=== PATIENT | male | born 1945 | race Caucasian/White ===

== ENCOUNTER 2023-03-20 17:35 | Inpatient (IN) | payer MEDICARE, BC, SELFPAY ==
[2023-03-20] VITALS (7 sets, daily range): BP systolic 117–159; BP diastolic 62–78; PULSE 82–95; RESP 18; TEMP 36.9; O2SAT 90–96; BMI 35.0
--- NOTE | 2023-03-20 18:48 | ED.LOWEXIN ---
HPI - Extremity Injury (Lower) General Time Seen by Provider: 18:49 <Jonna Valdez MD - Last Filed: 03/21/23 20:51> Date Seen: 03/20/23 <Jonna Valdez MD - Last Filed: 03/21/23 20:51> Chief Complaint: Extremity Pain/Injury, Lower <Jonna Valdez MD - Last Filed: 03/21/23 20:51> Stated Complaint: R knee pain <Jonna Valdez MD - Last Filed: 03/21/23 20:51> Time Seen by Provider: 03/20/23 18:09 <Jonna Valdez MD - Last Filed: 03/21/23 20:51> Source: patient and RN notes reviewed <Jonna Valdez MD - Last Filed: 03/21/23 20:51> Mode of arrival: ambulatory <Jonna Valdez MD - Last Filed: 03/21/23 20:51> Limitations: no limitations <Jonna Valdez MD - Last Filed: 03/21/23 20:51> History of Present Illness HPI Narrative: Eddie is a 77-year-old male ambulatory into the ED with right knee pain. He fell about 2 weeks ago but is knee did not bother him. About 3 days ago his knee started feeling more stiff. He drove up from [place] yesterday where he lives to come back up here in visit, knee was much more stiff, becoming more painful. Today he states he can barely even walk on it. He did start to have some chills and nausea just prior to coming in. He resides in [facility] and is up here visiting. He has had a right total knee arthroplasty sometime in May of 2022 or around there. Within about 3 weeks, he states the knee was infected and they went in and replace some parts. He was on vancomycin for 33 days and then had red man syndrome reportedly. He states they told him he was having a reaction to vancomycin simvastatin and took him off both of those. He went into the doctor and had a rash, was severely swollen. He states they took off 5.5 L and 16 lb via IV diuresis in 24 hours. He states he was told to never use vancomycin again. 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 He notes after the fall 2 weeks ago his knee was not bothering him, was not stiff or painful to walk on it at all. No noted fevers to date. No respiratory symptoms. He does state he has had a history of gout as well. <Jonna Valdez MD - Last Filed: 03/21/23 20:51> Related Data Home Medications: Home Medications Medication Instructions Recorded Confirmed flash glucose sensor (FreeStyle 03/20/23 03/20/23 Nadira 2 Sensor kit) furosemide 20 mg tablet 20 mg PO DAILY PRN swelling 03/20/23 03/20/23 irbesartan 75 mg tablet 75 mg PO DAILY 03/20/23 03/20/23 propranolol 120 mg capsule,24 120 mg PO DAILY 03/20/23 03/20/23 hr,extended release Lactobacillus acidophilus 10 20,000 mmu cells PO DAILY 03/21/23 03/21/23 billion cell capsule (Probiotic) aflibercept 2 mg/0.05 mL 2 mg intravitreal Q4W 03/21/23 03/21/23 intravitreal solution for injection (Eylea) glipizide 10 mg tablet 5 mg PO HS PRN 03/21/23 03/21/23 metformin 1,000 mg tablet 500 - 1,000 mg PO BID 03/21/23 03/21/23 <Jonna Valdez MD - Last Filed: 03/21/23 20:51> Allergies/Adverse Reactions: Allergies Allergy/AdvReac Type Severity Reaction Status Date / Time atorvastatin Allergy Verified 03/20/23 18:29 vancomycin Allergy Verified 03/20/23 18:29 <Jonna Valdez MD - Last Filed: 03/21/23 20:51> Review of Systems Status of ROS: Reports: 6 or more systems reviewed and unremarkable except as noted in History and below <Jonna Valdez MD - Last Filed: 03/21/23 20:51> [facility] Medical History: Medical History (Updated 03/21/23 @ 20:51 by Jonna Valdez MD) Hypertension ?I10 - Essential (primary) hypertension (ICD-10) Gout ?M10.9 - Gout, unspecified (ICD-10) Acid reflux ?K21.9 - Gastro-esophageal reflux disease without esophagitis (ICD-10) <Jonna Valdez MD - Last Filed: 03/21/23 20:51> Surgical History: Surgical History (Updated 03/21/23 @ 04:26 by Melissa Duran RN) Hx of cholecystectomy ?Z90.49 - Acquired absence of other specified parts of digestive tract (ICD-10) History of appendectomy ?Z90.49 - Acquired absence of other specified parts of digestive tract (ICD-10) <Jonna Valdez MD - Last Filed: 03/21/23 20:51> Social History: Social History What is your current living situation?: I presently have a place to live Problems where you live: no known problems Problems where you live details: no known problems In the past 12 months, utilities in danger of being shut off: no In past 12 months, lack of transportation kept you from medical appts, meetings, work, or getting things needed for daily living: no In the past 12 mos, have been you worried that your food would run out before you had money to buy more?: never true In the past 12 mos, the food you bought just didn't last and you didn't have money to buy more?: never true Highest level of school completed/degree received: 12th grade, no diploma Smoking Status: Never smoker Do you use any of these nicotine containing products: None Second hand tobacco smoke exposure: No How often do you have a drink containing alcohol: 2-4 times a month How often do you have six or more drinks on one occasion: Never AUDIT-C Alcohol total score: 2 Non-prescribed substance use: denies use Caffeine: Yes (soda) How often does anyone, including family, friends and others, physically hurt you: never How often does anyone, including family, friends and others, insult or talk down to you: never How often does anyone, including family, friends and others, threaten you with harm: never How often does anyone, including family, friends and others, scream or curse at you: never service: Yes <Jonna Valdez MD - Last Filed: 03/21/23 20:51> Exam Const: Vital Signs, click to edit/add: Vital Signs - 24 hr 03/20/23 22:22 03/20/23 22:23 03/20/23 22:30 Pulse Rate 87 85 84 Respiratory Rate Blood Pressure 117/62 Pulse Oximetry 93 94 92 03/20/23 22:45 03/20/23 23:00 03/20/23 23:15 Pulse Rate 82 82 82 Respiratory Rate Blood Pressure Pulse Oximetry 91 90 92 03/21/23 00:24 Pulse Rate 80 Respiratory Rate 12 Blood Pressure 121/64 Pulse Oximetry 94 Patient is alert, interactive, no apparent distress but is hanging onto an emesis bag. He is a very pleasant gentleman. Sclera clear, conjugate gaze. Face atraumatic. Neck without any masses. Lungs are clear with good air entry, no wheezing or crackles. Patient is able speak in complete sentences. CV regular rate and rhythm, no murmur, normal S1-S2. Abdomen is soft, no rebound or guarding, no organomegaly. His right leg is concerning to me. There is erythema and warmth of the skin trending from the knee and IV pattern down anteriorly over the front of the tibial area. It stops above the ankle. There does seem to be a joint effusion. He has a well-healed midline incision. I cannot attempt to flex his knee at all without him stating it is extremely painful and resisting. He truly will not let me attempt to bend at all. <Jonna Valdez MD - Last Filed: 03/21/23 20:51> Vital Signs, click to edit/add: Vital Signs - 24 hr 03/20/23 22:22 03/20/23 22:23 03/20/23 22:30 Pulse Rate 87 85 84 Respiratory Rate Blood Pressure 117/62 Pulse Oximetry 93 94 92 03/20/23 22:45 03/20/23 23:00 03/20/23 23:15 Pulse Rate 82 82 82 Respiratory Rate Blood Pressure Pulse Oximetry 91 90 92 03/21/23 00:24 Pulse Rate 80 Respiratory Rate 12 Blood Pressure 121/64 Pulse Oximetry 94 <Jonna Foley MD - Last Filed: 03/21/23 00:12> Documenting provider has reviewed patient's vital signs: yes <Jonna Valdez MD - Last Filed: 03/21/23 20:51> Course Course ED Course: Patient is obviously concerning for possible recurrent septic arthritis in replaced knee joint. We will x-ray his knee given that he had some recent trauma. Will get full complement of labs, this will include blood cultures. Will talk to Orthopedics on him. This is going to likely pose a significant difficulty if this is a septic arthritis as we are having challenges finding a placement at other tertiary institutions currently. Possibly this could be gout. He may end up needing to have the knee joint aspirated. <Jonna Valdez MD - Last Filed: 03/21/23 20:51> Reevaluation(s) Time of Reevaluation #1: 22:00 <Jonna Valdez MD - Last Filed: 03/21/23 20:51> Reevaluation #1: Patient's labs are reviewed and his lactate is just mildly elevated. Will initiate a L of fluids over 2 hours, I am going to give him some Zofran for some ongoing nausea. <Jonna Valdez MD - Last Filed: 03/21/23 20:51> Time of Reevaluation #2: 20:39 <Jonna Valdez MD - Last Filed: 03/21/23 20:51> Reevaluation #2: Went in with patient to check on him before leaving. He looked flushed. Recheck of his temperature is 101.3?. Blood cultures have already been done. Will order Myles Lowery from Orthopedics is here to see if we can obtain fluid from his knee. We are going to look at facilities to see if we can transfer as this is most certainly a septic joint. <Jonna Valdez MD - Last Filed: 03/21/23 20:51> Reevaluation #3: White blood cell count also elevated along with a significantly elevated CRP and procalcitonin. Orthopedics was able to tap his knee and retrieve approximately 65 mL of kaya pus. We did attempt to call every major hospital system to transfer the patient unfortunately there was no beds available. Discussed treatment plan with our orthopedic team and they will take the patient to the OR 1st thing in the morning for a washout. In the meantime we will start the patient on daptomycin and Rocephin IV. Patient will be NPO after midnight. <Jonna Foley MD - Last Filed: 03/21/23 00:12> Vital Signs Vital signs: Initial Vital Signs Temperature 98.5 F 03/20/23 18:30 Temperature Source Temporal Artery Scan 03/20/23 18:30 Pulse Rate 95 03/20/23 18:30 Respiratory Rate 18 03/20/23 18:30 Blood Pressure 159/78 H 03/20/23 18:30 Blood Pressure Mean 105 03/20/23 18:30 Blood Pressure Position Sitting 03/20/23 18:30 Pulse Oximetry 96 03/20/23 18:30 Oxygen Delivery Method Room Air 03/20/23 18:30 Vital Signs Temperature 98.5 F 03/20/23 18:30 Pulse Rate 95 03/20/23 18:30 Respiratory Rate 18 03/20/23 18:30 Blood Pressure 159/78 H 03/20/23 18:30 Pulse Oximetry 96 03/20/23 18:30 Oxygen Delivery Method Room Air 03/20/23 18:30 Temperature 99.8 F H 03/21/23 15:25 Pulse Rate 82 03/21/23 15:25 Respiratory Rate 16 03/21/23 15:25 Blood Pressure 131/70 03/21/23 15:25 Pulse Oximetry 94 03/21/23 15:25 Oxygen Delivery Method Room Air 03/21/23 11:00 <Jonna Valdez MD - Last Filed: 03/21/23 20:51> Initial Vital Signs Temperature 98.5 F 03/20/23 18:30 Temperature Source Temporal Artery Scan 03/20/23 18:30 Pulse Rate 95 03/20/23 18:30 Respiratory Rate 18 03/20/23 18:30 Blood Pressure 159/78 H 03/20/23 18:30 Blood Pressure Mean 105 03/20/23 18:30 Blood Pressure Position Sitting 03/20/23 18:30 Pulse Oximetry 96 03/20/23 18:30 Oxygen Delivery Method Room Air 03/20/23 18:30 Vital Signs Temperature 98.5 F 03/20/23 18:30 Pulse Rate 95 03/20/23 18:30 Respiratory Rate 18 03/20/23 18:30 Blood Pressure 159/78 H 03/20/23 18:30 Pulse Oximetry 96 03/20/23 18:30 Oxygen Delivery Method Room Air 03/20/23 18:30 Temperature 99.8 F H 03/21/23 15:25 Pulse Rate 82 03/21/23 15:25 Respiratory Rate 16 03/21/23 15:25 Blood Pressure 131/70 03/21/23 15:25 Pulse Oximetry 94 03/21/23 15:25 Oxygen Delivery Method Room Air 03/21/23 11:00 <Jonna Foley MD - Last Filed: 03/21/23 00:12> MDM - Extremity Injury (Lower) MDM Narrative Medical decision making narrative: 77-year-old male with a septic knee requiring probable ventral vision. At this time patient will be admitted here for IV antibiotics and a washout in the morning given the lack of hospital beds and the ability to transfer him at this time. <Jonna Foley MD - Last Filed: 03/21/23 00:12> Lab Data Attestation: I reviewed the patient's lab results. <Jonna Valdez MD - Last Filed: 03/21/23 20:51> Labs: Lab Results 03/20/23 Range/Units 19:25 WBC 13.58 H (4.50-11.00) K/uL RBC 4.71 (4.30-5.90) m/uL Hgb 14.0 (13.5-17.5) gm/dL Hct 42.3 (37.0-53.0) % MCV 90 (80-100) fL MCH 30 (26-34) pg MCHC 33 (32-36) gm/dL RDW Coeff of Geovanni 13.4 (11.5-15.5) % Plt Count 192 (140-440) K/uL Neut % (Auto) 86.5 H (42.0-72.0) % Lymph % (Auto) 5.8 L (20-44) % Rolette % (Auto) 7.2 (0.0-11.0) % Eos % (Auto) 0.2 (0.0-7.0) % Baso % (Auto) 0.1 (0.0-3.0) % Neut # (Auto) 11.70 H (1.7-7.0) K/uL Lymph # (Auto) 0.80 L (0.90-2.90) K/uL Rolette # (Auto) 1.00 H (0.00-0.90) K/UL Eos # (Auto) 0.00 (0.00-0.50) K/uL Baso # (Auto) 0.00 (0.00-0.30) K/uL Abs Immat Gran (auto) 0.00 (0.00-0.30) K/uL Imm/Tot Granulo (auto) 0.2 % ESR 20 H (2-15) mm/hr Sodium 134 L (135-149) mmol/L Potassium 4.6 (3.6-5.1) mmol/L Chloride 100 (96-114) mmol/L Carbon Dioxide 22 (20-32) mmol/L Anion Gap 12 (7-15) mEq/L BUN 30 (7-30) mg/dL Creatinine 1.6 H (0.5-1.5) mg/dL Estimated GFR 44 ml/min Glucose 230 H (60-115) mg/dL Lactate 2.2 H (0.5-1.9) mmol/L Uric Acid 9.0 H (2.2-8.4) mg/dL Calcium 9.6 (8.4-10.6) mg/dL Total Bilirubin 1.1 (0.1-1.5) mg/dL AST 38 H (12-35) U/L ALT 31 (4-50) U/L Alkaline Phosphatase 29 L (40-150) U/L C-Reactive Protein 25.7 H (0.5-1.0) mg/dL Total Protein 7.1 (6.0-8.3) g/dL Albumin 4.2 (3.3-5.0) g/dL Procalcitonin 38.30 H (<0.50) ng/mL <Jonna Valdez MD - Last Filed: 03/21/23 20:51> Lab Results 03/20/23 Range/Units 19:25 WBC 13.58 H (4.50-11.00) K/uL RBC 4.71 (4.30-5.90) m/uL Hgb 14.0 (13.5-17.5) gm/dL Hct 42.3 (37.0-53.0) % MCV 90 (80-100) fL MCH 30 (26-34) pg MCHC 33 (32-36) gm/dL RDW Coeff of Geovanni 13.4 (11.5-15.5) % Plt Count 192 (140-440) K/uL Neut % (Auto) 86.5 H (42.0-72.0) % Lymph % (Auto) 5.8 L (20-44) % Rolette % (Auto) 7.2 (0.0-11.0) % Eos % (Auto) 0.2 (0.0-7.0) % Baso % (Auto) 0.1 (0.0-3.0) % Neut # (Auto) 11.70 H (1.7-7.0) K/uL Lymph # (Auto) 0.80 L (0.90-2.90) K/uL Rolette # (Auto) 1.00 H (0.00-0.90) K/UL Eos # (Auto) 0.00 (0.00-0.50) K/uL Baso # (Auto) 0.00 (0.00-0.30) K/uL Abs Immat Gran (auto) 0.00 (0.00-0.30) K/uL Imm/Tot Granulo (auto) 0.2 % ESR 20 H (2-15) mm/hr Sodium 134 L (135-149) mmol/L Potassium 4.6 (3.6-5.1) mmol/L Chloride 100 (96-114) mmol/L Carbon Dioxide 22 (20-32) mmol/L Anion Gap 12 (7-15) mEq/L BUN 30 (7-30) mg/dL Creatinine 1.6 H (0.5-1.5) mg/dL Estimated GFR 44 ml/min Glucose 230 H (60-115) mg/dL Lactate 2.2 H (0.5-1.9) mmol/L Uric Acid 9.0 H (2.2-8.4) mg/dL Calcium 9.6 (8.4-10.6) mg/dL Total Bilirubin 1.1 (0.1-1.5) mg/dL AST 38 H (12-35) U/L ALT 31 (4-50) U/L Alkaline Phosphatase 29 L (40-150) U/L C-Reactive Protein 25.7 H (0.5-1.0) mg/dL Total Protein 7.1 (6.0-8.3) g/dL Albumin 4.2 (3.3-5.0) g/dL Procalcitonin 38.30 H (<0.50) ng/mL <Jonna Foley MD - Last Filed: 03/21/23 00:12> Imaging Data XR right knee: Attestation: I have reviewed the pertinent imaging results. <Jonna Foley MD - Last Filed: 03/21/23 00:12> Radiologist's impression: Fall 2 weeks ago, history of septic knee, history of gout. TECHNIQUE: Two views of the right knee. FINDINGS: There is a right TKA. Components appear well seated. Soft tissue swelling around the knee and knee joint effusion. No acute fracture or dislocation. No specific evidence for gout. <Jonna Foley MD - Last Filed: 03/21/23 00:12> Discharge Plan Discharge Clinical Impression: Septic joint of right knee joint <Jonna Valdez MD - Last Filed: 03/21/23 20:51> Patient Disposition: Admitted As Observation <Jonna Valdez MD - Last Filed: 03/21/23 20:51> Discharge Location: [facility] <Jonna Valdez MD - Last Filed: 03/21/23 20:51> Condition: Stable <Jonna Valdez MD - Last Filed: 03/21/23 20:51>
--- NOTE | 2023-03-20 18:54 | CRLHL7_ITS ---
For Patients: As a result of the Cures Act, medical imaging exams and procedure reports are released immediately into your electronic medical record. You may view this report before your referring provider. If you have questions, please contact your health care provider. INDICATION: Fall 2 weeks ago, history of septic knee, history of gout. TECHNIQUE: Two views of the right knee. FINDINGS: There is a right TKA. Components appear well seated. Soft tissue swelling around the knee and knee joint effusion. No acute fracture or dislocation. No specific evidence for gout. Dictated by Erasto Crowe MD @ 03/20/2023 8:00:28 PM (Electronically Signed)
--- OUTSIDE RECORDS SUMMARY | 2023-03-20 19:13 | XMS_ITS | Continuity of Care Document ---
Author Name Unknown Organization [facility] ter Address [address] [place] [address] Care Team Providers Care Fisher Swordfish Name Role Phone JARRETT MOHR Primary Care Physician Encounter [facility] [id number] Date(s): 05/26/22 - 05/26/22 [facility] [address] [place] [address] Discharge Disposition: Home or Self Care Attending Physician: ASIYA DONATO MD Admitting Physician: ASIYA DONATO MD Referring Physician: JARRETT MOHR MSN,PLASTIC PROCESS TECHNICIAN-BC Allergies, Adverse Reactions, Alerts No Known Medication Allergies Assessment and Plan Future Appointments Appointment Date:05/27/2022 09:30:00 AM Scheduled Provider: Location:[facility] Appointment Type:IV Med Therapy 90 (REGM) Appointment Date:05/28/2022 10:00:00 AM Scheduled Provider: Location:[facility] Appointment Type:IV Med Therapy 90 (REGM) Appointment Date:05/29/2022 09:30:00 AM Scheduled Provider: Location:[facility] Appointment Type:IV Med Therapy 90 (REGM) Appointment Date:05/30/2022 09:30:00 AM Scheduled Provider: Location:[facility] Appointment Type:IV Med Therapy 90 (REGM) Appointment Date:05/31/2022 09:30:00 AM Scheduled Provider: Location:[facility] Appointment Type:IV Med Therapy 90 (REGM) Appointment Date:06/01/2022 09:30:00 AM Scheduled Provider: Location:[facility] Appointment Type:IV Med Therapy 90 (REGM) Appointment Date:06/02/2022 09:30:00 AM Scheduled Provider: Location:[facility] Appointment Type:IV Med Therapy 90 (REGM) Appointment Date:06/03/2022 09:30:00 AM Scheduled Provider: Location:[facility] Appointment Type:IV Med Therapy 90 (REGM) Appointment Date:06/04/2022 09:30:00 AM Scheduled Provider: Location:[facility] Appointment Type:IV Med Therapy 90 (REGM) Appointment Date:06/05/2022 09:30:00 AM Scheduled Provider: Location:[facility] Appointment Type:IV Med Therapy 90 (REGM) Appointment Date:06/06/2022 09:30:00 AM Scheduled Provider: Location:[facility] Appointment Type:IV Med Therapy 90 (REGM) Appointment Date:06/07/2022 09:30:00 AM Scheduled Provider: Location:[facility] Appointment Type:IV Med Therapy 90 (REGM) Appointment Date:06/08/2022 09:30:00 AM Scheduled Provider: Location:[facility] Appointment Type:IV Med Therapy 90 (REGM) Appointment Date:06/09/2022 09:30:00 AM Scheduled Provider: Location:[facility] Appointment Type:IV Med Therapy 90 (REGM) Appointment Date:06/10/2022 09:30:00 AM Scheduled Provider: Location:[facility] Appointment Type:IV Med Therapy 90 (REGM) Appointment Date:06/11/2022 09:30:00 AM Scheduled Provider: Location:[facility] Appointment Type:IV Med Therapy 90 (REGM) Appointment Date:06/12/2022 09:30:00 AM Scheduled Provider: Location:[facility] Appointment Type:IV Med Therapy 90 (REGM) Appointment Date:06/13/2022 09:30:00 AM Scheduled Provider: Location:[facility] Appointment Type:IV Med Therapy 90 (REGM) Appointment Date:06/14/2022 09:30:00 AM Scheduled Provider: Location:[facility] Appointment Type:IV Med Therapy 90 (REGM) Appointment Date:06/15/2022 09:30:00 AM Scheduled Provider: Location:[facility] Appointment Type:IV Med Therapy 90 (REGM) Appointment Date:06/16/2022 09:30:00 AM Scheduled Provider: Location:[facility] Appointment Type:IV Med Therapy 90 (REGM) Appointment Date:06/17/2022 09:30:00 AM Scheduled Provider: Location:[facility] Appointment Type:IV Med Therapy 90 (REGM) Appointment Date:06/18/2022 09:30:00 AM Scheduled Provider: Location:[facility] Appointment Type:IV Med Therapy 90 (REGM) Appointment Date:06/19/2022 09:30:00 AM Scheduled Provider: Location:[facility] Appointment Type:IV Med Therapy 90 (REGM) Appointment Date:06/20/2022 09:30:00 AM Scheduled Provider: Location:[facility] Appointment Type:IV Med Therapy 90 (REGM) Appointment Date:06/21/2022 09:30:00 AM Scheduled Provider: Location:[facility] Appointment Type:IV Med Therapy 90 (REGM) Appointment Date:06/22/2022 09:30:00 AM Scheduled Provider: Location:[facility] Appointment Type:IV Med Therapy 90 (REGM) Immunizations Given and Recorded Vaccine Date Status Refusal Reason influenza virus vaccine, inactivated 03/23/22 Give n influenza virus vaccine, inactivated 04/03/21 Jalil rded influenza virus vaccine, inactivated 04/29/20 Give n SARS-CoV-2 mRNA-1273 bivalent booster 03/11/22 Giv en SARS-CoV-2 (COVID-19) mRNA-1273 vaccine 10/24/21 G iven SARS-CoV-2 (COVID-19) mRNA-1273 vaccine 04/25/21 R ecorded SARS-CoV-2 (COVID-19) mRNA-1273 vaccine 09/13/20 R ecorded SARS-CoV-2 (COVID-19) mRNA-1273 vaccine 08/16/20 R ecorded zoster vaccine, inactivated 06/16/21 Given zoster vaccine, inactivated 05/23/19 Recorded tetanus/diphth/pertuss (Tdap) adult/adol 05/23/19 Recorded influenza, unspecified formulation 05/23/19 Record ed pneumococcal 13-valent conjugate vaccine 04/02/15 Recorded zoster vaccine live 01/26/11 Recorded pneumococcal 23-polyvalent vaccine 01/26/11 Record ed Medications aspirin 325 mg oral tablet 325 mg = 1 tab, Oral, Daily, 0 Refill(s) Start Date: 04/22/22 Status: Ordered Contour Next Test Strips Contour Next Test Strips, check blood sugar BID, Supply, See Instructions, # 100 EA, 5 Refill(s), [facility]: [facility] Start Date: 07/01/21 Status: Ordered glipiZIDE 10 mg oral tablet 5 mg = 0.5 tab, Oral, Daily, # 180 tab, 1 Refill(s), [facility]: [facility], 172, cm, 12/03/21 13:07:00 CDT, Height/Length Dosing, 112, kg, 12/03/21 13:07:00 CDT, Weight Dosing Start Date: 01/23/22 Status: Ordered irbesartan 300 mg oral tablet 1 tab, Oral, Daily, # 90 tab, 1 Refill(s), [facility]acy: [facility], 172, cm, 12/03/21 13:07:00 CDT, Height/Length Dosing, 112, kg, 12/03/21 13:07:00 CDT, Weight Dosing Start Date: 12/23/21 Status: Ordered Libre2 sensors Libre2 sensors, please dispense 2 sensors with a refill. thanks - patient has a coupon card, Supply, See Instructions, # 1 EA, 0 Refill(s), [facility] Start Date: 09/11/21 Status: Ordered metFORMIN 1000 mg oral tablet 1 tab, Oral, BID, 1,000 in the morning nothing to 500 mg at night depending on what his numbers arerunning, # 180 tab, 1 Refill(s), [facility]acy: [facility], 172, cm, 12/03/21 13:07:00 CDT, Height/Length Dosing, 112, kg, 12/03/21 13:07:00 CDT, Weight D... Start Date: 12/23/21 Status: Ordered oxyCODONE 5 mg oral tablet 10 mg = 2 tab, Oral, every 6 hr, PRN pain, moderate, # 12 tab, 0 Refill(s), [facility]: [facility], 172.08, cm, 04/21/22 16:38:00 CDT, Height/Length Dosing, 111.1, kg, 04/21/22 16:38:00 CDT, Weight Dosing Start Date: 04/22/22 Stop Date: 04/25/22 Status: Ordered propranolol 120 mg oral capsule, extended release 1 cap, Oral, Daily, # 90 cap, 1 Refill(s), [facility]: [facility], 172, cm, 12/03/21 13:07:00 CDT, Height/Length Dosing, 112, kg, 12/03/21 13:07:00 CDT, Weight Dosing Start Date: 12/23/21 Status: Ordered sildenafil 25 mg oral tablet 25 mg = 1 tab, Oral, Daily, 1 hour before sexual activity, # 10 tab, 0 Refill(s), [facility]acy: [facility] Start Date: 07/01/21 Status: Ordered Tylenol 8 HR Arthritis Pain 650 mg oral tablet, extended release 1,300 mg = 2 tab, Oral, every 8 hr, PRN as needed for pain Start Date: 04/22/22 Status: Ordered vancomycin 1 g/200 mL-D5% intravenous solution 2 g =, IV, every 24 hr, will be recieving through the [facility] Outpatient infusion clinic, # 42 EA, 0 Refill(s), other reason (Rx) Start Date: 05/15/22 Stop Date: 06/26/22 Status: Ordered Problem List Condition Confirmation Course Effective Dates Status H ealth Status Informant Arthritis of left knee Confirmed Active Diabetes mellitus type II 1 Confirmed Active Erectile dysfunction Confirmed Active Acid reflux Confirmed Active Gout 2 Confirmed Active Hypertension 3 Confirmed Active Hyperlipidemia 4 Confirmed Active Obesity 5 Confirmed Active Osteoarthritis of right knee joint Confirmed Active Shoulder joint pain Confirmed Active 1Records from Dr. Riley Diane, [facility] 2Records from Dr. Riley Diane, [facility] 3Records from Dr. Riley Diane, [facility] 4Records from Dr. Riley Diane, [facility] 5Records from Dr. Riley Diane, [facility] Procedures Procedure Date Related Diagnosis Body Site Status Right total knee arthroplasty. 04/21/22 Completed Left total knee arthroplasty. 12/02/21 Completed Screening colonoscopy (Repeat 2021) 1 12/01/16 Completed Appendectomy 2 Completed Cholecystectomy 3 Complet ed Removal of cataract 4 Com pleted 12 mm sessile polyp Records from Dr. Riley Diane, [facility] 2Records from Dr. Riley Diane, [facility] 3Records from Dr. Riley Diane, [facility] 4Records from Dr. Riley Diane, [facility] Social History Social History Type Response Smoking Status Never (less than 100 in lifetime) entered on: 06/16/21 Sex Patient Care team information Personnel Name: JARRETT MOHR,PLASTIC PROCESS TECHNICIAN- Address: Address: [address]
--- OUTSIDE RECORDS SUMMARY | 2023-03-20 19:13 | XMS_ITS | Continuity of Care Document ---
Author Name Unknown Organization [facility] ter Address [address] [place] [address] Care Team Providers Care Hotbed Lever Operator Name Role Phone JARRETT MOHR Primary Care Physician [phone] Encounter [facility] Date(s): 07/10/22 - 07/10/22 [facility] [address] [place] [address] Discharge Disposition: Home or Self Care Attending Physician: ASIYA DONATO MD Admitting Physician: ASIYA DONATO MD Referring Physician: JARRETT MOHR MSN,PROSPECTING OBSERVER-BC Allergies, Adverse Reactions, Alerts Substance Reaction Severity Status vancomycin Acute kidney injury due to nephrotoxicity Angioedema Rash Severe Active Immunizations Given and Recorded Vaccine Date Status [...] pneumococcal 23-polyvalent vaccine 01/26/11 Record ed Medications Contour Next Test Strips Contour Next Test Strips, check blood sugar BID, Supply, See Instructions, # 100 EA, 5 Refill(s), [facility]acy: [facility] Start Date: 07/01/21 Status: Ordered furosemide 20 mg oral tablet 20 mg = 1 tab, Oral, Daily, PRN other (see comment), take 1 tab as needed for swelling, # 5 tab, 0 Refill(s), Pharmacy: [facility], 172.08, cm, 06/28/22 12:24:00 KNITTING MACHINE FIXER HEAD, Height/Length Dosing, 109.5, kg, 06/26/22 12:11:00 KNITTING MACHINE FIXER HEAD, Weight Dosing Start Date: 06/30/22 Status: Ordered furosemide 20 mg oral tablet 40 mg = 2 tab, Oral, BID, # 8 tab, 0 Refill(s), Pharmacy: [facility], 172.08, cm, 06/26/22 12:11:00 KNITTING MACHINE FIXER HEAD, Height/Length Dosing, 109.5, kg, 06/26/22 12:11:00 KNITTING MACHINE FIXER HEAD, Weight Dosing Start Date: 06/28/22 Status: Ordered furosemide 40 mg oral tablet 40 mg = 1 tab, Oral, BID, # 30 tab, 0 Refill(s), Pharmacy: [facility], 172.08, cm, 06/26/22 12:11:00 KNITTING MACHINE FIXER HEAD, Height/Length Dosing, 109.5, kg, 06/26/22 12:11:00 KNITTING MACHINE FIXER HEAD, Weight Dosing Start Date: 06/28/22 Status: Ordered glipiZIDE 10 mg oral tablet 5 mg = 0.5 tab, Oral, Daily, # 180 tab, 1 Refill(s), Pharmacy: [facility], 172.08, cm, 05/15/22 18:25:00 KNITTING MACHINE FIXER HEAD, Height/Length Dosing, 106.4, kg, 05/15/22 18:25:00 KNITTING MACHINE FIXER HEAD, Weight Dosing Start Date: 05/28/22 Status: Ordered irbesartan 300 mg oral tablet 1 tab, Oral, Daily, # 90 tab, 1 Refill(s), Pharmacy: [facility], 172.08, cm, 06/28/22 12:24:00 KNITTING MACHINE FIXER HEAD, Height/Length Dosing, 109.5, kg, 06/26/22 12:11:00 KNITTING MACHINE FIXER HEAD, Weight Dosing Start Date: 06/30/22 Status: Ordered Libre2 sensors Libre2 sensors, please dispense 2 sensors with a refill. thanks - patient has a coupon card, Supply, See Instructions, # 1 EA, 0 Refill(s), Pharmacy: [facility] Start Date: 09/11/21 Status: Ordered metFORMIN 1000 mg oral tablet 1 tab, Oral, BID, # 180 tab, 1 Refill(s), [facility], 172.08, cm, 06/28/22 12:24:00 KNITTING MACHINE FIXER HEAD,Height/Length Dosing, 109.5, kg, 06/26/22 12:11:00 KNITTING MACHINE FIXER HEAD, Weight Dosing Start Date: 06/30/22 Status: Ordered propranolol 120 mg oral capsule, extended release 1 cap, Oral, Daily, # 90 cap, 1 Refill(s), [facility], 172.08, cm, 06/28/22 12:24:00 KNITTING MACHINE FIXER HEAD, Height/Length Dosing, 109.5, kg, 06/26/22 12:11:00 KNITTING MACHINE FIXER HEAD, Weight Dosing Start Date: 06/30/22 Status: Ordered sildenafil 25 mg oral tablet 25 mg = 1 tab, Oral, Daily, 1 hour before sexual activity, # 10 tab, 0 Refill(s), Pharmacy: [facility] Start Date: 07/01/21 Status: Ordered Tylenol 8 HR Arthritis Pain 650 mg oral tablet, extended release 1,300 mg = 2 tab, Oral, every 8 hr, PRN as needed for pain Start Date: 04/22/22 Status: Ordered Problem List Condition Confirmation Course Effective Dates Status H ealth Status Informant Arthritis of left knee Confirmed Active Diabetes mellitus type II 1 Confirmed Active Erectile dysfunction Confirmed Active Acid reflux Confirmed Active Gout 2 Confirmed Active Hypertension 3 Confirmed Active Hyperlipidemia 4 Confirmed Active 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 Riley Diane, [facility] 2Records from Dr. Riley Diane, [facility] 3Records from Dr. Riley Diane, [facility] 4Records from Dr. Riley Diane, [facility] 5Records from Dr. Riley Diane, [facility] Procedures Procedure Date Related Diagnosis Body Site Status Revision right total knee arthroplasty, irrigation and debridement with exchange of polyethylene. 1 05/12/22 Completed Right total knee arthroplasty. 04/21/22 Completed Left total knee arthroplasty. 12/02/21 Completed Screening colonoscopy (Repeat 2021) 2 12/01/16 Completed Appendectomy 3 Completed Cholecystectomy 4 Complet ed Removal of cataract 5 Com pleted 1Revision right total knee arthroplasty, irrigation and debridement with exchange of polyethylene. 22 mm sessile polyp Records from Dr. Riley Diane, [facility] 3Records from Dr. Riley Diane, [facility] 4Records from Dr. Riley Diane, [facility] 5Records from Dr. Riley Diane, [facility] Results Laboratory List Name Date Basic Metabolic Panel (BMP) 07/10/22 Most recent to oldest [Reference Range]: 1 BUN [6-20 mg/dL] 22 mg/dL *HI* (07/10/22 9:16 AM) Glucose Level [70-100 mg/dL] 326 mg/dL *HI* (07/10/22 9:16 AM) Potassium Level [3.5-5.5 mmol/L] 4.1 mmo l/L (07/10/22 9:16 AM) Sodium Level [135-150 mmol/L] 139 mmol/L (07/10/22 9:16 AM) Calcium Level [8.4-10.4 mg/dL] 8.4 mg/dL (07/10/22 9:16 AM) CO2 [22-32 mmol/L] 28 mmol/L (07/10/22 9:16 AM) eGFR Non-AA [>=60 mL/min/1.73 m2] 49 mL/ min/1.73 m2 *LOW* (07/10/22 9:16 AM) eGFR AA [>=60 mL/min/1.73 m2] 60 mL/min/ 1.73 m2 (07/10/22 9:16 AM) Chloride Level [95-110 mmol/L] 100 mmol/ L (07/10/22 9:16 AM) BUN/Creat Ratio [6.0-22.0 ratio] 15.7 ra viri (07/10/22 9:16 AM) Creatinine Level [0.66-1.25 mg/dL] 1.40 mg/dL *HI* (07/10/22 9:16 AM) Anion Gap [3.0-11.0 mmol/L] 11.0 mmol/L (07/10/22 9:16 AM) Social History Social History Type Response Tobacco Never tobacco user T obacco Use:. Sex Patient Care team information Personnel Name: JARRETT MOHR MSN,[facility]- Address: Address: [address] [place], [place] [address]
--- OUTSIDE RECORDS SUMMARY | 2023-03-20 19:13 | XMS_ITS | Continuity of Care Document ---
Author Name Unknown Organization [facility] ter Address [address] [place] [address] Care Team Providers Care Watermaster Name Role Phone JARRETT MOHR Primary Care Physician [phone] Encounter [facility]_[place] Date(s): 05/08/22 - 05/08/22 [address] [place] [address] Discharge Disposition: Home or Self Care Attending Physician: ASIYA DONATO MD Admitting Physician: ASIYA DONATO MD Referring Physician: JARRETT MOHR MSN,HAM FACER-BC Allergies, Adverse Reactions, Alerts No Known Medication Allergies Assessment and Plan Future Appointments Immunizations Given and Recorded Vaccine Date Status [...] 0 Refill(s) Start Date: 04/22/22 Status: Ordered CeleBREX 200 mg oral capsule 400 mg = 2 cap, Oral, With Morning Meal, # 28 cap, 0 Refill(s), [facility]: [facility], 172.08, cm, 04/21/22 16:38:00 CDT, Height/Length Dosing, 111.1, kg, 04/21/22 16:38:00 CDT, Weight Dosing Start Date: 04/22/22 Stop Date: 05/06/22 Status: Ordered Colace 100 mg oral capsule 100 mg = 1 cap, Oral, BID, PRN constipation, 0 Refill(s) Start Date: 04/22/22 Status: Ordered Contour Next Test Strips Contour Next Test Strips, check blood sugar BID, Supply, See Instructions, # 100 EA, 5 Refill(s), Pharmacy: [facility] Start Date: 07/01/21 Status: Ordered glipiZIDE 10 [...] Instructions, # 1 EA, 0 Refill(s), Pharmacy: [facility] Start Date: 09/11/21 Status: Ordered metFORMIN 1000 mg oral tablet 1 tab, Oral, BID, 1,000 in the morning nothing to 500 mg at night depending on what his numbers arerunning, # 180 tab, 1 Refill(s), [facility]acy: [facility], 172, cm, 12/03/21 13:07:00 CDT, Height/Length Dosing, 112, kg, 12/03/21 13:07:00 CDT, Weight D... Start Date: 12/23/21 Status: Ordered oxyCODONE 5 mg oral tablet 10 mg = 2 tab, Oral, every 6 hr, PRN pain, moderate, # 12 tab, 0 Refill(s), [facility]: [facility], 172.08, cm, 04/21/22 16:38:00 CDT, Height/Length Dosing, 111.1, kg, 04/21/22 16:38:00 CDT, Weight Dosing Start Date: 04/22/22 Stop Date: 04/25/22 Status: Ordered pregabalin 75 mg oral capsule 75 mg = 1 cap, Oral, BID, # 8 cap, 0 Refill(s), [facility], 172.08, cm, 04/21/22 16:38:00 CDT, Height/Length Dosing, 111.1, kg, 04/21/22 16:38:00 CDT, Weight Dosing Start Date: 04/22/22 Stop Date: 04/26/22 Status: Ordered propranolol 120 mg oral capsule, extended release 1 cap, Oral, Daily, # 90 cap, 1 Refill(s), [facility], 172, cm, 12/03/21 13:07:00 CDT, Height/Length Dosing, 112, kg, 12/03/21 13:07:00 CDT, Weight Dosing Start Date: 12/23/21 Status: Ordered sildenafil 25 mg oral tablet 25 mg = 1 tab, Oral, Daily, 1 hour before sexual activity, # 10 tab, 0 Refill(s), Pharmacy: [facility] Start Date: 07/01/21 Status: Ordered Tylenol [...] reflux Confirmed Active Gout 2 Confirmed Active HTN - Hypertension 3 Confirmed Active Hyperlipidemia 4 Confirmed Active Obesity 5 Confirmed Active Osteoarthritis of right knee joint Confirmed Active Shoulder joint pain Confirmed Active 1Records from Dr. Riley Diane, [facility] 2Records from Dr. Riley Diane, [facility] 3Records from Dr. Riley Diane, [facility] 4Records from Dr. Riley Diane, [facility] 5Records from Dr. Riley Diane, [facility] Procedures Procedure Date Related Diagnosis Body Site Status Left total knee arthroplasty. 12/02/21 Completed Screening colonoscopy (Repeat 2021) 1 12/01/16 Completed Appendectomy 2 Completed Cholecystectomy 3 Complet ed Removal of cataract 4 Com pleted 12 mm sessile polyp Records from Dr. Riley Diane, [facility] 2Records from Dr. Riley Diane, [facility] 3Records from Dr. Riley Diane, [facility] 4Records from Dr. Riley Diane, [facility] Social History Social History Type Response Smoking Status Never (less than 100 in lifetime) entered on: 06/16/21 Sex Patient Care team information Care Team Personnel Name: JARRETT MOHR MSN,[facility]- Position: Physician Member Role: Informed Provider Address: Address: [address] [place] [address] Name: KALEE GUO MSN,[facility]- Position: Physician Member Role: Nurse Practitioner Address: Address: [address] [place] [address] Name: SARAI BOWEN MSN,[facility]- Position: Physician Member Role: Nurse Practitioner Address: Address: [address] [place] [address] Care Team Related Persons Name: ASTER MOYER Address: Home [address] [place] [address], [id number]
--- OUTSIDE RECORDS SUMMARY | 2023-03-20 19:13 | XMS_ITS | Continuity of Care Document ---
Author Name Unknown Organization [facility] ter Address [address] [place] [phone] Care Team Providers Care Hospice Care Sales Consultant Name Role Phone ONUR JARRETT Catherine Primary Care Physician Encounter REGM_IA Date(s): 05/16/22 - 07/30/22 [facility] [address] [place] [phone] Encounter Diagnosis Infection of joint(Discharge Diagnosis) - 05/15/22 Osteomyelitis, unspecified(Final) - Discharge Disposition: Home or Self Care Attending Physician: SARAI BOWEN MSN,AGACNP-BC,WAITER/WAITRESS-BC Admitting Physician: SARAI BOWEN MSN,AGACNP-BC,WAITER/WAITRESS-BC Referring Physician: SARAI BOWEN MSN,AGACNP-BC,WAITER/WAITRESS-BC Allergies, Adverse Reactions, Alerts Substance Reaction Severity Status vancomycin Acute kidney injury due to nephrotoxicity Angioedema Rash Severe Active Assessment and Plan Future Scheduled Tests Laboratory* Basic Metabolic Panel 07/27/22 Functional Status 05/19/22 Other exposure to Infectious Disease Non e Immunizations Given and Recorded Vaccine Date Status [...] Instructions, # 100 EA, 5 Refill(s), [facility] Start Date: 07/01/21 Status: Ordered furosemide 20 mg oral tablet 20 mg = 1 tab, Oral, Daily, PRN other (see comment), take 1 tab as needed for swelling, # 5 tab, 0 Refill(s), [facility]acy: [facility], 172.08, cm, 06/28/22 12:24:00 DIRECTOR OF PUBLIC SAFETY, Height/Length Dosing, 109.5, kg, 06/26/22 12:11:00 DIRECTOR OF PUBLIC SAFETY, Weight Dosing Start Date: 06/30/22 Status: Ordered furosemide 20 mg oral tablet 40 mg = 2 tab, Oral, BID, # 8 tab, 0 Refill(s), Pharmacy: [facility], 172.08, cm, 06/26/22 12:11:00 DIRECTOR OF PUBLIC SAFETY, Height/Length Dosing, 109.5, kg, 06/26/22 12:11:00 DIRECTOR OF PUBLIC SAFETY, Weight Dosing Start Date: 06/28/22 Status: Ordered furosemide 40 mg oral tablet 40 mg = 1 tab, Oral, BID, # 30 tab, 0 Refill(s), [facility]acy: [facility], 172.08, cm, 06/26/22 12:11:00 DIRECTOR OF PUBLIC SAFETY, Height/Length Dosing, 109.5, kg, 06/26/22 12:11:00 DIRECTOR OF PUBLIC SAFETY, Weight Dosing Start Date: 06/28/22 Status: Ordered glipiZIDE 10 mg oral tablet 5 mg = 0.5 tab, Oral, Daily, # 180 tab, 1 Refill(s), [facility]: [facility], 172.08, cm, 05/15/22 18:25:00 DIRECTOR OF PUBLIC SAFETY, Height/Length Dosing, 106.4, kg, 05/15/22 18:25:00 DIRECTOR OF PUBLIC SAFETY, Weight Dosing Start Date: 05/28/22 Status: Ordered irbesartan 300 mg oral tablet 1 tab, Oral, Daily, # 90 tab, 1 Refill(s), [facility]: [facility], 172.08, cm, 06/28/22 12:24:00 DIRECTOR OF PUBLIC SAFETY, Height/Length Dosing, 109.5, kg, 06/26/22 12:11:00 DIRECTOR OF PUBLIC SAFETY, Weight Dosing Start Date: 06/30/22 Status: Ordered Libre2 sensors Libre2 sensors, please dispense 2 sensors with a refill. thanks - patient has a coupon card, Supply, See Instructions, # 1 EA, 0 Refill(s), [facility]acy: [facility] Start Date: 09/11/21 Status: Ordered metFORMIN 1000 mg oral tablet 1 tab, Oral, BID, # 180 tab, 1 Refill(s), [facility]acy: [facility], 172.08, cm, 06/28/22 12:24:00 DIRECTOR OF PUBLIC SAFETY,Height/Length Dosing, 109.5, kg, 06/26/22 12:11:00 DIRECTOR OF PUBLIC SAFETY, Weight Dosing Start Date: 06/30/22 Status: Ordered propranolol 120 mg oral capsule, extended release 1 cap, Oral, Daily, # 90 cap, 1 Refill(s), [facility]acy: [facility], 172.08, cm, 06/28/22 12:24:00 DIRECTOR OF PUBLIC SAFETY, Height/Length Dosing, 109.5, kg, 06/26/22 12:11:00 DIRECTOR OF PUBLIC SAFETY, Weight Dosing Start Date: 06/30/22 Status: Ordered sildenafil 25 mg oral tablet 25 mg = 1 tab, Oral, Daily, 1 hour before sexual activity, # 10 tab, 0 Refill(s), Pharmacy: [facility] Start Date: 07/01/21 Status: Ordered Tylenol [...] pain Confirmed Active 1Records from Dr. Riley Diane [facility] 2Records from Dr. Riley Diane [facility] 3Records from Dr. Rilye Diane, [facility] 4Records from Dr. Riley Diane, [facility] 5Records from Dr. Riley Diane, [facility] Procedures Procedure Date Related Diagnosis Body Site [...] mm sessile polyp Records from Dr. Riley Diane [facility] 3Records from Dr. Riley Diane, [facility] 4Records from Dr. Riley Diane, [facility] 5Records from Dr. Riley Diane, [facility] Results Laboratory List Name Date Creatinine 06/02/22 Creatinine 05/17/22 Most recent to oldest [Reference Range]: 1 2 eGFR Non-AA [>=60 mL/min/1.73 m2] 82 mL/ min/1.73 m2 (06/02/22 9:04 AM) 73 mL/min/1.73 m2 (05/17/22 3:48 PM) eGFR AA [>=60 mL/min/1.73 m2] 99 mL/min/ 1.73 m2 (06/02/22 9:04 AM) 88 mL/min/1.73 m2 (05/17/22 3:48 PM) Creatinine Level [0.66-1.25 mg/dL] 0.90 mg/dL (06/02/22 9:04 AM) 1.00 mg/dL (05/17/22 3:48 PM) Vital Signs Most recent to oldest [Reference Range]: 1 2 3 Temperature Tympanic [36.6-37.9 Deg C] 35.9 Deg C *LOW* (12/6/22 9:20 AM) 35.7 Deg C *LOW* (05/28/22 10:30 AM) 36.1 Deg C *LOW* (05/27/22 1:10 PM) Temperature Temporal Artery [36-38 Deg C] 36.2 Deg C (06/17/22 8:40 AM) 36.4 Deg C (06/16/22 8:41 AM) 36.3 Deg C (06/15/22 9:20 AM) Temperature Temporal Artery (DegF) [97.3-100 Deg F] 97.16 Deg F *LOW* (06/17/22 8:40 AM) 96.26 Deg F *LOW* (06/12/22 9:52 AM) 96.98 Deg F *LOW* (06/10/22 9:06 AM) Peripheral Pulse Rate [60-100 bpm] 74 bpm (06/17/22 9:24 AM) 74 bpm (06/17/22 8:40 AM) 61 bpm (06/16/22 8:41 AM) Heart Rate Monitored [60-100 bpm] 72 bpm (05/23/22 9:39 AM) 68 bpm (05/22/22 9:42 AM) Respiratory Rate [12-24 br/min] 18 br/min (06/17/22 9:24 AM) 18 br/min (06/17/22 8:40 AM) 18 br/min (06/16/22 8:41 AM) Blood Pressure [90-140/60-90 mmHg] 117/84mmHg (06/17/22 9:24 AM) 125/64mmHg (06/17/22 8:40 AM) 123/77mmHg (06/16/22 8:41 AM) Mean Arterial Pressure, Cuff [65-140 mmHg] 84 mmHg (06/17/22 8:40 AM) 93 mmHg (06/13/22 9:10 AM) 88 mmHg (06/12/22 9:52 AM) Blood Pressure Location Left arm (06/17/22 8:40 AM) Left arm (06/13/22 9:10 AM) Left arm (06/12/22 9:52 AM) Apical Rhythm Regular (05/19/22 11:40 AM) Blood Pressure Method Automatic (06/17/22 8:40 AM) Automatic (06/13/22 9:10 AM) Automatic (06/12/22 9:52 AM) Social History Social History Type Response Tobacco Never tobacco user T obacco Use:. Sex Hospital Discharge Instructions Patient Education 06/17/2022 09:43:29 Drug Allergy Drug Allergy-Vancomycin *Discontinue Vancomycin infusions *Take Benadryl 50mg oral every 6 hours as needed *supervisor prep prescription for Levaquin 750mg daily *Follow up with Dr Juárez as planned A drug allergy happens when the body's disease-fighting system (immune system) reacts badly to a medicine. Drug allergies range from mild to severe. Some allergic reactions occur one week or more after you are exposed to a medicine (delayed reaction). A sudden (acute), severe allergic reaction that affects multiple areas of the body is called an anaphylactic reaction (anaphylaxis). Anaphylaxis can be life-threatening. All allergic reactions to a medicine require medical evaluation, even if the allergic reaction appears to be mild. What are the causes? This condition is caused by the immune system wrongly identifying a medicine as being harmful. Whenthis happens, the body releases proteins (antibodies) and other compounds, such as histamine, into the bloodstream. This causes swelling in certain tissues and reduces blood flow to important areas, such as the heart and lungs. Almost any medicine can cause an allergic reaction. Medicines that commonly cause allergic reactions (are common allergens) include: ??? Penicillin. ??? Sulfa medicines (sulfonamides). ??? Medicines that numb certain areas of the body (local anesthetics). ??? X-ray dyes that contain iodine. What are the signs or symptoms? Common symptoms of a mild allergic reaction include: ??? Nasal congestion. ??? Tingling in the mouth. ??? An itchy, red rash. Common symptoms of a severe allergic reaction include: ??? Swelling of the eyes, lips, face, or tongue. ??? Swelling of the back of the mouth and the throat. ??? Wheezing. ??? A hoarse voice. ??? Itchy, red, swollen areas of skin (hives). ??? Dizziness or light-headedness. ??? Fainting. ??? Anxiety or confusion. ??? Abdominal pain. ??? Difficulty breathing, speaking, or swallowing. ??? Chest tightness. ??? Fast or irregular heartbeats (palpitations). ??? Vomiting. ??? Diarrhea. How is this diagnosed? This condition is diagnosed based on a physical exam and your history of recent exposure to one or more medicines. You may be referred for follow-up testing by a health care provider who specializes in allergies. This testing can confirm the diagnosis of a drug allergy and determine which medicinesyou are allergic to. Testing may include: ??? Skin tests. These may involve: ??? Injecting a small amount of the possible allergen between layers of your skin (intradermal injection). ??? Applying patches to your skin. ??? Blood tests. ??? Drug challenge. For this test, a health care provider gives you a small amount of a medicine ingradual doses while watching for an allergic reaction. If you are unsure of what caused your allergic reaction, your health care provider may ask you for: ??? Information about all medicines that you take on a regular basis. ??? The date and time of your reaction. How is this treated? There is no cure for allergies. However, an allergic reaction can be treated with: ??? Medicines that help: ??? Reduce pain and swelling (NSAIDs). ??? Relieve itching and hives (antihistamines). ??? Reduce swelling (corticosteroids). ??? Respiratory inhalers. These are inhaled medicines that help open (dilate) the airways in your lungs. ??? Injections of medicine that helps to relax the muscles in your airways and tighten your blood vessels (epinephrine). Severe allergic reactions, such as anaphylaxis, require immediate treatment in a hospital. You may need to be hospitalized for observation. You may also be prescribed rescue medicines, such as epinephrine. Epinephrine comes in many forms, including what is commonly called an auto-injector pen (pre-filled automatic epinephrine injection device). Follow these instructions at home: If you have a severe allergy ??? Always keep an auto-injector pen or your anaphylaxis kit near you. These can be lifesaving if you have a severe reaction. Use your auto-injector pen or anaphylaxis kit as told by your health careprovider. ??? Make sure that you, the members of your household, and your employer know: ??? How to use an anaphylaxis kit. ??? How to use an auto-injector pen to give you an epinephrine injection. ??? Replace your epinephrine immediately after you use your auto-injector pen, in case you have another reaction. ??? Wear a medical alert bracelet or necklace that states your drug allergy, if told by your healthcare provider. General instructions ??? Avoid??medicines that you are allergic to. ??? Take xzjw-lob-qfnstvf and prescription medicines only as told by your health care provider. ??? If you were given medicines to treat your reaction, do not drive until your health care provider approves. ??? If you have hives or a rash: ??? Use an lgnj-sah-bwyhzmx antihistamine??as told by your health care provider. ??? Apply cold, wet cloths (cold compresses) to your skin or take baths or showers in cool water. Avoid hot water. ??? If you had tests done, it is up to you to get your test results. Ask your health care provider when your results will be ready. ??? Tell any health care providers who care for you that you have a drug allergy. ??? Keep all follow-up visits as told by your health care provider. This is important. Contact a health care provider if: ??? You think that you are having a mild allergic reaction. Symptoms of an allergic reaction usually start within 30 minutes after you are exposed to a medicine. ??? You have symptoms that last more than 2 days after your reaction. ??? Your symptoms get worse. ??? You develop new symptoms. Get help right away if: ??? You needed to use epinephrine. ??? An epinephrine injection helps to manage life-threatening allergic reactions, but you still need to go to the emergency room even if epinephrine seems to work. This is important because anaphylaxis may happen again within 72 hours (rebound anaphylaxis). ??? If you used epinephrine to treat anaphylaxis outside of the hospital, you need additional medical care. This may include more doses of epinephrine. ??? You develop symptoms of a severe allergic reaction. These symptoms may represent a serious problem that is an emergency. Do not wait to see if the symptoms will go away. Use your auto-injector pen or anaphylaxis kit as you have been instructed, and get medical help right away. Call your local emergency services (911 in the [place] Do not drive yourself to the hospital. Summary ??? A drug allergy happens when the body's disease-fighting system reacts badly to a medicine. ??? Drug allergies range from mild to severe. In some cases, an allergic reaction may be life-threatening. ??? If you have a severe allergy, always keep an auto-injector pen or your anaphylaxis kit near you. This information is not intended to replace advice given to you by your health care provider. Make sure you discuss any questions you have with your health care provider. Document Revised: 08/22/2021 Document Reviewed: 12/28/2018 [employer] Patient Education ?? 2021 [employer] Procedure note * DUSTY GIORDANO CRNA: PERFORM, SIGN, VERIFY Event Display: Procedure Note Authored Date: [id number] Patient: SILVIO MOYER Age: 77 years Sex: Male : 1945 Associated Diagnoses: None Author: DUSTY GIORDANO CRNA Procedure Central line insertion procedure Date/ Time: 05/27/2022 14:24:00. Confirmed: patient, procedure, side, site, safety procedures followed. Performed by: self. Informed consent: signed by patient. Indication: medication delivery. Preparation: sterile preparation of site (in usual fashion, with 2% chlorhexidine gluconate, with full drapes, gown, gloves and mask), vessel was identified ultrasound guided. Anesthesia: local, 1% xylocaine. Technique: ultrasound localization used, non-tunneled, Modified Seldinger Technique, location (right, basilic vein, 1 attempts), catheter type (4 Fr, 2 lumen catheter, 55 cm in length, with antimicrobial coating, Power PICC), location confirmed via flashback, catheter flushed with saline, total catheter length 50 cm, external catheter length 4 cm, dressing applied (catheter secured, semi-permeable transparent dressing applied), monitoring during procedure cardiac, Depth of Catheter Inserted 46 cm, Trimmed. Procedure tolerated: well. Findings: catheter tip located Upper Arm Measurement 32 cm , Location confirmed by 3CG. Complications at the time of procedure: none. Electronically Signed on 05/27/22 02:25 PM DUSTY GIORDANO CRNA Patient Care team information Personnel Name: JARRETT MOHR MSN,WAITER/WAITRESS-BC Address: Address: [address] [place], [place] [address]
--- OUTSIDE RECORDS SUMMARY | 2023-03-20 19:13 | XMS_ITS | Continuity of Care Document ---
Author Name Unknown Organization [facility] ter Address [address] [place] [phone] Care Team Providers Care Hat Lacer Name Role Phone MOHR JARRETT Catherine Primary Care Physician Encounter REG_IA Date(s): 06/22/22 - 06/22/22 [facility] [address] [place] [phone] Discharge Disposition: Home or Self Care Attending Physician: IKE SAEZ MSN,SUPERVISOR AIRCRA[employer] CLEANING-BC Admitting Physician: IKE SAEZ MSN,SUPERVISOR AIRCRA[employer] CLEANING-BC Referring Physician: IKE SAEZ MSN,SUPERVISOR AIRCRAFT CLEANING-BC Allergies, Adverse Reactions, Alerts Substance Reaction Severity [...] vaccine, inactivated 05/23/19 Recorded tetanus/diphth/pertuss (Tdap) adult/adol 11/26/19 Recorded influenza, unspecified formulation 05/23/19 Record ed pneumococcal 13-valent conjugate vaccine 04/02/15 Recorded zoster vaccine live 01/26/11 Recorded pneumococcal 23-polyvalent vaccine 01/26/11 Record ed Medications !-Levaquin 750 mg oral tablet 750 mg = 1 tab, Oral, every 24 hr, # 30 tab, 0 Refill(s), [facility]: [facility], 172.08, cm, 05/15/22 18:25:00 HOUSING CASE MANAGER, Height/Length Dosing, 106.4, kg, 05/15/22 18:25:00 HOUSING CASE MANAGER, Weight Dosing Start Date: 06/17/22 Stop Date: 07/17/22 Status: Ordered aspirin 325 mg oral tablet 325 mg = 1 tab, Oral, Daily, 0 Refill(s) Start Date: 04/22/22 Status: Ordered Contour Next Test Strips Contour Next Test Strips, check blood sugar BID, Supply, See Instructions, # 100 EA, 5 Refill(s), [facility]: [facility] Start Date: 07/01/21 Status: Ordered glipiZIDE 10 mg oral tablet 2 tab, Oral, Daily, # 180 tab, 1 Refill(s), [facility]: [facility], 172.08, cm, 05/15/22 18:25:00 HOUSING CASE MANAGER, Height/Length Dosing, 106.4, kg, 05/15/22 18:25:00 HOUSING CASE MANAGER, Weight Dosing Start Date: 05/28/22 Status: Ordered [...] Instructions, # 1 EA, 0 Refill(s), [facility]: [facility] Start Date: 09/11/21 Status: Ordered metFORMIN 1000 mg oral tablet 1 tab, Oral, BID, 1,000 in the morning nothing to 500 mg at night depending on what his numbers arerunning, # 180 tab, 1 Refill(s), [facility], [facility], cm, 12/03/21 13:07:00 CDT, Height/Length Dosing, 112, kg, 12/03/21 13:07:00 CDT, Weight D... Start Date: 12/23/21 Status: Ordered oxyCODONE 5 mg oral tablet 10 mg = 2 tab, Oral, every 6 hr, PRN pain, moderate, # 12 tab, 0 Refill(s), [facility]: [facility], 172.08, cm, 04/21/22 16:38:00 CDT, Height/Length Dosing, 111.1, kg, 04/21/22 16:38:00 CDT, Weight Dosing Start Date: 04/22/22 Stop Date: 04/25/22 Status: Ordered propranolol 120 mg oral capsule, extended release 1 cap, Oral, Daily, # 90 cap, 1 Refill(s), Pharmacy: [facility], 172, cm, [...] 24 hr, will be recieving through the [facility] Out[facility], # 42 EA, 0 [...] Confirmed Active 1Records from Dr. Riley Diane, [facility] 2Records from Dr. Riley iDane, [facility] 3Records from Dr. Riley Diane, [facility] 4Records from Dr. Riley Diane, [facility] 5Records from Dr. Riley Diane, [facility] Procedures Procedure Date Related Diagnosis [...] sessile polyp Records from Dr. Riley Diane, [facility] 3Records from Dr. Riley Diane, [facility] 4Records from Dr. Riley Diane, [facility] 5Records from Dr. Riley Diane, [facility] Results Laboratory List Name Date Basic Metabolic Panel (BMP) 06/22/22 Most recent to oldest [Reference Range]: 1 BUN [6-20 mg/dL] 31 mg/dL *HI* (06/22/22 9:10 AM) Glucose Level [70-100 mg/dL] 179 mg/dL *HI* (06/22/22 9:10 AM) Potassium Level [3.5-5.5 mmol/L] 4.7 mmo l/L (06/22/22 9:10 AM) Sodium Level [135-150 mmol/L] 136 mmol/L (06/22/22 9:10 AM) Calcium Level [8.4-10.4 mg/dL] 9.8 mg/dL (06/22/22 9:10 AM) CO2 [22-32 mmol/L] 25 mmol/L (06/22/22 9:10 AM) eGFR Non-AA [>=60 mL/min/1.73 m2] 37 mL/ min/1.73 m2 *LOW* (06/22/22 9:10 AM) eGFR AA [>=60 mL/min/1.73 m2] 45 mL/min/ 1.73 m2 *LOW* (06/22/22 9:10 AM) Chloride Level [95-110 mmol/L] 99 mmol/L (06/22/22 9:10 AM) BUN/Creat Ratio [6.0-22.0 ratio] 17.2 ra viri (06/22/22 9:10 AM) Creatinine Level [0.66-1.25 mg/dL] 1.80 mg/dL *HI* (06/22/22 9:10 AM) Anion Gap [3.0-11.0 mmol/L] 12.0 mmol/L *HI* (06/22/22 9:10 AM) Social History Social History Type Response Tobacco Never tobacco user T obacco Use:. Sex Patient Care team information Personnel Name: JARRETT MOHR MSN,SUPERVISOR AIRCRA[employer] CLEANING- Address: Address: [address] [place], [place] [address]
--- OUTSIDE RECORDS SUMMARY | 2023-03-20 19:13 | XMS_ITS | Continuity of Care Document ---
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) - 06/26/22 Diabetes mellitus type II(Discharge Diagnosis) - 06/26/22 Hypertension(Discharge Diagnosis) - 06/26/22 Hyperlipidemia(Discharge Diagnosis) - 06/26/22 Obesity(Discharge Diagnosis) - 06/26/22 Acid reflux(Discharge Diagnosis) - 06/26/22 Discharge Disposition: Home or Self Care Attending Physician: KALEE GUO MSN,[facility] Admitting Physician: ASIYA DONATO MD Referring Physician: ASIYA DONATO MD Allergies, Adverse Reactions, Alerts Substance Reaction Severity Status vancomycin Acute kidney injury due to nephrotoxicity Angioedema Rash Severe Active Assessment and Plan Future Scheduled Tests Laboratory* Basic Metabolic Panel 07/01/22 Functional Status 06/28/22 Current Home Treatments IV therapy Home Equipment [facility] Physical T herapy 06/28/22 Lunch Percent 25 06/28/22 Anti-Embolism Device Activity: Applied Anti-Embolism Site Condition: No complic ations 06/28/22 Breakfast Percent 75 06/27/22 Dinner Percent 40 06/27/22 Activity Status ADL Up ad lenny 06/26/22 Evening Snack Percent 40 06/26/22 Living Situation Home independently Family Member Travel History No recent t ravel Recent Travel History No recent travel Other exposure to Infectious Disease Non e [...] BID, # 8 tab, 0 Refill(s), Pharmacy: [facility], 172.08, cm, 06/26/22 12:11:00 ANESTHESIOLOGIST ASSISTANT, Height/Length Dosing, 109.5, kg, 06/26/22 12:11:00 ANESTHESIOLOGIST ASSISTANT, Weight Dosing Start Date: 06/28/22 Status: Ordered furosemide 40 mg oral tablet 40 mg = 1 tab, Oral, BID, # 30 tab, 0 Refill(s), [facility]: [facility], 172.08, cm, 06/26/22 12:11:00 ANESTHESIOLOGIST ASSISTANT, Height/Length Dosing, 109.5, kg, 06/26/22 12:11:00 ANESTHESIOLOGIST ASSISTANT, Weight Dosing Start Date: 06/28/22 Status: Ordered glipiZIDE 10 mg oral tablet 5 mg = 0.5 tab, Oral, Daily, # 180 tab, 1 Refill(s), [facility]: [facility], 172.08, cm, 05/15/22 18:25:00 ANESTHESIOLOGIST ASSISTANT, Height/Length Dosing, 106.4, kg, 05/15/22 18:25:00 ANESTHESIOLOGIST ASSISTANT, Weight Dosing Start Date: 05/28/22 Status: Ordered irbesartan 300 mg oral tablet 1 tab, Oral, Daily, # 90 tab, 1 Refill(s), [facility]acy: [facility], 172, cm, 12/03/21 13:07:00 CDT, Height/Length Dosing, 112, kg, 12/03/21 13:07:00 CDT, Weight Dosing Start Date: 12/23/21 Status: Ordered Libre2 sensors Libre2 sensors, please dispense 2 sensors with a refill. thanks - patient has a coupon card, Supply, See Instructions, # 1 EA, 0 Refill(s), [facility]acy: [facility] Start Date: 09/11/21 Status: Ordered metFORMIN 1000 mg oral tablet 1 tab, Oral, BID, 1,000 in the morning nothing to 500 mg at night depending on what his numbers arerunning, # 180 tab, 1 Refill(s), [facility]: [facility], 172, cm, 12/03/21 13:07:00 CDT, Height/Length Dosing, 112, kg, 12/03/21 13:07:00 CDT, Weight D... Start Date: 12/23/21 Status: Ordered propranolol 120 mg oral capsule, extended release 1 cap, Oral, Daily, # 90 cap, 1 Refill(s), [facility]acy: [facility], 172, cm, 12/03/21 13:07:00 CDT, Height/Length Dosing, 112, kg, 12/03/21 13:07:00 CDT, Weight Dosing Start Date: 12/23/21 Status: Ordered sildenafil 25 mg oral tablet 25 mg = 1 tab, Oral, Daily, 1 hour before sexual activity, # 10 tab, 0 Refill(s), [facility]acy: [facility] Start Date: 07/01/21 Status: Ordered Tylenol 8 HR Arthritis Pain 650 mg oral tablet, extended release 1,300 mg = 2 tab, Oral, every 8 hr, PRN as needed for pain Start Date: 04/22/22 Status: Ordered Mental Status 06/28/22 Eye Opening Response Patrica Spontaneous ly Best Verbal Response Weirton Oriented Best Motor Response Weirton Obeys comman ds Weirton Coma Score 15 Problem List Condition Confirmation Course Effective Dates Status H ealth Status Informant Arthritis of left knee Confirmed Active Diabetes mellitus type II 1 Confirmed Active Erectile dysfunction Confirmed Active Acid reflux Confirmed Active Gout 2 Confirmed Active Hypertension 3 Confirmed Active Hyperlipidemia 4 Confirmed Active Infection of prosthetic right knee joint Confirmed Active Obesity 5 Confirmed Active Osteoarthritis of right knee joint Confirmed Active Shoulder joint pain Confirmed Active 1Records from Dr. Riley Diane, [facility] 2Records from Dr. Riley Diane, [facility] 3Records from Dr. Riley Diane, [facility] 4Records from Dr. Riley Diane, [facility] 5Records from Dr. Riley Diane, [facility] Procedures Procedure Date Related Diagnosis Body [...] sessile polyp Records from Dr. Riley Diane, [facility] 3Records from Dr. Riley Diane, [facility] 4Records from Dr. Riley Diane, [facility] 5Records from Dr. Riley Diane, [facility] Results Laboratory List Name Date Glucose POCT 06/28/22 Glucose POCT 06/28/22 Automated Diff 06/28/22 Basic Metabolic Panel (BMP) 06/28/22 CBC w/ Diff 06/28/22 Glucose POCT 06/27/22 Automated Diff 06/27/22 Basic Metabolic Panel (BMP) 06/27/22 CBC w/ Diff 06/27/22 Microalbumin/Creatinine Ratio Urine 05/30 Automated Diff 06/26/22 C-Reactive Protein (CRP) 06/26/22 CBC w/ Diff 06/26/22 Comprehensive Metabolic Panel (CMP) 05/30 NT- Pro BNP (BNP, NT Pro) 06/26/22 Most recent to oldest [Reference Range]: 1 2 3 WBC [4.0-10.5 x10^3/mcL] 9.2 x10^3/mcL (06/28/22 5:22 AM) 8.7 x10^3/mcL (06/27/22 5:53 AM) 10.7 x10^3/mcL *HI* (06/26/22 9:28 AM) RBC [4.40-5.80 x10^6/mcL] 4.25 x10^6/mcL *LOW* (06/28/22 5:22 AM) 4.35 x10^6/mcL *LOW* (06/27/22 5:53 AM) 4.28 x10^6/mcL *LOW* (06/26/22 9:28 AM) Neutro Auto [40.0-75.0 %] 47.9 % (06/28/22 5:22 AM) 50.4 % (06/27/22 5:53 AM) 53.8 % (06/26/22 9:28 AM) Lymph Auto [19.0-45.0 %] 22.6 % (06/28/22 5:22 AM) 19.5 % (06/27/22 5:53 AM) 16.7 % *LOW* (06/26/22 9:28 AM) Dupage Auto [1.0-13.0 %] 12.4 % (06/28/22 5:22 AM) 11.3 % (06/27/22 5:53 AM) 10.5 % (06/26/22 9:28 AM) Basophil Auto [0.0-2.0 %] 1.2 % (06/28/22 5:22 AM) 1.5 % (06/27/22 5:53 AM) 1.3 % (06/26/22 9:28 AM) BUN [6-20 mg/dL] 36 mg/dL *HI* (06/28/22 5:22 AM) 30 mg/dL *HI* (06/27/22 5:53 AM) 28 mg/dL *HI* (06/26/22 9:28 AM) Glucose POC [70-100 mg/dL] 226 mg/dL *HI* (06/28/22 11:12 AM) 105 mg/dL *HI* (06/28/22 7:12 AM) 148 mg/dL *HI* (06/27/22 8:36 PM) Glucose Level [70-100 mg/dL] 102 mg/dL *HI* (06/28/22 5:22 AM) 94 mg/dL (06/27/22 5:53 AM) 207 mg/dL *HI* (06/26/22 9:28 AM) Potassium Level [3.5-5.5 mmol/L] 3.7 mmol/L (06/28/22 5:22 AM) 4.1 mmol/L (06/27/22 5:53 AM) 4.8 mmol/L (06/26/22 9:28 AM) Baso Absolute [0.00-0.20 x10^3/mcL] 0.11 x10^3/mcL (06/28/22 5:22 AM) 0.13 x10^3/mcL (06/27/22 5:53 AM) 0.14 x10^3/mcL (06/26/22 9:28 AM) MCV [78-100 fL] 89 fL (06/28/22 5:22 AM) 90 fL (06/27/22 5:53 AM) 92 fL (06/26/22 9:28 AM) CRP [0.0-5.0 mg/L] 15.8 mg/L *HI* (06/26/22 9:28 AM) AST [0-41 unit/L] 27 unit/L (06/26/22 9:28 AM) ALT [6-45 unit/L] 31 unit/L (06/26/22 9:28 AM) MCHC [31.0-36.0 %] 33.5 % (06/28/22 5:22 AM) 32.4 % (06/27/22 5:53 AM) 32.0 % (06/26/22 9:28 AM) Sodium Level [135-150 mmol/L] 136 mmol/L (06/28/22 5:22 AM) 137 mmol/L (06/27/22 5:53 AM) 137 mmol/L (06/26/22 9:28 AM) Lymph Absolute [1.09-3.58 x10^3/mcL] 2.08 x10^3/mcL (06/28/22 5:22 AM) 1.69 x10^3/mcL (06/27/22 5:53 AM) 1.79 x10^3/mcL (06/26/22 9:28 AM) Hct [41.0-51.0 %] 37.9 % *LOW* (06/28/22 5:22 AM) 39.2 % *LOW* (06/27/22 5:53 AM) 39.4 % *LOW* (06/26/22 9:28 AM) Calcium Level [8.4-10.4 mg/dL] 8.7 mg/dL (06/28/22 5:22 AM) 9.1 mg/dL (06/27/22 5:53 AM) 9.1 mg/dL (06/26/22 9:28 AM) Dupage Absolute [0.20-9.50 x10^3/mcL] 1.14 x10^3/mcL (06/28/22 5:22 AM) 0.98 x10^3/mcL (06/27/22 5:53 AM) 1.13 x10^3/mcL (06/26/22 9:28 AM) Albumin Level [3.5-5.2 g/dL] 3.6 g/dL (06/26/22 9:28 AM) Protein Total [5.9-8.4 g/dL] 5.4 g/dL *LOW* (06/26/22 9:28 AM) MCH [26.0-33.0 pg] 29.9 pg (06/28/22 5:22 AM) 29.2 pg (06/27/22 5:53 AM) 29.4 pg (06/26/22 9:28 AM) Neutro Absolute [1.54-7.22 x10^3/mcL] 4.39 x10^3/mcL (06/28/22 5:22 AM) 4.37 x10^3/mcL (06/27/22 5:53 AM) 5.77 x10^3/mcL (06/26/22 9:28 AM) Bilirubin Total [0.2-1.2 mg/dL] 0.6 mg/dL (06/26/22 9:28 AM) Hgb [13.5-17.0 g/dL] 12.7 g/dL *LOW* (06/28/22 5:22 AM) 12.7 g/dL *LOW* (06/27/22 5:53 AM) 12.6 g/dL *LOW* (06/26/22 9:28 AM) Alk Phos [40-150 unit/L] 31 unit/L *LOW* (06/26/22 9:28 AM) MPV 10 *NA* (06/28/22 5:22 AM) 10 *NA* (06/27/22 5:53 AM) 10 *NA* (06/26/22 9:28 AM) Platelets [130-400 x10^3/mcL] 210 x10^3/mcL (06/28/22 5:22 AM) 163 x10^3/mcL (06/27/22 5:53 AM) 249 x10^3/mcL (06/26/22 9:28 AM) CO2 [22-32 mmol/L] 37 mmol/L *HI* (06/28/22:22 AM) 35 mmol/L *HI* (06/27/22 5:53 AM) 32 mmol/L (06/26/22 9:28 AM) Eos Absolute [0.15-0.50 x10^3/mcL] 1.30 x10^3/mcL *HI* (06/28/22 5:22 AM) 1.30 x10^3/mcL *HI* (06/27/22 5:53 AM) 1.68 x10^3/mcL *HI* (06/26/22 9:28 AM) eGFR Non-AA [>=60 mL/min/1.73 m2] 33 mL/min/1.73 m2 *LOW* (06/28/22 5:22 AM) 33 mL/min/1.73 m2 *LOW* (06/27/22 5:53 AM) 35 mL/min/1.73 m2 *LOW* (06/26/22 9:28 AM) eGFR AA [>=60 mL/min/1.73 m2] 40 mL/min/1.73 m2 *LOW* (06/28/22 5:22 AM) 40 mL/min/1.73 m2 *LOW* (06/27/22 5:53 AM) 42 mL/min/1.73 m2 *LOW* (06/26/22 9:28 AM) U Creatinine 71.8 mg/dL *NA* (06/26/22 9:35 AM) NT-proBNP [0-300 pg/mL] 411 pg/mL *HI* (06/26/22 9:28 AM) Chloride Level [95-110 mmol/L] 90 mmol/L *LOW* (06/28/22:22 AM) 93 mmol/L *LOW* (06/27/22:53 AM) 95 mmol/L (06/26/22 9:28 AM) RDW-CV [11.0-15.0 %] 14.0 % (06/28/22:22 AM) 14.1 % (06/27/22 5:53 AM) 14.3 % (06/26/22 9:28 AM) A/G Ratio [1.0-2.5 ratio] 2.0 ratio (06/26/22 9:28 AM) BUN/Creat Ratio [6.0-22.0 ratio] 18.0 ratio (06/28/22:22 AM) 15.0 ratio (06/27/22 5:53 AM) 14.7 ratio (06/26/22 9:28 AM) Globulin [1.5-3.7 g/dL] 1.8 g/dL (06/26/22 9:28 AM) U Microalb/Creat [<=21.0 mg/g Cr] <8.4 mg/g Cr (06/26/22 9:35 AM) U Microalb [<=24.0 mg/L] <6.0 mg/L (06/26/22 9:35 AM) Imm Gran Absolute [0.00-0.09 x10^3/mcL] 0.17 x10^3/mcL *HI* (06/28/22 5:22 AM) 0.20 x10^3/mcL *HI* (06/27/22 5:53 AM) 0.23 x10^3/mcL *HI* (06/26/22 9:28 AM) Imm Gran Auto [0.00-5.00 %] 1.80 % (06/28/22:22 AM) 2.30 % (06/27/22 5:53 AM) 2.10 % (06/26/22 9:28 AM) NRBC Auto [0.0-1.0 /100 WBC] 0.0 /100 WBC (06/28/22 5:22 AM) 0.0 /100 WBC (06/27/22 5:53 AM) 0.0 /100 WBC (06/26/22 9:28 AM) NRBC Absolute 0.00 x10^3/mcL *NA* (06/28/22 5:22 AM) 0.00 x10^3/mcL *NA* (06/27/22 5:53 AM) 0.00 x10^3/mcL *NA* (06/26/22 9:28 AM) Creatinine Level [0.66-1.25 mg/dL] 2.00 mg/dL *HI* (06/28/22 5:22 AM) 2.00 mg/dL *HI* (06/27/22 5:53 AM) 1.90 mg/dL *HI* (06/26/22 9:28 AM) Anion Gap [3.0-11.0 mmol/L] 9.0 mmol/L (06/28/22 5:22 AM) 9.0 mmol/L (06/27/22 5:53 AM) 10.0 mmol/L (06/26/22 9:28 AM) Eos, Auto [0.0-7.0 %] 14.1 % *HI* (06/28/22 5:22 AM) 15.0 % *HI* (06/27/22 5:53 AM) 15.6 % *HI* (06/26/22 9:28 AM) Vital Signs Most recent to oldest [Reference Range]: 1 2 3 Temperature Oral [35.8-37.3 Deg C] 36.7 Deg C (06/28/22 11:09 AM) 36.8 Deg C (06/28/22 7:46 AM) 36.8 Deg C (06/28/22 5:29 AM) Temperature Oral (DegF) [96.4-99.1 Deg F] 98.06 Deg F (06/28/22 11:09 AM) 98.24 Deg F (06/28/22 7:46 AM) 98.24 Deg F (06/28/22 5:29 AM) Apical Heart Rate [60-100 bpm] 82 bpm (06/28/22 7:46 AM) Peripheral Pulse Rate [60-100 bpm] 79 bpm (06/28/22 11:16 AM) 86 bpm (06/28/22 8:11 AM) 70 bpm (06/27/22 11:17 AM) Heart Rate Monitored [60-100 bpm] 79 bpm (06/28/22 11:16 AM) 86 bpm (06/28/22 8:11 AM) 78 bpm (06/28/22 5:29 AM) Respiratory Rate [12-24 br/min] 20 br/min (06/28/22 5:29 AM) 20 br/min (06/28/22 12:18 AM) 20 br/min (06/27/22 7:08 PM) Blood Pressure [90-140/60-90 mmHg] 124/72mmHg (06/28/22 11:09 AM) 120/78mmHg (06/28/22 7:46 AM) 147/69mmHg *HI* (06/28/22 5:29 AM) Mean Arterial Pressure, Cuff [65-140 mmHg] 89 mmHg (06/28/22 11:09 AM) 92 mmHg (06/28/22 7:46 AM) 95 mmHg (06/28/22 5:29 AM) Mean Arterial Pressure Cuff 89 mmHg (06/28/22 11:09 AM) 92 mmHg (06/28/22 7:46 AM) 91 mmHg (06/27/22 11:17 AM) Blood Pressure Location Right arm (06/28/22 5:29 AM) Right arm (06/28/22 12:18 AM) Right arm (06/27/22 7:08 PM) Blood Pressure Method Automatic (06/28/22 5:29 AM) Automatic (06/28/22 12:18 AM) Automatic (06/27/22 7:08 PM) Patient Position BP Sitting (06/26/22 12:27 PM) Weight 104.3 kg (06/28/22 5:29 AM) 105.9 kg (06/27/22 4:23 AM) 109.5 kg (06/26/22 12:17 PM) Weight Measured (lbs) 229.942 lb (06/28/22 5:29 AM) 233.469 lb (06/27/22 4:23 AM) 241.406 lb (06/26/22 12:17 PM) Weight Dosing 109.5 kg (06/26/22 12:11 PM) Usual Weight 103.8 kg (06/26/22 12:17 PM) Height 172.080 cm (06/28/22 12:23 PM) 172.080 cm (06/26/22 12:11 PM) Height/Length Dosing 172.080 cm (06/28/22 12:23 PM) 172.08 cm (06/26/22 12:11 PM) 172.080 cm (06/26/22 12:11 PM) BSA Estimated 0 m2 (06/26/22 12:11 PM) Social History Social History Type Response Tobacco Never tobacco user T obacco Use:. Sex Hospital Discharge Instructions Patient Education 06/28/2022 11:07:26 Form - Daily Weight Record Daily Weight Record It is important to weigh yourself daily. To do this: ??? Make sure you use a reliable scale. Use the same scale each day. ??? Keep this daily weight chart near your scale. ??? Weigh yourself each morning at the same time after you use the bathroom. ??? Before weighing yourself: ??? Take off your shoes. ??? Make sure you are wearing the same amount of clothing each day. ??? Write down your weight in the spaces on the form. ??? Compare today's weight to yesterday's weight. ??? Bring this form with you to your follow-up visits with your health care provider. Call your health care provider if you have concerns about your weight, including rapid weight gain or loss. Date: Weight: Date: Weight: Date: Weight: Date: Weight: Date: Weight: Date: Weight: Date: Weight: Date: Weight: Date: Weight: Date: Weight: Date: Weight: Date: Weight: Date: Weight: Date: Weight: Date: Weight: Date: Weight: Date: Weight: Date: Weight: Date: Weight: Date: Weight: Date: Weight: Date: Weight: Date: Weight: Date: Weight: Date: Weight: Date: Weight: Date: Weight: Date: Weight: Date: Weight: Date: Weight: Date: Weight: Date: Weight: Date: Weight: Date: Weight: Date: Weight: Date: Weight: Date: Weight: Date: Weight: Date: Weight: Date: Weight: Date: Weight: Date: Weight: Date: Weight: Date: Weight: Date: Weight: Date: Weight: Date: Weight: Date: Weight: Date: Weight: Date: Weight: This information is not intended to replace advice given to you by your health care provider. Make sure you discuss any questions you have with your health care provider. Document Revised: 05/29/2021 Document Reviewed: 05/29/2021 [employer] Patient Education ?? 2021 [employer] 06/28/2022 11:07:12 Heart Failure, Diagnosis, [id number] Heart Failure, Diagnosis Heart failure means that your heart is not able to pump blood in the right way. This makes it hard for your body to work well. Heart failure is usually a long- term (chronic) condition. You must take good care of yourself and follow your treatment plan from your doctor. What are the causes? High blood pressure. ??? Buildup of cholesterol and fat in the arteries. ??? Heart attack. This injures the heart muscle. ??? Heart valves that do not open and close properly. ??? Damage of the heart muscle. This is also called cardiomyopathy. ??? Infection of the heart muscle. This is also called myocarditis. ??? Lung disease. What increases the risk? Getting older. The risk of heart failure goes up as a person ages. ??? Being overweight. ??? Being male. ??? Use tobacco or nicotine products. ??? Abusing alcohol or drugs. ??? Having taken medicines that can damage the heart. ??? Having any of these conditions: ??? Diabetes. ??? Abnormal heart rhythms. ??? Thyroid problems. ??? Low blood counts (anemia). ??? Having a family history of heart failure. What are the signs or symptoms? Shortness of breath. ??? Coughing. ??? Swelling of the feet, ankles, legs, or belly. ??? Losing or gaining weight for no reason. ??? Trouble breathing. ??? Waking from sleep because of the need to sit up and get more air. ??? Fast heartbeat. ??? Being very tired. ??? Feeling dizzy, or feeling like you may pass out (faint). ??? Having no desire to eat. ??? Feeling like you may vomit (nauseous). ??? Peeing (urinating) more at night. ??? Feeling confused. How is this treated? This condition may be treated with: ??? Medicines. These can be given to treat blood pressure and to make the heart muscles stronger. ??? Changes in your daily life. These may include: ??? Eating a healthy diet. ??? Staying at a healthy body weight. ??? Quitting tobacco, alcohol, and drug use. ??? Doing exercises. ??? Participating in a cardiac rehabilitation program. This program helps you improve your health through exercise, education, and counseling. ??? Surgery. Surgery can be done to open blocked valves, or to put devices in the heart, such as pacemakers. ??? A donor heart (heart transplant). You will receive a healthy heart from a donor. Follow these instructions at home: ??? Treat other conditions as told by your doctor. These may include high blood pressure, diabetes,thyroid disease, or abnormal heart rhythms. ??? Learn as much as you can about heart failure. ??? Get support as you need it. ??? Keep all follow-up visits. Summary ??? Heart failure means that your heart is not able to pump blood in the right way. ??? This condition is often caused by high blood pressure, heart attack, or damage of the heart muscle. ??? Symptoms of this condition include shortness of breath and swelling of the feet, ankles, legs, or belly. You may also feel very tired or feel like you may vomit. ??? You may be treated with medicines, surgery, or changes in your daily life. ??? Treat other health conditions as told by your doctor. This information is not intended to replace advice given to you by your health care provider. Make sure you discuss any questions you have with your health care provider. Document Revised: 01/04/2021 Document Reviewed: 01/04/2021 [employer] Patient Education ?? 2021 [employer]. 06/28/2022 10:36:23 Acute Kidney Injury, Adult Acute Kidney Injury, Adult Acute kidney injury is a sudden worsening of kidney function. The kidneys are organs that have several jobs. They filter the blood to remove waste products and extra fluid. They also maintain a healthy balance of minerals and hormones in the body, which helps control blood pressure and keep bones strong. With this condition, your kidneys do not do their jobs as well as they should. This condition ranges from mild to severe. Over time, it may develop into long- lasting (chronic) kidney disease. Early detection and treatment may prevent acute kidney injury from developing into a chronic condition. What are the causes? Common causes of this condition include: ??? A problem with blood flow to the kidneys. This may be caused by: ??? Low blood pressure (hypotension) or shock. ??? Blood loss. ??? Heart and blood vessel (cardiovascular) disease. ??? Severe mercer. ??? Liver disease. ??? Direct damage to the kidneys. This may be caused by: ??? Certain medicines. ??? A kidney infection. ??? Poisoning. ??? Being around or in contact with toxic substances. ??? A surgical wound. ??? A hard, direct hit to the kidney area. ??? A sudden blockage of urine flow. This may be caused by: ??? Cancer. ??? Kidney stones. ??? An enlarged prostate in males. What increases the risk? You are more likely to develop this condition if you: ??? Are older than age 65. ??? Are female. ??? Are hospitalized, especially if you are in critical condition. ??? Have certain conditions, such as: ??? Chronic kidney disease. ??? Diabetes. ??? Coronary artery disease and heart failure. ??? Pulmonary disease. ??? Chronic liver disease. What are the signs or symptoms? Symptoms of this condition may not be obvious until the condition becomes severe. Symptoms of this condition can include: ??? Tiredness (lethargy) or difficulty staying awake. ??? Nausea or vomiting. ??? Swelling (edema) of the face, legs, ankles, or feet. ??? Problems with urination, such as: ??? Pain in the abdomen, or pain along the side of your stomach (flank). ??? Producing little or no urine. ??? Passing urine with a weak flow. ??? Muscle twitches and cramps, especially in the legs. ??? Confusion or trouble concentrating. ??? Loss of appetite. ??? Fever. How is this diagnosed? Your health care provider can diagnose this condition based on your symptoms, medical history, and a physical exam. You may also have other tests, such as: ??? Blood tests. ??? Urine tests. ??? Imaging tests. ??? A test in which a sample of tissue is removed from the kidneys to be examined under a microscope (kidney biopsy). How is this treated? Treatment for this condition depends on the cause and how severe the condition is. In mild cases, treatment may not be needed. The kidneys may heal on their own. In more severe cases, treatment will involve: ??? Treating the cause of the kidney injury. This may involve changing any medicines you are takingor adjusting your dosage. ??? Fluids. You may need specialized IV fluids to balance your body's needs. ??? Having a catheter placed to drain urine and prevent blockages. ??? Preventing problems from occurring. This may mean avoiding certain medicines or procedures thatcan cause further injury to the kidneys. In some cases, treatment may also require: ??? A procedure to remove toxic wastes from the body (dialysis or continuous renal replacement therapy, CRRT). ??? Surgery. This may be done to repair a torn kidney or to remove the blockage from the urinary system. Follow these instructions at home: Medicines ??? Take [id number] and prescription medicines only as told by your health care provider. ??? Do not take any new medicines without your health care provider's approval. Many medicines can worsen your kidney damage. ??? Do not take any vitamin and mineral supplements without your health care provider's approval. Many nutritional supplements can worsen your kidney damage. Lifestyle ??? If your health care provider prescribed changes to your diet, follow them. You may need to decrease the amount of protein you eat. ??? Achieve and maintain a healthy weight. If you need help with this, ask your health care provider. ??? Start or continue an exercise plan. Try to exercise at least 30 minutes a day, 5 days a week. ??? Do not use any products that contain nicotine or tobacco, such as cigarettes, e-cigarettes, andchewing tobacco. If you need help quitting, ask your health care provider. General instructions ??? Keep track of your blood pressure. Report changes in your blood pressure as told by your healthcare provider. ??? Stay up to date with your vaccines. Ask your health care provider which vaccines you need. ??? Keep all follow-up visits as told by your health care provider. This is important. Where to find more information ??? [place] [employer]: www.aakp.org ??? National Kidney Foundation: www.kidney.org ??? [place] [employer]: www.akfinc.org ??? [employer] [facility]: ??? www.lifeoptions.org ??? www.kidneyschool.org Contact a health care provider if: ??? Your symptoms get worse. ??? You develop new symptoms. Get help right away if: ??? You develop symptoms of worsening kidney disease, which include: ??? Headaches. ??? Abnormally dark or light skin. ??? Easy bruising. ??? Frequent hiccups. ??? Chest pain. ??? Shortness of breath. ??? End of menstruation in women. ??? Seizures. ??? Confusion or altered mental status. ??? Abdominal or back pain. ??? Itchiness. ??? You have a fever. ??? Your body is producing less urine. ??? You have pain or bleeding when you urinate. Summary ??? Acute kidney injury is a sudden worsening of kidney function. ??? Acute kidney injury can be caused by problems with blood flow to the kidneys, direct damage to the kidneys, and sudden blockage of urine flow. ??? Symptoms of this condition may not be obvious until it becomes severe. Symptoms may include edema, lethargy, confusion, nausea or vomiting, and problems passing urine. ??? This condition can be diagnosed with blood tests, urine tests, and imaging tests. Sometimes a kidney biopsy is done to diagnose this condition. ??? Treatment for this condition often involves treating the underlying cause. It is treated with fluids, medicines, diet changes, dialysis, or surgery. This information is not intended to replace advice given to you by your health care provider. Make sure you discuss any questions you have with your health care provider. Document Revised: 04/23/2020 Document Reviewed: 04/23/2020 [employer] In Patient Education ?? 2021 [employer]. Follow Up Care 06/24/2022 11:13:33 With:JARRETT MOHR,FINANCIAL REPRESENTATIVE- Address: [address] [place] [address]- When:3 to 5 days Comments:Please call Friday 06/30 to make your follow-up appointment with Jarrett Mohr Discharge instructions * RADHA WILLS,RN: PERFORM Event Display: Discharge Instructions Authored Date: [id number] SILVIO MOYER :1945 Age:77 years Sex:Male Visit Date:06/26/2022 Primary Care Physician: JARRETT MOHR MSN,FINANCIAL REPRESENTATIVE-BC Hospital Discharge Instructions We would like to thank you for allowing us to assist you with your healthcare needs. The following includes patient education materials and information regarding your injury/illness. After you leave the hospital, you may get your health information including your test results, physician notes and discharge information by accessing your Patient Portal. Your Next Steps Discharge Orders Discharge Activity Restrictions, Activity as tolerated. Discharge Diet Instruction, Regular home diet Discharge Patient Instructions, Contact the doctor if: Fever, chills, chest pain, abdominal pain, nausea vomiting or diarrhea, black or bloody stools, shortness of breath, fainting or near fainting, mental status changes, falls or with any questions Discharge Patient Instructions, Intersperse periods of rest with periods of walking and activity. Monitor bowel and bladder elimination pattern. Keep stools soft and regular. May use [id number] /stool softener as needed per package directions. Discharge Patient Instructions, Use Tylenol as needed for pain. Discharge Patient Instructions, Furosemide 40mg twice daily until seen in follow up next week. Continue to wear compression stockings, on during day, off at night. Elevate LE when sitting. Discharge Respiratory Care, Monitor respiratory status. Contact provider or seek medical attention if shortness of breath or difficulty breathing. Continue use of incentive spirometer 4-6 times a dayfor one week. 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 Record weight daily Follow Up Appointments Follow Up with??JARRETT MOHR MSN,FINANCIAL REPRESENTATIVE- When:??Within 3 to 5 days Why: Please call Friday 06/30 to make your follow-up appointment with Jarrett Mohr Where: [address] [place] [address]- Future Orders Basic Metabolic Panel, Blood, Routine, *Est. 07/01/22 +/- 2 days, Once, Lab Collect, Acute kidney injury, Order for future visit, JARRETT MOHR MSN,FINANCIAL REPRESENTATIVE- The Following Equipment Has Been Ordered for You Home Equipment - Walker Medications What How Much When Why Instructions Next Dose New furosemide (furosemide 20 mg oral tablet) 2 tab Oral (given by mouth) 2 times a day Pickup at [facility] use until able to get script from [facility] 06/28 2PM New furosemide (furosemide 40 mg oral tablet) 1 tab Oral (given by mouth) 2 times a day Pickup at [facility] Drug when open on Friday 06/30 Unchanged acetaminophen (Tylenol 8 HR Arthritis Pain 650 mg oral tablet, extended release) 2 tab Oral (given by mouth) Every 8 hours as needed for as needed for pain any time Unchanged Durable Medical Equipment for Prescription (Contour Next Test Strips) See instructions Diabetes mellitus type II check blood sugar BID ?? as per home Unchanged Durable Medical Equipment for Prescription (Libre2 sensors) See instructions please dispense 2 sensors with a refill. thanks - patient has a coupon card ?? Unchanged glipiZIDE (glipiZIDE 10 mg oral tablet) 0.5 tab Oral (given by mouth) Every day / noon Unchanged irbesartan (irbesartan 300 mg oral tablet) 1 tab Oral (given by mouth) Every day 1/2 AM Unchanged metFORMIN (metFORMIN 1000 mg oral tablet) 1 tab Oral (given by mouth) 2 times a day 1,000 in the morning nothing to 500 mg at night depending on what his numbers are running ?? 06/28 6PM as per home Unchanged propranolol (propranolol 120 mg oral capsule, extended release) 1 Capsules Oral (given by mouth) Every day 1/2 AM Unchanged sildenafil (sildenafil 25 mg oral tablet) 1 tab Oral (given by mouth) Every day 1 hour before sexual activity ?? as needed Pharmacy Information [facility]: [address], [place] [id number] [phone] [facility] [address], [place] [id number] [phone] Your Summary Your Care Team Admitting Physician - ASIYA DONATO MD Attending Physician - KALEE GUO MSN,FINANCIAL REPRESENTATIVE-BC Primary Care Physician - JARRETT MOHR MSN,[facility]-BC Referring Physician - ASIYA DONATO MD Your Diagnosis Acute kidney injury Infection of prosthetic right knee joint Diabetes mellitus type II Hypertension Hyperlipidemia Obesity Acid reflux Immunizations This Visit Influenza Vaccine Not Given because??Influenza vaccine received already this season. Allergies vancomycin??(Acute kidney injury due to nephrotoxicity, Angioedema, Rash) Education Materials Daily Weight Record It is important to weigh yourself daily. To do this: ? Make sure you use a reliable scale. Use the same scale each day. ? Keep this daily weight chart near your scale. ? Weigh yourself each morning at the same time after you use the bathroom. ? Before weighing yourself: ? Take off your shoes. ? Make sure you are wearing the same amount of clothing each day. ? Write down your weight in the spaces on the form. ? Compare today's weight to yesterday's weight. ? Bring this form with you to your follow-up visits with your health care provider. Call your health care provider if you have concerns about your weight, including rapid weight gain or loss. Date: Weight: Date: Weight: Date: Weight: Date: Weight: Date: Weight: Date: Weight: Date: Weight: Date: Weight: Date: Weight: Date: Weight: Date: Weight: Date: Weight: Date: Weight: Date: Weight: Date: Weight: Date: Weight: Date: Weight: Date: Weight: Date: Weight: Date: Weight: Date: Weight: Date: Weight: Date: Weight: Date: Weight: Date: Weight: Date: Weight: Date: Weight: Date: Weight: Date: Weight: Date: Weight: Date: Weight: Date: Weight: Date: Weight: Date: Weight: Date: Weight: Date: Weight: Date: Weight: Date: Weight: Date: Weight: Date: Weight: Date: Weight: Date: Weight: Date: Weight: Date: Weight: Date: Weight: Date: Weight: Date: Weight: Date: Weight: Date: Weight: Date: Weight: This information is not intended to replace advice given to you by your health care provider. Make sure you discuss any questions you have with your health care provider. Document Revised: 05/29/2021 Document Reviewed: 05/29/2021 Elsevier Patient Education ?? 2021 [employer] Heart Failure, Diagnosis Heart failure means that your heart is not able to pump blood in the right way. This makes it hard for your body to work well. Heart failure is usually a long- term (chronic) condition. You must take good care of yourself and follow your treatment plan from your doctor. What are the causes? High blood pressure. ? Buildup of cholesterol and fat in the arteries. ? Heart attack. This injures the heart muscle. ? Heart valves that do not open and close properly. ? Damage of the heart muscle. This is also called cardiomyopathy. ? Infection of the heart muscle. This is also called myocarditis. ? Lung disease. What increases the risk? Getting older. The risk of heart failure goes up as a person ages. ? Being overweight. ? Being male. ? Use tobacco or nicotine products. ? Abusing alcohol or drugs. ? Having taken medicines that can damage the heart. ? Having any of these conditions: ? Diabetes. ? Abnormal heart rhythms. ? Thyroid problems. ? Low blood counts (anemia). ? Having a family history of heart failure. What are the signs or symptoms? Shortness of breath. ? Coughing. ? Swelling of the feet, ankles, legs, or belly. ? Losing or gaining weight for no reason. ? Trouble breathing. ? Waking from sleep because of the need to sit up and get more air. ? Fast heartbeat. ? Being very tired. ? Feeling dizzy, or feeling like you may pass out (faint). ? Having no desire to eat. ? Feeling like you may vomit (nauseous). ? Peeing (urinating) more at night. ? Feeling confused. How is this treated? This condition may be treated with: ? Medicines. These can be given to treat blood pressure and to make the heart muscles stronger. ? Changes in your daily life. These may include: ? Eating a healthy diet. ? Staying at a healthy body weight. ? Quitting tobacco, alcohol, and drug use. ? Doing exercises. ? Participating in a cardiac rehabilitation program. This program helps you improve your health through exercise, education, and counseling. ? Surgery. Surgery can be done to open blocked valves, or to put devices in the heart, such as pacemakers. ? A donor heart (heart transplant). You will receive a healthy heart from a donor. Follow these instructions at home: ? Treat other conditions as told by your doctor. These may include high blood pressure, diabetes, thyroid disease, or abnormal heart rhythms. ? Learn as much as you can about heart failure. ? Get support as you need it. ? Keep all follow-up visits. Summary ? Heart failure means that your heart is not able to pump blood in the right way. ? This condition is often caused by high blood pressure, heart attack, or damage of the heart muscle. ? Symptoms of this condition include shortness of breath and swelling of the feet, ankles, legs, or belly. You may also feel very tired or feel like you may vomit. ? You may be treated with medicines, surgery, or changes in your daily life. ? Treat other health conditions as told by your doctor. This information is not intended to replace advice given to you by your health care provider. Make sure you discuss any questions you have with your health care provider. Document Revised: 01/04/2021 Document Reviewed: 01/04/2021 [employer] In Patient Education ?? 2021 [employer] Acute Kidney Injury, Adult Acute kidney injury is a sudden worsening of kidney function. The kidneys are organs that have several jobs. They filter the blood to remove waste products and extra fluid. They also maintain a healthy balance of minerals and hormones in the body, which helps control blood pressure and keep bones strong. With this condition, your kidneys do not do their jobs as well as they should. This condition ranges from mild to severe. Over time, it may develop into long- lasting (chronic) kidney disease. Early detection and treatment may prevent acute kidney injury from developing into a chronic condition. What are the causes? Common causes of this condition include: ? A problem with blood flow to the kidneys. This may be caused by: ? Low blood pressure (hypotension) or shock. ? Blood loss. ? Heart and blood vessel (cardiovascular) disease. ? Severe mercer. ? Liver disease. ? Direct damage to the kidneys. This may be caused by: ? Certain medicines. ? A kidney infection. ? Poisoning. ? Being around or in contact with toxic substances. ? A surgical wound. ? A hard, direct hit to the kidney area. ? A sudden blockage of urine flow. This may be caused by: ? Cancer. ? Kidney stones. ? An enlarged prostate in males. What increases the risk? You are more likely to develop this condition if you: ? Are older than age 65. ? Are female. ? Are hospitalized, especially if you are in critical condition. ? Have certain conditions, such as: ? Chronic kidney disease. ? Diabetes. ? Coronary artery disease and heart failure. ? Pulmonary disease. ? Chronic liver disease. What are the signs or symptoms? Symptoms of this condition may not be obvious until the condition becomes severe. Symptoms of this condition can include: ? Tiredness (lethargy) or difficulty staying awake. ? Nausea or vomiting. ? Swelling (edema) of the face, legs, ankles, or feet. ? Problems with urination, such as: ? Pain in the abdomen, or pain along the side of your stomach (flank). ? Producing little or no urine. ? Passing urine with a weak flow. ? Muscle twitches and cramps, especially in the legs. ? Confusion or trouble concentrating. ? Loss of appetite. ? Fever. How is this diagnosed? Your health care provider can diagnose this condition based on your symptoms, medical history, and a physical exam. You may also have other tests, such as: ? Blood tests. ? Urine tests. ? Imaging tests. ? A test in which a sample of tissue is removed from the kidneys to be examined under a microscope (kidney biopsy). How is this treated? Treatment for this condition depends on the cause and how severe the condition is. In mild cases, treatment may not be needed. The kidneys may heal on their own. In more severe cases, treatment will involve: ? Treating the cause of the kidney injury. This may involve changing any medicines you are taking or adjusting your dosage. ? Fluids. You may need specialized IV fluids to balance your body's needs. ? Having a catheter placed to drain urine and prevent blockages. ? Preventing problems from occurring. This may mean avoiding certain medicines or procedures that cancause further injury to the kidneys. In some cases, treatment may also require: ? A procedure to remove toxic wastes from the body (dialysis or continuous renal replacement therapy,CRRT). ? Surgery. This may be done to repair a torn kidney or to remove the blockage from the urinary system. Follow these instructions at home: Medicines ? Take qmsw-bff-ekosmfm and prescription medicines only as told by your health care provider. ? Do not take any new medicines without your health care provider's approval. Many medicines can worsen your kidney damage. ? Do not take any vitamin and mineral supplements without your health care provider's approval. Many nutritional supplements can worsen your kidney damage. Lifestyle ? If your health care provider prescribed changes to your diet, follow them. You may need to decreasethe amount of protein you eat. ? Achieve and maintain a healthy weight. If you need help with this, ask your health care provider. ? Start or continue an exercise plan. Try to exercise at least 30 minutes a day, 5 days a week. ? Do not use any products that contain nicotine or tobacco, such as cigarettes, e- cigarettes, and chewing tobacco. If you need help quitting, ask your health care provider. General instructions ? Keep track of your blood pressure. Report changes in your blood pressure as told by your health care provider. ? Stay up to date with your vaccines. Ask your health care provider which vaccines you need. ? Keep all follow-up visits as told by your health care provider. This is important. Where to find more information ? [place] [employer]: www.aakp.org ? National Kidney Foundation: www.kidney.org ? [place] [employer]: www.akfinc.org ? [employer] [facility]: ? www.lifeoptions.org ? www.kidneyschool.org Contact a health care provider if: ? Your symptoms get worse. ? You develop new symptoms. Get help right away if: ? You develop symptoms of worsening kidney disease, which include: ? Headaches. ? Abnormally dark or light skin. ? Easy bruising. ? Frequent hiccups. ? Chest pain. ? Shortness of breath. ? End of menstruation in women. ? Seizures. ? Confusion or altered mental status. ? Abdominal or back pain. ? Itchiness. ? You have a fever. ? Your body is producing less urine. ? You have pain or bleeding when you urinate. Summary ? Acute kidney injury is a sudden worsening of kidney function. ? Acute kidney injury can be caused by problems with blood flow to the kidneys, direct damage to the kidneys, and sudden blockage of urine flow. ? Symptoms of this condition may not be obvious until it becomes severe. Symptoms may include edema, lethargy, confusion, nausea or vomiting, and problems passing urine. ? This condition can be diagnosed with blood tests, urine tests, and imaging tests. Sometimes a kidney biopsy is done to diagnose this condition. ? Treatment for this condition often involves treating the underlying cause. It is treated with fluids, medicines, diet changes, dialysis, or surgery. This information is not intended to replace advice given to you by your health care provider. Make sure you discuss any questions you have with your health care provider. Document Revised: 04/23/2020 Document Reviewed: 04/23/2020 [employer] In Patient Education ?? 2021 [employer] Medication Information furosemide (oral/injection)?? (fur [place] se mide) ?? Lasix?What is the most important information I should know about furosemide?You should not use this medicine if you are unable to urinate. ?Do not take more than your recommended dose. ??High doses of furosemide may cause irreversible hearing loss.?What is furosemide?Furosemide is a loop diuretic (water pill) that prevents your body from absorbing too much salt. ??This allows the salt to instead be passed in your urine. ?Furosemide is used to treat fluid retention (edema) in people with congestive heart failure, liver disease, or a kidney disorder such as nephrotic syndrome. ?Furosemide is also used to treat high blood pressure (hypertension). ?Furosemide may also be used for purposes not listed in this medication guide. ?What should I discuss with my healthcare provider before taking furosemide?You should not use furosemide if you are allergic to it, or if you are unable to urinate. ?Tell your doctor if you have ever had: ?kidney disease; ?enlarged prostate, bladder obstruction, urination problems; ?cirrhosis or other liver disease; ?an electrolyte imbalance (such as low levels of potassium or magnesium in your blood); ?gout; ?lupus; ?diabetes; or ?a sulfa drug allergy. ?Tell your doctor if you have an MRI (magnetic resonance imaging) or any type of scan using a radioactive dye that is injected into your veins. ??Both contrast dyes and furosemide can harm your kidneys. ?It is not known whether this medicine will harm an unborn baby. Tell your doctor if you are or plan to become . ?It may not be safe to breastfeed while using this medicine. Ask your doctor about any risk. ??Furosemide may slow breast milk production. ?How should I take furosemide?Follow all directions on your prescription label and read all medication guides or instruction sheets. ??Your doctor may occasionally change your dose. ??Use the medicine exactly as directed. ?Furosemide??oral??is taken by mouth. ??Furosemide??injection??is injected into a muscle or given as an infusion into a vein. ??A healthcare provider will give you this injection if you are unableto take the medicine by mouth. ?You may receive your first dose in a hospital or clinic setting if you have severe liver disease. ?Do not take more than your recommended dose. ??High doses of furosemide may cause irreversible hearing loss.?Measure??liquid medicine??carefully. Use the dosing syringe provided, or use a medicine dose-measuring device (not a kitchen spoon). ?Furosemide doses are based on weight in children. ??Your child's dose needs may change if the child gains or loses weight. ?Furosemide will make you urinate more often and you may get dehydrated easily. ??Follow your doctor's instructions about using potassium supplements or getting enough salt and potassium in your diet. ?Your blood pressure will need to be checked often and you may need other medical tests. ?If you have high blood pressure,??keep using this medicine even if you feel well.?High bloodpressure often has no symptoms. ??You may need to use blood pressure medicine for the rest of your life. ?If you need surgery, tell the surgeon ahead of time that you are using furosemide. ?Store at room temperature away from moisture, heat, and light. ??Throw away any unused??oral liquid??after 90 days. ?What happens if I miss a dose?Furosemide is sometimes used only once, so you may not be on a dosing schedule. ??If you are using the medication regularly, take the medicine as soon as you can, but skip the missed dose if it is almost time for your next dose.??Do not??take two doses at one time.?What happens if I overdose?Seek emergency medical attention or call the Poison Help line at . ?Overdose symptoms may include feeling very thirsty or hot, heavy sweating, hot and dry skin, extreme weakness, or fainting. ?What should I avoid while taking furosemide?Avoid getting up too fast from a sitting or lying position, or you may feel dizzy. ?Avoid becoming dehydrated. ??Follow your doctor's instructions about the type and amount of liquids you should drink while you are taking furosemide. ?Drinking alcohol with this medicine can cause side effects. ?If you have high blood pressure, ask a doctor or pharmacist before taking any medicines that can raise your blood pressure, such as diet pills or hdrez-wqn-vhmc medicine. ?What are the possible side effects of furosemide?Get emergency medical help if you have??signs of an allergic reaction??(hives, difficult breathing, swelling in your face or throat)??or a severe skin reaction??(fever, sore throat, burning in your eyes, skin pain, red or purple skin rash that spreads and causes blistering and peeling). ?Call your doctor at once if you have: ?a light-headed feeling, like you might pass out; ?ringing in your ears, hearing loss; ?muscle spasms or contractions; ?pale skin, easy bruising, unusual bleeding; ?high blood sugar--increased thirst, increased urination, dry mouth, fruity breath odor; ?kidney problems--little or no urination, swelling in your feet or ankles, feeling tired or short of breath;?signs of liver or pancreas problems--loss of appetite, upper stomach pain (that may spread to your back), nausea or vomiting, dark urine, jaundice (yellowing of the skin or eyes); or ?signs of an electrolyte imbalance--dry mouth, thirst, weakness, drowsiness, feeling jitteryor unsteady, vomiting, irregular heartbeats, fluttering in your chest, numbness or tingling, musclecramps, muscle weakness or limp feeling. ?Common side effects may include: ?diarrhea, constipation, loss of appetite; ?numbness or tingling; ?headache, dizziness; or ?blurred vision. ?This is not a complete list of side effects and others may occur. Call your doctor for medical advice about side effects. You may report side effects to FDA at 2-272-UAC-0896.?What other drugs will affect furosemide?Sometimes it is not safe to use certain medications at the same time.?Some drugs can affect your blood levels of other drugs you take, which may increase side effects or make the medications less effective. ?If you also take sucralfate, take your furosemide dose 2 hours before or 2 hours after you takesucralfate. ?Tell your doctor about all your other medicines, especially: ?another diuretic, especially ethacrynic acid; ?chloral hydrate; ?lithium; ?phenytoin; ?an injected antibiotic;?cancer medicine, such as cisplatin;?heart or blood pressure medicine; or ?salicylates such as aspirin, Nuprin Backache Caplet, Kaopectate, KneeRelief, Pamprin Cramp Formula, Pepto-Bismol, Tricosal, Trilisate, and others. ?This list is not complete. ??Other drugs may affect furosemide, including prescription and ykwe-vkz-qcxvple medicines, vitamins, and herbal products. ??Not all possible drug interactions are listed here. ?Where can I get more information?Your pharmacist can provide more information about furosemide. ?Remember, keep this and all other medicines out of the reach of children, never share your medicines with others, and use this medication only for the indication prescribed. ?Every effort has been made to ensure that the information provided by [employer]') is accurate, up-to-date, and complete, but no guarantee is made to that effect. Drug information contained herein may be time sensitive. [employer] information has been compiled for use by healthcare practitioners and consumers in the [place] and therefore [employer] does not warrant that uses outside of the [place] are appropriate, unless specifically indicated otherwise. [employer] drug information does not endorse drugs, diagnose patients or recommend therapy. [employer] drug information is an informational resource designed to assist licensed healthcare practitioners in caring for their patients and/or to serve consumers viewing this service as a supplement to, and not a substitutefor, the expertise, skill, knowledge and judgment of healthcare practitioners. The absence of a warning for a given drug or drug combination in no way should be construed to indicate that the drug ordrug combination is safe, effective or appropriate for any given patient. [employer] does not assume any responsibility for any aspect of healthcare administered with the aid of information [employer] provides. The information contained herein is not intended to cover all possible uses, directions, precautions, warnings, drug interactions, allergic reactions, or adverse effects. If you have questions about the drugs you are taking, check with your doctor, nurse or pharmacist.? Copyright 5135-6887 [employer] Version: 16.. Revision Date: 11/16/2018. ? Patient Name:SILVIO MOYER I have received this information and my questions have been answered. 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 Afebrile with no hypoxemia. Weight is back to his baseline and actually even a little below where he typically runs. Feels LE edema is greatly improved, though not fully resolved. No dyspnea. Objective Vitals & Measurements T:??36.8?C ??(Oral)?? TMIN:??36.4?C ??(Oral)?? TMAX:??36.8?C ??(Oral)?? HR:??86??(Peripheral)?? HR:??86??(Monitored)?? RR:??20?? BP:??120/78?? SpO2:??95%?? WT:??104.3??kg?? Pain Score:??0?? O2 Therapy:??Room air?? Physical Exam General: Well developed adult male, sitting up to edge of bed?? in no acute distress Eye: EOMI. No conjunctival injection HENT: NC/AT. Oral mucosa moist/clear. Oropharynx without edema or exudate. No nasal discharges Heart: Normal rate, regular rhythm. Lungs: Clear to auscultation bilaterally. Respirations easy and non-labored. On room air without dyspnea. Abdomen: Soft, non-tender, non-distended, bowel sounds active. No guarding or rebound. Extremities: Well healed bilateral anterior knee incisions. No open area or drainage. 2+ edema extending from ankle to proximal tibia. While edema remains present, skin is much less taught and shiny than had been on admission. Does have some residual faint erythema to distal BLE from rash previous in the week. Skin: [place], warm, and dry. Residual rash to BLE, continues to improve. Chest and back are clear. Neurologic: Awake, alert and fully oriented. Speech and cognition intact. Gait steady. Psychiatric: Cooperative, appropriate mood and affect Lab Results Last 24 Hours?? Chemistry ? Event Name?? Event Result?? Date/Time?? Sodium Level 136 mmol/L 06/28/22 05:22:00 Potassium Level 3.7 mmol/L 06/28/22 05:22:00 Chloride Level 90 mmol/L??Low 06/28/22 05:22:00 CO2 37 mmol/L??High 06/28/22 05:22:00 BUN 36 mg/dL??High 06/28/22 05:22:00 Glucose Level 102 mg/dL??High 06/28/22 05:22:00 Creatinine Level 2 mg/dL??High 06/28/22 05:22:00 BUN/Creat Ratio 18 ratio 06/28/22 05:22:00 eGFR AA 40 mL/min/1.73 m2??Low 06/28/22 05:22:00 eGFR Non-AA 33 mL/min/1.73 m2??Low 06/28/22 05:22:00 Calcium Level 8.7 mg/dL 06/28/22 05:22:00 Anion Gap 9 mmol/L 06/28/22 05:22:00 Glucose POC 105 mg/dL??High 06/28/22 07:12:00 ? Hematology ? Event Name?? Event Result?? Date/Time?? WBC 9.2 x10^3/mcL 06/28/22 05:22:00 RBC 4.25 x10^6/mcL??Low 06/28/22 05:22:00 Hgb 12.7 g/dL??Low 06/28/22 05:22:00 Hct 37.9 %??Low 06/28/22 05:22:00 MCV 89 fL 06/28/22 05:22:00 MCH 29.9 pg 06/28/22 05:22:00 MCHC 33.5 % 06/28/22 05:22:00 RDW-CV 14 % 06/28/22 05:22:00 Platelets 210 x10^3/mcL 06/28/22 05:22:00 MPV 10 06/28/22 05:22:00 Neutro Auto 47.9 % 06/28/22 05:22:00 Lymph Auto 22.6 % 06/28/22 05:22:00 Dupage Auto 12.4 % 06/28/22 05:22:00 Eos, Auto 14.1 %??High 06/28/22 05:22:00 Basophil Auto 1.2 % 06/28/22 05:22:00 Imm Gran Auto 1.8 % 06/28/22 05:22:00 NRBC Auto 0 /100 WBC 06/28/22 05:22:00 Neutro Absolute 4.39 x10^3/mcL 06/28/22 05:22:00 Lymph Absolute 2.08 x10^3/mcL 06/28/22 05:22:00 [place] Absolute 1.14 x10^3/mcL 06/28/22 05:22:00 Eos Absolute 1.3 x10^3/mcL??High 06/28/22 05:22:00 Baso Absolute 0.11 x10^3/mcL 06/28/22 05:22:00 Imm Gran Absolute 0.17 x10^3/mcL??High 06/28/22 05:22:00 NRBC Absolute 0 x10^3/mcL 06/28/22 05:22:00 ? Assessment/Plan 1.??Acute kidney injury??N17.9 -Has had progressive swelling and weight gain over past 1-2 weeks, was up 20# at one point. -No previous ECHO; no ECHO available at this facility 06/26-06/30 unfortunately -Admitted with [facility] with cre 1.8, baseline 0.9, felt to be multifactorial secondary to recent and ongoing antibiotics and fluid volume overload -Diuresed with IV Furosemide 40mg BID -Net negative 5.5L today -Cre remains up at 2.0, again felt to be secondary to both diuresis and antibiotics (which have nowbeen d/c'd) -Weight is back to baseline -No dyspnea or hypoxemia ?? Discharge plan: Patient is motivated to return home; has had improvement though not full resolutionof BLE edema. Will have him continue Furosemide 40mg BID at home with close outpatient follow up and repeat labs next week. Am hopeful that renal function will improve in??the next 1-2 weeks??being off antibiotics. Patient aware and in agreement with this plan. Aware of reasons to return. ?? 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 Donato on 04/21/22. Developed dehiscence of the mid- portion of the wound, with??persistent bloody then serous drainage from the wound -s/p surgical debridement and poly liner exchange 05/12/22??with Dr. Donato. culture of R??knee??exudate??on 05/12/22 during surgical washout grew staph epi.?? Sensitive to Vanco and Levaquin -On Vanco 05/12-06/17; Vanco stopped due to allergic reaction, required Epi, Benadryl and Solumedrol on 06/20 in ED. Changed to oral Levaquin. -Negative RLE US for DVT??06/24 -Oral Levaquin stopped 06/[address] Donato in clinic; does not believe the knee is acutely infected ?? 3.??Diabetes mellitus type II??E11.9 -Metformin and glipizide continue ?? 4.??Hypertension??I10 -Irbesartan and Propranolol ?? 5.??Hyperlipidemia??E78.5 6.??Obesity??E66.9 -BMI 38 ?? 7.??Acid reflux??K21.9 Orders: furosemide 20 mg oral tablet, 40 mg = 2 tab, Oral, BID, # 8 tab, 0 Refill(s), Pharmacy: [facility], 172.08, cm, 06/26/22 12:11:00 ANESTHESIOLOGIST ASSISTANT, Height/Length Dosing, 109.5, kg, 06/26/22 12:11:00 ANESTHESIOLOGIST ASSISTANT, Weight Dosing furosemide 40 mg oral tablet, 40 mg = 1 tab, Oral, BID, # 30 tab, 0 Refill(s), Pharmacy: [facility], 172.08, cm, 06/26/22 12:11:00 ANESTHESIOLOGIST ASSISTANT, Height/Length Dosing, 109.5, kg, 06/26/22 12:11:00 ANESTHESIOLOGIST ASSISTANT, WeightDosing furosemide 20 mg oral tablet, 160 mg = 8 tab, Oral, Tab, BID, First Dose: 06/28/22 11:00:00 ANESTHESIOLOGIST ASSISTANT, Routine Discharge Activity Restrictions, Activity as tolerated. Discharge Diet Instruction, Regular home diet Discharge Patient, 06/28/22 11:00:00 ANESTHESIOLOGIST ASSISTANT, Home Independently, accompanied by family/friend Discharge Patient Instructions, Intersperse periods of rest with periods of walking and activity. Monitor bowel and bladder elimination pattern. Keep stools soft and regular. May use farn-zil-rbyvaziYxkyIIV /stool softener as needed per package directions. Discharge Patient Instructions, Use Tylenol as needed for pain. Discharge Patient Instructions, Furosemide 40mg twice daily until seen in follow up next week. Continue to wear compression stockings, on during day, off at night. Elevate LE when sitting. Discharge Patient Instructions, Contact the doctor if: Fever, chills, chest pain, abdominal pain, nausea vomiting or diarrhea, black or bloody stools, shortness of breath, fainting or near fainting, mental status changes, falls or with any questions Discharge Respiratory Care, Monitor respiratory status. Contact provider or seek medical attention if shortness of breath or difficulty breathing. Continue use of incentive spirometer 4-6 times a dayfor one week. 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 Record weight daily Follow Up Appointment, 06/28/22 11:00:00 ANESTHESIOLOGIST ASSISTANT, Laboratory follow up. BMP 07/01/21. Send to [facility]. Dx: [facility] Follow Up Appointment, 06/28/22 11:00:00 ANESTHESIOLOGIST ASSISTANT, PCP follow up in 3-5 days, contact sooner if questions or concerns. Return to the ED for urgent/emergent conditions. [facility] Nursing Task, 06/28/22 11:00:00 ANESTHESIOLOGIST ASSISTANT, Once, Stop date 06/28/22 11:00:00 ANESTHESIOLOGIST ASSISTANT, Disassociate monitor at discharge Electronically Signed on 06/28/22 11:01 AM KALEE GUO,FINANCIAL REPRESENTATIVE-BC Patient Care team information Personnel Name: JARRETT MOHR MSN,FINANCIAL REPRESENTATIVE-BC Address: Address: [address], [place] [address]
--- OUTSIDE RECORDS SUMMARY | 2023-03-20 19:13 | XMS_ITS | Continuity of Care Document ---
Author Name Unknown Organization [facility] [address] Address [address] [place] [address] Care Team Providers Care Operations Manager Station Name Role Phone JARRETT MOHR Primary Care Physician Encounter [facility] [id number] Date(s): 06/09/22 - 06/09/22 [facility] [address] [place] [address] Discharge Disposition: Home or Self Care Attending Physician: DON TRIPP Admitting Physician: DON TRIPP Referring Physician: JARRETT MOHR MSN,HOUSE SERVANT-BC Allergies, Adverse Reactions, Alerts No Known Medication Allergies Assessment and Plan Future Appointments Appointment Date:06/10/2022 09:30:00 AM Scheduled Provider: Location:[facility] [...] Type:IV Med Therapy 90 ([facility]) Appointment Date:06/22/2022 09:00:00 AM Scheduled Provider: Location:[facility] OP PROC Appointment Type:IV Med Therapy 90 ([facility]) Future Scheduled Tests Laboratory* Vancomycin Lvl Trough 06/16/22 * Creatinine 06/16/22 Immunizations Given and Recorded Vaccine Date Status [...] Pharmacy: [facility], 172.08, cm, 05/15/22 18:25:00 RETAIL GROCER, Height/Length Dosing, 106.4, kg, 05/15/22 18:25:00 RETAIL GROCER, Weight Dosing Start Date: 05/28/22 Status: Ordered [...] 90 cap, 1 Refill(s), [facility]acy: [facility], 172, cm, 12/03/21 13:07:00 CDT, Height/Length Dosing, 112, kg, 12/03/21 13:07:00 CDT, Weight Dosing Start Date: 12/23/21 Status: Ordered sildenafil 25 mg oral tablet 25 mg = 1 tab, Oral, Daily, 1 hour before sexual activity, # 10 tab, 0 Refill(s), Pharmacy: [facility] Start Date: 07/01/21 Status: Ordered Tylenol 8 HR Arthritis Pain 650 mg oral tablet, extended release 1,300 mg = 2 tab, Oral, every 8 hr, PRN as needed for pain Start Date: 04/22/22 Status: Ordered vancomycin 1 g/200 mL-D5% intravenous solution 2 g =, IV, every 24 hr, will be recieving through the [facility] Outpatient infusion clinic, # 42 EA, 0 [...] Confirmed Active 1Records from Dr. Riley Diane, [facility] 2Records from Dr. Riley iDane, [facility] 3Records from Dr. Riley Diane, [facility] 4Records from Dr. Riley Diane, [facility] 5Records from Dr. Riley Diane, [facility] Procedures Procedure Date Related Diagnosis Body [...] sessile polyp Records from Dr. Riley Diane, [facility], [facility] 3Records from Dr. Riley Diane, [facility] 4Records from Dr. Riley Diane, [facility] 5Records from Dr. Riley Diane, [facility] Results Laboratory List Name Date Creatinine 06/09/22 Vancomycin Lvl Trough 06/09/22 Most recent to oldest [Reference Range]: 1 Vanco Tr [10.0-20.0 mcg/mL] 12.7 mcg/mL (06/09/22 9:20 AM) eGFR Non-AA [>=60 mL/min/1.73 m2] 82 mL/ min/1.73 m2 (06/09/22 9:20 AM) eGFR AA [>=60 mL/min/1.73 m2] 99 mL/min/ 1.73 m2 (06/09/22 9:20 AM) Creatinine Level [0.66-1.25 mg/dL] 0.90 mg/dL (06/09/22 9:20 AM) Social History Social History Type Response Smoking Status Never (less than 100 in lifetime) entered on: 06/16/21 Sex Patient Care team information Personnel Name: JARRETT MOHR MSN,[facility]- Address: Address: [address], [place] [address]
--- OUTSIDE RECORDS SUMMARY | 2023-03-20 19:13 | XMS_ITS | Continuity of Care Document ---
Author Name Unknown Organization [facility] Address [address] [place] [address] Care Team Providers Care Fisher Line Name Role Phone JARRETT MOHR Primary Care Physician [phone] Encounter REGM_[place] Date(s): 07/03/22 - 07/03/22 [facility] [address] [facility] [address] [place] [address]- Encounter Diagnosis Hypertension(Discharge Diagnosis) - 07/03/22 Diabetes mellitus type II(Discharge Diagnosis) - 07/03/22 Acute kidney injury(Discharge Diagnosis) - 07/03/22 Discharge Disposition: Home or Self Care Attending Physician: JARRETT MOHR MSN,RECORDS SECTION SUPERVISOR-BC Allergies, Adverse Reactions, Alerts Substance Reaction Severity Status vancomycin Acute kidney injury due to nephrotoxicity Angioedema Rash Severe Active Assessment and Plan Future Scheduled Tests Laboratory* Basic Metabolic Panel 07/10/22 Functional Status 07/03/22 Family Member Travel History No recent t [...] Instructions, # 100 EA, 5 Refill(s), [facility]: [facility] Start Date: 07/01/21 Status: Ordered furosemide 20 mg oral tablet 20 mg = 1 tab, Oral, Daily, PRN other (see comment), take 1 tab as needed for swelling, # 5 tab, 0 Refill(s), Pharmacy: [facility], 172.08, cm, 06/28/22 12:24:00 [employer], Height/Length Dosing, 109.5, kg, 06/26/22 12:11:00 [employer], Weight Dosing Start Date: 06/30/22 Status: Ordered furosemide 20 mg oral tablet 40 mg = 2 tab, Oral, BID, # 8 tab, 0 Refill(s), Pharmacy: [facility], 172.08, cm, 06/26/22 12:11:00 [employer], Height/Length Dosing, 109.5, kg, 06/26/22 12:11:00 [employer], Weight Dosing Start Date: 06/28/22 Status: Ordered furosemide 40 mg oral tablet 40 mg = 1 tab, Oral, BID, # 30 tab, 0 Refill(s), Pharmacy: [facility], 172.08, cm, 06/26/22 12:11:00 [employer], Height/Length Dosing, 109.5, kg, 06/26/22 12:11:00 [employer], Weight Dosing Start Date: 06/28/22 Status: Ordered glipiZIDE 10 mg oral tablet 5 mg = 0.5 tab, Oral, Daily, # 180 tab, 1 Refill(s), [facility]acy: [facility], 172.08, cm, 05/15/22 18:25:00 [employer], Height/Length Dosing, 106.4, kg, 05/15/22 18:25:00 [employer], Weight Dosing Start Date: 05/28/22 Status: Ordered irbesartan 300 mg oral tablet 1 tab, Oral, Daily, # 90 tab, 1 Refill(s), [facility]acy: [facility], 172.08, cm, 06/28/22 12:24:00 [employer], Height/Length Dosing, 109.5, kg, 06/26/22 12:11:00 [employer], Weight Dosing Start Date: 06/30/22 Status: Ordered Libre2 sensors Libre2 sensors, please dispense 2 sensors with a refill. thanks - patient has a coupon card, Supply, See Instructions, # 1 EA, 0 Refill(s), Pharmacy: [facility] Start Date: 09/11/21 Status: Ordered metFORMIN 1000 mg oral tablet 1 tab, Oral, BID, # 180 tab, 1 Refill(s), Pharmacy: [facility], 172.08, cm, 06/28/22 12:24:00 [employer],Height/Length Dosing, 109.5, kg, 06/26/22 12:11:00 [employer], Weight Dosing Start Date: 06/30/22 Status: Ordered propranolol 120 mg oral capsule, extended release 1 cap, Oral, Daily, # 90 cap, 1 Refill(s), Pharmacy: [facility], 172.08, cm, 06/28/22 12:24:00 [employer], Height/Length Dosing, 109.5, kg, 06/26/22 12:11:00 [employer], Weight Dosing Start Date: 06/30/22 Status: Ordered sildenafil 25 mg oral tablet 25 mg = 1 tab, Oral, Daily, 1 hour before sexual activity, # 10 tab, 0 Refill(s), Pharmacy: [facility] Start Date: 07/01/21 Status: Ordered Tylenol [...] Active 1Records from Dr. Riley Diane, [facility] 2Records from Dr. Riley Diane [facility] 3Records from Dr. Riley Diane, [facility] 4Records from Dr. Riley Diane [facility] 5Records from Dr. Riley Diane [facility] Procedures Procedure Date Related Diagnosis Body [...] sessile polyp Records from Dr. Riley Diane [facility] 3Records from Dr. Riley Diane, [facility] 4Records from Dr. Riley Diane, [facility] 5Records from Dr. Riley Diane, [facility] Vital Signs Most recent to oldest [Reference Range]: 1 Temperature Tympanic [36.6-37.9 Deg C] 3 5.9 Deg C *LOW* (07/03/22 12:26 PM) Peripheral Pulse Rate [60-100 bpm] 84 bp m (07/03/22 12:26 PM) Respiratory Rate [12-24 br/min] 20 br/mi n (07/03/22 12:26 PM) Blood Pressure [90-140/60-90 mmHg] 138/6 8mmHg (07/03/22 12:26 PM) Weight 105.7 kg (07/03/22 12:26 PM) Weight Measured (lbs) 233.028 lb (07/03/22 12:26 PM) Social History Social History Type Response Tobacco Never tobacco user T obacco Use:. Sex Physician Outpatient Note * JARRETT MOHR MSN,[employer] SECTION SUPERVISOR-BC: PERFORM Event Display: Office Clinic Note Physician Authored Date: [id number] SILVIO MOYER :1945 Age:77 years Sex:Male Visit Date:07/03/2022 Primary Care Physician: JARRETT MOHR MSN,[employer] SECTION SUPERVISOR-BC Chief Complaint follow up History of Present Illness Patient is here for a follow up. His blood pressure at 1930 last night 130/73 P:73. He took his propranolol this morning and last night. blood pressure at noon today 130/75 P:75. Weight this morning was 228#. He is starting to feel better and trying to get hydrated again. He states that he is not feeling a lethargic and drug out.??He started Propranolol back up yesterday. ?? Review of Systems General: No significant weight change- down 3 pounds Eyes: No acute visual changes?? ENMT: No dry mouth- improving. Cardiovascular: No chest pains, palpitations, or lightheadedness?? Respiratory: No cough or wheeze, no orthopnea or exertional dyspnea?? Musculoskeletal: No unusual muscle pain?? Neurological: No focal neurologic deficits?? Hematolgic/Lymphatic: No abnormal bleeding or bruising Physical Exam Vitals & Measurements T:??35.9?C ??(Tympanic)?? HR:??84??(Peripheral)?? RR:??20?? BP:??138/68?? WT:??105.7??kg?? Skin: Adequate perfusion Eyes:?? PERRL, EOMI, gaze conjugate Oropharynx:??Dry oralmucosa Neck: Supple,??Nolymphadenopathy? No thyroid enlargement or nodularity? Carotid pulses??not examined? Carotid bruit??not noted ? JVD??Absent?_ Heart:??Irregular, has??a cupple tevery -??beat no murmurs? Lungs:??Clear,??no signs of respiratory distress?? Extremities:??+1??edema.?? calf circumference was 14 inches on the??left, 15 on the right, and ankles were down to 10.5 inches on the left and 11 on the right. Palpable PT pulses.?Skin in lower legs appears healthy??Right knee is not warm to the touch, well healed knee area. Neurologic: Muscle tone normal and symmetric, no evident focal deficits? Gait is normal Depression Screening Depression Screen?? PHQ 2?? Feeling Down, Depressed, Hopeless: Not at all Initial Depression Screen Score: 0 Score Little Interest - Pleasure in Activities: Not at all Assessment/Plan 1.??Hypertension??I10 Discussed with patient his numbers in office we will discontinue the propanolol at this time. ??Pending on how labs look??next Wednesday as well as his blood pressures will consider starting back up he??I be restarted can. 2.??Diabetes mellitus type II??E11.9 Blood sugars have significantly skyrocketed however??due to stopping??his??oral medication. ??He will start back on metformin 500 mg??daily. ??He will keep track of his blood sugars with his CGM and we will reconvene on Wednesday after he has labs. 3.??Acute kidney injury??N17.9 Patient's??creatinine has dropped from 2.3 down to 1.5. ??I am very happy with this number.?? He isfeeling much better. ??He has a follow-up scheduled with Dr. Serrano on Wednesday the . ??However pending labs and how patient is doing starting back on his oral medications slowly??will determine ifwe continue to keep this appointment or cancel it.?? We will follow-up with patient pending labs and??blood pressure and weight.?? In 1 week. ? Metformin start back on 500mg once a day. Morning. Continue checking weight daily, 2 pound increase in 2 days or 5 pounds in 1 week- Phone call or Short of breath or any changes. Call me next Wednesday with an update. repeat bmp on wednesday, will cancel Zach if needed. ?? Patient Instructions Metformin start back on 500mg once a day. Morning. Continue checking weight daily, 2 pound increase in 2 days or 5 pounds in 1 week- Phone call or Short of breath or any changes. Call me next Wednesday with an update. repeat bmp on wednesday, will cancel Zach if needed. Future Orders Basic Metabolic Panel, Blood, Routine, *Est. 07/10/22 +/- 2 days, Once, Lab Collect, Function kidney decreased, Order for future visit Problem List/Past Medical History Ongoing Acid reflux Acute kidney injury Arthritis of left knee Diabetes mellitus type II Erectile dysfunction Gout Hyperlipidemia Hypertension Infection of prosthetic right knee joint Obesity Osteoarthritis of right knee joint Shoulder joint pain Historical No qualifying data Procedure/Surgical History ???Revision right total knee arthroplasty, irrigation and debridement with exchange of polyethylene. (05/12/2022)???Right total knee arthroplasty. (04/21/2022)???Left total knee arthroplasty. (12/02/2021)???Screening colonoscopy (Repeat 2021) (12/01/2016)???Appendectomy???Cholecystectomy???Removal of cataract Medications Contour Next Test Strips, See Instructions, 5 refills furosemide 20 mg oral tablet, 20 mg= 1 tab, Oral, Daily, PRN furosemide 20 mg oral tablet, 40 mg= 2 tab, Oral, BID furosemide 40 mg oral tablet, 40 mg= 1 tab, Oral, BID glipiZIDE 10 mg oral tablet, 5 mg= 0.5 tab, Oral, Daily, 1 refills irbesartan 300 mg oral tablet, 1 tab, Oral, Daily, 1 refills Libre2 sensors, See Instructions metFORMIN 1000 mg oral tablet, 1 tab, Oral, BID, 1 refills propranolol 120 mg oral capsule, extended release, 1 cap, Oral, Daily, 1 refills sildenafil 25 mg oral tablet, 25 mg= 1 tab, Oral, Daily Tylenol 8 HR Arthritis Pain 650 mg oral tablet, extended release, 1300 mg= 2 tab, Oral, every 8 hr,PRN Allergies vancomycin??(Acute kidney injury due to nephrotoxicity, Angioedema, Rash) Social History Alcohol Current, Beer, Wine, Liquor, 1-2 times per week- Comments: 1-2 per day Electronic Cigarette/Vaping Electronic Cigarette Use: Never. Employment/School Retired Home/Environment Lives with Spouse. Substance Use Never Tobacco Never tobacco user Tobacco Use:. Family History Hypertension: Brother. Obesity: Brother. Sister: History is negative Sister: History is negative Brother: History is negative Family Member(s): ?? FATHER, at age: Unknown. Cause of : Family Member(s): ?? MOTHER, at age: Unknown. Cause of : Immunizations Vaccine Date Status influenza virus vaccine, inactivated 03/23/2022 Given SARS-CoV-2 mRNA-1273 bivalent booster 03/11/2022 Given SARS-CoV-2 (COVID-19) mRNA-1273 vaccine 10/24/2021 Given zoster vaccine, inactivated 06/16/2021 Given SARS-CoV-2 (COVID-19) mRNA-1273 vaccine 04/25/2021 Recorded influenza virus vaccine, inactivated 04/03/2021 Recorded SARS-CoV-2 (COVID-19) mRNA-1273 vaccine 09/13/2020 Recorded SARS-CoV-2 (COVID-19) mRNA-1273 vaccine 08/16/2020 Recorded influenza virus vaccine, inactivated 04/29/2020 Given zoster vaccine, inactivated 2019 Recorded tetanus/diphth/pertuss (Tdap) adult/adol 2019 Recorded influenza, unspecified formulation 2019 Recorded pneumococcal 13-valent conjugate vaccine 04/02/2015 Recorded zoster vaccine live 01/26/2011 Recorded pneumococcal 23-polyvalent vaccine 01/26/2011 Recorded Lab Results Last 1 Week?? Chemistry ? Event Name?? Event Result?? Date/Time?? Sodium Level 136 mmol/L 07/03/22 08:52:00 Potassium Level 4 mmol/L 07/03/22 08:52:00 Chloride Level 95 mmol/L 07/03/22 08:52:00 CO2 31 mmol/L 07/03/22 08:52:00 Alk Phos 28 unit/L??Low 07/03/22 08:52:00 AST 27 unit/L 07/03/22 08:52:00 ALT 27 unit/L 07/03/22 08:52:00 BUN 33 mg/dL??High 07/03/22 08:52:00 Glucose Level 278 mg/dL??High 07/03/22 08:52:00 Creatinine Level 1.5 mg/dL??High 07/03/22 08:52:00 BUN/Creat Ratio 22 ratio 07/03/22 08:52:00 eGFR AA 55 mL/min/1.73 m2??Low 07/03/22 08:52:00 eGFR Non-AA 46 mL/min/1.73 m2??Low 07/03/22 08:52:00 Calcium Level 8.6 mg/dL 07/03/22 08:52:00 Protein Total 6.1 g/dL 07/03/22 08:52:00 Albumin Level 4.1 g/dL 07/03/22 08:52:00 Globulin 2 g/dL 07/03/22 08:52:00 A/G Ratio 2.1 ratio 07/03/22 08:52:00 Bilirubin Total 0.6 mg/dL 07/03/22 08:52:00 Anion Gap 10 mmol/L 07/03/22 08:52:00 Glucose POC 226 mg/dL??High 06/28/22 11:12:00 ? Hematology ? Event Name?? Event Result?? [...] 05:22:00 Lymph Auto 22.6 % 06/28/22 05:22:00 Obion Auto 12.4 % 06/28/22 05:22:00 Eos, Auto 14.1 %??High 06/28/22 05:22:00 Basophil Auto 1.2 % 06/28/22 05:22:00 Imm Gran Auto 1.8 % 06/28/22 05:22:00 NRBC Auto 0 /100 WBC 06/28/22 05:22:00 Neutro Absolute 4.39 x10^3/mcL 06/28/22 05:22:00 Lymph Absolute 2.08 x10^3/mcL 06/28/22 05:22:00 Obion Absolute 1.14 x10^3/mcL 06/28/22 05:22:00 Eos Absolute 1.3 x10^3/mcL??High 06/28/22 05:22:00 Baso Absolute 0.11 x10^3/mcL 06/28/22 05:22:00 Imm Gran Absolute 0.17 x10^3/mcL??High 06/28/22 05:22:00 NRBC Absolute 0 x10^3/mcL 06/28/22 05:22:00 ? Urinalysis ? Event Name?? Event Result?? Date/Time?? Urine Srce Clean Catch 07/03/22 08:52:00 UA Color Yellow 07/03/22 08:52:00 UA Appear Clear 07/03/22 08:52:00 UA Glucose Negative 07/03/22 08:52:00 UA Bili Negative 07/03/22 08:52:00 UA Ketones Negative 07/03/22 08:52:00 UA Spec Grav 1.015 07/03/22 08:52:00 UA Blood Negative 07/03/22 08:52:00 UA pH 5.5 07/03/22 08:52:00 UA Protein 1+ Abnormal 07/03/22 08:52:00 UA Urobilinogen 0.2 IntlUnit/dL 07/03/22 08:52:00 UA Nitrite Negative 07/03/22 08:52:00 UA Leuk Est Negative 07/03/22 08:52:00 UA Culture Ind?. Not Indicated 07/03/22 08:52:00 UA WBC 0-3 07/03/22 08:52:00 UA RBC None Seen 07/03/22 08:52:00 UA Squam Epithelial 0-3 07/03/22 08:52:00 UA Bacteria Negative 07/03/22 08:52:00 ? Electronically Signed on 07/03/22 01:59 PM JARRETT MOHR MSN,RECORDS SECTION SUPERVISOR-BC Outpatient Summary note * JASON REDMAN: PERFORM Event Display: Ambulatory Patient Summary Authored Date: [id number] SILVIO MOYER :1945 Age:77 years Sex:Male Visit Date:07/03/2022 Primary Care Physician: JARRETT MOHR,[facility] Ambulatory Visit Instructions We would like to thank you for allowing us to assist you with your healthcare needs. The following includes patient education materials and information regarding your injury/illness. After you leave the office, you may get your health information including your test results, physician notes and discharge information by accessing your Patient Portal. If you do not have a patient portal account set up, please contact __. Your Next Steps Instructions From Your Care Team Metformin start back on 500mg once a day. Morning. Continue checking weight daily, 2 pound increase in 2 days or 5 pounds in 1 week- Phone call or Short of breath or any changes. Call me next Wednesday with an update. repeat bmp on wednesday, will cancel Zach if needed. Medications What How Much When Why Instructions Unchanged acetaminophen (Tylenol 8 HR Arthritis Pain 650 mg oral tablet, extended release) 2 tab Oral (given by mouth) Every 8 hours as needed for as needed for pain Unchanged Durable Medical Equipment for Prescription (Contour Next Test Strips) See instructions Diabetes mellitus type II check blood sugar BID ?? Unchanged Durable Medical Equipment for Prescription (Libre2 sensors) See instructions please dispense 2 sensors with a refill. thanks - patient has a coupon card ?? Unchanged furosemide (furosemide 20 mg oral tablet) 2 tab Oral (given by mouth) 2 times a day Unchanged furosemide (furosemide 20 mg oral tablet) 1 tab Oral (given by mouth) Every day as needed for other (see comment) take 1 tab as needed for swelling ?? Unchanged furosemide (furosemide 40 mg oral tablet) 1 tab Oral (given by mouth) 2 times a day Unchanged glipiZIDE (glipiZIDE 10 mg oral tablet) 0.5 tab Oral (given by mouth) Every day Unchanged irbesartan (irbesartan 300 mg oral tablet) 1 tab Oral (given by mouth) Every day Unchanged metFORMIN (metFORMIN 1000 mg oral tablet) 1 tab Oral (given by mouth) 2 times a day Unchanged propranolol (propranolol 120 mg oral capsule, extended release) 1 Capsules Oral (given by mouth) Every day Unchanged sildenafil (sildenafil 25 mg oral tablet) 1 tab Oral (given by mouth) Every day 1 hour before sexual activity ?? Your Summary Your Care Team Attending Physician - JARRETT MOHR,[employer] SECTION SUPERVISOR-BC Primary Care Physician - JARRETT MOHR,[employer] SECTION SUPERVISOR-BC Allergies vancomycin??(Acute kidney injury due to nephrotoxicity, Angioedema, Rash) Electronically Signed on: 07/03/2022 13:05 CSTSigned by:AYSHA Patient Care team information Personnel Name: JARRETT MOHR,[facility]- Address: Address: [address] [place], [place] [address]
--- OUTSIDE RECORDS SUMMARY | 2023-03-20 19:14 | XMS_ITS | Continuity of Care Document ---
Author Name Unknown Organization [facility] ter Address [address] [place] [address] Care Team Providers Care Poured Pipe Maker Name Role Phone JARRETT MOHR Primary Care Physician Encounter REGM_[place] Date(s): 05/05/22 - 05/05/22 [facility] [address] [place] [address] Discharge Disposition: Home or Self Care Attending Physician: ASIYA DONATO MD Admitting Physician: ASIYA DONATO MD Referring Physician: JARRETT MOHR MSN,[employer]-BC Allergies, Adverse Reactions, Alerts No Known Medication [...] Instructions, # 100 EA, 5 Refill(s), [facility]acy: [facility] Start Date: 07/01/21 Status: Ordered glipiZIDE [...] Instructions, # 1 EA, 0 Refill(s), Pharmacy: [facility] Start Date: 09/11/21 Status: Ordered metFORMIN [...] Confirmed Active 1Records from Dr. Riley Diane, [facility] 2Records from Dr. Riley Diane, [facility] 3Records from Dr. Riley Diane, [facility] 4Records from Dr. Riley Diane, [facility] 5Records from Dr. Riley Diane, [facility] Procedures Procedure Date Related Diagnosis Body Site Status Left total knee arthroplasty. 12/02/21 Completed Screening colonoscopy (Repeat 2021) 1 12/01/16 Completed Appendectomy 2 Completed Cholecystectomy 3 Complet ed Removal of cataract 4 Com pleted 12 mm sessile polyp Records from Dr. Riley Diane, [facility] 2Records from Dr. Riley Diane, [facility] 3Records from Dr. Riley Diane, [facility] 4Records from Dr. Riley Diane, [facility] Social History Social History Type Response Smoking Status Never (less than 100 in lifetime) entered on: 06/16/21 Sex Patient Care team information Personnel Name: JARRETT MOHR MSN,[facility]- Address: Address: [address] [place], [place] [address]
--- OUTSIDE RECORDS SUMMARY | 2023-03-20 19:14 | XMS_ITS | Continuity of Care Document ---
Author Name Unknown Organization [facility] ter Address [address] [place] [address] Care Team Providers Care Fish Drier Name Role Phone MOHRJARRETT CLEMENS Catherine Primary Care Physician [phone] Encounter REGM_[place] Date(s): 04/17/22 - 04/17/22 [facility] [address] [place] [address] Discharge Disposition: Home or Self Care Attending Physician: ASIYA DONATO MD Admitting Physician: ASIYA DONATO MD Referring Physician: ASIYA DONATO MD Allergies, Adverse Reactions, Alerts No Known Medication Allergies Assessment and Plan Future Appointments Immunizations Given and Recorded Vaccine Date Status Refusal Reason influenza virus vaccine, inactivated 03/23/22 Give n influenza virus vaccine, inactivated 04/03/21 Jalil rded influenza virus vaccine, inactivated 04/29/20 Give n SARS-COV-2 mRNA-1273 bivalent booster 03/11/22 Giv en SARS-CoV-2 [...] pneumococcal 23-polyvalent vaccine 01/26/11 Record ed Medications acetaminophen 500 mg oral tablet 1,000 mg = 2 tab, Oral, every 6 hr, PRN pain, 0 Refill(s) Start Date: 12/03/21 Status: Ordered Contour Next Test Strips Contour Next Test Strips, check blood sugar BID, Supply, See Instructions, # 100 EA, 5 Refill(s), Pharmacy: [facility] Start Date: 07/01/21 Status: Ordered FreeStyle Nadira 2 Sensor kit FreeStyle Nadira 2 Sensor kit, See Instructions, USE DIRECTED, # 2 kits, 5 Refill(s), Pharmacy: [facility], 172, cm, 12/03/21 13:07:00 CDT, Height/Length Dosing, 112, kg, 12/03/21 13:07:00 CDT, Weight Dosing Start Date: 03/09/22 Status: Ordered glipiZIDE 10 mg oral tablet 5 mg = 0.5 tab, Oral, Daily, # 180 tab, 1 Refill(s), Pharmacy: [facility], 172, cm, 12/03/21 13:07:00 CDT, Height/Length Dosing, 112, kg, 12/03/21 13:07:00 CDT, Weight Dosing Start Date: 01/23/22 Status: Ordered Hibiclens 4% topical soap See Instructions, Shower with soap the night before and the morning for surgey., # 240 mL, 0 Refill(s), Pharmacy: [facility], 172, cm, 12/03/21 13:07:00 CDT, Height/Length Dosing, 112, kg, 12/03/21 13:07:00 CDT, Weight Dosing Start Date: 03/23/22 Status: Ordered irbesartan 300 mg oral tablet 1 tab, Oral, Daily, # 90 tab, 1 Refill(s), Pharmacy: [facility], 172, cm, 12/03/21 13:07:00 CDT, Height/Length Dosing, 112, kg, 12/03/21 13:07:00 CDT, Weight Dosing Start Date: 12/23/21 Status: Ordered Libre2 sensors Libre2 sensors, please dispense 2 sensors with a refill. thanks - patient has a coupon card, Supply, See Instructions, # 1 EA, 0 Refill(s), Pharmacy: [facility] Start Date: 09/11/21 Status: Ordered metFORMIN 1000 mg oral tablet 1 tab, Oral, BID, 1,000 in the morning nothing to 500 mg at night depending on what his numbers arerunning, # 180 tab, 1 Refill(s), Pharmacy: [facility], 172, cm, 12/03/21 13:07:00 CDT, Height/Length Dosing, 112, kg, 12/03/21 13:07:00 CDT, Weight D... Start Date: 12/23/21 Status: Ordered nabumetone 500 mg oral tablet 500 mg = 1 tab, Oral, Daily, # 60 tab, 0 Refill(s) Start Date: 10/24/21 Status: Ordered propranolol 120 mg oral capsule, extended release 1 cap, Oral, Daily, # 90 cap, 1 Refill(s), [facility]: [facility], 172, cm, 12/03/21 13:07:00 CDT, Height/Length Dosing, 112, kg, 12/03/21 13:07:00 CDT, Weight Dosing Start Date: 12/23/21 Status: Ordered sildenafil 25 mg oral tablet 25 mg = 1 tab, Oral, Daily, 1 hour before sexual activity, # 10 tab, 0 Refill(s), Pharmacy: [facility] Start Date: 07/01/21 Status: Ordered Problem List Condition Confirmation Course [...] Confirmed Active 1Records from Dr. Riley Diane, [facility] 2Records from Dr. Riley Diane, [facility] 3Records from Dr. Riley Diane, [facility] 4Records from Dr. Riley Diane, [facility] 5Records from Dr. Riley Diane, [facility] Procedures Procedure Date Related Diagnosis Body Site Status Left total knee arthroplasty. 12/02/21 Completed Screening colonoscopy (Repeat 2021) 1 6/6/17 Completed Appendectomy 2 Completed Cholecystectomy 3 Complet ed Removal of cataract 4 Com pleted 12 mm sessile polyp Records from Dr. Riley Diane, [facility] 2Records from Dr. Riley Diane, [facility] 3Records from Dr. Riley Diane, [facility] 4Records from Dr. Riley Diane, [facility] Results Laboratory List Name Date Glucose POCT 04/17/22 Most recent to oldest [Reference Range]: 1 Glucose POC [70-100 mg/dL] 147 mg/dL *HI* (04/17/22 11:11 AM) Social History Social History Type Response Smoking Status Never (less than 100 in lifetime) entered on: 06/16/21 Sex Patient Care team information Personnel Name: JARRETT MOHR MSN,[employer]- Address: Address: [address] [place], [place] [address]
--- OUTSIDE RECORDS SUMMARY | 2023-03-20 19:14 | XMS_ITS | Continuity of Care Document ---
Author Name Unknown Organization [facility] ter Address [address] [place] [address] Care Team Providers Care Medical Office Technologist Name Role Phone DIONY MOHRAH Catherine Primary Care Physician [phone] Encounter REGM_[place] Date(s): 03/09/22 - 07/29/22 [facility] [address] [place] [address] [phone] Encounter Diagnosis Presence of right artificial knee joint(Final) - Pain in right knee(Final) - Other reduced mobility(Final) - Muscle weakness (generalized)(Final) - Other abnormalities of gait and mobility(Final) - Stiffness of right knee, not elsewhere classified(Final) - Discharge Disposition: Home or Self Care Attending Physician: ASIYA DONATO MD Admitting Physician: ASIYA DONATO MD Referring Physician: ASIYA DONATO MD Allergies, Adverse Reactions, Alerts Substance Reaction Severity Status vancomycin Acute kidney injury due to nephrotoxicity Angioedema Rash Severe Active Assessment and Plan Future Scheduled Tests Laboratory* Basic Metabolic Panel 07/27/22 Functional Status 05/19/22 Prior ADL Status Independent Prior Mobility Status Independent Prior Instrumental ADL Level Independent Prior Cognitive-Communication Skills Ind ependent 05/19/22 Lives With Spouse Living Situation Home independently Patient's Responsibilities Rehab 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, Bleach Boiler Filler, Home management, Personal ADL Immunizations Given and Recorded Vaccine Date Status [...] Instructions, # 100 EA, 5 Refill(s), Pharmacy: [email or web address] Start Date: 07/01/21 Status: Ordered furosemide 20 mg oral tablet 20 mg = 1 tab, Oral, Daily, PRN other (see comment), take 1 tab as needed for swelling, # 5 tab, 0 Refill(s), [facility]acy: [facility], 172.08, cm, 06/28/22 12:24:00 APPLICATION LEAD, Height/Length Dosing, 109.5, kg, 06/26/22 12:11:00 APPLICATION LEAD, Weight Dosing Start Date: 06/30/22 Status: Ordered furosemide 20 mg oral tablet 40 mg = 2 tab, Oral, BID, # 8 tab, 0 Refill(s), Pharmacy: [facility], 172.08, cm, 06/26/22 12:11:00 APPLICATION LEAD, Height/Length Dosing, 109.5, kg, 06/26/22 12:11:00 APPLICATION LEAD, Weight Dosing Start Date: 06/28/22 Status: Ordered furosemide 40 mg oral tablet 40 mg = 1 tab, Oral, BID, # 30 tab, 0 Refill(s), [facility]: [facility], 172.08, cm, 06/26/22 12:11:00 APPLICATION LEAD, Height/Length Dosing, 109.5, kg, 06/26/22 12:11:00 APPLICATION LEAD, Weight Dosing Start Date: 06/28/22 Status: Ordered glipiZIDE 10 mg oral tablet 5 mg = 0.5 tab, Oral, Daily, # 180 tab, 1 Refill(s), [facility]: [facility], 172.08, cm, 05/15/22 18:25:00 APPLICATION LEAD, Height/Length Dosing, 106.4, kg, 05/15/22 18:25:00 APPLICATION LEAD, Weight Dosing Start Date: 05/28/22 Status: Ordered irbesartan 300 mg oral tablet 1 tab, Oral, Daily, # 90 tab, 1 Refill(s), [facility]: [facility], 172.08, cm, 06/28/22 12:24:00 APPLICATION LEAD, Height/Length Dosing, 109.5, kg, 06/26/22 12:11:00 APPLICATION LEAD, Weight Dosing Start Date: 06/30/22 Status: Ordered Libre2 sensors Libre2 sensors, please dispense 2 sensors with a refill. thanks - patient has a coupon card, Supply, See Instructions, # 1 EA, 0 Refill(s), Pharmacy: [facility] Start Date: 09/11/21 Status: Ordered metFORMIN 1000 mg oral tablet 1 tab, Oral, BID, # 180 tab, 1 Refill(s), [facility]: [facility], 172.08, cm, 06/28/22 12:24:00 APPLICATION LEAD,Height/Length Dosing, 109.5, kg, 06/26/22 12:11:00 APPLICATION LEAD, Weight Dosing Start Date: 06/30/22 Status: Ordered propranolol 120 mg oral capsule, extended release 1 cap, Oral, Daily, # 90 cap, 1 Refill(s), [facility]acy: [facility], 172.08, cm, 06/28/22 12:24:00 APPLICATION LEAD, Height/Length Dosing, 109.5, kg, 06/26/22 12:11:00 APPLICATION LEAD, Weight Dosing Start Date: 06/30/22 Status: Ordered sildenafil 25 mg oral tablet 25 mg = 1 tab, Oral, Daily, 1 hour before sexual activity, # 10 tab, 0 Refill(s), Pharmacy: [email or web address] Start Date: 07/01/21 Status: Ordered Tylenol [...] Confirmed Active 1Records from Dr. Riley Diane, [facility] 2Records from Dr. Riley Diane, [facility] 3Records from Dr. Riley iDane, [facility] 4Records from Dr. Riley Diane, [facility] 5Records from Dr. Riley Diane, [facility] Procedures Procedure Date Related Diagnosis [...] sessile polyp Records from Dr. Riley Diane, [facility] 3Records from Dr. Riley Diane, [facility] 4Records from Dr. Riley Diane, [facility] 5Records from Dr. Riley Diane, [facility] Social History Social History Type Response Tobacco Never tobacco user T obacco Use:. Sex Patient Care team information Personnel Name: MOHRJARRETT MSN,[facility]- Address: Address: [address], [place] [address]
--- OUTSIDE RECORDS SUMMARY | 2023-03-20 19:14 | XMS_ITS | Continuity of Care Document ---
Author Name Unknown Organization [facility] ter Address [address] [place] [address] Care Team Providers Care Brick Tosser Name Role Phone JARRETT MOHR Primary Care Physician Encounter REGM_[place] Date(s): 08/07/22 - 08/07/22 [facility] [address] [place] [phone] Discharge Disposition: Home or Self Care Attending Physician: JARRETT MOHR MSN,ALIGNING INSPECTOR-BC Admitting Physician: JARRETT MOHR MSN,ALIGNING INSPECTOR-BC Referring Physician: JARRETT MOHR MSN,ALIGNING INSPECTOR-BC Allergies, Adverse Reactions, Alerts Substance Reaction Severity [...] Pharmacy: [facility], 172.08, cm, 06/28/22 12:24:00 CAFETERIA TEAM LEADER, Height/Length Dosing, 109.5, kg, 06/26/22 12:11:00 CAFETERIA TEAM LEADER, Weight Dosing Start Date: 06/30/22 Status: Ordered furosemide 20 mg oral tablet 40 mg = 2 tab, Oral, BID, # 8 tab, 0 Refill(s), Pharmacy: [facility], 172.08, cm, 06/26/22 12:11:00 CAFETERIA TEAM LEADER, Height/Length Dosing, 109.5, kg, 06/26/22 12:11:00 CAFETERIA TEAM LEADER, Weight Dosing Start Date: 06/28/22 Status: Ordered furosemide 40 mg oral tablet 40 mg = 1 tab, Oral, BID, # 30 tab, 0 Refill(s), Pharmacy: [facility], 172.08, cm, 06/26/22 12:11:00 CAFETERIA TEAM LEADER, Height/Length Dosing, 109.5, kg, 06/26/22 12:11:00 CAFETERIA TEAM LEADER, Weight Dosing Start Date: 06/28/22 Status: Ordered glipiZIDE 10 mg oral tablet 5 mg = 0.5 tab, Oral, Daily, # 180 tab, 1 Refill(s), Pharmacy: [facility], 172.08, cm, 05/15/22 18:25:00 CAFETERIA TEAM LEADER, Height/Length Dosing, 106.4, kg, 05/15/22 18:25:00 CAFETERIA TEAM LEADER, Weight Dosing Start Date: 05/28/22 Status: Ordered irbesartan 300 mg oral tablet 1 tab, Oral, Daily, # 90 tab, 1 Refill(s), Pharmacy: [facility], 172.08, cm, 06/28/22 12:24:00 CAFETERIA TEAM LEADER, Height/Length Dosing, 109.5, kg, 06/26/22 12:11:00 CAFETERIA TEAM LEADER, Weight Dosing Start Date: 06/30/22 Status: Ordered Libre2 sensors Libre2 sensors, please dispense 2 sensors with a refill. thanks - patient has a coupon card, Supply, See Instructions, # 1 EA, 0 Refill(s), Pharmacy: [facility] Start Date: 09/11/21 Status: Ordered metFORMIN 1000 mg oral tablet 1 tab, Oral, BID, # 180 tab, 1 Refill(s), [facility], 172.08, cm, 06/28/22 12:24:00 CAFETERIA TEAM LEADER,Height/Length Dosing, 109.5, kg, 06/26/22 12:11:00 CAFETERIA TEAM LEADER, Weight Dosing Start Date: 06/30/22 Status: Ordered propranolol 120 mg oral capsule, extended release 1 cap, Oral, Daily, # 90 cap, 1 Refill(s), Pharmacy: [facility], 172.08, cm, 06/28/22 12:24:00 CAFETERIA TEAM LEADER, Height/Length Dosing, 109.5, kg, 06/26/22 12:11:00 CAFETERIA TEAM LEADER, Weight Dosing Start Date: 06/30/22 Status: Ordered sildenafil 25 mg oral tablet 25 mg = 1 tab, Oral, Daily, 1 hour before sexual activity, # 10 tab, 0 Refill(s), Pharmacy: [facility] Start Date: 07/01/21 Status: Ordered Tylenol [...] [facility] 4Records from Dr. Riley Diaen, [facility] 5Records from Dr. Riley [...] from Dr. Riley Diane, [facility] Results Laboratory List Name Date Basic Metabolic Panel 08/07/22 Most recent to oldest [Reference Range]: 1 BUN [6-20 mg/dL] 30 mg/dL *HI* (08/07/22 9:19 AM) Glucose Level [70-100 mg/dL] 157 mg/dL *HI* (08/07/22 9:19 AM) Potassium Level [3.5-5.5 mmol/L] 4.3 mmo l/L (08/07/22 9:19 AM) Sodium Level [135-150 mmol/L] 141 mmol/L (08/07/22 9:19 AM) Calcium Level [8.4-10.4 mg/dL] 9.5 mg/dL (08/07/22 9:19 AM) CO2 [22-32 mmol/L] 30 mmol/L (08/07/22 9:19 AM) eGFR Non-AA [>=60 mL/min/1.73 m2] 49 mL/ min/1.73 m2 *LOW* (08/07/22 9:19 AM) eGFR AA [>=60 mL/min/1.73 m2] 60 mL/min/ 1.73 m2 (08/07/22 9:19 AM) Chloride Level [95-110 mmol/L] 100 mmol/ L (08/07/22 9:19 AM) BUN/Creat Ratio [6.0-22.0 ratio] 21.4 ra viri (08/07/22 9:19 AM) Creatinine Level [0.66-1.25 mg/dL] 1.40 mg/dL *HI* (08/07/22 9:19 AM) Anion Gap [3.0-11.0 mmol/L] 11.0 mmol/L (08/07/22 9:19 AM) Social History Social History Type Response Tobacco Never tobacco user T obacco Use:. Sex Patient Care team information Care Team Personnel Name: JARRETT MOHR MSN,ALIGNING INSPECTOR-BC Position: Nurse Practitioner Member Role: Informed Provider Address: Address: [address] [place] [address] Name: KALEE GUO MSN,ALIGNING INSPECTOR- Position: Nurse Practitioner Member Role: Nurse Practitioner Address: Address: [address] [place] [address] Name: SARAI BOWEN MSN,[facility],ALIGNING INSPECTOR- Position: Nurse Practitioner Member Role: Nurse Practitioner Address: Address: [address] [place] [address] Care Team Related Persons Name: ASTER MOYER Address: Home [address] [place] [address], [phone]
--- OUTSIDE RECORDS SUMMARY | 2023-03-20 19:14 | XMS_ITS | Continuity of Care Document ---
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 Name Role Phone JARRETT MOHR Primary Care Physician Encounter REGM_[place] Date(s): 06/23/22 - 06/23/22 [facility] [address] [place] [address] Encounter Diagnosis D-dimer, elevated(Discharge Diagnosis) - 06/23/22 Edema of right lower leg(Discharge Diagnosis) - 06/23/22 Discharge Disposition: Home or Self Care Attending Physician: KINGSLEY MEAD Admitting Physician: KINGSLEY MEAD PAC Allergies, Adverse Reactions, Alerts Substance Reaction Severity Status vancomycin Acute kidney injury due to nephrotoxicity Angioedema Rash Severe Active Assessment and Plan Future Appointments Future Scheduled Tests Radiology* US Lower Ext Venous Duplex Right 06/24/22 Functional Status 06/23/22 Other exposure to Infectious Disease Non e [...] hr, # 30 tab, 0 Refill(s), Pharmacy: [facility], 172.08, cm, 05/15/22 18:25:00 METAL BALER, Height/Length Dosing, 106.4, kg, 05/15/22 18:25:00 METAL BALER, Weight Dosing Start Date: 06/17/22 Stop Date: 07/17/22 Status: Ordered aspirin 325 mg oral tablet 325 mg = 1 tab, Oral, Daily, 0 Refill(s) Start Date: 04/22/22 Status: Ordered Contour Next Test Strips Contour Next Test Strips, check blood sugar BID, Supply, See Instructions, # 100 EA, 5 Refill(s), Pharmacy: [facility] Start Date: 07/01/21 Status: Ordered glipiZIDE 10 mg oral tablet 2 tab, Oral, Daily, # 180 tab, 1 Refill(s), Pharmacy: [facility], 172.08, cm, 05/15/22 18:25:00 METAL BALER, Height/Length Dosing, 106.4, kg, 05/15/22 18:25:00 METAL BALER, Weight Dosing Start Date: 05/28/22 Status: Ordered [...] Instructions, # 1 EA, 0 Refill(s), Pharmacy: [facility] Start Date: 09/11/21 Status: Ordered metFORMIN 1000 [...] activity, # 10 tab, 0 Refill(s), Pharmacy: [facility] Start Date: 07/01/21 Status: Ordered Tylenol 8 HR Arthritis Pain 650 mg oral tablet, extended release 1,300 mg = 2 tab, Oral, every 8 hr, PRN as needed for pain Start Date: 04/22/22 Status: Ordered vancomycin 1 g/200 mL-D5% intravenous solution 2 g =, IV, every 24 hr, will be recie[place] [facility] [place], # 42 EA, 0 Refill(s), other reason (Rx) Start Date: 05/15/22 Stop Date: 06/26/22 Status: Ordered Mental Status 06/23/22 Eye Opening Response Patrica Spontaneous ly Best Verbal Response Mcclusky Oriented Best Motor Response Mcclusky Obeys comman ds Mcclusky Coma Score 15 Problem List Condition Confirmation [...] Confirmed Active 1Records from Dr. Riley Diane, [facility] 2Records from Dr. Riley Diane, [facility] 3Records from Dr. Riley Diane, [facility] 4Records from Dr. Riley Diane, [facility] 5Records from Dr. Riley Diane, [facility] Procedures Procedure Date Related Diagnosis Body Site [...] sessile polyp Records from Dr. Riley Diane, [facility] 3Records from Dr. Riley Diane, [facility] 4Records from Dr. Riley Diane, [facility] 5Records from Dr. Riley Diane, [facility] Results Laboratory List Name Date Automated Diff 06/23/22 C-Reactive Protein (CRP) 06/23/22 CBC w/ Diff 06/23/22 Comprehensive Metabolic Panel (CMP) 05/29 01/16 D-Dimer 06/23/22 Procalcitonin 06/23/22 Sedimentation Rate (ESR) 06/23/22 Most recent to oldest [Reference Range]: 1 WBC [4.0-10.5 x10^3/mcL] 10.1 x10^3/mcL (06/23/22 10:32 PM) RBC [4.40-5.80 x10^6/mcL] 4.39 x10^6/mcL *LOW* (06/23/22 10:32 PM) Neutro Auto [40.0-75.0 %] 53.7 % (06/23/22 10:32 PM) Lymph Auto [19.0-45.0 %] 16.2 % *LOW* (06/23/22 10:32 PM) [place] Auto [1.0-13.0 %] 10.6 % (06/23/22 10:32 PM) Basophil Auto [0.0-2.0 %] 1.1 % (06/23/22 10:32 PM) BUN [6-20 mg/dL] 30 mg/dL *HI* (06/23/22 10:32 PM) Glucose Level [70-100 mg/dL] 190 mg/dL *HI* (06/23/22 10:32 PM) Potassium Level [3.5-5.5 mmol/L] 5.2 mmo l/L (06/23/22 10:32 PM) Baso Absolute [0.00-0.20 x10^3/mcL] 0.11 x10^3/mcL (06/23/22 10:32 PM) MCV [78-100 fL] 91 fL (06/23/22 10:32 PM) CRP [0.0-5.0 mg/L] 13.2 mg/L *HI* (06/23/22 10:32 PM) AST [0-41 unit/L] 29 unit/L (06/23/22 10:32 PM) ALT [6-45 unit/L] 38 unit/L (06/23/22 10:32 PM) MCHC [31.0-36.0 %] 32.5 % (06/23/22 10:32 PM) Sodium Level [135-150 mmol/L] 135 mmol/L (06/23/22 10:32 PM) Lymph Absolute [1.09-3.58 x10^3/mcL] 1.6 4 x10^3/mcL (06/23/22 10:32 PM) Hct [41.0-51.0 %] 40.0 % *LOW* (06/23/22 10:32 PM) Calcium Level [8.4-10.4 mg/dL] 9.3 mg/dL (06/23/22 10:32 PM) [place] Absolute [0.20-9.50 x10^3/mcL] 1.07 x10^3/mcL (06/23/22 10:32 PM) Albumin Level [3.5-5.2 g/dL] 3.4 g/dL *LOW* (06/23/22 10:32 PM) Protein Total [5.9-8.4 g/dL] 5.3 g/dL *LOW* (06/23/22 10:32 PM) MCH [26.0-33.0 pg] 29.6 pg (06/23/22 10:32 PM) Neutro Absolute [1.54-7.22 x10^3/mcL] 5. 45 x10^3/mcL (06/23/22 10:32 PM) Bilirubin Total [0.2-1.2 mg/dL] 0.6 mg/d L (06/23/22 10:32 PM) Hgb [13.5-17.0 g/dL] 13.0 g/dL *LOW* (06/23/22 10:32 PM) Alk Phos [40-150 unit/L] 34 unit/L *LOW* (06/23/22 10:32 PM) MPV 10 *NA* (06/23/22 10:32 PM) Platelets [130-400 x10^3/mcL] 241 x10^3/ mcL (06/23/22 10:32 PM) CO2 [22-32 mmol/L] 29 mmol/L (06/23/22 10:32 PM) Eos Absolute [0.15-0.50 x10^3/mcL] 1.70 x10^3/mcL *HI* (06/23/22 10:32 PM) eGFR Non-AA [>=60 mL/min/1.73 m2] 37 mL/ min/1.73 m2 *LOW* (06/23/22 10:32 PM) eGFR AA [>=60 mL/min/1.73 m2] 45 mL/min/ 1.73 m2 *LOW* (06/23/22 10:32 PM) Chloride Level [95-110 mmol/L] 95 mmol/L (06/23/22 10:32 PM) Procalcitonin [0.00-0.50 ng/mL] 0.24 ng/ mL (06/23/22 10:32 PM) RDW-CV [11.0-15.0 %] 14.5 % (06/23/22 10:32 PM) A/G Ratio [1.0-2.5 ratio] 1.8 ratio (06/23/22 10:32 PM) BUN/Creat Ratio [6.0-22.0 ratio] 16.7 ra viri (06/23/22 10:32 PM) Globulin [1.5-3.7 g/dL] 1.9 g/dL (06/23/22 10:32 PM) Imm Gran Absolute [0.00-0.09 x10^3/mcL] 0.16 x10^3/mcL *HI* (06/23/22 10:32 PM) Imm Gran Auto [0.00-5.00 %] 1.60 % (06/23/22 10:32 PM) NRBC Auto [0.0-1.0 /100 WBC] 0.0 /100 WB C (06/23/22 10:32 PM) NRBC Absolute 0.00 x10^3/mcL *NA* (06/23/22 10:32 PM) Creatinine Level [0.66-1.25 mg/dL] 1.80 mg/dL *HI* (06/23/22 10:32 PM) Anion Gap [3.0-11.0 mmol/L] 11.0 mmol/L (06/23/22 10:32 PM) D Dimer, (Quant.) [0.00-0.50 mg/L FEU] 3 .96 mg/L FEU 1 *HI* (06/23/22 10:32 PM) Eos, Auto [0.0-7.0 %] 16.8 % *HI* (06/23/22 10:32 PM) ESR, Westergren [0-15 mm/hr] 9 mm/hr (06/23/22 10:32 PM) 1Result Comment: CALLED TO KINA GAGNON/DONA Vital Signs Most recent to oldest [Reference Range]: 1 2 3 Temperature Oral [35.8-37.3 Deg C] 36.1 Deg C (06/23/22 9:29 PM) 36.5 Deg C (06/23/22 9:29 PM) Peripheral Pulse Rate [60-100 bpm] 84 bpm (06/23/22 11:15 PM) 89 bpm (06/23/22 11:00 PM) 88 bpm (06/23/22 10:30 PM) Respiratory Rate [12-24 br/min] 18 br/min (06/23/22 9:29 PM) Blood Pressure [90-140/60-90 mmHg] 129/70mmHg (06/23/22 11:15 PM) 134/71mmHg (06/23/22 11:00 PM) 154/76mmHg *HI* (06/23/22 10:30 PM) Mean Arterial Pressure Cuff 92 mmHg (06/23/22 11:15 PM) 96 mmHg (06/23/22 11:00 PM) 119 mmHg (06/23/22 10:30 PM) Weight 113.30 kg (06/23/22 9:29 PM) 112.70 kg (06/23/22 9:29 PM) Weight Dosing 112.70 kg (06/23/22 10:22 PM) 113.30 kg (06/23/22 10:21 PM) Height 172.720 cm (06/23/22 9:29 PM) 172.000 cm (06/23/22 9:29 PM) Height/Length Dosing 172.000 cm (06/23/22 10:22 PM) 172.720 cm (06/23/22 10:21 PM) Body Mass Index 38.000 kg/m2 (06/23/22 9:29 PM) 38.000 kg/m2 (06/23/22 9:29 PM) Social History Social History Type Response Tobacco Never tobacco user T obacco Use:. Sex Hospital Discharge Instructions Patient Education 06/23/2022 23:18:06 Peripheral Edema Peripheral Edema Peripheral edema is swelling that is caused by a buildup of fluid. Peripheral edema most often affects the lower legs, ankles, and feet. It can also develop in the arms, hands, and face. The area of the body that has peripheral edema will look swollen. It may also feel heavy or warm. Your clothes may start to feel tight. Pressing on the area may make a temporary dent in your skin. You may not be able to move your swollen arm or leg as much as usual. There are many causes of peripheral edema. It can happen because of a complication of other conditions such as congestive heart failure, kidney disease, or a problem with your blood circulation. It also can be a side effect of certain medicines or because of an infection. It often happens to women d uring . Sometimes, the cause is not known. Follow these instructions at home: Managing pain, stiffness, and swelling ??? Raise (elevate) your legs while you are sitting or lying down. ??? Move around often to prevent stiffness and to lessen swelling. ??? Do not sit or stand for long periods of time. ??? Wear support stockings as told by your health care provider. Medicines ??? Take [id number] and prescription medicines only as told by your health care provider. ??? Your health care provider may prescribe medicine to help your body get rid of excess water (diuretic). General instructions ??? Pay attention to any changes in your symptoms. ??? Follow instructions from your health care provider about limiting salt (sodium) in your diet. Sometimes, eating less salt may reduce swelling. ??? Moisturize skin daily to help prevent skin from cracking and draining. ??? Keep all follow-up visits as told by your health care provider. This is important. Contact a health care provider if you have: ??? A fever. ??? Edema that starts suddenly or is getting worse, especially if you are or have a medical condition. ??? Swelling in only one leg. ??? Increased swelling, redness, or pain in one or both of your legs. ??? Drainage or sores at the area where you have edema. Get help right away if you: ??? Develop shortness of breath, especially when you are lying down. ??? Have pain in your chest or abdomen. ??? Feel weak. ??? Feel faint. Summary ??? Peripheral edema is swelling that is caused by a buildup of fluid. Peripheral edema most often affects the lower legs, ankles, and feet. ??? Move around often to prevent stiffness and to lessen swelling. Do not sit or stand for long periods of time. ??? Pay attention to any changes in your symptoms. ??? Contact a health care provider if you have edema that starts suddenly or is getting worse, especially if you are or have a medical condition. ??? Get help right away if you develop shortness of breath, especially when lying down. This information is not intended to replace advice given to you by your health care provider. Make sure you discuss any questions you have with your health care provider. Document Revised: 03/08/2019 Document Reviewed: 03/08/2019 [employer] Patient Education ?? 2021 [employer]. 06/23/2022 23:17:42 D-Dimer Test D-Dimer Test Why am I having this test? The D-dimer test is used to help diagnose or rule out conditions that cause abnormal or excessive blood clotting, such as thrombosis or disseminated intravascular coagulation (DIC). This test may also be used to monitor treatment for a blood clotting disease. What is being tested? This test measures the level of D-dimer in the blood. D-dimer is a substance that is released in the blood when certain chemicals in the body work to break up a blood clot. What kind of sample is taken? A blood sample is required for this test. It is usually collected by inserting a needle into a blood vessel. Tell a health care provider about: ??? Any medical conditions you have. ??? Any recent surgeries you have had. ??? Whether you are or may be . How are the results reported? Your test results will be reported as values. Your health care provider will compare your results to normal ranges that were established after testing a large group of people (reference ranges). Reference ranges may vary among labs and hospitals. For this test, a common reference range is less than0.5 mcg/mL. What do the results mean? A D-dimer level that is higher than the reference range may mean that you have a blood clotting condition, such as: ??? Deep vein thrombosis (DVT). ??? Pulmonary embolism (PE). ??? DIC. ??? Blood clot breakdown (primary fibrinolysis). ??? Arterial thromboembolism. ??? Sickle cell anemia. D-dimer levels can also be raised for other reasons, including: ??? Recent surgery. ??? Certain cancers. ??? . ??? Liver disease. ??? High levels of a protein (rheumatoid factor) that can indicate certain autoimmune disorders. ??? Infection. If you are having the D-dimer test to monitor treatment for a blood clotting disease, a decreased level of D-dimer means that the treatment is working. Talk with your health care provider about what your results mean. Questions to ask your health care provider Ask your health care provider, or the department that is doing the test: ??? When will my results be ready? How will I get my results? What are my treatment options? What other tests do I need? What are my next steps? Summary ??? The D-dimer test is used to help diagnose or rule out conditions that cause abnormal or excessive blood clotting, such as thrombosis or disseminated intravascular coagulation (DIC). ??? This test may also be used to monitor treatment for a blood clotting disease. ??? A blood sample is required for this test. ??? Talk with your health care provider about what your results mean. This information is not intended to replace advice given to you by your health care provider. Make sure you discuss any questions you have with your health care provider. Document Revised: 04/07/2021 Document Reviewed: 04/07/2021 [employer] Patient Education ?? 2021 [employer] Follow Up Care 06/23/2022 21:29:15 With:You have a venous duplex ultrasound of right lower extremity scheduled tomorrow at 8:30 AM. Please report to [facility] registration at 8:15 AM. Address:Unknown When: Unknown With:JARRETT MOHR MSN,[employer]OT[employer] GUEST SERVICE AGENT-BC Address: [address] [place] [address]- When:1 to 2 days Physician Emergency department Note * KINGSLEY MEAD PAC: PERFORM Event Display: ED Note Physician Authored Date: [id number] SILVIO MOYER :1945 Age:77 years Sex:Male Visit Date:06/23/2022 Primary Care Physician: JARRETT MOHR,HOTEL GUEST SERVICE AGENT-BC Basic Information Time Seen: KINGSLEY MEAD PAC / 06/23/2022 21:42 Chief Complaint c/o bilateral knee swelling History Of Present Illness: 77-year-old male presents with right lower leg??swelling.?? 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 Patient was seen in the ER on June 20??after having a reaction to vancomycin.?? Patient was noted to have elevated kidney functions. ??Patient received??epinephrine and Solu-Medrol??which helped resolve patient's rash.?? Patient denies any fever, knee pain, ordrainage from the right knee.?? Patient??is concerned that his right leg is the most??swollen it has been since initial surgery.?? Patient is not on??anticoagulation. Review of Systems: Constitutional: No fever, chills, weakness, fatigue Skin: No rash, pruritus, abrasions, lesions Respiratory: No SOB, cough, wheezing Cardiovascular: No chest pain, palpitations, syncope, peripheral edema Gastrointestinal: No abdominal pain, nausea, vomiting, diarrhea, constipation Musculoskeletal: Positive for right lower leg swelling No back pain, joint pain Neurologic: No headache, dizziness, numbness, tingling Physical Exam Vitals & Measurements T:??36.1?C ??(Oral)?? T:??36.5?C ??(Oral)?? HR:??89??(Peripheral)?? RR:??18?? BP:??134/71??SpO2:??95%?? HT:??172.720??cm?? HT:??172.000??cm?? WT:??113.30??kg?? WT:??112.70??kg?? BMI:??38.000?? BMI:??38.000?? O2 Therapy:??Room air?? General: Alert, no acute distress Skin: Warm, dry, pink, bilateral lower legs are erythematous from recent??vancomycin reaction,??surgical wound over right knee is well??healed Head: Normocephalic, atraumatic Cardiovascular: Regular rate and rhythm, normal peripheral perfusion, 2+ edema right??lower extremity Respiratory: Lungs CTA, non-labored respirations, BS equal, symmetrical expansion Gastrointestinal: Soft, nontender, non distended, normal BS Musculoskeletal: Normal ROM, right posterior calf tenderness to palpation, no deformity Neurological: Normal sensory, normal motor, normal speech Psychiatric: A/O x4, cooperative, normal judgement Medical Decision Making: Differential diagnosis:??DVT,??renal failure,??cellulitis,??claudication ?? Patient's??creatinine has improved??to 1.8 from 2.?? Patient??noted to have elevated D-dimer at 3.96.?? This could be due to DVT, inflammation, or recent renal insufficiency.?? I will give the patient Lovenox 112 mg subcutaneously to cover for potential DVT.?? I have ordered a??venous duplex ultrasound of right lower extremity tomorrow morning??at 8:30 AM to be performed outpatient. Assessment/Plan D-dimer, elevated??R79.89 Ordered: US Lower Ext Venous Duplex Right, *Est. 06/24/22 +/- 2 days, Routine, Reason: leg swelling, elevated dimer, Transport Mode: Ambulatory, Edema of right lower leg Elevated d-dimer ?? Edema of right lower leg??R60.0 Ordered: US Lower Ext Venous Duplex Right, *Est. 06/24/22 +/- 2 days, Routine, Reason: leg swelling, elevated dimer, Transport Mode: Ambulatory, Edema of right lower leg Elevated d-dimer ?? Orders: Lovenox, 112 mg = 0.75 mL, Subcutaneous, Injection, Once, First Dose: 06/23/22 23:12:00 METAL BALER, Stop Date: 06/23/22 23:12:00 METAL BALER, Hard Stop, STAT Discharge Patient - ED, 06/23/22 23:18:00 METAL BALER Patient Discharge Condition Stable Discharge Disposition Home Patient Education Peripheral Edema D-Dimer Test Follow Up With When Contact Information You have a venous duplex ultrasound of right lower extremity scheduled tomorrow at 8:30 AM. Please report to [facility] registration at 8:15 AM. Additional Instructions: JARRETT MOHR MSN,HOT[employer] GUE[employer] SERVICE AGENT-BC Within 1 to 2 days [address] [place] [address]- Additional Instructions: Medication Reconciliation Unchanged acetaminophen (Tylenol 8 HR Arthritis Pain 650 mg oral tablet, extended release)2 tab Oral (given by mouth) every 8 hours as needed as needed for pain. ?? aspirin (aspirin 325 mg oral tablet)1 tab Oral (given by mouth) every day. ?? Durable Medical Equipment for Prescription (Contour Next Test Strips)check blood sugar BID. Refills: 5. ?? Durable Medical Equipment for Prescription (Libre2 sensors)please dispense 2 sensors with a refill.thanks - patient has a coupon card. Refills: 0. ?? glipiZIDE (glipiZIDE 10 mg oral tablet)2 tab Oral (given by mouth) every day. Refills: 1. ?? irbesartan (irbesartan 300 mg oral tablet)1 tab Oral (given by mouth) every day. Refills: 1. ?? levoFLOXacin (!-Levaquin 750 mg oral tablet)1 tab Oral (given by mouth) every 24 hours for 30 Days.Refills: 0. ?? metFORMIN (metFORMIN 1000 mg oral tablet)1 tab Oral (given by mouth) 2 times a day. 1,000 in the morning nothing to 500 mg at night depending on what his numbers are running. Refills: 1. ?? oxyCODONE (oxyCODONE 5 mg oral tablet)2 tab Oral (given by mouth) every 6 hours as needed pain, moderate for 3 Days. Refills: 0. ?? propranolol (propranolol 120 mg oral capsule, extended release)1 Capsules Oral (given by mouth) every day. Refills: 1. ?? sildenafil (sildenafil 25 mg oral tablet)1 tab Oral (given by mouth) every day. 1 hour before sexual activity. Refills: 0. ?? vancomycin (vancomycin 1 g/200 mL-D5% intravenous solution)2 Gram Intravenous every 24 hours for 6 weeks. will [place] recie[place] [facility] [place]. Refills: 0. Problem List/Past Medical History Ongoing Acid reflux Arthritis of left knee Diabetes mellitus type II Erectile dysfunction Gout Hyperlipidemia Hypertension Obesity Osteoarthritis of right knee joint Shoulder joint pain Procedure/Surgical History ???Revision right total knee arthroplasty, irrigation and debridement with exchange of polyethylene. (05/12/2022)???Right total knee arthroplasty. (04/21/2022)???Left total knee arthroplasty. (12/02/2021)???Screening colonoscopy (Repeat 2021) (12/01/2016)???Appendectomy???Cholecystectomy???Removal of cataract Allergies vancomycin??(Acute kidney injury due to nephrotoxicity, [...] MOTHER, at age: Unknown. Cause of : Lab Results CBC and Differential?? LATEST RESULTS?? HISTORICAL RESULTS?? WBC?? 06/23/22 22:32?? 10.1?? 06/20/22?? 10.5?? RBC?? 06/23/22 22:32?? 4.39 ??Low?? 06/20/22?? 4.51?? Hgb?? 06/23/22 22:32?? 13.0 ??Low?? 06/20/22?? 13.3 ??Low?? Hct?? 06/23/22 22:32?? 40.0 ??Low?? 06/20/22?? 40.7 ??Low?? MCV?? 06/23/22 22:32?? 91?? 06/20/22?? 90?? MCH?? 06/23/22 22:32?? 29.6?? 06/20/22?? 29.5?? MCHC?? 06/23/22 22:32?? 32.5?? 06/20/22?? 32.7?? RDW-CV?? 06/23/22 22:32?? 14.5?? 06/20/22?? 14.5?? Platelets?? 06/23/22 22:32?? 241?? 06/20/22?? 235?? MPV?? 06/23/22 22:32?? 10?? 06/20/22?? 10?? Neutro Auto?? 06/23/22 22:32?? 53.7?? 06/20/22?? 62.3?? Lymph Auto?? 06/23/22 22:32?? 16.2 ??Low?? 06/20/22?? 12.4 ??Low?? [place] Auto?? 06/23/22 22:32?? 10.6?? 06/20/22?? 11.2?? Eos, Auto?? 06/23/22 22:32?? 16.8 ??High?? 06/20/22?? 12.8 ??High?? Basophil Auto?? 06/23/22 22:32?? 1.1?? 06/20/22?? 0.8?? Imm Gran Auto?? 06/23/22 22:32?? 1.60?? 06/20/22?? 0.50?? NRBC Auto?? 06/23/22 22:32?? 0.0?? 06/20/22?? 0.0?? Neutro Absolute?? 06/23/22 22:32?? 5.45?? 06/20/22?? 6.56?? Lymph Absolute?? 06/23/22 22:32?? 1.64?? 06/20/22?? 1.30?? [place] Absolute?? 06/23/22 22:32?? 1.07?? 06/20/22?? 1.18?? Eos Absolute?? 06/23/22 22:32?? 1.70 ??High?? 06/20/22?? 1.35 ??High?? Baso Absolute?? 06/23/22 22:32?? 0.11?? 06/20/22?? 0.08?? Imm Gran Absolute?? 06/23/22 22:32?? 0.16 ??High?? 06/20/22?? 0.05?? NRBC Absolute?? 06/23/22 22:32?? 0.00?? 06/20/22?? 0.00? Miscellaneous Hematology?? LATEST RESULTS?? HISTORICAL RESULTS?? ESR, Westergren?? 06/23/22 22:32?? 9?? 03/20/22?? 16 ??High? Coagulation?? LATEST RESULTS?? D Dimer, (Quant.)?? 06/23/22 22:32?? 3.96 ??High? Routine Chemistry?? LATEST RESULTS?? HISTORICAL RESULTS?? Sodium Level?? 06/23/22 22:32?? 135?? 06/22/22?? 136?? Potassium Level?? 06/23/22 22:32?? 5.2?? 06/22/22?? 4.7?? Chloride Level?? 06/23/22 22:32?? 95?? 06/22/22?? 99?? CO2?? 06/23/22 22:32?? 29?? 06/22/22?? 25?? Alk Phos?? 06/23/22 22:32?? 34 ??Low?? 06/20/22?? 36 ??Low?? AST?? 06/23/22 22:32?? 29?? 06/20/22?? 39?? ALT?? 06/23/22 22:32?? 38?? 06/20/22?? 58 ??High?? BUN?? 06/23/22 22:32?? 30 ??High?? 06/22/22?? 31 ??High?? Glucose Level?? 06/23/22 22:32?? 190 ??High?? 06/22/22?? 179 ??High?? Creatinine Level?? 06/23/22 22:32?? 1.80 ??High?? 06/22/22?? 1.80 ??High?? BUN/Creat Ratio?? 06/23/22 22:32?? 16.7?? 06/22/22?? 17.2?? eGFR AA?? 06/23/22 22:32?? 45 ??Low?? 06/22/22?? 45 ??Low?? eGFR Non-AA?? 06/23/22 22:32?? 37 ??Low?? 06/22/22?? 37 ??Low?? Calcium Level?? 06/23/22 22:32?? 9.3?? 06/22/22?? 9.8?? Protein Total?? 06/23/22 22:32?? 5.3 ??Low?? 06/20/22?? 5.6 ??Low?? Albumin Level?? 06/23/22 22:32?? 3.4 ??Low?? 06/20/22?? 3.4 ??Low?? Globulin?? 06/23/22 22:32?? 1.9?? 06/20/22?? 2.1?? A/G Ratio?? 06/23/22 22:32?? 1.8?? 06/20/22?? 1.6?? Bilirubin Total?? 06/23/22 22:32?? 0.6?? 06/20/22?? 0.6?? Anion Gap?? 06/23/22 22:32?? 11.0?? 06/22/22?? 12.0 ??High?? CRP?? 06/23/22 22:32?? 13.2 ??High?? 06/20/22?? 27.9 ??High? Endocrinology?? LATEST RESULTS?? Procalcitonin?? 06/23/22 22:32?? 0.24? Electronically Signed on 06/23/22 11:[address] [facility] Emergency department Discharge instructions * BRADFORD CASTELLANO RN: PERFORM Event Display: ED Discharge Information Authored Date: [id number] SILVIO MOYER :1945 Age:77 years Sex:Male Visit Date:06/23/2022 Primary Care Physician: JARRETT MOHR MSN,[employer] GUEST SERVICE AGENT- Discharge Instructions We would like to thank you for allowing us to assist you with your healthcare needs. The following includes patient education materials and information regarding your injury/illness. Diagnosis from Today's Visit D-dimer, elevated Edema of right lower leg Discharge Vitals Temperature??(Oral) 97.0 ??F (36.1 ??C) Temperature??(Oral) 97.7 ??F (36.5 ??C) Heart Rate??(Peripheral) 89 Respiratory Rate?? 18 Blood Pressure?? 134/71?? Height?? 67.72 in (172.000 cm) Height?? 68.00 in (172.720 cm) Weight?? 248.50 lb (112.70 kg) Weight?? 249.83 lb (113.30 kg) BMI?? 38.000 BMI?? 38.000 Allergies vancomycin??(Acute kidney injury due to nephrotoxicity, Angioedema, Rash) What to Do Next You Need to Schedule the Following Appointments Follow Up with??You have a venous duplex ultrasound of right lower extremity scheduled tomorrow at 8:30 AM. Please report to [facility] registration at 8:15 AM. Follow Up with??JARRETT MOHR MSN,[employer]-BC When:??Within 1 to 2 days Where: [address] [place] [address]- Future Orders US Lower Ext Venous Duplex Right, *Est. 06/24/22 +/- 2 days, Routine, Reason: leg swelling, elevated dimer, Transport Mode: Ambulatory, Edema of right lower leg Elevated d-dimer You were treated today on an emergency basis; it may be powell to contact your primary care provider to notify them of your visit today. You may have been referred to your regular doctor or a specialist, please follow up as instructed. If your condition worsens or you can't get in to see the doctor, contact the Emergency Department. Medications What How Much When Why Instructions Next Dose Unchanged acetaminophen (Tylenol 8 HR Arthritis Pain 650 mg oral tablet, extended release) 2 tab Oral (given by mouth) Every 8 hours as needed for as needed for pain Unchanged aspirin (aspirin 325 mg oral tablet) 1 tab Oral (given by mouth) Every day Unchanged Durable Medical Equipment for Prescription (Contour Next Test Strips) See instructions Diabetes mellitus type II check blood sugar BID ?? Unchanged Durable Medical Equipment for Prescription (Libre2 sensors) See instructions please dispense 2 sensors with a refill. thanks - patient has a coupon card ?? Unchanged glipiZIDE (glipiZIDE 10 mg oral tablet) 2 tab Oral (given by mouth) Every day Unchanged irbesartan (irbesartan 300 mg oral tablet) 1 tab Oral (given by mouth) Every day Unchanged levoFLOXacin (!-Levaquin 750 mg oral tablet) 1 tab Oral (given by mouth) Every 24 hours Duration: 30 Days Unchanged metFORMIN (metFORMIN 1000 mg oral tablet) 1 tab Oral (given by mouth) 2 times a day 1,000 in the morning nothing to 500 mg at night depending on what his numbers are running ?? Unchanged oxyCODONE (oxyCODONE 5 mg oral tablet) 2 tab Oral (given by mouth) Every 6 hours as needed for pain, moderate Duration: 3 Days Unchanged propranolol (propranolol 120 mg oral capsule, extended release) 1 Capsules Oral (given by mouth) Every day Unchanged sildenafil (sildenafil 25 mg oral tablet) 1 tab Oral (given by mouth) Every day 1 hour before sexual activity ?? Unchanged vancomycin (vancomycin 1 g/ 200 mL-D5% intravenous solution) 2 Gram Intravenous Every 24 hours Duration: 6 weeks [place]ie[place] [facility] [place] Education Materials Peripheral Edema Peripheral edema is swelling that is caused by a buildup of fluid. Peripheral edema most often affects the lower legs, ankles, and feet. It can also develop in the arms, hands, and face. The area of the body that has peripheral edema will look swollen. It may also feel heavy or warm. Your clothes may start to feel tight. Pressing on the area may make a temporary dent in your skin. You may not be able to move your swollen arm or leg as much as usual. There are many causes of peripheral edema. It can happen because of a complication of other conditions such as congestive heart failure, kidney disease, or a problem with your blood circulation. It also can be a side effect of certain medicines or because of an infection. It often happens to women d uring . Sometimes, the cause is not known. Follow these instructions at home: Managing pain, stiffness, and swelling ? Raise (elevate) your legs while you are sitting or lying down. ? Move around often to prevent stiffness and to lessen swelling. ? Do not sit or stand for long periods of time. ? Wear support stockings as told by your health care provider. Medicines ? Take [id number]-[id number] and prescription medicines only as told by your health care provider. ? Your health care provider may prescribe medicine to help your body get rid of excess water (diuretic). General instructions ? Pay attention to any changes in your symptoms. ? Follow instructions from your health care provider about limiting salt (sodium) in your diet. Sometimes, eating less salt may reduce swelling. ? Moisturize skin daily to help prevent skin from cracking and draining. ? Keep all follow-up visits as told by your health care provider. This is important. Contact a health care provider if you have: ? A fever. ? Edema that starts suddenly or is getting worse, especially if you are or have a medical condition. ? Swelling in only one leg. ? Increased swelling, redness, or pain in one or both of your legs. ? Drainage or sores at the area where you have edema. Get help right away if you: ? Develop shortness of breath, especially when you are lying down. ? Have pain in your chest or abdomen. ? Feel weak. ? Feel faint. Summary ? Peripheral edema is swelling that is caused by a buildup of fluid. Peripheral edema most often affects the lower legs, ankles, and feet. ? Move around often to prevent stiffness and to lessen swelling. Do not sit or stand for long periodsof time. ? Pay attention to any changes in your symptoms. ? Contact a health care provider if you have edema that starts suddenly or is getting worse, especially if you are or have a medical condition. ? Get help right away if you develop shortness of breath, especially when lying down. This information is not intended to replace advice given to you by your health care provider. Make sure you discuss any questions you have with your health care provider. Document Revised: 03/08/2019 Document Reviewed: 03/08/2019 [employer] Patient Education ?? 2021 [employer]. D-Dimer Test Why am I having this test? The D-dimer test is used to help diagnose or rule out conditions that cause abnormal or excessive blood clotting, such as thrombosis or disseminated intravascular coagulation (DIC). This test may also be used to monitor treatment for a blood clotting disease. What is being tested? This test measures the level of D-dimer in the blood. D-dimer is a substance that is released in the blood when certain chemicals in the body work to break up a blood clot. What kind of sample is taken? A blood sample is required for this test. It is usually collected by inserting a needle into a blood vessel. Tell a health care provider about: ? Any medical conditions you have. ? Any recent surgeries you have had. ? Whether you are or may be . How are the results reported? Your test results will be reported as values. Your health care provider will compare your results to normal ranges that were established after testing a large group of people (reference ranges). Reference ranges may vary among labs and hospitals. For this test, a common reference range is less than0.5 mcg/mL. What do the results mean? A D-dimer level that is higher than the reference range may mean that you have a blood clotting condition, such as: ? Deep vein thrombosis (DVT). ? Pulmonary embolism (PE). ? DIC. ? Blood clot breakdown (primary fibrinolysis). ? Arterial thromboembolism. ? Sickle cell anemia. D-dimer levels can also be raised for other reasons, including: ? Recent surgery. ? Certain cancers. ? . ? Liver disease. ? High levels of a protein (rheumatoid factor) that can indicate certain autoimmune disorders. ? Infection. If you are having the D-dimer test to monitor treatment for a blood clotting disease, a decreased level of D-dimer means that the treatment is working. Talk with your health care provider about what your results mean. Questions to ask your health care provider Ask your health care provider, or the department that is doing the test: ? When will my results be ready? How will I get my results? What are my treatment options? What other tests do I need? What are my next steps? Summary ? The D-dimer test is used to help diagnose or rule out conditions that cause abnormal or excessive blood clotting, such as thrombosis or disseminated intravascular coagulation (DIC). ? This test may also be used to monitor treatment for a blood clotting disease. ? A blood sample is required for this test. ? Talk with your health care provider about what your results mean. This information is not intended to replace advice given to you by your health care provider. Make sure you discuss any questions you have with your health care provider. Document Revised: 04/07/2021 Document Reviewed: 04/07/2021 [employer] Patient Education ?? 2021 [employer] Tests Performed Lab Test Name Test Result Date/Time WBC 10.1 x10^3/mcL 06/23/2022 22:32 [facility] RBC 4.39 x10^6/mcL 06/23/2022 22:32 [facility] Hgb 13.0 g/dL 06/23/2022 22:32 [facility] Hct 40.0 % 06/23/2022 22:32 [facility] MCV 91 fL 06/23/2022 22:32 [facility] MCH 29.6 pg 06/23/2022 22:32 [facility] MCHC 32.5 % 06/23/2022 22:32 [facility] RDW-CV 14.5 % 06/23/2022 22:32 [facility] Platelets 241 x10^3/mcL 06/23/2022 22:32 [facility] MPV 10 06/23/2022 22:32 [facility] Neutro Auto 53.7 % 06/23/2022 22:32 [facility] Lymph Auto 16.2 % 06/23/2022 22:32 [facility] [place] Auto 10.6 % 06/23/2022 22:32 [facility] Eos, Auto 16.8 % 06/23/2022 22:32 [facility] Basophil Auto 1.1 % 06/23/2022 22:32 [facility] Imm Gran Auto 1.60 % 06/23/2022 22:32 [facility] NRBC Auto 0.0 /100 WBC 06/23/2022 22:32 [facility] Neutro Absolute 5.45 x10^3/mcL 06/23/2022 22:32 [facility] Lymph Absolute 1.64 x10^3/mcL 06/23/2022 22:32 [facility] [place] Absolute 1.07 x10^3/mcL 06/23/2022 22:32 [facility] Eos Absolute 1.70 x10^3/mcL 06/23/2022 22:32 [facility] Baso Absolute 0.11 x10^3/mcL 06/23/2022 22:32 [facility] Imm Gran Absolute 0.16 x10^3/mcL 06/23/2022 22:32 [facility] NRBC Absolute 0.00 x10^3/mcL 06/23/2022 22:32 [facility] ESR, Westergren 9 mm/hr 06/23/2022 22:32 [facility] D Dimer, (Quant.) 3.96 mg/L FEU 06/23/2022 22:32 [facility] Sodium Level 135 mmol/L 06/23/2022 22:32 [facility] Potassium Level 5.2 mmol/L 06/23/2022 22:32 [facility] Chloride Level 95 mmol/L 06/23/2022 22:32 [facility] CO2 29 mmol/L 06/23/2022 22:32 [facility] Alk Phos 34 unit/L 06/23/2022 22:32 [facility] AST 29 unit/L 06/23/2022 22:32 [facility] ALT 38 unit/L 06/23/2022 22:32 [facility] BUN 30 mg/dL 06/23/2022 22:32 [facility] Glucose Level 190 mg/dL 06/23/2022 22:32 [facility] Creatinine Level 1.80 mg/dL 06/23/2022 22:32 [facility] BUN/Creat Ratio 16.7 ratio 06/23/2022 22:32 [facility] eGFR AA 45 mL/min/1.73 m2 06/23/2022 22:32 [facility] eGFR Non-AA 37 mL/min/1.73 m2 06/23/2022 22:32 [facility] Calcium Level 9.3 mg/dL 06/23/2022 22:32 [facility] Protein Total 5.3 g/dL 06/23/2022 22:32 [facility] Albumin Level 3.4 g/dL 06/23/2022 22:32 [facility] Globulin 1.9 g/dL 06/23/2022 22:32 [facility] A/G Ratio 1.8 ratio 06/23/2022 22:32 [facility] Bilirubin Total 0.6 mg/dL 06/23/2022 22:32 [facility] Anion Gap 11.0 mmol/L 06/23/2022 22:32 [facility] CRP 13.2 mg/L 06/23/2022 22:32 [facility] Procalcitonin 0.24 ng/mL 06/23/2022 22:32 [facility] Patient/Horse Breaker Signature Patient Name:SILVIO MOYER I have received this information and my questions have been answered. Patient/Horse Breaker Name: Patient/Horse Breaker Signature: Relationship to Patient: Witness Name/Signature: Date: Electronically Signed on: 06/23/2022 23:20 CSTSigned by:YOU Patient Care team information Personnel Name: JARRETT MOHR MSN,[employer] Address: Address: [address] [place] [address]-
--- OUTSIDE RECORDS SUMMARY | 2023-03-20 19:14 | XMS_ITS | Continuity of Care Document ---
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) - 05/13/22 Diabetes mellitus type II(Discharge Diagnosis) - 05/13/22 Hypertension(Discharge Diagnosis) - 05/13/22 DVT prophylaxis(Discharge Diagnosis) - 05/13/22 Discharge Disposition: Home or Self Care Attending Physician: GRZEGORZ VICENTE MD Attending Physician: ASIYA DONATO MD Admitting Physician: GRZEGORZ VICENTE MD Referring Physician: ASIYA DONATO MD Allergies, Adverse Reactions, Alerts No Known Medication Allergies Assessment and Plan Future Appointments Appointment Date:05/16/2022 02:00:00 PM Scheduled Provider: Location:[facility] Appointment Type:IV Med Therapy 90 (REGM) Appointment Date:05/17/2022 01:00:00 PM Scheduled Provider: Location:[facility] Appointment Type:IV Med Therapy 90 (REGM) Appointment Date:05/18/2022 01:00:00 PM Scheduled Provider: Location:[facility] Appointment Type:IV Med Therapy 90 ([facility]M) Appointment Date:05/19/2022 02:00:00 PM Scheduled Provider: Location:[facility] Appointment Type:IV Med Therapy 90 (REGM) Appointment Date:05/20/2022 01:00:00 PM Scheduled Provider: Location:[facility] Appointment Type:IV Med Therapy 90 (REGM) Appointment Date:05/21/2022 01:00:00 PM Scheduled Provider: Location:[facility] Appointment Type:IV Med Therapy 90 (REGM) Appointment Date:05/22/2022 01:00:00 PM Scheduled Provider: Location:[facility] Appointment Type:IV Med Therapy 90 (REGM) Appointment Date:2022 01:00:00 PM Scheduled Provider: Location:[facility] Appointment Type:IV Med Therapy 90 (REGM) Appointment Date:05/24/2022 01:00:00 PM Scheduled Provider: Location:[facility] Appointment Type:IV Med Therapy 90 (REGM) Appointment Date:05/25/2022 01:00:00 PM Scheduled Provider: Location:[facility] Appointment Type:IV Med Therapy 90 (REGM) Appointment Date:05/26/2022 01:00:00 PM Scheduled Provider: Location:[facility] Appointment Type:IV Med Therapy 90 (REGM) Appointment Date:05/27/2022 01:00:00 PM Scheduled Provider: Location:[facility] Appointment Type:IV Med Therapy 90 (REGM) Appointment Date:05/28/2022 01:00:00 PM Scheduled Provider: Location:[facility] Appointment Type:IV Med Therapy 90 (REGM) Appointment Date:05/29/2022 01:00:00 PM Scheduled Provider: Location:[facility] Appointment Type:IV Med Therapy 90 (REGM) Appointment Date:05/30/2022 01:00:00 PM Scheduled Provider: Location:[facility] Appointment Type:IV Med Therapy 90 (REGM) Appointment Date:05/31/2022 01:00:00 PM Scheduled Provider: Location:[facility] Appointment Type:IV Med Therapy 90 (REGM) Appointment Date:06/01/2022 01:00:00 PM Scheduled Provider: Location:[facility] Appointment Type:IV Med Therapy 90 (REGM) Appointment Date:06/02/2022 01:00:00 PM Scheduled Provider: Location:[facility] Appointment Type:IV Med Therapy 90 (REGM) Appointment Date:06/03/2022 01:00:00 PM Scheduled Provider: Location:[facility] Appointment Type:IV Med Therapy 90 (REGM) Appointment Date:06/04/2022 01:00:00 PM Scheduled Provider: Location:[facility] Appointment Type:IV Med Therapy 90 (REGM) Appointment Date:06/05/2022 01:00:00 PM Scheduled Provider: Location:[facility] Appointment Type:IV Med Therapy 90 (REGM) Appointment Date:06/06/2022 01:00:00 PM Scheduled Provider: Location:[facility] Appointment Type:IV Med Therapy 90 (REGM) Appointment Date:06/07/2022 01:00:00 PM Scheduled Provider: Location:[facility] Appointment Type:IV Med Therapy 90 (REGM) Appointment Date:06/08/2022 01:00:00 PM Scheduled Provider: Location:[facility] Appointment Type:IV Med Therapy 90 (REGM) Appointment Date:06/09/2022 01:00:00 PM Scheduled Provider: Location:[facility] Appointment Type:IV Med Therapy 90 (REGM) Appointment Date:06/10/2022 01:00:00 PM Scheduled Provider: Location:[facility] Appointment Type:IV Med Therapy 90 (REGM) Appointment Date:06/11/2022 01:00:00 PM Scheduled Provider: Location:[facility] Appointment Type:IV Med Therapy 90 (REGM) Appointment Date:06/12/2022 01:00:00 PM Scheduled Provider: Location:[facility] Appointment Type:IV Med Therapy 90 (REGM) Appointment Date:06/13/2022 01:00:00 PM Scheduled Provider: Location:[facility] Appointment Type:IV Med Therapy 90 (REGM) Appointment Date:06/14/2022 01:00:00 PM Scheduled Provider: Location:[facility] Appointment Type:IV Med Therapy 90 (REGM) Appointment Date:06/15/2022 01:00:00 PM Scheduled Provider: Location:[facility] Appointment Type:IV Med Therapy 90 (REGM) Appointment Date:06/16/2022 01:00:00 PM Scheduled Provider: Location:[facility] Appointment Type:IV Med Therapy 90 (REGM) Appointment Date:06/17/2022 01:00:00 PM Scheduled Provider: Location:[facility] Appointment Type:IV Med Therapy 90 (REGM) Appointment Date:06/18/2022 01:00:00 PM Scheduled Provider: Location:[facility] Appointment Type:IV Med Therapy 90 (REGM) Appointment Date:06/19/2022 01:00:00 PM Scheduled Provider: Location:[facility] Appointment Type:IV Med Therapy 90 (REGM) Appointment Date:06/20/2022 01:00:00 PM Scheduled Provider: Location:[facility] Appointment Type:IV Med Therapy 90 (REGM) Appointment Date:06/21/2022 01:00:00 PM Scheduled Provider: Location:[facility] Appointment Type:IV Med Therapy 90 (REGM) Appointment Date:06/22/2022 01:00:00 PM Scheduled Provider: Location:[facility] Appointment Type:IV Med Therapy 90 (REGM) Diagnostic Tests Pending * Culture, Anaerobic MB WCL 05/12/22 * Culture, Anaerobic MB WCL 05/12/22 * Culture, Anaerobic MB WCL 05/12/22 * Culture, Anaerobic MB WCL 05/12/22 Future Scheduled Tests Laboratory* Vancomycin Lvl Trough 05/18/22 Functional Status 05/15/22 Current Home Treatments IV therapy [facility] Physical T herapy 05/15/22 Dinner Percent 25 05/15/22 Lunch Percent 100 05/15/22 Activity Status ADL Ambulating in room, Up ad lenny, Up to chair 05/15/22 Breakfast Percent 100 05/15/22 Ambulation Patient Effort Good 05/15/22 Anti-Embolism Device Activity: In place Anti-Embolism Site Condition: No complic ations 05/14/22 Ambulation Minutes 5 05/14/22 Assistive Device Walker 05/14/22 ADLs Minimal assistance 05/13/22 Lifting Equipment Gait belt 05/13/22 Anti-Embolism Device Removal Reason: Act ivity 05/13/22 Living Environment Home Environment *ADL: Independent Performed By: MAYA GONZALES CLT 05/13/2022 *Cognitive-Communication Skills: Independent Performed By: MAYA GONZALES CLT 05/13/2022 *Instrumental ADL: Independent Performed By: MAYA GONZALES CLT 05/13/2022 *Mobility: Independent Performed By: MAYA GONZALES CLT 05/13/2022 Anticipated Need for Home Modification: No Performed By: MAYA GONZALES CLT 05/13/2022 Detail Areas of Responsibilities: Pt states his has a disc bulge in her back and so is more debilitated than he is. His son is staying with her while he is in the hospital. 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, Health and wellness, Leisure/Play/Hobbies, Manage Medications, Passenger, Personal ADL, Retired, Shopping, Social participation Performed By: MAYA GONZALES,[facility] 05/13/2022 Lives With Spouse Living Situation Home independently Patient's Responsibilities Rehab 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, Community Support Specialist, 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 His son is staying with her while he is in the hospital. Home Equipment Rehab Rolling walker Number of Stairs Inside 0 Number of Stairs Outside 0 Location Bed 1st floor Location Main Bathroom 1st floor 1 Location Kitchen 1st floor Location Laundry 1st floor Prior ADL Status Independent Prior Mobility Status Independent Prior Instrumental ADL Level Independent Prior Cognitive-Communication Skills Ind ependent 05/13/22 Anticipated Need for Home Modification N o 05/13/22 Personal Care Provided Oral care 05/12/22 Antiembolism Device Graduated compressio n stockings, knee high, left Other exposure to Infectious Disease Non e 1Result Comment: walk in shower with bars and seat Immunizations Given and Recorded Vaccine Date Status [...] Instructions, # 100 EA, 5 Refill(s), Pharmacy: [facility] Start Date: 07/01/21 Status: Ordered glipiZIDE 10 mg oral tablet 5 mg = 0.5 tab, Oral, Daily, # 180 tab, 1 Refill(s), Pharmacy: [facility], 172, cm, 12/03/21 13:07:00 CDT, Height/Length Dosing, 112, kg, 12/03/21 13:07:00 CDT, Weight Dosing Start Date: 01/23/22 Status: Ordered irbesartan 300 mg oral tablet 1 tab, Oral, Daily, # 90 tab, 1 Refill(s), Pharmacy: [facility], 172, [...] activity, # 10 tab, 0 Refill(s), Pharmacy: [facility] Start Date: 07/01/21 Status: Ordered Tylenol 8 HR Arthritis Pain 650 mg oral tablet, extended release 1,300 mg = 2 tab, Oral, every 8 hr, PRN as needed for pain Start Date: 04/22/22 Status: Ordered vancomycin 1 g/200 mL-D5% intravenous solution 2 g =, IV, every 24 hr, will be recieving through the [facility] Outpatient infusion clinic, # 42 EA, 0 Refill(s), other reason (Rx) Start Date: 05/15/22 Stop Date: 06/26/22 Status: Ordered Mental Status 05/14/22 Eye Opening Response Clinton Spontaneous ly Best Verbal Response Clinton Oriented Best Motor Response Clinton Obeys comman ds Patrica Coma Score 15 Problem List Condition Confirmation [...] Confirmed Active 1Records from Dr. Riley Diane, [facility] 2Records from Dr. Riley Diane, [facility] 3Records from Dr. Riley Diane, [facility] 4Records from Dr. Riley Diane, [facility] 5Records from Dr. Riley Diane, [facility] Procedures Procedure Date Related Diagnosis Body Site Status Right total knee arthroplasty. 04/21/22 Completed Left total knee arthroplasty. 12/02/21 Completed Screening colonoscopy (Repeat 2021) 1 12/01/16 Completed Appendectomy 2 Completed Cholecystectomy 3 Complet ed Removal of cataract 4 Com pleted 12 mm sessile polyp Records from Dr. Riley Diane, [facility] 2Records from Dr. Riley Diane, [facility] 3Records from Dr. Riley Diane, [facility] 4Records from Dr. Riley Diane, [facility] Results Laboratory List Name Date Glucose POCT 05/15/22 Vancomycin Lvl Trough 05/15/22 Automated Diff 05/15/22 C-Reactive Protein 05/15/22 CBC w/ Diff 05/15/22 Comprehensive Metabolic Panel (CMP) 04/28 02/16 Glucose POCT 05/14/22 Glucose POCT 05/14/22 Hemoglobin 05/14/22 Vancomycin Lvl Trough 05/13/22 C-Reactive Protein 05/13/22 Creatinine 05/13/22 Vancomycin Lvl 05/13/22 Hemoglobin 05/13/22 Most recent to oldest [Reference Range]: 1 2 3 WBC [4.0-10.5 x10^3/mcL] 7.2 x10^3/mcL (05/15/22 5:15 AM) RBC [4.40-5.80 x10^6/mcL] 3.86 x10^6/mcL *LOW* (05/15/22 5:15 AM) Neutro Auto [40.0-75.0 %] 58.0 % (05/15/22 5:15 AM) Lymph Auto [19.0-45.0 %] 30.2 % (05/15/22 5:15 AM) [place] Auto [1.0-13.0 %] 8.5 % (05/15/22 5:15 AM) Basophil Auto [0.0-2.0 %] 0.6 % (05/15/22 5:15 AM) BUN [6-20 mg/dL] 18 mg/dL (05/15/22 5:15 AM) Glucose POC [70-100 mg/dL] 152 mg/dL *HI* (05/15/22 11:01 AM) 151 mg/dL *HI* (05/14/22 8:42 PM) 120 mg/dL *HI* (05/14/22 5:12 PM) Glucose Level [70-100 mg/dL] 125 mg/dL *HI* (05/15/22 5:15 AM) Potassium Level [3.5-5.5 mmol/L] 4.3 mmol/L (05/15/22 5:15 AM) Baso Absolute [0.00-0.20 x10^3/mcL] 0.04 x10^3/mcL (05/15/22 5:15 AM) Vanco Tr [10.0-20.0 mcg/mL] 12.6 mcg/mL (05/15/22 9:59 AM) <5.0 mcg/mL *LOW* (05/13/22 3:40 PM) MCV [78-100 fL] 92 fL (05/15/22 5:15 AM) CRP [0.0-5.0 mg/L] 11.5 mg/L *HI* (05/15/22 5:15 AM) 11.7 mg/L *HI* (05/13/22 10:24 AM) AST [0-41 unit/L] 21 unit/L (05/15/22 5:15 AM) ALT [6-45 unit/L] 18 unit/L (05/15/22 5:15 AM) MCHC [31.0-36.0 %] 31.8 % (05/15/22 5:15 AM) Sodium Level [135-150 mmol/L] 135 mmol/L (05/15/22 5:15 AM) Vancomycin Level Random 6.4 mcg/mL *NA* (05/13/22 10:24 AM) Lymph Absolute [1.09-3.58 x10^3/mcL] 2.18 x10^3/mcL (05/15/22 5:15 AM) Hct [41.0-51.0 %] 35.5 % *LOW* (05/15/22 5:15 AM) Calcium Level [8.4-10.4 mg/dL] 8.2 mg/dL *LOW* (05/15/22 5:15 AM) [place] Absolute [0.20-9.50 x10^3/mcL] 0.61 x10^3/mcL (05/15/22 5:15 AM) Albumin Level [3.5-5.2 g/dL] 3.3 g/dL *LOW* (05/15/22 5:15 AM) Protein Total [5.9-8.4 g/dL] 5.3 g/dL *LOW* (05/15/22 5:15 AM) MCH [26.0-33.0 pg] 29.3 pg (05/15/22 5:15 AM) Neutro Absolute [1.54-7.22 x10^3/mcL] 4.19 x10^3/mcL (05/15/22 5:15 AM) Bilirubin Total [0.2-1.2 mg/dL] 0.3 mg/dL (05/15/22 5:15 AM) Hgb [13.5-17.0 g/dL] 11.3 g/dL *LOW* (05/15/22 5:15 AM) 11.3 g/dL *LOW* (05/14/22 5:15 AM) 11.3 g/dL *LOW* (05/13/22 5:15 AM) Alk Phos [40-150 unit/L] 30 unit/L *LOW* (05/15/22 5:15 AM) MPV 10 *NA* (05/15/22 5:15 AM) Platelets [130-400 x10^3/mcL] 237 x10^3/mcL (05/15/22 5:15 AM) CO2 [22-32 mmol/L] 26 mmol/L (05/15/22 5:15 AM) Eos Absolute [0.15-0.50 x10^3/mcL] 0.15 x10^3/mcL (05/15/22 5:15 AM) eGFR Non-AA [>=60 mL/min/1.73 m2] 94 mL/min/1.73 m2 (05/15/22 5:15 AM) 73 mL/min/1.73 m2 (05/13/22 10:24 AM) eGFR AA [>=60 mL/min/1.73 m2] 114 mL/min/1.73 m2 (05/15/22 5:15 AM) 88 mL/min/1.73 m2 (05/13/22 10:24 AM) Chloride Level [95-110 mmol/L] 103 mmol/L (05/15/22 5:15 AM) RDW-CV [11.0-15.0 %] 14.9 % (05/15/22 5:15 AM) A/G Ratio [1.0-2.5 ratio] 1.7 ratio (05/15/22 5:15 AM) BUN/Creat Ratio [6.0-22.0 ratio] 22.5 ratio *HI* (05/15/22 5:15 AM) Globulin [1.5-3.7 g/dL] 2.0 g/dL (05/15/22 5:15 AM) Imm Gran Absolute [0.00-0.09 x10^3/mcL] 0.04 x10^3/mcL (05/15/22 5:15 AM) Imm Gran Auto [0.00-5.00 %] 0.60 % (05/15/22 5:15 AM) NRBC Auto [0.0-1.0 /100 WBC] 0.0 /100 WBC (05/15/22 5:15 AM) NRBC Absolute 0.00 x10^3/mcL *NA* (05/15/22 5:15 AM) Creatinine Level [0.66-1.25 mg/dL] 0.80 mg/dL (05/15/22 5:15 AM) 1.00 mg/dL (05/13/22 10:24 AM) Anion Gap [3.0-11.0 mmol/L] 6.0 mmol/L (05/15/22 5:15 AM) Eos, Auto [0.0-7.0 %] 2.1 % (05/15/22 5:15 AM) Orders for Microbiology Reports Name Date Culture, Exudate Aerobic MB WCL 05/12/22 Culture, Exudate Aerobic MB WCL 05/12/22 Culture, Exudate Aerobic MB WCL 05/12/22 Culture, Exudate Aerobic MB WCL 05/12/22 Microbiology Reports TEST:Culture, Exudate Aerobic MB WCL STATUS:Auth (Verified) BODY SITE:Right Knee SOURCE:Tissue MB WCL COLLECTED DATE/TIME:05/12/22 3:08 PM FINAL REPORT No pathogens. TEST:Culture, Exudate Aerobic MB WCL STATUS:Auth (Verified) BODY SITE:Right Knee SOURCE:Tissue MB WCL COLLECTED DATE/TIME:05/12/22 3:06 PM FINAL REPORT No growth. STAIN REPORT Few wbcs, no bacteria seen. TEST:Culture, Exudate Aerobic MB WCL STATUS:Auth (Verified) BODY SITE:Right Knee SOURCE:Tissue MB WCL COLLECTED DATE/TIME:05/12/22 3:04 PM FINAL REPORT No growth. STAIN REPORT Few wbcs, no bacteria seen. TEST:Culture, Exudate Aerobic MB WCL STATUS:Auth (Verified) BODY SITE:Right Knee SOURCE:Exudate MB WCL COLLECTED DATE/TIME:05/12/22 2:57 PM FINAL REPORT Few Gram positive cocci present. 05/14/2022 Critical result called to and read back by Diana High on 05/14/2022 at 9:47 AM by [facility]. Staphylococcus epidermidis Staphylococcus epidermidis STAIN REPORT Few wbcs, no bacteria seen. ORGANISM:Staphylococcus epidermidis Vital Signs Most recent to oldest [Reference Range]: 1 2 3 Temperature Oral [35.8-37.3 Deg C] 36.4 Deg C (05/15/22 10:31 AM) 36.4 Deg C (05/15/22 7:13 AM) 36.4 Deg C (05/15/22 4:00 AM) Temperature Oral (DegF) [96.4-99.1 Deg F] 97.52 Deg F (05/15/22 10:31 AM) 97.52 Deg F (05/15/22 7:13 AM) 97.52 Deg F (05/15/22 4:00 AM) Temperature Temporal Artery [36-38 Deg C] 35.7 Deg C *LOW* (05/12/22 4:25 PM) 35.7 Deg C *LOW* (05/12/22 12:06 PM) Peripheral Pulse Rate [60-100 bpm] 76 bpm (05/15/22 4:19 PM) 75 bpm (05/15/22 10:31 AM) 73 bpm (05/15/22 7:13 AM) Heart Rate Monitored [60-100 bpm] 75 bpm (05/15/22 10:31 AM) 73 bpm (05/15/22 7:13 AM) 72 bpm (05/15/22 4:00 AM) Respiratory Rate [12-24 br/min] 16 br/min (05/15/22 4:19 PM) 16 br/min (05/15/22 10:31 AM) 18 br/min (05/15/22 7:13 AM) Blood Pressure [90-140/60-90 mmHg] 165/97mmHg *HI* (05/15/22 4:19 PM) 123/62mmHg (05/15/22 10:31 AM) 165/94mmHg *HI* (05/15/22 7:13 AM) Mean Arterial Pressure, Cuff [65-140 mmHg] 120 mmHg (05/15/22 4:19 PM) 82 mmHg (05/15/22 10:31 AM) 118 mmHg (05/15/22 7:13 AM) Mean Arterial Pressure Cuff 82 mmHg (05/15/22 10:31 AM) 118 mmHg (05/15/22 7:13 AM) 120 mmHg (05/15/22 4:00 AM) Blood Pressure Location Right leg (05/15/22 10:31 AM) Right arm (05/15/22 7:13 AM) Right arm (05/15/22 12:07 AM) Blood Pressure Method Automatic (05/15/22 10:31 AM) Automatic (05/15/22 7:13 AM) Automatic (05/15/22 12:07 AM) Weight 106.400 kg (05/15/22 6:24 PM) 106.400 kg (05/12/22 7:01 PM) 106.900 kg (05/12/22 12:06 PM) Weight Dosing 106.400 kg (05/15/22 6:24 PM) 106.400 kg (05/12/22 7:01 PM) 106.900 kg (05/12/22 12:06 PM) Height 172.080 cm (05/15/22 6:24 PM) 172.080 cm (05/12/22 7:01 PM) 172.080 cm (05/12/22 12:06 PM) Height/Length Dosing 172.080 cm (05/15/22 6:24 PM) 172.080 cm (05/12/22 7:01 PM) 172.080 cm (05/12/22 12:06 PM) Body Mass Index 35.930 kg/m2 (05/15/22 6:24 PM) 35.930 kg/m2 (05/12/22 7:01 PM) 36.100 kg/m2 (05/12/22 12:06 PM) Social History Social History Type Response Smoking Status Never (less than 100 in lifetime) entered on: 06/16/21 Sex Hospital Discharge Instructions Patient Education 05/15/2022 12:57:44 Prosthetic Joint Infection Prosthetic Joint Infection A prosthetic joint infection is a bacterial infection that occurs near or inside an artificial (prosthetic) joint. This is a possible complication for a person who has had a procedure to replace a damaged or diseased joint with a prosthetic joint (joint replacement surgery). It is difficult for thebody's defense system (immune system) to fight an infection in or around the metal and plastic of a prosthetic joint. Infection can occur soon after surgery or years later. Most infections occur within the first year after surgery. What are the causes? This condition is caused by bacteria at the joint. Bacteria can reach and infect a prosthetic joint: ??? Through a break in the skin. ??? During the first joint surgery. ??? During a procedure to repair a prosthetic joint. ??? Through a bloodstream infection, including bacteria that get into the blood from: ??? Dental surgery. ??? Pneumonia or a urinary tract infection. ??? A tube placed into the body for medical reasons (catheter). ??? Another surgery, especially for the intestines or urinary tract. What increases the risk? You are more likely to develop this condition if: ??? Your immune system is weak because of a long-term disease, such as HIV, cancer, or diabetes. ??? You have treatments or take medicine that slows down your immune system, such as chemotherapy or corticosteroids. ??? You fall on the prosthetic joint. ??? You have a condition that causes poor circulation, such as peripheral vascular disease. ??? You are an older adult. ??? You have poor nutrition. ??? You are very overweight. ??? You smoke. What are the signs or symptoms? The main symptom of this condition is new pain in the area of the affected joint. Other symptoms may include: ??? Stiffness. ??? Swelling. ??? Warmth and redness. ??? Drainage through the skin over the joint. ??? Fever and chills. ??? Tiredness. ??? Night sweats. How is this diagnosed? This condition may be diagnosed based on: ??? Your signs and symptoms. ??? A physical exam. ??? X-rays or other imaging tests of the joint, such as a bone scan. ??? Blood tests. ??? A procedure to remove fluid from the joint with a long needle (aspiration). The fluid will be checked for bacteria and for other signs of infection. How is this treated? Treatment for this condition depends on the severity of the infection and how early it is identified. The infection may be treated with: ??? Antibiotic medicines. Antibiotics may be used to treat an infection that is found early or an infection that is around but not inside the joint. The medicine may be taken by mouth or given by IV. ??? Surgery. This will be needed for severe infections, infections that are not found early, or infections that do not improve with IV antibiotics. The surgery may involve: ??? Removing infected tissue from the joint area and cleaning the artificial joint (debridement). ??? A two-stage surgery that includes: ??? Removing the prosthetic joint and replacing it with a temporary joint that is filled with antibiotics for 2???4 months (spacer joint). ??? Placing a new prosthetic joint after the infection is controlled. ??? A one-stage surgery that includes removing the prosthetic joint and replacing it with a new oneat the same time. ??? Removing the prosthetic joint and leaving it out (resection). This would only be done for very severe cases. As a last resort, all of the infected bone and tissue may be removed (amputation). Follow these instructions at home: Medicines ??? Take your antibiotic medicine as told by your health care provider. Do not stop taking the antibiotic even if you start to feel better. ??? Take [id number] and prescription medicines only as told by your health care provider. General instructions ??? Return to your normal activities as told by your health care provider. Ask your health care provider what activities are safe for you. ??? Do not use any products that contain nicotine or tobacco, such as cigarettes, e-cigarettes, andchewing tobacco. These can delay healing. If you need help quitting, ask your health care provider. ??? If you have diabetes, work with your health care provider to control your blood sugar. ??? Tell your health care provider if you plan to have dental work. Also: ??? Tell your dentist about your joint replacement. ??? Ask your health care provider if there are any special instructions you need to follow before having dental care and routine cleanings. ??? Keep all follow-up visits. This is important. Where to find more information ??? [employer]: www.orthoinfo.aaos.org Contact a health care provider if you have: ??? A bad smell coming from a wound or incision near your prosthetic joint. ??? Redness, warmth, or drainage of fluid near your prosthetic joint. ??? New stiffness or swelling in your prosthetic joint. ??? Chills, a fever, or night sweats. ??? Any new pain in your prosthetic joint. Get help right away if you have: ??? Severe pain. ??? Trouble breathing or chest pain. ??? Redness, swelling, pain, and warmth in your calf or leg. These symptoms may represent a serious problem that is an emergency. Do not wait to see if the symptoms will go away. Get medical help right away. Call your local emergency services (911 in the [place] Do not drive yourself to the hospital. Summary ??? A prosthetic joint infection is an infection that occurs near or inside an artificial joint. ??? A prosthetic joint infection is caused by bacteria that reach the joint. ??? Infection can occur soon after surgery or years later. ??? The main symptom of a prosthetic joint infection is new pain in the area of the affected joint. ??? Treatment for this condition depends on the severity of the infection and how early it is identified. This information is not intended to replace advice given to you by your health care provider. Make sure you discuss any questions you have with your health care provider. Document Revised: 11/14/2020 Document Reviewed: 11/14/2020 [employer] Patient Education ?? 2021 [employer]. Follow Up Care 05/08/2022 08:24:06 With:ASIYA DONATO MD Address: [address] [place] [phone] When:05/19/2022 12:28:00 Comments:at the [facility] Discharge instructions * DANIEL ERICKSON RN: PERFORM Event Display: Discharge Instructions Authored Date: [id number] SILVIO MOYER :1945 Age:76 years Sex:Male Visit Date:05/12/2022 Primary Care Physician: JARRETT MOHR MSN,[facility] Discharge Instructions We would like to [...] Orders Discharge Activity Restrictions, Activity as tolerated. Fall precautions. Wear immobilizer to the Rknee with MIGUELITO wrap whenever out of bed. Use walker. Keep dressing intact to the R knee. Sponge bathuntil Dr. Donato releases you to shower. Discharge Diet Instruction, Consistent Carbohydrate [id number] nicolette, Diabetic, low sodium diet. Discharge Patient Instructions, Discharge contact the doctor if: Fever, chills, chest pain, abdominal pain, nausea vomiting or diarrhea, unrelieved constipation, black or bloody stools, shortness of breath, fainting or near fainting, mental status changes or other concerns. Discharge Patient Instructions, COVID Status Instructions: Pre-admission COVID testing negative. Discharge Patient Instructions, Intersperse periods of rest with periods of walking and activity. Monitor bowel and bladder elimination pattern. Keep stools soft and regular. May use [id number]-[id number]-[id number] or other laxative/stool softener as needed per package directions. Discharge Patient Instructions, Follow diabetic diet closely. Monitor blood sugars as prior to hospitalization. Contact your doctor if blood sugars greater than 350 mg/dL Discharge Patient Instructions, Keep PICC Line clean and dry. Nursing to instruct on home care of PICC. Plan for weekly dressing changes - notify us immediately if dressing is not occlusive. Wrap lightly to protect prior to discharge. Discharge Respiratory Care, Monitor respiratory status. Contact provider or seek medical attention if you experience shortness or breath or difficulty breathing. Discharge Patient Instructions, plan for daily IV Vancomycin infusion through the [facility]. First dose with be Wednesday05/16/22 at 2 pm in the Emergency Department. Next dose Wednesday05/17/22 at 1 pm in the Emergency Department. s dose with be at 1 pm at the procedure center. Scheduled Future Appointments Wednesday 2:00 PM [facility] ?? Where: [facility] Status: Confirmed Wednesday 1:00 PM [facility] ?? Where: [facility] Status: Confirmed Wednesday 1:00 PM [facility] [employer] ?? Where: [facility] Status: Confirmed Wednesday 10:15 AM [facility] ?? With: DON TRIPP Where: [facility] Status: Confirmed Wednesday 1:00 PM [employer] [employer] ?? With: IDANIA MCNULTY PT,DPT Where: [facility] [address] [place] [phone] Status: Confirmed Wednesday 2:00 PM [facility] [employer] ?? Where: [facility] Status: Confirmed Wednesday 1:00 PM [facility] [employer] ?? Where: [facility] Status: Confirmed 2021 1:00 PM [facility] [employer] ?? Where: [facility] Status: Confirmed Wednesday 1:00 PM [facility] [employer] ?? Where: [facility] Status: Confirmed Wednesday 1:00 PM [facility] [employer] ?? Where: [facility] Status: Confirmed Wednesday 1:00 PM [employer] [facility] [employer] ?? Where: [facility] Status: Confirmed Wednesday 1:00 PM [employer] [facility] [employer] ?? Where: [facility] Status: Confirmed Wednesday 9:15 AM [employer] [employer] ?? With: ASIYA DONATO MD Where[facility] Status: Confirmed Medications What How Much When Why Instructions Next Dose New vancomycin (vancomycin 1 g/ 200 mL-D5% intravenous solution) 2 Gram Intravenous Every 24 hours Duration: 6 weeks will be recieving through the [facility] Outpatient infusion clinic ?? 05/16 @ 2:00 PM Unchanged acetaminophen (Tylenol 8 HR Arthritis Pain 650 mg oral tablet, extended release) 2 tab Oral (given by mouth) Every 8 hours as needed for as needed for pain anytime if needed Unchanged aspirin (aspirin 325 mg oral tablet) 1 tab Oral (given by mouth) Every day 05/16 AM Unchanged glipiZIDE (glipiZIDE 10 mg oral tablet) 0.5 tab Oral (given by mouth) Every day 05/16 AM Unchanged irbesartan (irbesartan 300 mg oral tablet) 1 tab Oral (given by mouth) Every day 05/16 AM Unchanged metFORMIN (metFORMIN 1000 mg oral tablet) 1 tab Oral (given by mouth) 2 times a day 1,000 in the morning nothing to 500 mg at night depending on what his numbers are running ?? 05/15 @ 6:00 PM Unchanged oxyCODONE (oxyCODONE 5 mg oral tablet) 2 tab Oral (given by mouth) Every 6 hours as needed for pain, moderate Duration: 3 Days anytime if needed Unchanged propranolol (propranolol 120 mg oral capsule, extended release) 1 Capsules Oral (given by mouth) Every day 05/16 AM Unchanged sildenafil (sildenafil 25 mg oral tablet) 1 tab Oral (given by mouth) Every day 1 hour before sexual activity ?? when needed Your Summary Your Diagnosis Infection of prosthetic right knee joint Discharge Vitals Temperature??(Oral) 97.5 ??F (36.4 ??C) Heart Rate??(Peripheral) 75 Heart Rate??(Monitored) 75 Respiratory Rate?? 16 Blood Pressure?? 123/62?? Immunizations This Visit Influenza Vaccine Not Given because??Influenza vaccine not offered due to contraindication. Education Materials Prosthetic Joint Infection A prosthetic joint infection is a bacterial infection that occurs near or inside an artificial (prosthetic) joint. This is a possible complication for a person who has had a procedure to replace a damaged or diseased joint with a prosthetic joint (joint replacement surgery). It is difficult for thebody's defense system (immune system) to fight an infection in or around the metal and plastic of a prosthetic joint. Infection can occur soon after surgery or years later. Most infections occur within the first year after surgery. What are the causes? This condition is caused by bacteria at the joint. Bacteria can reach and infect a prosthetic joint: ? Through a break in the skin. ? During the first joint surgery. ? During a procedure to repair a prosthetic joint. ? Through a bloodstream infection, including bacteria that get into the blood from: ? Dental surgery. ? Pneumonia or a urinary tract infection. ? A tube placed into the body for medical reasons (catheter). ? Another surgery, especially for the intestines or urinary tract. What increases the risk? You are more likely to develop this condition if: ? Your immune system is weak because of a long-term disease, such as HIV, cancer, or diabetes. ? You have treatments or take medicine that slows down your immune system, such as chemotherapy or corticosteroids. ? You fall on the prosthetic joint. ? You have a condition that causes poor circulation, such as peripheral vascular disease. ? You are an older adult. ? You have poor nutrition. ? You are very overweight. ? You smoke. What are the signs or symptoms? The main symptom of this condition is new pain in the area of the affected joint. Other symptoms may include: ? Stiffness. ? Swelling. ? Warmth and redness. ? Drainage through the skin over the joint. ? Fever and chills. ? Tiredness. ? Night sweats. How is this diagnosed? This condition may be diagnosed based on: ? Your signs and symptoms. ? A physical exam. ? X-rays or other imaging tests of the joint, such as a bone scan. ? Blood tests. ? A procedure to remove fluid from the joint with a long needle (aspiration). The fluid will be checked for bacteria and for other signs of infection. How is this treated? Treatment for this condition depends on the severity of the infection and how early it is identified. The infection may be treated with: ? Antibiotic medicines. Antibiotics may be used to treat an infection that is found early or an infection that is around but not inside the joint. The medicine may be taken by mouth or given by IV. ? Surgery. This will be needed for severe infections, infections that are not found early, or infections that do not improve with IV antibiotics. The surgery may involve: ? Removing infected tissue from the joint area and cleaning the artificial joint (debridement). ? A two-stage surgery that includes: ? Removing the prosthetic joint and replacing it with a temporary joint that is filled with antibiotics for 2???4 months (spacer joint). ? Placing a new prosthetic joint after the infection is controlled. ? A one-stage surgery that includes removing the prosthetic joint and replacing it with a new one at the same time. ? Removing the prosthetic joint and leaving it out (resection). This would only be done for very severe cases. As a last resort, all of the infected bone and tissue may be removed (amputation). Follow these instructions at home: Medicines ? Take your antibiotic medicine as told by your health care provider. Do not stop taking the antibiotic even if you start to feel better. ? Take uoyl-cmj-swfpgul and prescription medicines only as told by your health care provider. General instructions ? Return to your normal activities as told by your health care provider. Ask your health care provider what activities are safe for you. ? Do not use any products that contain nicotine or tobacco, such as cigarettes, e- cigarettes, and chewing tobacco. These can delay healing. If you need help quitting, ask your health care provider. ? If you have diabetes, work with your health care provider to control your blood sugar. ? Tell your health care provider if you plan to have dental work. Also: ? Tell your dentist about your joint replacement. ? Ask your health care provider if there are any special instructions you need to follow before having dental care and routine cleanings. ? Keep all follow-up visits. This is important. Where to find more information ? [employer]: www.orthoinfo.aaos.org Contact a health care provider if you have: ? A bad smell coming from a wound or incision near your prosthetic joint. ? Redness, warmth, or drainage of fluid near your prosthetic joint. ? New stiffness or swelling in your prosthetic joint. ? Chills, a fever, or night sweats. ? Any new pain in your prosthetic joint. Get help right away if you have: ? Severe pain. ? Trouble breathing or chest pain. ? Redness, swelling, pain, and warmth in your calf or leg. These symptoms may represent a serious problem that is an emergency. Do not wait to see if the symptoms will go away. Get medical help right away. Call your local emergency services (911 in the [place] Do not drive yourself to the hospital. Summary ? A prosthetic joint infection is an infection that occurs near or inside an artificial joint. ? A prosthetic joint infection is caused by bacteria that reach the joint. ? Infection can occur soon after surgery or years later. ? The main symptom of a prosthetic joint infection is new pain in the area of the affected joint. ? Treatment for this condition depends on the severity of the infection and how early it is identified. This information is not intended to replace advice given to you by your health care provider. Make sure you discuss any questions you have with your health care provider. Document Revised: 11/14/2020 Document Reviewed: 11/14/2020 [employer] Patient Education ?? 2021 [employer] Medication Information vancomycin (injection)?? (VAN koe MYE sin) ?What is the most important information I should know about vancomycin?Follow all directions on your medicine label and package. Tell each of your healthcare providers about all your medical conditions, allergies, and all medicines you use. ?What is vancomycin?Vancomycin is an antibiotic that is used to treat severe infections that are resistant to certain other antibiotics. ??Vancomycin is also used to treat serious infections in people who are allergic to penicillin. ?Vancomycin may also be used for purposes not listed in this medication guide. ?What should I discuss with my healthcare provider before using vancomycin?You should not take this medication if you are allergic to vancomycin. ?Tell your doctor if you have ever had: ?an allergy to corn products; ?kidney disease;?hearing problems; or ?if you are receiving any IV (intravenous) antibiotics. ?Tell your doctor if you are or . ?How should I use vancomycin?Follow all directions on your prescription label and read all medication guides or instruction sheets. ??Use the medicine exactly as directed. ?Vancomycin is given as an infusion into a vein, over at least 60 minutes. ??A healthcare provider will give your first dose and may teach you how to properly use the medication by yourself.?Read and carefully follow any Instructions for Use provided with your medicine.?Do not use vancomycin if you don't understand all instructions for proper use. ??Ask your doctor or pharmacist if you have questions. ?Prepare your injection only when you are ready to give it. ??Do not mix vancomycin with any other injectable medicines in the same container or IV.?Do not use if the medicine looks cloudy or has changed colors. ??Call your pharmacist for new medicine. ?Injecting this medicine too fast can cause serious side effects. ??Tell your doctor if you feelany burning, pain, or swelling around the IV needle when vancomycin is injected. ?You will need frequent medical tests. ??Your hearing may also need to be checked. ??If you needsurgery, tell your surgeon you currently use this medicine. ?Use this medicine for the full prescribed length of time,??even if your symptoms quickly improve. ??Skipping doses can increase your risk of infection that is resistant to medication. ??Vancomycin will not treat a viral infection such as the flu or a common cold. ?Carefully follow all storage instructions provided with your medicine.??How you store this medicine at home may depend on how the medicine is mixed before you receive it.?Storage could also depend on the type of container the medicine is provided in. ?If you store vancomycin in a refrigerator, do not allow it to freeze. ??Take the medicine out of the refrigerator and let it reach room temperature for 30 minutes before injecting your dose. ?If you receive vancomycin in a frozen solution, store the medicine in a freezer. ??Allow the medicine to thaw in a refrigerator or at room temperature. ??Do not thaw in a microwave or under hot water.?Do not refreeze the medicine after it has been thawed. ?Each single-use container of vancomycin is for one use only. ??Throw it away after one use, even if there is still medicine left inside. ?Use a needle and syringe only once and then place them in a puncture-proof 'sharps' container. ??Follow state or local laws about how to dispose of this container. ??Keep it out of the reach of children and pets. ?What happens if I miss a dose?Use the missed dose as soon as you remember. ??Skip the missed dose if it is almost time for your next scheduled dose. ??Do not??use extra medicine to make up the missed dose. ?What happens if I overdose?Seek emergency medical attention or call the Poison Help line at . ?What should I avoid while using vancomycin?Antibiotic medicines can cause diarrhea, which may be a sign of a new infection. ??If you have diarrhea that is watery or bloody, call your doctor.?Do not use anti-diarrhea medicine unless your doctor tells you to. ?What are the possible side effects of vancomycin?Get emergency medical help if you have??signs of an allergic reaction??(hives, difficult breathing, swelling in your face or throat)??or a severe skin reaction??(fever, sore throat, burning eyes,skin pain, red or purple skin rash with blistering and peeling). ?Call your doctor at once if you have: ?a light-headed feeling, like you might pass out; ?itching, rash, wheezing, trouble breathing; ?pain or tight feeling in your back or chest; ?flushing (warmth, redness, or tingly feeling) especially in your neck; ?severe stomach pain, diarrhea that is watery or bloody; ?pain, burning, irritation, or skin changes where the injection was given; ?fever, swollen gums, painful mouth sores, pain when swallowing, skin sores, cold or flu symptoms, cough, trouble breathing; ?hearing loss, ringing in your ears; or ?signs of a kidney problem--blood in your urine, little or no urinating, drowsiness, rapid weight gain. ?Side effects on the kidneys may be more likely in older adults. ?Common side effects may include: ?swelling or bruising where the medicine was injected. ?This is not a complete list of side effects and others may occur. Call your doctor for medical advice about side effects. You may report side effects to FDA at 0-510-SST-9904. ?What other drugs will affect vancomycin?Vancomycin can harm your kidneys,??especially if you also use certain medicines for infections,cancer, osteoporosis, organ transplant rejection, bowel disorders, high blood pressure, or pain or arthritis (including Advil, Motrin, and Aleve). ?Other drugs may affect vancomycin, including prescription and xwfu-ulq-zheidgy medicines, vitamins, and herbal products. ??Tell your doctor about all your current medicines and any medicine you start or stop using. ?Where can I get more information?Your doctor or pharmacist can provide more information about vancomycin. ?Remember, keep this and all other medicines out of the reach of children, never share your medicines with others, and use this medication only for the indication prescribed. ?Every effort has been made to ensure that the information provided by [employer]. ('[employer]') is accurate, up-to-date, and complete, but no guarantee is made to that effect. Drug information contained herein may be time sensitive. [employer] information has been compiled for use by healthcare practitioners and consumers in the [place] and therefore [employer] does not warrant that uses outside of the [place] are appropriate, unless specifically indicated otherwise. [employer] drug information does not endorse drugs, diagnose patients or recommend therapy. [employer] drug information is an informational resource designed [...] effective or appropriate for any given patient. [employer] does not assume any responsibility for any aspect of healthcare administered with the aid of information [employer] provides. The information contained herein is not intended to cover all possible uses, directions, precautions, warnings, drug interactions, allergic reactions, or adverse effects. If you have questions about the drugs you are taking, check with your doctor, nurse or pharmacist.? Copyright [employer] Version: 6.01. Revision Date: 09/03/2021. ? Patient Name:SILVIO MOYER I have received this information and my questions have been answered. Patient/White Mixing Operator Name: Patient/White Mixing Operator Signature: Relationship to Patient: Witness Name/Signature: Date: Electronically Signed on: 05/15/2022 13:22 CSTSigned by:MR Anesthesiology Consult note * [facility] DIRECTOR MICROBIOLOGY: PERFORM Event Display: Anesthesiology Consultation Authored Date: [id number] SILVIO MOYER :1945 Age:76 years Sex:Male Visit Date:05/12/2022 Primary Care Physician: JARRETT MOHR MSN,[employer]ET[employer] MANAGER-BC Procedure Name PICC placement - trimmed to midline ?? Indication IV ABX Location Med surg Pre-Procedure Exam Technique Procedure ??? US Guided PICC Line Placement 3CG Tip location ?? CONSENT:?? The patient was positively identified in the pre-procedure area.?? The medical record was reviewed, and a full discussion of the risks, benefits, complications, alternatives and anticipated outcome from PICC line insertion were discussed with the patient.?? Any questions that the patienthad regarding this discussion were answered, they stated that they understood the risk and that there were no further questions, and written consent was obtained. ?? PROCEDURE SUMMARY:?? A time out was performed.?? Ultrasound images were permanently documented assessing the ??left??cephalic??vein prior to procedure start.?? The patient???s??left??upper arm and antecubital region was prepped and draped in sterile fashion using a chlorhexidine scrub.?? The procedure tray was prepared.?? The PICC catheter was??trimmed at 25 cm??as indicated by patient measurements and flushed and prepared for insertion. Local anesthesia was administered with 1% lidocaine subcutaneously. The??cephalic??vein??was then placed in the center of the ultrasound field and compressedfor patency. A movement artifact was identified as the??20 gauge 1 ?? inch [employer]??needle was advanced through the skin and advanced toward the vessel. A real time hyperechoic signal revealed visualization of needle entry into the lumen as blood was noted to flashback in the hub. The guidewire was advanced without ectopy through the established vascular access, then the vascular access device was withdrawn.?? A small incision was made with a scalpel and a dilator was advanced over the guidewire until the appropriate dilation was obtained and the guidewire was then removed. The styletof the dilator was removed and a 5 Tamazight double lumen PICC line was advanced through the peel awaysheath and threaded??with resistance noted at 30??cm. Despite several attempts to reposition and advance, we were??unable??to advance past midline. Consultation with medical team insued and the decision was made to leave at midline position.??The peel away sheath was removed and??5??cm of the catheter were visible externally.?? Subsequently, a chlorhexidine impregnated disk??was?? placed at the insertion site at this time and the PICC line was secured in place with a statlock and??sterile occlusive dressing.?? At the time of procedure completion all ports were aspirated and flushed properly. A post procedure x-ray was unneccessary. ?? COMPLICATIONS:??unable to??tread PICC??past midline ?? ESTIMATED BLOOD LOSS:??2 mL ?? 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 He has been working with physical therapy. Afebrile. OBJECTIVE: Wound is healing well. Minimal drainage from his Hemovac. Distally he is neurovascularlyintact. LABORATORY: Cultures gram positive for gram-positive cocci. ASSESSMENT AND PLAN: A 76-year-old male postop day three from a right knee I and D with poly exchange. He appears to be doing well. We are going to continue with IV antibiotics for six weeks. He can be discharged once a final antibiotic plan is obtained. Could possibly to be discharged on vancomycin. Follow up with me on Wednesday for repeat wound check. Asiya Donato M.D. lo cc:KEDAR JACKSON Electronically Signed on 05/15/22 12:42 PM ASIYA DONATO MD Reviewed by: JARRETT MOHR MSN,SAL[employer] MARKETING MANAGER-BC Nutrition and dietetics Progress note * FELIPE BISWAS MPPD,RD,LD: PERFORM Event Display: Nutrition Note Authored Date: Assessment and Monitoring Appetite: Good Inpatient Meal/Snack intakes: 100% most meals GI Symptoms: n/a Chewing/Swallowing: No difficulties Skin:Incision/Wound Assessment: Knee Right 1 - Skin Abnormality Type: Surgical incision Food/Nutrition Related History: Has had diabetes education in past. Adjusts his diet based off of his blood sugar. Food insecurity/ Meal prep/ Groceries: No difficulties. ?? Patient utilizes a CGM for his diabetes management. He is very happy about it and brought his A1C down in the past 6 months. He also reports he has been able to lose about 30lbs intentionally thisyear.?? Patient had no questions/concerns at this time. Nutrition Diagnosis NCP Diagnosis Priority: 1(Recorded: 05/14/2022 10:31 [employer]) Increased nutrient needsrelated to Increased demands for nutrient, e.g., wound healingas evidenced by post I&D of right knee. Nutrition Goals Supplement PO intake >75%.(Recorded: 05/14/2022 10:31 [employer]) Nutrition Goal StatusComplete Nutrition Interventions Intervention(Recorded: 05/14/2022 10:31 [employer]) Nutrition InterventionCommercial beverage, Nutrition relationship to health/disease Nutrition Intervention CommentProstat BID. Nutrition Education Ed-Diet High Calorie/High ProteinVerbalizes understanding Anthropometrics/Estimated Needs Gniclp498.400 kg(Recorded: 05/12/2022 19:01 [employer]) Ddhwyg736.080 cm(Recorded: 05/12/2022 19:01 [employer]) Body Mass Index35.930 kg/m2(Recorded: 05/12/2022 19:01 [employer]) Estimated Protein Needs Low g/gzr313 g/day(Recorded: 05/14/2022 10:31 [employer]) Estimated Protein Needs High g/zwl718 g/day(Recorded: 05/14/2022 10:31 [employer]) Estimated Protein Needs Low g/kg/day1.2 g/kg/day(Recorded: 05/14/2022 10:31 [employer]) Estimated Protein Needs High g/kg/day1.5 g/kg/day(Recorded: 05/14/2022 10:31 [employer]) Reason for Visit Right Knee I & D with poly exchange Problem List/Past Medical History Ongoing Acid reflux Arthritis of left knee Diabetes mellitus type II Erectile dysfunction Gout Hyperlipidemia Hypertension Obesity Osteoarthritis of right knee joint Shoulder joint pain Historical No qualifying data Procedure/Surgical History ???Right total knee arthroplasty. (04/21/2022)???Left total knee arthroplasty. (12/02/2021)???Screening colonoscopy (Repeat 2021) (12/01/2016)???Appendectomy???Cholecystectomy???Removal of cataract Social History Alcohol Current, Beer, Wine, Liquor, 1-2 times per week- Comments: 1-2 per day Electronic Cigarette/Vaping Electronic Cigarette Use: Never. Employment/School Retired Home/Environment Lives with Spouse. Substance Use Never Tobacco Never (less than 100 in lifetime) Tobacco Use:. Family History Hypertension: Brother. Obesity: Brother. Sister: History is negative Sister: History is negative Brother: History is negative Family Member(s): ?? FATHER, at age: Unknown. Cause of : Family Member(s): ?? MOTHER, at age: Unknown. Cause of : Diet Orders Diet Order, 05/13/22 8:36:00 [employer], Regular, Low (1,200-1,600 nicolette) 60g CHO Allergies No Known Medication Allergies Nutrition Lab Results Test Name Test Result Date/Time Hgb 11.3 g/dL 05/14/2022 05:15 [employer] Creatinine Level 1.00 mg/dL 05/13/2022 10:24 [employer] Medications Inpatient aspirin, 325 mg= 1 tab, Oral, Daily bisacodyl 10 mg rectal suppository, 10 mg= 1 supp, AK, Daily, PRN cefTRIAXone CeleBREX, 400 mg= 2 cap, Oral, With Morning Meal docusate-senna 50 mg-8.6 mg oral tablet, 2 tab, Oral, every night at bedtime gabapentin 100 mg oral capsule, 100 mg= 1 cap, Oral, TID glipiZIDE 5 mg oral tablet, 5 mg= 1 tab, Oral, Daily HYDROmorphone 0.2 mg/mL injectable solution, 0.2 mg= 1 mL, IV Push, every 3 hr, PRN irbesartan, 300 mg= 2 tab, Oral, Daily metFORMIN, 500 mg= 1 tab, Oral, With Evening Meal metFORMIN 1000 mg oral tablet, 1000 mg= 1 tab, Oral, every morning MiraLax, 17 g= 1 packets, Oral, Daily Normal Saline Flush, 10 mL, IV Flush, Dimmer Board Operator, PRN Normal Saline Flush, 10 mL, IV Flush, every week Normal Saline Flush, 20 mL, IV Flush, Dimmer Board Operator, PRN Normal Saline Flush, 10 mL, IV Flush, Dimmer Board Operator, PRN Normal Saline Flush, 10 mL, IV Flush, every week Normal Saline Flush, 20 mL, IV Flush, Dimmer Board Operator, PRN NovoLOG Low Sliding Scale, SLIDING SCALE see comments, Subcutaneous, QID NS flush bag, 100 mL, IV Flush, Daily, PRN oxyCODONE 5 mg oral tablet, 10 mg= 2 tab, Oral, every 6 hr, PRN propranolol 120 mg oral capsule, extended release, 120 mg= 1 cap, Oral, Daily sodium chloride 0.9% flush, 3 mL, IV Flush, BID sodium chloride 0.9% flush, 3 mL, IV Flush, As Directed, PRN Toradol, 15 mg= 1 mL, IV Push, every 6 hr, PRN Tylenol 8 HR Arthritis Pain, 1300 mg= 2 tab, Oral, every 8 hr, PRN vancomycin Zofran, 4 mg= 2 mL, IV Push, every 4 hr, PRN Home aspirin 325 mg oral tablet, 325 mg= 1 tab, Oral, Daily Contour Next Test Strips, See Instructions, 5 refills glipiZIDE 10 mg oral tablet, 5 mg= 0.5 tab, Oral, Daily irbesartan 300 mg oral tablet, 1 tab, Oral, Daily, 1 refills Libre2 sensors, See Instructions metFORMIN 1000 mg oral tablet, 1 tab, Oral, BID, 1 refills oxyCODONE 5 mg oral tablet, 10 mg= 2 tab, Oral, every 6 hr, PRN propranolol 120 mg oral capsule, extended release, 1 cap, Oral, Daily, 1 refills sildenafil 25 mg oral tablet, 25 mg= 1 tab, Oral, Daily Tylenol 8 HR Arthritis Pain 650 mg oral tablet, extended release, 1300 mg= 2 tab, Oral, every 8 hr,PRN Electronically Signed on 05/14/22 10:44 AM FELIPE BISWAS MPPD,RD,LD Progress note * SARAI BOWEN MSN,AGACNP-BC,SALES MARKETING MANAGER-BC: PERFORM Event Display: Progress Note - Physician Authored Date: [id number] SILVIO MOYER :1945 Age:76 years Sex:Male Visit Date:05/12/2022 Primary Care Physician: JARRETT MOHR MSN,SALES MARKETING MANAGER-BC Subjective Winston reports his pain is controlled. Wearing immobilizer when up; reports he is ambulating well. Denies fever or chills. Objective Vitals & Measurements T:??36.6?C ??(Oral)?? TMIN:??36.6?C ??(Oral)?? TMAX:??36.8?C ??(Oral)?? HR:??66??(Monitored)?? HR:??66??(Peripheral)?? RR:??16?? BP:??156/81?? SpO2:??94%?? Pain Score:??0?? O2 Therapy:??Room air?? Physical Exam General: Well developed adult,?? in no acute distress HENT: NC/AT. Oral mucosa moist/clear. Oropharynx without edema or exudate. No nasal discharges Heart: Normal rate, regular rhythm. Lungs: Clear to auscultation bilaterally. Respirations easy and non-labored Abdomen: Soft, obese, non-tender, non-distended, bowel sounds active. No guarding or rebound. Extremities: 2+ pitting edema RLE distal tibia and foot. R knee immobilizer in place. Hemovac and KLARISSA dressing in place. No calf tenderness. Distal CMS intact. Gait is steady with use of immobilizerand walker. Skin: Osino, warm, and dry. No rashes Neurologic: Awake, alert and fully oriented. Speech and cognition intact. Psychiatric: Cooperative, appropriate mood and affect Lab Results Last 24 Hours?? Chemistry ? Event Name?? Event Result?? Date/Time?? Glucose POC 188 mg/dL??High 05/13/22 20:10:00 ? Hematology ? Event Name?? Event Result?? Date/Time?? Hgb 11.3 g/dL??Low 05/14/22 05:15:00 ? All Other Results ? Event Name?? Event Result?? Date/Time?? Vanco Tr <5.0??Low 05/13/22 15:40:00 ? Assessment/Plan 1.??Infection of prosthetic right knee joint??T84.53XA -s/p R total knee per Dr. Donato on 04/21/22. POST OP Day 23 -dehiscence of the mid-portion of the wound, developed persistent bloody then serous drainage from the wound -s/p surgical debridement and poly liner exchange 05/12/22??with Dr. Donato. POST OP Day 2 -keep R knee immobile. No flexion. Immobilizer on if OOB. -Hemovac and KLARISSA dressing in place. -IV ceftriaxone and vancomycin -ASA 325 mg daily po for DVT prevention -analgesics -post op hgb stable, mild anemia hgb 11.3 -OR cultures pending -Inpatient 05/13/22 2.??Diabetes mellitus type II??E11.9 -metformin and glipizide -uses a CGM -PRN SSI -recent HgbA1C 6.9% 3.??Hypertension??I10 4.??DVT prophylaxis??Z29.9 -ASA 325 mg daily and GIGI anastasiia Orders: bisacodyl 10 mg rectal suppository, 10 mg = 1 supp, AK, Supp, Daily, PRN constipation, First Dose: 05/14/22 8:23:00 [employer], Routine docusate-senna 50 mg-8.6 mg oral tablet, 2 tab, Oral, Tab, every night at bedtime, First Dose: 05/14/22 20:00:00 [employer], Routine NovoLOG Low Sliding Scale, SLIDING SCALE see comments, Subcutaneous, Injection, QID, First Dose: 05/14/22 12:00:00 [employer], Routine MiraLax, 17 g = 1 packets, Oral, Powder-Recon, Daily, First Dose: 05/14/22 10:00:00 [employer], Routine C-Reactive Protein, Blood, Timed Study, 05/15/22 5:00:00 [employer], Once, Lab Collect CBC w/ Diff, Blood, Timed Study, 05/15/22 5:00:00 [employer], Once, Lab Collect Comprehensive Metabolic Panel, Blood, Timed Study, 05/15/22 5:00:00 [employer], Once, Lab Collect Electronically Signed on 05/14/22 10:43 AM SARAI BOWEN MSN,AGACNP-BC,SALES MARKETING MANAGER-BC * GRZEGORZ VICENTE MD: PERFORM Event Display: Progress Note - Physician Authored Date: SILVIO MOYER :1945 Age:76 years Sex:Male Visit Date:05/12/2022 Primary Care Physician: JARRETT MOHR MSN,SALES MARKETING MANAGER-BC Subjective Winston is a 76 yo patient of Jarrett THACKER, who developed infection after right total knee replacement that was don here by Dr. Donato on 04/21/22.?? He had some dehiscence of the mid-portion of the wound, developed persistent bloody then serous drainage from the wound, underwent debridement andpoly liner exchange yesterday with Dr. Donato, multiple cultures obtained, results not back on anything.?? He is now has a drain in place and KLARISSA negative pressure dressing on the wound.?? He had quite a bit of pain immediately post op, but now feels pain is under excellent control.?? He's working w/ PT, currently we are getting directions from Dr. Donato for allowed movement in the joint.?? Review of Systems Winston had diabetes that was marginally controlled, when it became evident he needed his knees replaced, he made up his mind to loose weight, exercise, and improve his DM, Jarrett was able to stop his Victoza and reduce other oral meds as his A1c dropped from 9.1 last May to 6.9 by Feb 2022. Currently we just re-ordered CBG's, he states his CGM says sugars are in the 160 - 180 range, but we just re-started oral DM meds this AM. He o/w feels fine, denies chest pain, palpitations, cough, or dyspnea.?? he's eating well, no abdominal pain, nausea, or vomiting.?? He hasn't stooled since surgery, typically stools qod.?? No difficulty voiding.?? He's currently on Ceftriaxone 2 g IV q 24 hrs, Vancomycin 750 mg q 12 hrs, ASA 325 mg/d for DVT prevention, ,Celebrex 400 mg q AM, Gabapntin 100 mg tid, glipizide 5 mg q AM, Irbesartan 300/d, Metformin 1000 q am, Propranolol ER 120 mg qd.?? He had 10 mg of Oxycodone po this AM, o/w no prn pain medssince 1939 last night.?? Objective Vitals & Measurements T:??36.8?C ??(Oral)?? TMIN:??35.7?C ??(Temporal Artery)?? TMAX:??37.0?C ??(Oral)?? HR:??71??(Monitored)?? HR:??71??(Peripheral)?? RR:??18?? BP:??116/84?? SpO2:??96%?? HT:??172.080??cm?? WT:??106.400??kg?? BMI:??35.930?? Pain Score:??3?? O2 Flow Rate:??1?? O2 Therapy:??Room air?? Physical Exam Winston looks well, he's pleasant and cooperative, appears comfortable.?? Lungs are clear, heart regular w/o murmurs.?? Right knee is in an immobilizer, dressing left in place, 120cc of drain output wererecorded this AM.?? Right foot has good DP pulse, no edema in the lower leg. Assessment/Plan 1.??Infection of prosthetic right knee joint??T84.53XA Continue with current care plan, at this point anticipation is that he'll be discharged in 2 days, further plans depend on operative culture results.?I'm ordering CRP to check periodically in hopes this will give additional information regarding his response to treatment.?? 2.??Diabetes mellitus type II??E11.9 We'll monitor sugars closely, add SS insulin if needed. 3.??Hypertension??I10 Well controlled on his usual ARB dose. 4.??DVT prophylaxis??Z29.9 On AASA 325 mg/d.?? Orders: Blood Glucose POC (RE), 05/13/22 8:17:00 [employer], AC & bedtime C-Reactive Protein, Blood, Add On, 05/13/22 10:06:00 [employer], Once, Lab Collect, Septic arthritis of knee Diet Order, 05/13/22 8:36:00 [employer], Regular, Low (1,200-1,600 nicolette) 60g CHO Notify Provider, 05/13/22 8:17:00 [employer], Constant order, if patient is unable to tolerate/receive nutrition or blood glucose is below 60 Electronically Signed on 05/13/22 11:05 AM GRZEGORZ VICENTE MD History and physical note * ASIYA DONATO MD: PERFORM Event Display: History and Physical Authored Date: [id number] SILVIO MOYER :1945 Age:76 years Sex:Male Visit Date:05/12/2022 Primary Care Physician: JARRETT MHOR MSN,SALES MARKETING MANAGER-BC Addendum to H&P: ?? The History and Physical is complete (includes chief complaint, history of present illness (HPI), current medications, allergies, co-morbid conditions, past medical/surgical/family history, physical exam related to chief complaint and heart and lung exam) and reviewed. The Medication Reconciliationhas been reviewed. I have examined the patient. ?? There are no significant changes which affect the risk of the planned procedure. ?? Informed Consent: ?? I have explained in a language understandable to the patient or substitute decision-maker: * The procedure the patient is having and why they need it. * The benefits and possible risks of this procedure. * Reasonable alternatives to this procedure, including No treatment, the relevant risks, benefits and uncertainties related to each alternative. * The significant risks and problems specific to this patient. * The likelihood of the patient achieving his or her goals. ?? I have given the patient / substitute decision-maker an opportunity to: * Ask questions about of the above information. * Raise any other concerns. ?? I believe the patient/substitute decision-maker understood the above information. Electronically Signed on 05/12/22 02:26 PM ASIYA DONATO MD Discharge summary * SARAI BOWEN MSN,AGACNP-BC,SALES MARKETING MANAGER-BC: PERFORM, MODIFY, MODIFY Event Display: Discharge Summary Authored Date: [id number] SILVIO MOYER Escobar :1945 Age:76 years Sex:Male Visit Date:05/12/2022 Primary Care Physician: JARRETT MOHR MSN,SALES MARKETING MANAGER-BC Admission Information ADMISSION DIAGNOSIS:?? post operative infection of right prosthetic knee joint DISCHARGE DIAGNOSIS: post operative infection of right prosthetic knee joint ?? Admission Date:?05/13/2022 11:53:38 Discharge Date:? 05/15/2022 ?? Time Spent on Discharge:??60??minutes Hospital Course ?? Silvio is a 76 yo male patient of KEDAR Jackson who developed infection after righttotal knee replacement per Dr. Donato on 04/21/22. He had some dehiscence of the mid-portion of the wound, developed persistent bloody then serous drainage from the wound, underwent debridement and poly liner exchange on 05/11/[address] Donato. Multiple cultures obtained with preliminary resultscalled as gram positive cocci.?? He was admitted inpatient to [facility] following thesurgical debridement on 05/13/22 and was started on IV Vancomycin (monitored and dosed per pharmacy) and IV ceftriaxone.?? R knee is in an immobilizer.?? A hemovac and KLARISSA dressing are in place postoperatively. ?? Hemovac has a small amt of bloody drainage. Wound is well intact.?? There is 2+ pitting edema to the RLE. He is wearing a R knee immobilizer and has been walking with a walker. PT therapy continues to work with him. His gait is stable and he is quite mobile.? A PICC line was placed per US guidance per Anesthesia to the E on 05/12/22. It was trimmed to 25 cm. It has been maintained without signs of complication.?? Silvio condition is stable and he feels well. He was seen by Dr. Donato today and has been approved for discharge with plan for IV Vancomycin therapy for 6 weeks. Final cultureresults are pending at discharge. Outpatient orders have been written to continue IV Vancomycin 2 gram daily through the Outpatient Infusion Clinic. [facility] pharmacy will continue to monitor and dose IV therapy. PICC line will be maintained at discharge. He has scheduled follow up with Dr. Donato on 05/19/22. He is to leave the KLARISSA dressing in place and to continue to wear his knee immobilizer.?? Condition and vital signs are stable for discharge.? Physical Exam Vitals & Measurements T:??36.4?C ??(Oral)?? TMIN:??36.4?C ??(Oral)?? TMAX:??36.6?C ??(Oral)?? HR:??75??(Monitored)?? HR:??75??(Peripheral)?? RR:??16?? BP:??123/62?? SpO2:??96%?? Pain Score:??0?? O2 Therapy:??Room air? General: Well developed adult,?? in no acute distress HENT: NC/AT. Oral mucosa moist/clear. Oropharynx without edema or exudate. No nasal discharges Heart: Normal rate, regular rhythm. Lungs: Clear to auscultation bilaterally. Respirations easy and non-labored Abdomen: Soft, obese, non-tender, non-distended, bowel sounds active. No guarding or rebound. Extremities: 2+ pitting edema RLE distal tibia and foot. R knee immobilizer in place. Previous Hemovac site?? appears uncomplicated.??KLARISSA dressing in place. No calf tenderness. Distal CMS intact. Gait is steady with use of immobilizer and walker. Skin: Osino, warm, and dry. No rashes Neurologic: Awake, alert and fully oriented. Speech and cognition intact. Psychiatric: Cooperative, appropriate mood and affect Medications Inpatient aspirin, 325 mg= 1 tab, Oral, Daily bisacodyl 10 mg rectal suppository, 10 mg= 1 supp, AK, Daily, PRN cefTRIAXone CeleBREX, 400 mg= 2 cap, Oral, With Morning Meal docusate-senna 50 mg-8.6 mg oral tablet, 2 tab, Oral, every night at bedtime gabapentin 100 mg oral capsule, 100 mg= 1 cap, Oral, TID glipiZIDE 5 mg oral tablet, 5 mg= 1 tab, Oral, Daily HYDROmorphone 0.2 mg/mL injectable solution, 0.2 mg= 1 mL, IV Push, every 3 hr, PRN irbesartan, 300 mg= 2 tab, Oral, Daily metFORMIN, 500 mg= 1 tab, Oral, With Evening Meal metFORMIN 1000 mg oral tablet, 1000 mg= 1 tab, Oral, every morning MiraLax, 17 g= 1 packets, Oral, Daily Normal Saline Flush, 10 mL, IV Flush, Dimmer Board Operator, PRN Normal Saline Flush, 10 mL, IV Flush, every week Normal Saline Flush, 20 mL, IV Flush, Dimmer Board Operator, PRN Normal Saline Flush, 10 mL, IV Flush, Dimmer Board Operator, PRN Normal Saline Flush, 10 mL, IV Flush, every week Normal Saline Flush, 20 mL, IV Flush, Dimmer Board Operator, PRN NovoLOG Low Sliding Scale, SLIDING SCALE see comments, Subcutaneous, QID NS flush bag, 100 mL, IV Flush, Daily, PRN oxyCODONE 5 mg oral tablet, 10 mg= 2 tab, Oral, every 6 hr, PRN propranolol 120 mg oral capsule, extended release, 120 mg= 1 cap, Oral, Daily sodium chloride 0.9% flush, 3 mL, IV Flush, BID sodium chloride 0.9% flush, 3 mL, IV Flush, As Directed, PRN Toradol, 15 mg= 1 mL, IV Push, every 6 hr, PRN Tylenol 8 HR Arthritis Pain, 1300 mg= 2 tab, Oral, every 8 hr, PRN vancomycin Zofran, 4 mg= 2 mL, IV Push, every 4 hr, PRN Home aspirin 325 mg oral tablet, 325 mg= 1 tab, Oral, Daily Contour Next Test Strips, See Instructions, 5 refills glipiZIDE 10 mg oral tablet, 5 mg= 0.5 tab, Oral, Daily irbesartan 300 mg oral tablet, 1 tab, Oral, Daily, 1 refills Libre2 sensors, See Instructions metFORMIN 1000 mg oral tablet, 1 tab, Oral, BID, 1 refills oxyCODONE 5 mg oral tablet, 10 mg= 2 tab, Oral, every 6 hr, PRN propranolol 120 mg oral capsule, extended release, 1 cap, Oral, Daily, 1 refills sildenafil 25 mg oral tablet, 25 mg= 1 tab, Oral, Daily Tylenol 8 HR Arthritis Pain 650 mg oral tablet, extended release, 1300 mg= 2 tab, Oral, every 8 hr,PRN vancomycin 1 g/200 mL-D5% intravenous solution, 2 g, IV, every 24 hr Procedure/Surgical History ???Right total knee arthroplasty. (04/21/2022)???Left total knee arthroplasty. (12/02/2021)???Screening colonoscopy (Repeat 2021) (12/01/2016)???Appendectomy???Cholecystectomy???Removal of cataract Social History Alcohol Current, Beer, Wine, Liquor, 1-2 times per week- Comments: 1-2 per day Electronic Cigarette/Vaping Electronic Cigarette Use: Never. Employment/School Retired Home/Environment Lives with Spouse. Substance Use Never Tobacco Never (less than 100 in lifetime) Tobacco Use:. Lab Results Last 1 Week?? Chemistry ? Event Name?? Event Result?? Date/Time?? Sodium Level 135 mmol/L 05/15/22 05:15:00 Potassium Level 4.3 mmol/L 05/15/22 05:15:00 Chloride Level 103 mmol/L 05/15/22 05:15:00 CO2 26 mmol/L 05/15/22 05:15:00 Alk Phos 30 unit/L??Low 05/15/22 05:15:00 AST 21 unit/L 05/15/22 05:15:00 ALT 18 unit/L 05/15/22 05:15:00 BUN 18 mg/dL 05/15/22 05:15:00 Glucose Level 125 mg/dL??High 05/15/22 05:15:00 Creatinine Level 0.8 mg/dL 05/15/22 05:15:00 BUN/Creat Ratio 22.5 ratio??High 05/15/22 05:15:00 eGFR AA 114 mL/min/1.73 m2 05/15/22 05:15:00 eGFR Non-AA 94 mL/min/1.73 m2 05/15/22 05:15:00 Calcium Level 8.2 mg/dL??Low 05/15/22 05:15:00 Protein Total 5.3 g/dL??Low 05/15/22 05:15:00 Albumin Level 3.3 g/dL??Low 05/15/22 05:15:00 Globulin 2 g/dL 05/15/22 05:15:00 A/G Ratio 1.7 ratio 05/15/22 05:15:00 Bilirubin Total 0.3 mg/dL 05/15/22 05:15:00 Anion Gap 6 mmol/L 05/15/22 05:15:00 CRP 11.5 mg/L??High 05/15/22 05:15:00 Glucose POC 152 mg/dL??High 05/15/22 11:01:00 ? Hematology ? Event Name?? Event Result?? Date/Time?? WBC 7.2 x10^3/mcL 05/15/22 05:15:00 RBC 3.86 x10^6/mcL??Low 05/15/22 05:15:00 Hgb 11.3 g/dL??Low 05/15/22 05:15:00 Hct 35.5 %??Low 05/15/22 05:15:00 MCV 92 fL 05/15/22 05:15:00 MCH 29.3 pg 05/15/22 05:15:00 MCHC 31.8 % 05/15/22 05:15:00 RDW-CV 14.9 % 05/15/22 05:15:00 Platelets 237 x10^3/mcL 05/15/22 05:15:00 MPV 10 05/15/22 05:15:00 Neutro Auto 58 % 05/15/22 05:15:00 Lymph Auto 30.2 % 05/15/22 05:15:00 [place] Auto 8.5 % 05/15/22 05:15:00 Eos, Auto 2.1 % 05/15/22 05:15:00 Basophil Auto 0.6 % 05/15/22 05:15:00 Imm Gran Auto 0.6 % 05/15/22 05:15:00 NRBC Auto 0 /100 WBC 05/15/22 05:15:00 Neutro Absolute 4.19 x10^3/mcL 05/15/22 05:15:00 Lymph Absolute 2.18 x10^3/mcL 05/15/22 05:15:00 [place] Absolute 0.61 x10^3/mcL 05/15/22 05:15:00 Eos Absolute 0.15 x10^3/mcL 05/15/22 05:15:00 Baso Absolute 0.04 x10^3/mcL 05/15/22 05:15:00 Imm Gran Absolute 0.04 x10^3/mcL 05/15/22 05:15:00 NRBC Absolute 0 x10^3/mcL 05/15/22 05:15:00 ? Microbiology ? Event Name?? Event Result?? Date/Time?? Culture, Exudate Aerobic MB WCL See Result 05/12/22 15:08:00 ? All Other Results ? Event Name?? Event Result?? Date/Time?? Vancomycin Level Random 6.4 mcg/mL 05/13/22 10:24:00 Vanco Tr 12.6 mcg/mL 05/15/22 09:59:00 ? Discharge Plan -discharge to home independently -return daily for outpatient IV Vancomycin therapy -PICC line continues -leave KLARISSA dressing in place -miguelito wrap to the RLE -immobilizer to the R knee -walker with ambulation -sponge bath -continue PT therapies -keep scheduled follow up appt w/ Dr. Donato 05/19/22. Contact him sooner if questions or concerns. ?? 1.??Infection of prosthetic right knee joint??T84.53XA -s/p R total knee per Dr. Donato on 04/21/22. POST OP Day 24 -dehiscence of the mid-portion of the wound, developed persistent bloody then serous drainage from the wound -s/p surgical debridement and poly liner exchange 05/12/22??with Dr. Donato. POST OP Day 3 -keep R knee immobile. No flexion. Immobilizer on if OOB. -Hemovac and KLARISSA dressing in place. -IV ceftriaxone and vancomycin -ASA 325 mg daily po for DVT prevention -analgesics -post op hgb stable, mild anemia hgb 11.3 -PICC line appears uncomplicated -OR cultures pending - prelim report of gram positive cocci -Inpatient 05/13/22 2.??Diabetes mellitus type II??E11.9 -metformin and glipizide -uses a CGM -PRN SSI -recent HgbA1C 6.9% 3.??Hypertension??I10 -irbesartan 4.??DVT prophylaxis??Z29.9 -ASA 325 mg daily and GIGI hose Orders: vancomycin 1 g/200 mL-D5% intravenous solution, 2 g =, IV, every 24 hr, will be recieving through the [facility] Outpatient infusion clinic, # 42 EA, 0 Refill(s), other reason (Rx) Discharge Activity Restrictions, Activity as tolerated. Fall precautions. Wear immobilizer to the [facility] with MIGUELITO wrap whenever out of bed. Use walker. Keep dressing intact to the R knee. Sponge bathuntil Dr. Donato releases you to shower. Discharge Diet Instruction, Consistent Carbohydrate [id number] nicolette, Diabetic, low sodium diet. Discharge Patient, 05/15/22 12:39:00 [employer], Home Independently, Discharge after his 3 pm dose of IV Vancomycin is complete, Constant Indicator Discharge Patient Instructions, Discharge contact the doctor if: Fever, chills, chest pain, abdominal pain, nausea vomiting or diarrhea, unrelieved constipation, black or bloody stools, shortness of breath, fainting or near fainting, mental status changes or other concerns. Discharge Patient Instructions, Keep PICC Line clean and dry. Nursing to instruct on home care of PICC. Plan for weekly dressing changes - notify us immediately if dressing is not occlusive. Wrap lightly to protect prior to discharge. Discharge Patient Instructions, Follow diabetic diet closely. Monitor blood sugars as prior to hospitalization. Contact your doctor if blood sugars greater than 350 mg/dL Discharge Patient Instructions, plan for daily IV Vancomycin infusion through the [facility] Out[facility] Infusion [facility]. First dose with be Wednesday05/16/22 at 2 pm. Next dose Wednesday05/17/22 at 1 pm. Wednesday's dose with be at 12 pm. Discharge Patient Instructions, COVID Status Instructions: Pre-admission COVID testing negative. Discharge Patient Instructions, Intersperse periods of rest with periods of walking and activity. Monitor bowel and bladder elimination pattern. Keep stools soft and regular. May use [id number] or other laxative/stool softener as needed per package directions. Discharge Respiratory Care, Monitor respiratory status. Contact provider or seek medical attention if you experience shortness or breath or difficulty breathing. Follow Up Appointment, 05/15/22 12:39:00 PRESS TENDER LONG GOODS, Keep scheduled follow up appt with Dr. Donato on 05/19/22 at [facility] Specialty clinic. Contact or see him sooner if complications or concerns. Return to theEmergency Department for urgent or emergent conditions. [facility] Nursing Task, 05/15/22 12:39:00 PRESS TENDER [employer], Stop date 05/15/22 12:39:00 PRESS TENDER [employer], Complete Influenza Screening upon discharge [facility] Nursing Task, 05/15/22 12:39:00 PRESS TENDER LONG GOODS, Once, Stop date 05/15/22 12:39:00 PRESS TENDER LONG GOODS, Disassociate monitor at discharge All Diagnoses This Visit Infection of prosthetic right knee joint Diabetes mellitus type II Hypertension DVT prophylaxis Patient Discharge Condition stable Discharge Disposition Home independently Follow Up With When Contact Information ASIYA DONATO MD 05/19/2022 12:28 PM PRESS TENDER [employer] [address] [place] [address] [phone] Additional Instructions: at the [facility] Specialty Clinic Medication Reconciliation New Prescription vancomycin (vancomycin 1 g/200 mL-D5% intravenous solution)2 Gram Intravenous every 24 hours for 6 weeks. will be recieving through the [facility] Outpatient infusion clinic. Refills: 0. ?? Unchanged acetaminophen (Tylenol 8 HR Arthritis Pain [...] 0. ?? glipiZIDE (glipiZIDE 10 mg oral tablet)0.5 tab Oral (given by mouth) every day. Refills: 1. ?? irbesartan (irbesartan 300 mg oral tablet)1 tab Oral (given by mouth) every day. Refills: 1. ?? metFORMIN (metFORMIN 1000 mg oral tablet)1 [...] 1 hour before sexual activity. Refills: 0. Electronically Signed on 05/15/22 03:53 PM SARAI BOWEN,AGAP-BC,SALES MARKETING MANAGER-BC GRZEGORZ VICENTE MD Patient Care team information Personnel Name: JARRETT MOHR,SALES MARKETING MANAGER-BC Address: Address: [address]
--- OUTSIDE RECORDS SUMMARY | 2023-03-20 19:14 | XMS_ITS | Continuity of Care Document ---
Author Name Unknown Organization [facility] ter Address [address] [place] [address] Care Team Providers Care Shipping And Receiving Associate Name Role Phone JARRETT MOHR Primary Care Physician Encounter REGM_[place] Date(s): 09/21/22 - 09/21/22 [facility] [address] [place] [address] Discharge Disposition: Home or Self Care Attending Physician: JARRETT MOHR MSN,PRESS LEADER-BC Admitting Physician: JARRETT MOHR MSN,PRESS LEADER-BC Referring Physician: JARRETT MOHR MSN,PRESS LEADER-BC Allergies, Adverse Reactions, Alerts Substance Reaction Severity [...] [facility] Start Date: 07/01/21 Status: Ordered FreeStyle Nadira 2 Sensor kit FreeStyle Nadira 2 Sensor kit, See Instructions, USE DIRECTED, # 2 kits, 5 Refill(s), Pharmacy: [facility], 172.08, cm, 06/28/22 12:24:00 HEAD GIRLS GOLF COACH, Height/Length Dosing, 109.5, kg, 06/26/22 12:11:00 HEAD GIRLS GOLF COACH, Weight Dosing Start Date: 08/31/22 Status: Ordered furosemide 20 mg oral tablet 20 mg = 1 tab, Oral, Daily, PRN other (see comment), take 1 tab as needed for swelling, # 5 tab, 0 Refill(s), Pharmacy: [facility], 172.08, cm, 06/28/22 12:24:00 HEAD GIRLS GOLF COACH, Height/Length Dosing, 109.5, kg, 06/26/22 12:11:00 HEAD GIRLS GOLF COACH, Weight Dosing Start Date: 06/30/22 Status: Ordered furosemide 20 mg oral tablet 40 mg = 2 tab, Oral, BID, # 8 tab, 0 Refill(s), Pharmacy: [facility], 172.08, cm, 06/26/22 12:11:00 HEAD GIRLS GOLF COACH, Height/Length Dosing, 109.5, kg, 06/26/22 12:11:00 HEAD GIRLS GOLF COACH, Weight Dosing Start Date: 06/28/22 Status: Ordered furosemide 40 mg oral tablet 40 mg = 1 tab, Oral, BID, # 30 tab, 0 Refill(s), Pharmacy: [facility], 172.08, cm, 06/26/22 12:11:00 HEAD GIRLS GOLF COACH, Height/Length Dosing, 109.5, kg, 06/26/22 12:11:00 HEAD GIRLS GOLF COACH, Weight Dosing Start Date: 06/28/22 Status: Ordered glipiZIDE 10 mg oral tablet 5 mg = 0.5 tab, Oral, Daily, # 180 tab, 1 Refill(s), Pharmacy: [facility], 172.08, cm, 05/15/22 18:25:00 HEAD GIRLS GOLF COACH, Height/Length Dosing, 106.4, kg, 05/15/22 18:25:00 HEAD GIRLS GOLF COACH, Weight Dosing Start Date: 05/28/22 Status: Ordered irbesartan 300 mg oral tablet 1 tab, Oral, Daily, # 90 tab, 1 Refill(s), [facility], 172.08, cm, 06/28/22 12:24:00 HEAD GIRLS GOLF COACH, Height/Length Dosing, 109.5, kg, 06/26/22 12:11:00 HEAD GIRLS GOLF COACH, Weight Dosing Start Date: 06/30/22 Status: Ordered Libre2 sensors Libre2 sensors, please dispense 2 sensors with a refill. thanks - patient has a coupon card, Supply, See Instructions, # 1 EA, 0 Refill(s), Pharmacy: [facility] Start Date: 09/11/21 Status: Ordered metFORMIN 1000 mg oral tablet 1 tab, Oral, BID, # 180 tab, 1 Refill(s), [facility]acy: [facility], 172.08, cm, 06/28/22 12:24:00 HEAD GIRLS GOLF COACH,Height/Length Dosing, 109.5, kg, 06/26/22 12:11:00 HEAD GIRLS GOLF COACH, Weight Dosing Start Date: 06/30/22 Status: Ordered propranolol 120 mg oral capsule, extended release 1 cap, Oral, Daily, # 90 cap, 1 Refill(s), [facility]acy: [facility], 172.08, cm, 06/28/22 12:24:00 HEAD GIRLS GOLF COACH, Height/Length Dosing, 109.5, kg, 06/26/22 12:11:00 HEAD GIRLS GOLF COACH, Weight Dosing Start Date: 06/30/22 Status: Ordered sildenafil 25 mg oral tablet 25 mg = 1 tab, Oral, Daily, 1 hour before sexual activity, # 10 tab, 0 Refill(s), Pharmacy: [facility] Start Date: 07/01/21 Status: Ordered Tylenol [...] Confirmed Active 1Records from Dr. Riley Diane, [facility] 2Records from Dr. Riley Diane [facility] 3Records from Dr. Riley Diane, [facility] 4Records from Dr. Riley Diane, [facility] 5Records from Dr. Riley Diane, [facility] Procedures Procedure Date Related Diagnosis Body [...] sessile polyp Records from Dr. Riley Diane, [facility] 3Records from Dr. Riley Diane, [facility] 4Records from Dr. Riley Diane, [facility] 5Records from Dr. Riley Diane, [facility] Results Laboratory List Name Date Basic Metabolic Panel (BMP) 09/21/22 Most recent to oldest [Reference Range]: 1 BUN [6-20 mg/dL] 27 mg/dL *HI* (09/21/22 9:22 AM) Glucose Level [70-100 mg/dL] 162 mg/dL *HI* (09/21/22 9:22 AM) Potassium Level [3.5-5.5 mmol/L] 4.3 mmo l/L (09/21/22 9:22 AM) Sodium Level [135-150 mmol/L] 141 mmol/L (09/21/22 9:22 AM) Calcium Level [8.4-10.4 mg/dL] 9.3 mg/dL (09/21/22 9:22 AM) CO2 [22-32 mmol/L] 31 mmol/L (09/21/22 9:22 AM) eGFR Non-AA [>=60 mL/min/1.73 m2] 54 mL/ min/1.73 m2 *LOW* (09/21/22 9:22 AM) eGFR AA [>=60 mL/min/1.73 m2] 65 mL/min/ 1.73 m2 (09/21/22 9:22 AM) Chloride Level [95-110 mmol/L] 103 mmol/ L (09/21/22 9:22 AM) BUN/Creat Ratio [6.0-22.0 ratio] 20.8 ra viri (09/21/22 9:22 AM) Creatinine Level [0.66-1.25 mg/dL] 1.30 mg/dL *HI* (09/21/22 9:22 AM) Anion Gap [3.0-11.0 mmol/L] 7.0 mmol/L (09/21/22 9:22 AM) Social History Social History Type Response Tobacco Never tobacco user T obacco Use:. Sex Patient Care team information Care Team Personnel Name: JARRETT MOHR MSN,[facility]- Position: Nurse Practitioner Member Role: Informed Provider Address: Address: [address] [place] [address] Name: KALEE GUO MSN,PRESS LEADER- Position: Nurse Practitioner Member Role: Nurse Practitioner Address: Address: [address] [place] [address] Name: SARAI BOWEN MSN,[facility]-,PRESS LEADER- Position: Nurse Practitioner Member Role: Nurse Practitioner Address: Address: [address] [place] [address] Care Team Related Persons Name: ASTER MOYER Address: Home [address] [place] [phone]
--- OUTSIDE RECORDS SUMMARY | 2023-03-20 19:14 | XMS_ITS | Continuity of Care Document ---
Author Name Unknown Organization [facility] Address [address] [place] [address] Care Team Providers Care Crushed Stone Grader Name Role Phone JARRETT MOHR Primary Care Physician Encounter REGM_[place] Date(s): 06/26/22 - 06/26/22 Formerly [facility] [address] [facility] [address] [place] [address]- Encounter Diagnosis Osteoarthritis of right knee joint(Discharge Diagnosis) - 06/26/22 Infected prosthetic knee joint(Discharge Diagnosis) - 06/26/22 Presence of unspecified artificial knee joint(Discharge Diagnosis) - 06/26/22 Acute kidney injury(Discharge Diagnosis) - 06/26/22 Diabetes mellitus type II(Discharge Diagnosis) - 06/26/22 Discharge Disposition: Home or Self Care Attending Physician: JARRETT MOHR MSN,COMPUTER ASSISTANT-BC Allergies, Adverse Reactions, Alerts Substance Reaction Severity Status vancomycin Acute kidney injury due to nephrotoxicity Angioedema Rash Severe Active Functional Status 06/26/22 Family Member Travel History No recent t sandra Recent Travel History No recent travel Other [...] 750 mg = 1 tab, Oral, every other day, # 15 tab, 0 Refill(s), Pharmacy: [facility], 172.08, cm, 05/15/22 18:25:00 BOAT CANVAS MAKER AND INSTALLER, Height/Length Dosing, 106.4, kg, 05/15/22 18:25:00 BOAT CANVAS MAKER AND INSTALLER, Weight Dosing Start Date: 06/17/22 Stop Date: [...] Pharmacy: [facility], 172.08, cm, 05/15/22 18:25:00 BOAT CANVAS MAKER AND INSTALLER, Height/Length Dosing, 106.4, kg, 05/15/22 18:25:00 BOAT CANVAS MAKER AND INSTALLER, Weight Dosing Start Date: 05/28/22 Status: Ordered [...] activity, # 10 tab, 0 Refill(s), Pharmacy: [facility] Start Date: 07/01/21 Status: Ordered Tylenol [...] Confirmed Active 1Records from Dr. Riley Diane, [facility] 2Records from Dr. Riley Diane, [facility] 3Records from Dr. Riley Diane, [facility] 4Records from Dr. Riley Diane, [facility] 5Records from Dr. Riley Diane, [facility] Procedures Procedure Date Related Diagnosis Body [...] sessile polyp Records from Dr. Riley Diane, [facility] 3Records from Dr. Riley Diane, [facility] 4Records from Dr. Riley Diane, [facility] 5Records from Dr. Riley Diane, [facility] Vital Signs Most recent to oldest [Reference Range]: 1 Temperature Tympanic [36.6-37.9 Deg C] 3 6.2 Deg C *LOW* (06/26/22 8:25 AM) Peripheral Pulse Rate [60-100 bpm] 88 bp m (06/26/22 8:25 AM) Respiratory Rate [12-24 br/min] 16 br/mi n (06/26/22 8:25 AM) Blood Pressure [90-140/60-90 mmHg] 98/62 mmHg (06/26/22 8:25 AM) Weight 112.3 kg (06/26/22 8:25 AM) Weight Measured (lbs) 247.579 lb (06/26/22 8:25 AM) Social History Social History Type Response Tobacco Never tobacco user T obacco Use:. Sex Patient Care team information Personnel Name: DIONY MOHRTISH Alexander MSN,COMPUTER ASSISTANT- Address: Address: [address]
--- OUTSIDE RECORDS SUMMARY | 2023-03-20 19:14 | XMS_ITS | Continuity of Care Document ---
Author Name Unknown Organization [facility] ter Address [address] [place] [address] Care Team Providers Care Silica Mixer Operator Name Role Phone JARRETT MOHR Primary Care Physician Encounter [facility] [id number] Date(s): 05/18/22 - 05/18/22 [facility] [address] [place] [address] Discharge Disposition: Home or Self Care Attending Physician: JARRETT MOHR MSN,MOTOR BLOCK MECHANIC-BC Admitting Physician: JARRETT MOHR MSN,MOTOR BLOCK MECHANIC-BC Referring Physician: JARRETT MOHR MSN,MOTOR BLOCK MECHANIC-BC Allergies, Adverse Reactions, Alerts No Known Medication Allergies Assessment and Plan Future Appointments Appointment Date:05/19/2022 11:30:00 AM Scheduled Provider: Location:[facility] Appointment Type:IV Med Therapy 90 ([facility]) Appointment Date:05/20/2022 09:30:00 AM Scheduled Provider: Location:[facility] Appointment Type:IV Med Therapy 90 ([facility]) Appointment Date:05/21/2022 09:30:00 AM Scheduled Provider: Location:[facility] Appointment Type:IV Med Therapy 90 ([facility]) Appointment Date:05/22/2022 09:30:00 AM Scheduled Provider: Location:[facility] Appointment Type:IV Med Therapy 90 ([facility]) Appointment Date:2022 09:30:00 AM Scheduled Provider: Location:[facility] Appointment Type:IV Med Therapy 90 ([facility]) Appointment Date:05/24/2022 09:30:00 AM Scheduled Provider: Location:[facility] Appointment Type:IV Med Therapy 90 ([facility]) Appointment Date:05/25/2022 09:30:00 AM Scheduled Provider: Location:[facility] Appointment Type:IV Med Therapy 90 ([facility]) Appointment Date:05/26/2022 09:30:00 AM Scheduled Provider: Location:[facility] Appointment Type:IV Med Therapy 90 ([facility]) Appointment Date:05/27/2022 09:30:00 AM Scheduled Provider: Location:[facility] Appointment Type:IV Med Therapy 90 ([facility]) Appointment Date:05/28/2022 09:30:00 AM Scheduled Provider: Location:[facility] [...] Future Scheduled Tests Laboratory* Vancomycin Lvl Trough 05/21/22 Immunizations Given and Recorded Vaccine Date Status [...] moderate, # 12 tab, 0 Refill(s), [facility], 172.08, [...] activity, # 10 tab, 0 Refill(s), Pharmacy: [facility] Start Date: 07/01/21 Status: Ordered Tylenol 8 HR Arthritis Pain 650 mg oral tablet, extended release 1,300 mg = 2 tab, Oral, every 8 hr, PRN as needed for pain Start Date: 04/22/22 Status: Ordered vancomycin 1 g/200 mL-D5% intravenous solution 2 g =, IV, every 24 hr, will be recieving through the [facility] Outpatient infusion clinic, [...] Confirmed Active 1Records from Dr. Riley Diane, [facility] 2Records from [facility]. Riley Diane, [facility] 3Records from Dr. Riley Diane, [facility] 4Records from Dr. Riley Diane, [facility] 5Records from Dr. Riley Diane, [facility] Procedures Procedure Date Related Diagnosis Body Site Status Right total knee arthroplasty. 04/21/22 Completed Left total knee arthroplasty. 12/02/21 Completed Screening colonoscopy (Repeat 2021) 1 12/01/16 Completed Appendectomy 2 Completed Cholecystectomy 3 Complet ed Removal of cataract 4 Com pleted 12 mm sessile polyp Records from Dr. Riley Diane, [facility] 2Records from Dr. Riley Diane, [facility] 3Records from Dr. Riley Diane, [facility] 4Records from Dr. Riley Diane, [facility] Results Laboratory List Name Date Vancomycin Lvl Trough 05/18/22 Most recent to oldest [Reference Range]: 1 Vanco Tr [10.0-20.0 mcg/mL] 12.4 mcg/mL (05/18/22 1:10 PM) Social History Social History Type Response Smoking Status Never (less than 100 in lifetime) entered on: 06/16/21 Sex Patient Care team information Personnel Name: JARRETT MOHR MSN,MOTOR BLOCK MECHANIC- Address: Address: [address] [place], [place] [address]
--- OUTSIDE RECORDS SUMMARY | 2023-03-20 19:14 | XMS_ITS | Continuity of Care Document ---
Author Name Unknown Organization [facility] ter Address [address] [place] [address] Care Team Providers Care Shipping Checker Name Role Phone JARRETT MOHR Primary Care Physician Encounter REGM_[place] Date(s): 05/01/22 - 05/01/22 [facility] [address] [place] [address] Discharge Disposition: Home or Self Care Attending Physician: ASIYA DONATO MD Admitting Physician: ASIYA DONATO MD Referring Physician: JARRETT MOHR MSN,SOUND ENGINEER-BC Allergies, Adverse Reactions, Alerts No Known Medication [...] Instructions, # 100 EA, 5 Refill(s), Pharmacy: [facility] Start Date: 07/01/21 Status: Ordered glipiZIDE [...] Instructions, # 1 EA, 0 Refill(s), Pharmacy: [facility] Start Date: 09/11/21 Status: Ordered metFORMIN [...] Confirmed Active 1Records from Dr. Riley Diane, [facility] 2Records from Dr. Riley iDane, [facility] 3Records from Dr. Riley Diane, [facility] 4Records from Dr. Riley Diane, [facility] 5Records from Dr. Riley Diane, [facility] Procedures Procedure Date Related Diagnosis Body Site Status Left total knee arthroplasty. 12/02/21 Completed Screening colonoscopy (Repeat 2021) 1 12/01/16 Completed Appendectomy 2 Completed Cholecystectomy 3 Complet ed Removal of cataract 4 Com pleted 12 mm sessile polyp Records from Dr. Riley Diane, [facility] 2Records from Dr. Riley Diane, [facility] 3Records from Dr. Riley Diane, [facility] 4Records from Dr. Riley Diane, [facility] Social History Social History Type Response Smoking Status Never (less than 100 in lifetime) entered on: 06/16/21 Sex Patient Care team information Personnel Name: JARRETT MOHR MSN,[facility]- Address: Address: [address] [place], [place] [address]
--- OUTSIDE RECORDS SUMMARY | 2023-03-20 19:14 | XMS_ITS | Continuity of Care Document ---
Author Name Unknown Organization [facility] ter Address [address] [place] [address] Care Team Providers Care Acid Polymerization Operator Name Role Phone JARRETT MOHR Primary Care Physician Encounter REGM_[place] Date(s): 10/23/22 - 10/23/22 [facility] [address] [place] [address] Discharge Disposition: Home or Self Care Attending Physician: DON TRIPP Admitting Physician: DON TRIPP Referring Physician: JARRETT MOHR MSN,STAYING MACHINE OPERATOR-BC Allergies, Adverse Reactions, Alerts Substance Reaction Severity Status vancomycin Acute kidney injury due to nephrotoxicity Angioedema Rash Severe Active Immunizations Given and Recorded Vaccine Date Status Refusal Reason influenza virus vaccine, inactivated 03/23/22 Give n influenza virus vaccine, inactivated 04/03/21 Jalil rded influenza virus vaccine, inactivated 04/29/20 Give n SARS-CoV-2 (COVID-19) mRNA-1273(6y+ biva 03/11/22 Given SARS-CoV-2 (COVID-19) mRNA-1273 vaccine 10/24/21 G iven [...] Pharmacy: [facility], 172.08, cm, 06/28/22 12:24:00 TAILOR FITTER, Height/Length Dosing, 109.5, kg, 06/26/22 12:11:00 TAILOR FITTER, Weight Dosing Start Date: 08/31/22 Status: Ordered furosemide 20 mg oral tablet 20 mg = 1 tab, Oral, Daily, PRN other (see comment), take 1 tab as needed for swelling, # 5 tab, 0 Refill(s), Pharmacy: [facility], 172.08, cm, 06/28/22 12:24:00 TAILOR FITTER, Height/Length Dosing, 109.5, kg, 06/26/22 12:11:00 TAILOR FITTER, Weight Dosing Start Date: 06/30/22 Status: Ordered furosemide 20 mg oral tablet 40 mg = 2 tab, Oral, BID, # 8 tab, 0 Refill(s), Pharmacy: [facility], 172.08, cm, 06/26/22 12:11:00 TAILOR FITTER, Height/Length Dosing, 109.5, kg, 06/26/22 12:11:00 TAILOR FITTER, Weight Dosing Start Date: 06/28/22 Status: Ordered furosemide 40 mg oral tablet 40 mg = 1 tab, Oral, BID, # 30 tab, 0 Refill(s), Pharmacy: [facility], 172.08, cm, 06/26/22 12:11:00 TAILOR FITTER, Height/Length Dosing, 109.5, kg, 06/26/22 12:11:00 TAILOR FITTER, Weight Dosing Start Date: 06/28/22 Status: Ordered glipiZIDE 10 mg oral tablet 5 mg = 0.5 tab, Oral, Daily, # 180 tab, 1 Refill(s), Pharmacy: [facility], 172.08, cm, 05/15/22 18:25:00 TAILOR FITTER, Height/Length Dosing, 106.4, kg, 05/15/22 18:25:00 TAILOR FITTER, Weight Dosing Start Date: 05/28/22 Status: Ordered irbesartan 300 mg oral tablet 1 tab, Oral, Daily, # 90 tab, 1 Refill(s), [facility], 172.08, cm, 06/28/22 12:24:00 TAILOR FITTER, Height/Length Dosing, 109.5, kg, 06/26/22 12:11:00 TAILOR FITTER, Weight Dosing Start Date: 06/30/22 Status: Ordered Libre2 sensors Libre2 sensors, please dispense 2 sensors with a refill. thanks - patient has a coupon card, Supply, See Instructions, # 1 EA, 0 Refill(s), Pharmacy: [facility] Start Date: 09/11/21 Status: Ordered metFORMIN 1000 mg oral tablet 1 tab, Oral, BID, # 180 tab, 1 Refill(s), [facility], 172.08, cm, 06/28/22 12:24:00 TAILOR FITTER,Height/Length Dosing, 109.5, kg, 06/26/22 12:11:00 TAILOR FITTER, Weight Dosing Start Date: 06/30/22 Status: Ordered propranolol 120 mg oral capsule, extended release 1 cap, Oral, Daily, # 90 cap, 1 Refill(s), Pharm[facility]: [facility], 172.08, cm, 06/28/22 12:24:00 TAILOR FITTER, Height/Length Dosing, 109.5, kg, 06/26/22 12:11:00 TAILOR FITTER, Weight Dosing Start Date: 06/30/22 Status: Ordered sildenafil 25 mg oral tablet 25 mg = 1 tab, Oral, Daily, 1 hour before sexual activity, # 10 tab, 0 Refill(s), Pharmacy: [facility] Start Date: 07/01/21 Status: Ordered Tylenol [...] Confirmed Active 1Records from Dr. Riley Diane, [facility] 2Records from Dr. Riley Diane, [facility] 3Records from Dr. Riley Diane, [facility] 4Records from Dr. Riley Diane, [facility] 5Records from Dr. Riley Diane, [facility] Procedures Procedure Date Related Diagnosis Body Site [...] sessile polyp Records from Dr. Riley Diane, [facility] 3Records from Dr. Riley Diane, [facility] 4Records from Dr. Riley Diane, [facility] 5Records from Dr. Riley Diane, [facility] Social History Social History Type Response Tobacco Never tobacco user T obacco Use:. Sex Patient Care team information Care Team Personnel Name: JARRETT MOHR MSN,STAYING MACHINE OPERATOR- Position: Nurse Practitioner Member Role: Informed Provider Address: Address: [address] [place] [address]- Name: KALEE GUO MSN,STAYING MACHINE OPERATOR-BC Position: Nurse Practitioner Member Role: Nurse Practitioner Address: Address: [address] [place] [id number]- Name: SARAI BOWEN MSN,[facility]STAYING MACHINE OPERATOR- Position: Nurse Practitioner Member Role: Nurse Practitioner Address: Address: [address] [place] [id number] Care Team Related Persons Name: MARGARITO MOYERA Address: Home [address] [place] [phone]
--- OUTSIDE RECORDS SUMMARY | 2023-03-20 19:15 | XMS_ITS | Continuity of Care Document ---
Author Name Unknown Organization [facility] Address [address] [place] [address] Care Team Providers Care Inventory Technician Name Role Phone JARRETT MOHR Primary Care Physician Encounter REGM[place] Date(s): 03/23/22 - 03/23/22 [facility] [address] [facility] [address] [place] [address]- Encounter Diagnosis Pre-op exam(Discharge Diagnosis) - 03/23/22 Arthritis of left knee(Discharge Diagnosis) - 03/23/22 Diabetes mellitus type II(Discharge Diagnosis) - 03/23/22 MSSA bacteremia(Discharge Diagnosis) - 03/23/22 Immunization due(Discharge Diagnosis) - 03/23/22 Discharge Disposition: Home or Self Care Attending Physician: JARRETT MOHR MSN,DRUG ABUSE PROGRAM COORDINATOR-BC Allergies, Adverse Reactions, Alerts No Known Medication Allergies Assessment and Plan Future Appointments Future Scheduled Tests Laboratory* SARS-CoV-2 (COVID-19) RNA (ID Now) 04/16/22 Functional Status 03/23/22 Family Member Travel History No recent t [...] Instructions, # 100 EA, 5 Refill(s), [facility]acy: [facility] Start Date: 07/01/21 Status: Ordered FreeStyle Nadira 2 Sensor kit FreeStyle Nadira 2 Sensor kit, See Instructions, USE DIRECTED, # 2 kits, 5 Refill(s), [facility]acy[facility], [facility], cm, 12/03/21 [...] surgey., # 240 mL, 0 Refill(s), Pharmacy: [facility], 172, cm, 12/03/21 [...] Instructions, # 1 EA, 0 Refill(s), Pharmacy: [facility] Start Date: 09/11/21 Status: Ordered metFORMIN 1000 [...] activity, # 10 tab, 0 Refill(s), Pharmacy: [facility] Start Date: 07/01/21 Status: Ordered Problem List Condition Effective Dates Status Health Status Inform ant Arthritis of left knee(Confirmed) Active Diabetes mellitus type II(Confirmed) 1 Active Erectile dysfunction(Confirmed) Active Acid reflux(Confirmed) Active Gout(Confirmed) 2 Active HTN - Hypertension(Confirmed) 3 Active Hyperlipidemia(Confirmed) 4 Active Obesity(Confirmed) 5 Active Osteoarthritis of right knee joint(Confirmed) Active Shoulder joint pain(Confirmed) Active 1Records from Dr. Riley Diane, [facility] 2Records from Dr. Riley Diane, [facility] 3Records from Dr. Riley Diane, [facility] 4Records from Dr. Riley Diane, [facility] 5Records from Dr. Riley Diane, [facility] Procedures Procedure Date Related Diagnosis Body Site Status Left total knee arthroplasty. 12/02/21 Completed Screening colonoscopy (Repeat 2021) 1 12/01/16 Completed Appendectomy 2 Completed Cholecystectomy 3 Complet ed Removal of cataract 4 Com pleted 12 mm sessile polyp Records from Dr. Riley Diane, [facility] 2Records from Dr. Riley Diane, [facility] 3Records from Dr. Riley Diane, [facility] 4Records from Dr. Riley Diane, [facility] Vital Signs Most recent to oldest [Reference Range]: 1 Temperature Tympanic [36.6-37.9 Deg C] 3 5.5 Deg C *LOW* (03/23/22 9:31 AM) Peripheral Pulse Rate [60-100 bpm] 64 bp m (03/23/22 9:31 AM) Respiratory Rate [12-24 br/min] 16 br/mi n (03/23/22 9:31 AM) Blood Pressure [90-140/60-90 mmHg] 138/8 4mmHg (03/23/22 9:31 AM) Weight 108.3 kg (03/23/22 9:31 AM) Weight Measured (lbs) 238.76 lb (03/23/22 9:31 AM) [place] Body Weight Calculated 68.201 kg (03/23/22 9:31 AM) Height 172.5 cm (03/23/22 9:31 AM) Height/Length Measured (inches) 67.91 in ch (03/23/22 9:31 AM) BSA Measured 2.28 m2 (03/23/22 9:31 AM) Body Mass Index 36.4 kg/m2 (03/23/22 9:31 AM) Social History Social History Type Response Smoking Status Never (less than 100 in lifetime) entered on: 06/16/21 Sex Patient Care team information Personnel Name: JARRETT MOHR MSN,DRUG ABUSE PROGRAM COORDINATOR- Address: Address: [address] [place], [place] [address]
--- OUTSIDE RECORDS SUMMARY | 2023-03-20 19:15 | XMS_ITS | Continuity of Care Document ---
Author Name Unknown Organization [facility] ter Address [address] [place] [address] Care Team Providers Care Systems Analyst Developer Name Role Phone JARRETT MOHR Primary Care Physician [phone] Encounter [facility] [id number] Date(s): 05/26/22 - 05/26/22 [facility] [address] [place] [address] Discharge Disposition: Home or Self Care Attending Physician: SARAI BOWEN MSN,AGACNP-BC,RADIO PROGRAM DIRECTOR-BC Admitting Physician: SARAI BOWEN MSN,AGACNP-BC,RADIO PROGRAM DIRECTOR-BC Referring Physician: SARAI BOWEN MSN,AGACNP-BC,RADIO PROGRAM DIRECTOR-BC Allergies, Adverse Reactions, Alerts No Known Medication [...] activity, # 10 tab, 0 Refill(s), Pharmacy: [facility] Start Date: 07/01/21 Status: Ordered Tylenol 8 HR Arthritis Pain 650 mg oral tablet, extended release 1,300 mg = 2 tab, Oral, every 8 hr, PRN as needed for pain Start Date: 04/22/22 Status: Ordered vancomycin 1 g/200 mL-D5% intravenous solution 2 g =, IV, every 24 hr, will be recieving through the [facility], # 42 EA, 0 [...] Confirmed Active 1Records from Dr. Riley Diane, [facility] 2Records from Dr. Riley Diane, [facility] 3Records from Dr. Riley Diane, [facility] 4Records from Dr. Riley Diane, [facility] 5Records from Dr. Riley Diane, [facility] Procedures Procedure Date Related Diagnosis Body Site Status Right total knee arthroplasty. 04/21/22 Completed Left total knee arthroplasty. 12/02/21 Completed Screening colonoscopy (Repeat 2021) 1 12/01/16 Completed Appendectomy 2 Completed Cholecystectomy 3 Complet ed Removal of cataract 4 Com pleted 12 mm sessile polyp Records from Dr. Riley Diane, [facility] 2Records from Dr. Riley Diane, [facility] 3Records from Dr. Riley Diane, [facility] 4Records from Dr. Riley Diane, [facility] Results Laboratory List Name Date Creatinine 05/26/22 Vancomycin Lvl Trough 05/26/22 Most recent to oldest [Reference Range]: 1 Vanco Tr [10.0-20.0 mcg/mL] 13.7 mcg/mL (05/26/22 9:19 AM) eGFR Non-AA [>=60 mL/min/1.73 m2] 82 mL/ min/1.73 m2 (05/26/22 9:19 AM) eGFR AA [>=60 mL/min/1.73 m2] 99 mL/min/ 1.73 m2 (05/26/22 9:19 AM) Creatinine Level [0.66-1.25 mg/dL] 0.90 mg/dL (05/26/22 9:19 AM) Social History Social History Type Response Smoking Status Never (less than 100 in lifetime) entered on: 06/16/21 Sex Patient Care team information Personnel Name: JARRETT MOHR MSN,RADIO PROGRAM DIRECTOR- Address: Address: [address]
--- OUTSIDE RECORDS SUMMARY | 2023-03-20 19:15 | XMS_ITS | Continuity of Care Document ---
Author Name Unknown Organization [facility] ter Address [address] [place] [address] Care Team Providers Care Cylinder Press Feeder Name Role Phone JARRETT MOHR Primary Care Physician Encounter REGM_[place] Date(s): 10/20/22 - 10/20/22 [facility] [address] [place] [address] Discharge Disposition: Home or Self Care Attending Physician: DON TRIPP Admitting Physician: DON TRIPP Referring Physician: JARRETT MOHR MSN,SOLID WASTE ENGINEER-BC Allergies, Adverse Reactions, Alerts Substance Reaction Severity [...] Pharmacy: [facility], 172.08, cm, 06/28/22 12:24:00 HOUSE PAINTER HELPER, Height/Length Dosing, 109.5, kg, 06/26/22 12:11:00 HOUSE PAINTER HELPER, Weight Dosing Start Date: 08/31/22 Status: Ordered furosemide 20 mg oral tablet 20 mg = 1 tab, Oral, Daily, PRN other (see comment), take 1 tab as needed for swelling, # 5 tab, 0 Refill(s), Pharmacy: [facility], 172.08, cm, 06/28/22 12:24:00 HOUSE PAINTER HELPER, Height/Length Dosing, 109.5, kg, 06/26/22 12:11:00 HOUSE PAINTER HELPER, Weight Dosing Start Date: 06/30/22 Status: Ordered furosemide 20 mg oral tablet 40 mg = 2 tab, Oral, BID, # 8 tab, 0 Refill(s), Pharmacy: [facility], 172.08, cm, 06/26/22 12:11:00 HOUSE PAINTER HELPER, Height/Length Dosing, 109.5, kg, 06/26/22 12:11:00 HOUSE PAINTER HELPER, Weight Dosing Start Date: 06/28/22 Status: Ordered furosemide 40 mg oral tablet 40 mg = 1 tab, Oral, BID, # 30 tab, 0 Refill(s), Pharmacy: [facility], 172.08, cm, 06/26/22 12:11:00 HOUSE PAINTER HELPER, Height/Length Dosing, 109.5, kg, 06/26/22 12:11:00 HOUSE PAINTER HELPER, Weight Dosing Start Date: 06/28/22 Status: Ordered glipiZIDE 10 mg oral tablet 5 mg = 0.5 tab, Oral, Daily, # 180 tab, 1 Refill(s), Pharmacy: [facility], 172.08, cm, 05/15/22 18:25:00 HOUSE PAINTER HELPER, Height/Length Dosing, 106.4, kg, 05/15/22 18:25:00 HOUSE PAINTER HELPER, Weight Dosing Start Date: 05/28/22 Status: Ordered irbesartan 300 mg oral tablet 1 tab, Oral, Daily, # 90 tab, 1 Refill(s), [facility], 172.08, cm, 06/28/22 12:24:00 HOUSE PAINTER HELPER, Height/Length Dosing, 109.5, kg, 06/26/22 12:11:00 HOUSE PAINTER HELPER, Weight Dosing Start Date: 06/30/22 Status: Ordered Libre2 sensors Libre2 sensors, please dispense 2 sensors with a refill. thanks - patient has a coupon card, Supply, See Instructions, # 1 EA, 0 Refill(s), Pharmacy: [facility] Start Date: 09/11/21 Status: Ordered metFORMIN 1000 mg oral tablet 1 tab, Oral, BID, # 180 tab, 1 Refill(s), [facility], 172.08, cm, 06/28/22 12:24:00 HOUSE PAINTER HELPER,Height/Length Dosing, 109.5, kg, 06/26/22 12:11:00 HOUSE PAINTER HELPER, Weight Dosing Start Date: 06/30/22 Status: Ordered propranolol 120 mg oral capsule, extended release 1 cap, Oral, Daily, # 90 cap, 1 Refill(s), [facility], 172.08, cm, 06/28/22 12:24:00 HOUSE PAINTER HELPER, Height/Length Dosing, 109.5, kg, 06/26/22 12:11:00 HOUSE PAINTER HELPER, Weight Dosing Start Date: 06/30/22 Status: Ordered sildenafil 25 mg oral tablet 25 mg = 1 tab, Oral, Daily, 1 hour before sexual activity, # 10 tab, 0 Refill(s), Pharmacy: [facility] Start Date: 07/01/21 Status: Ordered Tylenol [...] Riley Diane, [facility] 2Records from Dr. Riley Diane, [facility] 3Records from Dr. Riley Diane, [facility] 4Records from Dr. Riley Diane, [facility] 5Records from Dr. Riley Diane, [facility] Procedures Procedure Date Related Diagnosis Body Site [...] Riley Diane, [facility] 3Records from Dr. Riley Diane, [facility] 4Records from Dr. Riley Diane, [facility] 5Records from Dr. Riley Diane, [facility] Social History Social History Type Response Tobacco Never tobacco user T obacco Use:. Sex Patient Care team information Care Team Personnel Name: JARRETT MOHR MSN,SOLID WASTE ENGINEER- Position: Nurse Practitioner Member Role: Informed Provider Address: Address: [address] [place] [address]- Name: KALEE GUO MSN,SOLID WASTE ENGINEER-BC Position: Nurse Practitioner Member Role: Nurse Practitioner Address: Address: [address] [place] [address]- Name: SARAI BOWEN MSN,[facility]SOLID WASTE ENGINEER- Position: Nurse Practitioner Member Role: Nurse Practitioner Address: Address: [address] [place] [id number] Care Team Related Persons Name: MARGARITO MOYERA Address: Home [address] [place] [phone]
--- OUTSIDE RECORDS SUMMARY | 2023-03-20 19:15 | XMS_ITS | Continuity of Care Document ---
Author Name Unknown Organization [facility] ter Address [address] [place] [address] Care Team Providers Care Business Analytics Director Name Role Phone JARRETT MOHR Primary Care Physician Encounter REGM_[place] Date(s): 03/20/22 - 03/20/22 [facility] [address] [place] [address] Discharge Disposition: Home or Self Care Attending Physician: ASIYA DONATO MD Admitting Physician: ASIYA DONATO MD Referring Physician: JARRETT MOHR MSN,YOUTH PROGRAM DIRECTOR- Allergies, Adverse Reactions, Alerts No Known Medication Allergies Assessment and Plan Future Appointments Future Scheduled Tests Laboratory* SARS-CoV-2 (COVID-19) RNA (ID Now) 04/16/22 Immunizations Given and Recorded Vaccine Date Status Refusal Reason SARS-COV-2 mRNA-1273 bivalent booster 03/11/22 Giv en SARS-CoV-2 (COVID-19) mRNA-1273 vaccine 10/24/21 G iven SARS-CoV-2 (COVID-19) mRNA-1273 vaccine 04/25/21 R ecorded SARS-CoV-2 (COVID-19) mRNA-1273 vaccine 09/13/20 R ecorded SARS-CoV-2 (COVID-19) mRNA-1273 vaccine 08/16/20 R ecorded zoster vaccine, inactivated 06/16/21 Given zoster vaccine, inactivated 05/23/19 Recorded influenza virus vaccine, inactivated 04/03/21 Jalil rded influenza virus vaccine, inactivated 04/29/20 Give n tetanus/diphth/pertuss (Tdap) adult/adol 05/23/19 Recorded influenza, unspecified formulation 05/23/19 Record ed pneumococcal 13-valent conjugate vaccine 04/02/15 Recorded zoster vaccine live 01/26/11 Recorded pneumococcal 23-polyvalent vaccine 01/26/11 Record ed Medications acetaminophen 500 mg oral tablet 1,000 mg = 2 tab, Oral, every 6 hr, PRN pain, 0 Refill(s) Start Date: 12/03/21 Status: Ordered allopurinol 300 mg oral tablet 1 tab, Oral, Daily, # 90 tab, 1 Refill(s), [facility]acy: [facility], 172, cm, 12/03/21 13:07:00 CDT, Height/Length Dosing, 112, kg, 12/03/21 13:07:00 CDT, Weight Dosing Start Date: 12/23/21 Status: Ordered aspirin 325 mg oral tablet 325 mg = 1 tab, Oral, Daily, 0 Refill(s) Start Date: 12/03/21 Status: Ordered atorvastatin 80 mg oral tablet 1 tab, Oral, Daily, # 90 tab, 1 Refill(s), Pharmacy: [facility], 172, cm, 12/03/21 13:07:00 CDT, Height/Length Dosing, 112, kg, 12/03/21 13:07:00 CDT, Weight Dosing Start Date: 01/23/22 Status: Ordered CeleBREX 200 mg oral capsule 400 mg = 2 cap, Oral, With Morning Meal, Do not take additional NSAIDS, # 28 cap, 0 Refill(s), Pharmacy: [facility], 172, cm, 12/02/21 18:00:00 CDT, Height/Length Dosing, 112, kg, 12/02/21 18:00:00 CDT, Weight Dosing Start Date: 12/03/21 Stop Date: 12/17/21 Status: Ordered Colace 100 mg oral capsule 100 mg = 1 cap, Oral, BID, PRN constipation, 0 Refill(s) Start Date: 12/03/21 Status: Ordered Contour Next Test Strips Contour Next Test Strips, check blood sugar BID, Supply, See Instructions, # 100 EA, 5 Refill(s), [facility]acy: [facility] Start Date: 07/01/21 Status: Ordered FreeStyle Nadira 2 Sensor kit FreeStyle Nadira 2 Sensor kit, See Instructions, USE DIRECTED, # 2 kits, 5 Refill(s), Pharmacy: [facility], 172, cm, 12/03/21 13:07:00 CDT, Height/Length Dosing, 112, kg, 12/03/21 13:07:00 CDT, Weight Dosing Start Date: 03/09/22 Status: Ordered FreeStyle Nadira 2 Sensor kit FreeStyle Nadira 2 Sensor kit, See Instructions, USE DIRECTED, # 2 kits, 1 Refill(s), [facility], 172, cm, 12/03/21 13:07:00 CDT, Height/Length Dosing, 112, kg, 12/03/21 13:07:00 CDT, Weight Dosing Start Date: 01/05/22 Status: Ordered FreeStyle Nadira 2 Sensor kit FreeStyle Nadira 2 Sensor kit, See Instructions, USE DIRECTED, # 2 kits, 1 Refill(s), Pharmacy: [facility] Start Date: 10/29/21 Status: Ordered glipiZIDE 10 mg oral tablet [...] # 1 EA, 0 Refill(s), Pharmacy: [facility] Start Date: 09/11/21 Status: Ordered metFORMIN 1000 mg oral tablet 1 tab, Oral, BID, # 180 tab, 1 Refill(s), [facility]: [facility], 172, cm, 12/03/21 13:07:00 CDT, Height/Length Dosing, 112, kg, 12/03/21 13:07:00 CDT, Weight Dosing Start Date: 12/23/21 Status: Ordered nabumetone 500 mg oral tablet 500 mg = 1 tab, Oral, BID, # 60 tab, 0 Refill(s) Start Date: 10/24/21 Status: Ordered omeprazole 20 mg oral delayed release capsule 1 cap, Oral, Daily, # 90 cap, 1 Refill(s), Pharmacy: [facility], [facility], cm, 12/03/21 13:07:00 CDT, Height/Length Dosing, 112, kg, 12/03/21 13:07:00 CDT, Weight Dosing Start Date: 12/23/21 Status: Ordered oxyCODONE 5 mg oral tablet 10 mg = 2 tab, Oral, every 6 hr, PRN pain, moderate, # 24 tab, 0 Refill(s), Pharmacy: [facility], 172, cm, 12/02/21 18:00:00 CDT, Height/Length Dosing, 112, kg, 12/02/21 18:00:00 CDT, Weight Dosing Start Date: 12/03/21 Status: Ordered pregabalin 75 mg oral capsule 75 mg = 1 cap, Oral, BID, # 8 cap, 0 Refill(s), Pharmacy: [facility], 172, cm, 12/02/21 18:00:00 CDT, Height/Length Dosing, 112, kg, 12/02/21 18:00:00 CDT, Weight Dosing Start Date: 12/03/21 Stop Date: 12/07/21 Status: Ordered propranolol 120 mg oral capsule, [...] [facility] Start Date: 07/[facility]/21 Status: Ordered Problem List Condition Effective Dates Status Health Status Inform ant Arthritis of left knee(Confirmed) Active Diabetes mellitus type II(Confirmed) 1 Active Erectile dysfunction(Confirmed) Active Acid reflux(Confirmed) Active Gout(Confirmed) 2 Active HTN - Hypertension(Confirmed) 3 Active Hyperlipidemia(Confirmed) 4 Active Obesity(Confirmed) 5 Active Osteoarthritis of right knee joint(Confirmed) Active Shoulder joint pain(Confirmed) Active 1Records from Dr. Riley Diane, [facility] 2Records from Dr. Riley Diane, [facility] 3Records from Dr. Riley Diane, [facility] 4Records from Dr. Riley Diane, [facility] 5Records from Dr. Riley Diane, [facility] Procedures Procedure Date Related Diagnosis Body Site Status Left total knee arthroplasty. 12/02/21 Completed Screening colonoscopy (Repeat 2021) 1 12/01/16 Completed Appendectomy 2 Completed Cholecystectomy 3 Complet ed Removal of cataract 4 Com pleted 12 mm sessile polyp Records from Dr. Riley Diane, [facility] 2Records from Dr. Riley Diane, [facility] 3Records from Dr. Riley Diane, [facility] 4Records from Dr. Riley Diane, [facility] Results Laboratory List Name Date Microalbumin/Creatinine Ratio Urine 03/20 Urinalysis Complete with Culture if Kristan cated 03/20/22 Urinalysis Microscopic 03/20/22 ABO/Rh 03/20/22 Antibody Screen Gel 2 03/20/22 Automated Diff 03/20/22 CBC w/ Diff 03/20/22 Comprehensive Metabolic Panel (CMP) 03/20 Hgb A1c 03/20/22 Sedimentation Rate (ESR) 03/20/22 Staph Nasal Complete (GeneXpert) (MRSA/M SSA Nasal (GeneXpert)) 03/20/22 Most recent to oldest [Reference Range]: 1 WBC [4.0-10.5 x10^3/mcL] 8.1 x10^3/mcL (03/20/22 9:04 AM) RBC [4.40-5.80 x10^6/mcL] 4.87 x10^6/mcL (03/20/22 9:04 AM) Neutro Auto [40.0-75.0 %] 71.1 % (03/20/22 9:04 AM) Lymph Auto [19.0-45.0 %] 15.9 % *LOW* (03/20/22 9:04 AM) [place] Auto [1.0-13.0 %] 8.3 % (03/20/22 9:04 AM) Basophil Auto [0.0-2.0 %] 0.6 % (03/20/22 9:04 AM) BUN [6-20 mg/dL] 18 mg/dL (03/20/22 9:04 AM) UA Color Yellow (03/20/22 9:10 AM) UA WBC [0-3 /HPF] 0-3 /HPF (03/20/22 9:10 AM) ABO/Rh Type O NEG *Unknown* (03/20/22 9:04 AM) Glucose Level [70-100 mg/dL] 122 mg/dL *HI* (03/20/22 9:04 AM) Potassium Level [3.5-5.5 mmol/L] 4.7 mmo l/L (03/20/22 9:04 AM) Baso Absolute [0.00-0.20 x10^3/mcL] 0.05 x10^3/mcL (03/20/22 9:04 AM) MCV [78-100 fL] 91 fL (03/20/22 9:04 AM) UA Urobilinogen 0.2 IntlUnit/dL *NA* (03/20/22 9:10 AM) UA Bili [Negative] Negative (03/20/22 9:10 AM) UA Ketones [Negative] Negative (03/20/22 9:10 AM) AST [0-41 unit/L] 27 unit/L (03/20/22 9:04 AM) ALT [6-45 unit/L] 27 unit/L (03/20/22 9:04 AM) MCHC [31.0-36.0 %] 31.9 % (03/20/22 9:04 AM) Sodium Level [135-150 mmol/L] 140 mmol/L (03/20/22 9:04 AM) UA RBC [None Seen /HPF] None Seen /HPF (03/20/22 9:10 AM) UA Leuk Est [Negative] Negative (03/20/22 9:10 AM) Lymph Absolute [1.09-3.58 x10^3/mcL] 1.2 9 x10^3/mcL (03/20/22 9:04 AM) UA Nitrite [Negative] Negative (03/20/22 9:10 AM) UA Glucose [Negative] Negative (03/20/22 9:10 AM) Hct [41.0-51.0 %] 44.5 % (03/20/22 9:04 AM) UA Bacteria [Negative /HPF] Negative /HP F (03/20/22 9:10 AM) Calcium Level [8.4-10.4 mg/dL] 9.9 mg/dL (03/20/22 9:04 AM) [place] Absolute [0.20-9.50 x10^3/mcL] 0.67 x10^3/mcL (03/20/22 9:04 AM) Albumin Level [3.5-5.2 g/dL] 4.6 g/dL (03/20/22 9:04 AM) Protein Total [5.9-8.4 g/dL] 7.0 g/dL (03/20/22 9:04 AM) UA Protein [Negative] Negative (03/20/22 9:10 AM) MCH [26.0-33.0 pg] 29.2 pg (03/20/22 9:04 AM) Neutro Absolute [1.54-7.22 x10^3/mcL] 5. 75 x10^3/mcL (03/20/22 9:04 AM) Bilirubin Total [0.2-1.2 mg/dL] 0.6 mg/d L (03/20/22 9:04 AM) Hgb [13.5-17.0 g/dL] 14.2 g/dL (03/20/22 9:04 AM) Alk Phos [40-150 unit/L] 41 unit/L (03/20/22 9:04 AM) UA Blood [Negative] Negative (03/20/22 9:10 AM) MPV 10 *NA* (03/20/22 9:04 AM) UA Spec Grav [1.003-1.035] 1.020 (03/20/22 9:10 AM) Platelets [130-400 x10^3/mcL] 283 x10^3/ mcL (03/20/22 9:04 AM) CO2 [22-32 mmol/L] 26 mmol/L (03/20/22 9:04 AM) Eos Absolute [0.15-0.50 x10^3/mcL] 0.30 x10^3/mcL (03/20/22 9:04 AM) UA Squam Epithelial [0-3 /HPF] 0-3 /HPF (03/20/22 9:10 AM) UA pH 5.0 *NA* (03/20/22 9:10 AM) eGFR Non-AA [>=60 mL/min/1.73 m2] 73 mL/ min/1.73 m2 (03/20/22 9:04 AM) eGFR AA [>=60 mL/min/1.73 m2] 88 mL/min/ 1.73 m2 (03/20/22 9:04 AM) eAvg Glucose [90-136 mg/dL] 151 mg/dL *HI* (03/20/22 9:04 AM) UA Appear [Clear] Clear (03/20/22 9:10 AM) U Creatinine 131.1 mg/dL *NA* (03/20/22 9:10 AM) Chloride Level [95-110 mmol/L] 103 mmol/ L (03/20/22 9:04 AM) RDW-CV [11.0-15.0 %] 13.6 % (03/20/22 9:04 AM) A/G Ratio [1.0-2.5 ratio] 1.9 ratio (03/20/22 9:04 AM) BUN/Creat Ratio [6.0-22.0 ratio] 18.0 ra viri (03/20/22 9:04 AM) Globulin [1.5-3.7 g/dL] 2.4 g/dL (03/20/22 9:04 AM) U Microalb/Creat [<=21.0 mg/g Cr] 25.2 m g/g Cr *HI* (03/20/22 9:10 AM) U Microalb [<=24.0 mg/L] 33.0 mg/L *HI* (03/20/22 9:10 AM) Imm Gran Absolute [0.00-0.09 x10^3/mcL] 0.03 x10^3/mcL (03/20/22 9:04 AM) Imm Gran Auto [0.00-5.00 %] 0.40 % (03/20/22 9:04 AM) NRBC Auto [0.0-1.0 /100 WBC] 0.0 /100 WB C (03/20/22 9:04 AM) MRSA Screen -GeneXpert [Negative] Negati ve (03/20/22 8:59 AM) NRBC Absolute 0.00 x10^3/mcL *NA* (03/20/22 9:04 AM) UA Culture Ind?. Not Indicated (03/20/22 9:10 AM) Urine Srce Clean Catch (03/20/22 9:10 AM) Antibody Screen Gel 2 Interp NEG (03/20/22 9:04 AM) Hgb A1c Percent [4.8-6.0 %] 6.9 % *HI* (03/20/22 9:04 AM) MSSA Screen -GeneXpert [Negative] Positi ve *ABN* (03/20/22 8:59 AM) Creatinine Level [0.66-1.25 mg/dL] 1.00 mg/dL (03/20/22 9:04 AM) Anion Gap [3.0-11.0 mmol/L] 11.0 mmol/L (03/20/22 9:04 AM) Eos, Auto [0.0-7.0 %] 3.7 % (03/20/22 9:04 AM) ESR, Westergren [0-15 mm/hr] 16 mm/hr *HI* (03/20/22 9:04 AM) Social History Social History Type Response Smoking Status Never (less than 100 in lifetime) entered on: 06/16/21 Sex Patient Care team information Personnel Name: JARRETT MOHR MSN,[facility]- Address: Address: [address]
--- OUTSIDE RECORDS SUMMARY | 2023-03-20 19:15 | XMS_ITS | Continuity of Care Document ---
Author Name Unknown Organization [facility] ter Address [address] [place] [address] Care Team Providers Care Supervisor Public Health Nursing Name Role Phone JARRETT MOHR Primary Care Physician [phone] Encounter REG_[place] Date(s): 07/03/22 - 07/03/22 [facility] [address] [place] [address] Discharge Disposition: Home or Self Care Attending Physician: JARRETT MOHR MSN,PROCUREMENT MANAGER-BC Admitting Physician: JARRETT MOHR MSN,PROCUREMENT MANAGER-BC Referring Physician: JARRETT MOHR MSN,PROCUREMENT MANAGER-BC Allergies, Adverse Reactions, Alerts Substance Reaction Severity Status vancomycin Acute kidney injury due to nephrotoxicity Angioedema Rash Severe Active Assessment and Plan Future Scheduled Tests Laboratory* Basic Metabolic Panel 07/10/22 Immunizations Given and Recorded Vaccine Date Status [...] [facility]acy: [facility], 172.08, cm, 06/28/22 12:24:00 PLANT AND MAINTENANCE TECHNICIAN, Height/Length Dosing, 109.5, kg, 06/26/22 12:11:00 PLANT AND MAINTENANCE TECHNICIAN, Weight Dosing Start Date: 06/30/22 Status: Ordered furosemide 20 mg oral tablet 40 mg = 2 tab, Oral, BID, # 8 tab, 0 Refill(s), Pharmacy: [facility], 172.08, cm, 06/26/22 12:11:00 PLANT AND MAINTENANCE TECHNICIAN, Height/Length Dosing, 109.5, kg, 06/26/22 12:11:00 PLANT AND MAINTENANCE TECHNICIAN, Weight Dosing Start Date: 06/28/22 Status: Ordered furosemide 40 mg oral tablet 40 mg = 1 tab, Oral, BID, # 30 tab, 0 Refill(s), [facility]: [facility], 172.08, cm, 06/26/22 12:11:00 PLANT AND MAINTENANCE TECHNICIAN, Height/Length Dosing, 109.5, kg, 06/26/22 12:11:00 PLANT AND MAINTENANCE TECHNICIAN, Weight Dosing Start Date: 06/28/22 Status: Ordered glipiZIDE 10 mg oral tablet 5 mg = 0.5 tab, Oral, Daily, # 180 tab, 1 Refill(s), [facility]: [facility], 172.08, cm, 05/15/22 18:25:00 PLANT AND MAINTENANCE TECHNICIAN, Height/Length Dosing, 106.4, kg, 05/15/22 18:25:00 PLANT AND MAINTENANCE TECHNICIAN, Weight Dosing Start Date: 05/28/22 Status: Ordered irbesartan 300 mg oral tablet 1 tab, Oral, Daily, # 90 tab, 1 Refill(s), Pharmacy: [facility], 172.08, cm, 06/28/22 12:24:00 PLANT AND MAINTENANCE TECHNICIAN, Height/Length Dosing, 109.5, kg, 06/26/22 12:11:00 PLANT AND MAINTENANCE TECHNICIAN, Weight Dosing Start Date: 06/30/22 Status: Ordered Libre2 sensors Libre2 sensors, please dispense 2 sensors with a refill. thanks - patient has a coupon card, Supply, See Instructions, # 1 EA, 0 Refill(s), Pharmacy: [facility] Start Date: 09/11/21 Status: Ordered metFORMIN 1000 mg oral tablet 1 tab, Oral, BID, # 180 tab, 1 Refill(s), [facility]acy[facility], 172.08, cm, 06/28/22 12:24:00 PLANT AND MAINTENANCE TECHNICIAN,Height/Length Dosing, 109.5, kg, 06/26/22 12:11:00 PLANT AND MAINTENANCE TECHNICIAN, Weight Dosing Start Date: 06/30/22 Status: Ordered propranolol 120 mg oral capsule, extended release 1 cap, Oral, Daily, # 90 cap, 1 Refill(s), Pharmacy: [facility], 172.08, cm, 06/28/22 12:24:00 PLANT AND MAINTENANCE TECHNICIAN, Height/Length Dosing, 109.5, kg, 06/26/22 12:11:00 PLANT AND MAINTENANCE TECHNICIAN, Weight Dosing Start Date: 06/30/22 Status: Ordered sildenafil 25 mg oral tablet 25 mg = 1 tab, Oral, Daily, 1 hour before sexual activity, # 10 tab, 0 Refill(s), Pharmacy: [facility] Start Date: 07/01/21 Status: Ordered Tylenol [...] 1Records from Dr. Riley Diane, [facility] 2Records from Dr. Riley Diane, [facility] 3Records from Dr. Riley Diane, [facility] 4Records from Dr. Riley Diane, [facility] 5Records from Dr. Riley Diane, [facility] Procedures Procedure Date Related Diagnosis Body Site [...] Records from Dr. Riley Diane, [facility] 3Records from Dr. Riley Diane, [facility] 4Records from Dr. Riley Diane, [facility] 5Records from Dr. Riley Diane, [facility] Results Laboratory List Name Date Urinalysis Microscopic 07/03/22 Comprehensive Metabolic Panel (CMP) Urinalysis with Micro if Indicated and C ulture if Indicated 07/03/22 Most recent to oldest [Reference Range]: 1 BUN [6-20 mg/dL] 33 mg/dL *HI* (07/03/22 8:52 AM) UA Color Yellow (07/03/22 8:52 AM) UA WBC [0-3 /HPF] 0-3 /HPF (07/03/22 8:52 AM) Glucose Level [70-100 mg/dL] 278 mg/dL *HI* (07/03/22 8:52 AM) Potassium Level [3.5-5.5 mmol/L] 4.0 mmo l/L (07/03/22 8:52 AM) UA Urobilinogen 0.2 IntlUnit/dL *NA* (07/03/22 8:52 AM) UA Bili [Negative] Negative (07/03/22 8:52 AM) UA Ketones [Negative] Negative (07/03/22 8:52 AM) AST [0-41 unit/L] 27 unit/L (07/03/22 8:52 AM) ALT [6-45 unit/L] 27 unit/L (07/03/22 8:52 AM) Sodium Level [135-150 mmol/L] 136 mmol/L (07/03/22 8:52 AM) UA RBC [None Seen /HPF] None Seen /HPF (07/03/22 8:52 AM) UA Leuk Est [Negative] Negative (07/03/22 8:52 AM) UA Nitrite [Negative] Negative (07/03/22 8:52 AM) UA Glucose [Negative] Negative (07/03/22 8:52 AM) UA Bacteria [Negative /HPF] Negative /HP F (07/03/22 8:52 AM) Calcium Level [8.4-10.4 mg/dL] 8.6 mg/dL (07/03/22 8:52 AM) Albumin Level [3.5-5.2 g/dL] 4.1 g/dL (07/03/22 8:52 AM) Protein Total [5.9-8.4 g/dL] 6.1 g/dL (07/03/22 8:52 AM) UA Protein [Negative] 1+ *ABN* (07/03/22 8:52 AM) Bilirubin Total [0.2-1.2 mg/dL] 0.6 mg/d L (07/03/22 8:52 AM) Alk Phos [40-150 unit/L] 28 unit/L *LOW* (07/03/22 8:52 AM) UA Blood [Negative] Negative (07/03/22 8:52 AM) UA Spec Grav [1.003-1.035] 1.015 (07/03/22 8:52 AM) CO2 [22-32 mmol/L] 31 mmol/L (07/03/22 8:52 AM) UA Squam Epithelial [0-3 /HPF] 0-3 /HPF (07/03/22 8:52 AM) UA pH 5.5 *NA* (07/03/22 8:52 AM) eGFR Non-AA [>=60 mL/min/1.73 m2] 46 mL/ min/1.73 m2 *LOW* (07/03/22 8:52 AM) eGFR AA [>=60 mL/min/1.73 m2] 55 mL/min/ 1.73 m2 *LOW* (07/03/22 8:52 AM) UA Appear [Clear] Clear (07/03/22 8:52 AM) Chloride Level [95-110 mmol/L] 95 mmol/L (07/03/22 8:52 AM) A/G Ratio [1.0-2.5 ratio] 2.1 ratio (07/03/22 8:52 AM) BUN/Creat Ratio [6.0-22.0 ratio] 22.0 ra viri (07/03/22 8:52 AM) Globulin [1.5-3.7 g/dL] 2.0 g/dL (07/03/22 8:52 AM) UA Culture Ind?. Not Indicated *NA* (07/03/22 8:52 AM) Urine Srce Clean Catch (07/03/22 8:52 AM) Creatinine Level [0.66-1.25 mg/dL] 1.50 mg/dL *HI* (07/03/22 8:52 AM) Anion Gap [3.0-11.0 mmol/L] 10.0 mmol/L (07/03/22 8:52 AM) Social History Social History Type Response Tobacco Never tobacco user T obacco Use:. Sex Patient Care team information Personnel Name: JARRETT MOHR MSN,PROCUREMENT MANAGER-BC Address: Address: [address] [id number]
--- OUTSIDE RECORDS SUMMARY | 2023-03-20 19:15 | XMS_ITS | Continuity of Care Document ---
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) - 06/30/22 Irregular heart rate(Discharge Diagnosis) - 06/30/22 Discharge Disposition: Home or Self Care Attending Physician: JARRETT MOHR MSN,RECORD MAKER-BC Allergies, Adverse Reactions, Alerts Substance Reaction Severity Status vancomycin Acute kidney injury due to nephrotoxicity Angioedema Rash Severe Active Assessment and Plan Future Appointments Functional Status 06/30/22 Family Member Travel History No recent t [...] Instructions, # 100 EA, 5 Refill(s), Pharmacy: [facility] Start Date: 07/01/21 Status: Ordered furosemide 20 mg oral tablet 20 mg = 1 tab, Oral, Daily, PRN other (see comment), take 1 tab as needed for swelling, # 5 tab, 0 Refill(s), [facility], 172.08, cm, 06/28/22 12:24:00 BENCH ASSEMBLER BATTERY, Height/Length Dosing, 109.5, kg, 06/26/22 12:11:00 BENCH ASSEMBLER BATTERY, Weight Dosing Start Date: 06/30/22 Status: Ordered furosemide 20 mg oral tablet 40 mg = 2 tab, Oral, BID, # 8 tab, 0 Refill(s), Pharmacy: [facility], 172.08, cm, 06/26/22 12:11:00 BENCH ASSEMBLER BATTERY, Height/Length Dosing, 109.5, kg, 06/26/22 12:11:00 BENCH ASSEMBLER BATTERY, Weight Dosing Start Date: 06/28/22 Status: Ordered furosemide 40 mg oral tablet 40 mg = 1 tab, Oral, BID, # 30 tab, 0 Refill(s), [facility], 172.08, cm, 06/26/22 12:11:00 BENCH ASSEMBLER BATTERY, Height/Length Dosing, 109.5, kg, 06/26/22 12:11:00 BENCH ASSEMBLER BATTERY, Weight Dosing Start Date: 06/28/22 Status: Ordered glipiZIDE 10 mg oral tablet 5 mg = 0.5 tab, Oral, Daily, # 180 tab, 1 Refill(s), [facility]: [facility], 172.08, cm, 05/15/22 18:25:00 BENCH ASSEMBLER BATTERY, Height/Length Dosing, 106.4, kg, 05/15/22 18:25:00 BENCH ASSEMBLER BATTERY, Weight Dosing Start Date: 05/28/22 Status: Ordered irbesartan 300 mg oral tablet 1 tab, Oral, Daily, # 90 tab, 1 Refill(s), [facility]: [facility], 172.08, cm, 06/28/22 12:24:00 BENCH ASSEMBLER BATTERY, Height/Length Dosing, 109.5, kg, 06/26/22 12:11:00 BENCH ASSEMBLER BATTERY, Weight Dosing Start Date: 06/30/22 Status: Ordered Libre2 sensors Libre2 sensors, please dispense 2 sensors with a refill. thanks - patient has a coupon card, Supply, See Instructions, # 1 EA, 0 Refill(s), [facility]acy: [facility] Start Date: 09/11/21 Status: Ordered metFORMIN 1000 mg oral tablet 1 tab, Oral, BID, # 180 tab, 1 Refill(s), [facility]acy: [facility], 172.08, cm, 06/28/22 12:24:00 BENCH ASSEMBLER BATTERY,Height/Length Dosing, 109.5, kg, 06/26/22 12:11:00 BENCH ASSEMBLER BATTERY, Weight Dosing Start Date: 06/30/22 Status: Ordered propranolol 120 mg oral capsule, extended release 1 cap, Oral, Daily, # 90 cap, 1 Refill(s), [facility]acy: [facility], 172.08, cm, 06/28/22 12:24:00 BENCH ASSEMBLER BATTERY, Height/Length Dosing, 109.5, kg, 06/26/22 12:11:00 BENCH ASSEMBLER BATTERY, Weight Dosing Start Date: 06/30/22 Status: Ordered sildenafil 25 mg oral tablet 25 mg = 1 tab, Oral, Daily, 1 hour before sexual activity, # 10 tab, 0 Refill(s), Pharmacy: [facility] Start Date: 07/01/21 Status: Ordered Tylenol [...] Confirmed Active 1Records from Dr. Riley Diane, [facility] 2Records from Dr. Riley Diane, [facility] 3Records from Dr. Riley Diane [facility] 4Records from Dr. Riley Diane [facility] 5Records from Dr. Rilye Diane [facility] Procedures Procedure Date Related Diagnosis Body [...] sessile polyp Records from Dr. Riley Diane [facility] 3Records from Dr. Riley Diane, [facility] 4Records from Dr. Riley Diane, [facility] 5Records from Dr. Riley Diane, [facility] Vital Signs Most recent to oldest [Reference Range]: 1 2 Temperature Tympanic [36.6-37.9 Deg C] 3 6.2 Deg C *LOW* (06/30/22 10:33 AM) Peripheral Pulse Rate [60-100 bpm] 80 bp m (06/30/22 10:33 AM) Respiratory Rate [12-24 br/min] 16 br/mi n (06/30/22 10:33 AM) Blood Pressure [90-140/60-90 mmHg] 112/7 2mmHg (06/30/22 10:33 AM) Weight 104.8 kg (06/30/22 10:45 AM) 107.5 kg (06/30/22 10:33 AM) Weight Measured (lbs) 236.997 lb (06/30/22 10:33 AM) Social History Social History Type Response Tobacco Never tobacco user T obacco Use:. Sex Physician Outpatient Note * JARRETT MOHR MSN,RECORD MAKER-BC: PERFORM Event Display: Office Clinic Note Physician Authored Date: [id number] SUSHILA MOYERALD B :1945 Age:77 years Sex:Male Visit Date:06/30/2022 Primary Care Physician: JARRETT MOHR MSN,[facility]- Chief Complaint hospital follow up History of Present Illness Patient is here for a hospital follow up. He was admitted on 06/26 and stayed until 06/28/22. They pulled 5 1/2 liters of fluid off of him. He is still having issues with blood pressures being low. Yesterday he was feeling fatigued and took his blood pressure and it was 74/54. He took it multiple times throughout the day and today it was up to 106/74. They did not have him take his blood pressures pills while he was in the hospital. He took them yesterday but did not take them this morning. He did have a low blood sugar while he was in the hospital. Wednesday his weight was 229#. Yesterday 230# and today 229#. He is doesn't have much of an appetite but he is staying hydrated. He still feels like he is dehydrated a little bit.? He stopped his propranolol and Irbesartan. He was 247 prior to this, feeling much better today, however his blood sugars spike but he doesn't feel it as much, only when he is low. he is drinking as much fluid as he possibly can. he is weight himself daily. He did not take his glipizide this morning. Blood sugar was 97, creatine elevated and went to 263. Physical Exam Vitals & Measurements T:??36.2?C ??(Tympanic)?? HR:??80??(Peripheral)?? RR:??16?? BP:??112/72?? WT:??104.8??kg?? General: Alert, interactive, in NAD? Skin: Adequate perfusion Eyes:?? PERRL, EOMI, gaze conjugate Oropharynx:??Dry oralmucosa Neck: Supple,??Nolymphadenopathy? No thyroid enlargement or nodularity? Carotid pulses??not examined? Carotid bruit??not noted ? JVD??Absent?_ Heart:??Drops every??4th beet on??exam, no murmurs? Lungs:??Clear,??no signs of respiratory distress?? Extremities:??+1??edema.?? calf circumference was 15inches on the??left, 15.5 on the right, and ankles were down to 11 inches on the left and 11.5 on the right. Palpable PT pulses.?Skin in lower legs appears healthyLymphatics: Neurologic: Muscle tone normal and symmetric, no evident focal deficits? Gait is normal Depression Screening Depression Screen?? PHQ 2?? Feeling Down, Depressed, Hopeless: Not at all Initial Depression Screen Score: 0 Score Little Interest - Pleasure in Activities: Not at all Assessment/Plan 1.??Acute kidney injury??N17.9 ?? 2.??Hypertension??I10 ?? 3.??Infection of prosthetic right knee joint??T84.53XS ?? 4.??Irregular heart rate??I49.9 Ordered: Holter Monitor, 06/30/22, 48 hr, Order for future visit, Arrhythmia Referral Ambulatory, Cardiology, irregular heart rate, needs ECHO, 06/30/22 11:18:00 BENCH ASSEMBLER [employer]TERY, Irregularheart rate ?? Orders: irbesartan 300 mg oral tablet, 1 tab, Oral, Daily, # 90 tab, 1 Refill(s), [facility]: [facility], 172.08, cm, 06/28/22 12:24:00 BENCH ASSEMBLER [employer]TERY, Height/Length Dosing, 109.5, kg, 06/26/22 12:11:00 BENCH ASSEMBLER [employer]TERY, Weight Dosing metFORMIN 1000 mg oral tablet, 1 tab, Oral, BID, # 180 tab, 1 Refill(s), [facility]acy: [facility], 172.08, cm, 06/28/22 12:24:00 BENCH ASSEMBLER [employer]TERY, Height/Length Dosing, 109.5, kg, 06/26/22 12:11:00 BENCH ASSEMBLER [employer]TERY, Weight Dosing propranolol 120 mg oral capsule, extended release, 1 cap, Oral, Daily, # 90 cap, 1 Refill(s), Pharmacy: [facility], 172.08, cm, 06/28/22 12:24:00 BENCH ASSEMBLER BATTERY, Height/Length Dosing, 109.5, kg, 06/26/22 12:11:00 BENCH ASSEMBLER [employer]TERY, Weight Dosing Most likely atb. related, and fluid overloaded. B/p is low as well, better without medications.?? Ptn. creatine jumped from 2 to 2.3. today. Continue weight yourself daily- pending weight in morning- if you have gone up 2 pounds, take 20mg of lasix, otherwise stopped. morning the same and call update on with weight and b/p and blood sugars. Check b/p daily as well Stop the b/p medication for the time being- concerned the ARB causing iessues. Stop Glipizide. Metformin,?? hold- the rest of today, pending how your sugars are- If they are consistently above 200, or not feeling well do 500mg bid, Recheck cmp, UA on wednesday. Irregular HR-cardiology referral. Consult with nephrology about plan due to increased cr, or continue to monitor. Patient Instructions Continue weight yourself daily- pending weight in morning- if you have gone up 2 pounds, take 20mg of lasix. morning the same and call update on with weight and b/p and blood sugars. Check b/p daily as well Stop the b/p medication for the time being, Stop Glipizide. Metformin,?? hold- the rest of today, pending how your sugars are- If they are consistently above 200, or not feeling well do 500mg bid, Recheck cmp wednesday Irregular HR- Cardiology consult, 48 hour holter monitor. Consult with nephrology about plan due to increased cr. make appt. for wednesday. Referral Orders Referral Ambulatory, Cardiology, irregular heart rate, needs ECHO, 06/30/22 11:18:00 BENCH ASSEM[employer]ER [employer]TERY, Irregularheart rate Problem List/Past Medical History Ongoing Acid reflux [...] 5 refills furosemide 20 mg oral tablet, 40 mg= [...] 23-polyvalent vaccine 01/26/2011 Recorded Lab Results Last 24 Hours?? Chemistry ? Event Name?? Event Result?? Date/Time?? Sodium Level 136 mmol/L 06/30/22 08:17:00 Potassium Level 4.5 mmol/L 06/30/22 08:17:00 Chloride Level 89 mmol/L??Low 06/30/22 08:17:00 CO2 35 mmol/L??High 06/30/22 08:17:00 BUN 57 mg/dL??High 06/30/22 08:17:00 Glucose Level 206 mg/dL??High 06/30/22 08:17:00 Creatinine Level 2.3 mg/dL??High 06/30/22 08:17:00 BUN/Creat Ratio 24.8 ratio??High 06/30/22 08:17:00 eGFR AA 34 mL/min/1.73 m2??Low 06/30/22 08:17:00 eGFR Non-AA 28 mL/min/1.73 m2??Low 06/30/22 08:17:00 Calcium Level 9.2 mg/dL 06/30/22 08:17:00 Anion Gap 12 mmol/L??High 06/30/22 08:17:00 ? Electronically Signed on 06/30/22 12:13 PM JARRETT MOHR,RECORD MAKER- Patient Care team information Personnel Name: JARRETT MOHR,RECORD MAKER- Address: Address: [address]
--- OUTSIDE RECORDS SUMMARY | 2023-03-20 19:15 | XMS_ITS | Continuity of Care Document ---
Author Name Unknown Organization [facility] Address [address] [place] [address] Care Team Providers Care Reinsurance Accountant Name Role Phone JARRETT MOHR Primary Care Physician [phone] Encounter [place]GM_[place] Date(s): 01/04/23 - 01/04/23 Replaced By [facility] [address] [facility] [address] [place] [address]- Encounter Diagnosis Diabetes mellitus type II(Discharge Diagnosis) - 01/04/23 HTN - Hypertension(Discharge Diagnosis) - 01/04/23 Hyperlipidemia(Discharge Diagnosis) - 01/04/23 Obesity(Discharge Diagnosis) - 01/04/23 Diabetes(Discharge Diagnosis) - 01/04/23 Screening for colon cancer(Discharge Diagnosis) - 01/04/23 Discharge Disposition: Home or Self Care Attending Physician: JARRETT MOHR MSN,EXCEPTIONAL CHILDREN'S TEACHER-BC Allergies, Adverse Reactions, Alerts Substance Reaction Severity Status vancomycin Acute kidney injury due to nephrotoxicity Angioedema Rash Severe Active Functional Status 01/04/23 Other exposure to Infectious Disease Non e [...] pneumococcal 23-polyvalent vaccine 01/26/11 Record ed Medications amLODIPine 5 mg oral tablet 5 mg = 1 tab, Oral, Daily, 0 Refill(s) Start Date: 01/04/23 Status: Ordered Contour Next Test Strips Contour Next Test Strips, check blood sugar BID, Supply, See Instructions, # 100 EA, 5 Refill(s), [facility] Start Date: 07/01/21 Status: Ordered Eylea 40 mg/mL intraocular solution 0 Refill(s) Start Date: 01/04/23 Status: Ordered FreeStyle Nadira 2 Sensor kit FreeStyle Nadira 2 Sensor kit, See Instructions, USE DIRECTED, # 2 kits, 5 Refill(s), [facility]: [facility], 172.08, cm, 06/28/22 12:24:00 RECORD CUTTER, Height/Length Dosing, 109.5, kg, 06/26/22 12:11:00 RECORD CUTTER, Weight Dosing Start Date: 08/31/22 Status: Ordered furosemide 20 mg oral tablet 1 tab, Oral, Daily, PRN NEEDED FOR swelling, # 5 tab, 0 Refill(s), [facility]: [facility], 172.08, cm, 06/28/22 12:24:00 RECORD CUTTER, Height/Length Dosing, 109.5, kg, 06/26/22 12:11:00 RECORD CUTTER, Weight Dosing Start Date: 11/30/22 Status: Ordered glipiZIDE 10 mg oral tablet 5 mg = 0.5 tab, Oral, Daily, # 180 tab, 1 Refill(s), [facility]: [facility], 172.08, cm, 05/15/22 18:25:00 RECORD CUTTER, Height/Length Dosing, 106.4, kg, 05/15/22 18:25:00 RECORD CUTTER, Weight Dosing Start Date: 05/28/22 Status: Ordered Libre2 sensors Libre2 sensors, please dispense 2 sensors with a refill. thanks - patient has a coupon card, Supply, See Instructions, # 1 EA, 0 Refill(s), Pharmacy: [facility] Start Date: 09/11/21 Status: Ordered metFORMIN 1000 mg oral tablet 1 tab, Oral, BID, # 180 tab, 1 Refill(s), Pharmacy: [facility], 172.08, cm, 06/28/22 12:24:00 RECORD CUTTER,Height/Length Dosing, 109.5, kg, 06/26/22 12:11:00 RECORD CUTTER, Weight Dosing Start Date: 06/30/22 Status: Ordered propranolol 120 mg oral capsule, extended release 1 cap, Oral, Daily, # 90 cap, 1 Refill(s), [facility], 172.08, cm, 06/28/22 12:24:00 RECORD CUTTER, Height/Length Dosing, 109.5, kg, 06/26/22 12:11:00 RECORD CUTTER, Weight Dosing Start Date: 06/30/22 Status: Ordered sildenafil 25 mg oral tablet 25 mg = 1 tab, Oral, Daily, 1 hour before sexual activity, # 10 tab, 0 Refill(s), Pharmacy: [facility] Start Date: 07/01/21 Status: Ordered Tylenol [...] Confirmed Active 1Records from Dr. Riley Diane, [facility] 2Records from Dr. Riley Diane, [facility] 3Records from Dr. Riley Diane, [facility] 4Records from Dr. Riley Diane, [facility] 5Records from Dr. Riley Diane, [facility] Procedures Procedure Date Related Diagnosis Body [...] sessile polyp Records from Dr. Riley Diane, [facility] 3Records from Dr. Riley Diane, [facility] 4Records from Dr. Riley Diane, [facility] 5Records from Dr. Riley Diane, [facility] Results Laboratory List Name Date Microalbumin/Creatinine Ratio Urine 01/04 Comprehensive Metabolic Panel (CMP) 01/04 Hgb A1c 01/04/23 Most recent to oldest [Reference Range]: 1 BUN [6-20 mg/dL] 24 mg/dL *HI* (01/04/23 10:49 AM) Glucose Level [70-100 mg/dL] 181 mg/dL *HI* (01/04/23 10:49 AM) Potassium Level [3.5-5.5 mmol/L] 4.3 mmo l/L (01/04/23 10:49 AM) AST [0-41 unit/L] 24 unit/L (01/04/23 10:49 AM) ALT [6-45 unit/L] 21 unit/L (01/04/23 10:49 AM) Sodium Level [135-150 mmol/L] 139 mmol/L (01/04/23 10:49 AM) Calcium Level [8.4-10.4 mg/dL] 10.0 mg/d L (01/04/23 10:49 AM) Albumin Level [3.5-5.2 g/dL] 4.3 g/dL (01/04/23 10:49 AM) Protein Total [5.9-8.4 g/dL] 6.6 g/dL (01/04/23 10:49 AM) Bilirubin Total [0.2-1.2 mg/dL] 0.5 mg/d L (01/04/23 10:49 AM) Alk Phos [40-150 unit/L] 31 unit/L *LOW* (01/04/23 10:49 AM) CO2 [22-32 mmol/L] 29 mmol/L (01/04/23 10:49 AM) eGFR Non-AA [>=60 mL/min/1.73 m2] 42 mL/ min/1.73 m2 *LOW* (01/04/23 10:49 AM) eGFR AA [>=60 mL/min/1.73 m2] 51 mL/min/ 1.73 m2 *LOW* (01/04/23 10:49 AM) eAvg Glucose [90-136 mg/dL] 177 mg/dL *HI* (01/04/23 10:49 AM) U Creatinine 77.4 mg/dL *NA* (01/04/23 10:54 AM) Chloride Level [95-110 mmol/L] 100 mmol/ L (01/04/23 10:49 AM) A/G Ratio [1.0-2.5 ratio] 1.8 ratio (01/04/23 10:49 AM) BUN/Creat Ratio [6.0-22.0 ratio] 15.0 ra viri (01/04/23 10:49 AM) Globulin [1.5-3.7 g/dL] 2.3 g/dL (01/04/23 10:49 AM) U Microalb/Creat [<=21.0 mg/g Cr] 115.9 mg/g Cr *HI* (01/04/23 10:54 AM) U Microalb [<=24.0 mg/L] 89.7 mg/L *HI* (01/04/23 10:54 AM) Hgb A1c Percent [4.8-6.0 %] 7.8 % *HI* (01/04/23 10:49 AM) Creatinine Level [0.66-1.25 mg/dL] 1.60 mg/dL *HI* (01/04/23 10:49 AM) Anion Gap [3.0-11.0 mmol/L] 10.0 mmol/L (01/04/23 10:49 AM) Vital Signs Most recent to oldest [Reference Range]: 1 Peripheral Pulse Rate [60-100 bpm] 68 bp m (01/04/23 9:59 AM) Blood Pressure [90-140/60-90 mmHg] 138/9 4mmHg (01/04/23 9:59 AM) Weight 107 kg (01/04/23 9:59 AM) Weight Measured (lbs) 235.894 lb (01/04/23 9:59 AM) [place] Body Weight Calculated 67.748 kg (01/04/23 9:59 AM) Height 172 cm (01/04/23 9:59 AM) Height/Length Measured (inches) 67.72 in ch (01/04/23 9:59 AM) BSA Measured 2.26 m2 (01/04/23 9:59 AM) Body Mass Index 36.17 kg/m2 (01/04/23 9:59 AM) Social History Social History Type Response Tobacco Never tobacco user T obacco Use:. Sex Patient Care team information Care Team Personnel Name: JARRETT MOHR MSN,EXCEPTIONAL CHILDREN'S TEACHER-BC Position: Nurse Practitioner Member Role: Informed Provider Address: Address: [address] [place] [address] Name: KALEE GUO MSN,EXCEPTIONAL CHILDREN'S TEACHER-BC Position: Nurse Practitioner Member Role: Nurse Practitioner Address: Address: [address] [place] [address] Name: SARAI BOWEN MSN,AGACNP-BC,EXCEPTIONAL CHILDREN'S TEACHER-BC Position: Nurse Practitioner Member Role: Nurse Practitioner Address: Address: [address] [place] [address] Care Team Related Persons Name: DENISE MOYER Address: Home [address] [place] [id number]
--- OUTSIDE RECORDS SUMMARY | 2023-03-20 19:15 | XMS_ITS | Continuity of Care Document ---
Author Name Unknown Organization [facility] ter Address [address] [place] [address] Care Team Providers Care Bisque Finisher Name Role Phone JARRETT MOHR Primary Care Physician Encounter [facility] [id number] Date(s): 06/17/22 - 06/17/22 [facility] [address] [place] [address] Discharge Disposition: Home or Self Care Attending Physician: GRZEGORZ VICENTE MD Admitting Physician: GRZEGORZ VICENTE MD Referring Physician: GRZEGORZ VICENTE MD Allergies, Adverse Reactions, Alerts Substance Reaction Severity Status vancomycin Facial swelling Orbital swelling Rash Moderate Active Assessment and Plan Future Appointments Appointment Date:06/23/2022 08:30:00 AM Scheduled Provider: Location:[facility] Appointment Type:IV Med Therapy 90 (REGM) Appointment Date:06/24/2022 09:15:00 AM Scheduled Provider: Location:[facility] Appointment Type:IV Med Therapy 90 (REGM) Appointment Date:06/25/2022 08:30:00 AM Scheduled Provider: Location:[facility] Appointment Type:IV Med Therapy 90 [...] Pharmacy: [facility], 172.08, cm, 05/15/22 18:25:00 IDENTITY ACCESS MANAGEMENT ARCHITECT, Height/Length Dosing, 106.4, kg, 05/15/22 18:25:00 IDENTITY ACCESS MANAGEMENT ARCHITECT, Weight Dosing Start Date: 06/17/22 Stop Date: [...] Pharmacy: [facility], 172.08, cm, 05/15/22 18:25:00 IDENTITY ACCESS MANAGEMENT ARCHITECT, Height/Length Dosing, 106.4, kg, 05/15/22 18:25:00 IDENTITY ACCESS MANAGEMENT ARCHITECT, Weight Dosing Start Date: 05/28/22 Status: Ordered [...] activity, # 10 tab, 0 Refill(s), Pharmacy: [facility] Start Date: 07/01/21 Status: Ordered Tylenol 8 HR Arthritis Pain 650 mg oral tablet, extended release 1,300 mg = 2 tab, Oral, every 8 hr, PRN as needed for pain Start Date: 04/22/22 Status: Ordered vancomycin 1 g/200 mL-D5% intravenous solution 2 g =, IV, every 24 hr, [place]ie[place] [facility] [place], # 42 EA, 0 [...] Confirmed Active 1Records from Dr. Riley Diane, [facility] 2Records from Dr. Riley Diane, [facility] 3Records from Dr. Riley Diane, [facility] 4Records from Dr. Riley Diane, [facility] 5Records from Dr. Riley Diane, [facility] Procedures Procedure Date Related Diagnosis Body [...] sessile polyp Records from Dr. Riley Diane, [facility] 3Records from Dr. Riley Diane, [facility] 4Records from Dr. Riley Diane, [facility] 5Records from Dr. Riley Diane, [facility] Results Laboratory List Name Date .Manual Differential (REGM) 06/17/22 C-Reactive Protein (CRP) 06/17/22 CBC w/ Manual Diff 06/17/22 Comprehensive Metabolic Panel (CMP) 05/29 07/19 Vancomycin Lvl Trough 06/17/22 Most recent to oldest [Reference Range]: 1 WBC [4.0-10.5 x10^3/mcL] 8.0 x10^3/mcL (06/17/22 9:09 AM) RBC [4.40-5.80 x10^6/mcL] 4.14 x10^6/mcL *LOW* (06/17/22 9:09 AM) Segs Man [40-74 %] 61 % (06/17/22 9:09 AM) Lymph Man [19-45 %] 13 % *LOW* (06/17/22 9:09 AM) Hemphill Man [1-13 %] 6 % (06/17/22 9:09 AM) Eos Man [0-7 %] 13 % *HI* (06/17/22 9:09 AM) BUN [6-20 mg/dL] 14 mg/dL (06/17/22 9:09 AM) Glucose Level [70-100 mg/dL] 186 mg/dL *HI* (06/17/22 9:09 AM) Potassium Level [3.5-5.5 mmol/L] 3.5 mmo l/L (06/17/22 9:09 AM) Vanco Tr [10.0-20.0 mcg/mL] 21.2 mcg/mL *HI* (06/17/22 9:09 AM) MCV [78-100 fL] 90 fL (06/17/22 9:09 AM) RBC Morph [Normal] Normal (06/17/22:09 AM) CRP [0.0-5.0 mg/L] 35.1 mg/L *HI* (06/17/22 9:09 AM) AST [0-41 unit/L] 54 unit/L *HI* (06/17/22 9:09 AM) ALT [6-45 unit/L] 85 unit/L *HI* (06/17/22 9:09 AM) MCHC [31.0-36.0 %] 32.6 % (06/17/22 9:09 AM) Sodium Level [135-150 mmol/L] 137 mmol/L (06/17/22 9:09 AM) Hct [41.0-51.0 %] 37.4 % *LOW* (06/17/22 9:09 AM) Calcium Level [8.4-10.4 mg/dL] 8.0 mg/dL *LOW* (06/17/22 9:09 AM) Albumin Level [3.5-5.2 g/dL] 3.5 g/dL (06/17/22 9:09 AM) Protein Total [5.9-8.4 g/dL] 5.4 g/dL *LOW* (06/17/22 9:09 AM) MCH [26.0-33.0 pg] 29.5 pg (06/17/22 9:09 AM) Bilirubin Total [0.2-1.2 mg/dL] 0.7 mg/d L (06/17/22 9:09 AM) Hgb [13.5-17.0 g/dL] 12.2 g/dL *LOW* (06/17/22 9:09 AM) Alk Phos [40-150 unit/L] 47 unit/L (06/17/22 9:09 AM) MPV 10 *NA* (06/17/22 9:09 AM) Band Man [0-10 %] 3 % (06/17/22 9:09 AM) Platelets [130-400 x10^3/mcL] 202 x10^3/ mcL (06/17/22 9:09 AM) CO2 [22-32 mmol/L] 25 mmol/L (06/17/22 9:09 AM) eGFR Non-AA [>=60 mL/min/1.73 m2] 49 mL/ min/1.73 m2 *LOW* (06/17/22 9:09 AM) eGFR AA [>=60 mL/min/1.73 m2] 60 mL/min/ 1.73 m2 (06/17/22 9:09 AM) Chloride Level [95-110 mmol/L] 102 mmol/ L (06/17/22 9:09 AM) RDW-CV [11.0-15.0 %] 14.6 % (06/17/22 9:09 AM) A/G Ratio [1.0-2.5 ratio] 1.8 ratio (06/17/22 9:09 AM) BUN/Creat Ratio [6.0-22.0 ratio] 10.0 ra viri (06/17/22 9:09 AM) Globulin [1.5-3.7 g/dL] 1.9 g/dL (06/17/22 9:09 AM) ANC [1.200-6.900 x10^3/mcL] 5.120 x10^3/ mcL (06/17/22 9:09 AM) Creatinine Level [0.66-1.25 mg/dL] 1.40 mg/dL *HI* (06/17/22 9:09 AM) Anion Gap [3.0-11.0 mmol/L] 10.0 mmol/L (06/17/22 9:09 AM) Baso Man [0-2 %] 4 % *HI* (06/17/22 9:09 AM) Social History Social History Type Response Smoking Status Never (less than 100 in lifetime) entered on: 06/16/21 Sex Patient Care team information Personnel Name: JARRETT MOHR MSN,ASH HANDLER- Address: Address: [address] [place], [place] [address]
--- OUTSIDE RECORDS SUMMARY | 2023-03-20 19:15 | XMS_ITS | Continuity of Care Document ---
Author Name Unknown Organization [facility] ter Address [address] [place] [address] Care Team Providers Care Electric Meter Repairer Apprentice Name Role Phone JARRETT MOHR Primary Care Physician [phone] Encounter [facility] [id number] Date(s): 05/18/22 - 05/18/22 [facility] [address] [place] [address] Discharge Disposition: Home or Self Care Attending Physician: ASIYA DONATO MD Admitting Physician: ASIYA DONATO MD Allergies, Adverse Reactions, [...] Instructions, # 100 EA, 5 Refill(s), [facility]acy[facility] Start Date: 07/01/21 Status: Ordered glipiZIDE 10 [...] activity, # 10 tab, 0 Refill(s), Pharmacy: [facility] Start Date: 07/01/21 Status: Ordered Tylenol 8 HR Arthritis Pain 650 mg oral tablet, extended release 1,300 mg = 2 tab, Oral, every 8 hr, PRN as needed for pain Start Date: 04/22/22 Status: Ordered vancomycin 1 g/200 mL-D5% intravenous solution 2 g =, IV, every 24 hr, will be recieving through the [facility] Outpatient infusion clinic, # 42 EA, 0 [...] Confirmed Active 1Records from Dr. Riley Diane, [facility] 2Records from Dr. Riley Diane, [facility] 3Records from Dr. Riley Diane, [facility] 4Records from Dr. Riley Diane, [facility] 5Records from Dr. Riley Diane, [facility] Procedures Procedure Date Related Diagnosis Body Site Status Right total knee arthroplasty. 04/21/22 Completed Left total knee arthroplasty. 12/02/21 Completed Screening colonoscopy (Repeat 2021) 1 12/01/16 Completed Appendectomy 2 Completed Cholecystectomy 3 Complet ed Removal of cataract 4 Com pleted 12 mm sessile polyp Records from Dr. Riley Diane, [facility] 2Records from Dr. Riley Diane, [facility] 3Records from Dr. Riley Diane, [facility] 4Records from Dr. Riley Diane, [facility] Social History Social History Type Response Smoking Status Never (less than 100 in lifetime) entered on: 06/16/21 Sex Patient Care team information Personnel Name: JARRETT MOHR MSN,REAL ESTATE SITE ANALYST- Address: Address: [address] [place], [place] [address]
--- OUTSIDE RECORDS SUMMARY | 2023-03-20 19:15 | XMS_ITS | Continuity of Care Document ---
Author Name Unknown Organization [facility] ter Address [address] [place] [address] Care Team Providers Care Automatic Nailing Machine Operator Name Role Phone JARRETT MOHR Primary Care Physician Encounter [facility]_[place] Date(s): 04/24/22 - 04/24/22 [facility] [address] [place] [address] Discharge Disposition: Home or Self Care Attending Physician: ASIYA DONATO MD Admitting Physician: ASIYA DONATO MD Referring Physician: JARRETT MOHR MSN,BARYTES GRINDER-BC Allergies, Adverse Reactions, Alerts No Known Medication [...] Instructions, # 100 EA, 5 Refill(s), Pharmacy: [facility] Start Date: 07/01/21 Status: Ordered glipiZIDE [...] Instructions, # 1 EA, 0 Refill(s), Pharmacy: [facility] Start Date: 09/11/21 Status: Ordered metFORMIN [...] Confirmed Active 1Records from Dr. Riley Diane, [facility] 2Records from Dr. Riley Diane, [facility] 3Records from Dr. Riley Diane, [facility] 4Records from Dr. Riley Diane, [facility] 5Records from Dr. Riley Diane, [facility] Procedures Procedure Date Related Diagnosis Body Site Status Left total knee arthroplasty. 12/02/21 Completed Screening colonoscopy (Repeat 2021) 1 12/01/16 Completed Appendectomy 2 Completed Cholecystectomy 3 Complet ed Removal of cataract 4 Com pleted 12 mm sessile polyp Records from Dr. Riley Diane, [facility] 2Records from Dr. Riley Diane, [facility] 3Records from Dr. Riley Diane, [facility] 4Records from Dr. Riley Diane, [facility] Social History Social History Type Response Smoking Status Never (less than 100 in lifetime) entered on: 06/16/21 Sex Patient Care team information Personnel Name: JARRETT MOHR MSN,[facility]- Address: Address: [address] [place], [place] [address]
--- OUTSIDE RECORDS SUMMARY | 2023-03-20 19:15 | XMS_ITS | Continuity of Care Document ---
Author Name Unknown Organization [facility] ter Address [address] [place] [address] Care Team Providers Care Digital Producer Name Role Phone JARRETT MOHR Primary Care Physician [phone] Encounter REGM_[place] Date(s): 04/28/22 - 04/28/22 [facility] [address] [place] [address] Discharge Disposition: Home or Self Care Attending Physician: ASIYA DONATO MD Admitting Physician: ASIYA DONATO MD Referring Physician: JARRETT MOHR MSN,RADIOLOGY SUPERVISOR-BC Allergies, Adverse Reactions, Alerts No Known Medication [...] Instructions, # 100 EA, 5 Refill(s), Pharmacy: [facility] Start Date: 07/01/21 Status: Ordered glipiZIDE [...] Instructions, # 1 EA, 0 Refill(s), Pharmacy: [facility] Start Date: 09/11/21 Status: Ordered metFORMIN [...] Confirmed Active 1Records from Dr. Riley Diane, [facility] 2Records from Dr. Riley Diane, [facility] 3Records from Dr. Riley Diane, [facility] 4Records from Dr. Riley Diane, [facility] 5Records from Dr. Riley Diane, [facility] Procedures Procedure Date Related Diagnosis Body Site Status Left total knee arthroplasty. 12/02/21 Completed Screening colonoscopy (Repeat 2021) 1 12/01/16 Completed Appendectomy 2 Completed Cholecystectomy 3 Complet ed Removal of cataract 4 Com pleted 12 mm sessile polyp Records from Dr. Riley Diane, [facility] 2Records from Dr. Riley Diane, [facility] 3Records from Dr. Riley Diane, [facility] 4Records from Dr. Riley Diane, [facility] Results Radiology Reports * Exam Date Time Procedure Performing Provider Status 04/28/22 9:39 AM XR Knee 3 Views Right IDANIA CHEUNG RT (R)(M)(CT); Auth (Verified) Notes: (XR Knee 3 Views Right) Reason For Exam: Rt total knee XR Knee 3 Views Right EXAM: DX KNEE 3 VIEWS RT CLINICIAN'S HISTORY: Rt total knee - HISTORY REPORTED TO TECHNOLOGIST: 1 week post op Rt. total knee. COMPARISON: 04/21/2022. TECHNIQUE: 3 views of the right knee. FINDINGS: Right total knee arthroplasty. No periprosthetic fracture or hardware complication. Small knee joint effusion. IMPRESSION: Intact right total knee arthroplasty. Electronically signed by: Gabino Hough M.D. - 04/28/2022 10:27 AM Final Signed by: GABINO HOUGH MD Signed (Electronic Signature): 04/28/2022 10:27 am Transcribed by: CR RML Social History Social History Type Response Smoking Status Never (less than 100 in lifetime) entered on: 06/16/21 Sex XR Knee - right 3 Views * Generated Domain User for [id number]: TRANSCRIBE, TRANSCRIBE Generated Domain User for [id number]: TRANSCRIGABINO GO MD: VERIFY, VERIFY GABINO HOUGH MD: VERIFY Event Display: Report EXAM: DX KNEE 3 VIEWS RT CLINICIAN'S HISTORY: Rt total knee - HISTORY REPORTED TO TECHNOLOGIST: 1 week post op Rt. total knee. COMPARISON: 04/21/2022. TECHNIQUE: 3 views of the right knee. FINDINGS: Right total knee arthroplasty. No periprosthetic fracture or hardware complication. Small knee joint effusion. IMPRESSION: Intact right total knee arthroplasty. Electronically signed by: Gabino Hough M.D. - 04/28/2022 10:27 AM Final Signed by: GABINO HOUGH MD Signed (Electronic Signature): 04/28/2022 10:27 am Transcribed by: CR Note * Generated Domain User for [id number]: TRANSCGABINO RENTERIA MD: VERIFY Event Display: Report Patient Care team information Personnel Name: JARRETT MOHR MSN,RADIOLOGY SUPERVISOR- Address: Address: [address] [place], [place] [address]
--- OUTSIDE RECORDS SUMMARY | 2023-03-20 19:15 | XMS_ITS | Continuity of Care Document ---
Author Name Unknown Organization [facility] ter Address [address] [place] [address] Care Team Providers Care Cable Reeler Name Role Phone JARRETT MOHR Primary Care Physician Encounter [facility] [id number] Date(s): 05/19/22 - 05/19/22 [facility] [address] [place] [address] Discharge Disposition: Home or Self Care Attending Physician: DON TRIPP Admitting Physician: DON TRIPP Referring Physician: JARRETT MOHR MSN,MANAGER PROFESSIONAL DEVELOPMENT-BC Allergies, Adverse Reactions, Alerts No Known Medication Allergies Assessment and Plan Future Appointments Appointment Date:05/20/2022 09:30:00 AM Scheduled Provider: Location:REGM [...] # 100 EA, 5 Refill(s), [facility] Start Date: 07/01/21 Status: Ordered glipiZIDE [...] activity, # 10 tab, 0 Refill(s), Pharmacy: [facility] Start Date: 07/01/21 Status: Ordered Tylenol 8 HR Arthritis Pain 650 mg oral tablet, extended release 1,300 mg = 2 tab, Oral, every 8 hr, PRN as needed for pain Start Date: 04/22/22 Status: Ordered vancomycin 1 g/200 mL-D5% intravenous solution 2 g =, IV, every 24 hr, [place] [facility] [place], # [place] EA, 0 [...] Riley Diane, [facility] 2Records from Dr. Riley Diane, [facility] 3Records from Dr. Riley Diane, [facility] 4Records from Dr. Riley Diane, [facility] 5Records from Dr. Riley Diane, [facility] Procedures Procedure Date Related Diagnosis Body Site Status Right total knee arthroplasty. 04/21/22 Completed Left total knee arthroplasty. 12/02/21 Completed Screening colonoscopy (Repeat 2021) 1 12/01/16 Completed Appendectomy 2 Completed Cholecystectomy 3 Complet ed Removal of cataract 4 Com pleted 12 mm sessile polyp Records from Dr. Riley Diane, [facility] 2Records from Dr. Riley Diane, [facility] 3Records from Dr. Riley Diane, [facility] 4Records from Dr. Riley Diane, [facility] Social History Social History Type Response Smoking Status Never (less than 100 in lifetime) entered on: 06/16/21 Sex Patient Care team information Personnel Name: JARRETT MOHR MSN,MANAGER PROFESSIONAL DEVELOPMENT- Address: Address: [address]
--- OUTSIDE RECORDS SUMMARY | 2023-03-20 19:16 | XMS_ITS | Patient Health Record ---
Author Name Unknown Organization [facility] Address [address] [place], [place] [id number] Care Team Providers Care Physician Relations Manager Name Role Phone MOHR JARRETT THACKER Primary Care Provider ASIYA Delarosa Unavailable [phone] DON TRIPP Unavailable [phone] ALLERGIES Allergen (clinical drug ingredient) Drug/Non Drug Allergy documented on EMR Reaction Allergy Type Onset Date Status vancomycin Vancomycin HCl swelling Drug Allergy A ctive RESULTS Component Value Reference Range Notes XR Knee 3 Views Right Reviewed date:06/04/2022 08:12:01 AM Interpretation: Performing Lab: Notes/Report: XR Knee 3 Views Right Reviewed date:04/28/2022 02:45:53 PM Interpretation: Performing Lab: Notes/Report: REASON FOR REFERRAL No Information MEDICATIONS Medication SIG (Take, Route, Frequency, Duration) Notes Start Date End Date Status Propranolol HCl ER 120 MG 1 capsule Oral ly Once a day Active Aspirin 325 MG 1 tablet Orally Once a day Not-Taking Allopurinol 300 MG 1 tablet Orally Once a day Not-Taking glipiZIDE 10 MG 1 tablet Orally Not-Taking CeleBREX 400 MG 1 capsule with food Orally Once a day Not-Taking Levaquin 750 MG 0.5 tablet Orally On ce a day IV Not-Taking Irbesartan 300 MG 1 tablet Orally Once a day Not-Taking Tylenol 325 MG 1 tablet as needed Orally every 4 hrs Not-Taking Omeprazole 20 MG 1 capsule 30 minutes before morning meal Orally every other day Not-Takin g metFORMIN HCl 500 MG 1 tablet with a rebecca l Orally Twice a day Active Lasix 20 MG 1 tablet Orally Once a day Active IMMUNIZATIONS Vaccine Route Administration Date Status Comme nts Shingrix Unknown 06/16/2021 Administered Moderna COVID-19 Vaccine Unknown 08/16/2020 Administere d Moderna COVID-19 Vaccine Unknown 09/13/2020 Administere d Moderna COVID-19 Vaccine Unknown 04/25/2021 Administere d Moderna COVID-19 Vaccine Unknown 10/24/2021 Administere d Moderna COVID 19 mRNA bivale nt boost 50mcg/0.5mL Unknown 03/11/2022 Administered Influenza, high dose seasonal Unknown 04/03/2021 Admini stered SOCIAL HISTORY Tobacco Use: Social History Observation Description Date Details (start date - stop date) Never Smoker NA - NA Sex Assigned At : Social History Observation Description Sex Assigned At Unknown Tobacco Use/Smoking Question Answer Notes Are you a nonsmoker Alcohol Screen (Audit-C) Question Answer Notes Did you have a drink containing alcohol in the p ast year? 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) Active confirmed 7796939937244 Problem Right shoulder pain, unspecified chronicity (M25.511) Active confirmed 38135465 Problem Left shoulder pain, unspecified chronicity (M25.512) Active confirmed 14619663 Problem Arthritis of left knee (M17.12) Active confirmed 1455948602709532 Problem Osteoarthritis of right knee, unspecified osteoarthritis type (M17.11) Active confirmed 038996220774486 Problem History of knee surgery (Z98.890) Active confirmed History of knee surgery (249650959) Problem Failed total right knee replacement, 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 649618559 VITAL SIGNS Temperature 97.4 degrees Fahrenheit 05/19/2022 Height 68 in 05/19/2022 Encounters Encounter Location Date Provider Diagnosis [facility] [address], [place] [id number] 03/20/2022 ASIYA DONATO Right shoulder pain, unspecified chronicity M25.511 [facility] [address], [place] [id number] 04/24/2022 ASIYA DONATO Status post total ri ght knee replacement Z96.651 [facility] [address] [facility] [place] [id number] 04/24/2022 ASIYA GORSCHE Status post total ri ght knee replacement Z96.651 [facility] [address] [facility], [place] [id number] 04/28/2022 DON TRIPP Status post total ri ght knee replacement Z96.651 [facility] [address] [facility], [place] [id number] 05/01/2022 ASIYA GORSCHE Status post total ri ght knee replacement Z96.651 [facility] [address] [facility], [place] [id number] 05/05/2022 ASIYA GORSCHE Status post total ri ght knee replacement Z96.651 [facility] [address] [facility] [id number] 05/19/2022 DON TRIPP Failed total right k nee replacement, subsequent encounter T84.012D [facility] [address] [facility], [place] [id number] 05/26/2022 DON TRIPP Failed total right k nee replacement, subsequent encounter T84.012D [facility] [address] [facility], [place] [id number] 06/02/2022 DON TRIPP Status post total ri ght knee replacement Z96.651 [facility] [address] [facility], [place] [id number] 09/11/2022 ASIYA TANMAY [facility] [address] [facility], [place] [id number] 10/23/2022 DON TRIPP Left shoulder pain, unspecified chronicity M25.512 [facility] [address] [place] [id number] 03/25/2022 ASIYA DONATO Left shoulder pain, unspecified chronicity M25.512 [facility] [address] [facility], [place] [id number] 05/08/2022 ASIYA GORSCHE Status post total ri ght knee replacement Z96.651 [facility] [address] [facility], [place] [id number] 06/09/2022 DON TRIPP Status post total ri ght knee replacement Z96.651 [facility] [address] [facility], [place] [id number] 06/26/2022 ASIYA DONATO Status post total ri ght knee replacement Z96.651 [facility] [address] [facility] [id number] 07/10/2022 ASIYA DONATO Status post total ri ght knee replacement Z96.651 [facility] [address] [facility], [place] [id number] 10/20/2022 DON TRIPP Right shoulder pain, unspecified chronicity M25.511 [facility] [address], [place] [id number] 04/21/2022 ASIYA DONATO Osteoarthritis of ri ght knee, unspecified osteoarthritis type M17.11 [facility] [address] [facility], [place] [id number] 05/12/2022 ASIYA DONATO Failed total right k nee replacement, initial encounter T84.012A [facility] [address] [place], [place] [id number] 04/22/2022 ASIYA DONATO [facility] [address] [place], [place] [id number] 04/24/2022 ASIYA DONATO [facility] [address] [place], [place] [id number] 04/30/2022 DON TRIPP [facility] [address] [place], [place] [id number] 05/06/2022 ASIYA DONATO [facility] [address] [place], [place] [id number] 05/13/2022 ASIYA DONATO [facility] [address] [place], [place] [id number] 06/17/2022 ASIYA DONATO [facility] [address] [place], [place] [id number] 06/23/2022 ASIYA DONATO ASSESSMENTS Encounter Date Diagnosis Assessment Notes Treatment Notes Treatment Clinical Notes 03/20/2022 Right shoulder pain, unspecified chronicity (ICD-10 - M25.511) 03/25/2022 Left shoulder pain, unspecified chronicity (ICD-10 - M25.512) 04/21/2022 Osteoarthritis of right knee, unspecified osteoarthritis type (ICD-10 - M17.11) 04/24/2022 Status post total right knee replacement (ICD-10 - Z96.651) 04/24/2022 Status post total right knee replacement (ICD-10 - Z96.651) 04/28/2022 Status post total right knee replacement (ICD-10 - Z96.651) Xrays obtained and reviewed show the presence of a right total knee arthroplasty with no evidence of loosening or hardware complication. 76 year old male 1 week out from a right total knee arthroplasty. Patient continues to have drainage from incisional site. Steri strips were re-applied. A new dressing and compressive dressing were applied. Will start patient on an antibiotic prophylactically. Patient to follow up on Wednesday for wound check. In the meantime, he may work with physical therapy on quad strengthening but would limit knee flexion. 05/01/2022 Status post total right knee replacement (ICD-10 - Z96.651) 05/05/2022 Status post total right knee replacement (ICD-10 - Z96.651) 05/08/2022 Status post total right knee replacement (ICD-10 - Z96.651) 05/12/2022 Failed total right knee replacement, initial encounter (ICD-10 - T84.012A) 05/19/2022 Failed total right knee replacement, subsequent encounter (ICD-10 - T84.012D) 05/26/2022 Failed total right knee replacement, subsequent encounter (ICD-10 - T84.012D) 76 year old male 2 weeks out from a revision right total knee arthroplasty, irrigation and debridement with exchange of polyethylene. Wound is healing nicely with no evidence of erythema, drainage, or discharge. [place] were removed at today's visit. He may get incision wet in the shower. Will have patient follow up in 2 weeks for clinical check. 06/02/2022 Status post total right knee replacement (ICD-10 - Z96.651) 06/09/2022 Status post total right knee replacement (ICD-10 - Z96.651) 76 year old male 4 weeks out from a revision right total knee arthroplasty, irrigation and debridement with exchange of polyethylene. Overall, patient is doing well. Will have patient return in [address] Donato. Will consider transitioning him to oral antibiotics at that time. 06/26/2022 Status post total right knee replacement (ICD-10 - Z96.651) 07/10/2022 Status post total right knee replacement (ICD-10 - Z96.651) 10/20/2022 Right shoulder pain, unspecified chronicity (ICD-10 - M25.511) Verbal consent obtained. Right shoulder sterilely prepped and injected with Marcaine and Depo-Medrol. Patient tolerated well. 10/23/2022 Left shoulder pain, unspecified chronicity (ICD-10 - M25.512) Verbal consent obtained. Left shoulder sterilely prepped and injected with Marcaine and Depo-Medrol. Patient tolerated well. 77 year old male with left shoulder pain. A combination of Depo-Medrol and Marcaine was injected into left shoulder intra-articular space under sterile prep. Patient tolerated well. May repeat in 3 months, if needed. Patient to otherwise follow up as needed. 05/01/2022 Other Wound looks completely benign still some drainage from the center of the wound. New dressing was applied we will see him back on Wednesday placed on some Bactrim. 05/05/2022 Other Patient is 2 we eks out from right total knee arthroplasty, finish out the Bactrim can restart physical therapy follow-up with me in a month for new x-ray of his knee. 05/08/2022 Other Patient is over 2 weeks out from right total knee arthroplasty with some persistent drainage. We are going to plan to add him on for Wednesday for a washout in the OR. He will be admitted postoperatively for IV antibiotics. Risks and benefits were reviewed including the risk of bleeding, infection, damage to surrounding structures, need for additional procedures. Despite these risks he agreed to proceed. 05/19/2022 Other 76-year-old mal e 1 week out from a revision right total knee arthroplasty, irrigation and debridement with exchange of polyethylene. Overall, patient is doing well. Wound is healing nicely. A new dressing was applied at today's visit. Continue with IV antibiotics. Patient will return in 1 week for wound check. 06/26/2022 Other Patient is abou t 6 weeks out from revision right total knee arthroplasty with irrigation debridement and exchange of the polyethylene. He has completed a course of antibiotics for 6 weeks at this time we can discontinue antibiotics since he is having a lot of problems with this and we will see how he does. He is completed physical therapy. We will plan to see him back in a few weeks. 07/10/2022 Other Patient had a r ight total knee infection and I&D and poly exchange in April. He is almost 3 months out we will continue to monitor his symptoms no antibiotics needed for the knee I will see him back in 2 months for repeat clinical check 10/20/2022 Other 77-year-old mal e with right shoulder pain. Combination of Depo-Medrol and Marcaine was injected into right shoulder intra-articular space under sterile prep. Patient tolerated well. He is going to return to the office on Wednesday for left shoulder injection. PLAN OF TREATMENT No Information Insurance Providers Payer Name Payer Address Payer Phone Subscriber Number Group Number Insured Name Patient Relationship to Insured Coverage Start Date Coverage End Date [employer] MED[employer] PART B [address] [place] [address] [id number] SILVIO MOYER Self - patient is the insured 2 [facility] [address] [place], [place] [id number] SILVIO MOYER Self - patient is the insured 2 MEDICATIONS ADMINISTERED Medication Instructions Date of Administration Dosage Notes GBS Large Joint 80 mg 03/25/2022 1 mL GBS Large Joint 80 mg 10/20/2022 1 mL GBS Large Joint 80 mg 10/23/2022 80 mg GBS Large Joint Kenalog 80mg multi dose vial 08/22/2021 80 mg GBS Large Joint Kenalog 80mg multi dose vial 08/29/2021 80 mg GBS Large Joint Kenalog 80mg multi dose vial 10/31/2021 80 mg GBS Large Joint Kenalog 80mg multi dose vial 11/04/2021 80 mg GBS Large Joint Kenalog 80mg multi dose vial 01/16/2022 80 mg GBS Marcaine 1cc .5 08/22/2021 1 mL GBS Marcaine 1cc .5 08/29/2021 1 mL GBS Marcaine 1cc .5 10/31/2021 1 mL GBS Marcaine 1cc .5 11/04/2021 1 mL GBS Marcaine 1cc .5 01/16/2022 1 mL GBS Marcaine 1cc .5 03/25/2022 1 mL GBS Marcaine 1cc .5 10/20/2022 1 mL GBS Marcaine 1cc .5 10/23/2022 1 mL MEDICAL (GENERAL) HISTORY Medical History History ICD Code Diabetes E11.9 GERD (gastroesophageal reflux disease) K 21.9 Hypertension I10 Hyperlipemia E78.5 Gout M10.9 Kidney disease N28.9 Heart disease I51.9 Surgical History Surgery Date(Month/Year) Revision R TKA, I&D with exchange of bárbara yethylene 05/12/2022 R TKA 04/21/2022 LEFT TOTAL KNEE REPLACEMENT 12/02/21 COLONOSCOPY CATARACT SURGERY; COMPLEX Cholecystecomy APPENDECTOMY
--- OUTSIDE RECORDS SUMMARY | 2023-03-20 19:16 | XMS_ITS | Continuity of Care Document ---
Author Name Unknown Organization [facility] ter Address [address] [place] [address] Care Team Providers Care Treasury Manager Name Role Phone JARRETT MOHR Primary Care Physician Encounter [facility] Date(s): 04/21/22 - 04/22/22 [facility] [address] [place] [address] Encounter Diagnosis Osteoarthritis of right knee joint(Discharge Diagnosis) - 04/22/22 History of total right knee replacement(Discharge Diagnosis) - 04/22/22 Diabetes mellitus type II(Discharge Diagnosis) - 04/22/22 HTN - Hypertension(Discharge Diagnosis) - 04/22/22 Hyperlipidemia(Discharge Diagnosis) - 04/22/22 Discharge Disposition: Home or Self Care Attending Physician: ASIYA DONATO MD Admitting Physician: ASIYA DONATO MD Referring Physician: JARRETT MOHR MSN,ASSEMBLY AND PACKING SUPERVISOR-BC Allergies, Adverse Reactions, Alerts No Known Medication Allergies Assessment and Plan Future Appointments Functional Status 04/22/22 Lunch Percent 100 04/22/22 Home Equipment Walker 04/22/22 Activity Status ADL HOB elevated Assistive Device Walker 04/22/22 Living Environment Home Environment No qualifying data available Lives In Single level home Lives With Spouse Living Situation Home independently Patient's Responsibilities Rehab 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, 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, Leisure/Play/Hobbies, Manage Medications, Personal ADL, Retired, Shopping, Social participation Home Equipment Rehab Cane, Rolling walker Anticipated Need for Home Modification N o Number of Stairs Inside 0 Number of Stairs Outside 0 Prior ADL Status Independent Prior Mobility Status Independent Prior Instrumental ADL Level Independent Prior Cognitive-Communication Skills Ind ependent 04/22/22 Detail Areas of Responsibilities he lps as needed Location Main Bathroom 1st floor 1 04/22/22 Breakfast Percent 100 04/22/22 Personal Care Provided Other: washed larkin ds and face 04/21/22 Ambulation Patient Effort Good Ambulation Minutes 30 04/21/22 ADLs Independent 04/21/22 Dinner Percent 100 04/21/22 Anti-Embolism Device Activity: Applied Anti-Embolism Site Condition: No complic ations 04/21/22 Antiembolism Device Graduated compressio n stockings, knee high, left Family Member Travel History No recent t ravel Recent Travel History No recent travel Other exposure to Infectious Disease Non e 1Result Comment: walk in shower, high rise toilet Immunizations Given and Recorded Vaccine Date Status [...] Meal, # 28 cap, 0 Refill(s), Pharmacy: [facility], 172.08, cm, 04/21/22 16:38:00 CDT, Height/Length Dosing, [...] BID, # 8 cap, 0 Refill(s), Pharmacy: [facility], 172.08, cm, 04/21/22 16:38:00 CDT, Height/Length [...] activity, # 10 tab, 0 Refill(s), Pharmacy: [facility] Start Date: 07/01/21 Status: Ordered Tylenol 8 HR Arthritis Pain 650 mg oral tablet, extended release 1,300 mg = 2 tab, Oral, every 8 hr, PRN as needed for pain Start Date: 04/22/22 Status: Ordered Mental Status 04/22/22 Eye Opening Response Patrica Spontaneous ly Best Verbal Response [place] Oriented Best Motor Response [place] Obeys comman ds Patrica Coma Score 15 [...] [facility] 2Records from Dr. Riley Diane, [facility] [...] [facility] 2Records from Dr. Riley Diane, [facility] 3Records from Dr. Riley Diane, [facility] 4Records from Dr. Riley Diane, [facility] Results Laboratory List Name Date Glucose POCT 04/22/22 Glucose POCT 04/22/22 Hemoglobin 04/22/22 Glucose POCT 04/21/22 Most recent to oldest [Reference Range]: 1 2 3 Glucose POC [70-100 mg/dL] 208 mg/dL *HI* (04/22/22 11:44 AM) 211 mg/dL *HI* (04/22/22 7:15 AM) 293 mg/dL *HI* (04/21/22 8:27 PM) Hgb [13.5-17.0 g/dL] 12.2 g/dL *LOW* (04/22/22 5:11 AM) Radiology Reports * Exam Date Time Procedure Performing Provider Status 04/21/22 4:23 PM XR Knee 1 or 2 Views Right IDANIA CHEUNG RT(R)(M)(CT); Auth (Verified) Notes: (XR Knee 1 or 2 Views Right) Reason For Exam: Total Joint XR Knee 1 or 2 Views Right EXAM: DX KNEE 1 OR 2 VIEWS RT CLINICIAN'S HISTORY: Total Joint - HISTORY REPORTED TO TECHNOLOGIST: Post op Rt. total knee. COMPARISON: None. Findings: Well seated uncomplicated right total knee arthroplasty with immediate postoperative changes. IMPRESSION: 1. Well seated uncomplicated right TKA. Electronically signed by: Huy Irvin MD - 04/21/2022 4:24 PM Final Signed by: HUY IRVIN MD Signed (Electronic Signature): 04/21/2022 4:24 pm Transcribed by: GDU URL Vital Signs Most recent to oldest [Reference Range]: 1 2 3 Temperature Oral [35.8-37.3 Deg C] 36.6 Deg C (04/22/22 11:46 AM) 36.6 Deg C (04/22/22 7:01 AM) 36.1 Deg C (04/22/22 4:01 AM) Temperature Oral (DegF) [96.4-99.1 Deg F] 97.88 Deg F (04/22/22 11:46 AM) 97.88 Deg F (04/22/22 7:01 AM) 96.98 Deg F (04/22/22 4:01 AM) Temperature Temporal Artery [36-38 Deg C] 36.3 Deg C (04/21/22 4:46 PM) 36.1 Deg C (04/21/22 4:06 PM) 36.6 Deg C (04/21/22 12:04 PM) Temperature Temporal Artery (DegF) [97.3-100 Deg F] 97.34 Deg F (04/21/22 4:46 PM) 96.98 Deg F *LOW* (04/21/22 4:06 PM) Peripheral Pulse Rate [60-100 bpm] 64 bpm (04/22/22 7:01 AM) 55 bpm *LOW* (04/22/22 4:01 AM) 69 bpm (04/21/22 7:19 PM) Heart Rate Monitored [60-100 bpm] 64 bpm (04/22/22 7:01 AM) 55 bpm *LOW* (04/22/22 4:01 AM) 73 bpm (04/21/22 7:19 PM) Respiratory Rate [12-24 br/min] 18 br/min (04/22/22 7:01 AM) 17 br/min (04/21/22 4:46 PM) 16 br/min (04/21/22 4:30 PM) Blood Pressure [90-140/60-90 mmHg] 121/71mmHg (04/22/22 11:46 AM) 133/72mmHg (04/22/22 7:01 AM) 138/81mmHg (04/22/22 4:02 AM) Mean Arterial Pressure, Cuff [65-140 mmHg] 88 mmHg (04/22/22 11:46 AM) 92 mmHg (04/22/22 7:01 AM) 100 mmHg (04/22/22 4:02 AM) Mean Arterial Pressure Cuff 87 mmHg (04/22/22 11:46 AM) 92 mmHg (04/22/22 7:01 AM) 100 mmHg (04/22/22 4:02 AM) Blood Pressure Location Left arm (04/22/22 11:46 AM) Left arm (04/22/22 7:01 AM) Left arm (04/22/22 4:02 AM) Blood Pressure Method Automatic (04/22/22 11:46 AM) Automatic (04/22/22 7:01 AM) Automatic (04/22/22 4:02 AM) Weight 106.700 kg (04/21/22 12:04 PM) Weight Dosing 111.1 kg (04/21/22 4:38 PM) 106.700 kg (04/21/22 12:04 PM) Height 172.080 cm (04/21/22 12:04 PM) Height/Length Dosing 172.08 cm (04/21/22 4:38 PM) 172.080 cm (04/21/22 12:04 PM) BSA Estimated 0 m2 (04/21/22 4:38 PM) Body Mass Index 36.030 kg/m2 (04/21/22 12:04 PM) Social History Social History Type Response Smoking Status Never (less than 100 in lifetime) entered on: 06/16/21 Sex Hospital Discharge Instructions Patient Education 04/22/2022 10:19:07 REG Total Knee Replacement Discharge Instructions [facility] (Custom) (Custom) (Custom)(CUSTOM) Total Knee Replacement Discharge Instructions [facility] Pain Control ??? You will be given a prescription for pain medication at discharge. ??? You are allowed to take the medication as prescribed. ??? You may want to take the pain medication as prescribed around the clock for the first few days after being home. With time you will be able to increase the length of time between the pain medications and then decrease the dosage. ??? Notify your surgeon if your pain is not controlled by the medication you were given. Incision Care ??? DO NOT remove dressing ??? DO NOT touch your incision line with your hands. ??? May shower as long as dressing stays on and intact ??? Pat dressing dry after showering ??? If dressing seal is compromised or comes off, incision CANNOT get wet until kane are removed ??? NO sitting down in the bathtub. ??? You do not need to clean your incision with anything. ??? DO NOT put any creams, scar creams, lotions, powder, etc. on your incision, unless otherwise instructed. ??? Notify your surgeon if you have any concerns about your incision. Signs and symptoms of infection could include: Increased redness to the incision Increased pain Abnormal drainage or increased drainage Persistent fever greater than 101 for two days Constipation Prevention ??? At the time of discharge you are instructed to take a stool softener. ??? You may be on iron and pain medication and both can cause constipation. Sleep Patterns ??? Sleep patterns can be altered after having surgery. Most often it is related to pain medication, anesthesia, and napping??during the day. Nutrition ??? It is common for patients to have decreased appetite after surgery. ??? It is important to get plenty of calories and protein for wound healing. ??? It may be helpful to eat 4 to 6 smaller meals throughout the day instead of the normal 3 meals per day. Supplement drinks such as Boost and Ensure may help if you are not able to eat adequately. ??? Notify your surgeon if you have any concerns about your nutritional status, nausea and vomiting, or diarrhea in the first ten days following surgery. Activity and Exercises ??? It is important to stay active after surgery. ??? It will be important to balance your rest and activity periods when you are at home. ??? You should continue your exercises as instructed by therapy. ??? Use your walker or crutches as your therapist told you to use them, wearing shoes that fit wellfor all activity. This gives you good support and minimizes chances for falling. ??? You should not sit for more than one hour at a time and avoid crossing your legs. ??? A good time to elevate your leg is after your 3 sessions of exercise each day and before bedtime. Remember to ice your knee while you elevate. ??? REMEMBER ??? it will be important for you to ice and elevate your knee for 30 minutes 3 to 4 times a day for a total of at least 2 hours a day. To do this you need to lay flat on your back and have your lower leg/heel up on 4 to 5 pillows. NOTHING under the knee and your knee should be above the level of your heart. ??? NO driving, participating in sports, or returning to work until you are cleared by your surgeon. Blood Clotting Prevention ??? Your surgeon will have prescribed you a blood thinner at discharge (aspirin, Coumadin, Lovenox,or Xarelto). ??? You need to take this as instructed to prevent blood clots. ??? You will also have GIGI hose to prevent blood clots. Remove them at night and reapply in the morning. Wear GIGI hose until your follow-up appointment. Apply GIGI Hose: Insert hand into stocking as far as the heel pocket. Grasp center of heel pocket and turn stocking inside out to heel area. Carefully position stocking over foot and heel, making sure heel is centered in the heel pocket. Pull stocking up and lift around ankle and calf, working up to final position. (Top of stocking is positioned 1 to 2 inches below bottom of knee cap.) Make sure heel and toe are positioned correctly.Smooth out any excess material between top of stocking and ankle. Pull toe section forward to smooth ankle and instep areas and allow for patient toe comfort. DO NOT under any circumstances, turn down top of stockings. DO NOT cover any portion of the knee. Launder using a mild soap either by hand or on a gentle cycle in the washing machine. They should be air dried. ??? Notify your surgeon if you have any of the following potential signs and symptoms of blood clots: Leg swelling, calf tenderness, increased pain, red veins, or veins that are warm to the touch Chest pain, shortness of breath, difficulty breathing, or any respiratory problems such as unusual sputum Medications ??? Only take the medications that you have instructed to at the time of discharge. ??? Notify your doctors before you start or stop any medication. Follow-Up Appointments Dr. Donato: ??? Keep your follow-up appointments as scheduled. ??? If you need to change your appointment, please call [facility] at or [phone]. Contact Information [address]. Donato: ??? After returning home you may have additional questions during the first week, so please call [facility] at or [phone]. This information is not intended to replace advice given to you by your healthcare provider. Make sure you discuss any questions you have with your healthcare provider. XR Knee - right 1 or 2 Views * Generated Domain User for [id number]: OANH HUGO Generated Domain User for [id number]: HUY ASENCIO MD: VERIFY, VERIFY HUY IRVIN MD: VERIFY Event Display: Report EXAM: DX KNEE 1 OR 2 VIEWS RT CLINICIAN'S HISTORY: Total Joint - HISTORY REPORTED TO TECHNOLOGIST: Post op Rt. total knee. COMPARISON: None. Findings: Well seated uncomplicated right total knee arthroplasty with immediate postoperative changes. IMPRESSION: 1. Well seated uncomplicated right TKA. Electronically signed by: Huy Irvin MD - 04/21/2022 4:24 PM Final Signed by: HUY IRVIN MD Signed (Electronic Signature): 04/21/2022 4:24 pm Transcribed by: Areli Note * Generated Domain User for [id number]: HUY ASENCIO MD: VERIFY Event Display: Report Patient Care team information Personnel Name: JARRETT MOHR MSN,ASSEMBLY AND PACKING SUPERVISOR- Address: Address: [address] [place], [place] [address]
--- OUTSIDE RECORDS SUMMARY | 2023-03-20 19:16 | XMS_ITS | Continuity of Care Document ---
Author Name Unknown Organization [facility] ter Address [address] [place] [address] Care Team Providers Care Crm Architect Name Role Phone JARRETT MOHR Primary Care Physician Encounter [facility] [id number] Date(s): 06/16/22 - 06/16/22 [facility] [address] [place] [address] Discharge Disposition: Home or Self Care Attending Physician: SARAI BOWEN MSN,AGACNP-BC,PUBLICATIONS MANAGER-BC Admitting Physician: SARAI BOWEN MSN,AGACNP-BC,PUBLICATIONS MANAGER-BC Referring Physician: SARAI BOWEN MSN,AGACNP-BC,PUBLICATIONS MANAGER-BC Allergies, Adverse Reactions, Alerts No Known Medication Allergies Assessment and Plan Future Appointments Appointment Date:06/17/2022 08:30:00 AM Scheduled Provider: Location:[facility] Appointment Type:IV Med Therapy 90 ([facility]) Appointment Date:06/18/2022 08:30:00 AM Scheduled Provider: Location:[facility] Appointment Type:IV Med Therapy 90 ([facility]) Appointment Date:06/19/2022 08:30:00 AM Scheduled Provider: Location:[facility] Appointment Type:IV Med Therapy 90 ([facility]) Appointment Date:06/20/2022 08:30:00 AM Scheduled Provider: Location:[facility] Appointment Type:IV Med Therapy 90 ([facility]) Appointment Date:06/21/2022 08:30:00 AM Scheduled Provider: Location:[facility] Appointment Type:IV Med Therapy 90 ([facility]) Appointment Date:06/22/2022 09:00:00 AM Scheduled Provider: Location:[facility] Appointment Type:IV Med Therapy 90 (REGM) Appointment Date:06/23/2022 08:30:00 AM Scheduled Provider: Location:[facility] Appointment Type:IV Med Therapy 90 (REGM) Appointment Date:06/24/2022 09:15:00 AM Scheduled Provider: Location:[facility] Appointment Type:IV Med Therapy 90 (REGM) Appointment Date:06/25/2022 08:30:00 AM Scheduled Provider: Location:[facility] PROC Appointment Type:IV Med Therapy 90 (REG[facility]) Future Scheduled Tests Laboratory* Vancomycin Lvl Trough 06/18/22 * Creatinine 06/18/22 Immunizations Given and Recorded Vaccine Date Status [...] Instructions, # 100 EA, 5 Refill(s), Pharmacy: [facility] Start Date: 07/01/21 Status: Ordered glipiZIDE 10 mg oral tablet 2 tab, Oral, Daily, # 180 tab, 1 Refill(s), Pharmacy: [facility], 172.08, cm, 05/15/22 18:25:00 SPLIT LEATHER DEPARTMENT SUPERVISOR, Height/Length Dosing, 106.4, kg, 05/15/22 18:25:00 SPLIT LEATHER DEPARTMENT SUPERVISOR, Weight Dosing Start Date: 05/28/22 Status: Ordered irbesartan 300 mg oral tablet 1 tab, Oral, Daily, # 90 tab, 1 Refill(s), Pharmacy: [facility], 172, [...] 24 hr, will be recieving through the [facility], # 42 EA, 0 [...] Confirmed Active 1Records from Dr. Riley Diane, [facility] 2Records from Dr. Riley Diane, [facility] 3Records from Dr. Riley Diane, [facility] 4Records from Dr. Riley Diane, [facility] 5Records from Dr. Riley Diane, [facility] Procedures Procedure Date Related Diagnosis Body [...] sessile polyp Records from Dr. Riley Diane, [facility] 3Records from Dr. Riley Diane, [facility] 4Records from Dr. Riley Diane, [facility] 5Records from Dr. iRley Diane, [facility] Results Laboratory List Name Date Creatinine 06/16/22 Vancomycin Lvl Trough 12/20/22 Most recent to oldest [Reference Range]: 1 Vanco Tr [10.0-20.0 mcg/mL] 19.4 mcg/mL (06/16/22 8:47 AM) eGFR Non-AA [>=60 mL/min/1.73 m2] 54 mL/ min/1.73 m2 *LOW* (06/16/22 8:47 AM) eGFR AA [>=60 mL/min/1.73 m2] 65 mL/min/ 1.73 m2 (06/16/22 8:47 AM) Creatinine Level [0.66-1.25 mg/dL] 1.30 mg/dL *HI* (06/16/22 8:47 AM) Social History Social History Type Response Smoking Status Never (less than 100 in lifetime) entered on: 06/16/21 Sex Patient Care team information Personnel Name: JARRETT MOHR MSN,PUBLICATIONS MANAGER- Address: Address: [address] [place], [place] [address]
--- OUTSIDE RECORDS SUMMARY | 2023-03-20 19:16 | XMS_ITS | Continuity of Care Document ---
Author Name Unknown Organization [facility] ter Address [address] [place] [id number] Care Team Providers Care Pega Developer Name Role Phone MOHRJARRETT CLEMENS Catherine Primary Care Physician [phone] Encounter REGM_[place] Date(s): 06/20/22 - 06/20/22 [facility] [address] [place] [address] Encounter Diagnosis Allergic reaction(Discharge Diagnosis) - 06/20/22 Acute kidney injury(Discharge Diagnosis) - 06/20/22 Discharge Disposition: Home or Self Care Attending Physician: IKE SAEZ MSN,HANDSTITCHING MACHINE COLLAR FELLER-BC Admitting Physician: IKE SAEZ MSN,HANDSTITCHING MACHINE COLLAR FELLER-BC Allergies, Adverse Reactions, Alerts Substance Reaction Severity Status vancomycin Facial swelling Orbital swelling Rash Moderate Active Assessment and Plan Future Scheduled Tests Laboratory* Basic Metabolic Panel 06/22/22 Functional Status 06/20/22 Other exposure to Infectious Disease Non e [...] Pharmacy: [facility], 172.08, cm, 05/15/22 18:25:00 [employer]BLE INSTALLER SUPERVISOR, Height/Length Dosing, 106.4, kg, 05/15/22 18:25:00 MARBLE INSTALLER SUPERVISOR, Weight Dosing Start Date: 06/17/22 Stop Date: 07/17/22 Status: Ordered aspirin 325 mg oral tablet 325 mg = 1 tab, Oral, Daily, 0 Refill(s) Start Date: 04/22/22 Status: Ordered Contour Next Test Strips Contour Next Test Strips, check blood sugar BID, Supply, See Instructions, # 100 EA, 5 Refill(s), Pharmacy: [facility] Start Date: 07/01/21 Status: Ordered glipiZIDE 10 mg oral tablet 2 tab, Oral, Daily, # 180 tab, 1 Refill(s), Pharmacy: [facility], 172.08, cm, 05/15/22 18:25:00 MARBLE INSTALLER SUPERVISOR, Height/Length Dosing, 106.4, kg, 05/15/22 18:25:00 MARBLE INSTALLER SUPERVISOR, Weight Dosing Start Date: 05/28/22 Status: [...] Instructions, # 1 EA, 0 Refill(s), Pharmacy: [facility] Start Date: 09/11/21 Status: Ordered metFORMIN 1000 [...] activity, # 10 tab, 0 Refill(s), Pharmacy: [facility] Start Date: 07/01/21 Status: Ordered Tylenol 8 HR Arthritis Pain 650 mg oral tablet, extended release 1,300 mg = 2 tab, Oral, every 8 hr, PRN as needed for pain Start Date: 04/22/22 Status: Ordered vancomycin 1 g/200 mL-D5% intravenous solution 2 g =, IV, every 24 hr, will be recieving through the [facility] Outpatient infusion clinic, # 42 EA, 0 Refill(s), other reason (Rx) Start Date: 05/15/22 Stop Date: 06/26/22 Status: Ordered Mental Status 06/20/22 Eye Opening Response [place] Spontaneous ly Best Verbal Response [place] Oriented Best Motor Response Patrica Obeys comman ds [place] Coma Score 15 Problem List Condition Confirmation [...] [facility] 4Records from Dr. Riley Diaen, [facility] 5Records from Dr. Riley [...] from Dr. Riley Diane, [facility] Results Laboratory List Name Date Automated Diff 06/20/22 C-Reactive Protein 06/20/22 CBC w/ Diff 06/20/22 Comprehensive Metabolic Panel (CMP) 05/29 10/17 Most recent to oldest [Reference Range]: 1 WBC [4.0-10.5 x10^3/mcL] 10.5 x10^3/mcL (06/20/22 9:45 AM) RBC [4.40-5.80 x10^6/mcL] 4.51 x10^6/mcL (06/20/22 9:45 AM) Neutro Auto [40.0-75.0 %] 62.3 % (06/20/22 9:45 AM) Lymph Auto [19.0-45.0 %] 12.4 % *LOW* (06/20/22 9:45 AM) [place] Auto [1.0-13.0 %] 11.2 % (06/20/22 9:45 AM) Basophil Auto [0.0-2.0 %] 0.8 % (06/20/22 9:45 AM) BUN [6-20 mg/dL] 29 mg/dL *HI* (06/20/22 9:45 AM) Glucose Level [70-100 mg/dL] 185 mg/dL *HI* (06/20/22 9:45 AM) Potassium Level [3.5-5.5 mmol/L] 4.3 mmo l/L (06/20/22 9:45 AM) Baso Absolute [0.00-0.20 x10^3/mcL] 0.08 x10^3/mcL (06/20/22 9:45 AM) MCV [78-100 fL] 90 fL (06/20/22 9:45 AM) CRP [0.0-5.0 mg/L] 27.9 mg/L *HI* (06/20/22 9:45 AM) AST [0-41 unit/L] 39 unit/L (06/20/22 9:45 AM) ALT [6-45 unit/L] 58 unit/L *HI* (06/20/22 9:45 AM) MCHC [31.0-36.0 %] 32.7 % (06/20/22 9:45 AM) Sodium Level [135-150 mmol/L] 135 mmol/L (06/20/22 9:45 AM) Lymph Absolute [1.09-3.58 x10^3/mcL] 1.3 0 x10^3/mcL (06/20/22 9:45 AM) Hct [41.0-51.0 %] 40.7 % *LOW* (06/20/22 9:45 AM) Calcium Level [8.4-10.4 mg/dL] 8.4 mg/dL (06/20/22 9:45 AM) [place] Absolute [0.20-9.50 x10^3/mcL] 1.18 x10^3/mcL (06/20/22 9:45 AM) Albumin Level [3.5-5.2 g/dL] 3.4 g/dL *LOW* (06/20/22 9:45 AM) Protein Total [5.9-8.4 g/dL] 5.6 g/dL *LOW* (06/20/22 9:45 AM) MCH [26.0-33.0 pg] 29.5 pg (06/20/22 9:45 AM) Neutro Absolute [1.54-7.22 x10^3/mcL] 6. 56 x10^3/mcL (06/20/22 9:45 AM) Bilirubin Total [0.2-1.2 mg/dL] 0.6 mg/d L (06/20/22 9:45 AM) Hgb [13.5-17.0 g/dL] 13.3 g/dL *LOW* (06/20/22 9:45 AM) Alk Phos [40-150 unit/L] 36 unit/L *LOW* (06/20/22 9:45 AM) MPV 10 *NA* (06/20/22 9:45 AM) Platelets [130-400 x10^3/mcL] 235 x10^3/ mcL (06/20/22 9:45 AM) CO2 [22-32 mmol/L] 25 mmol/L (06/20/22 9:45 AM) Eos Absolute [0.15-0.50 x10^3/mcL] 1.35 x10^3/mcL *HI* (06/20/22 9:45 AM) eGFR Non-AA [>=60 mL/min/1.73 m2] 33 mL/ min/1.73 m2 *LOW* (06/20/22 9:45 AM) eGFR AA [>=60 mL/min/1.73 m2] 40 mL/min/ 1.73 m2 *LOW* (06/20/22 9:45 AM) Chloride Level [95-110 mmol/L] 99 mmol/L (06/20/22 9:45 AM) RDW-CV [11.0-15.0 %] 14.5 % (06/20/22 9:45 AM) A/G Ratio [1.0-2.5 ratio] 1.6 ratio (06/20/22 9:45 AM) BUN/Creat Ratio [6.0-22.0 ratio] 14.5 ra viri (06/20/22 9:45 AM) Globulin [1.5-3.7 g/dL] 2.1 g/dL (06/20/22 9:45 AM) Imm Gran Absolute [0.00-0.09 x10^3/mcL] 0.05 x10^3/mcL (06/20/22 9:45 AM) Imm Gran Auto [0.00-5.00 %] 0.50 % (06/20/22 9:45 AM) NRBC Auto [0.0-1.0 /100 WBC] 0.0 /100 WB C (06/20/22 9:45 AM) NRBC Absolute 0.00 x10^3/mcL *NA* (06/20/22 9:45 AM) Creatinine Level [0.66-1.25 mg/dL] 2.00 mg/dL *HI* (06/20/22 9:45 AM) Anion Gap [3.0-11.0 mmol/L] 11.0 mmol/L (06/20/22 9:45 AM) Eos, Auto [0.0-7.0 %] 12.8 % *HI* (06/20/22 9:45 AM) Radiology Reports * Exam Date Time Procedure Performing Provider Status 06/20/22 10:02 AM XR Chest 2 Views AMELIA YAN RT (R)(CT); Auth (Verified) Notes: (XR Chest 2 Views) Reason For Exam: allergic reaction XR Chest 2 Views EXAM: DX CHEST 2 VIEWS CLINICIAN'S HISTORY: allergic reaction - HISTORY REPORTED TO TECHNOLOGIST: Possible allergic reaction to medication, states edema on face, chest, and legs since yesterday w/ leg cramping today COMPARISON: 11/11/2021 FINDINGS: The cardiomediastinal silhouette and pulmonary vasculature are within normal limits. Lungs are clear without discrete consolidation, pleural effusion or pneumothorax. Skeletal structures are within normal limits for a patient of this age. IMPRESSION: No acute cardiopulmonary findings Electronically signed by: Jarrett Vaughn MD - 06/20/2022 10:06 AM Final Signed by: JARRETT VAUGHN MD Signed (Electronic Signature): 06/20/2022 10:06 am Transcribed by: GDU URL Vital Signs Most recent to oldest [Reference Range]: 1 2 3 Temperature Oral [35.8-37.3 Deg C] 36 Deg C (06/20/22 9:11 AM) Peripheral Pulse Rate [60-100 bpm] 87 bpm (06/20/22 1:34 PM) 86 bpm (06/20/22 12:48 PM) 87 bpm (06/20/22 11:57 AM) Heart Rate Monitored [60-100 bpm] 86 bpm (06/20/22 1:34 PM) 86 bpm (06/20/22 12:48 PM) 88 bpm (06/20/22 11:57 AM) Respiratory Rate [12-24 br/min] 26 br/min *HI* (06/20/22 1:34 PM) 26 br/min *HI* (06/20/22 12:48 PM) 25 br/min *HI* (06/20/22 11:57 AM) Blood Pressure [90-140/60-90 mmHg] 120/63mmHg (06/20/22 12:48 PM) 113/59mmHg (06/20/22 11:57 AM) 107/59mmHg (06/20/22 11:36 AM) Mean Arterial Pressure Cuff 83 mmHg (06/20/22 12:48 PM) 84 mmHg (06/20/22 11:57 AM) 80 mmHg (06/20/22 11:36 AM) Weight 109.60 kg (06/20/22 9:11 AM) Weight Dosing 109.60 kg (06/20/22 9:57 AM) Height 172.000 cm (06/20/22 9:11 AM) Height/Length Dosing 172.000 cm (06/20/22 9:57 AM) Body Mass Index 37.000 kg/m2 (06/20/22 9:11 AM) Social History Social History Type Response Tobacco Never tobacco user T obacco Use:. Sex Hospital Discharge Instructions Patient Education 06/20/2022 12:34:58 Acute Kidney Injury, Adult Acute Kidney Injury, [...] these instructions at home: Medicines ??? Take xjwj-tfu-buqvywc and prescription medicines only as told by [...] important. Where to find more information ??? [place] Patients: www.aakp.org ??? National Kidney Foundation: www.kidney.org ??? [employer]: www.akfinc.org ??? [facility] [...] provider. Document Revised: 04/23/2020 Document Reviewed: 04/23/2020 [employer] Patient Education ?? 2021 [employer] 06/20/2022 12:34:51 Drug Rash Drug Rash A drug rash occurs when a medicine causes a change in the color or texture of the skin. It can develop minutes, hours, or days after you take the medicine. The rash may appear on a small area of skinor all over your body. What are the causes? This condition is usually caused by your body's reaction (allergy) to a medicine. It can also be caused by exposure to sunlight after taking a medicine that makes your skin sensitive to light. Though any medicine can cause a rash or reaction, medicines that are more likely to cause rashes include: ??? Penicillin. ??? Antibiotic medicines. ??? Medicines that treat seizures. ??? Medicines that treat cancer (chemotherapy). ??? Aspirin and other NSAIDs. ??? Injectable dyes that contain iodine. ??? Insulin. What are the signs or symptoms? Symptoms of this condition include: ??? Redness. ??? Tiny bumps. ??? Peeling. ??? Itching. ??? Itchy welts (hives). ??? Swelling. How is this diagnosed? This condition may be diagnosed based on: ??? A physical exam. ??? Tests to find out which medicine caused the rash. These tests may include: ??? Skin tests. ??? Blood tests. ??? Challenge test. For this test, you stop taking all the medicines that you do not need to take. Then, you start taking them again by adding back one medicine at a time. How is this treated? This condition is treated with medicines, including: ??? Antihistamine. This may be given to relieve itching. ??? NSAIDs. These may be given to reduce swelling and to treat pain. ??? A steroid medicine. This may be given to reduce swelling. The rash usually goes away when you stop taking the medicine that caused it. Follow these instructions at home: ??? Take rhgc-uaz-zyhqgjz and prescription medicines only as told by your health care provider. ??? Tell all your health care providers about any medicine reactions that you have had in the past. ??? If your rash was caused by sensitivity to sunlight, and while your rash is healing: ??? Avoid being in the sun if possible, especially when it is strongest, usually between 10 a.m. and 4 p.m. ??? Cover your skin with pants, long sleeves, and a hat when you are exposed to sunlight. ??? If you have hives: ??? Take a cool shower or use a cool compress to relieve itchiness. ??? Take hejk-ldf-kettlzd antihistamines, as recommended by your health care provider, until the hives are gone. Hives are not contagious. ??? Keep all follow-up visits as told by your health care provider. This is important. Contact a health care provider if you have: ??? A fever. ??? A rash that is not going away. ??? A rash that gets worse. ??? A rash that comes back. ??? Wheezing or coughing. Get help right away if: ??? You start to have breathing problems. ??? You start to have shortness of breath. ??? Your face or throat starts to swell. ??? You have severe weakness with dizziness or fainting. ??? You have chest pain. These symptoms may represent a serious problem that is an emergency. Do not wait to see if the symptoms will go away. Get medical help right away. Call your local emergency services (911 in the [place] Do not drive yourself to the hospital. Summary ??? A drug rash occurs when a medicine causes a change in the color or texture of the skin. The rash may appear on a small area of skin or all over your body. ??? It can develop minutes, hours, or days after you take the medicine. ??? Your health care provider will do various tests to determine what medicine caused your rash. ??? The rash may be treated with medicine to relieve itching, swelling, and pain. This information is not intended to replace advice given to you by your health care provider. Make sure you discuss any questions you have with your health care provider. Document Revised: 08/22/2021 Document Reviewed: 09/25/2020 [employer]D Patient Education ?? 2021 [employer]. Follow Up Care 06/20/2022 09:11:46 With:JARRETT MOHR MSN,HANDSTITCHING MACHINE COLLAR FELLER-BC Address: [address] [place] [address]- When:3 to 5 days Comments:Return for repeat labs on Wednesday.?? Move to every other day dosing for Levaquin.?? Return to ED as indicated Physician Emergency department Note * IKE SAEZ MSN,HANDSTITCHING MACHINE COLLAR FELLER-BC: PERFORM Event Display: ED Note Physician Authored Date: [id number] SILVIO MOYER :1945 Age:77 years Sex:Male Visit Date:06/20/2022 Primary Care Physician: JARRETT MOHR MSN,HANDSTITCHING MACHINE COLLAR FELLER- Basic Information Time Seen: IKE SAEZ MSN,HANDSTITCHING MACHINE COLLAR FELLER-BC / 06/20/2022 09:14 Chief Complaint Patient had an allergic reaction to his vancomycin and has generalized red rash and states getting worse, yesterday throat and tongue swollen, eyes swollen has taken bendryl every 6 hours, last dose hour ago. diarrhea for 2 days History Of Present Illness: Winston is a 77 year old male patient presenting for evaluation of an allergic reaction.?? Pt has been on Vancomycin for an infection in his knee for awhile, states on the developed a rash and facial swelling, he was evaluated and treated with Benadryl, Vanc discontinued and moved to [facility].?? Reports since then he has not gotten better and symptoms continue to worsen.?? States he continues tohave facial swelling, yesterday felt like his tongue was swollen and has developed diarrhea.?? Denies vomiting.?? Denies dyspnea.?? Denies CP.?? He has been taking Benadryl every 6 hours at home.?? Review of Systems: Ten system review negative unless otherwise??noted in HPI.? Physical Exam Vitals & Measurements T:??36?C ??(Oral)?? HR:??87??(Peripheral)?? HR:??88??(Monitored)?? RR:??25?? BP:??113/59?? SpO2:??96%?? HT:??172.000??cm?? WT:??109.60??kg?? BMI:??37.000?? Pain Score:??3?? O2 Therapy:??Room air?? General:?NAD, Appears stated age, Oriented x 3 Eyes:?EOMI, PERRLA, Periorbital edema HENT:?NC/AT, No nasal drainage, Oral mucosa moist/clear, No oropharyngeal edema, Edema noted to cheeks Neck:?? No lymphadenopathy CV:?RRR Lungs:? CTA Bilaterally, No wheezes/rales/rhonchi Abdomen:? Non-tender, Normal bowel sounds Extremities:?No clubbing/cyanosis Neuro:?No lateralizing deficits Skin:?? Head to toe maculopapular rash Medical Decision Making: Appropriate labs and diagnostic studies ordered and reviewed Reexamination/Reevaluation Pt was promptly seen and evaluated with appropriate studies and interventions ordered.?Discussedthe pt with Pharmacy.?? It's not unreasonable to assume this is still related to the Vancomycin as he'd been getting it at large doses for awhile.?? Given advancement of symptoms we discussed options, he was given Epi and Solu-Medrol with improvement in symptoms.??Creatinine today is at 2 and GFR 33, worsened from previous, likely why he isn't clearing the Vancomycin.?? Pt was given fluids.?? I discussed admission with the pt, he does prefer to return home and does live close.?? An additional fluid bolus given and we will have him move his Levaquin to every other day dosing.?? Repeat labs ordered for Wednesday and close follow up with PCP encouraged.?? Pt is non-toxic appearing and in no acutedistress.?? Discussed s/s that would require immediate attention.?? Additional verbal discharge instructions given.? Assessment/Plan Acute kidney injury??N17.9 Ordered: Discharge Patient - ED, 06/20/22 12:35:00 MARBLE INSTALLER SUPERVISOR, Home Independently ?? Allergic reaction??T78.40XA Ordered: Discharge Patient - ED, 06/20/22 12:35:00 MARBLE INSTALLER SUPERVISOR, Home Independently ?? Orders: Basic Metabolic Panel, Blood, Routine, *Est. 06/22/22, Once, Lab Collect, Order for future visit Patient Education Acute Kidney Injury, Adult Drug Rash Follow Up With When Contact Information JARRETT MOHR MSN,HANDSTITCHING MACHINE COLLAR FELLER-BC Within 3 to [address] [place] [address]- Additional Instructions: Return for repeat labs on Wednesday.?? Move to every other day dosing for Levaquin.?? Return to ED as indicated Medication Reconciliation Unchanged acetaminophen (Tylenol 8 HR [...] 6 weeks. will be recieving through the [facility] Outpatient infusion clinic. Refills: 0. Problem List/Past [...] (12/02/2021)???Screening colonoscopy (Repeat 2021) (12/01/2016)???Appendectomy???Cholecystectomy???Removal of cataract Medication Administration Given EPINEPHrine Injection 1 mg/mL, 0.3 mg, IM methylPREDNISolone sodium succinate 40 mg injection, 80 mg, IV Push normal saline bolus, 1000 mL, Hydration Bolus NS bolus, 1000 mL, Hydration Bolus Allergies vancomycin??(Facial swelling, Orbital swelling, Rash) Social History Alcohol Current, Beer, Wine, [...] MOTHER, at age: Unknown. Cause of : Diagnostic Results XR Chest 2 Views 06/20/2022 10:09 MARBLE INSTALLER SUPERVISOR XR Chest 2 Views ?? 06/20/22 10:01:51 EXAM: DX CHEST 2 VIEWS ?? CLINICIAN???S HISTORY: allergic reaction_ ?? HISTORY REPORTED TO TECHNOLOGIST: Possible allergic reaction to medication, states edema on face, chest, and legs since yesterday w/ leg cramping today ?? COMPARISON: 11/11/2021 ?? FINDINGS: The cardiomediastinal silhouette and pulmonary vasculature are within normal limits. Lungs are clear without discrete consolidation, pleural effusion or pneumothorax. Skeletal structures are within normal limits for a patient of this age. ?? IMPRESSION: No acute cardiopulmonary findings ? Electronically signed by: ?? Signed By: JARRETT VAUGHN MD Diagnostic Study Interpretation: X-Ray: ?? XR Chest 2 Views ?? 06/20/22 10:01:51 EXAM: DX CHEST 2 VIEWS ?? CLINICIAN???S HISTORY: allergic reaction_ ?? HISTORY REPORTED TO TECHNOLOGIST: Possible allergic reaction to medication, states edema on face, chest, and legs since yesterday w/ leg cramping today ?? COMPARISON: 11/11/2021 ?? FINDINGS: The cardiomediastinal silhouette and pulmonary vasculature are within normal limits. Lungs are clear without discrete consolidation, pleural effusion or pneumothorax. Skeletal structures are within normal limits for a patient of this age. ?? IMPRESSION: No acute cardiopulmonary findings ? Electronically signed by: ?? Signed By: JARRETT VAUGHN MD ? Lab Results CBC and Differential?? LATEST RESULTS?? HISTORICAL RESULTS?? WBC?? 06/20/22 09:45?? 10.5?? 06/17/22?? 8.0?? RBC?? 06/20/22 09:45?? 4.51?? 06/17/22?? 4.14 ??Low?? Hgb?? 06/20/22 09:45?? 13.3 ??Low?? 06/17/22?? 12.2 ??Low?? Hct?? 06/20/22 09:45?? 40.7 ??Low?? 06/17/22?? 37.4 ??Low?? MCV?? 06/20/22 09:45?? 90?? 06/17/22?? 90?? MCH?? 06/20/22 09:45?? 29.5?? 06/17/22?? 29.5?? MCHC?? 06/20/22 09:45?? 32.7?? 06/17/22?? 32.6?? RDW-CV?? 06/20/22 09:45?? 14.5?? 06/17/22?? 14.6?? Platelets?? 06/20/22 09:45?? 235?? 06/17/22?? 202?? MPV?? 06/20/22 09:45?? 10?? 06/17/22?? 10?? Neutro Auto?? 06/20/22 09:45?? 62.3?? 05/15/22?? 58.0?? Lymph Auto?? 06/20/22 09:45?? 12.4 ??Low?? 05/15/22?? 30.2?? [place] Auto?? 06/20/22 09:45?? 11.2?? 05/15/22?? 8.5?? Eos, Auto?? 06/20/22 09:45?? 12.8 ??High?? 05/15/22?? 2.1?? Basophil Auto?? 06/20/22 09:45?? 0.8?? 05/15/22?? 0.6?? Imm Gran Auto?? 06/20/22 09:45?? 0.50?? 05/15/22?? 0.60?? NRBC Auto?? 06/20/22 09:45?? 0.0?? 05/15/22?? 0.0?? Neutro Absolute?? 06/20/22 09:45?? 6.56?? 05/15/22?? 4.19?? Lymph Absolute?? 06/20/22 09:45?? 1.30?? 05/15/22?? 2.18?? [place] Absolute?? 06/20/22 09:45?? 1.18?? 05/15/22?? 0.61?? Eos Absolute?? 06/20/22 09:45?? 1.35 ??High?? 05/15/22?? 0.15?? Baso Absolute?? 06/20/22 09:45?? 0.08?? 05/15/22?? 0.04?? Imm Gran Absolute?? 06/20/22 09:45?? 0.05?? 05/15/22?? 0.04?? NRBC Absolute?? 06/20/22 09:45?? 0.00?? 05/15/22?? 0.00? Routine Chemistry?? LATEST RESULTS?? HISTORICAL RESULTS?? Sodium Level?? 06/20/22 09:45?? 135?? 06/17/22?? 137?? Potassium Level?? 06/20/22 09:45?? 4.3?? 06/17/22?? 3.5?? Chloride Level?? 06/20/22 09:45?? 99?? 06/17/22?? 102?? CO2?? 06/20/22 09:45?? 25?? 06/17/22?? 25?? Alk Phos?? 06/20/22 09:45?? 36 ??Low?? 06/17/22?? 47?? AST?? 06/20/22 09:45?? 39?? 06/17/22?? 54 ??High?? ALT?? 06/20/22 09:45?? 58 ??High?? 06/17/22?? 85 ??High?? BUN?? 06/20/22 09:45?? 29 ??High?? 06/17/22?? 14?? Glucose Level?? 06/20/22 09:45?? 185 ??High?? 06/17/22?? 186 ??High?? Creatinine Level?? 06/20/22 09:45?? 2.00 ??High?? 06/17/22?? 1.40 ??High?? BUN/Creat Ratio?? 06/20/22 09:45?? 14.5?? 06/17/22?? 10.0?? eGFR AA?? 06/20/22 09:45?? 40 ??Low?? 06/17/22?? 60?? eGFR Non-AA?? 06/20/22 09:45?? 33 ??Low?? 06/17/22?? 49 ??Low?? Calcium Level?? 06/20/22 09:45?? 8.4?? 06/17/22?? 8.0 ??Low?? Protein Total?? 06/20/22 09:45?? 5.6 ??Low?? 06/17/22?? 5.4 ??Low?? Albumin Level?? 06/20/22 09:45?? 3.4 ??Low?? 06/17/22?? 3.5?? Globulin?? 06/20/22 09:45?? 2.1?? 06/17/22?? 1.9?? A/G Ratio?? 06/20/22 09:45?? 1.6?? 06/17/22?? 1.8?? Bilirubin Total?? 06/20/22 09:45?? 0.6?? 06/17/22?? 0.7?? Anion Gap?? 06/20/22 09:45?? 11.0?? 06/17/22?? 10.0?? CRP?? 06/20/22 09:45?? 27.9 ??High?? 06/17/22?? 35.1 ??High? Electronically Signed on 06/20/22 12:37 PM IKE SAEZ Ravi MSN,HANDSTITCHING MACHINE COLLAR FELLER-BC Emergency department Discharge instructions * KIRSTIN SILVA RN: PERFORM Event Display: ED Discharge Information Authored Date: [id number] DWAYNEFRANCKMAAME SILVIO Escobar :1945 Age:77 years Sex:Male Visit Date:06/20/2022 Primary Care Physician: JARRETT MOHR MSN,HANDSTITCHING MACHINE COLLAR FELLER-BC Discharge Instructions We would like to thank you for allowing us to assist you with your healthcare needs. The following includes patient education materials and information regarding your injury/illness. Diagnosis from Today's Visit Acute kidney injury Allergic reaction Discharge Vitals Temperature??(Oral) 96.8 ??F (36 ??C) Heart Rate??(Peripheral) 87 Heart Rate??(Monitored) 86 Respiratory Rate?? 26 Blood Pressure?? 120/63?? Height?? 67.72 in (172.000 cm) Weight?? 241.67 lb (109.60 kg) BMI?? 37.000 Allergies vancomycin??(Facial swelling, Orbital swelling, Rash) What to Do Next You Need to Schedule the Following Appointments Follow Up with??JARRETT MOHR MSN,HANDSTITCHING MACHINE COLLAR FELLER-BC When:??Within 3 to 5 days Why: Return for repeat labs on Wednesday.?? Move to every other day dosing for Levaquin.?? Return to ED as indicated Where: [address] [place] [address]- Future Orders Basic Metabolic Panel, Blood, Routine, *Est. 06/22/22, Once, Lab Collect, Order for future visit You were treated today on an emergency [...] 6 weeks will be recieving through the [facility] Outpatient infusion clinic ?? Education Materials Acute Kidney Injury, Adult Acute kidney injury [...] these instructions at home: Medicines ? Take rsmo-rps-znzzheg and prescription medicines only as told by [...] important. Where to find more information ? [place] Kidney Patients: www.aakp.org ? National Kidney Foundation: www.kidney.org ? [employer]: www.akfinc.org ? [facility] [...] provider. Document Revised: 04/23/2020 Document Reviewed: 04/23/2020 [employer] Patient Education ?? 2021 [employer] Drug Rash A drug rash occurs when a medicine causes a change in the color or texture of the skin. It can develop minutes, hours, or days after you take the medicine. The rash may appear on a small area of skinor all over your body. What are the causes? This condition is usually caused by your body's reaction (allergy) to a medicine. It can also be caused by exposure to sunlight after taking a medicine that makes your skin sensitive to light. Though any medicine can cause a rash or reaction, medicines that are more likely to cause rashes include: ? Penicillin. ? Antibiotic medicines. ? Medicines that treat seizures. ? Medicines that treat cancer (chemotherapy). ? Aspirin and other NSAIDs. ? Injectable dyes that contain iodine. ? Insulin. What are the signs or symptoms? Symptoms of this condition include: ? Redness. ? Tiny bumps. ? Peeling. ? Itching. ? Itchy welts (hives). ? Swelling. How is this diagnosed? This condition may be diagnosed based on: ? A physical exam. ? Tests to find out which medicine caused the rash. These tests may include: ? Skin tests. ? Blood tests. ? Challenge test. For this test, you stop taking all the medicines that you do not need to take. Then, you start taking them again by adding back one medicine at a time. How is this treated? This condition is treated with medicines, including: ? Antihistamine. This may be given to relieve itching. ? NSAIDs. These may be given to reduce swelling and to treat pain. ? A steroid medicine. This may be given to reduce swelling. The rash usually goes away when you stop taking the medicine that caused it. Follow these instructions at home: ? Take qlkx-kxo-ydffjwb and prescription medicines only as told by your health care provider. ? Tell all your health care providers about any medicine reactions that you have had in the past. ? If your rash was caused by sensitivity to sunlight, and while your rash is healing: ? Avoid being in the sun if possible, especially when it is strongest, usually between 10 a.m. and 4 p.m. ? Cover your skin with pants, long sleeves, and a hat when you are exposed to sunlight. ? If you have hives: ? Take a cool shower or use a cool compress to relieve itchiness. ? Take sgay-prb-trkafgi antihistamines, as recommended by your health care provider, until the hives are gone. Hives are not contagious. ? Keep all follow-up visits as told by your health care provider. This is important. Contact a health care provider if you have: ? A fever. ? A rash that is not going away. ? A rash that gets worse. ? A rash that comes back. ? Wheezing or coughing. Get help right away if: ? You start to have breathing problems. ? You start to have shortness of breath. ? Your face or throat starts to swell. ? You have severe weakness with dizziness or fainting. ? You have chest pain. These symptoms may represent a serious problem that is an emergency. Do not wait to see if the symptoms will go away. Get medical help right away. Call your local emergency services (911 in the [place] Do not drive yourself to the hospital. Summary ? A drug rash occurs when a medicine causes a change in the color or texture of the skin. The rash may appear on a small area of skin or all over your body. ? It can develop minutes, hours, or days after you take the medicine. ? Your health care provider will do various tests to determine what medicine caused your rash. ? The rash may be treated with medicine to relieve itching, swelling, and pain. This information is not intended to replace advice given to you by your health care provider. Make sure you discuss any questions you have with your health care provider. Document Revised: 08/22/2021 Document Reviewed: 09/25/2020 Elsevier Patient Education ?? 2021 [employer] Tests Performed Radiology XR Chest 2 Views 06/20/2022 10:09 MARBLE INSTALLER SUPERVISOR Medications and Immunizations Administered Given EPINEPHrine Injection 1 mg/mL, 0.3 mg, IM methylPREDNISolone sodium succinate 40 mg injection, 80 mg, IV Push normal saline bolus, 1000 mL, Hydration Bolus NS bolus, 1000 mL, Hydration Bolus Lab Test Name Test Result Date/Time WBC 10.5 x10^3/mcL 06/20/2022 09:45 MARBLE INSTALLER SUPERVISOR RBC 4.51 x10^6/mcL 06/20/2022 09:45 MARBLE INSTALLER SUPERVISOR Hgb 13.3 g/dL 06/20/2022 09:45 MARBLE INSTALLER SUPERVISOR Hct 40.7 % 06/20/2022 09:45 MARBLE INSTALLER SUPERVISOR MCV 90 fL 06/20/2022 09:45 MARBLE INSTALLER SUPERVISOR MCH 29.5 pg 06/20/2022 09:45 MARBLE INSTALLER SUPERVISOR MCHC 32.7 % 06/20/2022 09:45 MARBLE INSTALLER SUPERVISOR RDW-CV 14.5 % 06/20/2022 09:45 MARBLE INSTALLER SUPERVISOR Platelets 235 x10^3/mcL 06/20/2022 09:45 MARBLE INSTALLER SUPERVISOR MPV 10 06/20/2022 09:45 MARBLE INSTALLER SUPERVISOR Neutro Auto 62.3 % 06/20/2022 09:45 MARBLE INSTALLER SUPERVISOR Lymph Auto 12.4 % 06/20/2022 09:45 MARBLE INSTALLER SUPERVISOR [place] Auto 11.2 % 06/20/2022 09:45 MARBLE INSTALLER SUPERVISOR Eos, Auto 12.8 % 06/20/2022 09:45 MARBLE INSTALLER SUPERVISOR Basophil Auto 0.8 % 06/20/2022 09:45 MARBLE INSTALLER SUPERVISOR Imm Gran Auto 0.50 % 06/20/2022 09:45 MARBLE INSTALLER SUPERVISOR NRBC Auto 0.0 /100 WBC 06/20/2022 09:45 MARBLE INSTALLER SUPERVISOR Neutro Absolute 6.56 x10^3/mcL 06/20/2022 09:45 MARBLE INSTALLER SUPERVISOR Lymph Absolute 1.30 x10^3/mcL 06/20/2022 09:45 MARBLE INSTALLER SUPERVISOR [place] Absolute 1.18 x10^3/mcL 06/20/2022 09:45 MARBLE INSTALLER SUPERVISOR Eos Absolute 1.35 x10^3/mcL 06/20/2022 09:45 MARBLE INSTALLER SUPERVISOR Baso Absolute 0.08 x10^3/mcL 06/20/2022 09:45 MARBLE INSTALLER SUPERVISOR Imm Gran Absolute 0.05 x10^3/mcL 06/20/2022 09:45 MARBLE INSTALLER SUPERVISOR NRBC Absolute 0.00 x10^3/mcL 06/20/2022 09:45 MARBLE INSTALLER SUPERVISOR Sodium Level 135 mmol/L 06/20/2022 09:45 MARBLE INSTALLER SUPERVISOR Potassium Level 4.3 mmol/L 06/20/2022 09:45 MARBLE INSTALLER SUPERVISOR Chloride Level 99 mmol/L 06/20/2022 09:45 MARBLE INSTALLER SUPERVISOR CO2 25 mmol/L 06/20/2022 09:45 MARBLE INSTALLER SUPERVISOR Alk Phos 36 unit/L 06/20/2022 09:45 MARBLE INSTALLER SUPERVISOR AST 39 unit/L 06/20/2022 09:45 MARBLE INSTALLER SUPERVISOR ALT 58 unit/L 06/20/2022 09:45 MARBLE INSTALLER SUPERVISOR BUN 29 mg/dL 06/20/2022 09:45 MARBLE INSTALLER SUPERVISOR Glucose Level 185 mg/dL 06/20/2022 09:45 MARBLE INSTALLER SUPERVISOR Creatinine Level 2.00 mg/dL 06/20/2022 09:45 MARBLE INSTALLER SUPERVISOR BUN/Creat Ratio 14.5 ratio 06/20/2022 09:45 MARBLE INSTALLER SUPERVISOR eGFR AA 40 mL/min/1.73 m2 06/20/2022 09:45 MARBLE INSTALLER SUPERVISOR eGFR Non-AA 33 mL/min/1.73 m2 06/20/2022 09:45 MARBLE INSTALLER SUPERVISOR Calcium Level 8.4 mg/dL 06/20/2022 09:45 MARBLE INSTALLER SUPERVISOR Protein Total 5.6 g/dL 06/20/2022 09:45 MARBLE INSTALLER SUPERVISOR Albumin Level 3.4 g/dL 06/20/2022 09:45 MARBLE INSTALLER SUPERVISOR Globulin 2.1 g/dL 06/20/2022 09:45 MARBLE INSTALLER SUPERVISOR A/G Ratio 1.6 ratio 06/20/2022 09:45 MARBLE INSTALLER SUPERVISOR Bilirubin Total 0.6 mg/dL 06/20/2022 09:45 MARBLE INSTALLER SUPERVISOR Anion Gap 11.0 mmol/L 06/20/2022 09:45 MARBLE INSTALLER SUPERVISOR CRP 27.9 mg/L 06/20/2022 09:45 MARBLE INSTALLER SUPERVISOR Patient/Hospitalist Medical Director Signature Patient Name:SILVIO MOYER I have received this information and my questions have been answered. Patient/Hospitalist Medical Director Name: Patient/Hospitalist Medical Director Signature: Relationship to Patient: Witness Name/Signature: Date: Electronically Signed on: 06/20/2022 13:35 CSTSigned by:ARLEN XR Chest 2 Views * Generated Domain User for [id number]: OANH HUGO Generated Domain User for [id number]: JARRETT GILMAN MD: VERIFY, VERIFY JARRETT VAUGHN MD: VERIFY Event Display: Report EXAM: DX CHEST 2 VIEWS CLINICIAN'S HISTORY: allergic reaction - HISTORY REPORTED TO TECHNOLOGIST: Possible allergic reaction to medication, states edema on face, chest, and legs since yesterday w/ leg cramping today COMPARISON: 11/11/2021 FINDINGS: The cardiomediastinal silhouette and pulmonary vasculature are within normal limits. Lungs are clear without discrete consolidation, pleural effusion or pneumothorax. Skeletal structures are within normal limits for a patient of this age. IMPRESSION: No acute cardiopulmonary findings Electronically signed by: Jarrett Vaughn MD - 06/20/2022 10:06 AM Final Signed by: JARRETT VAUGHN MD Signed (Electronic Signature): 06/20/2022 10:06 am Transcribed by: LEESAU Note * Generated Domain User for [id number]: JARRETT GILMAN MD: VERIFY Event Display: Report Patient Care team information Personnel Name: JARRETT MOHR MSN,HANDSTITCHING MACHINE COLLAR FELLER- Address: Address: [address] [place], [place] [address]
--- OUTSIDE RECORDS SUMMARY | 2023-03-20 19:16 | XMS_ITS | Continuity of Care Document ---
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 Angioedema Rash Severe Active Assessment and Plan Future Appointments Immunizations Given [...] [facility]acy: [facility], 172.08, cm, 05/15/22 18:25:00 REGIONAL ACCOUNT DIRECTOR, Height/Length Dosing, 106.4, kg, 05/15/22 18:25:00 REGIONAL ACCOUNT DIRECTOR, Weight Dosing Start Date: 06/17/22 Stop Date: [...] Pharmacy: [facility], 172.08, cm, 05/15/22 18:25:00 REGIONAL ACCOUNT DIRECTOR, Height/Length Dosing, 106.4, kg, 05/15/22 18:25:00 REGIONAL ACCOUNT DIRECTOR, Weight Dosing Start Date: 05/28/22 Status: Ordered [...] arerunning, # 180 tab, 1 Refill(s), Pharmacy: [facility], 172, cm, 12/03/21 [...] 24 hr, [place] recieving through the [facility] [place], # [...] Confirmed Active 1Records from Dr. Riley Diane, [facility] 2Records from Dr. Riley Diane, [facility] 3Records from Dr. Riley Diane [facility] 4Records from Dr. Riley Diane [facility] 5Records from Dr. Riley Diane, [facility] Procedures Procedure Date Related Diagnosis Body [...] sessile polyp Records from Dr. Riley Diane [facility] 3Records from Dr. Riley Diane [facility] 4Records from Dr. Riley Diane [facility] 5Records from Dr. Riley Diane [facility] Results Radiology Reports * Exam Date Time Procedure Performing Provider Status 06/24/22 9:58 AM US Lower Ext Venous Duplex Right LIBAN MILLER RDMS,RVT; Auth (Verified) Notes: (US Lower Ext Venous Duplex Right) Reason For Exam: leg swelling, elevated dimer URL US Lower Ext Venous Duplex Right Ultrasound images were obtained using pulse and color Doppler EXAM: US DUPLEX VENOUS LEG RT CLINICIAN'S HISTORY: leg swelling, elevated dimer - HISTORY REPORTED TO TECHNOLOGIST: LEG SWELLING,EDEMA COMPARISON: None. TECHNIQUE: Duplex venous ultrasound of the right lower extremity with White Scale, Spectral Doppler and Color Flow. FINDINGS: The right common femoral, superficial femoral, proximal profunda, proximal greater saphenous, popliteal, and posterior tibialis venous systems are patent with no evidence of thrombosis. Peroneal vein not visualized. Edema from the lower thoracic through the ankle is seen. There is no associated hyperemia. IMPRESSION: 1. No evidence of deep venous thrombosis in the right lower extremity. 2. Subcutaneous edema throughout the right lower extremity. Electronically signed by: Candida Dhaliwal MD - 06/24/2022 10:07 AM Final Signed by: CANDIDA DHALIWAL MD Signed (Electronic Signature): 06/24/2022 10:07 am Transcribed by: CR Social History Social History Type Response Tobacco Never tobacco user T obacco Use:. Sex US.doppler Lower extremity vein - right * Generated Domain User for [id number]: CANDIDA JOHNSON MD: VERIFY Event Display: Report Note * Generated Domain User for [id number]: TRANSCRIBE, TRANSCRIBE Generated Domain User for [id number]: TRANSCRIBE CANDIDA DHALIWAL MD: VERIFY, VERIFY CANDIDA DHALIWAL MD: VERIFY Event Display: Report Ultrasound images were obtained using pulse and color Doppler EXAM: US DUPLEX VENOUS LEG RT CLINICIAN'S HISTORY: leg swelling, elevated dimer - HISTORY REPORTED TO TECHNOLOGIST: LEG SWELLING,EDEMA COMPARISON: None. TECHNIQUE: Duplex venous ultrasound of the right lower extremity with White Scale, Spectral Doppler and Color Flow. FINDINGS: The right common femoral, superficial femoral, proximal profunda, proximal greater saphenous, popliteal, and posterior tibialis venous systems are patent with no evidence of thrombosis. Peroneal vein not visualized. Edema from the lower thoracic through the ankle is seen. There is no associated hyperemia. IMPRESSION: 1. No evidence of deep venous thrombosis in the right lower extremity. 2. Subcutaneous edema throughout the right lower extremity. Electronically signed by: Candida Dhaliwal MD - 06/24/2022 10:07 AM Final Signed by: CANDIDA DHALIWAL MD Signed (Electronic Signature): 06/24/2022 10:07 am Transcribed by: CR Patient Care team information Personnel Name: MOHRJARRETT MSN,TIMBER FRAMER HELPER- Address: Address: [address] [place], [place] [address]
--- OUTSIDE RECORDS SUMMARY | 2023-03-20 19:16 | XMS_ITS | Continuity of Care Document ---
Author Name Unknown Organization [facility] ter Address [address] [place] [address] Care Team Providers Care Asbestos Microscopist Name Role Phone JARRETT MOHR Primary Care Physician Encounter [facility] [id number] Date(s): 05/21/22 - 05/21/22 [facility] [address] [place] [address] Discharge Disposition: Home or Self Care Attending Physician: JARRETT MOHR MSN,PLISSE MACHINE OPERATOR-BC Admitting Physician: JARRETT MOHR MSN,PLISSE MACHINE OPERATOR-BC Referring Physician: JARRETT MOHR MSN,PLISSE MACHINE OPERATOR-BC Allergies, Adverse Reactions, Alerts No Known Medication Allergies Assessment and Plan Future Appointments Appointment Date:05/22/2022 09:30:00 AM Scheduled Provider: Location:[facility] [...] Future Scheduled Tests Laboratory* Vancomycin Lvl Trough 05/26/22 * Creatinine 05/26/22 Immunizations Given and Recorded Vaccine Date Status Refusal Reason influenza virus vaccine, inactivated 03/23/22 Give n influenza virus vaccine, inactivated 04/03/21 Jalil rded influenza virus vaccine, inactivated 04/29/20 Give n SARS-CoV-2 mRNA-1273 bivalent booster 03/11/22 Giv en SARS-CoV-2 (COVID-19) mRNA-1273 vaccine 4/29/22 G iven SARS-CoV-2 (COVID-19) mRNA-1273 vaccine 04/25/21 [...] Instructions, # 100 EA, 5 Refill(s), Pharmacy: [facility] Start Date: 07/01/21 Status: Ordered glipiZIDE 10 mg oral tablet 5 mg = 0.5 tab, Oral, Daily, # 180 tab, 1 Refill(s), [facility]acy: [facility], 172, cm, 12/03/21 13:07:00 CDT, Height/Length Dosing, 112, kg, 12/03/21 13:07:00 CDT, Weight Dosing Start Date: 01/23/22 Status: Ordered irbesartan 300 mg oral tablet 1 tab, Oral, Daily, # 90 tab, 1 Refill(s), [facility], 172, cm, 12/03/21 13:07:00 CDT, Height/Length Dosing, 112, kg, 12/03/21 13:07:00 CDT, Weight Dosing Start Date: 12/23/21 Status: Ordered Libre2 sensors Libre2 sensors, please dispense 2 sensors with a refill. thanks - patient has a coupon card, Supply, See Instructions, # 1 EA, 0 Refill(s), Pharmacy: [facility] Start Date: 09/11/21 Status: Ordered metFORMIN [...] will [place]ie[place] [facility] [place], # 42 EA, 0 [...] Confirmed Active 1Records from Dr. Riley Diane, [facility] 2Records from Dr. Riley Diane, [facility] 3Records from Dr. Riley Diane, [facility] 4Records from Dr. Riley Diane, [facility] 5Records from Dr. Riley Diane, [facility] Procedures Procedure Date Related Diagnosis Body Site Status Right total knee arthroplasty. 04/21/22 Completed Left total knee arthroplasty. 12/02/21 Completed Screening colonoscopy (Repeat 2021) 1 12/01/16 Completed Appendectomy 2 Completed Cholecystectomy 3 Complet ed Removal of cataract 4 Com pleted 12 mm sessile polyp Records from Dr. Riley Diane, [facility] 2Records from Dr. Riley Diane, [facility] 3Records from Dr. Riley Diane, [facility] 4Records from Dr. Riley Diane, [facility] Results Laboratory List Name Date Creatinine 05/21/22 Vancomycin Lvl Trough 05/21/22 Most recent to oldest [Reference Range]: 1 Vanco Tr [10.0-20.0 mcg/mL] 14.0 mcg/mL (05/21/22 8:40 AM) eGFR Non-AA [>=60 mL/min/1.73 m2] 73 mL/ min/1.73 m2 (05/21/22 8:40 AM) eGFR AA [>=60 mL/min/1.73 m2] 88 mL/min/ 1.73 m2 (05/21/22 8:40 AM) Creatinine Level [0.66-1.25 mg/dL] 1.00 mg/dL (05/21/22 8:40 AM) Social History Social History Type Response Smoking Status Never (less than 100 in lifetime) entered on: 06/16/21 Sex Patient Care team information Personnel Name: JARRETT MOHR MSN,PLISSE MACHINE OPERATOR- Address: Address: [address]
--- OUTSIDE RECORDS SUMMARY | 2023-03-20 19:16 | XMS_ITS | Continuity of Care Document ---
Author Name Unknown Organization [facility] ter Address [address] [place] [address] Care Team Providers Care Rubber Splicer Name Role Phone JARRETT MOHR Primary Care Physician Encounter [facility] Date(s): 06/30/22 - 06/30/22 [facility] [address] [place] [id number] Discharge Disposition: Home or Self Care Attending Physician: JARRETT MOHR MSN,WOODWINDS TEACHER-BC Admitting Physician: JARRETT MOHR MSN,WOODWINDS TEACHER-BC Referring Physician: KALEE GUO MSN,WOODWINDS TEACHER-BC Allergies, Adverse Reactions, Alerts Substance Reaction [...] [facility]acy: [facility], [facility].08, cm, 06/28/22 12:24:00 MANAGER STRATEGIC ALLIANCES, Height/Length Dosing, 109.5, kg, 06/26/22 12:11:00 MANAGER STRATEGIC ALLIANCES, Weight Dosing Start Date: 06/30/22 Status: Ordered furosemide 20 mg oral tablet 40 mg = 2 tab, Oral, BID, # 8 tab, 0 Refill(s), Pharmacy: [facility], 172.08, cm, 06/26/22 12:11:00 MANAGER STRATEGIC ALLIANCES, Height/Length Dosing, 109.5, kg, 06/26/22 12:11:00 MANAGER STRATEGIC ALLIANCES, Weight Dosing Start Date: 06/28/22 Status: Ordered furosemide 40 mg oral tablet 40 mg = 1 tab, Oral, BID, # 30 tab, 0 Refill(s), [facility]acy: [facility], 172.08, cm, 06/26/22 12:11:00 MANAGER STRATEGIC ALLIANCES, Height/Length Dosing, 109.5, kg, 06/26/22 12:11:00 MANAGER STRATEGIC ALLIANCES, Weight Dosing Start Date: 06/28/22 Status: Ordered glipiZIDE 10 mg oral tablet 5 mg = 0.5 tab, Oral, Daily, # 180 tab, 1 Refill(s), [facility]acy: [facility], 172.08, cm, 05/15/22 18:25:00 MANAGER STRATEGIC ALLIANCES, Height/Length Dosing, 106.4, kg, 05/15/22 18:25:00 MANAGER STRATEGIC ALLIANCES, Weight Dosing Start Date: 05/28/22 Status: Ordered irbesartan 300 mg oral tablet 1 tab, Oral, Daily, # 90 tab, 1 Refill(s), [facility]acy: [facility], 172.08, cm, 06/28/22 12:24:00 MANAGER STRATEGIC ALLIANCES, Height/Length Dosing, 109.5, kg, 06/26/22 12:11:00 MANAGER STRATEGIC ALLIANCES, Weight Dosing Start Date: 06/30/22 Status: Ordered Libre2 sensors Libre2 sensors, please dispense 2 sensors with a refill. thanks - patient has a coupon card, Supply, See Instructions, # 1 EA, 0 Refill(s), Pharmacy: [facility] Start Date: 09/11/21 Status: Ordered metFORMIN 1000 mg oral tablet 1 tab, Oral, BID, # 180 tab, 1 Refill(s), [facility]acy[facility], 172.08, cm, 06/28/22 12:24:00 MANAGER STRATEGIC ALLIANCES,Height/Length Dosing, 109.5, kg, 06/26/22 12:11:00 MANAGER STRATEGIC ALLIANCES, Weight Dosing Start Date: 06/30/22 Status: Ordered propranolol 120 mg oral capsule, extended release 1 cap, Oral, Daily, # 90 cap, 1 Refill(s), Pharmacy: [facility], 172.08, cm, 06/28/22 12:24:00 MANAGER STRATEGIC ALLIANCES, Height/Length Dosing, 109.5, kg, 06/26/22 12:11:00 MANAGER STRATEGIC ALLIANCES, Weight Dosing Start Date: 06/30/22 Status: Ordered sildenafil 25 mg oral tablet 25 mg = 1 tab, Oral, Daily, 1 hour before sexual activity, # 10 tab, 0 Refill(s), Pharmacy: [facility] Start Date: 07/01/21 Status: Ordered Tylenol [...] Dr. Riley Diane, [facility] 2Records from Dr. Riley Diane, [facility] 3Records from Dr. Riley Diane, [facility] 4Records from Dr. Riley Diane, [facility] 5Records from Dr. Riley Diane, [facility] Procedures Procedure Date Related Diagnosis Body Site [...] Dr. Riley Diane, [facility] 3Records from Dr. Riley Diane, [facility] 4Records from Dr. Riley Diane, [facility] 5Records from Dr. Riley Diane, [facility] Results Laboratory List Name Date Basic Metabolic Panel (BMP) 06/30/22 Most recent to oldest [Reference Range]: 1 BUN [6-20 mg/dL] 57 mg/dL *HI* (06/30/22 8:17 AM) Glucose Level [70-100 mg/dL] 206 mg/dL *HI* (06/30/22 8:17 AM) Potassium Level [3.5-5.5 mmol/L] 4.5 mmo l/L (06/30/22 8:17 AM) Sodium Level [135-150 mmol/L] 136 mmol/L (06/30/22 8:17 AM) Calcium Level [8.4-10.4 mg/dL] 9.2 mg/dL (06/30/22 8:17 AM) CO2 [22-32 mmol/L] 35 mmol/L *HI* (06/30/22 8:17 AM) eGFR Non-AA [>=60 mL/min/1.73 m2] 28 mL/ min/1.73 m2 *LOW* (06/30/22 8:17 AM) eGFR AA [>=60 mL/min/1.73 m2] 34 mL/min/ 1.73 m2 *LOW* (06/30/22 8:17 AM) Chloride Level [95-110 mmol/L] 89 mmol/L *LOW* (06/30/22 8:17 AM) BUN/Creat Ratio [6.0-22.0 ratio] 24.8 ra viri *HI* (06/30/22 8:17 AM) Creatinine Level [0.66-1.25 mg/dL] 2.30 mg/dL *HI* (06/30/22 8:17 AM) Anion Gap [3.0-11.0 mmol/L] 12.0 mmol/L *HI* (06/30/22 8:17 AM) Social History Social History Type Response Tobacco Never tobacco user T obacco Use:. Sex Patient Care team information Personnel Name: JARRETT MOHR MSN,[facility]- Address: Address: [address], [place] [address]
--- OUTSIDE RECORDS SUMMARY | 2023-03-20 19:16 | XMS_ITS | Continuity of Care Document ---
Author Name Unknown Organization [facility] ter Address [address] [place] [address] Care Team Providers Care Shaft Mechanic Name Role Phone JARRETT MOHR Primary Care Physician Encounter REG_[place] Date(s): 07/24/22 - 07/24/22 [facility] [address] [place] [address] Discharge Disposition: Home or Self Care Attending Physician: JARRETT MOHR MSN,SENIOR SUSTAINABILITY ADVISOR-BC Admitting Physician: JARRETT MOHR MSN,SENIOR SUSTAINABILITY ADVISOR-BC Referring Physician: JARRETT MOHR MSN,SENIOR SUSTAINABILITY ADVISOR-BC Allergies, Adverse Reactions, Alerts Substance Reaction Severity [...] [facility], 172.08, cm, 06/28/22 12:24:00 MANAGER PAPER, Height/Length Dosing, 109.5, kg, 06/26/22 12:11:00 MANAGER PAPER, Weight Dosing Start Date: 06/30/22 Status: Ordered furosemide 20 mg oral tablet 40 mg = 2 tab, Oral, BID, # 8 tab, 0 Refill(s), Pharmacy: [facility], 172.08, cm, 06/26/22 12:11:00 MANAGER PAPER, Height/Length Dosing, 109.5, kg, 06/26/22 12:11:00 MANAGER PAPER, Weight Dosing Start Date: 06/28/22 Status: Ordered furosemide 40 mg oral tablet 40 mg = 1 tab, Oral, BID, # 30 tab, 0 Refill(s), Pharmacy: [facility], 172.08, cm, 06/26/22 12:11:00 MANAGER PAPER, Height/Length Dosing, 109.5, kg, 06/26/22 12:11:00 MANAGER PAPER, Weight Dosing Start Date: 06/28/22 Status: Ordered glipiZIDE 10 mg oral tablet 5 mg = 0.5 tab, Oral, Daily, # 180 tab, 1 Refill(s), Pharmacy: [facility], 172.08, cm, 05/15/22 18:25:00 MANAGER PAPER, Height/Length Dosing, 106.4, kg, 05/15/22 18:25:00 MANAGER PAPER, Weight Dosing Start Date: 05/28/22 Status: Ordered irbesartan 300 mg oral tablet 1 tab, Oral, Daily, # 90 tab, 1 Refill(s), Pharmacy: [facility], 172.08, cm, 06/28/22 12:24:00 MANAGER PAPER, Height/Length Dosing, 109.5, kg, 06/26/22 12:11:00 MANAGER PAPER, Weight Dosing Start Date: 06/30/22 Status: Ordered Libre2 sensors Libre2 sensors, please dispense 2 sensors with a refill. thanks - patient has a coupon card, Supply, See Instructions, # 1 EA, 0 Refill(s), Pharmacy: [facility] Start Date: 09/11/21 Status: Ordered metFORMIN 1000 mg oral tablet 1 tab, Oral, BID, # 180 tab, 1 Refill(s), Pharmacy: [facility], 172.08, cm, 06/28/22 12:24:00 MANAGER PAPER,Height/Length Dosing, 109.5, kg, 06/26/22 12:11:00 MANAGER PAPER, Weight Dosing Start Date: 06/30/22 Status: Ordered propranolol 120 mg oral capsule, extended release 1 cap, Oral, Daily, # 90 cap, 1 Refill(s), Pharmacy: [facility], 172.08, cm, 06/28/22 12:24:00 MANAGER PAPER, Height/Length Dosing, 109.5, kg, 06/26/22 12:11:00 MANAGER PAPER, Weight Dosing Start Date: 06/30/22 Status: Ordered sildenafil 25 mg oral tablet 25 mg = 1 tab, Oral, Daily, 1 hour before sexual activity, # 10 tab, 0 Refill(s), Pharmacy: [email or web address] Start Date: 07/01/21 Status: Ordered Tylenol [...] Confirmed Active 1Records from Dr. Riley Diane, [facility] 2Records from Dr. Riley Diane, [facility] 3Records from Dr. Riley Diane, [facility] 4Records from Dr. Riley Diane, [facility] 5Records from Dr. Riley Diane, [facility] Procedures Procedure Date Related Diagnosis Body [...] sessile polyp Records from Dr. Riley Diane, [facility] 3Records from Dr. Riley Diane, [facility] 4Records from Dr. Riley Diane, [facility] 5Records from Dr. Riley Diane, [facility] Results Laboratory List Name Date Basic Metabolic Panel 07/24/22 Most recent to oldest [Reference Range]: 1 BUN [6-20 mg/dL] 27 mg/dL *HI* (07/24/22 9:14 AM) Glucose Level [70-100 mg/dL] 216 mg/dL *HI* (07/24/22 9:14 AM) Potassium Level [3.5-5.5 mmol/L] 3.9 mmo l/L (07/24/22 9:14 AM) Sodium Level [135-150 mmol/L] 138 mmol/L (07/24/22 9:14 AM) Calcium Level [8.4-10.4 mg/dL] 9.4 mg/dL (07/24/22 9:14 AM) CO2 [22-32 mmol/L] 27 mmol/L (07/24/22 9:14 AM) eGFR Non-AA [>=60 mL/min/1.73 m2] 46 mL/ min/1.73 m2 *LOW* (07/24/22 9:14 AM) eGFR AA [>=60 mL/min/1.73 m2] 55 mL/min/ 1.73 m2 *LOW* (07/24/22 9:14 AM) Chloride Level [95-110 mmol/L] 97 mmol/L (07/24/22 9:14 AM) BUN/Creat Ratio [6.0-22.0 ratio] 18.0 ra viri (07/24/22 9:14 AM) Creatinine Level [0.66-1.25 mg/dL] 1.50 mg/dL *HI* (07/24/22 9:14 AM) Anion Gap [3.0-11.0 mmol/L] 14.0 mmol/L *HI* (07/24/22 9:14 AM) Social History Social History Type Response Tobacco Never tobacco user T obacco Use:. Sex Patient Care team information Personnel Name: JARRETT MOHR MSN,[facility]- Address: Address: [address]
--- OUTSIDE RECORDS SUMMARY | 2023-03-20 19:16 | XMS_ITS | Continuity of Care Document ---
Author Name Unknown Organization [facility] ter Address [address] [place] [address] Care Team Providers Care Research Kennel Supervisor Name Role Phone JARRETT MOHR Primary Care Physician [phone] Encounter [facility] [id number] Date(s): 06/02/22 - 06/02/22 [facility] [place] [address] [place] [phone] Discharge Disposition: Home or Self Care Attending Physician: SARAI BOWEN MSN,AGACNP-BC,RADAR SIGNAL PROCESSING ENGINEER-BC Admitting Physician: SARAI BOWEN MSN,AGACNP-BC,RADAR SIGNAL PROCESSING ENGINEER-BC Referring Physician: SARAI BOWEN MSN,AGACNP-BC,RADAR SIGNAL PROCESSING ENGINEER-BC Allergies, Adverse Reactions, Alerts No Known Medication Allergies Assessment and Plan Future Appointments Appointment Date:06/03/2022 09:30:00 AM Scheduled Provider: Location:[facility] [...] Future Scheduled Tests Laboratory* Vancomycin Lvl Trough 06/09/22 * Creatinine 06/09/22 Immunizations Given and Recorded Vaccine Date Status [...] Instructions, # 100 EA, 5 Refill(s), [facility]: [facility] Start Date: 07/01/21 Status: Ordered glipiZIDE 10 mg oral tablet 2 tab, Oral, Daily, # 180 tab, 1 Refill(s), Pharmacy: [facility], 172.08, cm, 05/15/22 18:25:00 WATER QUALITY ASSISTANT, Height/Length Dosing, 106.4, kg, 05/15/22 18:25:00 WATER QUALITY ASSISTANT, Weight Dosing Start Date: 05/28/22 Status: Ordered irbesartan 300 mg oral tablet 1 tab, Oral, Daily, # 90 tab, 1 Refill(s), Pharmacy: [facility], 172, cm, 12/03/21 13:07:00 CDT, Height/Length [...] activity, # 10 tab, 0 Refill(s), Pharmacy: [facility] Start Date: 07/01/21 Status: Ordered Tylenol [...] Confirmed Active 1Records from Dr. Riley Diane, [facility] 2Records from Dr. Riley Diane, [facility] 3Records from Dr. Riley Diane, [facility] 4Records from Dr. Riley Diane, [facility] 5Records from Dr. Riley Diane, [facility] Procedures Procedure Date Related Diagnosis Body Site [...] sessile polyp Records from Dr. Riley Diane, [facility] 3Records from Dr. Riley Diane, [facility] 4Records from Dr. Riley Diane, [facility] 5Records from Dr. Riley Diane, [facility] Results Laboratory List Name Date Vancomycin Lvl Trough 06/02/22 Most recent to oldest [Reference Range]: 1 Vanco Tr [10.0-20.0 mcg/mL] 13.7 mcg/mL (06/02/22 9:04 AM) Social History Social History Type Response Smoking Status Never (less than 100 in lifetime) entered on: 06/16/21 Sex Patient Care team information Personnel Name: ONUR JARRETT J MSN,RADAR SIGNAL PROCESSING ENGINEER- Address: Address: [address]
[2023-03-20 19:36] LABS: Lactate* 2.2 mmol/L (0.5-1.9)
[2023-03-20 19:38] LABS: Basophils Percent Auto 0.1 % (0.0-3.0); Eosinophils Percent Auto 0.2 % (0.0-7.0); Hematocrit 42.3 % (37.0-53.0); Immature Granulocytes Pct Auto 0.2 %; Lymphocytes Percent Auto 5.8 % (20-44); Mean Corpuscular HGB Conc 33 gm/dL (32-36); Mean Corpuscular Hemoglobin 30 pg (26-34); Mean Corpuscular Volume 90 fL (80-100); Monocytes Percent Auto 7.2 % (0.0-11.0); Neutrophils Percent Auto 86.5 % (42.0-72.0); Platelet Count* 192 K/uL (140-440); RDW Coefficient of Variation % 13.4 % (11.5-15.5); Red Blood Count 4.71 m/uL (4.30-5.90); White Blood Count* 13.58 K/uL (4.50-11.00)
[2023-03-20 19:39] LABS: Slide Review Reflex No
[2023-03-20 19:51] LABS: Albumin* 4.2 g/dL (3.3-5.0); Chloride* 100 mmol/L (96-114); Sodium* 134 mmol/L (135-149)
[2023-03-20 19:52] LABS: Potassium* 4.6 mmol/L (3.6-5.1)
[2023-03-20 19:54] LABS: Anion Gap 12 mEq/L (7-15); Aspartate Amino Transferase* 38 U/L (12-35); Bilirubin Total* 1.1 mg/dL (0.1-1.5); Carbon Dioxide* 22 mmol/L (20-32); Creatinine* 1.6 mg/dL (0.5-1.5); Estimated Glomerular Filt Rate 44 ml/min; Total Protein* 7.1 g/dL (6.0-8.3)
[2023-03-20 19:55] LABS: Alanine Aminotransferase* 31 U/L (4-50); Alkaline Phosphatase* 29 U/L (40-150); Blood Urea Nitrogen* 30 mg/dL (7-30); Calcium* 9.6 mg/dL (8.4-10.6); Glucose* 230 mg/dL (60-115)
[2023-03-20 20:08] LABS: C Reactive Protein* 25.7 mg/dL (0.5-1.0)
[2023-03-20 20:12] LABS: Erythrocyte SedimentationRate* 20 mm/hr (2-15)
[2023-03-20] MEDS: 0.9 % SODIUM CHLORIDE 1000 ml 1,000 ML 500 ML IV (20:40)
[2023-03-20] MEDS: ACETAMINOPHEN 500 MG TABLET 1000 MG PO (21:03)
[2023-03-20] MEDS: ONDANSETRON 2 MG/ML inj 4 MG IVP (21:03)
[2023-03-20] MEDS: lidocaine HCL 2 % MULTIDOSE 20 ML VIAL INJECTION (21:10)
--- NOTE | 2023-03-20 21:56 | P.ORCN_ITS ---
History of Present Illness HPI Date Seen: 03/20/23 Consult date: 03/20/23 Requesting physician: Jonna Valdez Consult reason: joint pain Chief complaint: R knee pain Narrative: Very pleasant 77-year-old male presents with approximately 3 day duration right knee pain, swelling, decreasing range of motion, stiffness, most recently today (03/20/2023) nausea, fevers with no objective measured fevers at home. In ED today, 101.3F temperature. Painful to walk due to right knee pain. He is visiting the area from [place], staying in [place] with his son. Plan is to go to [place] a fishing trip. Due to unrelenting right knee pain, he presented to [facility] ER ric[facility], driving himself. Approximately 2 weeks ago, patient fell directly onto the right knee after tripping on a throw rug. Noted scuffing the knee. He placed a bandage. Eventually scab developed over the kneecap. No significant drainage. There was no misstep in a slightly flexed right knee. No knee manipulation. Was able to walk on the knee post fall without issue. His past medical history is pertinent for right TKA, approximately April 2022. He then developed infection in this right knee 3 weeks postop, and returned to the operating room for what sounds like poly exchange. Per his report, it does not appear they exchanged the femoral and tibial component, nor the patellar component. He was on 33 days of vancomycin until reported reaction to vancomycin; thus stopping vancomycin. The right knee did okay after all this, but never did as well as his left knee. He feels he achieved most of his ROM, but was unable to participate fully in his PT compared to his left knee, as he was taking care of his who was sick (ALS). His in November 2022. History also pertinent for left TKA November 2021. He has had no issues with the left TKA. [place] shoulders, [place] hips. Receives corticosteroid injections for his bilateral shoulders. Patient is type 2 diabetic, on metformin. No insulin. Reports to me recent A1c upper 7s. Review of Systems Narrative: No recent infections in the past few weeks. No numbness or tingling distally. No respiratory issues, chest pain, or diabetic issues. He reports feeling nauseous when coming to the hospital today (03/20/2023), but admits not having an appetite today due to not feeling well. He had a granola bar on the way to the hospital tonight. Const: Reports: fever and chills PFSH [facility] Social History Smoking Status: Never smoker How often do you have a drink containing alcohol: never AUDIT-C Alcohol total score: 0 Non-prescribed substance use: denies use Meds Home Medications and Allergies Home Medications Medication Instructions Recorded Confirmed Type flash glucose sensor (FreeStyle 03/20/23 03/20/23 History Nadira 2 Sensor kit) furosemide 20 mg tablet 20 mg PO DAILY PRN swelling 03/20/23 03/20/23 History irbesartan 75 mg tablet 75 mg PO DAILY 03/20/23 03/20/23 History propranolol 120 mg capsule,24 120 mg PO DAILY 03/20/23 03/20/23 History hr,extended release Allergies Allergy/AdvReac Type Severity Reaction Status Date / Time atorvastatin Allergy Verified 03/20/23 18:29 vancomycin Allergy Verified 03/20/23 18:29 Allergies/Adverse Reaction Comments: Significant allergy to vancomycin status post right TKA following septic joint. Ortho Exam Narrative Exam Narrative: General: Well-developed, well-nourished, A&Ox 3, no apparent acute distress. Patient appears relaxed. He does not appear acutely sick. Pulmonary: Breathing pattern regular, even, without apparent distress or audible wheeze present. Right Knee: Moderate swelling, moderate effusion with a palpable wave suprapatellar pouch. No Ecchymosis Small scab directly over the central/mid patella approximately 8 mm in diameter without drainage, or bev-wound erythema. No foul odor Generalized erythema anterior mid lower leg which spreads grossly over the medial lower leg and wraps both medial and lateral distal third lower leg. This is marked with a marker, and appears to encompass majority of his anterior and medial lower leg. 2+ pitting edema over the erythematous region. Notable warmth over this region as well as the knee. The erythema does not resolve with elevation above his heart after 30 seconds. Tender to palpation lateral tibial plateau, lateral retinaculum, lateral joint line Resting range of motion 5? flexion AROM - not able to perform PROM 5-10 degrees exquisitely painful Unable to perform straight leg raise due to pain; however noted palpable defect at the superior pole patella/quad tendon Stable to varus and valgus stress at 5? 2+ DP/PT pulses, pink warm digits with brisk cap refill; intact dermatomes and myotomes distally including the common peroneal, tibial, saphenous, and sural nerve distributions Const Vital Signs, click to edit/add: Vital Signs - 24 hr 03/20/23 18:30 Temperature 98.5 F Pulse Rate [Right Pulse Oximeter] 95 Respiratory Rate 18 Blood Pressure [Right Upper Arm] 159/78 H Pulse Oximetry 96 Oxygen Delivery Method Room Air Results Labs Labs: Laboratory Results - last 48 hr 03/20/23 19:25 WBC 13.58 H RBC 4.71 Hgb 14.0 Hct 42.3 MCV 90 MCH 30 MCHC 33 RDW Coeff of Geovanni 13.4 Plt Count 192 Neut % (Auto) 86.5 H Lymph % (Auto) 5.8 L Mccreary % (Auto) 7.2 Eos % (Auto) 0.2 Baso % (Auto) 0.1 Neut # (Auto) 11.70 H Lymph # (Auto) 0.80 L Mccreary # (Auto) 1.00 H Eos # (Auto) 0.00 Baso # (Auto) 0.00 Abs Immat Gran (auto) 0.00 Imm/Tot Granulo (auto) 0.2 ESR 20 H Sodium 134 L Potassium 4.6 Chloride 100 Carbon Dioxide 22 Anion Gap 12 BUN 30 Creatinine 1.6 H Estimated GFR 44 Glucose 230 H Lactate 2.2 H Uric Acid 9.0 H Calcium 9.6 Total Bilirubin 1.1 AST 38 H ALT 31 Alkaline Phosphatase 29 L C-Reactive Protein 25.7 H Total Protein 7.1 Albumin 4.2 Procalcitonin 38.30 H Diagnostic results Knee x-ray: report reviewed and image reviewed Additional Comments: Nonweightbearing, AP, lateral views of the right knee ordered by different provider [facility] dated 03/20/2023. These images were reviewed and corroborated with the radiology report showing right TKA with femoral, tibial, and patellar components in good position without evidence of loosening or subsi dence. We note the cement mantle. There is no obvious radiolucency around the components. Soft tissue swelling and moderate effusion suprapatellar pouch. No obvious periprosthetic fracture or further interosseous pathology. Procedures Joint Aspiration/Injection Joint Asp./Inject. 1: Time out performed: Yes Side of body: right Joint aspirated: knee (Right knee joint suprapatellar pouch) Details: without imaging Ultrasound guidance: No Skin prep: Chlorhexidine Local anesthesia used: lidocaine 1% (With epinephrine) Amount of anesthesia used (ml): 2 (mL) Needle size used: Other (25 gauge for local injection, 16 gauge for aspiration) Fluid obtained: purulent (Kaya pus, slightly blood tinged) Total fluid obtained (ml): 65 (mL) Patient tolerated procedure: well and no complications Complications: none Assessment and Plan Assessment and plan (1) Septic joint of right knee joint: Status: Acute (2) Hx of total knee arthroplasty: Problem comment: Right TKA April 2022, left TKA November 2021 Status: Acute (3) History of revision of total knee arthroplasty: Problem comment: Due to septic right TKA 3 weeks postop, reported poly exchange and IV vancomycin Status: Acute (4) Type 2 diabetes mellitus: Problem comment: Non insulin-dependent Status: Acute Plan We had a thorough discussion regarding pathology. 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 Explained my concerns to the patient of which he states understanding. To help confirm s uspected diagnosis, achieve lab analysis via Gram stain, cell count with differential, and aerobic/anaerobic cultures, and to temporarily decrease the bacterial load in the right knee joint, my recommendation is to perform right knee joint aspiration now. He agrees to this. Risks, benefits, and alternatives to aspiration include but are not limited to: infection (including seeding a superficial infection into the right knee joint), needle encroachment on a nerve or vascular structure, and hematoma, etc.. Patient states understanding, and elects to proceed. After sterile ChloraPrep prep of the right lateral knee and topical ethyl chloride spray was applied for topical numbing, a 25 gauge needle was inserted into the epidermis and dermis lateral knee followed by injection of 2cc 1% lidoc patel with epinephrine for numbing purposes. Then, a 16 gauge needle was inserted into the suprapatellar pouch from a lateral approach, aspirating approximately 65 mL of kaya pus. Procedure was tolerated well by the patient without complication. Band-Aid was applied. Post injection instructions given. The fluid was sent to the lab for gram stain, cell count with differential, aerobic/anaerobic cultures, and crystals. Gentle right knee passive range of motion was attempted, again only achieving 5- 10 degrees of PROM with significant pain. 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 Recommended treatment is revision right total knee arthroplasty including IV antibiotics. This will likely be a 2-stage surgery. Due to the complexity of revision total knee arthroplasties, we feel patient would be best served by a revision total knee arthroplasty surgeon. Thus, patient will be transferred from [facility] ER to a facility who can perform the staged revision.
[2023-03-20] MEDS: cefTRIAXone 1 GM in 0.9 % SODIUM CHLORIDE Mini-bag 100 ML IVPB (23:45)
--- NOTE | 2023-03-20 23:46 | ED.NURSE ---
Water and sandwich provided. Lilian with .
[2023-03-21] VITALS (18 sets, daily range): BP systolic 104–145; BP diastolic 25–118; PULSE 70–102; RESP 12–20; TEMP 36.6–37.7; O2SAT 88–98; BMI 35.5
--- NOTE | 2023-03-21 00:12 | ED.NURSE ---
Patient report to accepting MS RN.
[2023-03-21] MEDS: DAPTOmycin 50 MG/ML inj 1000 MG IV (00:21)
--- NOTE | 2023-03-21 01:35 | P.IMHP_ITS ---
Hospitalist- H&P: HPI History of Present Illness Time Seen by Provider: 00:55 Date Seen: 03/21/23 Chief complaint: R knee pain Narrative: Eddie Bearden is a 77 year old male who is seen as an interactive telehealth visit. Winston has a significant past medical history of previous right total knee arthroplasty in March of last year. He states that approximately 3 weeks after his surgery he was diagnosed with septic arthritis and did undergo what sounds to be 6 weeks of IV antibiotics which I believe was vancomycin. Winston gives a history that approximately 2 weeks ago he fell onto his right knee with an acute abrasion. He states that approximately 1-1/2 weeks ago he started having some pain in that right knee and swelling. He states that 2 days ago he started noticing some erythema and swelling around the knee and leg and today he was unable to even stand on his right leg/knee due to the severe pain that he was experiencing. He states the pain is significantly severe with any kind of bending of his knee. With his inability to walk or stand, he presented to the emergency room. In the emergency room he was evaluated and an aspiration of that knee joint did show kaya purulent material consistent with acute septic arthritis with surrounding erythema consistent with cellulitis. The on-call orthopedics doctor was contacted and plans for possible surgical intervention including washout is planned for tomorrow morning. They have asked us to admit Eddie for preoperative evaluation and treatment of his acute septic arthritis. At the time I am seeing Eddie, he states he has had a fever started today and it was measured at 101 in the emergency room. He states that he is moving and drove from [place] where he lives and when he got out of the car he was unable to stand on his leg due to the severe 9 out of 10 pain. He states that with t reatment in the emergency room and pain medications given he now describes the pain is approximately 1-2 out of 10. He denies any recent chest pain or shortness of breath with activity. He has not had any history of coronary artery disease. He does have diabetes mellitus type 2 but is not on insulin and is maintained on metformin. He otherwise denies any other acute complaints or problems at the time I am seeing him. Review of Systems Status of ROS: Reports: 10 or more systems reviewed and unremarkable except as noted in History and below Const: Reports: fever Musculo: Reports: extremity swelling, joint pain, limited range of motion and joint swelling PFSH [facility] Social History Smoking Status: Never smoker How often do you have a drink containing alcohol: never AUDIT-C Alcohol total score: 0 Non-prescribed substance use: denies use Meds Home Medications and Allergies Home Medications Medication Instructions Recorded Confirmed Type flash glucose sensor (FreeStyle 03/20/23 03/20/23 History Nadira 2 Sensor kit) furosemide 20 mg tablet 20 mg PO DAILY PRN swelling 03/20/23 03/20/23 History irbesartan 75 mg tablet 75 mg PO DAILY 03/20/23 03/20/23 History propranolol 120 mg capsule,24 120 mg PO DAILY 03/20/23 03/20/23 History hr,extended release Allergies Allergy/AdvReac Type Severity Reaction Status Date / Time atorvastatin Allergy Verified 03/20/23 18:29 vancomycin Allergy Verified 03/20/23 18:29 Exam Narrative: Exam Narrative: GENERAL: ?vital signs reviewed, well developed and nourished, in minimal distress HEENT: pupils are equal round and reactive to light, extraocular movements are grossly within normal limits and oral mucosa is moist. NECK: Supple without lymphadenopathy or thyromegaly according to nursing staff examination observation HEART: Regular rate and rhythm without any rubs or gallops.? A 1/6 systolic ejection murmur is best heard over the aortic area LUNGS: Clear to auscultation bilaterally with good air movement throughout ABDOMEN: Observation from nurse assisted exam, abdomen appears soft, nontender, and nondistended with Positive bowel sounds noted. EXTREMITIES: Strength and sensation is observed to be grossly within normal limits in the upper and lower extremities.? He does have obvious swelling and erythema about the right knee extending down to the mid rose area. This has been outlined by a black marker. He does have severe pain with any abducting or abducting of the right knee. Left lower extremity has trace edema noted. Right lower extremity has +1 pitting edema noted. No other deficits or abnormalities are noted in the left lower extremity or bilateral upper extremities. SKIN:? Observed warm and dry with color normal NEURO: Alert, awake and oriented ?3. Answers all questions appropriately. No focal neuro deficits are noted. PSYCH: ?Affect normal Const: Vital Signs, click to edit/add: Vital Signs - 24 hr 03/20/23 18:30 03/20/23 22:22 03/20/23 22:23 Temperature 98.5 F Pulse Rate 87 85 Pulse Rate [Right Pulse Oximeter] 95 Respiratory Rate 18 Blood Pressure 117/62 Blood Pressure [Ri ght Upper Arm] 159/78 H Pulse Oximetry 96 93 94 Oxygen Delivery Me thod Room Air 03/20/23 22:30 03/20/23 22:45 03/20/23 23:00 Temperature Pulse Rate 84 82 82 Pulse Rate [Right Pulse Oximeter] Respiratory Rate Blood Pressure Blood Pressure [Ri ght Upper Arm] Pulse Oximetry 92 91 90 Oxygen Delivery Me thod 03/20/23 23:15 03/21/23 00:24 Temperature Pulse Rate 82 80 Pulse Rate [Right Pulse Oximeter] Respiratory Rate 12 Blood Pressure 121/64 Blood Pressure [Ri ght Upper Arm] Pulse Oximetry 92 94 Oxygen Delivery Me thod Documenting provider has reviewed patient's vital signs: yes Hospitalist - H&P: Result Labs Labs: Short CBC 03/20/23 Range/Units 19:25 WBC 13.58 H (4.50-11.00) K/uL Hgb 14.0 (13.5-17.5) gm/dL Hct 42.3 (37.0-53.0) % Plt Count 192 (140-440) K/uL BMP 03/20/23 19:25 Sodium 134 L Potassium 4.6 Chloride 100 Carbon Dioxide 22 BUN 30 Creatinine 1.6 H Glucose 230 H Calcium 9.6 Liver Function 03/20/23 Range/Units 19:25 Total Bilirubin 1.1 (0.1-1.5) mg/dL AST 38 H (12-35) U/L ALT 31 (4-50) U/L Alkaline Phosphatase 29 L (40-150) U/L Albumin 4.2 (3.3-5.0) g/dL Assessment and Plan Assessment and plan (1) Septic joint of right knee joint: Status: Acute Plan ASSESSMENT: 1. Right knee pain with effusion and cellulitis consistent with acute right knee septic arthritis 2. Osteoarthritis with previous right total knee arthroplasty and postoperative infection requiring extended IV antibiotics 3. Diabetes mellitus type 2 4. Hypertension 5. Elevated Creatinine consistent with Acute kidney injury from #1 above 6. Lactic Acidosis and Fever consistent with acute sepsis from #1 above PLAN: At this time Eddie will be admitted to the medical service. I will consult orthopedics to see Eddie in the a.m. for further evaluation and treatment of his acute right knee septic arthritis. Orthopedics has been contacted and they are aware of the patient and the diagnosis. I do believe the plan is for surgical washout in the morning with further discussion on plans for his hardware with current septic arthritis. I will continue with the IV Rocephin started in the emergency room and will also continue with the IV daptomycin as well. 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 I will ask for n.p.o. status and will ask for Eddie to get IV normal saline at 125 cc/h for volume resuscitation and hydration. I will ask for follow-up chemistries and hematology labs for the a.m. and will watch his creatinine closely with his acute renal injury. I will also follow-up with a repeat lactic acid to make sure this is trending back toward normal with the current IV antibiotics and fluid resuscitation. I will put on some correction scale insulin for his current hyperglycemia and diabetes mellitus type 2. I will reorder his home medications as required for his chronic medical conditions. I have discussed this plan with Eddie and he is agreeable to proceed. I do believe that he would be able to go to surgery in the morning with normal surgical risk. We will continue to follow closely from a medical standpoint. I have addressed CODE STATUS with Eddie and he does desire full code. This will be ordered as per his wishes. Telehealth Visit:? Today's History and Physical is provided via interactive telehealth by Sukh Harper MD.? Patient is located at [facility].? Provider is located at [facility] Nursing staff assisted with the patient's exam. The visit being done today meets criteria for a telehealth visit and the patient or patient?s parent/guardian is aware the visit is a telehealth visit. Camera Start Time: 54 Camera End Time: 110 Medical Complexity: High
[2023-03-21] MEDS: 0.9 % SODIUM CHLORIDE 1000 ml 1,000 ML 125 ML IV ×2 (02:24→11:36)
[2023-03-21] MEDS: ACETAMINOPHEN 325 MG TABLET PO ×3 (02:31→23:32)
--- NOTE | 2023-03-21 05:12 | PC.NURSE ---
PATIENT PLEASANT AND COOPERATIVE, UP A1 TO STANDING, PAIN IN RIGHT KNEE 2/10 AT REST, INCREASES TO 10/10 WITH MOVEMENT, RIGHT LOWER EXTREMITY RED AND WARM TO TOUCH,
[2023-03-21 06:39] LABS: Basophils Percent Auto 0.2 % (0.0-3.0); Eosinophils Percent Auto 0.2 % (0.0-7.0); Hematocrit 35.7 % (37.0-53.0); Hemoglobin* 11.7 gm/dL (13.5-17.5); Immature Granulocytes Pct Auto 0.4 %; Mean Corpuscular HGB Conc 33 gm/dL (32-36); Mean Corpuscular Hemoglobin 30 pg (26-34); Mean Corpuscular Volume 91 fL (80-100); Monocytes Percent Auto 8.9 % (0.0-11.0); Neutrophils Percent Auto 80.3 % (42.0-72.0); Platelet Count* 217 K/uL (140-440); RDW Coefficient of Variation % 13.7 % (11.5-15.5); Red Blood Count 3.91 m/uL (4.30-5.90); White Blood Count* 13.86 K/uL (4.50-11.00)
[2023-03-21 06:55] LABS: Chloride* 101 mmol/L (96-114); Sodium* 139 mmol/L (135-149)
[2023-03-21 06:57] LABS: Creatinine* 1.7 mg/dL (0.5-1.5); Est. Creatinine Clearance* 35.76; Estimated Glomerular Filt Rate 41 ml/min
[2023-03-21 06:58] LABS: Anion Gap 12 mEq/L (7-15); Blood Urea Nitrogen* 27 mg/dL (7-30); Calcium* 9.1 mg/dL (8.4-10.6); Carbon Dioxide* 26 mmol/L (20-32); Glucose* 154 mg/dL (60-115)
[2023-03-21 07:04] LABS: Slide Review Reflex No
--- NOTE | 2023-03-21 07:42 | PM.ORPN ---
Subjective Subjective Date Seen: 03/21/23 Principal diagnosis: Septic right TKA; cellulitis right leg Interval history: Eddie is a pleasant 77 year old male who underwent right TKA approximately 03/2022. Unfortunately he developed septic right TKA soon after surgery (within the 1st 1-2 months. This was reportedly treated with open I&D with poly exchange and 6 weeks of IV antibiotics (reportedly vancomycin - he developed red man syndrome from this). Winston gives a recent history that approximately 2 weeks ago he fell onto his right knee with an acute abrasion. He states that approximately 1-1/2 weeks ago he started having some pain in that right knee and swelling. 3 days ago he started noticing some erythema and swelling around the knee and leg and today he was unable to even stand on his right leg/knee due to the severe pain that he was experiencing. He presented to the emergency room. Here, Orthopedics was consulted with concern for possible septic right TKA. An aspiration was done with 65 mL of gross purulent fluid aspirated. IV antibiotics were started and a plan for a right knee lavage communicated. I was able to speak with the patient [id number]. Ultimately, he will likely need 2 stage revision right TKA. However, he is originally from [place] and had a surgery done in [place] and still resides in [place]. He is simply visiting his son for a temporary time on his way to a fishing trip in [place] the at this moment, which is the reason they stopped into [facility]. I think it is important to try to decrease the bacterial load on his knee, thus we will plan to perform an arthroscopic lavage of the right knee. Poly exchange is not going to be sufficient to resolve his issue. But arthroscopic lavage will decrease the bacterial load, minimize his risk for developing sepsis, and decreases risk for metachronous infection with the help of IV antibiotics. He does have diabetes mellitus type 2 but is not on insulin and is maintained on metformin. He otherwise denies any other acute complaints or problems. Ortho Exam Narrative Exam Narrative: He is lying in the hospital bed. Comfortable. Alert. No anxiety. No difficulty breathing. Right knee exam shows small sub cm abrasion that is transverse over the anterior aspect of the patella near the inferior pole. Scabbed over. No active drainage. There is erythema from the proximal anterior leg extending down the anterolateral leg near to the ankle. This erythema is marked out with the purple marking pen for reference, apparently. No significant erythema around the knee itself. There is a small effusion palpated now. He is able to do an active straight leg raise today. Pain with range of motion of the knee with flexion beyond 20? this time. Palpable DP and PT pulse. Neurologic intact all 5 dermatomes and myotomes right lower extremity otherwise. Mild numbness around the lateral aspect of the knee pretty typical after TKA. Const Vital Signs, click to edit/add: Vital Signs - 24 hr 03/20/23 18:30 03/20/23 22:22 03/20/23 22:23 Temperature 98.5 F Pulse Rate 87 85 Pulse Rate [Pulse Oximeter] Pulse Rate [Right Pulse Oximeter] 95 Respiratory Rate 18 Blood Pressure 117/62 Blood Pressure [Left Arm] Blood Pressure [Right Upper Arm] 159/78 H Pulse Oximetry 96 93 94 Oxygen Delivery Method Room Air 03/20/23 22:30 03/20/23 22:45 03/20/23 23:00 Temperature Pulse Rate 84 82 82 Pulse Rate [Pulse Oximeter] Pulse Rate [Right Pulse Oximeter] Respiratory Rate Blood Pressure Blood Pressure [Left Arm] Blood Pressure [Right Upper Arm] Pulse Oximetry 92 91 90 Oxygen Delivery Method 03/20/23 23:15 03/21/23 00:24 03/21/23 01:44 Temperature 98.2 F Pulse Rate 82 80 Pulse Rate [Pulse Oximeter] 81 Pulse Rate [Right Pulse Oximeter] Respiratory Rate 12 16 Blood Pressure 121/64 Blood Pressure [Left Arm] 107/80 Blood Pressure [Right Upper Arm] Pulse Oximetry 92 94 97 Oxygen Delivery Method Room Air 03/21/23 02:31 03/21/23 03:00 Temperature 100 F H 100 F H Pulse Rate Pulse Rate [Pulse Oximeter] 102 H Pulse Rate [Right Pulse Oximeter] Respiratory Rate 16 Blood Pressure Blood Pressure [Left Arm] 104/83 Blood Pressure [Right Upper Arm] Pulse Oximetry 88 Oxygen Delivery Method Room Air Assessment and Plan Assessment and plan (1) Septic joint of right knee joint: Status: Acute Plan This septic right TKA warrants intervention. The challenge comes from his social situation. He originally and currently resides in [place]. He is visiting his son who lives in [place] at this time. His surgeon resume was from [place] as well. In my opinion, I do think an arthroscopic lavage and extensive synovectomy is prudent. This will help minimize the bacterial load. Can help the antibiotics be more effective as well. I see this as a temporary solution until he can get back to his place of residence where he will likely need a 2 stage right TKA revision with explantation, antibiotic spacer and IV antibiotic use, followed by eventual re-implantation. The knee scope lavage today though should also help decrease the risk for metachronous contralateral left septic TKA development and decrease his risk for generalized sepsis. At this time, he does not look septic as he is resting comfortably, although his heart rate is elevated, his temperature is mildly elevated, and some inflammatory markers in his serum are elevated (e.g. CRP, ESR, procalcitonin). We discussed the risks, benefits, and alternatives. I believe all questions were answered. He states understanding.
--- NOTE | 2023-03-21 08:11 | SUR.OPER ---
PATIENT QUESTIONS ANSWERED SATISFACTORILY PREOPERATIVELY.? PATIENT BROUGHT TO OR #3 PER CART.? Patient positioned supine on OR #3 bed.? The perioperative?team supported arms bilaterally on arm boards.? Final approval of positioning by surgeon.? CONTINUOUS IRRIGATION OF THE RIGHT KNEE DURING THE PROCEDURE WITH NACL.
[2023-03-21] MEDS: ROPIVACAINE 0.5% 30 ML 150 MG INJECTION (08:35)
--- NOTE | 2023-03-21 08:50 | P.ANES_ITS ---
Anesthesia Charges Start Date/Time Anesthesia Start Date: 03/21/23 Anesthesia Start Time: 07:29 Stop Date/Time Anesthesia Stop Date: 03/21/23 Anesthesia Stop Time: 08:48 Summary Emergency: [employer] [employer]
--- NOTE | 2023-03-21 08:50 | PM.ORPRC ---
Procedure Note Date of procedure: 03/21/23 Procedure: PREOPERATIVE DIAGNOSIS: 1. Right septic total knee arthroplasty POSTOPERATIVE DIAGNOSIS: 1. Right septic total knee arthroplasty PROCEDURE: 1. Right knee arthroscopic lavage for infection/septic arthritis 2. Right knee arthroscopic extensive synovectomy SURGEON: Ubaldo Apodaca M.D. CDL SERVICE TECHNICIAN: Myles Finn. Of note, an junior assistant manager was critical for this case to aid in patient positioning, knee manipulation, instrument exchange, and closure. ANESTHESIA: [Spinal] EBL: 10 mL TOURNIQUET: [30 min at 300 torr] COMPLICATIONS: [None evident] INDICATIONS: The patient is a pleasant 77-year-old male who underwent right TKA approximately 03/2022. He developed a postoperative infection that warranted open debridement, poly exchange, and 6 weeks IV antibiotics. Most recently, he sustained a fall with an abrasion to the anterior right knee. Over the coming weeks he developed some redness, pain, swelling and presented [facility] late last night. He was diagnosed with septic arthritis of this right TKA after aspiration confirmed purulence. He resides in [place], the same as where he originally had his knee replacement and knee revision. Today, surgery is indicated to decrease the bacterial load, decrease his risk for sepsis and metachronous contralateral left TKA infection, and determine proper antibiotics until he can have a 2 stage revision TKA closer to home. FINDINGS: Gross purulence upon entering the joint. Generalized inflammation throughout the synovium. TKA implants otherwise an acceptable position without evidence of gross loosening. DESCRIPTION OF PROCEDURE: After a thorough discussion of risks, benefits, and alternatives, the patient was brought to the operating room and placed upon the operating table. Induction of anesthesia was undertaken as previously noted. IV daptomycin had been administered within 8 hours of surgery. Antibiotics were held to start surgery until cultures could be obtained. Appropriate time-out was performed identifying proper patient, site, and procedure. The right lower extremity was prepped and draped in the appropriate sterile fashion using ChloraPrep. The limb was exsanguinated and tourniquet inflated. Anterolateral and anteromedial portals were established with an 11 blade, and a diagnostic arthroscopy was performed. This identified the findings as noted above. Following the diagnostic arthroscopy, arthroscopic lavage was performed using 9 L of normal saline. Additionally, torpedo shaver was utilized for extensive synovectomy of all the available/visualized synovium including the suprapatellar pouch, mediolateral gutters, anterior medial and anterolateral compartments, and within the notch. The posterior compartments were not readily accessible due to the polyethylene. Instruments were removed, excess fluid was drained, and closure performed with 4-0 nylon. Plain ropivacaine was used in the subcutaneous tissue for local anesthetic. Dressings were applied, the tourniquet deflated, and the patient was awoken from anesthesia and transferred to the PACU in stable condition. PLAN: 1. Weightbear as tolerated operative extremity. Crutch / walker ambulation assistance PRN. 2. Ice, acetominophen and/or ibuprofen, and oxycodone for pain as needed. 3. Knee range of motion and quad sets/straight leg raise regularly 4. I coordinated care with the hospitalist, Dr. Hanna. At this time, I think the patient is structurally safe to bear weight and perform range of motion of this right knee and right lower extremity. We will likely need to identify an oral antibiotic the patient may be discharged on once cultures return. Eventually, the patient would benefit from a two-stage right knee revision given recurrent infections of this right TKA. It makes sense for him to be able to do this closer to home in [place].
--- NOTE | 2023-03-21 09:15 | REH.OT ---
OT: Order received, chart reviewed. Pt to OR this am, will reschedule eval.
[2023-03-21] MEDS: SODIUM CHLORIDE 0.9 % (FLUSH) 10 ML SYRINGE 5 ML IVF ×3 (11:36→23:33)
--- NOTE | 2023-03-21 16:21 | P.IMPN_ITS ---
Progress Note: A&P Assessment and plan (1) Septic joint of right knee joint: Problem details: 03/21/2023: Preliminary wound culture growing 3 different colonies, treating with daptomycin and ceftriaxone IV. Status: Acute (2) Hx of total knee arthroplasty: Problem details: Right TKA April 2022, left TKA November 2021 Status: Acute (3) History of revision of total knee arthroplasty: Problem details: Due to septic right TKA 3 weeks postop, reported poly exchange and IV vancomycin Status: Acute (4) Type 2 diabetes mellitus: Problem details: Non insulin-dependent Status: Acute (5) Bacteremia: Problem details: Possible bacteremia. One culture growing out Gram-positive cocci in clusters and pairs. Continue with daptomycin. Status: Acute Plan 1. Continue with IV daptomycin and ceftriaxone for now. Await wound cultures and blood cultures. 2. Reviewed with Dr. Ubaldo Bowling. He will bring patient to the OR for scope irrigation, repeat cultures including tissue cultures. In time patient will have follow-up with his orthopedic surgeon to consider longer-term intervention options. 3. Patient and son are agreeable to above stated plans and recommendations. Time Spent With Patient Total time spent: 45 minutes Subjective Time Seen by Provider: 07:00 Date Seen: 03/21/23 Interval history: HPI: Eddie Bearden is a 77 year old male who is seen as an interactive telehealth visit. Winston has a significant past medical history of previous right total knee arthroplasty in March of last year. He states that approximately 3 weeks after his surgery he was diagnosed with septic arthritis and did undergo what sounds to be 6 weeks of IV antibiotics which I believe was vancomycin. Winston gives a history that approximately 2 weeks ago he fell onto his right knee with an acute abrasion. He states that approximately 1-1/2 weeks ago he started having some pain in that right knee and swelling. He states that 2 days ago he started noticing some erythema and swelling around the knee and leg and today he was unable to even stand on his right leg/knee due to the severe pain that he was experiencing. He states the pain is significantly severe with any kind of bending of his knee. With his inability to walk or stand, he presented to the emergency room. In the emergency room he was evaluated and an aspiration of that knee joint did show kaya purulent material consistent with acute septic arthritis with surrounding erythema consistent with cellulitis. The on-call orthopedics doctor was contacted and plans for possible surgical intervention including washout is planned for tomorrow morning. They have asked us to admit Eddie for preoperative evaluation and treatment of his acute septic arthritis. At the time I am seeing Eddie, he states he has had a fever started today and it was measured at 101 in the emergency room. He states that he is moving and drove from [place] where he lives and when he got out of the car he was unable to stand on his leg due to the severe 9 out of 10 pain. He states that with treatment in the emergency room and pain medications given he now describes the pain is approximately 1-2 out of 10. He denies any recent chest pain or shortness of breath with activity. He has not had any history of coronary artery disease. He does have diabetes mellitus type 2 but is not on insulin and is maintained on metformin. He otherwise denies any other acute complaints or problems at the time I am seeing him. As I visit with him this morning before surgery he indicates the pain is well controlled if he simply does not move. He notes the pain is intensified if he moves at all. He denies any chest heaviness, pressure, tightness, or pain. Denies any cough, dyspnea. Denies any syncope or near-syncope. Denies nausea or vomiting. Denies palpitations or claudication. No recent trauma or injury aside from what is specified above. No recent course of antibiotics. No other recent acute illnesses. His of multiple decades earlier this year. Patient is in the process of selling his home in [place] and trying to move to the [place] area closer to his family who live in the region. Exam Narrative: Exam Narrative: I examined the patient in his hospital bed in his hospital room. He appears comfortable and in no acute distress. Vision and hearing are grossly normal. Alert and oriented to self, place, time, situation. Friendly, articulate, cooperative. Mood and affect are congruent. Tympanic membranes are normal bilaterally. Midline nasal septum. Mallampati class 3 airway. Neck is supple. Midline trachea. No JVD or hepatojugular reflux. No carotid bruits. No adenopathy in the head and neck region. Lungs clear to auscultation without wheezing, rhonchi, or rales. Heart tones with regular rhythm, normal S1-S2. Grade 3/6 systolic murmur right upper sternal border. No gallops or rubs. Moves all 4 extremities. Const: Vital Signs, click to edit/add: Vital Signs - 24 hr 03/20/23 18:30 03/20/23 22:22 03/20/23 22:23 Temperature 98.5 F Pulse Rate 87 85 Pulse Rate [Pulse Oximeter] Pulse Rate [Right Pulse Oximeter] 95 Respiratory Rate 18 Blood Pressure 117/62 Blood Pressure [Le ft Arm] Blood Pressure [Ri ght Upper Arm] 159/78 H Pulse Oximetry 96 93 94 Oxygen Delivery Me thod Room Air 03/20/23 22:30 03/20/23 22:45 03/20/23 23:00 Temperature Pulse Rate 84 82 82 Pulse Rate [Pulse Oximeter] Pulse Rate [Right Pulse Oximeter] Respiratory Rate Blood Pressure Blood Pressure [Le ft Arm] Blood Pressure [Ri ght Upper Arm] Pulse Oximetry 92 91 90 Oxygen Delivery Me thod 03/20/23 23:15 03/21/23 00:24 03/21/23 01:44 Temperature 98.2 F Pulse Rate 82 80 Pulse Rate [Pulse Oximeter] 81 Pulse Rate [Right Pulse Oximeter] Respiratory Rate 12 16 Blood Pressure 121/64 Blood Pressure [Le ft Arm] 107/80 Blood Pressure [Ri ght Upper Arm] Pulse Oximetry 92 94 97 Oxygen Delivery Me thod Room Air 03/21/23 02:31 03/21/23 03:00 03/21/23 08:45 Temperature 100 F H 100 F H 97.8 F Pulse Rate 79 Pulse Rate [Pulse Oximeter] 102 H Pulse Rate [Right Pulse Oximeter] Respiratory Rate 16 16 Blood Pressure 123/68 Blood Pressure [Le ft Arm] 104/83 Blood Pressure [Ri ght Upper Arm] Pulse Oximetry 88 95 Oxygen Delivery Me thod Room Air Room Air 03/21/23 08:50 03/21/23 08:55 03/21/23 09:00 Temperature Pulse Rate 79 77 79 Pulse Rate [Pulse Oximeter] Pulse Rate [Right Pulse Oximeter] Respiratory Rate 16 16 16 Blood Pressure 118/69 125/69 128/118 H Blood Pressure [Le ft Arm] Blood Pressure [Ri ght Upper Arm] Pulse Oximetry 96 96 96 Oxygen Delivery Me thod Room Air Room Air Room Air 03/21/23 09:05 03/21/23 09:15 03/21/23 09:30 Temperature 98.1 F 97.9 F 97.9 F Pulse Rate 77 75 Pulse Rate [Pulse Oximeter] 72 Pulse Rate [Right Pulse Oximeter] Respiratory Rate 16 16 16 Blood Pressure 133/67 Blood Pressure [Le ft Arm] 120/77 120/77 Blood Pressure [Ri ght Upper Arm] Pulse Oximetry 96 90 Oxygen Delivery Me thod Room Air Room Air Room Air 03/21/23 09:45 03/21/23 10:00 03/21/23 11:00 Temperature 97.9 F 98.0 F 98.0 F Pulse Rate Pulse Rate [Pulse Oximeter] 70 80 Pulse Rate [Right Pulse Oximeter] Respiratory Rate 16 16 16 Blood Pressure Blood Pressure [Le ft Arm] 130/25 L 145/79 H 145/82 H Blood Pressure [Ri ght Upper Arm] Pulse Oximetry 92 93 93 Oxygen Delivery Me thod Room Air Room Air Room Air 03/21/23 15:25 Temperature 99.8 F H Pulse Rate Pulse Rate [Pulse Oximeter] 82 Pulse Rate [Right Pulse Oximeter] Respiratory Rate 16 Blood Pressure Blood Pressure [Le ft Arm] 131/70 Blood Pressure [Ri ght Upper Arm] Pulse Oximetry 94 Oxygen Delivery Me thod Labs Labs: Laboratory Results - last 24 hr 03/20/23 03/21/23 19:25 06:04 WBC 13.58 H 13.86 H RBC 4.71 3.91 L Hgb 14.0 11.7 L Hct 42.3 35.7 L MCV 90 91 MCH 30 30 MCHC 33 33 RDW Coeff of Geovanni 13.4 13.7 Plt Count 192 217 Neut % (Auto) 86.5 H 80.3 H Lymph % (Auto) 5.8 L 10.0 L [place] % (Auto) 7.2 8.9 Eos % (Auto) 0.2 0.2 Baso % (Auto) 0.1 0.2 Neut # (Auto) 11.70 H 11.10 H Lymph # (Auto) 0.80 L 1.40 [place] # (Auto) 1.00 H 1.20 H Eos # (Auto) 0.00 0.00 Baso # (Auto) 0.00 0.00 Abs Immat Gran (auto) 0.00 0.10 Imm/Tot Granulo (auto) 0.2 0.4 ESR 20 H Sodium 134 L 139 Potassium 4.6 4.0 Chloride 100 101 Carbon Dioxide 22 26 Anion Gap 12 12 BUN 30 27 Creatinine 1.6 H 1.7 H Estimated Creat Clear 35.76 Estimated GFR 44 41 Glucose 230 H 154 H Lactate 2.2 H Uric Acid 9.0 H Calcium 9.6 9.1 Total Bilirubin 1.1 AST 38 H ALT 31 Alkaline Phosphatase 29 L C-Reactive Protein 25.7 H Total Protein 7.1 Albumin 4.2 Procalcitonin 38.30 H
--- NOTE | 2023-03-21 19:02 | PC.NURSE ---
End of shift- Went into surgery this AM for R knee clean out. No reports of pain since surgery this AM. R leg is wrapped, no drainage, cap refill is good. PO intake is adequate, Order was put in to [facility]. Pt recently lost his and is grieving, offered support throughout the day. Waiting culture results from surgery to best choose ABX to treat. SBA w/ RW.
[2023-03-21] MEDS: SENNOSIDES 1 TAB TABLET 2 TAB PO (20:49)
[2023-03-21] MEDS: MELATONIN 3 MG TABLET PO (23:32)
[2023-03-21] MEDS: cefTRIAXone 1 GM in 0.9 % SODIUM CHLORIDE Mini-bag 100 ML IVPB (23:33)
[2023-03-22] MEDS: DAPTOmycin 50 MG/ML inj 500 MG IV ×2 (00:29→23:51)
[2023-03-22] MEDS: 0.9 % SODIUM CHLORIDE 1000 ml 1,000 ML 125 ML IV (00:44)
[2023-03-22 03:00] VITALS: BP 142/75; PULSE 71; RESP 20; TEMP 36.5; O2SAT 93
--- NOTE | 2023-03-22 05:42 | PC.NURSE ---
End of shift note: Pt pleasant and cooperative with cares. A&Ox4. Ambulates with SBA/Indep with walker. Right knee wrapped. Active ice to right knee. rates pain 2-3/10 with relief from prn tylenol and rest. VSS on RA. Right FA IV patent and SL.
[2023-03-22 06:00] LABS: HCO3 VBG 25 mmol/L (21-28); Lactate* 1.1 mmol/L (0.5-1.9); PCO2 VBG 42 mmHG (40-50); PO2 VBG 29.3 mmHG (25-47); pH VBG 7.389 (7.32-7.43)
[2023-03-22 06:03] LABS: Hematocrit 34.3 % (37.0-53.0); Hemoglobin* 11.3 gm/dL (13.5-17.5); Mean Corpuscular HGB Conc 33 gm/dL (32-36); Mean Corpuscular Hemoglobin 30 pg (26-34); Mean Corpuscular Volume 91 fL (80-100); Platelet Count* 220 K/uL (140-440); Red Blood Count 3.78 m/uL (4.30-5.90); White Blood Count* 11.61 K/uL (4.50-11.00)
[2023-03-22 06:06] LABS: Slide Review Reflex No
[2023-03-22 06:15] LABS: Chloride* 104 mmol/L (96-114)
[2023-03-22 06:16] LABS: Potassium* 4.2 mmol/L (3.6-5.1); Sodium* 139 mmol/L (135-149)
[2023-03-22 06:18] LABS: Creatinine* 1.5 mg/dL (0.5-1.5); Est. Creatinine Clearance* 40.53; Estimated Glomerular Filt Rate 48 ml/min
[2023-03-22 06:19] LABS: Anion Gap 10 mEq/L (7-15); Blood Urea Nitrogen* 24 mg/dL (7-30); Carbon Dioxide* 25 mmol/L (20-32); Glucose* 159 mg/dL (60-115)
[2023-03-22 06:20] LABS: Calcium* 9.2 mg/dL (8.4-10.6); Magnesium* 1.5 mg/dL (1.5-2.6)
[2023-03-22 06:31] LABS: Troponin I* 0.01 ng/mL (0.01-0.04)
[2023-03-22 06:58] LABS: NT Pro B Type NatriureticPept* 2020 pg/mL
[2023-03-22 07:20] LABS: C Reactive Protein* 31.8 mg/dL (0.5-1.0)
[2023-03-22 07:47] VITALS: BP 153/79; PULSE 78; RESP 16; TEMP 36.4; O2SAT 94
[2023-03-22] MEDS: SENNOSIDES 1 TAB TABLET 2 TAB PO ×2 (08:53→20:40)
[2023-03-22] MEDS: SODIUM CHLORIDE 0.9 % (FLUSH) 10 ML SYRINGE 5 ML IVF (08:53)
[2023-03-22] MEDS: ACETAMINOPHEN 325 MG TABLET PO ×2 (08:53→18:01)
[2023-03-22 11:30] VITALS: BP 122/89; PULSE 71; RESP 16; TEMP 36.4; O2SAT 95
--- NOTE | 2023-03-22 14:00 | P.IMPN_ITS ---
Progress Note: A&P Assessment and plan (1) Septic joint of right knee joint: Problem details: 03/20/2023: Preliminary synovial fluid culture grew out MSSA +1 other organism that has yet to be identified and sensitivities obtained; treating with daptomycin and ceftriaxone IV for now - history of adverse reaction from vancomycin in the past. Other cultures growing out Gram-positive cocci in clusters, with id and sensitivity still pending. Consider discussion with infectious disease specialists when we obtain other results. Will need more definitive orthopedic surgery intervention hereafter. Status: Acute (2) Hx of total knee arthroplasty: Problem details: Right TKA April 2022, left TKA November 2021. Status: Acute (3) History of revision of total knee arthroplasty: Problem details: Due to septic right TKA 3 weeks postop, reported poly exchange and IV vancomycin Status: Acute (4) Type 2 diabetes mellitus: Problem details: Non insulin-dependent. Will restart glipizide today. Continue with sliding scale insulin for now. Continue to hold metformin. Status: Acute (5) Bacteremia: Problem details: Possible bacteremia. One culture growing out Gram-positive cocci in clusters and pairs. Continue with daptomycin. Status: Acute (6) Acute kidney injury superimposed on chronic kidney disease: Status: Acute Plan 1. Reviewed with patient. 2. Patient and son are making a decision as to whether not he will be moving back to [place] will to have a definitive orthopedic surgery done or feel be staying here with his son and undertake more definitive orthopedic surgery here in this region. 3. Continue to mobilize as tolerated. 4. Patient agreeable with above stated plans and recommendations. Time Spent With Patient Total time spent: 40 minutes Subjective Time Seen by Provider: 09:00 Date Seen: 03/22/23 Interval history: HPI: Eddie Bearden is a 77 year old male who is seen as an interactive telehealth visit. Winston has a significant past medical history of previous right total knee arthroplasty in March of last year. He states that approximately 3 weeks after his surgery he was diagnosed with septic arthritis and did undergo what sounds to be 6 weeks of IV antibiotics which I believe was vancomycin. Winston gives a history that approximately 2 weeks ago he fell onto his right knee with an acute abrasion. He states that approximately 1-1/2 weeks ago he started h aving some pain in that right knee and swelling. He states that 2 days ago he started noticing some erythema and swelling around the knee and leg and today he was unable to even stand on his right leg/knee due to the severe pain that he was experiencing. He states the pain is significantly severe with any kind of bending of his knee. With his inability to walk or stand, he presented to the emergency room. In the emergency room he was evaluated and an aspiration of that knee joint did show kaya purulent material consistent with acute septic arthritis with surrounding erythema consistent with cellulitis. The on-call orthopedics doctor was contacted and plans for possible surgical intervention including washout is planned for tomorrow morning. They have asked us to admit Eddie for preoperative evaluation and treatment of his acute septic arthritis. At the time I am seeing Eddie, he states he has had a fever started today and it was measured at 101 in the emergency room. He states that he is moving and drove from [place] where he lives and when he got out of the car he was unable to stand on his leg due to the severe 9 out of 10 pain. He states that with treatment in the emergency room and pain medications given he now describes the pain is approximately 1-2 out of 10. He denies any recent chest pain or shortness of breath with activity. He has not had any history of coronary artery disease. He does have diabetes mellitus type 2 but is not on insulin and is maintained on metformin. He otherwise denies any other acute complaints or problems at the time I am seeing him. Postop day 1, status post scope irrigation of affected right knee. Indicates he feels better. Can now move the knee. Much less pain. No fevers, rigors, diaphoresis. Eating and drinking. Tolerating increased activity. Exam Narrative: Exam Narrative: Examined patient in his hospital room. Appears comfortable and in no acute distress. Vision and hearing are grossly normal. Alert, oriented to self, place, time, situation. Friendly, cooperative, articulate. Mood and affect are congruent. Lungs clear to auscultation. No CVA tenderness to percussion. Heart tones with regular rhythm. Abdomen with active bowel sounds, soft, nontender. Right knee region now has skin folds and I can see, much less swollen. Still erythematous and mildly warm to touch. No drainage. Synovial fluid from emergency department draw is growing out methicillin sensitive Staph coccus aureus plus another organism that has yet to be identified with sensitivities. One of 2 blood cultures drawn on admission is growing out Gram-positive cocci in clusters, yet to be identified. Tissue culture as well as synovial fluid culture obtained in the operating room are growing Gram-positive cocci in clusters, organism ID and sensitivities still pending. Const: Vital Signs, click to edit/add: Vital Signs - 24 hr 03/21/23 15:25 03/21/23 20:50 03/21/23 21:32 Temperature 99.8 F H 97.9 F Pulse Rate [Pulse Oximeter] 82 77 77 Respiratory Rate 16 20 20 Blood Pressure [Le ft Arm] 131/70 118/56 L Pulse Oximetry 94 98 Oxygen Delivery Me thod Room Air 03/21/23 23:30 03/22/23 03:00 03/22/23 07:47 Temperature 98.1 F 97.7 F 97.6 F Pulse Rate [Pulse Oximeter] 77 71 78 Respiratory Rate 18 20 16 Blood Pressure [Le ft Arm] 140/77 H 142/75 H 153/79 H Pulse Oximetry 94 93 94 Oxygen Delivery Me thod Room Air Room Air Room Air 03/22/23 11:30 Temperature 97.5 F L Pulse Rate [Pulse Oximeter] 71 Respiratory Rate 16 Blood Pressure [Le ft Arm] 122/89 Pulse Oximetry 95 Oxygen Delivery Me thod Room Air Documenting provider has reviewed patient's vital signs: yes Labs Labs: Laboratory Results - last 24 hr 03/22/23 05:54 WBC 11.61 H RBC 3.78 L Hgb 11.3 L Hct 34.3 L MCV 91 MCH 30 MCHC 33 Plt Count 220 VBG pH 7.389 VBG pCO2 42 VBG pO2 29.3 VBG HCO3 25 Sodium 139 Potassium 4.2 Chloride 104 Carbon Dioxide 25 Anion Gap 10 BUN 24 Creatinine 1.5 Estimated Creat Clear 40.53 Estimated GFR 48 Glucose 159 H Lactate 1.1 Calcium 9.2 Phosphorus 3.0 Magnesium 1.5 Troponin I 0.01 C-Reactive Protein 31.8 H NT-Pro-B Natriuret Pep 2020
[2023-03-22 15:25] VITALS: BP 160/82; PULSE 80; RESP 16; TEMP 36.7; O2SAT 96
[2023-03-22] MEDS: LACTOBACILLUS ACIDOPHILUS 1 TABLET 2 TAB PO (18:01)
[2023-03-22] MEDS: glipiZIDE 5 MG TABLET PO (18:01)
--- NOTE | 2023-03-22 18:09 | PC.NURSE ---
Pt alert and oriented. Pt had no complaints of pain. Pt did have some aches see EMAR for intervention. Pt independent in room. Pt?s son visited. Pt showered today. PA took iam wrap off knee; steri strips intact. PA instructed RN to apply tubi government affairs researcher to knee/LE to help with swelling.? ?
[2023-03-22 19:00] VITALS: BP 137/68; PULSE 75; RESP 16; TEMP 36.4; O2SAT 97
[2023-03-22] MEDS: cefTRIAXone 1 GM in 0.9 % SODIUM CHLORIDE Mini-bag 100 ML IVPB (22:39)
[2023-03-22 23:00] VITALS: BP 153/84; PULSE 63; RESP 16; TEMP 36.4; O2SAT 94
[2023-03-23 03:00] VITALS: BP 157/92; PULSE 80; RESP 16; TEMP 36.4; O2SAT 96
[2023-03-23 06:14] LABS: Hematocrit 39.7 % (37.0-53.0); Hemoglobin* 13.3 gm/dL (13.5-17.5); Mean Corpuscular HGB Conc 34 gm/dL (32-36); Mean Corpuscular Hemoglobin 30 pg (26-34); Mean Corpuscular Volume 90 fL (80-100); Platelet Count* 305 K/uL (140-440); Red Blood Count 4.41 m/uL (4.30-5.90); White Blood Count* 11.07 K/uL (4.50-11.00)
[2023-03-23 06:15] LABS: Slide Review Reflex No
[2023-03-23 06:28] LABS: Creatinine* 1.4 mg/dL (0.5-1.5); Est. Creatinine Clearance* 43.43; Estimated Glomerular Filt Rate 52 ml/min
--- NOTE | 2023-03-23 06:31 | PC.NURSE ---
End of Shift: Pt pleasant and cooperative throughout shfit, remained AO. Independent in room, tolerating regular diet well. Pt denied any pain and any need to medication. IV remains asympotmatic and patent, tolerating IV infusions well.
[2023-03-23 07:12] LABS: C Reactive Protein* 22.3 mg/dL (0.5-1.0)
[2023-03-23 07:52] VITALS: BP 164/89; PULSE 83; RESP 16; TEMP 36.7; O2SAT 95
[2023-03-23] MEDS: ACETAMINOPHEN 325 MG TABLET PO ×2 (08:42→18:29)
[2023-03-23] MEDS: LACTOBACILLUS ACIDOPHILUS 1 TABLET 2 TAB PO ×3 (08:42→18:29)
[2023-03-23] MEDS: SODIUM CHLORIDE 0.9 % (FLUSH) 10 ML SYRINGE 5 ML IVF ×3 (08:43→20:54)
[2023-03-23] MEDS: glipiZIDE 5 MG TABLET PO ×2 (08:43→18:22)
[2023-03-23] MEDS: SENNOSIDES 1 TAB TABLET 2 TAB PO ×2 (08:43→20:53)
--- NOTE | 2023-03-23 11:06 | CRLHL7_ITS ---
For Patients: As a result of the Century Cures Act, medical imaging exams and procedure reports are released immediately into your electronic medical record. You may view this report before your referring provider. If you have questions, please contact your health care provider. INDICATION: PICC placement. TECHNIQUE: Chest 1 views. COMPARISON: None. FINDINGS: Cardiovascular and mediastinum: Heart size and vasculature are normal in caliber and appearance. Right PICC with tip in the superior cavoatrial junction. Lungs and pleural spaces: Low lung volumes. Lungs are clear. No sign of infiltrate or mass. No sign of pleural effusion. No pneumothorax. Bones and soft tissues: No significant findings. IMPRESSION: Right PICC with tip in the superior cavoatrial junction. Dictated by Rd Hodgson MD @ 03/23/2023 6:12:18 PM (Electronically Signed)
[2023-03-23 11:31] VITALS: BP 145/78; PULSE 86; RESP 16; TEMP 36.8; O2SAT 95
--- NOTE | 2023-03-23 12:19 | PM.ORPN ---
Subjective Subjective Date Seen: 03/22/23 Principal diagnosis: Septic right TKA; cellulitis right leg Interval history: Patient reports doing well. No acute events over night. No significant pain. Pain managed with scheduled and PRN medications, ice. Large taking Tylenol for pain. Denies fevers, chills, aches, N/V, CP, SOB/AGUIRRE, or lightheadedness. Pain within the knee, improved from preoperative. Ortho Exam Narrative Exam Narrative: -Patient appears comfortable; no apparent acute distress -Alert and oriented times 3 -[place] bandage covers entire right lower leg, this was removed. -Operative knee mild-moderately swollen; soft tissues supple; no ecchymosis. Lower leg erythema receding within the marker outline -mild effusion -Steri-Strips overlying nylon sutures, no drainage, intact wounds -Bilateral calfs soft; no significant swelling, edema, tenderness, erythema, discoloration, warmth, or palpable cords -2+ DP/PT pulses, intact dermatomes and myotomes distally (5/5 strength). Intact straight leg raise -gentle PROM from resting at 10? flexion to 15-20 degrees flexion reproduces knee pain. Const Vital Signs, click to edit/add: Vital Signs - 24 hr 03/22/23 15:25 03/22/23 19:00 03/22/23 23:00 Temperature 98.1 F 97.6 F Pulse Rate [Pulse Oximeter] 80 75 63 Respiratory Rate 16 16 16 Blood Pressure [Left Arm] 160/82 H 137/68 Pulse Oximetry 96 97 Oxygen Delivery Method Room Air Room Air 03/22/23 23:00 03/23/23 03:00 03/23/23 07:52 Temperature 97.6 F 97.6 F 98.0 F Pulse Rate [Pulse Oximeter] 63 80 83 Respiratory Rate 16 16 16 Blood Pressure [Left Arm] 153/84 H 157/92 H 164/89 H Pulse Oximetry 94 96 95 Oxygen Delivery Method Room Air Room Air Room Air 03/23/23 11:31 Temperature 98.2 F Pulse Rate [Pulse Oximeter] 86 Respiratory Rate 16 Blood Pressure [Left Arm] 145/78 H Pulse Oximetry 95 Oxygen Delivery Method Room Air Assessment and Plan Assessment and plan (1) Septic joint of right knee joint: Problem details: 03/20/2023: Preliminary synovial fluid culture grew out MSSA +1 other organism that has yet to be identified and sensitivities obtained; treating with daptomycin and ceftriaxone IV for now - history of adverse reaction from vancomycin in the past. Other cultures growing out Gram-positive cocci in clusters, with id and sensitivity still pending. Consider discussion with infectious disease specialists when we obtain other results. Will need more definitive orthopedic surgery intervention hereafter. Status: Acute (2) Hx of total knee arthroplasty: Problem details: Right TKA April 2022, left TKA November 2021. Status: Acute (3) History of revision of total knee arthroplasty: Problem details: Due to septic right TKA 3 weeks postop, reported poly exchange and IV vancomycin Status: Acute (4) Type 2 diabetes mellitus: Problem details: Non insulin-dependent. Will restart glipizide today. Continue with sliding scale insulin for now. Continue to hold metformin. Status: Acute (5) Bacteremia: Problem details: Possible bacteremia. One culture growing out Gram-positive cocci in clusters and pairs. Continue with daptomycin. Status: Acute (6) Acute kidney injury superimposed on chronic kidney disease: Status: Acute (7) Status post arthroscopy of right knee: Problem details: 03/21/2023, for arthroscopic lavage and extensive synovectomy Status: Acute Plan - Continue IV antibiotics, daptomycin, ceftriaxone until sensitivities are available - PT/OT consult for education and assistance. Weightbear as tolerated right lower extremity. Motion as tolerated. Continue straight leg raises and heel pumps - Tubigrip for compression over his knee, no further [place] bandaging needed. Maintain watchful eye on right lower leg erythema to ensure it does not progress past the marker outline. Cover knee wounds if showering. - Prescribed analgesics as needed - DVT prophylaxis: Motion, walking, therapy - No discharge plan at this time. His plan is to return to [place] for 2 stage revision arthroplasty.
--- NOTE | 2023-03-23 12:28 | PM.ORPN ---
Subjective Subjective Date Seen: 03/23/23 Principal diagnosis: Septic right TKA; cellulitis right leg Interval history: Patient reports doing well. His son is present. No acute events over night. Pain managed with scheduled and PRN medications, ice - acetaminophen largely. Patient is walking the halls. Work with PT. Denies fevers, chills, aches, N/V, CP, SOB/AGUIRRE, or lightheadedness. He wants to consider having his revision arthroplasty performed in [place] now. Ortho Exam Narrative Exam Narrative: -Patient appears comfortable; no apparent acute distress -Alert and oriented times 3 -Tubigrip covers knee -Operative knee moderately swollen; soft tissues supple; no ecchymosis. Lower leg erythema maintained within the marker outline -moderate suprapatellar effusion, +1 pitting edema lower leg -Steri-Strips overlying nylon sutures, no drainage, intact wounds -Bilateral calfs soft; no significant swelling, edema, tenderness, erythema, discoloration, warmth, or palpable cords -2+ DP/PT pulses, intact dermatomes and myotomes distally (5/5 strength). Intact straight leg raise -gentle PROM from resting at 10? flexion to 15-20 degrees flexion reproduces knee pain. Const Vital Signs, click to edit/add: Vital Signs - 24 hr 03/22/23 15:25 03/22/23 19:00 03/22/23 23:00 Temperature 98.1 F 97.6 F Pulse Rate [Pulse Oximeter] 80 75 63 Respiratory Rate 16 16 16 Blood Pressure [Left Arm] 160/82 H 137/68 Pulse Oximetry 96 97 Oxygen Delivery Method Room Air Room Air 03/22/23 23:00 03/23/23 03:00 03/23/23 07:52 Temperature 97.6 F 97.6 F 98.0 F Pulse Rate [Pulse Oximeter] 63 80 83 Respiratory Rate 16 16 16 Blood Pressure [Left Arm] 153/84 H 157/92 H 164/89 H Pulse Oximetry 94 96 95 Oxygen Delivery Method Room Air Room Air Room Air 03/23/23 11:31 Temperature 98.2 F Pulse Rate [Pulse Oximeter] 86 Respiratory Rate 16 Blood Pressure [Left Arm] 145/78 H Pulse Oximetry 95 Oxygen Delivery Method Room Air Assessment and Plan Assessment and plan (1) Septic joint of right knee joint: Problem details: 03/20/2023: Preliminary synovial fluid culture grew out MSSA +1 other organism that has yet to be identified and sensitivities obtained; treating with daptomycin and ceftriaxone IV for now - history of adverse reaction from vancomycin in the past. Other cultures growing out Gram-positive cocci in clusters, with ID and sensitivity still pending. Consider discussion with infectious disease specialists when we obtain other results. Will need more definitive orthopedic surgery intervention hereafter. Status: Acute (2) Hx of total knee arthroplasty: Problem details: Right TKA April 2022, left TKA November 2021. Status: Acute (3) History of revision of total knee arthroplasty: Problem details: Due to septic right TKA 3 weeks postop, reported poly exchange and IV vancomycin Status: Acute (4) Type 2 diabetes mellitus: Problem details: Non insulin-dependent. Will restart glipizide today. Continue with sliding scale insulin for now. Continue to hold metformin. Status: Acute (5) Bacteremia: Problem details: Possible bacteremia. One culture growing out Gram-positive cocci in clusters and pairs. Continue with daptomycin. Status: Acute (6) Acute kidney injury superimposed on chronic kidney disease: Status: Acute (7) Status post arthroscopy of right knee: Problem details: POD 2 arthroscopic lavage and extensive synovectomy (03/21/2023) Status: Acute Plan - Continue IV antibiotics, guided by Infectious Disease consult - PT/OT consult for education and assistance - Prescribed analgesics as needed - No discharge plan at this time. Since patient now wants to remain in [place] for his revision arthroplasty, we are discussion of the next steps if the procedure can be done here at [facility], or referral placed for revision. Patient will receive PICC line 03/24/2023 for continued IV antibiotics per recommendation by Infectious Disease.
--- NOTE | 2023-03-23 14:58 | PM.IMPN1 ---
Progress Note: A&P Assessment and plan (1) Septic joint of right knee joint: Problem details: 03/20/2023: Synovial fluid cultures and tissue cultures are growing methicillin sensitive Staphylococcus aureus, pansensitive, currently on daptomycin and ceftriaxone IV - history of adverse reaction from vancomycin in the past. Discussed with Infectious Disease specialist, who recommends ongoing IV daptomycin once daily until such time as the knee hardware can be removed, then after the hardware is removed continue with IV daptomycin for 6 additional weeks. Status: Acute Assessment and Plan: PICC line placement today. (2) Hx of total knee arthroplasty: Problem details: Right TKA April 2022, left TKA November 2021. Status: Acute Assessment and Plan: Will require 2 step procedure to remove all hardware from the right knee and eventually replace it. Working with our Orthopedic surgery team to establish a safe plan for this. (3) History of revision of total knee arthroplasty: Problem details: Due to septic right TKA 3 weeks postop, reported poly exchange and IV vancomycin Status: Acute (4) Type 2 diabetes mellitus: Problem details: Non insulin-dependent. Will restart glipizide today. Continue with sliding scale insulin for now. Continue to hold metformin. Status: Acute (5) Bacteremia: Problem details: Pansensitive MSSA bacteremia. Continue with daptomycin. Status: Acute (6) Acute kidney injury superimposed on chronic kidney disease: Problem details: Creatinine 1.[address] down to 1.1 today. Status: Acute (7) Status post arthroscopy of right knee: Problem details: POD 3 arthroscopic lavage and extensive synovectomy (03/21/2023) Status: Acute Plan 1. Reviewed impression with patient and his son. 2. Answered their questions. 3. Continue with plan as specified above. 4. If patient can have the surgery done at [facility], then will keep patient inpatient until that time. Time Spent With Patient Total time spent: 45 minutes Subjective Time Seen by Provider: 10:30 Date Seen: 03/23/23 Interval history: Hospital day 3. Postop day 2, status post right knee scope irrigation. 77-year-old man status post right total knee arthroplasty March 2022 who 3 weeks subsequently developed a staph infection in that knee and was treated with vancomycin IV for a total of 6 weeks. Presented here with 1-2 week history of increasing right knee pain redness swelling. In our emergency department was found to have a septic right knee. Synovial fluid cultures from when he 1st presented to the emergency department and subsequently in the operating room grew out pansensitive MSSA. Tissue culture obtained in the operating room also grew out pansensitive MSSA. One of 2 blood cultures obtained at time of admission in the emergency department grew out pansensitive MSSA. Currently on daptomycin 500 mg IV once daily and ceftriaxone 2 g IV once daily. Indicates he feels better. Able to tolerate weight-bearing on the affected right lower extremity. Denies any fevers, rigors, diaphoresis. Eating and drinking without nausea, vomiting, heartburn, dyspepsia, dysphagia, odynophagia. Denies abdominal pain. Denies diarrhea or constipation. Tolerating oral lactobacillus acidophilus probiotic. Exam Narrative: Exam Narrative: Examine the patient in his hospital room and as he walks in the hallways. Appears comfortable and in no acute distress. Vision and hearing are grossly adequate. Alert and oriented to self, place, time, situation. Friendly, cooperative, articulate. Mood and affect are congruent. Lungs clear to auscultation. Heart tones with regular rhythm. Abdomen with active bowel sounds, soft. Nontender. Trace pretibial edema on the left and a little more so on the right. Erythema around the right knee is much improved compared to previously. Independent transfer, station, and gait. Ambulating with use of roller walker. Const: Vital Signs, click to edit/add: Vital Signs - 24 hr 03/22/23 15:25 03/22/23 19:00 03/22/23 23:00 Temperature 98.1 F 97.6 F Pulse Rate [Pulse Oximeter] 80 75 63 Respiratory Rate 16 16 16 Blood Pressure [Le ft Arm] 160/82 H 137/68 Pulse Oximetry 96 97 Oxygen Delivery Me thod Room Air Room Air 03/22/23 23:00 03/23/23 03:00 03/23/23 07:52 Temperature 97.6 F 97.6 F 98.0 F Pulse Rate [Pulse Oximeter] 63 80 83 Respiratory Rate 16 16 16 Blood Pressure [Le ft Arm] 153/84 H 157/92 H 164/89 H Pulse Oximetry 94 96 95 Oxygen Delivery Me thod Room Air Room Air Room Air 03/23/23 11:31 Temperature 98.2 F Pulse Rate [Pulse Oximeter] 86 Respiratory Rate 16 Blood Pressure [Le ft Arm] 145/78 H Pulse Oximetry 95 Oxygen Delivery Me thod Room Air Documenting provider has reviewed patient's vital signs: yes Labs Labs: Laboratory Results - last 24 hr 03/23/23 05:40 WBC 11.07 H RBC 4.41 Hgb 13.3 L Hct 39.7 MCV 90 MCH 30 MCHC 34 Plt Count 305 Creatinine 1.4 Estimated Creat Clear 43.43 Estimated GFR 52 C-Reactive Protein 22.3 H
[2023-03-23 15:45] VITALS: BP 172/88; PULSE 74; RESP 16; TEMP 36.6; O2SAT 96
--- NOTE | 2023-03-23 16:00 | CRLHL7_ITS ---
For Patients: As a result of the Cures Act, medical imaging exams and procedure reports are released immediately into your electronic medical record. You may view this report before your referring provider. If you have questions, please contact your health care provider. Indication: DETENTION ANTIBIOTICS Technique: Grayscale ultrasound images of the right basilic vein and right internal jugular vein. IMPRESSION: Sonographic guidance for right arm PICC line placement. Dictated by Moises Mejia MD @ 03/24/2023 8:51:11 AM (Electronically Signed)
[2023-03-23] MEDS: DAPTOmycin 50 MG/ML inj 500 MG IVP (18:22)
--- NOTE | 2023-03-23 18:39 | PC.NURSE ---
Pt alert and oriented. Pt had no complaints of pain. Pt independent in room. Pt up to chair multiple times during shift. Pt had PIIC line placed early evening. Pt has Tubi structural technician covering right leg/knee. Pt to have surgery on .?
[2023-03-23 19:10] VITALS: BP 151/88; PULSE 78; RESP 16; TEMP 36.6; O2SAT 94
[2023-03-23] MEDS: MELATONIN 3 MG TABLET PO (20:53)
--- NOTE | 2023-03-23 22:43 | PC.NURSE ---
Shift [id number]- Patient pleasant and cooperative- up ad lenny and tolerates well. He states knee is 'tight' or 'stiff' rather than pain. It does appear somewhat swollen, though coloration is congruent with entire leg.
[2023-03-23 23:00] VITALS: BP 172/88; PULSE 72; RESP 16; TEMP 36.6; O2SAT 98
[2023-03-24] MEDS: ACETAMINOPHEN 325 MG TABLET PO (00:04)
[2023-03-24 03:00] VITALS: BP 178/89; PULSE 71; RESP 16; TEMP 36.3; O2SAT 98
[2023-03-24] MEDS: OXYCODONE 5 MG TABLET PO ×4 (05:28→23:09)
[2023-03-24 06:28] LABS: Hemoglobin* 11.8 gm/dL (13.5-17.5); Mean Corpuscular HGB Conc 33 gm/dL (32-36); Mean Corpuscular Hemoglobin 30 pg (26-34); Mean Corpuscular Volume 90 fL (80-100); Platelet Count* 262 K/uL (140-440); Red Blood Count 3.99 m/uL (4.30-5.90); White Blood Count* 8.92 K/uL (4.50-11.00)
[2023-03-24 06:33] LABS: Slide Review Reflex No
[2023-03-24 06:43] LABS: Albumin* 3.7 g/dL (3.3-5.0); Chloride* 103 mmol/L (96-114)
[2023-03-24 06:44] LABS: Sodium* 139 mmol/L (135-149)
[2023-03-24 06:46] LABS: Anion Gap 10 mEq/L (7-15); Carbon Dioxide* 26 mmol/L (20-32); Creatinine* 1.5 mg/dL (0.5-1.5); Est. Creatinine Clearance* 40.53; Estimated Glomerular Filt Rate 48 ml/min
[2023-03-24 06:47] LABS: Blood Urea Nitrogen* 22 mg/dL (7-30); Glucose* 135 mg/dL (60-115); Phosphorus* 3.7 mg/dL (2.5-4.5)
--- NOTE | 2023-03-24 07:12 | PC.NURSE ---
SHIFT NOTE 23-07: Pt pleasant and cooperative, A&O. Up independent. Denies SOB, CP, and N/V. Pt given PRN Oxycodone and PRN Tylenol and reported relief.
[2023-03-24 07:55] VITALS: BP 160/91; PULSE 76; RESP 16; TEMP 36.8; O2SAT 97
[2023-03-24] MEDS: glipiZIDE 5 MG TABLET PO ×2 (08:00→18:02)
[2023-03-24] MEDS: LACTOBACILLUS ACIDOPHILUS 1 TABLET 2 TAB PO ×3 (08:00→18:02)
[2023-03-24] MEDS: SENNOSIDES 1 TAB TABLET 2 TAB PO ×2 (09:38→21:19)
[2023-03-24] MEDS: SODIUM CHLORIDE 0.9 % (FLUSH) 10 ML SYRINGE IVF (09:38)
[2023-03-24 11:35] VITALS: BP 140/73; PULSE 76; RESP 16; TEMP 36.6; O2SAT 95
--- NOTE | 2023-03-24 14:18 | PM.IMPN1 ---
Progress Note: A&P Assessment and plan (1) Septic joint of right knee joint: Problem details: 03/24/2023: Synovial fluid cultures and tissue cultures grew methicillin sensitive Staphylococcus aureus, pansensitive, currently on daptomycin IV - history of adverse reaction from vancomycin in the past. Discussed with Infectious Disease specialist on 03/23/2023, who recommends ongoing IV daptomycin once daily until such time as the knee hardware can be removed, then after the hardware is removed and replaced with antibiotic impregnated spacer, continue with IV daptomycin for 6 additional weeks, and if appropriate replace the hardware according to Orthopedic surgery protocol, often 90 days after hardware initially removed. Status: Acute (2) Hx of total knee arthroplasty: Problem details: Right TKA April 2022, left TKA November 2021. Status: Acute (3) History of revision of total knee arthroplasty: Problem details: Due to septic right TKA 3 weeks postop, reported poly exchange and IV vancomycin Status: Acute (4) Type 2 diabetes mellitus: Problem details: Non insulin-dependent. Will restart glipizide today. Continue with sliding scale insulin for now. Continue to hold metformin. Status: Acute (5) Bacteremia: Problem details: Pansensitive MSSA bacteremia. Continue with daptomycin. Status: Acute (6) Acute kidney injury superimposed on chronic kidney disease: Problem details: Creatinine 1.[address] down to 1.5 today. Status: Acute (7) Status post arthroscopy of right knee: Problem details: POD 4 arthroscopic lavage and extensive synovectomy (03/21/2023) Status: Acute Plan 1. Reviewed impression with patient 2. Dr. Tanner, orthopedic surgeon, has undertaken a consultation with the patient. Patient agreeable to Dr. Tanner's plan to bring him to the OR tomorrow, remove the hardware, replace with antibiotic laced spacer, and eventually replaced the hardware. Meanwhile continue with IV daptomycin for 6 weeks beyond the time that the hardware is initially removed. PICC line is in place and functional. 3. Continue with other supportive efforts. 4. Patient agreeable to above stated plans and recommendations. Time Spent With Patient Total time spent: 40 minute Subjective Time Seen by Provider: 10:00 Date Seen: 03/24/23 Interval history: Hospital day 4. Postop day 3, status post right knee scope irrigation. 77-year-old man status post right total knee arthroplasty March 2022 who 3 weeks subsequently developed a staph infection in that knee, underwent a revision and was treated with vancomycin IV for a total of 6 weeks. Presented here with 1-2 week history of increasing right knee pain redness swelling. In our emergency department was found to have a septic right knee. Synovial fluid cultures from when he 1st presented to the emergency department and subsequently in the operating room grew out pansensitive MSSA. Tissue culture obtained in the operating room also grew out pansensitive MSSA. One of 2 blood cultures obtained at time of admission in the emergency department grew out pansensitive MSSA. Currently on daptomycin 500 mg IV once daily - previously on ceftriaxone 1 g IV daily as well, which was stopped yesterday. Indicates he feels better. Able to tolerate weight-bearing on the affected right lower extremity. Denies any fevers, rigors, diaphoresis. Eating and drinking without nausea, vomiting, heartburn, dyspepsia, dysphagia, odynophagia. Denies abdominal pain. Denies diarrhea or constipation. Tolerating oral lactobacillus acidophilus probiotic. Exam Narrative: Exam Narrative: Examined in his room and in the hallway. Appears comfortable and in no acute distress. Vision and hearing are grossly normal. Alert, oriented to self, place, time, situation. Friendly, articulate, cooperative. Mood and affect are congruent. Neck is supple. Lungs clear to auscultation. Heart tones with regular rhythm. Abdomen with active bowel sounds, soft. Moving about with his roller walker independently. Const: Vital Signs, click to edit/add: Vital Signs - 24 hr 03/23/23 15:45 03/23/23 19:10 03/23/23 23:00 Temperature 97.8 F 97.9 F Pulse Rate [Dorsal is Pedis] 78 Pulse Rate [Pulse Oximeter] 74 72 Respiratory Rate 16 16 16 Blood Pressure [Le ft Arm] 172/88 H 151/88 H Pulse Oximetry 96 94 Oxygen Delivery Me thod 03/23/23 23:00 03/24/23 03:00 03/24/23 07:55 Temperature 98 F 97.4 F L 98.2 F Pulse Rate [Dorsal is Pedis] 72 Pulse Rate [Pulse Oximeter] 71 76 Respiratory Rate 16 16 16 Blood Pressure [Le ft Arm] 172/88 H 178/89 H 160/91 H Pulse Oximetry 98 98 97 Oxygen Delivery Me thod Room Air Room Air 03/24/23 11:35 Temperature 97.9 F Pulse Rate [Dorsal is Pedis] Pulse Rate [Pulse Oximeter] 76 Respiratory Rate 16 Blood Pressure [Le ft Arm] 140/73 H Pulse Oximetry 95 Oxygen Delivery Me thod Room Air Documenting provider has reviewed patient's vital signs: yes Labs Labs: Laboratory Results - last 24 hr 03/24/23 06:13 WBC 8.92 RBC 3.99 L Hgb 11.8 L Hct 36.0 L MCV 90 MCH 30 MCHC 33 Plt Count 262 Sodium 139 Potassium 4.0 Chloride 103 Carbon Dioxide 26 Anion Gap 10 BUN 22 Creatinine 1.5 Estimated Creat Clear 40.53 Estimated GFR 48 Glucose 135 H Calcium 9.0 Phosphorus 3.7 Albumin 3.7
[2023-03-24 15:22] VITALS: BP 136/89; PULSE 77; RESP 16; TEMP 37; O2SAT 96
[2023-03-24] MEDS: DAPTOmycin 50 MG/ML inj 500 MG IVP (16:39)
--- NOTE | 2023-03-24 18:09 | PC.NURSE ---
Pt alert and oriented. Pt had?complaints of pain ranging from 0-5. Pt independent in room. Pt up to chair multiple times during shift.? Pt has Tubi grease renderer covering right leg/knee. Pt to have surgery on tomorrow.?
[2023-03-24 20:21] VITALS: BP 130/79; PULSE 84; RESP 18; TEMP 36.6; O2SAT 94
[2023-03-24] MEDS: SODIUM CHLORIDE 0.9 % (FLUSH) 10 ML SYRINGE 5 ML IVF (21:18)
[2023-03-24] MEDS: MELATONIN 3 MG TABLET PO (23:09)
[2023-03-25] VITALS (26 sets, daily range): BP systolic 120–189; BP diastolic 69–115; PULSE 70–82; RESP 14–20; TEMP 36–37.4; O2SAT 93–100
[2023-03-25] MEDS: OXYCODONE 5 MG TABLET PO ×5 (03:58→22:32)
--- NOTE | 2023-03-25 05:56 | PC.NURSE ---
Pt pleasant and cooperative. VSS pain is controlled with 5mg of oxycodone every 4hrs. Pt has been NPO since midnight for surgery today. He is up in room Independantly .
[2023-03-25] MEDS: LACTOBACILLUS ACIDOPHILUS 1 TABLET 2 TAB PO (09:51)
[2023-03-25] MEDS: SODIUM CHLORIDE 0.9 % (FLUSH) 10 ML SYRINGE IVF (10:28)
[2023-03-25] MEDS: LACTATED RINGERS 1000 ML 1,000 ML 100 ML IV ×2 (10:29→12:12)
[2023-03-25] MEDS: MIDAZOLAM HCL 1 MG/ML inj IVP (10:53)
[2023-03-25] MEDS: fentaNYL 100 MCG/2 ML inj IVP (10:53)
--- NOTE | 2023-03-25 10:56 | SUR.PREOP ---
1052 TIME?OUT:? PT/RN/MDA?VERIFICATION?OF?SURGICAL?SITE,?PROCEDURE,?AND?CONSENT OBTAINED?PRIOR?TO?INVASIVE?PROCEDURE. all in agreement
[2023-03-25] MEDS: CEFAZOLIN 2 GM INJ IVP (11:25)
--- NOTE | 2023-03-25 11:56 | P.NB_ITS ---
Nerve Block Nerve Block Time Seen by Provider: 10:57 Date Seen: 03/25/23 Type of block requested by surgeon for post-operative analgesia: adductor canal Side: right Time out performed: Yes Verification of patient name: Yes Verification of date of : Yes Site marking: site marked Name of person performing procedure: Cole Continuous monitoring Was continuous monitoring of O2 sat, B/P, objects conservator, recorded every 15 minutes?: Yes Procedure Checklist: sterile prep, needles and gloves Ultrasound guided. Images saved: Yes Medications given in 5ml increments after negative aspiration: Ropivicaine %: 0.5 mL: 20 Needle gauge: 20 Decadron (mg): 10 Precedex (mcg): 25 Patient tolerated procedure well: Yes Additional comments: Needle noted adjacent to nerve Block Charges Block Charge (with Pro Fee): Femoral Nerve Use of Ultrasound Machine for Block: Yes- US Guidance/pain block
--- NOTE | 2023-03-25 11:56 | W.PM.NB ---
Nerve Block Nerve Block Time Seen by Provider: 10:57 Date Seen: 03/25/23 Type of block requested by surgeon for post-operative analgesia: geniculars Side: right Time out performed: Yes Verification of patient name: Yes Verification of date of : Yes Site marking: site marked Name of person performing procedure: Cole Continuous monitoring Was continuous monitoring of O2 sat, B/P, monitoring analyst, recorded every 15 minutes?: Yes Procedure Checklist: sterile prep, needles and gloves Medications given in 5ml increments after negative aspiration: Ropivicaine %: 0.5 mL: 9 Needle gauge: 25 Patient tolerated procedure well: Yes Block Charges Block Charge (with Pro Fee): Genicular Nerve Block Use of Ultrasound Machine for Block: No
--- NOTE | 2023-03-25 11:56 | W.ANESCHARGE ---
Anesthesia Charges Start Date/Time Anesthesia Start Date: 03/25/23 Anesthesia Start Time: 11:14 Stop Date/Time Anesthesia Stop Date: 03/25/23 Anesthesia Stop Time: 15:18 Summary Extremes of Age - Over 70 or under 1: MDA
--- NOTE | 2023-03-25 11:58 | P.IMPN_ITS ---
Progress Note: A&P Assessment and plan (1) Septic joint of right knee joint: Problem details: 03/25/2023: Synovial fluid cultures and tissue cultures grew pansensitive methicillin sensitive Staphylococcus aureus, currently on daptomycin IV - history of adverse reaction from vancomycin in the past. Discussed with Infectious Disease specialist on 03/23/2023, who recommends ongoing IV daptomycin once daily until such time as the knee hardware can be removed, then after the hardware is removed and replaced with antibiotic impregnated spacer, continue with IV daptomycin for 6 additional weeks, and if appropriate replace the hardware according to Orthopedic surgery protocol, often 90 days after hardware initially removed. Status: Acute Assessment and Plan: Ready for the OR today to removed affected hardware and replace with antibiotic impregnated spacer (2) Hx of total knee arthroplasty: Problem details: Right TKA April 2022, left TKA November 2021. Status: Acute (3) History of revision of total knee arthroplasty: Problem details: Due to septic right TKA 3 weeks postop, reported poly exchange and IV vancomycin Status: Acute (4) Type 2 diabetes mellitus: Problem details: Not insulin-dependent. Restarted glipizide. Continue with sliding scale insulin for now. Continue to hold metformin. Blood sugars quite variable still ranging from 100-200. Status: Acute (5) Bacteremia: Problem details: Pansensitive MSSA bacteremia. Continue with daptomycin. Status: Acute (6) Acute kidney injury superimposed on chronic kidney disease: Problem details: Creatinine 1.[address] down to 1.5 on 03/24/2023. Status: Acute (7) Status post arthroscopy of right knee: Problem details: POD 4 arthroscopic lavage and extensive synovectomy (03/21/2023) Status: Acute Plan 1. Reviewed impression with patient and his son. Answered their questions. 2. Continue with other supportive efforts. 3. Proceed to the OR as planned today. 4. PICC line in place and functioning. 5. IV daptomycin 500 mg once daily for 6 weeks be on today if they were able to achieve the desired Sixto were removal and implantation of antibiotic impregnated spacer. 6. Follow with Orthopedic surgery as planned. 7. Patient and son are in agreement with above stated plans and recommendations. Time Spent With Patient Total time spent: 30 minute Subjective Time Seen by Provider: 09:00 Date Seen: 03/25/23 Interval history: Hospital day 5. Postop day 4, status post right knee scope irrigation. 77-year-old man status post right total knee arthroplasty March 2022 who 3 we eks subsequently developed a staph infection in that knee, underwent a revision and was treated with vancomycin IV for a total of 6 weeks. Presented here with 1-2 week history of increasing right knee pain redness swelling. In our emergency department was found to have a septic right knee. Synovial fluid cultures from when he 1st presented to the emergency department and subsequently in the operating room grew out pansensitive MSSA. Tissue culture obtained in the operating room also grew out pansensitive MSSA. One of 2 blood cultures obtained at time of admission in the emergency department grew out pansensitive MSSA. Currently on daptomycin 500 mg IV once daily - previously on ceftriaxone 1 g IV daily as well, which was stopped 03/23/2023. Notices increased pain and tenderness in his right knee today. Less able to tolerate weight-bearing on the affected right lower extremity. Denies any fevers, rigors, diaphoresis. Eating and drinking without nausea, vomiting, heartburn, dyspepsia, dysphagia, odynophagia. Denies abdominal pain. Denies diarrhea or constipation. Tolerating oral lactobacillus acidophilus probiotic. Exam Narrative: Exam Narrative: I examined the patient in his hospital room. Appears comfortable and in no acute distress. Vision and hearing are grossly normal. Alert and oriented to self, place, time, situation. Friendly, articulate, cooperative. Mood and affect are congruent. Lungs are clear to auscultation. Heart tones with regular rhythm, normal S1-S2. Abdomen with active bowel sounds, soft, nontender. Gradually decreasing erythema of affected right lower extremity. More synovial swelling today than yesterday. Less able to see skin creases about the knee. Still able to stand and bear weight on affected right side. No focal motor neurologic deficits. Const: Vital Signs, click to edit/add: Vital Signs - 24 hr 03/24/23 15:22 03/24/23 20:21 03/25/23 04:00 Temperature 98.6 F 98 F 98 F Pulse Rate [Dorsal is Pedis] 84 Pulse Rate [Pulse Oximeter] 77 74 Pulse Rate [Right Dorsalis Pedis] Respiratory Rate 16 18 18 Blood Pressure [Le ft Arm] 136/89 130/79 162/97 H Pulse Oximetry 96 94 95 Oxygen Delivery Me thod Room Air Room Air Room Air Oxygen Flow Rate 09/28/23 08:36 03/25/23 10:27 03/25/23 10:52 Temperature 97.8 F 99.3 F Pulse Rate [Dorsal is Pedis] Pulse Rate [Pulse Oximeter] 77 80 80 Pulse Rate [Right Dorsalis Pedis] 82 Respiratory Rate 18 16 Blood Pressure [Le ft Arm] 141/76 H 173/89 H 154/82 H Pulse Oximetry 93 96 Oxygen Delivery Me thod Room Air Room Air Nasal Cannula Oxygen Flow Rate 2 03/25/23 10:57 03/25/23 11:05 Temperature Pulse Rate [Dorsal is Pedis] Pulse Rate [Pulse Oximeter] 75 Pulse Rate [Right Dorsalis Pedis] Respiratory Rate 16 16 Blood Pressure [Le ft Arm] 151/81 H 120/69 Pulse Oximetry 96 96 Oxygen Delivery Me thod Nasal Cannula Nasal Cannula Oxygen Flow Rate 2 2 Documenting provider has reviewed patient's vital signs: yes ECG Attestation: I personally reviewed and interpreted this ECG as follows: Interpretation: Normal sinus rhythm without evidence of ischemia or infarction.
[2023-03-25] MEDS: TOBRAMYCIN SULFATE 1.2 GM 14.4 GM TOPICAL (13:34)
--- NOTE | 2023-03-25 14:16 | CRLHL7_ITS ---
For Patients: As a result of the Cures Act, medical imaging exams and procedure reports are released immediately into your electronic medical record. You may view this report before your referring provider. If you have questions, please contact your health care provider. Indication: POST OP RESECTION ARTHROPLASTY Technique: Two views right knee Comparison: 03/20/2023 Findings/Impression: Interval resection of the arthroplasty hardware noted with placement of antibiotic coated cement. Dictated by Moises Mejia MD @ 03/26/2023 9:44:24 AM (Electronically Signed)
--- NOTE | 2023-03-25 14:20 | PM.ORPRC ---
Procedure Note Date of procedure: 03/25/23 Procedure: PREOPERATIVE DIAGNOSIS: Septic right total knee arthroplasty POSTOPERATIVE DIAGNOSIS: Septic right total knee arthroplasty NAME OF OPERATION: Resection arthroplasty, placement of articulated antibiotic spacer SURGEON: Miguel Tanner MD LICENSING ENGINEER: Natalie Adler PA-C, Myles Ko PA-C ANESTHESIA: Spinal ESTIMATED BLOOD LOSS: 50 mL COMPLICATIONS: None SPECIMENS: Sent for routine culture DRAINS: None PREOPERATIVE ANTIBIOTICS: Ancef 2 grams, tobramycin 2.4 g per batch of cement IMPLANTS: 1. Large femoral cement spacer 2. 12.5 mm large tibial cement spacer INDICATIONS: The patient is a 77-year-old previously underwent right total knee arthroplasty. He had an acute postoperative infection treated with open irrigation, debridement and poly exchange. He has done well since then up until this weekend. He developed a swollen and painful knee. Cultures grew out MSSA. Resection arthroplasty was staged reimplantation was recommended. The risks, benefits and expected outcomes were discussed in detail. These included but were not limited to: Infection, bleeding, injury to blood vessel or nerve, venous thromboembolism. All questions were answered to their satisfaction. Use of an photo studio assistant was necessary throughout the case for patient positioning and safety, soft tissue retraction, and closure. PROCEDURE: Spinal anesthesia was administered. The patient was placed supine on the operating table. The photo studio assistant made sure the patient was positioned appropriately. The lower extremity was prepped and draped in the usual sterile fashion. The limb was exsanguinated with the Deshawn bandage. The pneumatic tourniquet was inflated to 300 mmHg. The previously placed standard anterior incision was utilized. Subcutaneous dissection was sharply taken to the extensor mechanism. There was a marked amount of subcutaneous scar. Full-thickness medial and lateral flaps were elevated. The photo studio assistant retracted the soft tissues and protected them throughout the case. A standard medial parapatellar approach was made. The patella was everted. There was a sinus tract from the joint, through the medial retinaculum, just medial to patellar tendon. The infrapatellar fat pad and scar were debrided. The PCL was sharply d?brided. Synovium from lateral gutter and suprapatellar pouch was sent for routine culture and pathology. The oscillating saw was used to free up the femoral component on all sides. We then tapped it off with tamp. There was minimal bone loss over the posterior aspect of the medial condyle, otherwise insignificant bone loss. The same technique was used on the tibial side. The oscillating saw was used under the tray. Likewise the flexible osteotomes were used. The tibial extractor was placed under the tray and the tray was tapped out. There is a minimal amount of metaphyseal bone loss centrally. Cortices all remain intact. Finally, the oscillating saw was used to resect the patellar component. The drill was used to drill out the polyethylene for the lugs. We then drilled out the cement mantle in the lugs and used a curette to debride the cement. Osteotomes were used to break up the cement on both the femoral and tibial sides. It was aggressively removed with the curette and rongeur. Several Ethibond sutures in the extensor mechanism were removed. All devitalized or questionable soft tissues were aggressively debrided. The wound was irrigated with 6 L of normal saline via pulse lavage. Both components were measured as large. We hand mixed cement and added 2.4 g of tobramycin per batch. We used 3 batches to fabricate a large femoral articulated spacer. The mold was filled with doughy cement, then was pressed onto the distal femur. Excess cement was removed, the cement was allowed to harden. We removed the mold. Attention was then turned to the tibial spacer. We measured our flexion and extension gap at 12.5 mm. We marked the mold at this level and filled it with 3 batches of cement with 2.4 g of tobramycin per batch. We made a small central keel. The cement was allowed to harden. We then removed from the mold and placed it in the knee. The knee is stable in both flexion and extension. The tourniquet was released. A 3 minute dilute Betadine soak was done. The wound was irrigated with normal saline. The extensor mechanism was closed with a 1 PDS suture. Subcutaneous tissues were closed with a Stratafix. Skin was closed in a subcuticular fashion with Stratafix. Glue was used to seal the skin. The photo studio assistant placed a dry dressing, GIGI stocking, and Polar Care. Sponge and needle counts were correct x2. The patient tolerated the procedure well. There were no apparent complications. They were carefully transferred to the hospital bed and taken to the postanesthesia care unit in satisfactory condition. PLAN: The patient will be mobilized with physical therapy. Aspirin will be used for DVT prophylaxis. They will be discharged to home once medically appropriate. We are planning 6 weeks of IV antibiotics. We will then have him off antibiotics for 2 weeks and see me in the office at that point. We will aspirate the knee and send fluid for cultures. Additionally, we will obtain a CBC with diff, sed rate and CRP. If at that time the labs are reassuring, we will schedule revision right total knee arthroplasty.
[2023-03-25] MEDS: HYDROmorphone 0.5 mg/0.5 ml inj IVP ×2 (15:17→16:19)
--- NOTE | 2023-03-25 15:18 | W.ANESCHARGE ---
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
[2023-03-25] MEDS: fentaNYL 100 MCG/2 ML inj 50 MCG IVP ×2 (15:20→15:30)
[2023-03-25] MEDS: ACETAMINOPHEN 500 MG TABLET 1000 MG PO ×2 (16:51→23:30)
--- NOTE | 2023-03-25 17:01 | W.PM.CROSSCO ---
Subjective Subjective Date Seen: 03/25/23 Principal diagnosis: Septic right TKA; cellulitis right leg Interval history: Patient is seen postoperatively. Complains of pain not being controlled. Otherwise denies nausea. Has started clear liquids without difficulty. Remains mildly hypertensive consistent with past several days. Oxygen saturation appropriate with forehead sensor. Objective Objective Data Details: On limited exam, patient is awake alert and oriented. Pleasant. Frustrated with current pain level. Right lower extremity with postoperative dressing in place, dry. Neurovascularly intact. Assessment and Plan Assessment and plan (1) Status post arthroscopy of right knee: Problem comment: POD 4 arthroscopic lavage and extensive synovectomy (03/21/2023) Status: Acute Plan Pain management to include scheduled Tylenol, lidocaine patch to right lower extremity no where near surgical incision, p.r.n. Dilaudid, p.r.n. fentanyl, p.r.n. oxycodone, p.r.n. Vistaril. Monitor for sedation. Continuous pulse oximetry. Nonweightbearing right lower extremity pending further instruction from Orthopedic surgery/PT.
[2023-03-25] MEDS: LIDOCAINE 5% PATCH 1 PATCH TRANSDERMA (17:10)
[2023-03-25] MEDS: hydrOXYzine pamoate 25 MG CAPSULE PO (17:10)
[2023-03-25] MEDS: SENNOSIDES 1 TAB TABLET 2 TAB PO (20:29)
[2023-03-25] MEDS: ASPIRIN 81 MG TABLET EC PO (20:30)
[2023-03-25] MEDS: DAPTOmycin 50 MG/ML inj 500 MG IVP (20:35)
[2023-03-26] MEDS: OXYCODONE 5 MG TABLET PO ×4 (02:31→14:16)
[2023-03-26 03:04] VITALS: BP 164/93; PULSE 68; RESP 16; TEMP 36.7; O2SAT 94
[2023-03-26] MEDS: ACETAMINOPHEN 500 MG TABLET 1000 MG PO ×2 (05:39→12:14)
[2023-03-26 06:59] LABS: Basophils Percent Auto 0.1 % (0.0-3.0); Hematocrit 33.6 % (37.0-53.0); Hemoglobin* 11.3 gm/dL (13.5-17.5); Lymphocytes Percent Auto 8.3 % (20-44); Mean Corpuscular HGB Conc 34 gm/dL (32-36); Mean Corpuscular Hemoglobin 30 pg (26-34); Mean Corpuscular Volume 89 fL (80-100); Monocytes Percent Auto 6.2 % (0.0-11.0); Neutrophils Percent Auto 83.4 % (42.0-72.0); Platelet Count* 330 K/uL (140-440); RDW Coefficient of Variation % 12.9 % (11.5-15.5); Red Blood Count 3.77 m/uL (4.30-5.90); White Blood Count* 14.67 K/uL (4.50-11.00)
[2023-03-26 07:00] VITALS: BP 167/117; PULSE 70; RESP 16; TEMP 36.7; O2SAT 98
[2023-03-26 07:06] LABS: Slide Review Reflex No
[2023-03-26 07:12] LABS: Prothrombin Time 14.8 Seconds
[2023-03-26 07:16] LABS: Chloride* 99 mmol/L (96-114)
[2023-03-26 07:17] LABS: Potassium* 4.5 mmol/L (3.6-5.1); Sodium* 134 mmol/L (135-149)
[2023-03-26 07:19] LABS: Creatinine* 1.3 mg/dL (0.5-1.5); Est. Creatinine Clearance* 46.77; Estimated Glomerular Filt Rate 57 ml/min
[2023-03-26 07:20] LABS: Anion Gap 11 mEq/L (7-15); Blood Urea Nitrogen* 31 mg/dL (7-30); Calcium* 9.1 mg/dL (8.4-10.6); Carbon Dioxide* 24 mmol/L (20-32); Glucose* 262 mg/dL (60-115)
--- NOTE | 2023-03-26 07:48 | PC.NURSE ---
End of shift: A&O, pleasant and cooperative. Pt complains of 2-4/10 right knee pain. See eMAR for intervention. Pt was on bedrest overnight. Able to shift wt independently in bed. Using urinal in bed. uses call light appropriately.
[2023-03-26] MEDS: LIDOCAINE 5% PATCH 1 PATCH TRANSDERMA (08:18)
[2023-03-26] MEDS: ASPIRIN 81 MG TABLET EC PO (08:18)
[2023-03-26] MEDS: SENNOSIDES 1 TAB TABLET 2 TAB PO (08:18)
[2023-03-26 11:00] VITALS: BP 147/75; PULSE 70; RESP 16; TEMP 36.7; O2SAT 98
--- NOTE | 2023-03-26 11:02 | NUTR.NU ---
RDN with skin risk wire rigger trigger. ?Per freelance art director, patient has been consuming 100% of meals. Skin risk assessment score = 19, and ?no? for nutrition risk. ?Pt denies weight loss. Weight stable since admission. No new weight since admission. BMI 35.5 kg/m2. No nutritional concerns. No interventions needed at this time. RDN will continue to follow per dept protocol.
--- NOTE | 2023-03-26 11:50 | P.ORPN_ITS ---
Subjective Subjective Time Seen by Provider: 07:10 Date Seen: 03/26/23 Principal diagnosis: Septic right TKA; cellulitis right leg, status post removal of total knee Interval history: Eddie is comfortable in his bed this morning. His son is with him. We discussed his surgical procedure and I showed him photos. Otherwise denies nausea. He denies nausea or vomiting. If physical therapy goes well today he can discharge with his son later today. Ortho Exam Narrative Exam Narrative: Alert and oriented x3. Patient is in no acute distress. Converses without labored breathing. Hearing is grossly intact. He has not ambulated yet since his surgery yesterday. Examination of the right knee shows the dressing is intact. There is no erythema or warmth or sign of infection. Mild effusion. Mild soft tissue edema. Bilateral calves are soft and nontender. CMS is intact right lower extremity. Quad strength 4/5. No foot drop. Pedal pulses DP and PT are normal at 2+. Const Vital Signs, click to edit/add: Vital Signs - 24 hr 03/25/23 15:13 03/25/23 15:18 03/25/23 15:23 Temperature 98.2 F Pulse Rate 70 72 75 Pulse Rate [Pulse Oximeter] Respiratory Rate 14 16 16 Blood Pressure 133/115 H 166/85 H 178/95 H Blood Pressure [Left Arm] Pulse Oximetry 96 94 96 Oxygen Delivery Method Room Air Room Air Room Air 03/25/23 15:28 03/25/23 15:33 03/25/23 15:38 Temperature Pulse Rate 72 74 74 Pulse Rate [Pulse Oximeter] Respiratory Rate 14 16 18 Blood Pressure 171/90 H 178/103 H 171/95 H Blood Pressure [Left Arm] Pulse Oximetry 95 96 95 Oxygen Delivery Method Room Air Room Air Room Air 03/25/23 15:45 03/25/23 15:50 03/25/23 16:00 Temperature Pulse Rate 74 74 Pulse Rate [Pulse Oximeter] Respiratory Rate 18 18 Blood Pressure 175/92 H 170/84 H Blood Pressure [Left Arm] Pulse Oximetry 95 95 95 Oxygen Delivery Method Room Air Room Air 03/25/23 16:00 03/25/23 16:15 03/25/23 16:30 Temperature 96.8 F L Pulse Rate 72 Pulse Rate [Pulse Oximeter] 74 75 Respiratory Rate 18 18 18 Blood Pressure Blood Pressure [Left Arm] 154/89 H 164/70 H 151/79 H Pulse Oximetry 93 96 Oxygen Delivery Method Room Air Room Air Room Air 03/25/23 16:45 03/25/23 17:00 03/25/23 17:30 Temperature 97.1 F L 97.5 F L Pulse Rate Pulse Rate [Pulse Oximeter] 73 70 74 Respiratory Rate 20 20 18 Blood Pressure Blood Pressure [Left Arm] 172/100 H 176/96 H 169/89 H Pulse Oximetry 96 95 95 Oxygen Delivery Method Room Air Room Air Room Air 03/25/23 18:00 03/25/23 19:00 03/25/23 20:00 Temperature 98.1 F 98.1 F Pulse Rate Pulse Rate [Pulse Oximeter] 73 72 75 Respiratory Rate 18 16 16 Blood Pressure Blood Pressure [Left Arm] 141/80 H 172/82 H 189/86 H Pulse Oximetry 94 97 96 Oxygen Delivery Method Room Air Room Air Room Air 03/25/23 21:00 03/25/23 22:00 03/25/23 23:00 Temperature 98.1 F 97.7 F Pulse Rate Pulse Rate [Pulse Oximeter] 78 77 71 Respiratory Rate 16 16 18 Blood Pressure Blood Pressure [Left Arm] 150/91 H 144/80 H 159/87 H Pulse Oximetry 96 100 96 Oxygen Delivery Method Room Air Room Air Room Air 03/25/23 23:00 03/26/23 03:04 03/26/23 07:00 Temperature 98.0 F Pulse Rate Pulse Rate [Pulse Oximeter] 68 70 Respiratory Rate 18 16 16 Blood Pressure Blood Pressure [Left Arm] 164/93 H Pulse Oximetry 96 94 Oxygen Delivery Method Room Air Room Air 03/26/23 07:00 03/26/23 07:00 Temperature 98.0 F Pulse Rate Pulse Rate [Pulse Oximeter] 70 Respiratory Rate 16 16 Blood Pressure Blood Pressure [Left Arm] 167/117 H Pulse Oximetry 98 98 Oxygen Delivery Method Room Air Room Air Assessment and Plan Assessment and plan (1) Status post arthroscopy of right knee: Problem details: POD 4 arthroscopic lavage and extensive synovectomy (03/21/2023) Status: Acute (2) Aftercare following removal of joint prosthesis: Problem details: Date of surgery 03/25/2023 Status: Acute Assessment and Plan: Plan for discharge is today to his son's home if he meets discharge criteria, if he passes PT. He can weight bear as tolerated right lower extremity. DVT prophylaxis includes aspirin 81 mg twice daily x1 month, Claude stockings x1 month may remove for 1 hr per day, frequent ambulation Remove dressing in 1 week. Observe wound and phone Orthopedics with any questions or concerns Return to clinic in 1 week for a wound check Return to clinic in 8 weeks with surgeon Minimize narcotic use. Wean off and discontinue soon as possible. Oxycodone is sent to his pharmacy. Also Tylenol, senna, aspirin Activities as tolerated. No strenuous activity. Outpatient physical therapy must be scheduled in [facility]. Continue IV daptomycin 500 mg every 24 hours for 6 weeks. His 1st week will be at [facility], remaining weeks will be at [facility] in [facility]. Ice and elevate the operative extremity. No restriction on ice. He has been diligent with his diabetes control. I have asked him to eliminate all soda/pop.
[2023-03-26] MEDS: DAPTOmycin 50 MG/ML inj 500 MG IVP (12:18)
--- NOTE | 2023-03-26 15:24 | PM.DS1 ---
DS: Providers Provider Time Seen by Provider: 09:00 Date Seen: 03/26/23 Date of admission: 03/21/23 00:37 Primary care physician: Not a Local Provider Admitting Clinician: Sukh Harper MD Consults: 03/21/23 01:20 Consult to Physical Therapy [CONS] Routine Comment: Reason(s) for PT Consult:: Evaluate and Treat Any Restrictions?:: See Comment Comment: Please see postop with ortho restrictions 03/21/23 01:24 Consult to Occupational Therapy [CONS] Routine Comment: Reason(s) for OT Consult:: Evaluate and Treat Any Restrictions?:: See Comment Comment: Please see postop with postop restrictions per ortho. 03/21/23 02:02 Consult to Physical Therapy [CONS] Routine Comment: Reason(s) for PT Consult:: Evaluate and Treat Any Restrictions?:: No Restrictions 03/25/23 16:03 Consult to Occupational Therapy [CONS] Routine Comment: Reason(s) for OT Consult:: ADLs Prior to Discharge Any Restrictions?:: See Comment Comment: See nursing activity order for any restrictions. Consult to Physical Therapy [CONS] Routine Comment: Ambulate in the fay today. Reason(s) for PT Consult:: TKA TX Protocol POD#0 Any Restrictions?:: See Comment Comment: See nursing activity order for any restrictions. Consult to Physician [CONS] Routine Comment: Consulting Provider: Hospitalists Has provider been notified: No Consult to Bacteriology Professor [CONS] Routine Comment: Reason for Consult:: Discharge Planning Needs Attending Physician on discharge: Anand Hough MD Date of Discharge: 03/26/23 DS: Diagnosis Discharge Diagnosis (1) Septic joint of right knee joint: Status: Acute Problem details: 03/25/2023: Synovial fluid cultures and tissue cultures grew pansensitive methicillin sensitive Staphylococcus aureus, currently on daptomycin IV - history of adverse reaction from vancomycin in the past. Discussed with Infectious Disease specialist on 03/23/2023, who recommends ongoing IV daptomycin once daily until such time as the knee hardware can be removed, then after the hardware is removed and replaced with antibiotic impregnated spacer, continue with IV daptomycin for 6 additional weeks, and if appropriate replace the hardware according to Orthopedic surgery protocol, often 90 days after hardware initially removed. (2) Hx of total knee arthroplasty: Status: Acute Problem details: Right TKA April 2022, left TKA November 2021. (3) History of revision of total knee arthroplasty: Status: Acute Problem details: Due to septic right TKA 3 weeks postop, reported poly exchange and IV vancomycin (4) Bacteremia: Status: Acute Problem details: Pansensitive MSSA bacteremia. Continue with daptomycin. (5) Status post arthroscopy of right knee: Status: Acute Problem details: POD 4 arthroscopic lavage and extensive synovectomy (03/21/2023) (6) Aftercare following removal of joint prosthesis: Status: Acute Problem details: Date of surgery 03/25/2023 (7) Acute kidney injury superimposed on chronic kidney disease: Status: Acute Problem details: Creatinine 1.[address] down to 1.5 on 03/24/2023. (8) Type 2 diabetes mellitus: Status: Acute Problem details: Not insulin-dependent. Restarted glipizide. Continue with sliding scale insulin for now. Continue to hold metformin. Blood sugars quite variable still ranging from 100-200. DS: Summary Hospital Course Hospital Course: History of present illness: Eddie Bearden is a 77 year old male who is seen as an interactive telehealth visit. Winston has a significant past medical history of previous right total knee arthroplasty in March of last year. He states that approximately 3 weeks after his surgery he was diagnosed with septic arthritis and did undergo what sounds to be 6 weeks of IV antibiotics which I believe was vancomycin. Winston gives a history that approximately 2 weeks ago he fell onto his right knee with an acute abrasion. He states that approximately 1-1/2 weeks ago he started having some pain in that right knee and swelling. He states that 2 days ago he started noticing some erythema and swelling around the knee and leg and today he was unable to even stand on his right leg/knee due to the severe pain that he was experiencing. He states the pain is significantly severe with any kind of bending of his knee. With his inability to walk or stand, he presented to the emergency room. In the emergency room he was evaluated and an aspiration of that knee joint did show kaya purulent material consistent with acute septic arthritis with surrounding erythema consistent with cellulitis. The on-call orthopedics doctor was contacted and plans for possible surgical intervention including washout is planned for tomorrow morning. They have asked us to admit Eddie for preoperative evaluation and treatment of his acute septic arthritis. At the time I am seeing Eddie, he states he has had a fever started today and it was measured at 101 in the emergency room. He states that he is moving and drove from [place] where he lives and when he got out of the car he was unable to stand on his leg due to the severe 9 out of 10 pain. He states that with treatment in the emergency room and pain medications given he now describes the pain is approximately 1-2 out of 10. He denies any recent chest pain or shortness of breath with activity. He has not had any history of coronary artery disease. He does have diabetes mellitus type 2 but is not on insulin and is maintained on metformin. He otherwise denies any other acute complaints or problems at the time I am seeing him. Given patient's prior history adverse reaction from vancomycin, he is started on IV daptomycin and IV ceftriaxone empirically until such time as we obtain results of all cultures. In time all cultures grew out the same organism, pansensitive methicillin sensitive Staphylococcus aureus. One of the blood cultures also grew out the same organism. In time we stop the ceftriaxone and continue with the daptomycin. Given that we anticipate he will need to continue on the daptomycin for total of 6 weeks after his right knee hardware is removed, we do place a PICC line while in hospital. He undergoes a right knee scope irrigation and bursectomy day following admission to the hospital. In time a plan is formulated and then executed such that patient has all of his hardware removed and a flexible antibiotic impregnated spacer is placed in the knee per Orthopedic surgery, Dr. Tanner, on 03/25/2023. He tolerated this procedure well. Blood sugars adequately managed throughout his hospital stay. Blood pressure is adequately managed throughout his hospital stay. Serum creatinine on presentation elevated at 1.4. On date of discharge is down to 1.3. Status at Discharge Functional status at discharge: uses cane/walker Overall status at discharge: patient is progressing back to baseline Time Spent with Patient Time attestation: Total time spent providing and/or coordinating discharge services: Time spent: Greater than 30 minutes Exam Narrative: Exam Narrative: I examined the patient in his hospital room. Appears comfortable and in no acute distress. Vision and hearing are grossly normal. Alert and oriented to self, place, time, situation. Friendly, articulate, cooperative. Mood and affect are congruent. Lungs are clear to auscultation. Heart tones with regular rhythm, normal S1-S2. Abdomen with active bowel sounds, soft, nontender. Postop knee appears stable. Able to carry out activity with physical therapist. Still able to stand and bear weight on affected right side. No focal motor neurologic deficits. Const: Vital Signs, click to edit/add: Vital Signs - 24 hr 03/25/23 15:28 03/25/23 15:33 03/25/23 15:38 Temperature Pulse Rate 72 74 74 Pulse Rate [Pulse Oximeter] Pulse Rate [Right Dorsalis Pedis] Respiratory Rate 14 16 18 Blood Pressure 171/90 H 178/103 H 171/95 H Blood Pressure [Le ft Arm] Pulse Oximetry 95 96 95 Oxygen Delivery In thod Room Air Room Air Room Air 03/25/23 15:45 03/25/23 15:50 03/25/23 16:00 Temperature Pulse Rate 74 74 Pulse Rate [Pulse Oximeter] Pulse Rate [Right Dorsalis Pedis] Respiratory Rate 18 18 Blood Pressure 175/92 H 170/84 H Blood Pressure [Le ft Arm] Pulse Oximetry 95 95 95 [facility] 03/25/23 16:00 03/25/23 16:15 03/25/23 16:30 Temperature 96.8 F L Pulse Rate 72 Pulse Rate [Pulse Oximeter] 74 75 Pulse Rate [Right Dorsalis Pedis] Respiratory Rate 18 18 18 Blood Pressure Blood Pressure [Le ft Arm] 154/89 H 164/70 H 151/79 H Pulse Oximetry 93 96 [facility] Room Air Room Air 03/25/23 16:45 03/25/23 17:00 03/25/23 17:30 Temperature 97.1 F L 97.5 F L Pulse Rate Pulse Rate [Pulse Oximeter] 73 70 74 Pulse Rate [Right Dorsalis Pedis] Respiratory Rate 20 20 18 Blood Pressure Blood Pressure [Le ft Arm] 172/100 H 176/96 H 169/89 H Pulse Oximetry 96 95 95 [facility] Room Air Room Air 03/25/23 18:00 03/25/23 19:00 03/25/23 20:00 Temperature 98.1 F 98.1 F Pulse Rate Pulse Rate [Pulse Oximeter] 73 72 75 Pulse Rate [Right Dorsalis Pedis] Respiratory Rate 18 16 16 Blood Pressure Blood Pressure [Le ft Arm] 141/80 H 172/82 H 189/86 H Pulse Oximetry 94 97 96 Oxygen Delivery Me thod Room Air Room Air Room Air 03/25/23 21:00 03/25/23 22:00 03/25/23 23:00 Temperature 98.1 F 97.7 F Pulse Rate Pulse Rate [Pulse Oximeter] 78 77 71 Pulse Rate [Right Dorsalis Pedis] Respiratory Rate 16 16 18 Blood Pressure Blood Pressure [Le ft Arm] 150/91 H 144/80 H 159/87 H Pulse Oximetry 96 100 96 Oxygen Delivery Me thod Room Air Room Air Room Air 03/25/23 23:00 03/26/23 03:04 03/26/23 07:00 Temperature 98.0 F Pulse Rate Pulse Rate [Pulse Oximeter] 68 70 Pulse Rate [Right Dorsalis Pedis] Respiratory Rate 18 16 16 Blood Pressure Blood Pressure [Le ft Arm] 164/93 H Pulse Oximetry 96 94 Oxygen Delivery In thod Room Air Room Air 03/26/23 07:00 03/26/23 07:00 03/26/23 11:00 Temperature 98.0 F 98.0 F Pulse Rate Pulse Rate [Pulse Oximeter] 70 Pulse Rate [Right Dorsalis Pedis] 70 Respiratory Rate 16 16 16 Blood Pressure Blood Pressure [Le ft Arm] 167/117 H 147/75 H Pulse Oximetry 98 98 98 Oxygen Delivery Me thod Room Air Room Air Room Air Documenting provider has reviewed patient's vital signs: yes DS: Data Data Completed and Pending Labs on day of discharge: Labs from last 24 hours 03/26/23 05:50 WBC 14.67 H RBC 3.77 L Hgb 11.3 L Hct 33.6 L MCV 89 MCH 30 MCHC 34 RDW Coeff of Geovanni 12.9 Plt Count 330 Neut % (Auto) 83.4 H Lymph % (Auto) 8.3 L [place] % (Auto) 6.2 Eos % (Auto) 0.0 Baso % (Auto) 0.1 Neut # (Auto) 12.20 H Lymph # (Auto) 1.20 [place] # (Auto) 0.90 Eos # (Auto) 0.00 Baso # (Auto) 0.00 Abs Immat Gran (auto) 0.30 Imm/Tot Granulo (auto) 2.0 INR 1.10 Sodium 134 L Potassium 4.5 Chloride 99 Carbon Dioxide 24 Anion Gap 11 BUN 31 H Creatinine 1.3 Estimated Creat Clear 46.77 Estimated GFR 57 Glucose 262 H Calcium 9.1 Preliminary micro results at discharge 03/25/23 12:30 Aerobic Culture - Preliminary Knee,Right Anaerobic Culture - Preliminary Culture in Progress 03/20/23 20:33 Blood Culture - Preliminary Blood Staphylococcus aureus 03/20/23 20:27 Blood Culture - Preliminary Blood Staphylococcus aureus Imaging X-ray right knee: Attestation: I have reviewed the pertinent imaging results. Radiologist's impression: On admission FINDINGS: There is a right TKA. Components appear well seated. Soft tissue swelling around the knee and knee joint effusion. No acute fracture or dislocation. No specific evidence for gout. On 03/25/2023, status post removal of knee hardware and replacement with knee spacer Findings/Impression: Interval resection of the arthroplasty hardware noted with placement of antibiotic coated cement. Discharge Plan Discharge Disposition: Home, Self-Care Date of Admission: 03/21/23 00:37 Attending Provider on Discharge: Aannd Hough Consulting Providers: Asia Moya; ,[place]; Zachery Ott; Myron Singh; Ruby Andrea; Lacey Dc; Kait Vela; Anand Hough; Babita Coy; Myles Jaquez; Alexandru Ann; Jenni Dumas; Kofi Melchor; Karlie Bonilla; Wei Guevara; Chuck Cooper; Rd Ferrell; Shaheen Cobb; Sukh Harper; Diego Curiel; Miguel Tanner Primary Care Provider: Provider,Not a Local Condition: Stable Anticipated Discharge Date/Time: 03/26/23 15:30 Discharge Medications: New sennosides [Senna Lax] 8.6 mg Tablet 17.2 mg PO BID PRN (Reason: constipation) Qty: 100 0RF aspirin [Aspirin Childrens] 81 mg tablet,chewable 81 mg PO BID 30 Days Qty: 60 0RF acetaminophen 500 mg capsule 500 - 1,000 mg PO Q6H MDD 4000mg per day PRN (Reason: pain) Qty: 100 0RF oxycodone 5 mg Tablet 2.5 - 5 mg PO Q4-6H MDD 6 tabs per day PRN (Reason: Pain) Qty: 42 0RF Rx Instructions: Minimize. Discontinue as soon as possible daptomycin 500 mg Recon Soln 500 mg IV push (test dose) Q24H 42 Days Qty: 1 0RF Lactobacillus acidophilus 0.5 mg (100 million cell) Tablet 2 mg PO TIDWM 90 Days Qty: 360 0RF Rx Instructions: May substitute with another probiotic, such as Align probiotic or other brand, adhering to product label for administration. Continued irbesartan 75 mg tablet 75 mg PO DAILY propranolol 120 mg capsule,extended release 24 hr 120 mg PO DAILY (DME) FreeStyle Nadira 2 Sensor Kit MISCELLANEOUS DIRECTED glipizide 10 mg tablet 5 mg PO HS PRN Rx Instructions: IF BG HIGH metformin 1,000 mg tablet 500 - 1,000 mg PO BID Rx Instructions: 1000MG IN AM, 500MG IN PM Probiotic 10 billion cell capsule 20,000 mmu cells PO DAILY Eylea 2 mg/0.05 mL solution 2 mg intravitreal Q4W Discontinued furosemide 20 mg tablet 20 mg PO DAILY PRN (Reason: swelling) Discharge Orders: Discharge Order (Routine); Ordered 03/26/23 Ordered By: Anand Hough Patient Education: Acetaminophen (By mouth), Aspirin (By mouth), Oxycodone, Slow Release (By mouth), Daptomycin (By injection), Probiotic (By mouth), Senna (By mouth) (Sen, Senna-lax), How to Choose and Use a Walker (GEN), Operative Knee Arthroscopy (DC), Revision Total Joint Arthroplasty (DC) Additional Instructions: 1. Daptomycin 500 mg IV once daily, initially at [facility] infusion center for 1 week and then continue infusions in [place], [place], at the [facility], for a total of 6 weeks - last infusion day is on , 06 May 2023. 2. Once weekly CBC and Basic Metabolic Panel while on daptomycin IV therapy. 3. PICC care, per standard protocol. 4. Follow-up with your primary client care manager in 1-2 weeks. 5. Follow-up with orthopedic surgery as directed by them, and as needed. Activity Level: Activity as Tolerated Activity Detail: Keep dressing on for 1 week. Dressing is waterproof. May shower. Surgical glue covers the wound. Attend outpatient physical therapy if scheduled. Ice and elevate operative extremity without restriction. Wear compression stockings for 1 month post surgery. May remove for 1 hour per day. Ambulate every hour throughout the day. If you drive, Do not drive while taking narcotic pain medication. Do not drink alcohol while taking narcotic pain medication. May drive when safe to do so and have full function of the extremities, this will take 6 weeks or more. Notify Orthopedics with any questions or concerns. ([phone]) Discharge Diet: Diabetic Diet Detail: No pop or soda Follow Up Appointments: Provider,Not a Local [Primary Care Provider] - Daron Diane MD [Staff Physician] - Forms: [employer] Info Instructions
[2023-03-27] MEDS: DAPTOmycin 50 MG/ML inj 500 MG IVP (13:20)
--- NOTE | 2023-03-27 16:59 | PC.NURSE ---
Patient arrived to m/s unit to receive antibiotics. PICC in right arm flushed without complication. Medicine given without any adverse reaction. Patient pushed by wheelchair by family to the exit. Will plan to return tomorrow for same medication.
--- NOTE | 2023-04-12 14:46 | PM.EN ---
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 He is on daptomycin 500 mg daily for a planned 6 week course of treatment which will and after the dose on May 06. He has been tolerating this fairly well. He reports generally getting better since surgery. He has a mild cough without other symptoms of illness, fever or dyspnea. He has no significant muscle aches. He reports a fair appetite and he is eating but not a lot. He has been drinking adequately. His creatinine has fluctuated from 2.0-1.5 and now 1.7 today. The daptomycin dose needs to be cut to Q 48 hours if EGFR is below 30. His CPK has been slowly trending upward. Now about 320 with 180 being the upper limit of normal. Prescribing information says that the drug needs to be stopped if CPK reaches 5 times normal. He is not having symptoms of myositis or rhabdomyolysis. He reports some diarrhea. Once or twice a day. No abdominal pain. Daptomycin can cause eosinophilic pneumonia. He has had a mild cold. He attributes this to being exposed to his grandchildren who have colds. I explained to the patient that he should continue twice weekly (Wednesday and ) monitoring of CBC, CPK, basic metabolic panel and monitoring of symptoms. Attention to concerns about myositis, rhabdomyolysis, eosinophilic pneumonia as toxicities of daptomycin. Adjust dose of daptomycin to renal function. Check C diff test if diarrhea worsens. Check chest x-ray if respiratory status deteriorates. Patient plans to return to his home in [place] to finish out the course of treatment. He is staying with his son now until he is stronger. Total time spent today is 30 minutes in counseling and coordination of care regarding management of chronic medical problems and antibiotic management.
== END 2023-03-26 14:30 | disposition home or self-care (01) | DRG 486 ==
LOC: ED 23:50 → MEDSURG 03-21 00:38
PROVIDERS: Family Medicine; Internal Medicine; Orthopaedic Surgery; Orthopaedic Surgery Sports Medicine; Admitting Provider Internal Medicine; Emergency Provider Family Medicine; Visit Provider Internal Medicine
PROC: 0SBC4ZZ Excision of Right Knee Joint, Percutaneous Endoscopic Approach (ICD-10-PCS; CPT 29870; principal; 2023-03-21 07:00)
PROC: 0SBC0ZZ Excision of Right Knee Joint, Open Approach (ICD-10-PCS; principal; 2023-03-25 10:45)
DX: M00.861 Arthritis due to other bacteria, right knee (principal); L03.115 Cellulitis of right lower limb; T84.53XA Infection and inflammatory reaction due to internal right knee prosthesis, initial encounter; R78.81 Bacteremia; N17.9 Acute kidney failure, unspecified; B95.61 Methicillin susceptible Staphylococcus aureus infection as the cause of diseases classified elsewhere; G89.18 Other acute postprocedural pain; I12.9 Hypertensive chronic kidney disease with stage 1 through stage 4 chronic kidney disease, or unspecified chronic kidney disease; E11.22 Type 2 diabetes mellitus with diabetic chronic kidney disease; N18.9 Chronic kidney disease, unspecified; Z96.653 Presence of artificial knee joint, bilateral; M25.561 Pain in right knee; Z79.84 Long term (current) use of oral hypoglycemic drugs; E11.65 Type 2 diabetes mellitus with hyperglycemia; W01.0XXA Fall on same level from slipping, tripping and stumbling without subsequent striking against object, initial encounter; K21.9 Gastro-esophageal reflux disease without esophagitis; M10.9 Gout, unspecified
CPT/HCPCS: 01400; 01402; 36415; 36573; 64447; 64454; 73560; 76942; 80048; 80053; 80069; 82565; 82803; 82962; 83605; 83735; 83880; 84100; 84132; 84145; 84295; 84484; 84520; 84550; 85025; 85027; 85610; 85651; 86140; 87040; 87070; 87075; 87186; 87205; 88305; 93005; 94761; 97110; 97116; 97161; 97162; 97165; 97530; 97535; 99100; 99140; 99285; A9270; C1751; C1776; J0690; J0696; J0878; J1100; J1170; J2250; J2371; J2405; J2704; J2795; J3010; J7030; J7120

== ENCOUNTER 2023-05-24 09:34 | Outpatient (CLI) | payer MEDICARE, BC, SELFPAY | END 2023-05-24 09:35 | disposition home or self-care (01) | PROVIDERS: Visit Provider Orthopaedic Surgery | DX: B99.9 Unspecified infectious disease (principal); Z96.659 Presence of unspecified artificial knee joint | CPT/HCPCS: 87070; 87075; 87205 ==

== ENCOUNTER 2023-06-15 09:15 | Inpatient (IN) | payer MEDICARE, BC, SELFPAY ==
[2023-06-15] VITALS (18 sets, daily range): BP systolic 117–164; BP diastolic 57–127; PULSE 58–82; RESP 12–20; TEMP 35.8–36.8; O2SAT 93–99; BMI 33.1
--- OUTSIDE RECORDS SUMMARY | 2023-06-15 09:23 | XMS_ITS | Continuity of Care Document ---
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 Angioedema Rash Severe Active Dilaudid Hallucination Moderate Active Assessment and Plan Future Appointments Future Scheduled Tests Laboratory* Renal Function Panel 07/02/23 * PTH Intact 07/02/23 * Protein/Creatinine Ratio Urine 07/02/23 * Creatinine 05/03/23 * Creatinine 04/29/23 * CBC w/o Diff 07/02/23 Immunizations Given and Recorded Vaccine Date Status Refusal Reason influenza virus vaccine, inactivated 05/06/23 Give n influenza virus vaccine, inactivated 03/23/22 Give n [...] 23-polyvalent vaccine 01/26/11 Record ed Medications aspirin 81 mg oral capsule 81 mg = 1 cap, Oral, BID, 0 Refill(s) Start Date: 04/27/23 Status: Ordered Eylea 40 mg/mL intraocular solution every month, 0 Refill(s) Start Date: 01/04/23 Status: Ordered FreeStyle Nadira 2 Sensor kit FreeStyle Nadira 2 Sensor kit, See Instructions, USE DIRECTED, # 2 kits, 5 Refill(s), [facility]acy: [facility], 172.08, cm, 06/28/22 12:24:00 DESIGN VERIFICATION ENGINEER, Height/Length Dosing, 109.5, kg, 06/26/22 12:11:00 DESIGN VERIFICATION ENGINEER, Weight Dosing Start Date: 02/23/23 Status: Ordered furosemide 20 mg oral tablet 1 tab, Oral, Daily, PRN NEEDED for swelling, # 30 tab, 0 Refill(s), [facility]: [facility], 172.08, cm, 06/28/22 12:24:00 DESIGN VERIFICATION ENGINEER, Height/Length Dosing, 109.5, kg, 06/26/22 12:11:00 DESIGN VERIFICATION ENGINEER, Weight Dosing Start Date: 02/17/23 Status: Ordered Influenza vaccine high dose quadrivalent 0.7 mL, IM, Telecommunications Officer, 0 Refill(s) Start Date: 05/06/23 Status: Ordered insulin aspart 100 units/mL injectable solution SLIDING SCALE see comments, Subcutaneous, QID, << Sliding Scale Comments >> Blood Glucose Units 150 - 175 mg/dL 2 units 176 - 200 mg/dL 4 units 201 - 225 mg/dL 6 units 226 - 250 mg/dL 8 units 251 - 275 mg/dL 10 units 276 - 300 mg/dL 12 units 301 - 325 mg/dL 14 units 326 - 350 mg/dL 16 units 351 - 375 mg/dL 18 units 376 - 400 mg/dL 20 units Over 400 mg/dL 22 units and notify provider, # 15 mL, 2 Refill(s), Pharmacy: [facility], 172, cm, 05/06/23 14:07:00 DESIGN VERIFICATION ENGINEER, Height, 93, kg, 05/04/23 16:00:00 DESIGN VERIFICATION ENGINEER, Weight Dosing Start Date: 05/07/23 Status: Ordered Januvia 50 mg oral tablet See Instructions, TAKE ONE TABLET BY MOUTH DAILY, # 30 tab, 0 Refill(s), Pharmacy: [facility], 172, cm, 05/06/23 14:07:00 DESIGN VERIFICATION ENGINEER, Height, 95.1, kg, 05/10/23 12:49:00 DESIGN VERIFICATION ENGINEER, Weight Dosing Start Date: 05/19/23 Status: Ordered Libre2 sensors Libre2 sensors, please dispense 2 sensors with a refill. thanks - patient has a coupon card, Supply, See Instructions, # 1 EA, 0 Refill(s), Pharmacy: [facility] Start Date: 09/11/21 Status: Ordered Mucinex 600 mg oral tablet, extended release 600 mg = 1 tab, Oral, every 12 hr, 0 Refill(s) Start Date: 05/06/23 Status: Ordered Pen needles for Insulin Aspart Pen needles for Insulin Aspart, Dispense pen needles to attach insulin aspart pens, Supply, See Instructions, # 120 EA, 2 Refill(s), Pharmacy: [facility] Start Date: 05/07/23 Status: Ordered propranolol 120 mg oral capsule, extended release 1 cap, Oral, Daily, # 90 cap, 0 Refill(s), Pharmacy: [facility], 172, cm, 05/04/23 16:00:00 DESIGN VERIFICATION ENGINEER, Height, 93, kg, 05/04/23 16:00:00 DESIGN VERIFICATION ENGINEER, Weight Dosing Start Date: 05/06/23 Status: Ordered Tylenol 8 HR Arthritis Pain 650 mg oral tablet, extended release 1,300 mg = 2 tab, Oral, every 8 hr, PRN as needed for pain Start Date: 04/22/22 Status: Ordered warfarin 5 mg oral tablet 5 mg = 1 tab, Oral, Daily, In the evening, # 30 tab, 0 Refill(s), Pharmacy: [facility], 172, cm, 05/04/23 16:00:00 DESIGN VERIFICATION ENGINEER, Height, 93, kg, 05/04/23 16:00:00 DESIGN VERIFICATION ENGINEER, Weight Dosing Start Date: 05/06/23 Status: Ordered Problem List Condition Confirmation Course Effective Dates Status H ealth Status Informant Anticoagulation goal of INR 2 to 3 Confirmed Active Arthritis of left knee Confirmed Active Chronic kidney disease Confirmed Active Diabetes mellitus type II 1 [...] Active 1Records from Dr. Riley Diane, [facility] 2Records from Dr. Riley Diane, [facility] 3Records from Dr. Riley Diane, [facility] 4Records from Dr. Riley Diane, [facility] 5Records from Dr. Riley Diane, [facility] Procedures Procedure Date Related Diagnosis [...] polyp Records from Dr. Riley Diane, [facility] 3Records from Dr. Riley Diane, [facility] 4Records from Dr. Riley Diane, [facility] 5Records from Dr. Riley Diane, [facility] Social History Social History Type Response Tobacco Never tobacco user T obacco Use:. Sex Patient Care team information Care Team Personnel Name: JARRETT MOHR MSN,MANAGER DOCUMENTATION-BC Position: SAMANTHA Independent Member Role: Informed Provider Address: Address: [address] [place] [address] Name: KALEE GUO MSN,MANAGER DOCUMENTATION-BC Position: SAMANTHA Independent Member Role: Nurse Practitioner Address: Address: [address] [place] [id number] Name: SARAI BOWEN,AGACNP-BC,MANAGER DOCUMENTATION-BC Position: SAMANTHA Independent Member Role: Nurse Practitioner Address: Address: [address] [place] [address] [place] [address]- Care Team Related Persons Name: DENISE MOYER Address: Home [address] [place], [phone]
--- OUTSIDE RECORDS SUMMARY | 2023-06-15 09:24 | XMS_ITS | Continuity of Care Document ---
Author Name Unknown Organization [facility] Address [address] [place] [address] Care Team Providers Care Blue Prints Trimmer Name Role Phone JARRETT MOHR Primary Care Physician [phone] Encounter REGM_[place] Date(s): 05/25/23 - 05/25/23 [facility] [address] [facility] [address] [place] [address]- us Encounter Diagnosis Anticoagulation goal of INR 2 to 3(Discharge Diagnosis) - 05/25/23 longterm (current) use of anticoagulants(Discharge Diagnosis) - 05/25/23 Discharge Disposition: Home or Self Care Attending Physician: JARRETT MOHR MSN,DIGITAL PRINTER OPERATOR-BC Allergies, Adverse Reactions, Alerts Substance Reaction [...] DIRECTED, # 2 kits, 5 Refill(s), Pharmacy: [facility], 172.08, cm, 06/28/22 12:24:00 SEC REPORTING CONSULTANT, Height/Length Dosing, 109.5, kg, 06/26/22 12:11:00 SEC REPORTING CONSULTANT, Weight Dosing Start Date: 02/23/23 Status: Ordered furosemide 20 mg oral tablet 1 tab, Oral, Daily, PRN NEEDED for swelling, # 30 tab, 0 Refill(s), Pharmacy: [facility], 172.08, cm, 06/28/22 12:24:00 SEC REPORTING CONSULTANT, Height/Length Dosing, 109.5, kg, 06/26/22 12:11:00 SEC REPORTING CONSULTANT, Weight Dosing Start Date: 02/17/23 Status: Ordered Influenza vaccine high dose quadrivalent 0.7 mL, IM, [employer], 0 Refill(s) Start Date: 05/06/23 Status: Ordered [...] provider, # 15 mL, 2 Refill(s), Pharmacy: [facility], 172, cm, 05/06/23 14:07:00 SEC REPORTING CONSULTANT, Height, 93, kg, 05/04/23 16:00:00 SEC REPORTING CONSULTANT, Weight Dosing Start Date: 05/07/23 Status: Ordered Januvia 50 mg oral tablet See Instructions, TAKE ONE TABLET BY MOUTH DAILY, # 30 tab, 0 Refill(s), [facility]: [facility], 172, cm, 05/06/23 14:07:00 SEC REPORTING CONSULTANT, Height, 95.1, kg, 05/10/23 12:49:00 SEC REPORTING CONSULTANT, Weight Dosing Start Date: 05/19/23 Status: Ordered Libre2 sensors Libre2 sensors, please dispense 2 sensors with a refill. thanks - patient has a coupon card, Supply, See Instructions, # 1 EA, 0 Refill(s), [facility]: [facility] Start Date: 09/11/21 Status: Ordered Mucinex 600 mg oral tablet, extended release 600 mg = 1 tab, Oral, every 12 hr, 0 Refill(s) Start Date: 05/06/23 Status: Ordered Pen needles for Insulin Aspart Pen needles for Insulin Aspart, Dispense pen needles to attach insulin aspart pens, Supply, See Instructions, # 120 EA, 2 Refill(s), [facility]: [facility] Start Date: 05/07/23 Status: Ordered propranolol 120 mg oral capsule, extended release 1 cap, Oral, Daily, # 90 cap, 0 Refill(s), [facility]: [facility], 172, cm, 05/04/23 16:00:00 SEC REPORTING CONSULTANT, Height, 93, kg, 05/04/23 16:00:00 SEC REPORTING CONSULTANT, Weight Dosing Start Date: 05/06/23 Status: Ordered Tylenol 8 HR Arthritis Pain 650 mg oral tablet, extended release 1,300 mg = 2 tab, Oral, every 8 hr, PRN as needed for pain Start Date: 04/22/22 Status: Ordered warfarin 5 mg oral tablet See Instructions, Take 1 tab Oral on Wednesday and . Take 1.5tabs all other days or as directed by INR level, # 50 tab, 1 Refill(s), Pharmacy: [facility], 172, cm, 05/06/23 14:07:00 SEC REPORTING CONSULTANT, Height, 95.1, kg, 05/10/23 12:49:00 SEC REPORTING CONSULTANT, Weight Dosing Start Date: 05/25/23 Status: Ordered Problem List Condition Confirmation Course [...] Active 1Records from Dr. Riley Diane, [facility] 2Records from Dr. Riley Diane, [facility] 3Records from Dr. Riley Diane, [facility] 4Records from Dr. Riley Diane, [facility] 5Records from Dr. Riley Diane, [facility] Procedures Procedure Date Related Diagnosis Body Site Status Resection arthroplasty of kn ee with insertion of cement spacer 1 03/25/23 Com pleted Revision right total knee arthroplasty, irrigation and debridement with exchange of polyethylene. 2 05/12/22 Completed Right total knee arthroplasty. 04/21/22 Completed Left total knee arthroplasty. 12/02/21 Completed Screening colonoscopy (Repeat 2021) 3 12/01/16 Completed Appendectomy 4 Completed Cholecystectomy 5 Complet ed Removal of cataract 6 Com [address] 1Dr. 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 See report. 2Revision right total knee arthroplasty, irrigation and debridement with exchange of polyethylene. 32 mm sessile polyp Records from Dr. Riley Diane, [facility] 4Records from Dr. Riley Diane, [facility] 5Records from Dr. Riley Diane, [facility] 6Records from Dr. Riley Diane, [facility] Results Laboratory List Name Date PT/INR POC 05/25/23 Most recent to oldest [Reference Range]: 1 INR POC 2.4 (05/25/23 3:48 PM) Social History Social History Type Response Tobacco Never tobacco user T obacco Use:. Sex Patient Care team information Care Team Personnel Name: JARRETT MOHR MSN,DIGITAL PRINTER OPERATOR-BC Position: [facility] Independent Member Role: Informed Provider Address: Address: [address] [place] [address] Name: KALEE GUO MSN,DIGITAL PRINTER OPERATOR-BC Position: [facility] Independent Member Role: Nurse Practitioner Address: Address: [address] [place] [address] Name: SARAI BOWEN MSN,AGACNP-BC,DIGITAL PRINTER OPERATOR-BC Position: [facility] Independent Member Role: Nurse Practitioner Address: Address: [address] [place] [address] Care Team Related Persons Name: DENISE MOYER Address: Home [address], [id number]
[2023-06-15 10:01] LABS: INR, Point of Care* 1.5 (0.8-1.4)
[2023-06-15] MEDS: LACTATED RINGERS 1000 ML 1,000 ML 100 ML IV ×2 (10:10→11:30)
[2023-06-15] MEDS: SODIUM CHLORIDE 0.9 % (FLUSH) 10 ML SYRINGE IVF (10:10)
[2023-06-15] MEDS: CELECOXIB 200 MG CAPSULE PO (10:16)
[2023-06-15] MEDS: OXYCODONE (CR) 10 MG TAB.ER.12H PO (10:16)
[2023-06-15] MEDS: ACETAMINOPHEN 500 MG TABLET 1000 MG PO ×2 (10:16→18:59)
[2023-06-15 10:33] LABS: INR 1.32 (0.91-1.10); Prothrombin Time 17.3 Seconds
[2023-06-15] MEDS: MIDAZOLAM HCL 1 MG/ML inj IVP (10:53)
[2023-06-15] MEDS: fentaNYL 100 MCG/2 ML inj IVP (10:53)
--- NOTE | 2023-06-15 11:11 | SUR.PREOP ---
TIME?OUT: 1053? PT/RN/MDA?VERIFICATION?OF?SURGICAL?SITE,?PROCEDURE,?AND?CONSENT OBTAINED?PRIOR?TO?INVASIVE?PROCEDURE. all in agreement
[2023-06-15] MEDS: TRANEXAMIC ACID 100 MG/ML INJ 1000 MG IV (11:30)
[2023-06-15] MEDS: CEFAZOLIN 2 GM INJ IVP (11:30)
--- NOTE | 2023-06-15 13:13 | W.PM.NB ---
Nerve Block Nerve Block Time Seen by Provider: 10:58 Date Seen: 06/15/23 Type of block requested by surgeon for post-operative analgesia: adductor canal Side: right Time out performed: Yes Verification of patient name: Yes Verification of date of : Yes Site marking: site marked Name of person performing procedure: Cole Continuous monitoring Was continuous monitoring of O2 sat, B/P, blower feeder dyed raw stock, recorded every 15 minutes?: Yes Procedure Checklist: sterile prep, needles and gloves Ultrasound guided. Images saved: Yes Medications given in 5ml increments after negative aspiration: Ropivicaine %: 0.5 mL: 20 Needle gauge: 20 Decadron (mg): 10 Precedex (mcg): 25 Patient tolerated procedure well: Yes Additional comments: Needle noted adjacent to nerve Block Charges Block Charge (with Pro Fee): Femoral Nerve Use of Ultrasound Machine for Block: Yes- US Guidance/pain block
--- NOTE | 2023-06-15 13:14 | P.NB_ITS ---
Nerve Block Nerve Block Time Seen by Provider: 10:58 Date Seen: 06/15/23 Type of block requested by surgeon for post-operative analgesia: geniculars Side: right Time out performed: Yes Verification of patient name: Yes Verification of date of : Yes Site marking: site marked Name of person performing procedure: Cole Continuous monitoring Was continuous monitoring of O2 sat, B/P, vehicle monitor technician, recorded every 15 minutes?: Yes Procedure Checklist: sterile prep, needles and gloves Medications given in 5ml increments after negative aspiration: Ropivicaine %: 0.5 mL: 9 Needle gauge: 25 Patient tolerated procedure well: Yes Block Charges Block Charge (with Pro Fee): Genicular Nerve Block Use of Ultrasound Machine for Block: No
--- NOTE | 2023-06-15 13:15 | W.ANESCHARGE ---
Anesthesia Charges Start Date/Time Anesthesia Start Date: 06/15/23 Anesthesia Start Time: 11:04 Stop Date/Time Anesthesia Stop Date: 06/15/23 Anesthesia Stop Time: 14:56 Summary Extremes of Age - Over 70 or under 1: MDA
--- NOTE | 2023-06-15 14:06 | CRLHL7_ITS ---
For Patients: As a result of the Century Cures Act, medical imaging exams and procedure reports are released immediately into your electronic medical record. You may view this report before your referring provider. If you have questions, please contact your health care provider. INDICATION: Postop TECHNIQUE: Two views right knee FINDINGS: Right knee arthroplasty with long-stem components within the femur and tibia. Postoperative soft tissue gas and edema. No hardware complications are seen. Dictated by Fransisca Ramírez MD @ 06/17/2023 12:58:18 PM (Electronically Signed)
--- NOTE | 2023-06-15 14:09 | P.ORPRC_ITS ---
Procedure Note Date of procedure: 06/15/23 Procedure: PREOPERATIVE DIAGNOSIS: Septic right total knee arthroplasty POSTOPERATIVE DIAGNOSIS: Septic right total knee arthroplasty NAME OF OPERATION: Revision right total knee arthroplasty SURGEON: Miguel Tanner MD DIRECTOR MARKETING ANALYTICS: CHIDI Magaña PA-C ANESTHESIA: Spinal ESTIMATED BLOOD LOSS: 0 mL COMPLICATIONS: None SPECIMENS: None DRAINS: None PREOPERATIVE ANTIBIOTICS: Ancef 2 grams, antibiotic impregnated cement IMPLANTS: 1. J&J Attune revision CRS # 8 posterior stabilized femur, with a 30 mm sleeve, 14 mm x 60 mm ingrowth stem, 4 mm augments posteriorly both medially and laterally 2. #6 revision CRS rotating platform tibia, 37 mm sleeve, 16 mm x 60 mm ingrowth stem 3. #6 posterior stabilized, 16 mm rotating platform polyethylene 4. 38 patella INDICATIONS: The patient is a 78-year-old with a history of septic right total knee arthroplasty. He has previously undergone resection arthroplasty with an antibiotic cement impregnated articulated spacer. He has been off antibiotics and his workup for infection has been negative. He presents today for elective reimplantation of his knee. The risks, benefits and expected outcomes were discussed in detail. These included but were not limited to: Infection, bleeding, injury to blood vessel or nerve, venous thromboembolism. All questions were answered to their satisfaction. Use of an speech assistant was necessary throughout the case for patient positioning and safety, soft tissue retraction, and closure. PROCEDURE: Spinal anesthesia was administered. The patient was placed supine on the operating table. The speech assistant made sure the patient was positioned appropriately. The lower extremity was prepped and draped in the usual sterile fashion. The limb was exsanguinated with the Deshawn bandage. The pneumatic tourniquet was inflated to 300 mmHg. The previously placed standard anterior incision was made with the knee in flexion. Subcutaneous dissection was sharply taken to the quads tendon. Full- thickness medial and lateral flaps were elevated. The speech assistant retracted the soft tissues and protected them throughout the case. Again, a standard medial parapatellar approach was made. The patella was subluxed. As expected, there is a significant amount of scarring throughout the knee which was aggressively debrided. The tibial side of the spacer was cracked with an osteotome and removed. Likewise, the femoral side was cracked into several pieces and removed. This did not result in significant loss of bone. Attention was then turned to the proximal tibia. The drill was used to reestablish the tibial canal. Back cutting curettes were used to debride all of the soft tissue scar. The speech assistant protected the collateral ligaments and the neurovascular bundle. Reamers were used to 17 mm. The 37 mm broach has excellent fit. Several mm of proximal tibia were resected with the saw. The 6 tray appears to be an excellent fit. Attention was then turned to the distal femur. The drill was used to re establish the femoral canal. Reamers were used to 14 mm. The distal femoral cutting guide was placed and the distal cut was freshened up removing 2 mm from the medial side. Broaches were used to 30 mm which had excellent fit. Cutting guide was placed on the distal femur, parallel to our tibial component the anterior, posterior and posterior chamfer cuts were freshened up. We then placed the 2nd guide on the femur and did the box cuts and the anterior chamfer cut. The 8 stemmed femoral trial with 4 mm posterior augments was placed. This fit well. Trial polyethylene was placed. With some effort we were able to get the 16 mm poly in. This shows the knee is nicely balanced in both flexion and extension. The joint line is nicely reproduced at the meniscal scar. Attention was then turned to the patella. The cut surface of the patella was freshened up with the oscillating saw. Drill holes were made by the speech assistant. The trial was placed and was an excellent fit. Cancellous surfaces were irrigated with pulse lavage and thoroughly dried by the speech assistant. We cemented the tibial component, then the femoral component. We placed the 14 mm polyethylene spacer . The knee was brought into full extension. We then cemented the patellar component. Excessive cement was removed. The cement was allowed to harden. We then removed trial polyethylene and placed the 16 mm, rotating platform constrained polyethylene. The knee was taken through a range of motion and was found to be nicely balanced in both flexion and extension. The patella tracks centrally. The speech assistant did a three minute dilute Betadine solution soak. The speech assistant irrigated the wound with 3 liters of normal saline via pulse lavage. The speech assistant reapproximated the extensor mechanism with #1 Vicryl in an interrupted [id number] fashion. The speech assistant then ran the extensor mechanism with a #1 PDO Stratafix. The speech assistant closed the subcutaneous tissues with a 3-0 Stratafix and the skin with a running 3-0 Stratafix in a subcuticular fashion. Glue was used to seal the skin. The speech assistant placed a dry dressing, GIGI stocking, and Polar Care. Sponge and needle counts were correct x2. The patient tolerated the procedure well. There were no apparent complications. They were carefully transferred to the hospital bed and taken to the postanesthesia care unit in satisfactory condition. PLAN: The patient will be mobilized with physical therapy. The patient's usual dose of Coumadin can be restarted. They will be discharged to home once medically appropriate.
--- NOTE | 2023-06-15 14:58 | P.ANES_ITS ---
Anesthesia Charges Start Date/Time Anesthesia Start Date: 06/15/23 Anesthesia Start Time: 11:04 Stop Date/Time Anesthesia Stop Date: 06/15/23 Anesthesia Stop Time: 14:56 Summary Extremes of Age - Over 70 or under 1: MANAGER OF PROJECT MANAGEMENT
--- NOTE | 2023-06-15 16:10 | PM.IMCN1 ---
Date of Consult Patient: [facility] Patient Consult date: 06/15/23 Requesting Physician: Orthopedics Primary Care Provider: VINEET Houston, [place], [place] Consult Narrative Reason for consult: Medical management Narrative: Eddie Bearden is a 78 year old male past medical history significant for diabetes mellitus, hypertension, hyperlipidemia, CKD, gout, recent pneumonia and pulmonary embolism (03/20) currently on anticoagulation, four previous surgeries of the right knee with history of MSSA infection is POD#0 status post revision of right total knee arthroplasty. Patient reports feeling great postoperatively. Currently has no pain. Denies headache or dizziness. Denies chest pain or shortness of breath. Has no nausea and is tolerating orals. There have been no perioperative complications or nursing concerns reported. Estimated total blood loss documented as 0 ml. Updated and reviewed the active medical problems, past medical history, past surgical history, social history, allergies and medications in our electronic EMR. Preoperative exam and report from PCP in [place], [place] reviewed. Review of Systems Narrative: REVIEW OF SYSTEMS: Complete review of systems performed and negative unless otherwise stated in HPI or below. PFSH REPLACED BY [facility] Medical History Pulmonary embolus ?I26.99 - Other pulmonary embolism without acute cor pulmonale (ICD-10) CKD (chronic kidney disease) ?N18.9 - Chronic kidney disease, unspecified (ICD-10) Elevated CPK ?R74.8 - Abnormal levels of other serum enzymes (ICD-10) History of removal of joint prosthesis of knee due to infection ?Z98.890 - Other specified postprocedural states (ICD-10) ?Z86.19 - Personal history of other infectious and parasitic diseases (ICD-10) Septic joint of right knee joint ?M00.9 - Pyogenic arthritis, unspecified (ICD-10) Problem with continuity of care ?Z91.199 - Patient's noncompliance with other medical treatment and regimen due to unspecified reason (ICD-10) Aftercare following removal of joint prosthesis ?Z47.89 - Encounter for other orthopedic aftercare (ICD-10) Failed total right knee replacement ?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.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 - Broken internal right knee prosthesis, initial encounter (ICD-10) Osteoarthritis of right knee ?M17.11 - Unilateral primary osteoarthritis, right knee (ICD-10) Obesity ?E66.9 - Obesity, unspecified (ICD-10) Left shoulder pain ?M25.512 - Pain in left shoulder (ICD-10) Infection of prosthetic right knee joint ?T84.53XA - Infection and inflammatory reaction due to internal right knee prosthesis, initial encounter (ICD-10) Diabetes mellitus ?E11.9 - Type 2 diabetes mellitus without complications (ICD-10) Acid reflux ?K21.9 - Gastro-esophageal reflux disease without esophagitis (ICD-10) Hyperlipidemia ?E78.5 - Hyperlipidemia, unspecified (ICD-10) Erectile dysfunction ?N52.9 - Male erectile dysfunction, unspecified (ICD-10) Arthritis of left knee ?M17.12 - Unilateral primary osteoarthritis, left knee (ICD-10) Acute kidney injury ?N17.9 - Acute kidney failure, unspecified (ICD-10) Hypertension ?I10 - Essential (primary) hypertension (ICD-10) Gout ?M10.9 - Gout, unspecified (ICD-10) Acid reflux ?K21.9 - Gastro-esophageal reflux disease without esophagitis (ICD-10) Surgical History Hx of cataract surgery ?Z98.49 - Cataract extraction status, unspecified eye (ICD-10) 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) ?Z96.652 - Presence of left artificial knee joint (ICD-10) History of revision of total replacement of right knee joint (~05/2022) ?Z96.651 - Presence of right artificial knee joint (ICD-10) Status post arthroscopy of right knee (03/21/23) ?Z98.890 - Other specified postprocedural states (ICD-10) 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 Currently has been living in [place]. He is now staying with his son in [place]. Previously was a primary care patient of Dr. Yoon. What is your current living situation?: I presently have a place to live Problems where you live: no known problems Problems where you live details: no known problems In the past 12 months, utilities in danger of being shut off: no In past 12 months, lack of transportation kept you from medical appts, meetings, work, or getting things needed for daily living: no In the past 12 mos, have been you worried that your food would run out before you had money to buy more?: never true In the past 12 mos, the food you bought just didn't last and you didn't have money to buy more?: never true Highest level of school completed/degree received: 12th grade, no diploma Smoking Status: Never smoker Do you use any of these nicotine containing products: None Second hand tobacco smoke exposure: No How often do you have a drink containing alcohol: 2-4 times a month How often do you have six or more drinks on one occasion: Never AUDIT-C Alcohol total score: 2 Non-prescribed substance use: denies use Caffeine: Yes (soda) How often does anyone, including family, friends and others, physically hurt you: never How often does anyone, including family, friends and others, insult or talk down to you: never How often does anyone, including family, friends and others, threaten you with harm: never How often does anyone, including family, friends and others, scream or curse at you: never service: Yes Meds Home Medications and Allergies Home Medications Medication Instructions Recorded Confirmed Type irbesartan 75 mg tablet 75 mg PO DAILY 03/20/23 06/15/23 History propranolol 120 mg capsule,24 120 mg PO DAILY 03/20/23 06/15/23 History hr,extended release Lactobacillus acidophilus 10 20,000 mmu cells PO DAILY PRN 03/21/23 06/15/23 History billion cell capsule (Probiotic) aflibercept 2 mg/0.05 mL 2 mg intravitreal Q4W 03/21/23 06/15/23 History intravitreal solution for injection (Eylea) glipizide 10 mg tablet 5 mg PO HS PRN 03/21/23 06/15/23 History sitagliptin phosphate 50 mg tablet 50 mg PO DAILY 05/24/23 06/15/23 History (Januvia) furosemide 20 mg tablet (Lasix) 20 mg PO DAILY 06/14/23 06/14/23 History metformin 500 mg tablet 500 mg PO DAILY 06/14/23 06/15/23 History warfarin 5 mg tablet 5 mg PO DAILY 06/14/23 06/15/23 History Allergies Allergy/AdvReac Type Severity Reaction Status Date / Time atorvastatin Allergy Verified 05/24/23 08:47 vancomycin Allergy Verified 05/24/23 08:47 hydromorphone [From Dilaudid] AdvReac Intermediate Nausea Verified 05/24/23 08:47 Exam Narrative: Exam Narrative: PHYSICAL EXAM General: Pleasant, conversant, NAD HEENT: Normocephalic, atraumatic, sclera white, EOMI, oral mucosa moist Cardiovascular: RRR, S1S2. No pitting edema Pulmonary: CTA bilaterally without rhonchi, rales, expiratory wheezes. No dyspnea Abdominal: Soft, nondistended, NTTP Neurological: Alert, answering questions appropriately, cranial nerves intact, no focal findings Extremities: No gross joint deformity or swelling. Postoperative dressing in place, dry. Neurovascularly intact Skin: Warm, dry. Const: Vital Signs, click to edit/add: Vital Signs - 24 hr 06/15/23 10:26 06/15/23 10:55 06/15/23 14:51 Temperature 98.2 F 97.0 F L Pulse Rate 71 74 62 Respiratory Rate 16 16 12 Blood Pressure 164/83 H 155/98 H 128/57 L Pulse Oximetry 95 99 96 Oxygen Delivery Me thod Room Air Nasal Cannula Room Air Oxygen Flow Rate 2 06/15/23 14:55 06/15/23 15:00 06/15/23 15:05 Temperature 96.5 F L Pulse Rate 62 60 59 L Respiratory Rate 14 14 15 Blood Pressure 149/81 H 120/87 138/83 Pulse Oximetry 98 96 98 Oxygen Delivery Me thod Room Air Room Air Room Air Oxygen Flow Rate 06/15/23 15:10 06/15/23 15:15 06/15/23 15:20 Temperature 97.5 F L Pulse Rate 59 L 58 L 60 Respiratory Rate 14 14 15 Blood Pressure 130/108 H 140/82 H 142/78 H Pulse Oximetry 98 98 98 Oxygen Delivery Me thod Room Air Room Air Room Air Oxygen Flow Rate Assessment and Plan Assessment and plan (1) Status post arthroscopy of right knee: Problem comment: -POD#0 s/p revision of right total knee arthroplasty. Surgery #5 -perioperative management including pain management per Orthopedic surgery. Will need to discuss anticoagulation postoperatively in setting of therapeutic management of PE (02/2023) -encourage postoperative pulmonary hygiene -PT OT consults -plan to discharge with his son to his son's home (in [place]) Status: Acute (2) Type 2 diabetes mellitus: Problem comment: -most recent A1c 8 -continue glipizide (has finished Januvia), hold metformin - resume upon discharge or readdress if requires longer hospitalization -encourage diabetic diet, glucose checks ACHS, insulin sliding scale Status: Chronic (3) CKD (chronic kidney disease): Problem comment: -with history of BEAN -creatinine 1.3 on 05/28/2023. Avoid nephrotoxic medications. Recheck in a.m. Status: Chronic (4) Hypertension: Problem comment: -resume propranolol tomorrow, hold furosemide, (no longer taking irbesartan), continue to monitor Status: Chronic (5) Pulmonary embolus: Problem comment: -dx end of February 2023 during hospitalization (back home) with pneumonia. Has been on chronic anticoagulation with warfarin -resume anticoagulation postoperatively per Orthopedic surgery, may need bridging, follow INR, goal 2-3 Status: Chronic Plan Hospital medicine team will continue to follow as needed.
[2023-06-15] MEDS: CEFAZOLIN 2 GM in 0.9 % SODIUM CHLORIDE Mini-bag 100 ML IVPB (18:59)
[2023-06-15] MEDS: WARFARIN 5 MG TABLET PO (18:59)
[2023-06-15] MEDS: INSULIN ASPART 100 UNIT/ML SUBCUT (19:00)
--- NOTE | 2023-06-15 19:50 | PC.NURSE ---
Nursing Care Hours: [id number] Pt this shift arrived from PACU in stable condition, alert and oriented. R leg slightly cooler than left leg. R great toe cap refill 4 seconds, L great toe 3 seconds, pedal pulses equal and strong. Bandage CDI, cryocuff on. R knee swollen. Bearhugger on for about 45 min. IV patent, SL. Eating and drinking, pain controlled, up to void x1 with near SB assist. Insulin given per sliding scale.
[2023-06-15] MEDS: glipiZIDE 5 MG TABLET PO (22:02)
[2023-06-16] MEDS: ACETAMINOPHEN 500 MG TABLET 1000 MG PO ×3 (00:15→11:44)
[2023-06-16] MEDS: OXYCODONE 5 MG TABLET PO ×2 (02:31→08:42)
[2023-06-16] MEDS: CEFAZOLIN 2 GM in 0.9 % SODIUM CHLORIDE Mini-bag 100 ML IVPB (02:31)
--- NOTE | 2023-06-16 04:05 | PC.NURSE ---
Pt pleasant and cooperative and a talker. VSS, He is up with SBA of 1 and walker with gait belt. Right knee slightly swollen. Drsg is CDI no drainage noted. Oxycodone x1 this shift.
[2023-06-16 06:12] LABS: Hematocrit 30.6 % (37.0-53.0); Hemoglobin* 9.8 gm/dL (13.5-17.5); Immature Granulocytes Pct Auto 0.4 %; Lymphocytes Percent Auto 11.3 % (20-44); Mean Corpuscular HGB Conc 32 gm/dL (32-36); Mean Corpuscular Hemoglobin 29 pg (26-34); Mean Corpuscular Volume 90 fL (80-100); Monocytes Percent Auto 3.9 % (0.0-11.0); Neutrophils Percent Auto 84.4 % (42.0-72.0); Platelet Count* 241 K/uL (140-440); RDW Coefficient of Variation % 15.2 % (11.5-15.5); Red Blood Count 3.41 m/uL (4.30-5.90); White Blood Count* 11.24 K/uL (4.50-11.00)
[2023-06-16 06:20] LABS: Sodium* 135 mmol/L (135-149)
[2023-06-16 06:21] LABS: Potassium* 4.5 mmol/L (3.6-5.1)
[2023-06-16 06:23] LABS: Creatinine* 1.4 mg/dL (0.5-1.5); Est. Creatinine Clearance* 41.31; Estimated Glomerular Filt Rate 52 ml/min
[2023-06-16 06:24] LABS: Blood Urea Nitrogen* 31 mg/dL (7-30)
[2023-06-16 06:30] LABS: Slide Review Reflex No
[2023-06-16 06:36] LABS: INR 1.33 (0.91-1.10); Prothrombin Time 17.3 Seconds
[2023-06-16] MEDS: INSULIN ASPART 100 UNIT/ML SUBCUT (08:31)
[2023-06-16] MEDS: SODIUM CHLORIDE 0.9 % (FLUSH) 10 ML SYRINGE IVF (08:32)
[2023-06-16] MEDS: SENNOSIDES 1 TAB TABLET 2 TAB PO (08:33)
[2023-06-16] MEDS: RIVAROXABAN 10 MG TABLET PO (08:42)
--- NOTE | 2023-06-16 09:05 | PM.ORPN ---
Subjective Subjective Time Seen by Provider: 07:15 Date Seen: 06/16/23 Principal diagnosis: Status post revision right knee replacement and removal of antibioti cemen Interval history: Winston states he is doing well this morning. He has ambulated to the restroom twice. This went well. He denies nausea vomiting. He is comfortable. Ortho Exam Narrative Exam Narrative: Alert and oriented x3. Patient is in no acute distress. Converses without labored breathing. Hearing is grossly intact. Ambulates with a walker. Examination of the right knee shows the dressing is intact. Minimal effusion. Minimal soft tissue edema. No erythema or warmth or sign of infection. CMS intact right lower extremity. Calves are soft and nontender. Const Vital Signs, click to edit/add: Vital Signs - 24 hr 06/15/23 10:26 06/15/23 10:55 06/15/23 14:51 Temperature 98.2 F 97.0 F L Pulse Rate 71 74 62 Pulse Rate [Right Pulse Oximeter] Respiratory Rate 16 16 12 Blood Pressure 164/83 H 155/98 H 128/57 L Blood Pressure [Right Arm] Pulse Oximetry 95 99 96 Oxygen Delivery Method Room Air Nasal Cannula Room Air Oxygen Flow Rate 2 06/15/23 14:55 06/15/23 15:00 06/15/23 15:05 Temperature 96.5 F L Pulse Rate 62 60 59 L Pulse Rate [Right Pulse Oximeter] Respiratory Rate 14 14 15 Blood Pressure 149/81 H 120/87 138/83 Blood Pressure [Right Arm] Pulse Oximetry 98 96 98 Oxygen Delivery Method Room Air Room Air Room Air Oxygen Flow Rate 06/15/23 15:10 06/15/23 15:15 06/15/23 15:20 Temperature 97.5 F L Pulse Rate 59 L 58 L 60 Pulse Rate [Right Pulse Oximeter] Respiratory Rate 14 14 15 Blood Pressure 130/108 H 140/82 H 142/78 H Blood Pressure [Right Arm] Pulse Oximetry 98 98 98 Oxygen Delivery Method Room Air Room Air Room Air Oxygen Flow Rate 06/15/23 15:28 06/15/23 15:30 06/15/23 15:45 Temperature Pulse Rate Pulse Rate [Right Pulse Oximeter] 64 Respiratory Rate 16 16 16 Blood Pressure Blood Pressure [Right Arm] 117/75 147/100 H 153/86 H Pulse Oximetry 93 Oxygen Delivery Method Room Air Room Air Room Air Oxygen Flow Rate 06/15/23 16:00 06/15/23 16:15 06/15/23 16:30 Temperature 97.4 F L Pulse Rate Pulse Rate [Right Pulse Oximeter] 69 65 70 Respiratory Rate 18 18 Blood Pressure Blood Pressure [Right Arm] 147/127 H 157/86 H 156/105 H Pulse Oximetry 95 99 Oxygen Delivery Method Room Air Room Air Oxygen Flow Rate 06/15/23 17:00 06/15/23 18:00 06/15/23 19:00 Temperature 97.1 F L 97.8 F Pulse Rate Pulse Rate [Right Pulse Oximeter] 71 79 82 Respiratory Rate 16 20 Blood Pressure Blood Pressure [Right Arm] 164/94 H 136/77 142/81 H Pulse Oximetry 98 98 97 Oxygen Delivery Method Room Air Room Air Room Air Oxygen Flow Rate Assessment and Plan Assessment and plan (1) Status post revision of total replacement of right knee: Problem details: 06/15/2023, also removal of antibiotic cement spacers Status: Acute Assessment and Plan: Plan for discharge is today to home if they meet discharge criteria. DVT prophylaxis includes warfarin, he takes 5 mg Wednesday and and 7.5 mg on all other days. He will resume this. Also Xarelto for bridging, Xarelto 10 mg daily for 5 days. Claude stockings x1 month may remove for 1 hr per day, frequent ambulation INR check at [facility] on Wednesday. Remove dressing in 1 week. Observe wound and phone Orthopedics with any questions or concerns Return to clinic in 1 week for a wound check Return to clinic in 6 weeks with surgeon Minimize narcotic use. Wean off and discontinue soon as possible. Activities as tolerated. No strenuous activity. Outpatient physical therapy as scheduled. Ice and elevate the operative extremity. No restriction on ice. He has Tylenol and senna at home Oxycodone is sent to his pharmacy, [facility] He plans to stay with his son for a week. He will see me next week. His doctor and [place] will be monitoring his INR and warfarin dosing once he returns to [place]. INR goal is 2-3.
--- NOTE | 2023-06-16 11:26 | PC.SOCIAL ---
Discharge planning: Met with pt to discuss discharge planning. Pt feels good about discharging and going to his son's house with a plan for outpatient physical therapy. Pt had no other concerns. Social work to follow-up as needed.
--- NOTE | 2023-06-16 14:32 | PC.NURSE ---
Please see eMar for meds provided. Eval by Kristin chi PA, PT and OT. Pt and son Shaheen verbalized understanding of d/c diagnosis, new RX, home meds, f/up appts and sx to report urgently to physician. Discharged via w/c with personal belongings at 1217 with son Shaheen as transportation. He will stay with Shaheen in [facility]. Pt lives in [place].
== END 2023-06-16 12:17 | disposition home or self-care (01) | DRG 468 ==
PROVIDERS: Anesthesiology; Admitting Provider Orthopaedic Surgery; Visit Provider Orthopaedic Surgery
PROC: 0SRC0J9 Replacement of Right Knee Joint with Synthetic Substitute, Cemented, Open Approach (ICD-10-PCS; CPT 27447; principal; 2023-06-15 12:00)
DX: Z47.33 Aftercare following explantation of knee joint prosthesis (principal); G89.18 Other acute postprocedural pain; I12.9 Hypertensive chronic kidney disease with stage 1 through stage 4 chronic kidney disease, or unspecified chronic kidney disease; E11.22 Type 2 diabetes mellitus with diabetic chronic kidney disease; N18.9 Chronic kidney disease, unspecified; Z86.711 Personal history of pulmonary embolism; Z79.01 Long term (current) use of anticoagulants; E66.9 Obesity, unspecified; Z68.34 Body mass index [BMI] 34.0-34.9, adult
CPT/HCPCS: 01402; 36415; 64447; 64454; 73560; 76942; 82565; 82962; 84132; 84295; 84520; 85025; 85610; 97116; 97161; 97165; 97535; 99100; A9270; C1776; J0690; J2250; J2371; J2405; J2704; J3010; J7120

== ENCOUNTER 2023-06-18 14:00 | Outpatient (CLI) | payer MEDICARE, BC, SELFPAY ==
--- OUTSIDE RECORDS SUMMARY | 2023-06-18 14:06 | XMS_ITS | Patient Health Record ---
Author Name Unknown Organization [facility] Address [address] [place], [place] [address] Care Team Providers Care Cream Dipper Name Role Phone MOHR JARRETT THACKER Primary Care Provider ASIYA Delarosa Unavailable [phone] DON TRIPP Unavailable [phone] ALLERGIES Allergen (clinical drug ingredient) Drug/Non Drug Allergy documented on EMR Reaction Allergy Type Onset Date Status vancomycin Vancomycin HCl swelling Drug Allergy A ctive REASON FOR REFERRAL No Information MEDICATIONS Medication [...] Levaquin 750 MG 0.5 tablet Orally On a day IV Not-Taking Irbesartan 300 MG [...] Vaccine Route Administration Date Status Comme nts Influenza, high dose seasonal Unknown 04/03/2021 Admini stered Moderna COVID 19 mRNA bivale nt boost 50mcg/0.5mL Unknown 03/11/2022 Administered Moderna COVID-19 Vaccine Unknown 08/16/2020 Administere d Moderna COVID-19 Vaccine Unknown 09/13/2020 Administere d Moderna COVID-19 Vaccine Unknown 04/25/2021 Administere d Moderna COVID-19 Vaccine Unknown 10/24/2021 Administere d Shingrix Unknown 06/16/2021 Administered SOCIAL HISTORY Tobacco Use: Social History Observation [...] total right knee replacement (Z96.651) Active confirmed [id number] Problem Right shoulder pain, unspecified chronicity (M25.511) Active confirmed 24966988 Problem Left shoulder pain, unspecified chronicity (M25.512) Active confirmed 97984043 Problem Arthritis of left knee (M17.12) Active confirmed [id number] Problem Osteoarthritis of right knee, unspecified osteoarthritis type (M17.11) Active confirmed [id number] Problem History of knee surgery (Z98.890) Active confirmed History of knee surgery (926125122) Problem Failed total right knee replacement, 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 [id number] Encounters En[facility] Date [facility] [address] [place], [place] [id number] 06/23/2022 ASIYA DONATO [facility] [address] [place], [place] [id number] 06/26/2022 ASIYA DONATO Status post total right knee replacement Z96.651 [facility] [address] [place], [place] [id number] 07/10/2022 ASIYA DONATO Status post total right knee replacement Z96.651 [facility] [address] [place], [place] [id number] 10/20/2022 DON TRIPP Right shoulder pain, unspecified chronicity M25.511 [facility] [address] [place], [place] [phone] 10/23/2022 DON TRIPP Left shoulder pain, unspecified chronicity M25.512 [facility] [address] [facility] [place] [id number] 09/11/2022 ASIYA DONATO ASSESSMENTS Encounter Date Diagnosis Assessment Notes Treatment Notes Treatment Clinical Notes 06/26/2022 Status post total right knee replacement [...] Patient to otherwise follow up as needed. 10/20/2022 Other 77-year-old mal e with right shoulder pain. Combination of Depo-Medrol and Marcaine was injected into right shoulder intra-articular space under sterile prep. Patient tolerated well. He is going to return to the office on Wednesday for left shoulder injection. 06/26/2022 Other Patient is abou t 6 [...] in 2 months for repeat clinical check PLAN OF TREATMENT No Information Insurance Providers Payer Name Payer Address Payer Phone Subscriber Number Group Number Insured Name Patient Relationship to Insured Coverage Start Date Coverage End Date [employer] MEDICARE PART B [address] [place] [address] [id number] SILVIO MOYER Self - patient is the insured 2 [employer] BC[employer] [address] [place], [place] [id number] [phone] [id number] SILVIO MOYER Self - patient is the [...] KNEE REPLACEMENT 12/02/21 COLONOSCOPY CATARACT SURGERY; COMPLEX APPENDECTOMY Cholecystecomy
[2023-06-18 15:24] LABS: INR 2.33 (0.91-1.10); Prothrombin Time 27.3 Seconds
--- NOTE | 2023-06-18 15:42 | PC.NURSE ---
ENTERED PATIENT'S CHART TO PRINT OFF INR RESULTS. PATIENT SIGNED AUTHORIZATION FOR RELEASE OF INFORMATION TO ALLOW INR RESULTS TO BE FAXES TO HIS PCP IN [place]. INR RESULTS SENT TO JARRETT MOHR AT [facility] IN [place], [place]. FAX #[phone].
== END 2023-06-18 14:01 | disposition home or self-care (01) ==
PROVIDERS: Visit Provider Orthopaedic Surgery
DX: Z79.899 Other long term (current) drug therapy (principal); N18.9 Chronic kidney disease, unspecified
CPT/HCPCS: 36415; 85610

== ENCOUNTER 2023-06-25 13:00 | Outpatient (RCR) | payer MEDICARE, BC, SELFPAY ==
--- NOTE | 2023-06-17 15:37 | PT.OPEX ---
PT [place] Outpatient Eval PT [facility] Outpatient Eval Start: 06/17/23 12:58 Freq: Status: Active Protocol: Document 06/17/23 12:59 AMS (Rec: 06/17/23 15:31 AMS [id number]) E-signed By Rebecca Lomax PT Physical Therapy Outpatient Evaluation Insurance Information Recert Due Date 09/10/23 Insurance Name Medicare B,[employer] Medical Diagnosis S/p right knee revision on Presence of right artificial knee joint Treating Diagnosis Right knee pain Right knee stiffness Muscle weakness Difficulty walking Referring MD Tanner Subjective Subjective Very pleasant 77-year-old male presents with approximately 3 day duration right knee pain, swelling, decreasing range of motion, stiffness, most recently today (03/20/2023) nausea, fevers with no objective measured fevers at home. In ED today, 101.3F temperature. Painful to walk due to right knee pain . He is visiting the area from [place], staying in [facility] with his son. Plan is to go to [place] for a fishing trip. Due to unrelenting right knee pain, he presented to [facility] ER [place], driving himself. Approximately 2 weeks ago, patient fell directly onto the right knee after tripping on a throw rug. Noted scuffing the knee. He placed a bandage . Eventually scab developed over the kneecap. No significant drainage. There was no misstep in a slightly flexed right knee. No knee manipulation. Was able to walk on the knee post fall without issue. His past medical history is pertinent for right TKA, approximately April 2022. He then developed infection in this right knee 3 weeks postop, and returned to the operating room for what sounds like poly exchange. Per his report, it does not appear they exchanged the femoral and tibial component, nor the patellar component. He was on 33 days of vancomycin until reported reaction to vancomycin; thus stopping vancomycin. The right knee did okay after all this, but never did as well as his left knee. He feels he achieved most of his ROM, but was unable to participate fully in his PT compared to his left knee, as he was taking care of his who was sick (ALS). His in November 2022. History also pertinent for left TKA November 2021. He has had no issues with the left TKA. [place] shoulders, [place] hips. Receives corticosteroid injections for his bilateral shoulders. - Myles Ko, 03/20/23, confirmed by patient Patient presents to physical therapy 2 days s/p right total knee arthroplasty revision and antibiotic spacer removal on 06/15. 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 He then underwent resection arthroplasty and placement of articulated antibiotic spacer on 03/25/23. He developed post- operative pneumonia and was hospitalized in [place], where he currently lives. He then had six weeks of IV daptomycin therapy for bacteremia and infected prosthetic joint with MSSA. This was all leading up to most recent revision right total knee arthroplasty on and removal of antibiotic spacer. Patient states he is doing pretty well after this surgery . He is staying at his son's house right now for 10 days after discharge yesterday, and his son has been helping him with ADLs as needed. He did 15 stairs this morning 2x to and from his bedroom downstairs, which went well. He has taken oxycodone one hour prior to today's session/as needed for pain. Sleep is going okay; slept better last night than the first night. He is icing and elevating regularly throughout the day. His goals are to return to pickleball/ normal walking. Functional limitations/aggravating factors include walking, standing, lifting, sleeping, getting in and out the car/bed , squatting, and stairs. He is using his FWW for all mobility. He has started his exercises as well. Was told by doctor he may not have full range of motion return given his many surgeries in the span of one year. Denies numbness or tingling. He will be going back to [place] after the new year, where he will be continuing physical therapy. Pain Comments 1/10 current 4/10 at worst Date of Last Physician Visit 06/16/23 Date of Surgery (If applicable) 06/15/23 Current Work Status Retired Preferred Name [facility] Precautions Treatment Precautions/Contraindications Pulmonary embolus hx CKD (chronic kidney disease) Hx of septic right knee joint Obesity Diabetes mellitus Acid reflux Hyperlipidemia Acute kidney injury Hypertension Gout Weight Bearing Status Weight Bear as Tolerated Objective Other/Pertinent Objective Knee ROM R 0-5-83* with pain Hip ROM Appears to be WFL Strength: Quad set: fair SLR: unable without assist Gait/balance: Ambulates with FWW and use of step-to pattern . Decreased knee flexion on R/ decreased push off. Palpation/joint mobility: Tenderness to palpation/ hypertonicity over quad/ hamstring. Hypertonicity of calf. No TTP over calf. Swelling/observation (unable to visual incision d/t bandage ): Superior patella: R 51 cm Mid patella: R 49 cm Inf patella: R 43 cm Assessment Assessment/Impression Patient is a 78 year-old male who presents to physical therapy for evaluation 2 days s/p right total knee arthroplasty revision and antibiotic spacer removal on 06/15. PMHx significant for four total surgeries on right LE in last 1 year d/t septic prosthesis. Upon assessment, patient demonstrates decreased knee ROM, impaired gait, impaired balance, decreased lower extremity strength, and swelling. All findings as expected. These impairments lead to limitations with walking, squatting, and climbing stairs. Pt will be attending 2 more sessions of PT in [place] prior to relocating back home in [place] and continuing PT there. Patient would benefit from skilled PT to address impairments stated above in order to to perform all functional and recreational activities without significant difficulty or discomfort. Primary Functional Limitations walking, standing, lifting, sleeping, getting in and out the car/bed, squatting, and stairs Plan of Care Rehabilitation Potential Good Physical Therapy Goals In 4-6 visits: 1. Patient will improve knee ROM to > 100 degrees for improved ease of STS transfers . 2. Patient will ambulate with improved mechanics and less than 3/10 knee pain with or without AD >150' for improved household/community mobility. 3. Patient will perform x5 SLR with improved form and strength to improve supine<> sit transfer. Coordination/Communication With Referral Source Treatment Plan/Direct Interventions Gait Training,Joint Mobilization,Manual Therapy, Neuromuscular Re-ed,Self-Care/ Home Management,Therapeutic Activities,Therapeutic Exercises Frequency/Duration 2x/week for 2 weeks, then continue outpatient PT in [place] Patient Will Be Discharged From Therapy Completion of LTG(s), Independent w/HEP, Independently Progressing Evaluation Billing Untimed Code Treatment Minutes 15 Complexity Moderate Certification Information Initial Certification Date 06/17/23 Ending Certification Date 09/10/23 Provider Signature Shows Agreement With POC & Medical Necessity Physician Signature & Date Requested Please Sign/Date Here Physician Comment/Change : Physician NPI Number #
== END 2023-09-17 11:34 | disposition home or self-care (01) ==
PROVIDERS: Visit Provider Orthopaedic Surgery
DX: M25.561 Pain in right knee (principal); Z96.651 Presence of right artificial knee joint; M25.661 Stiffness of right knee, not elsewhere classified; M62.81 Muscle weakness (generalized); R26.2 Difficulty in walking, not elsewhere classified; Z51.89 Encounter for other specified aftercare
CPT/HCPCS: 97110; 97162; J0690; J2371; J2405; J2704

== ENCOUNTER 2024-01-26 09:51 | Outpatient (CLI) | payer MEDICARE, BC, SELFPAY ==
--- OUTSIDE RECORDS SUMMARY | 2024-01-26 10:03 | XMS_ITS | Clinical Summary ---
Author Organization [facility] Address [address] [place] [address] Care Team Providers Care Customer Sales Specialist Name Role Phone MendezChanell wilkerson Catherine THACKER Primary Care Provider Antelmo Gonzalez MD Unavailable [phone] Source Comments This disclosure is being made pursuant to the [employer] program and maynot contain all information available regarding this patient.[facility] Allergies Active Allergy Reactions Criticality Noted Date Comments Hydromorphone Hallucinations Medium 07/12/2023 Vancomycin Rash Low 07/01/2022 Caused BEAN, Angioedema Vancomycin Hcl Swelling High 07/12/2023 Medications Medication Sig Dispensed Refills Start Date End Date Status Continuous Blood Gluc Sensor (FreeStyle Nadira 2 Sensor Systm) [facility] use as directed 06/23/2022 Active glipiZIDE (GLUCOTROL) 10 MG tablet Take 5 mg by mouth daily. 04/09/2022 Active metformin (GLUCOPHAGE) 1000 MG tablet Take 500 mg by mouth daily with breakfast. 04/09/2022 Active propranolol (INDERAL LA) 120 MG 24 hr capsule Take 120 mg by mouth daily. 04/09/2022 Active acetaminophen (TYLENOL ARTHRITIS) 650 MG CR tablet Take 1,300 mg by mouth every 8 (eight) hours as needed for Pain. Active furosemide (LASIX) 20 MG tablet Take 1 tablet by mouth as needed. rarely 06/30/2022 Active sildenafil (VIAGRA) 25 MG tablet Take 25 mg by mouth as needed for Erectile Dysfunction. Active Aflibercept (Eylea) 2 MG/0.05ML SOLN Place 2 mg into the right eye every 12 (twelve) weeks. 01/04/2023 Active Aspirin 81 MG CAPS Take 81 mg by mouth 2 (two) times daily. 04/27/2023 Active irbesartan (AVAPRO) 75 MG tablet TAKE ONE TABLET BY MOUTH DAILY 30 tablet 6 01/03/2024 Active irbesartan (AVAPRO) 75 MG tablet Take 1 (one) tablet by mouth daily. 30 tablet 6 07/12/2023 4 Discontinued warfarin (COUMADIN) 5 MG tablet Take 5 mg by mouth. Take one tablet every Wednesday, Wed and Wednesday and one and one half all other days 09/07/2023 4 Discontinued(* Therapy completed (sends cancel message to pharmacy)) Active Problems Problem Noted Date Diagnosed Date Chronic kidney disease 07/12/2023 Acid reflux 01/13/2023 01/13/2023 Acute kidney injury 01/13/2023 01/13/2023 Arthritis of left knee 01/13/2023 Erectile dysfunction 01/13/2023 01/13/2023 Gout 01/13/2023 01/13/2023 Overview (01/13/2023): Records from Dr. Riley Diane, [facility] Hyperlipidemia 01/13/2023 01/13/2023 Overview (01/13/2023): Records from Dr. Riley Diane, [facility] Hypertension 01/13/2023 01/13/2023 Overview (01/13/2023): Records from Dr. Riley Diane, [facility] Osteoarthritis of right knee 01/13/2023 Obesity 01/13/2023 01/13/2023 Overview (01/13/2023): Records from Dr. Riley Diane, [facility] Shoulder joint pain 01/13/2023 01/13/2023 Type 2 diabetes mellitus 01/13/2023 023 Overview (01/13/2023): Records from Dr. Riley Diane, 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 (Primary Dx) 01/03/2024 Refill [facility] [place] [address] [place] [address] Concepcion Serrano MD 01/02/2024 Travel 12/27/2023 Orders Only [facility] Nephrology [address] [phone] Mable Mon, BURN TABLE OPERATOR Type 2 diabetes mellitus with stage 3a chronic kidney disease, without long-term current use of insulin from Last 3 Months Family History Medical History Relation Name Comments Hypertension Brother No Known Problems Sister Relation Name Status Comments Brother Father Mother Sister Social History Tobacco Use Types Packs/Day Years Used Date Smoking Tobacco: Never Smokeless Tobacco: Never Tobacco Cessation:Counseling Given: Not Answered Alcohol Use Standard Drinks/Week Comments Yes 0 (1 standard drink = 0.6 oz pur e alcohol) 1-2 drinks per year PHQ-2 Answer Date Recorded PHQ-2 Score 0 09/29/2023 Sex and Gender Information Value Date Recorded Sex Assigned at Not on file Gender Identity Not on file Sexual Orientation Not on file Job Start Date Occupation Industry Not on file Not on file Not on file Last Filed Vital Signs Vital Sign Reading Time Taken Comments Blood Pressure 118/78 01/03/2024 9:04 AM CDT Pulse 60 01/03/2024 9:04 AM CDT Temperature - - Respiratory Rate - - Oxygen Saturation - - Inhaled Oxygen Concentration - - Weight 102.3 kg (225 lb 9.6 oz) 01/03/2024 9:04 AM CDT Height 170.2 cm (5' 7) 01/03/2024 9:04 AM CDT Body Mass Index 35.33 01/03/2024 9:04 AM CDT Plan of Treatment Health Maintenance Due Date Last Done Comments Lab-Hepatitis C Screening 1945 Lab-Lipids 1946 Lab-HgA1C 1951 Pneumococcal Vaccines 65+ (1 of 2 - PCV) 1952 Eye (Ophthalmology) Exam 1956 Foot Exam 1956 Tetanus/Pertussis Vaccine Teen/Adult (1 - Tdap) 1965 Zoster (Shingles) Vaccine 50+ (1 of 2) 1996 RSV Adult (1 - 1-dose 60+ series) 2006 First Medicare Annual Wellness (AWV) 04/27/2012 COVID-19 Vaccine ( season) 2023 03/11/2022, 10/24/2021, 04/25/2021, Additional history exists Influenza Vaccine (#1) 2024 , 03/23/2022, 04/03/2021, Additional history exists Lab-Urine Microalbumin 12/26/2024 12/27/2023, 2023 HIB Vaccine Aged Out No longer eligi ble based on patient's age to complete this topic HPV Vaccine (F:9-26YO,M: 9-22) Aged Out No longer eligible based on patient's age to complete this topic Hepatitis A Vaccine Aged Out No longe r eligible based on patient's age to complete this topic IPV Vaccine Aged Out No longer eligi ble based on patient's age to complete this topic Meningococcal Conjugate Vaccine Aged Out No longer eligible based on patient's age to complete this topic RSV < 20 Months Aged Out No longer el igible based on patient's age to complete this topic Goals Goal Patient Goal Type Associated Problems Recent Progress Patient-Stated? Author Blood Pressure < 140/90 Blood Pressure 118/78(2023 9:04 AM CDT) No Emmy Bunch RN HEMOGLOBIN A1C < 7.0 Result Component No Concepcion Serrano MD Note: No results found for: HGBA1C Procedures Procedure Name Priority Date/Time Associated Diagnosis Comments CBC (HEMOGRAM) Routine 12/27/2023 1:34 PM CDT Type 2 diabetes mellitus with stage 3a chronic kidney disease, without long-term current use of insulin PROTEIN / CREATININE RATIO, URINE Routine 12/27/2023 1:34 PM CDT Type 2 diabetes mellitus with stage 3a chronic kidney disease, without long-term current use of insulin RENAL FUNCTION PANEL Routine 12/27/2023 1:34 PM CDT Type 2 diabetes mellitus with stage 3a chronic kidney disease, without long-term current use of insulin from Last 3 Months Results * Protein / creatinine ratio, urine (12/27/2023 1:34 PM CDT) Protein, UR 14 EXTERNAL NON UPH - NO INTERFACE ME-CREATININE URINE 167.9 mg/dL EXTERNAL NON UPH - NO INTERFACE ME-PROT/CREAT RATIO, UR 0.08 EXTERNAL NON UPH - NO INTERFACE Urine 12/27/2023 1:34 PM CDT Concepcion Serrano MD URINE ORDERABLES Performing Organization Address [facility] de Phone Number EXTERNAL NON UPH - NO INTERFACE * CBC (Hemogram) (12/27/2023 1:34 PM CDT) WBC Count 10.6 10*3/uL EXTERNAL N ON UPH - NO INTERFACE RBC 4.08 10^6/??L EXTERNAL N ON UPH - NO INTERFACE Hemoglobin 11.5 g/dL EXTERNAL NON UPH - NO INTERFACE Hematocrit 36.3 % EXTERNAL NON UPH - NO INTERFACE MCV 89 fL EXTERNAL N ON UPH - NO INTERFACE MCH 28.2 pg EXTERNAL N ON UPH - NO INTERFACE MCHC 31.7 g/dL EXTERNAL N ON UPH - NO INTERFACE RDW 14.0 % EXTERNAL N ON UPH - NO INTERFACE Platelets 377 K/??L EXTERNAL N ON UPH - NO INTERFACE MPV 9 fL EXTERNAL N ON UPH - NO INTERFACE Blood 12/27/2023 1:34 PM CDT Concepcion Serrano MD LAB BLOOD ORDERABLES EXTERNAL NON UPH - NO INTERFACE * Renal function panel (12/27/2023 1:34 PM CDT) Sodium, Blood 138 mmol/L EDITOR CONTINUITY AND SCRIPT AL NON UPH - NO INTERFACE Potassium, Blood 4.6 mmol/L EXTERNAL NON UPH - NO INTERFACE Chloride 98 mmol/L EXTERNAL N ON UPH - NO INTERFACE CO2, Blood 28 mmol/L EXTERNAL NON UPH - NO INTERFACE Calcium 9.7 mg/dL EXTERNAL N ON UPH - NO INTERFACE Phosphorus, Blood 5.1 mg/dL EXTERNAL NON UPH - NO INTERFACE BUN 36 mg/dL EXTERNAL N ON UPH - NO INTERFACE Creatinine, Serum 1.40 mg/dL EXTERNAL NON UPH - NO INTERFACE Albumin, Blood 3.8 g/dL EXTER NAL NON UPH - NO INTERFACE Glucose, Blood 116 mg/dL EXTER NAL NON UPH - NO INTERFACE eGFR, non- 49 EXTERNAL NON UPH - NO INTERFACE eGFR, 60 EXTERNAL NON UPH - NO INTERFACE Anion Gap 12 mmol/L EXTERNAL N ON UPH - NO INTERFACE Blood 12/27/2023 1:34 PM CDT Concepcion Serrano MD LAB BLOOD ORDERABLES EXTERNAL NON UPH - NO INTERFACE from Last 3 Months Care Teams Customer Sales Specialist Relationship Specialty Start Date End Date Chanell Mendez ARNP PCP - General Family Medicine 11/13/21 Antelmo Gonzalez MD [address] [facility] [address] [place] [address] Senior Stereo Compiler Team Lead Cardiology 09/30/23
--- OUTSIDE RECORDS SUMMARY | 2024-01-26 10:04 | XMS_ITS | Encounter Summary ---
Author Organization [facility] Address [address] [place] [address] Care Team Providers Care Coat Maker Name Role Phone hCanell Mendez KEDAR Primary Care Provider Antelmo Gonzalez MD Unavailable [phone] Reason for Visit * Reason Comments Medication Refill Encounter Details Date Type Department Care Team (Late st Contact Info) Description 01/03/2024 Refill [facility] [place] [address] [place], [place] [id number] Concepcion Serrano MD [address] [address] Social History Tobacco Use Types Packs/Day Years Used Date Smoking Tobacco: Never Smokeless Tobacco: Never Alcohol Use Standard Drinks/Week Comments Yes 0 [...] file Not on file Not on file documented as of this encounter Plan of Treatment Not on file documented as of this encounter Goals Goal Patient Goal Type Associated Problems Recent Progress Patient-Stated? Author Blood Pressure < 140/90 Blood Pressure 118/78(2023 9:04 AM CDT) No Emmy Bunch, RN HEMOGLOBIN A1C < 7.0 Result Component No Concepcion Serrano MD Note: No results found for: HGBA1C documented as of this encounter Visit Diagnoses Not on filedocumented in this encounter Care Teams Coat Maker Relationship Specialty Start Date End Date Chanell Mendez ARNP PCP - General Family Medicine 11/13/21 Antelmo Gonzalez MD [address] [place] [address] Nurse School Cardiology 09/30/23 documented as of this encounter
--- OUTSIDE RECORDS SUMMARY | 2024-01-26 10:04 | XMS_ITS | Encounter Summary ---
Author Organization [facility] Address [address] [place] [address] Care Team Providers Care Rock Crushing Machine Operator Name Role Phone Chanell Mendez Primary Care Provider Antelmo Gonzalez MD Unavailable Encounter Details Date Type Department Care Team (Latest Contact Info) Description 01/02/2024 Travel Social History Tobacco Use Types Packs/Day Years [...] on filedocumented in this encounter Care Teams Rock Crushing Machine Operator Relationship Specialty Start Date End Date Chanell Mendez ARNP PCP - General Family Medicine 11/13/21 Antelmo Gonzalez MD [address] [facility] [address] [place] [id number] Financial Aids Officer Cardiology 09/30/23 documented as of this encounter
--- OUTSIDE RECORDS SUMMARY | 2024-01-26 10:04 | XMS_ITS | Encounter Summary ---
Author Organization [facility] Address [address] [place] [address] Care Team Providers Care Computer Tape Librarian Name Role Phone Chanell Mendez Catherine THACKER Primary Care Provider [phone] Antelmo Gonzalez MD Unavailable [phone] Reason for Visit * Reason Comments Follow-up 6 months Encounter Details Date Type Department Care Team (Late st Contact Info) Description 01/03/2024 9:00 AM CDT Office Visit [facility] Nephrology [place] [address] [place] [address] Concepcion Serrano MD [address] [address] Hypertensive nephrosclerosis, 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 As your health cattle care worker, we want you to know how important your routine care is. Keeping your care current can improve your overall health and wellness and increase your chance of catching issues early. We encourage you to make your health a priority today. While some of these measures may have been addressed today, we request you contactyour Primary Care provider (Chanell Mendez ARNP) and make an appointment to follow up on any of following items not addressed today: Your weight is not at a desirable range as indicated by your BMI (Body Mass Index) measurement: Body mass index is 35.33 kg/m??.. We recommend screening for Risk of Falling to all of our patients. You have not had all of the [facility] recommended pneumonia vaccines (Prevnar-13 &/or Pneumovax-23). documented in this encounter Progress Notes * Concepcion Serrano MD - 01/03/2024 9:00 AM CDT Images from the original note were not included. Nephrology Follow up Note Facility: [facility] Name: Eddie Bearden Subjective Chief Complaint: Hypertensive and diabetic nephropathy HPI: Mr. Bearden is a very pleasant 78-year-old gentleman with a diabetes mellitus type 2, hypertension and history of right total knee replacement with infection requiring 4 different surgeries. Patient reports that he does not have any more infection in the knee and his spacer was extracted in May. Since then he gets edema in the knee whenever he exerts although he has not noticed any lower extremity edema. Blood sugars have been in good range and he feels well overall and has not had any symptoms of accelerated hypertension. Past Medical History: Diagnosis Date Arthritis left knee Chronic kidney disease BEAN from Vancomyacin CKD (chronic kidney disease), stage III Diabetes mellitus type 2 Erectile dysfunction GERD (gastroesophageal reflux disease) Gout History of total right knee replacement Hyperlipidemia Hypertension Irregular heart rate Obesity Osteoarthritis right knee Shoulder joint pain Past Surgical History: Procedure Laterality Date Appendectomy Arthroplasty Bilateral Knee Cataract extraction Cholecystectomy Colonoscopy 12/01/2016 repeat 2021 Knee surgery 06/15/2023 Social History Tobacco Use Smoking status: Never Smokeless tobacco: Never Substance Use Topics Alcohol use: Yes Comment: 1-2 drinks per year Family History Problem Relation Age of Onset No Known Problems Sister Hypertension Brother Objective Vitals: 01/03/24 0904 BP: 118/78 Pulse: 60 Admit weight: Weight: 102.3 kg (225 lb 9.6 oz) Wt Readings from Last 2 Encounters: 01/03/24 102.3 kg (225 lb 9.6 oz) 09/30/23 103.9 kg (229 lb) Physical Exam Physical Exam General: Alert and Oriented, no acute distress HEENT: atraumatic normocephalic head, anicteric sclera, mucous membranes moist, Neck: supple, no cervical lymphadenopathy, Lungs: CTAB, no respiratory distress or retractions. No wheezing. Heart: RRR, no murmur or extra heart sounds auscultated. Abd: Soft, nontender, nondistended, Ext: Pulses Positive, no lower extremity edema. Diagnostics CBC Lab Results Component Value Date/Time WBC 10.6 12/27/2023 01:34 PM HGB 11.5 12/27/2023 01:34 PM PLT 377 12/27/2023 01:34 PM MCV 89 12/27/2023 01:34 PM Hemoglobin Date/Time Value Ref Range Status 12/27/2023 01:34 PM 11.5 g/dL Final 07/09/2023 12:00 AM 11 (A) 13.5 - 17 g/dL Final CHEM Lab Results Component Value Date BUN 36 12/27/2023 CREATININE 1.40 12/27/2023 Lab Results Component Value Date CREATININE 1.40 12/27/2023 CREATININE 1.40 (A) 07/09/2023 CREATININE 1.60 01/05/2023 Other CKD pertinent labs No results found for: FERRITIN No results found for: PTH No results found for: HGBA1C No results found for: LDL, CHOL, TRIG, HDL, URICACID, CRP, SEDRATE, TSH Assessment and Plan Patient Active Problem List Diagnosis Date Noted Chronic kidney disease 07/12/2023 Acid reflux 01/13/2023 Acute kidney injury 01/13/2023 Arthritis of left knee 01/13/2023 Erectile dysfunction 01/13/2023 Gout 01/13/2023 Hyperlipidemia 01/13/2023 Hypertension 01/13/2023 Osteoarthritis of right knee 01/13/2023 Obesity 01/13/2023 Shoulder joint pain 01/13/2023 Type 2 diabetes mellitus 01/13/2023 #1 diabetes mellitus type 2 with Chronic Kidney Disease Stage III A currently stable. Patient's volume status is acceptable and recommend to continue with the current medications. 2. Hypertension controlled and proteinuria is minimal. Patient has tolerated addition of irbesartanvery well. Patient will be seen in our clinic on a as needed basis, recommend to check kidney function and urine protein creatinine ratio at least once a year. Consider adding SGLT2 inhibitor in patient's regimen in the future. Home Meds: Prior to Admission medications Medication Sig Start Date End Date Taking? Authorizing Provider acetaminophen (TYLENOL ARTHRITIS) 650 MG CR tablet Take 1,300 mg by mouth every 8 (eight) hours as needed for Pain. Yes Provider, Not In System Aflibercept (Eylea) 2 MG/0.05ML SOLN Place 2 mg into the right eye every 12 (twelve) weeks. 01/04/23Yes Provider, Not In System Aspirin 81 MG CAPS Take 81 mg by mouth 2 (two) times daily. 04/27/23 Yes Provider, Not In System Continuous Blood Gluc Sensor (FreeStyle Nadira 2 Sensor Systm) MISC use as directed 06/23/22 Yes Provider, Not In System furosemide (LASIX) 20 MG tablet Take 1 tablet by mouth as needed. rarely 06/30/22 Yes Provider, Not In System glipiZIDE (GLUCOTROL) 10 MG tablet Take 5 mg by mouth daily. 04/09/22 Yes Provider, Not In System irbesartan (AVAPRO) 75 MG tablet TAKE ONE TABLET BY MOUTH DAILY 01/03/24 Yes Concepcion Serrano MD metformin (GLUCOPHAGE) 1000 MG tablet Take 500 mg by mouth daily with breakfast. 04/09/22 Yes Provider, Not In System propranolol (INDERAL LA) 120 MG 24 hr capsule Take 120 mg by mouth daily. 04/09/22 Yes Provider, Not In System sildenafil (VIAGRA) 25 MG tablet Take 25 mg by mouth as needed for Erectile Dysfunction. Yes Provider, Not In System Allergies: Allergies Allergen Reactions Vancomycin Hcl Swelling Hydromorphone Hallucinations Vancomycin Rash Caused BEAN, Angioedema Concepcion Serrano MD documented in this encounter Plan of Treatment Not on file documented as of this encounter Goals Goal Patient Goal Type Associated Problems Recent Progress Patient-Stated? 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
--- OUTSIDE RECORDS SUMMARY | 2024-01-26 10:04 | XMS_ITS | Encounter Summary ---
Author Organization [facility] Address [address] [place] [address] Care Team Providers Care Apartment Leasing Manager Name Role Phone Chanell Mendez Catherine THACKER Primary Care Provider [phone] Antelmo Gonzalez MD Unavailable [phone] Encounter Details Date Type Department Care Team (Late st Contact Info) Description 12/27/2023 Orders Only [facility] Nephrology [address] [place] [address] Mable Mon, CHEMISTRY SPECIALIST [address] [place] [address] Type 2 diabetes mellitus with stage 3a chronic kidney disease, without long-term current use of insulin Social History Tobacco Use Types Packs/Day Years [...] for: HGBA1C documented as of this encounter Procedures Procedure Name Priority Date/Time Associated Diagnosis Comments PROTEIN / CREATININE RATIO, URINE Routine 12/27/2023 1:34 PM CDT Type 2 diabetes mellitus with stage 3a chronic kidney disease, without long-term current use of insulin CBC (HEMOGRAM) Routine 12/27/2023 1:34 PM CDT Type 2 diabetes mellitus with stage 3a chronic kidney disease, without long-term current use of insulin RENAL FUNCTION PANEL Routine 12/27/2023 1:34 PM CDT Type 2 diabetes mellitus with stage 3a chronic kidney disease, without long-term current use of insulin documented in this encounter Results * CBC (Hemogram) (12/27/2023 1:34 PM CDT) [...] EXTERNAL NON UPH - NO INTERFACE * Protein / creatinine ratio, urine (12/27/2023 1:34 PM CDT) Protein, UR 14 EXTERNAL NON UPH - NO INTERFACE ME-CREATININE URINE 167.9 mg/dL EXTERNAL NON UPH - NO INTERFACE ME-PROT/CREAT RATIO, UR 0.08 EXTERNAL NON UPH - NO INTERFACE Urine 12/27/2023 1:34 PM CDT Concepcion Serrano MD URINE ORDERABLES Performing Organization Address [facility] Co de Phone Number EXTERNAL NON UPH - NO INTERFACE * Renal function panel (12/27/2023 1:34 PM CDT) Sodium, Blood 138 mmol/L TELETYPE OR VARITYPE KEYBOARD OPERATOR AL NON UPH - NO INTERFACE Potassium, [...] CDT Concepcion Serrano MD LAB BLOOD ORDERABLES Performing Organization Address [facility] Co de Phone Number EXTERNAL NON UPH - NO INTERFACE documented in this encounter Visit Diagnoses Diagnosis Type 2 diabetes mellitus with stage 3a chronic kidney disease, without long-term current use of insulin documented in this encounter Care Teams Apartment Leasing Manager Relationship Specialty Start Date End Date Chanell Mendez ARNP PCP - General Family Medicine 11/13/21 [place] [address] Woodwind Reeds Cutter Cardiology 09/30/23 documented as of this encounter
--- NOTE | 2024-01-26 10:15 | CRLHL7_ITS ---
For Patients: As a result of the Century Cures Act, medical imaging exams and procedure reports are released immediately into your electronic medical record. You may view this report before your referring provider. If you have questions, please contact your health care provider. Indication: rt knee pain and swelling x 2 weeks. Technique: Real-time longitudinal and transverse sonographic grayscale imaging with and without compression, as well as color and duplex Doppler imaging before and after augmentation, was obtained of the deep system of the right lower extremity, including the common femoral, femoral, popliteal, posterior tibial, and peroneal veins. Comparison: None. Findings: Common femoral vein: No evidence of thrombus. Femoral vein: No evidence of thrombus. Popliteal vein: No evidence of thrombus. Calf veins: Patent. Impression: No ultrasound evidence of deep venous thrombosis. Dictated by Rishabh Mcallister MD @ 01/26/2024 11:31:48 AM (Electronically Signed)
== END 2024-01-26 09:52 | disposition home or self-care (01) ==
PROVIDERS: Visit Provider Orthopaedic Surgery
DX: I82.401 Acute embolism and thrombosis of unspecified deep veins of right lower extremity (principal); M25.561 Pain in right knee; R22.41 Localized swelling, mass and lump, right lower limb
CPT/HCPCS: 93971

== ENCOUNTER 2024-02-09 14:45 | Outpatient (CLI) | payer MEDICARE, BC, SELFPAY ==
--- OUTSIDE RECORDS SUMMARY | 2024-02-09 15:05 | XMS_ITS | Clinical Summary ---
Author Organization [facility] Address [address] [place] [address] Care Team Providers Care Residential Sales Consultant Name Role Phone MendezChanell wilkerson Catherine THACKER Primary Care Provider Antelmo Gonzalez MD Unavailable [phone] Source Comments This disclosure is being made pursuant to the [employer] program and maynot contain all information available regarding this patient.[facility] Allergies Active Allergy Reactions Criticality Noted Date Comments Hydromorphone Hallucinations Medium 07/12/2023 Vancomycin Rash Low 07/01/2022 Caused BEAN, Angioedema Vancomycin Hcl Swelling High 07/12/2023 Medications Medication Sig Dispensed Refills Start Date End Date Status Continuous Blood Gluc Sensor (FreeStyle Nadira 2 Sensor Systm) [facility] as directed 06/23/2022 A ctive glipiZIDE (GLUCOTROL) 10 MG tablet Take 5 [...] MOUTH DAILY 30 tablet 6 01/03/2024 Active Active Problems Problem Noted Date Diagnosed Date Chronic kidney disease 07/12/2023 Acid reflux 01/13/2023 01/13/2023 Acute kidney injury 01/13/2023 01/13/2023 Arthritis of left knee 01/13/2023 Erectile dysfunction 01/13/2023 01/13/2023 Gout 01/13/2023 01/13/2023 Overview (01/13/2023): Records from Dr. Riley Diane, [facility] Hyperlipidemia 01/13/2023 01/13/2023 Overview (01/13/2023): Records from Dr. Riley Diane, [facility] Hypertension 01/13/2023 01/13/2023 Overview (01/13/2023): Records from Dr. Riley Diane, [facility] Osteoarthritis of right knee 01/13/2023 Obesity 01/13/2023 01/13/2023 Overview (01/13/2023): Records from Dr. Riley Diane, [facility] Shoulder joint pain 01/13/2023 01/13/2023 Type 2 diabetes mellitus 01/13/2023 023 Overview (01/13/2023): Records from Dr. 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 (Primary Dx) 01/03/2024 Refill [facility] [place] [address] [place] [address] Concepcion Serrano MD 01/02/2024 Travel 12/27/2023 Orders Only [facility] Nephrology [address] [facility] [address] [place] [address] Mable Mon, AIRCRAFT MANAGER Type 2 diabetes mellitus with stage 3a [...] Serrano MD URINE ORDERABLES Performing Organization Address [facility] Co de Phone Number EXTERNAL [...] 1:34 PM CDT) Sodium, Blood 138 mmol/L NETWORK SOLUTIONS ARCHITECT AL NON UPH - NO INTERFACE Potassium, [...] INTERFACE from Last 3 Months Care Teams Residential Sales Consultant Relationship Specialty Start Date End Date Chanell Mendez ARNP PCP - General Family Medicine 11/13/21 Antelmo Gonzalez MD [facility] [address] [place] [address] Lithographers Printer Cardiology 09/30/23
--- OUTSIDE RECORDS SUMMARY | 2024-02-09 15:05 | XMS_ITS | Encounter Summary ---
Author Organization [facility] Address [address] [place] [address] Care Team Providers Care Corporate Safety Director Name Role Phone Chanell Mendez Primary Care [...] on filedocumented in this encounter Care Teams Corporate Safety Director Relationship Specialty Start Date End Date Chanell Mendez ARNP PCP - General Family Medicine 11/13/21 Antelmo Gonzalez MD [address] [facility] [address] [place] [id number] Automatic Folder Seamer Cardiology 09/30/23 documented as of this encounter
--- OUTSIDE RECORDS SUMMARY | 2024-02-09 15:05 | XMS_ITS | Encounter Summary ---
Author Organization [facility] Address [address] [place] [address] Care Team Providers Care Rum Processing Operator Name Role Phone Chanell Mendez Catherine THACKER Primary Care Provider Antelmo Gonzalez MD Unavailable [phone] Encounter Details Date Type Department Care Team (Late st Contact Info) Description 12/27/2023 Orders Only [facility] Nephrology [address] [place] [address] Mable Mon, JUICE STANDARDIZER [address] [place] [address] Type 2 diabetes mellitus with [...] Serrano MD URINE ORDERABLES Performing Organization Address [facility] Co de Phone Number EXTERNAL NON UPH - NO INTERFACE * Renal function panel (12/27/2023 1:34 PM CDT) Sodium, Blood 138 mmol/L EQUINE BREEDER AL NON UPH - NO INTERFACE Potassium, [...] MD LAB BLOOD ORDERABLES Performing Organization Address [facility] Co de Phone Number EXTERNAL NON UPH - NO INTERFACE documented in this encounter Visit Diagnoses Diagnosis Type 2 diabetes mellitus with stage 3a chronic kidney disease, without long-term current use of insulin documented in this encounter Care Teams Rum Processing Operator Relationship Specialty Start Date End Date Chanell Mendez ARNP PCP - General Family Medicine 11/13/21 [place] [address] Planer Setup Operator Cardiology 09/30/23 documented as of this encounter
--- OUTSIDE RECORDS SUMMARY | 2024-02-09 15:05 | XMS_ITS | Encounter Summary ---
Author Organization [facility] Address [address] [place] [address] Care Team Providers Care Business Analytics Specialist Name Role Phone Chanell Mendez KEDAR Primary Care Provider Antelmo Gonzalez MD Unavailable [phone] Reason for Visit * Reason Comments Medication Refill Encounter Details Date Type Department Care Team (Late st Contact Info) Description 01/03/2024 Refill [facility] [place] [address] [place], [place] [phone] Concepcion Serrano MD [address] [address] Social History Tobacco Use Types [...] on filedocumented in this encounter Care Teams Business Analytics Specialist Relationship Specialty Start Date End Date Chanell Mendez ARNP PCP - General Family Medicine 11/13/21 Antelmo Gonzalez MD [address] [place] [address] Cash Management Specialist Cardiology 09/30/23 documented as of this encounter
--- OUTSIDE RECORDS SUMMARY | 2024-02-09 15:05 | XMS_ITS | Encounter Summary ---
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 As your health child care specialist, we want you to know how important [...] You have not had all of the [facility] recommended pneumonia vaccines (Prevnar-13 &/or Pneumovax-23). documented [...] Primary documented in this encounter Care Teams Windows Server Architect Relationship Specialty Start Date End Date Chanell Mendez ARNP PCP - General Family Medicine 11/13/21 Antelmo Gonzalez MD [address] [place] [address] Pit Operator Cardiology 09/30/23 documented as of this encounter
== END 2024-02-09 14:46 | disposition home or self-care (01) ==
PROVIDERS: Visit Provider Orthopaedic Surgery
DX: T84.53XA Infection and inflammatory reaction due to internal right knee prosthesis, initial encounter (principal); Z96.651 Presence of right artificial knee joint
CPT/HCPCS: 87070; 87075; 87186; 87205; 89060

== ENCOUNTER 2024-02-24 18:03 | Inpatient (IN) | payer MEDICARE, BC, SELFPAY ==
[2024-02-24] VITALS (18 sets, daily range): BP systolic 127–147; BP diastolic 50–92; PULSE 60–77; RESP 14–18; TEMP 36.1–36.6; O2SAT 96–100; BMI 36.1
--- OUTSIDE RECORDS SUMMARY | 2024-02-24 11:42 | XMS_ITS | Clinical Summary ---
Author Organization [facility] [employer] Address [address] [place] [address] Care Team Providers Care Tire Retreader Name Role Phone MendezChanell wilkerson Catherine THACKER Primary Care Provider Antelmo Gonzalez MD Unavailable [phone] Source Comments This disclosure is being made pursuant to the [employer] program and maynot contain all information available regarding this patient.[facility] Allergies Active Allergy Reactions Criticality Noted Date Comments Hydromorphone Hallucinations Medium 07/12/2023 Vancomycin Rash Low 07/01/2022 Caused BEAN, Angioedema Vancomycin Hcl Swelling High 07/12/2023 Medications Medication Sig Dispensed Refills Start Date End Date Status Continuous Blood Gluc Sensor (FreeStyle Nadira 2 Sensor Systm) [facility] use as directed 06/23/2022 A ctive [...] Overview (01/13/2023): Records from Dr. Riley Diane, [facility] Hyperlipidemia 01/13/2023 01/13/2023 Overview (01/13/2023): Records from Dr. Riley Diane, [facility] Hypertension 01/13/2023 01/13/2023 Overview (01/13/2023): Records from Dr. Riley Diane, [facility] Osteoarthritis of right knee 01/13/2023 Obesity 01/13/2023 01/13/2023 Overview (01/13/2023): Records from Dr. Riley Diane, [facility] Shoulder joint pain 01/13/2023 01/13/2023 Type 2 diabetes mellitus 01/13/2023 023 Overview (01/13/2023): Records from Dr. 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 [address] [place] [address] Mable Mon, CHEF SAUCIER Type 2 diabetes mellitus with stage 3a [...] Serrano MD URINE ORDERABLES Performing Organization Address City/[facility] Co de Phone Number EXTERNAL NON UPH [...] 1:34 PM CDT) Sodium, Blood 138 mmol/L HORTICULTURAL MANAGER AL NON UPH - NO INTERFACE Potassium, [...] INTERFACE from Last 3 Months Care Teams Tire Retreader Relationship Specialty Start Date End Date Chanell Mendez ARNP PCP - General Family Medicine 11/13/21 Antelmo Gonzalez MD [facility] [address] [place] [address] Erisa Attorney Cardiology 09/30/23
--- OUTSIDE RECORDS SUMMARY | 2024-02-24 11:42 | XMS_ITS | Patient Health Record ---
Author Organization [facility] Address [address] [place], [place] [address] Care Team Providers Care Admissions Officer Name Role Phone JARRETT JOHNSON Primary Care Provider Kaylee lawson ALLERGIES Allergen (clinical drug ingredient) Drug/Non Drug [...] total right knee replacement (Z96.651) Active confirmed [id number] Problem Right shoulder pain, unspecified chronicity (M25.511) Active confirmed 15230751 Problem Left shoulder pain, unspecified chronicity (M25.512) Active confirmed 03100026 Problem Arthritis of left knee (M17.12) Active confirmed [id number] Problem Osteoarthritis of right knee, unspecified osteoarthritis type (M17.11) Active confirmed [id number] Problem History of knee surgery (Z98.890) Active confirmed History of knee surgery (897412769) Problem Failed total right knee replacement, 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
--- OUTSIDE RECORDS SUMMARY | 2024-02-24 11:43 | XMS_ITS | Encounter Summary ---
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 As your health manager wound care, we want you to know how important [...] You have not had all of the [facility] recommended pneumonia vaccines (Prevnar-13 &/or Pneumovax-23). documented [...] Primary documented in this encounter Care Teams Vegetable Sorter Relationship Specialty Start Date End Date Chanell Mendez ARNP PCP - General Family Medicine 11/13/21 Antelmo Gonzalez MD [address] [place] [address] Bellows Assembler Cardiology 09/30/23 documented as of this encounter
--- OUTSIDE RECORDS SUMMARY | 2024-02-24 11:43 | XMS_ITS | Encounter Summary ---
Author Organization [facility] Address [address] [place] [address] Care Team Providers Care Tub Chucker Name Role Phone Chanell Mendez KEDAR Primary Care Provider Antelmo Gonzalez MD Unavailable [phone] Reason for Visit * Reason Comments Medication Refill Encounter Details Date Type Department Care Team (Late st Contact Info) Description 01/03/[address] [facility] Diabetes [facility] [place] [address] [place], [place] [phone] Concepcion Serrano MD [address] [address] Social History Tobacco Use Types [...] on filedocumented in this encounter Care Teams Tub Chucker Relationship Specialty Start Date End Date Chanell Mendez ARNP PCP - General Family Medicine 11/13/21 Antelmo Gonzalez MD [address] [place] [address] Svp Group Director Cardiology 09/30/23 documented as of this encounter
--- OUTSIDE RECORDS SUMMARY | 2024-02-24 11:43 | XMS_ITS | Encounter Summary ---
Author Organization [facility] Address [address] [place] [address] Care Team Providers Care Pole Shaver Helper Name Role Phone Chanell Mendez Catherine THACKER Primary Care Provider Antelmo Gonzalez MD Unavailable [phone] Encounter Details Date Type Department Care Team (Late st Contact Info) Description 12/27/2023 Orders Only [facility] Nephrology [address] [place] [address] Mable Mon, SOIL FIELD TECHNICIAN [address] [place] [address] Type 2 diabetes mellitus with [...] Serrano MD URINE ORDERABLES Performing Organization Address [facility] Co de Phone Number EXTERNAL NON UPH - NO INTERFACE * Renal function panel (12/27/2023 1:34 PM CDT) Sodium, Blood 138 mmol/L PANEL RAISER OPERATOR AL NON UPH - NO INTERFACE [...] MD LAB BLOOD ORDERABLES Performing Organization Address [facility] Co de Phone Number EXTERNAL NON UPH - NO INTERFACE documented in this encounter Visit Diagnoses Diagnosis Type 2 diabetes mellitus with stage 3a chronic kidney disease, without long-term current use of insulin documented in this encounter Care Teams Pole Shaver Helper Relationship Specialty Start Date End Date Chanell Mendez ARNP PCP - General Family Medicine 11/13/21 [place] [address] Trimming Machine Set Up Operator Cardiology 09/30/23 documented as of this encounter
--- OUTSIDE RECORDS SUMMARY | 2024-02-24 11:43 | XMS_ITS | Encounter Summary ---
Author Organization [facility] Address [address] [place] [address] Care Team Providers Care Chief Underwriter Name Role Phone Chanell Mendez Primary Care [...] on filedocumented in this encounter Care Teams Chief Underwriter Relationship Specialty Start Date End Date Chanell Mendez ARNP PCP - General Family Medicine 11/13/21 Antelmo Gonzalez MD [address] [facility] [address] [place] [phone] Client Success Director Cardiology 09/30/23 documented as of this encounter
[2024-02-24] MEDS: SODIUM CHLORIDE 0.9 % (FLUSH) 10 ML SYRINGE IVF (12:20)
[2024-02-24] MEDS: LACTATED RINGERS 1000 ML 1,000 ML 100 ML IV ×2 (12:20→15:14)
[2024-02-24] MEDS: CEFAZOLIN 2 GM INJ IVP (14:02)
--- NOTE | 2024-02-24 15:42 | W.ANESCHARGE ---
Anesthesia Charges Start Date/Time Anesthesia Start Date: 02/24/24 Anesthesia Start Time: 13:44 Stop Date/Time Anesthesia Stop Date: 02/24/24 Anesthesia Stop Time: 16:11 Summary Extremes of Age - Over 70 or under 1: MDA
--- NOTE | 2024-02-24 16:05 | PM.ORPRC ---
Procedure Note Date of procedure: 02/24/24 Procedure: PREOPERATIVE DIAGNOSIS: Septic right total knee arthroplasty POSTOPERATIVE DIAGNOSIS: Septic right total knee arthroplasty NAME OF OPERATION: Right total knee arthroplasty irrigation and debridement, poly exchange SURGEON: Miguel Tanner MD TELEPRINTER INSTALLER: CHIDI Hunt OPA ANESTHESIA: Spinal ESTIMATED BLOOD LOSS: 0 mL COMPLICATIONS: None SPECIMENS: Gram stain, Aerobic and anaerobic cultures x3 labeled superficial, deep and right knee synovium DRAINS: None PREOPERATIVE ANTIBIOTICS: Ancef 2 grams IMPLANTS: 1. J&J attune #8, 16 mm posterior stabilized polyethylene INDICATIONS: The patient is well known. He had a previously infected right total knee arthroplasty. This was treated with a two-stage exchange. He has done well up until several weeks ago he developed cellulitis over his tibia. This has come to an area of fluctuance over the pes anserinus. Despite 3 weeks of Keflex the area persists. Therefore, irrigation and debridement of the skin lesion was recommended. I told the patient that his knee is infected, until proven otherwise. I told him that this area of fluctuance likely communicates with the knee. Therefore, we discussed irrigation and debridement of his knee with poly exchange as well. The risks, benefits and expected outcomes were discussed in detail. These included but were not limited to: Infection, bleeding, injury to blood vessel or nerve, venous thromboembolism. All questions were answered to their satisfaction. Use of an hotel assistant general manager was necessary throughout the case for patient positioning and safety, soft tissue retraction, and closure. PROCEDURE: Spinal anesthesia was administered. The patient was placed supine on the operating table. The hotel assistant general manager made sure the patient was positioned appropriately. The lower extremity was prepped and draped in the usual sterile fashion. The limb was exsanguinated with the Deshawn bandage. The pneumatic tourniquet was inflated to 300 mmHg. We utilized the distal 25% of his total knee arthroplasty incision. Subcutaneous dissection was sharply taken to the pes anserinus. Gross purulence was encountered in this area over the medial tibial metaphysis. This was sent as our superficial culture. There appeared to be a sinus tract headed proximally. Therefore, we opened the medial retinaculum and exposed the tibial tray and polyethylene at the end of the sinus tract. It was therefore felt that the infection was coming from the knee joint and was tracking distally to an abscess over the pes anserinus. We cultured the synovial fluid in the joint and labeled it as right total knee arthroplasty deep. At this point, we elected to proceed with formal irrigation and debridement of the knee joint with polyethylene exchange. Since we had a short-acting spinal anesthesia elected to place an LMA and transition to general anesthesia. The previously placed skin incision was utilized. Full-thickness medial and lateral flaps were elevated. A standard medial parapatellar approach was made. The patella was subluxed laterally. The scar surrounding the patellar component and deep to the patellar tendon was aggressively debrided. There was some suspicious looking synovium just posterior to the patellar tendon which was sent as our 3rd culture, labeled right total knee arthroplasty synovium. We placed the single prong posterior to the tibial post and sublux it anteriorly. We then placed a narrow Hohmann in this position and advanced to the single prong just posterior to the polyethylene, deep to the post. This allowed us to sublux the poly anteriorly off of the lateral femoral condyle. We then placed a pliers over the post and externally rotated it subluxing the medial side of the tray off of the medial femoral condyle. We then placed an osteotome under the polyethylene and elevated it off of the tibial tray. We irrigated the wound with 6 L of normal saline via pulse lavage. There was no obvious abscess within the knee joint. We placed a #8, 16 mm standard posterior stabilized Attune polyethylene. The knee was taken through range of motion was found to be stable. Antibiotic impregnated cement beads were made on the back table. A string of 13 beads was left in the suprapatellar pouch. We left another 15 loose beads within the medial and lateral gutters. The extensor mechanism was closed with a running #1 PDS suture. The skin and subcu were closed with a running #1 PDS suture. The tourniquet was released. A silver impregnated dressing, [place] and knee immobilizer were applied. Sponge and needle counts were correct x2. The patient tolerated the procedure well. There were no apparent complications. They were carefully transferred to the hospital bed and taken to the postanesthesia care unit in satisfactory condition. PLAN: The patient will be mobilized with physical therapy, he may weightbear as tolerates in the knee immobilizer. No range of motion of the knee should be allowed. Aspirin will be used for DVT prophylaxis. I spoke with Dr. Dc regarding medical management of the infection. She is going to help arrange PICC line placement and antibiotic choice. He may be discharged to home once medically appropriate, in preparation for return to the operating room next week Wednesday or for repeat irrigation and debridement with reimplantation of the polyethylene.
--- NOTE | 2024-02-24 16:08 | W.PM.NB ---
Nerve Block Nerve Block Time Seen by Provider: 16:00 Date Seen: 02/24/24 Type of block requested by surgeon for post-operative analgesia: adductor canal Side: right Time out performed: Yes Verification of patient name: Yes Verification of date of : Yes Site marking: site marked Name of person performing procedure: Cole Continuous monitoring Was continuous monitoring of O2 sat, B/P, playground monitor, recorded every 15 minutes?: Yes Procedure Checklist: sterile prep, needles and gloves Ultrasound guided. Images saved: Yes Medications given in 5ml increments after negative aspiration: Ropivicaine %: 0.5 mL: 20 Needle gauge: 20 Decadron (mg): 10 Precedex (mcg): 25 Patient tolerated procedure well: Yes Additional comments: Needle noted adjacent to nerve Block Charges Block Charge (with Pro Fee): Femoral Nerve Use of Ultrasound Machine for Block: Yes- US Guidance/pain block
--- NOTE | 2024-02-24 16:14 | W.ANESCHARGE ---
Anesthesia Charges Start Date/Time Anesthesia Start Date: 02/24/24 Anesthesia Start Time: 13:44 Stop Date/Time Anesthesia Stop Date: 02/24/24 Anesthesia Stop Time: 16:11 Summary Extremes of Age - Over 70 or under 1: GRINDER OPERATOR AUTOMATIC
[2024-02-24] MEDS: OXYCODONE 5 MG TABLET PO ×3 (17:46→23:23)
[2024-02-24] MEDS: ACETAMINOPHEN 500 MG TABLET 1000 MG PO ×2 (17:46→23:24)
--- NOTE | 2024-02-24 18:41 | PM.IMHP1 ---
Hospitalist- H&P: HPI History of Present Illness Date Seen: 02/24/24 Chief complaint: Surgery Narrative: ADMISSION HISTORY AND PHYSICAL - HOSPITALIST Chief Complaint: Recurrent septic right knee joint HPI: 78 y/o WM with a hx of b/l TKAs in 2021 presents with his 3rd post-op joint infection of the right knee. 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 He was being treated for a draining superficial abscess on the anterior right knee about 3 weeks ago and had been on keflex from his [place] doc and refilled by Dr. Tanner two weeks ago but yesterday it was felt his oral keflex wasn't working and the concern for a recurrent joint infection was high - thus taken to the OR today for exploration of superficial abscess and explore joint involvement. Ultimately it was felt his right knee joint was involved and a poly exchange and abx seeds were placed after wash out. Surgery was without complication and I meet him on the floor. His original right [place] knee was replaced in 2021. 3 weeks post-op he was infected. This was in [place]. It sounds like the poly was exchanged and he was in IV vanc. 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 He made it thru this and had a good year until 03/20. He was coming thru [place] on his way to [place] for vacation and came in with bacteremia and septic joint. had a two stage wash out and was ultimately on IV dapto for MSSA. He would go on to finish abx in [place]. However he did develop pneumonia and a PE postoperatively. His also that year. Ultimately he had new hardware placed in 06/19. He did well. He started to experience redness and slight drainage from a bump about 3 weeks ago. He was coming up to [place] for a routine f/u anyway and thats when Dr. Tanner extended his keflex and aspirated this small localized abscess. It grew MSSA. Yesterday, Dr. Tanner saw him and felt he needed to have this explored. Dr. Tanner elected to do an I/D of this abscess but once in surgery (02/23/24) he felt it connected with the joint. he exchanged the poly and placed abx seeds - has multiple cultures pending. Review: Mar 2022 primary right TKA ([place]) Apr 2022 First post op infection (septic joint) --> Vanc gave him RED MAN Feb 2023 - Fell/abrasion - admitted - septic arthritis/bacteremic. MSSA. 2 phase washout (synovectomy; resection arthroplasty, antibiotic spacer) -QUIQUE -complicated by pneumonia (hospitalized in [place]) -complicated by PE (6 months warfarin) -daptomycin (developed neutropenia) May 2023 - Revision right TKA - QUIQUE January 2024 - failed tx for cellulitis --> right total knee TKA irrigation and debridement, poly exchange QUIQUE -Admitted cefepime started CODE STATUS: FULL CODE EMERGENCY CONTACT PLAN: Shaheen Bearden Rel To Pat Son Cell I've updated the [facility], medications and allergies in the [facility] tabs. INVESTIGATIONS: LABS/MICRO/ECG/IMAGING No pre-op completed. ECG and labs upon arrival to the floor. notable upon review for hyperkalemia, CKD REVIEW OF SYSTEMS: 12-point ROS completed with patient and negative unless otherwise stated in HPI or below. PHYSICAL EXAM: CONSTITUTIONAL: Conversive, good historian. A/O. Knows setting and context. looks comfortable. VITAL SIGNS: see record. HEENT: Normocephalic, atraumatic. PERRL, EOMI, conjunctivae pink, no scleral icterus. Ears and nose externally normal. Pharynx normal. NECK: No JVD. No carotid bruit, no thyromegaly, no adenopathy. CHEST: Clear to auscultation bilaterally HEART: S1 and S2 normal. No harsh murmurs. Edema MUSCULOSKELETAL: right knee is in an immobilizer. NEURO: Cranial nerves intact. Grossly intact. No asymmetric findings. SKIN: No rashes, petechiae, concerning changes PSYCHIATRIC: Euthymic. ADMIT TO MEDSURG: FLOOR CARE DVT: Xarelto GI: PO intake Time spent: Today I spent 75 minutes seeing the patient, discussing the patient with ER staff, reviewing [facility] and [facility] notes/diagnostics, discussing the care plan with our care time that includes social work, PT/OT, pharmacy, RT, custodial and documenting my impressions and plan in the medical record. [facility] Medical History (Updated 02/24/24 @ 23:14 by Lacey Dc MD) History of removal of joint prosthesis of knee due to infection ?Z98.890 - Other specified postprocedural states (ICD-10) ?Z86.19 - Personal history of other infectious and parasitic diseases (ICD-10) Septic joint of right knee joint ?M00.9 - Pyogenic arthritis, unspecified (ICD-10) Pulmonary embolus ?I26.99 - Other pulmonary embolism without acute cor pulmonale (ICD-10) CKD (chronic kidney disease) ?N18.9 - Chronic kidney disease, unspecified (ICD-10) Elevated CPK ?R74.8 - Abnormal levels of other serum enzymes (ICD-10) Aftercare following removal of joint prosthesis ?Z47.89 - Encounter for other orthopedic aftercare (ICD-10) Obesity ?E66.9 - Obesity, unspecified (ICD-10) Infection of prosthetic right knee joint ?T84.53XA - Infection and inflammatory reaction due to internal right knee prosthesis, initial encounter (ICD-10) Acid reflux ?K21.9 - Gastro-esophageal reflux disease without esophagitis (ICD-10) Hyperlipidemia ?E78.5 - Hyperlipidemia, unspecified (ICD-10) Erectile dysfunction ?N52.9 - Male erectile dysfunction, unspecified (ICD-10) Hypertension ?I10 - Essential (primary) hypertension (ICD-10) Gout ?M10.9 - Gout, unspecified (ICD-10) Surgical History History of revision of total replacement of right knee joint (06/15/23) ?Z96.651 - Presence of right artificial knee joint (ICD-10) Hx of cataract surgery ?Z98.49 - Cataract extraction status, unspecified eye (ICD-10) 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) ?Z96.652 - Presence of left artificial knee joint (ICD-10) History of revision of total replacement of right knee joint (~05/2022) ?Z96.651 - Presence of right artificial knee joint (ICD-10) Status post arthroscopy of right knee (03/21/23) ?Z98.890 - Other specified postprocedural states (ICD-10) Status post total right knee replacement (04/2022) ?Z96.651 - Presence of right artificial knee joint (ICD-10) History of knee surgery ?Z98.890 - Other specified postprocedural states (ICD-10) Hx of cholecystectomy ?Z90.49 - Acquired absence of other specified parts of digestive tract (ICD-10) History of appendectomy ?Z90.49 - Acquired absence of other specified parts of digestive tract (ICD-10) Social History (Reviewed 07/28/23 @ 08:40 by Nasrin Mchugh ~ [facility], [facility]) Narrative: Patient formally lived in [place] for many years. Currently has been living in [place]. He is now staying with his son in [place]. Previously was a primary care patient of Dr. Yoon. What is your current living situation?: I presently have a place to live Problems where you live: no known problems Problems where you live details: no known problems In the past 12 months, utilities in danger of being shut off: no In past 12 months, lack of transportation kept you from medical appts, meetings, work, or getting things needed for daily living: no In the past 12 mos, have been you worried that your food would run out before you had money to buy more?: never true In the past 12 mos, the food you bought just didn't last and you didn't have money to buy more?: never true Highest level of school completed/degree received: 12th grade, no diploma Smoking Status: Never smoker Do you use any of these nicotine containing products: None Second hand tobacco smoke exposure: No How often do you have a drink containing alcohol: 2-4 times a month How often do you have six or more drinks on one occasion: Never AUDIT-C Alcohol total score: 2 Non-prescribed substance use: denies use Caffeine: Yes (soda daily) How often does anyone, including family, friends and others, physically hurt you: never How often does anyone, including family, friends and others, insult or talk down to you: never How often does anyone, including family, friends and others, threaten you with harm: never How often does anyone, including family, friends and others, scream or curse at you: never service: Yes Meds Home Medications and Allergies Home Medications ?Medication ?Instructions ?Recorded ?Confirmed ?Type propranolol 120 mg capsule,24 120 mg PO DAILY 03/20/23 02/24/24 History hr,extended release aflibercept 2 mg/0.05 mL 2 mg intravitreal Q4W 03/21/23 02/23/24 History intravitreal solution for injection (Eylea) glipizide 10 mg tablet 5 mg PO HS PRN 03/21/23 02/24/24 History metformin 500 mg tablet 500 mg PO DAILY 06/14/23 02/24/24 History flash glucose sensor (FreeStyle #1 ea 06/23/23 02/23/24 History Nadira 2 Sensor kit) furosemide 20 mg tablet (Lasix) 20 mg PO DAILY PRN 06/23/23 02/24/24 History irbesartan 75 mg tablet 75 mg PO DAILY 07/28/23 02/24/24 History cephalexin 500 mg capsule 500 mg PO QID 02/09/24 02/24/24 History acetaminophen 650 mg 650 mg PO Q8H PRN 02/23/24 02/23/24 History tablet,extended release (Tylenol 8 Hour) aspirin 81 mg capsule mg PO BID 02/23/24 02/23/24 History cyclobenzaprine 5 mg tablet mg PO PRN 02/23/24 02/23/24 History ferrous sulfate 325 mg (65 mg 325 mg PO DAILY 02/23/24 02/24/24 History iron) tablet Allergies Allergy/AdvReac Type Severity Reaction Status Date / Time daptomycin Allergy Severe Drug Verified 02/24/24 12:01 induced leukopenia atorvastatin Allergy Verified 02/24/24 12:01 vancomycin Allergy Verified 02/24/24 12:01 hydromorphone [From Dilaudid] AdvReac Intermediate Nausea Verified 02/24/24 12:01 Exam Const: Vital Signs, click to edit/add: Vital Signs - 24 hr 02/24/24 12:05 02/24/24 16:06 02/24/24 16:10 Temperature 97.4 F L 97.1 F L Pulse Rate 70 69 65 Pulse Rate [Left P ulse Oximeter] Respiratory Rate 16 14 16 Blood Pressure 133/80 147/74 H 139/74 Blood Pressure [Ri ght Arm] Pulse Oximetry 98 96 97 Oxygen Delivery Me thod Room Air Room Air Room Air 02/24/24 16:15 02/24/24 16:20 02/24/24 16:25 Temperature Pulse Rate 61 62 63 Pulse Rate [Left P ulse Oximeter] Respiratory Rate 16 16 16 Blood Pressure 147/84 H 131/78 136/89 Blood Pressure [Ri ght Arm] Pulse Oximetry 100 100 97 Oxygen Delivery Me thod Room Air Room Air Room Air 02/24/24 16:30 02/24/24 16:35 02/24/24 17:00 Temperature 96.9 F L 97.7 F Pulse Rate 60 60 Pulse Rate [Left P ulse Oximeter] 70 Respiratory Rate 16 16 18 Blood Pressure 144/83 H 135/70 Blood Pressure [Ri ght Arm] 134/64 Pulse Oximetry 98 97 97 Oxygen Delivery Me thod Room Air Room Air Room Air 02/24/24 17:15 02/24/24 18:00 02/24/24 18:03 Temperature 97.8 F Pulse Rate Pulse Rate [Left P ulse Oximeter] 75 Respiratory Rate 18 Blood Pressure Blood Pressure [Ri ght Arm] 132/55 L 143/50 H Pulse Oximetry 97 97 Oxygen Delivery Me thod Room Air Room Air Assessment and Plan Assessment and plan (1) Septic joint of right knee joint: Problem comment: -washout 02/23, IV cefepime -abscess aspiration on 02/09/24 in ortho clinic grew MSSA -no evidence of systemic illness -awaiting cultures -PICC line and ID consult needed. Hx 1. 05/19 - [place] given IV Vanc and had poly exchange. 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 2. 03/20 - MSSA. IV daptomycin. staged washout; TKA in 06/19 3. January 2024. Washout (poly exchange and abx seeds) - started cefepime for pseudomonas coverage; recurrent infection. but is likely MSSA again. Status: Acute (2) Acute kidney injury superimposed on CKD: Problem comment: creatinine is 1.8 with a moderate hyperkalemia post op. EKG reveals no peaked Ts I wonder if this is CKD that has progressed from last year and the hyperkalemia is from his ARB hold ARB will give fluid bolus post -op, one dose of Lokelma recheck in 4 hours Status: Acute (3) Acute hyperkalemia: Problem comment: creatinine is 1.8 with a moderate hyperkalemia (6.0) post op. 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 Status: Acute (5) History of removal of joint prosthesis of knee due to infection: Problem comment: 03/25/2023. Six weeks of IV daptomycin therapy for bacteremia and infected prosthetic joint with MSSA. Developed PNA and PE postoperatively. Status: Acute (6) Status post revision of total replacement of right knee: Problem comment: 06/15/2023, also removal of antibiotic cement spacers Status: Acute (7) Pulmonary embolus: Problem comment: -dx end of February 2023 (after d/c from and home in [place]). completed six months of warfarin -post op course January 2024 - starting Xarelto and will continue for at least 3 months depending on course. Status: Chronic (8) Type 2 diabetes mellitus: Problem comment: A1C 7.0 SSI, bedside glucose checks glipizide and metformin orally (putting metformin on hold given hyperkalemia) may need short term lantus dosing for glycemic control Status: Chronic (9) CKD (chronic kidney disease): Problem comment: 2022 1.4 -1.5 baseline. 2023 post-op 1.8 with hyperkalemia on an ARB Status: Chronic (10) Hypertension: Problem comment: propranolol, irbesartan, lasix. irbesartan on hold 2/2 hyperkalemia Status: Chronic
[2024-02-24] MEDS: CEFEPIME HCL 2 GM in 0.9 % SODIUM CHLORIDE Mini-bag 100 ML IVPB (19:29)
[2024-02-24] MEDS: ASPIRIN 81 MG TABLET EC PO (20:59)
[2024-02-24 22:14] LABS: HCO3 VBG 26 mmol/L (21-28); Lactate* 1.2 mmol/L (0.5-1.9); PCO2 VBG 47 mmHG (40-50); PO2 VBG 31.1 mmHG (25-47); pH VBG 7.347 (7.32-7.43)
[2024-02-24 22:19] LABS: Basophils Absolute Auto 0.01 K/uL (0.00-0.30); Basophils Percent Auto 0.1 % (0.0-3.0); Eosinophils Absolute Auto 0.01 K/uL (0.00-0.50); Eosinophils Percent Auto 0.1 % (0.0-7.0); Hematocrit 36.9 % (37.0-53.0); Hemoglobin* 11.4 gm/dL (13.5-17.5); Immature Granulocytes Abs Auto 0.02 K/uL (0.00-0.30); Immature Granulocytes Pct Auto 0.2 %; Lymphocytes Percent Auto 6.6 % (20-44); Mean Corpuscular HGB Conc 31 gm/dL (32-36); Mean Corpuscular Hemoglobin 28 pg (26-34); Mean Corpuscular Volume 89 fL (80-100); Monocytes Percent Auto 0.8 % (0.0-11.0); Neutrophils Percent Auto 92.2 % (42.0-72.0); Platelet Count* 271 K/uL (140-440); RDW Coefficient of Variation % 14.8 % (11.5-15.5); Red Blood Count 4.13 m/uL (4.30-5.90); White Blood Count* 10.63 K/uL (4.50-11.00)
[2024-02-24 22:31] LABS: Chloride* 104 mmol/L (96-114); INR 0.97 (0.91-1.10); Prothrombin Time 13.5 Seconds
[2024-02-24 22:32] LABS: Sodium* 135 mmol/L (135-149)
[2024-02-24 22:34] LABS: Creatinine* 1.8 mg/dL (0.5-1.5); Est. Creatinine Clearance* 32.13; Estimated Glomerular Filt Rate 38 ml/min
[2024-02-24 22:35] LABS: Alanine Aminotransferase* 17 U/L (4-50); Alkaline Phosphatase* 49 U/L (40-150); Anion Gap 8 mEq/L (7-15); Aspartate Amino Transferase* 24 U/L (12-35); Bilirubin Direct* 0.4 mg/dL (0.0-0.5); Bilirubin Total* 0.4 mg/dL (0.1-1.5); Blood Urea Nitrogen* 39 mg/dL (7-30); Carbon Dioxide* 23 mmol/L (20-32); Glucose* 289 mg/dL (60-115)
[2024-02-24 22:38] LABS: C Reactive Protein* 1.3 mg/dL (0.5-1.0)
[2024-02-24 22:39] LABS: Slide Review Reflex No
[2024-02-24 22:51] LABS: Procalcitonin* 0.06 ng/mL (<0.50)
[2024-02-24 22:56] LABS: NT Pro B Type NatriureticPept* 450 pg/mL; Troponin I* < 0.01 ng/mL (0.01-0.04)
[2024-02-24] MEDS: 0.9 % SODIUM CHLORIDE 1000 ml 1,000 ML 500 ML IV (23:24)
[2024-02-25] VITALS (9 sets, daily range): BP systolic 120–160; BP diastolic 55–82; PULSE 68–87; RESP 16–22; TEMP 36.2–37; O2SAT 94–97
[2024-02-25] MEDS: SODIUM ZIRCONIUM CYCLOSILICATE 10 GM PO ×2 (00:04→04:22)
[2024-02-25] MEDS: CEFEPIME HCL 2 GM in 0.9 % SODIUM CHLORIDE Mini-bag 100 ML IVPB ×3 (03:10→18:08)
[2024-02-25 03:29] LABS: Basophils Absolute Auto 0.01 K/uL (0.00-0.30); Basophils Percent Auto 0.1 % (0.0-3.0); Hematocrit 35.6 % (37.0-53.0); Hemoglobin* 11.1 gm/dL (13.5-17.5); Immature Granulocytes Abs Auto 0.01 K/uL (0.00-0.30); Immature Granulocytes Pct Auto 0.1 %; Lymphocytes Percent Auto 10.3 % (20-44); Mean Corpuscular HGB Conc 31 gm/dL (32-36); Mean Corpuscular Hemoglobin 28 pg (26-34); Mean Corpuscular Volume 89 fL (80-100); Monocytes Percent Auto 0.7 % (0.0-11.0); Neutrophils Percent Auto 88.8 % (42.0-72.0); Platelet Count* 264 K/uL (140-440); RDW Coefficient of Variation % 14.7 % (11.5-15.5); Red Blood Count 4.01 m/uL (4.30-5.90); White Blood Count* 7.17 K/uL (4.50-11.00)
[2024-02-25 03:30] LABS: Slide Review Reflex No
[2024-02-25 03:41] LABS: Chloride* 105 mmol/L (96-114); Potassium* 5.7 mmol/L (3.6-5.1); Sodium* 135 mmol/L (135-149)
[2024-02-25 03:44] LABS: Anion Gap 9 mEq/L (7-15); Blood Urea Nitrogen* 38 mg/dL (7-30); Carbon Dioxide* 21 mmol/L (20-32); Creatinine* 1.6 mg/dL (0.5-1.5); Est. Creatinine Clearance* 36.15; Estimated Glomerular Filt Rate 44 ml/min
[2024-02-25 03:45] LABS: Calcium* 8.7 mg/dL (8.4-10.6); Glucose* 266 mg/dL (60-115)
[2024-02-25] MEDS: ACETAMINOPHEN 500 MG TABLET 1000 MG PO ×3 (06:09→18:08)
--- NOTE | 2024-02-25 06:45 | PC.NURSE ---
End of shift report [id number]: Alert and oriented x 3. Pain to right knee well managed with current regimen. Immobilizer intact to RLE, patient verbalized understanding of use and need to keep knee straight. CMS to RLE intact, patient reports full feeling in RLE and capillary refill <3 seconds. Lab redraw at 0300, Danni CHAVIRA. Dr. Connell notified of potassium level of 5.7, new orders for lokelma, redraw BMP at 1000 and apply rn cardiac cath. Patient updated and in agreement with plan. Tele reading NSR at this time.
[2024-02-25] MEDS: LACTOBACILLUS ACIDOPHILUS 1 TABLET 1 TAB PO ×3 (07:55→18:08)
[2024-02-25] MEDS: INSULIN ASPART 100 UNIT/ML SUBCUT ×4 (08:08→21:07)
[2024-02-25] MEDS: glipiZIDE 5 MG TABLET 10 MG PO (08:58)
[2024-02-25] MEDS: RIVAROXABAN 10 MG TABLET PO (08:58)
[2024-02-25] MEDS: FERROUS SULFATE 325 MG TABLET PO (08:58)
[2024-02-25] MEDS: METFORMIN 500 MG TABLET PO (08:58)
[2024-02-25] MEDS: FUROSEMIDE 40 MG TABLET PO (09:44)
--- NOTE | 2024-02-25 10:47 | NUTR.NU ---
RDN with MD consult for diet education related to hyperkalemia and chronic kidney disease. Patient admitted for post-op joint infection of the right knee. Washout done . Past medical history includes Hyperlipidemia, Obesity, Gout, and type 2 diabetes mellitus. Current weight 230 lb 6.129 oz; height 5ft 7in; BMI 36.1 kg/m2. His weight has been stable recently. Current diet is diabetic. Potassium on admit 02/24/2024 6.0%; 02/25/2024 5.7%. RDN visited with patient whom reports he follows a diabetic diet at home and monitors his blood sugars. 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 He did go on vacation right before admission and reports he ate some foods he typically would not. he agreed to receive diet education on low potassium foods. Reviewed foods high and low in potassium. Provided handout from [facility] AND on Potassium content of foods. Patient verbalized understanding. RDN's contact information was provided and patient was encouraged to call with questions.
[2024-02-25 11:11] LABS: Chloride* 103 mmol/L (96-114); Potassium* 4.6 mmol/L (3.6-5.1); Sodium* 136 mmol/L (135-149)
[2024-02-25 11:13] LABS: Creatinine* 1.7 mg/dL (0.5-1.5); Est. Creatinine Clearance* 34.02; Estimated Glomerular Filt Rate 41 ml/min
[2024-02-25 11:14] LABS: Anion Gap 10 mEq/L (7-15); Blood Urea Nitrogen* 38 mg/dL (7-30); Calcium* 8.8 mg/dL (8.4-10.6); Carbon Dioxide* 23 mmol/L (20-32); Glucose* 330 mg/dL (60-115)
[2024-02-25 12:49] LABS: Chloride* 102 mmol/L (96-114)
[2024-02-25 12:50] LABS: Potassium* 4.3 mmol/L (3.6-5.1); Sodium* 137 mmol/L (135-149)
[2024-02-25 12:52] LABS: Creatinine* 1.7 mg/dL (0.5-1.5); Est. Creatinine Clearance* 34.02; Estimated Glomerular Filt Rate 41 ml/min
[2024-02-25 12:53] LABS: Anion Gap 11 mEq/L (7-15); Blood Urea Nitrogen* 39 mg/dL (7-30); Calcium* 9.1 mg/dL (8.4-10.6); Carbon Dioxide* 24 mmol/L (20-32); Glucose* 284 mg/dL (60-115)
--- NOTE | 2024-02-25 13:07 | PM.IMPN1 ---
Progress Note: A&P Assessment and plan (1) Septic joint of right knee joint: Problem details: Hx 1. 05/19 - [place] given IV Vanc and had poly exchange. 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 2. 03/20 - MSSA. IV daptomycin (daptomycin caused eosinophilic pneumonia). staged washout 3. 06/19 TKA 4. 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 - 02/25/24 - no evidence of systemic illness, cultures from washout 02/23 pending. ID consulted [email or web address]. Recommended BC and continue cefepime until cultures resulted. BCx2 obtained. Planning repeat washout on Wednesday. Will hold off on PICC pending BC. Status: Acute (2) S/P right knee surgery: Problem details: Right total knee arthroplasty irrigation and debridement, poly exchange (02/24/2024, Dr. Tanner) Status: Acute (3) Acute kidney injury superimposed on CKD: Problem details: CKD - 2022 1.4 -1.5 baseline. - 2023 post-op 1.8 with hyperkalemia on an ARB creatinine is 1.8 with a moderate hyperkalemia post op. BEAN - BEAN vs progression from last year and the hyperkalemia is from his ARB - continue to hold ARB - Cr stable after furosemide and IVF maintenance Status: Acute (4) Acute hyperkalemia: Problem details: - 02/23 creatinine is 1.8 with a moderate hyperkalemia (6.0) post op. EKG reveals no peaked Ts; hold ARB; will give fluid bolus post -op, one dose of Lokelma - 02/24 Cr 1.6, K down to 5.7 this am. Gave oral furosemide 40mg this am and K is down to 4.3, Cr stable at 1.7. Continue to hold irbesartan. Do not give more furosemide at this time. Recheck BMP in am. Status: Acute (5) Type 2 diabetes mellitus: Problem details: A1C 7.0 Bedside glucose checks 200's. Increase - home meds: glipizide and metformin orally; hold metformin due to elevated Cr and hyperkalemia - start lantus, anticipate this will likely be short term Status: Chronic (6) Pulmonary embolus: Problem details: -dx end of February 2023 (after d/c from and home in [place]). completed six months of warfarin -post op course January 2024 - started Xarelto 02/25/24 and will continue for at least 3 months depending on course. Status: Chronic (7) Hypertension: Problem details: propranolol, irbesartan, lasix. irbesartan on hold 2/2 hyperkalemia hold lasix due to elevated Cr. Monitor. Status: Chronic Subjective Time Seen by Provider: 10:20 Date Seen: 02/25/24 Interval history: Winston feels well today. He has no CP, SOB, malaise, fever, or chills. His son came in detention through my interview. We discussed knee infection, h/o MSSA/bacteremia, BEAN, hyperkalemia, DM2, diuretics, and possibility of dialysis as well as anticipated hospital stay. Winston tells me that there are a lot of stairs at his house and that he has difficulty getting around there when he is not feeling well. Exam Narrative: Exam Narrative: General: No acute distress. Awake, alert, oriented x3. No pallor. No jaundice. Oropharynx: Clear. Mucous membranes moist. Cardiovascular: Regular rate and rhythm. No murmurs, gallops, or rubs. Respiratory: Clear to auscultation bilaterally. No wheezes or crackles. Abdomen: Bowel sounds present. Soft, nondistended, nontender. Extremities: Right leg is bandaged with an [place] wrap and in a knee immobilizer. Const: Vital Signs, click to edit/add: Vital Signs - 24 hr 02/24/24 16:06 02/24/24 16:10 02/24/24 16:15 Temperature 97.1 F L Pulse Rate 69 65 61 Pulse Rate [Left P ulse Oximeter] Respiratory Rate 14 16 16 Blood Pressure 147/74 H 139/74 147/84 H Blood Pressure [Le ft Arm] Blood Pressure [Ri ght Arm] Pulse Oximetry 96 97 100 Oxygen Delivery Me thod Room Air Room Air Room Air 02/24/24 16:20 02/24/24 16:25 02/24/24 16:30 Temperature Pulse Rate 62 63 60 Pulse Rate [Left P ulse Oximeter] Respiratory Rate 16 16 16 Blood Pressure 131/78 136/89 144/83 H Blood Pressure [Le ft Arm] Blood Pressure [Ri ght Arm] Pulse Oximetry 100 97 98 Oxygen Delivery Me thod Room Air Room Air Room Air 02/24/24 16:35 02/24/24 17:00 02/24/24 17:15 Temperature 96.9 F L 97.7 F Pulse Rate 60 Pulse Rate [Left P ulse Oximeter] 70 Respiratory Rate 16 18 Blood Pressure 135/70 Blood Pressure [Le ft Arm] Blood Pressure [Ri ght Arm] 134/64 132/55 L Pulse Oximetry 97 97 Oxygen Delivery Me thod Room Air Room Air 02/24/24 18:00 02/24/24 18:03 02/24/24 19:02 Temperature 97.8 F 97.9 F Pulse Rate 75 Pulse Rate [Left P ulse Oximeter] 75 Respiratory Rate 18 18 Blood Pressure 140/75 H Blood Pressure [Le ft Arm] Blood Pressure [Ri ght Arm] 143/50 H Pulse Oximetry 97 97 97 Oxygen Delivery Me thod Room Air Room Air 02/24/24 19:30 02/24/24 20:00 02/24/24 21:00 Temperature 97.9 F 97.9 F 97.9 F Pulse Rate 66 65 72 Pulse Rate [Left P ulse Oximeter] Respiratory Rate 16 18 18 Blood Pressure 130/54 L 145/67 H 127/92 H Blood Pressure [Le ft Arm] Blood Pressure [Ri ght Arm] Pulse Oximetry 97 96 97 Oxygen Delivery Me thod Room Air Room Air Room Air 02/24/24 22:00 02/24/24 23:00 02/24/24 23:00 Temperature 97.4 F L Pulse Rate 73 Pulse Rate [Left P ulse Oximeter] 75 Respiratory Rate 18 18 18 Blood Pressure 133/75 Blood Pressure [Le ft Arm] Blood Pressure [Ri ght Arm] Pulse Oximetry 97 98 Oxygen Delivery Me thod Room Air Room Air 02/24/24 23:00 02/24/24 23:00 02/25/24 03:00 Temperature 97.9 F 97.9 F 97.1 F L Pulse Rate 77 Pulse Rate [Left P ulse Oximeter] 77 68 Respiratory Rate 18 18 16 Blood Pressure 137/71 Blood Pressure [Le ft Arm] Blood Pressure [Ri ght Arm] 137/71 120/55 L Pulse Oximetry 98 98 94 Oxygen Delivery Me thod Room Air Room Air Room Air 02/25/24 07:44 02/25/24 07:44 02/25/24 07:44 Temperature 98.4 F Pulse Rate Pulse Rate [Left P ulse Oximeter] 86 86 Respiratory Rate 16 16 16 Blood Pressure Blood Pressure [Le ft Arm] Blood Pressure [Ri ght Arm] 146/74 H Pulse Oximetry 96 [facility] 02/25/24 09:55 02/25/24 11:42 Temperature 98.2 F Pulse Rate 87 Pulse Rate [Left P ulse Oximeter] 83 Respiratory Rate 18 Blood Pressure Blood Pressure [Le ft Arm] 136/60 Blood Pressure [Ri ght Arm] Pulse Oximetry 96 [facility] Labs Labs: Laboratory Results - last 24 hr 02/24/24 02/25/24 02/25/24 22:09 03:05 10:35 WBC 10.63 7.17 RBC 4.13 L 4.01 L Hgb 11.4 L 11.1 L Hct 36.9 L 35.6 L MCV 89 89 MCH 28 28 MCHC 31 L 31 L RDW Coeff of Geovanni 14.8 14.7 Plt Count 271 264 Neut % (Auto) 92.2 H 88.8 H Lymph % (Auto) 6.6 L 10.3 L Park % (Auto) 0.8 0.7 Eos % (Auto) 0.1 0.0 Baso % (Auto) 0.1 0.1 Neut # (Auto) 9.80 H 6.40 Lymph # (Auto) 0.70 L 0.70 L Park # (Auto) 0.10 0.10 Eos # (Auto) 0.01 0.00 Baso # (Auto) 0.01 0.01 Abs Immat Gran (auto) 0.02 0.01 Imm/Tot Granulo (auto) 0.2 0.1 INR 0.97 VBG pH 7.347 VBG pCO2 47 VBG pO2 31.1 VBG HCO3 26 Sodium 135 135 136 Potassium 6.0 H 5.7 H 4.6 Chloride 104 105 103 Carbon Dioxide 23 21 23 Anion Gap 8 9 10 BUN 39 H 38 H 38 H Creatinine 1.8 H 1.6 H 1.7 H Estimated Creat Clear 32.13 36.15 34.02 Estimated GFR 38 44 41 Glucose 289 H 266 H 330 H Hemoglobin A1c 7.0 H Lactate 1.2 Calcium 9.0 8.7 8.8 Phosphorus 4.0 Total Bilirubin 0.4 Direct Bilirubin 0.4 AST 24 ALT 17 Alkaline Phosphatase 49 Troponin I < 0.01 L C-Reactive Protein 1.3 H NT-Pro-B Natriuret Pep 450 Total Protein 7.0 Albumin 4.0 Procalcitonin 0.06 TSH 1.420 02/25/24 12:01 WBC RBC Hgb Hct MCV MCH MCHC RDW Coeff of Geovanni Plt Count Neut % (Auto) Lymph % (Auto) Park % (Auto) Eos % (Auto) Baso % (Auto) Neut # (Auto) Lymph # (Auto) Park # (Auto) Eos # (Auto) Baso # (Auto) Abs Immat Gran (auto) Imm/Tot Granulo (auto) INR VBG pH VBG pCO2 VBG pO2 VBG HCO3 Sodium 137 Potassium 4.3 Chloride 102 Carbon Dioxide 24 Anion Gap 11 BUN 39 H Creatinine 1.7 H Estimated Creat Clear 34.02 Estimated GFR 41 Glucose 284 H Hemoglobin A1c Lactate Calcium 9.1 Phosphorus Total Bilirubin Direct Bilirubin AST ALT Alkaline Phosphatase Troponin I C-Reactive Protein NT-Pro-B Natriuret Pep Total Protein Albumin Procalcitonin TSH
[2024-02-25] MEDS: OXYCODONE 5 MG TABLET PO (16:00)
--- NOTE | 2024-02-25 16:38 | W.PM.INFD_ITS ---
Consultation Information Consultation Information Date of Consult: 01/25/24 Requesting Physician: Babita Coy Reason for Consult: abx Consultation Statement: This patient recommendation is based on a telemedicine consult request which was completed asynchronously through chart review and information provided by the primary physician. The patient was not seen or examined today. The evaluation is consultative in nature and all patient care and treatment decisions can either be accepted or rejected by the patient's primary hospital-based treating physician using their own independent medical judgment for their patient. 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 Now last 3 weeks draining superficial abscess this was aspirated (on 02/09/2024) in the Ortho clinic culture positive for MSSA status post p.o. Keflex with no improvement is now directly admitted for PJI. No systemic illness including fevers, chills. On admission WBC 10.6 K, PLT 264, K6 (now 4.3), cr 1.8 (now 1.7), A1c 7, LFT NL, CRP 1.3, BNP 450, Pro-René 0.06, Last imaging (02/03) R XR soft tissue swelling, anteriorly. Was taken to OR (02/23): Cross purulence encountered over the medial tibial metaphysis. Sent for superficial culture. Appeared to sinus tract heading proximally and felt an infection was coming from the knee joint. Deep cultures obtained. Noted some suspicious looking synovium posterior to the patellar tendon which was also sent for cultures. Plan for RT OR next Wednesday or for repeat I&D with reimplantation of the polyethylene. ID consulted for empiric antibiotics [facility] Medical History (Updated 02/25/24 @ 13:51 by Babita Coy MD) History of removal of joint prosthesis of knee due to infection ?Z98.890 - Other specified postprocedural states (ICD-10) ?Z86.19 - Personal history of other infectious and parasitic diseases (ICD- 10) Septic joint of right knee joint ?M00.9 - Pyogenic arthritis, unspecified (ICD-10) Pulmonary embolus ?I26.99 - Other pulmonary embolism without acute cor pulmonale (ICD-10) CKD (chronic kidney disease) ?N18.9 - Chronic kidney disease, unspecified (ICD-10) Elevated CPK ?R74.8 - Abnormal levels of other serum enzymes (ICD-10) Aftercare following removal of joint prosthesis ?Z47.89 - Encounter for other orthopedic aftercare (ICD-10) Obesity ?E66.9 - Obesity, unspecified (ICD-10) Infection of prosthetic right knee joint ?T84.53XA - Infection and inflammatory reaction due to internal right knee prosthesis, initial encounter (ICD-10) Acid reflux ?K21.9 - Gastro-esophageal reflux disease without esophagitis (ICD-10) Hyperlipidemia ?E78.5 - Hyperlipidemia, unspecified (ICD-10) Erectile dysfunction ?N52.9 - Male erectile dysfunction, unspecified (ICD-10) Hypertension ?I10 - Essential (primary) hypertension (ICD-10) Gout ?M10.9 - Gout, unspecified (ICD-10) Surgical History (Updated 02/25/24 @ 10:18 by Kait Lorenzo) S/P right knee surgery (02/24/24) ?Z98.890 - Other specified postprocedural states (ICD-10) History of revision of total replacement of right knee joint (06/15/23) ?Z96.651 - Presence of right artificial knee joint (ICD-10) Hx of cataract surgery ?Z98.49 - Cataract extraction status, unspecified eye (ICD-10) 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) ?Z96.652 - Presence of left artificial knee joint (ICD-10) History of revision of total replacement of right knee joint (~05/2022) ?Z96.651 - Presence of right artificial knee joint (ICD-10) Status post arthroscopy of right knee (03/21/23) ?Z98.890 - Other specified postprocedural states (ICD-10) 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 Currently has been living in [place]. He is now staying with his son in [place]. Previously was a primary care patient of Dr. Yoon. What is your current living situation?: I presently have a place to live Problems where you live: no known problems Problems where you live details: no known problems In the past 12 months, utilities in danger of being shut off: no In past 12 months, lack of transportation kept you from medical appts, meetings, work, or getting things needed for daily living: no In the past 12 mos, have been you worried that your food would run out before you had money to buy more?: never true In the past 12 mos, the food you bought just didn't last and you didn't have money to buy more?: never true Highest level of school completed/degree received: 12th grade, no diploma Smoking Status: Never smoker Do you use any of these nicotine containing products: None Second hand tobacco smoke exposure: No How often do you have a drink containing alcohol: 2-4 times a month How often do you have six or more drinks on one occasion: Never AUDIT-C Alcohol total score: 2 Non-prescribed substance use: denies use Caffeine: Yes (soda daily) How often does anyone, including family, friends and others, physically hurt you : never How often does anyone, including family, friends and others, insult or talk down to you: never How often does anyone, including family, friends and others, threaten you with harm: never How often does anyone, including family, friends and others, scream or curse at you: never service: Yes Home Medications and Allergies Home Medications and Allergies Inpatient Medications: Active Medications Generic Name Dose Route Start Last Admin Trade Name Freq PRN Reason Stop Dose Admin Acetaminophen 1,000 mg 02/24/24 18:00 02/25/24 12:23 Acetaminophen 500 Mg Tablet PO 1,000 mg Q6H PRUDENCIO Administration Aspirin 81 mg 02/24/24 21:00 02/24/24 20:59 Aspirin 81 Mg Tablet Ec PO 81 mg BID PRUDENCIO Administration Bisacodyl 10 mg 02/24/24 17:32 Bisacodyl 10 Mg Supp.Rect [place] DAILY PRN Constipation Diphenhydramine HCl 25 - 50 mg 02/24/24 17:32 Diphenhydramine 50 Mg/Ml Inj IVP Q3H PRN Itching Ferrous Sulfate 325 mg 02/25/24 09:00 02/25/24 08:58 Ferrous Sulfate 325 Mg Tablet PO 325 mg DAILY [facility] Administration Glipizide 10 mg 02/25/24 09:00 02/25/24 08:58 Glipizide 5 Mg Tablet PO 10 mg QAM [facility] Administration Hydromorphone HCl 0.2 - 0.5 mg 02/24/24 17:32 Hydromorphone 0.5 Mg/0.5 Ml Inj IVP Q1H PRN Pain Lactated Ringer's 1,000 mls @ 75 mls/hr 02/24/24 17:32 02/25/24 07:17 Lactated Ringers 1000 Ml IV Not Given .[id number] [facility] Cefepime HCl 2 gm/ Sodium 100 mls @ 200 mls/hr 02/24/24 18:30 02/25/24 11:38 Chloride IVPB Infused Q8H [facility] Infusion Insulin Aspart 0 unit 02/25/24 07:30 02/25/24 12:20 Insulin Aspart 100 Unit/Ml SUBCUT 3 unit ACHS [facility] Administration Protocol Insulin Glargine 5 unit 02/25/24 21:00 Insulin Glargine,Hum.Rec.Anlog 100 Unit/Ml Insuln.Pen SUBCUT HS [facility] Irbesartan 75 mg 02/25/24 09:00 Irbesartan 150 Mg Tablet PO DAILY [facility] Lactobacillus Acidophilus 1 tab 02/25/24 08:00 02/25/24 12:23 Lactobacillus Acidophilus 1 Tablet PO 1 tab TIDWM [facility] Administration Lidocaine/Aluminum/Magnesium/Simeth 15 - 30 ml 02/24/24 17:32 Mag Hydrox/Aluminum Hyd/Simeth 30 Ml Oral.Susp PO Q2H PRN Indigestion Metformin HCl 500 mg 02/25/24 09:00 02/25/24 08:58 Metformin 500 Mg Tablet PO 500 mg DAILY PRUDENCIO Administration Morphine Sulfate 4 mg 02/24/24 17:39 Morphine 2 Mg/Ml Inj IVP Q2H PRN Ondansetron HCl 4 mg 02/24/24 17:32 Ondansetron 2 Mg/Ml Inj IVP Q4H PRN Nausea And Vomiting Oxycodone HCl 2.5 - 10 mg 02/24/24 17:32 02/25/24 16:00 Oxycodone 5 Mg Tablet PO 10 mg Q2H PRN Administration Pain Propranolol HCl 120 mg 02/25/24 09:00 02/25/24 08:57 Propranolol 60 Mg Er Cap PO 120 mg DAILY PRUDENCIO Administration Rivaroxaban 10 mg 02/25/24 09:00 02/25/24 08:58 Rivaroxaban 10 Mg Tablet PO 10 mg DAILY PRUDENCIO Administration Sennosides 2 tab 02/24/24 21:00 02/25/24 08:58 Sennosides 1 Tab Tablet PO Not Given BID PRUDENCIO Sodium Chloride 500 ml 02/24/24 17:32 0.9 % Sodium Chloride 500 Ml IV Q4H PRN OLIGURIA Discontinued Medications Generic Name Dose Route Start Last Admin Trade Name Ravinq PRN Reason Stop Dose Admin Cefazolin Sodium 2 gm 02/24/24 10:06 02/24/24 14:02 Cefazolin 2 Gm Inj IVP 02/24/24 10:07 2 gm ONCE ONE Administration Cefazolin Sodium Confirm 02/24/24 14:07 Cefazolin 2 Gm Inj Administered 02/24/24 14:08 Dose 2 gm .ROUTE .STK-MED ONE Chloroprocaine HCl Confirm 02/24/24 14:07 Chloroprocaine Pf 2 % 20 Ml Vial Administered 02/24/24 14:08 Dose 20 ml INJECTION .STK-MED ONE Cyclobenzaprine HCl 5 mg 02/24/24 17:46 Cyclobenzaprine Hcl 10 Mg Tablet PO Q12H PRN Ephedrine Sulfate 5 - 10 mg 02/24/24 14:17 Ephedrine Sulfate 5 Mg/Ml Inj IVP Q5M PRN Ephedrine Sulfate Confirm 02/24/24 15:46 Ephedrine Sulfate 5 Mg/Ml Inj Administered 02/24/24 15:47 Dose 25 mg IVP .STK-MED ONE Fentanyl Confirm 02/24/24 13:43 Fentanyl 100 Mcg/2 Ml Inj Administered 02/24/24 13:44 Dose 100 mcg .ROUTE .STK-MED ONE Fentanyl 50 mcg 02/24/24 14:17 Fentanyl 100 Mcg/2 Ml Inj IVP Q5M PRN Fentanyl Confirm 02/24/24 15:32 Fentanyl 100 Mcg/2 Ml Inj Administered 02/24/24 15:33 Dose 100 mcg .ROUTE .STK-MED ONE Furosemide 40 mg 02/25/24 09:20 02/25/24 09:44 Furosemide 40 Mg Tablet PO 40 mg DAILY@0800 PRUDENCIO Administration Hydralazine HCl 10 mg 02/24/24 14:17 Hydralazine Hcl 20 Mg/Ml Inj IVP ONCE PRN Hypertension Hydroxyzine Pamoate 25 mg 02/24/24 14:17 Hydroxyzine Pamoate 25 Mg Capsule PO ONCE PRN Lactated Ringer's 1,000 mls @ 100 mls/hr 02/24/24 10:10 02/25/24 07:20 Lactated Ringers 1000 Ml IV Infused .Q10H PRUDENCIO Infusion Sodium Chloride 1,000 mls @ 500 mls/hr 02/24/24 23:15 02/25/24 07:19 0.9 % Sodium Chloride 1000 Ml IV 02/25/24 01:14 Infused .Q2H PRUDENCIO Infusion Labetalol HCl 5 - 10 mg 02/24/24 14:17 Labetalol Hcl 5 Mg/Ml Inj IVP ONCE PRN Hypertension Metoclopramide HCl 10 mg 02/24/24 14:17 Metoclopramide Hcl 5 Mg/Ml Inj IVP ONCE PRN Nausea Midazolam HCl Confirm 02/24/24 13:43 Midazolam Hcl 1 Mg/Ml Inj Administered 02/24/24 13:44 Dose 2 mg .ROUTE .STK-MED ONE Morphine Sulfate 4 mg 02/24/24 16:09 Morphine 2 Mg/Ml Inj IVP Q10M PRN Non-Formulary Medication 2 mg 02/24/24 18:00 02/24/24 19:28 Aflibercept [Eylea] INTRAVITRE Not Given Q4W PRUDENCIO Non-Formulary Medication 5 mg 02/24/24 17:46 Glipizide PO HS PRN Ondansetron HCl Confirm 02/24/24 14:07 Ondansetron 2 Mg/Ml Inj Administered 02/24/24 14:08 Dose 4 mg .ROUTE .STK-MED ONE Ondansetron HCl 4 mg 02/24/24 14:17 Ondansetron 2 Mg/Ml Inj IVP ONCE PRN Nausea Phenylephrine HCl 100 mcg 02/24/24 14:17 Phenylephrine 100 Mcg/Ml Syringe IVP Q5M PRN Phenylephrine HCl Confirm 02/24/24 15:46 Phenylephrine 100 Mcg/Ml Syringe Administered 02/24/24 15:47 Dose 1,000 mcg IVP .STK-MED ONE Propofol Confirm 02/24/24 14:07 Propofol 10 Mg/Ml Inj Administered 02/24/24 14:08 Dose 200 mg IVP .STK-MED ONE Propofol Confirm 02/24/24 15:15 Propofol 10 Mg/Ml Inj Administered 02/24/24 15:16 Dose 200 mg IVP .STK-MED ONE Sevoflurane Confirm 02/24/24 15:29 Sevoflurane Soln Administered 02/24/24 15:30 Dose 1 each IH .STK-MED ONE Sodium Chloride 10 ml 02/24/24 10:06 02/24/24 12:20 Sodium Chloride 0.9 % (Flush) 10 Ml Syringe IVF 10 ml .FLUSH PRN Administration Sodium Zirconium Cyclosilicate 10 gm 02/24/24 23:07 02/25/24 00:04 Sodium Zirconium Cyclosilicate 10 Gm PO 02/24/24 23:08 10 gm ONCE ONE Administration Sodium Zirconium Cyclosilicate 10 gm 02/25/24 04:10 02/25/24 04:22 Sodium Zirconium Cyclosilicate 10 Gm PO 02/25/24 04:11 10 gm ONCE ONE Administration Vasopressin 20 unit 02/24/24 11:38 Vasopressin 20 Unit/Ml Inj IV 02/24/24 11:39 .STK-MED ONE Allergies Allergy/AdvReac Type Severity Reaction Status Date / Time daptomycin Allergy Severe Drug Verified 02/24/24 12:01 induced leukopenia atorvastatin Allergy Verified 02/24/24 12:01 vancomycin Allergy Verified 02/24/24 12:01 hydromorphone [From Dilaudid] AdvReac Intermediate Nausea Verified 02/24/24 12:01 Objective - Infectious Disease Objective Vital Signs: Vital Signs - 24 hr 02/24/24 17:00 02/24/24 17:15 02/24/24 18:00 Temperature 97.7 F 97.8 F Pulse Rate Pulse Rate [Left Pulse Oximeter] 70 75 Respiratory Rate 18 18 Blood Pressure Blood Pressure [Left Arm] Blood Pressure [Right Arm] 134/64 132/55 L 143/50 H Pulse Oximetry 97 97 Oxygen Delivery Method Room Air Room Air 02/24/24 18:03 02/24/24 19:02 02/24/24 19:30 Temperature 97.9 F 97.9 F Pulse Rate 75 66 Pulse Rate [Left Pulse Oximeter] Respiratory Rate 18 16 Blood Pressure 140/75 H 130/54 L Blood Pressure [Left Arm] Blood Pressure [Right Arm] Pulse Oximetry 97 97 97 Oxygen Delivery Method Room Air Room Air 02/24/24 20:00 02/24/24 21:00 02/24/24 22:00 Temperature 97.9 F 97.9 F 97.4 F L Pulse Rate 65 72 73 Pulse Rate [Left Pulse Oximeter] Respiratory Rate 18 18 18 Blood Pressure 145/67 H 127/92 H 133/75 Blood Pressure [Left Arm] Blood Pressure [Right Arm] Pulse Oximetry 96 97 97 Oxygen Delivery Method Room Air Room Air Room Air 02/24/24 23:00 02/24/24 23:00 02/24/24 23:00 Temperature 97.9 F Pulse Rate Pulse Rate [Left Pulse Oximeter] 75 77 Respiratory Rate 18 18 18 Blood Pressure Blood Pressure [Left Arm] Blood Pressure [Right Arm] 137/71 Pulse Oximetry 98 98 Oxygen Delivery Method Room Air Room Air 02/24/24 23:00 02/25/24 03:00 02/25/24 07:44 Temperature 97.9 F 97.1 F L 98.4 F Pulse Rate 77 Pulse Rate [Left Pulse Oximeter] 68 86 Respiratory Rate 18 16 16 Blood Pressure 137/71 Blood Pressure [Left Arm] Blood Pressure [Right Arm] 120/55 L 146/74 H Pulse Oximetry 98 94 96 Oxygen Delivery Method Room Air Room Air Room Air 02/25/24 07:44 02/25/24 07:44 02/25/24 09:55 Temperature Pulse Rate 87 Pulse Rate [Left Pulse Oximeter] 86 Respiratory Rate 16 16 Blood Pressure Blood Pressure [Left Arm] Blood Pressure [Right Arm] Pulse Oximetry 96 Oxygen Delivery Method Room Air 02/25/24 11:42 02/25/24 16:01 02/25/24 16:01 Temperature 98.2 F 97.7 F Pulse Rate Pulse Rate [Left Pulse Oximeter] 83 75 75 Respiratory Rate 18 22 22 Blood Pressure Blood Pressure [Left Arm] 136/60 Blood Pressure [Right Arm] 144/69 H Pulse Oximetry 96 96 Oxygen Delivery Method Room Air Room Air 02/25/24 16:01 Temperature Pulse Rate Pulse Rate [Left Pulse Oximeter] Respiratory Rate 22 Blood Pressure Blood Pressure [Left Arm] Blood Pressure [Right Arm] Pulse Oximetry 96 Oxygen Delivery Method Room Air Narrative: Patient was not seen or examined. Results - Infectious Disease Results Labs: 02/24/24 14:45 Knee,Right Gram Stain - Preliminary 02/24/24 14:45 Knee,Right Aerobic Culture - Preliminary Culture in Progress 02/24/24 14:45 Knee,Right Anaerobic Culture - Preliminary Culture in Progress 02/24/24 14:27 Knee,Right Gram Stain - Final 02/24/24 14:27 Knee,Right Aerobic Culture - Preliminary NO GROWTH AFTER 24 HOURS 02/24/24 14:27 Knee,Right Anaerobic Culture - Preliminary Culture in Progress 02/24/24 14:17 Knee,Right Gram Stain - Final 02/24/24 14:17 Knee,Right Aerobic Culture - Preliminary NO GROWTH AFTER 24 HOURS 02/24/24 14:17 Knee,Right Anaerobic Culture - Preliminary Culture in Progress 02/25/24 12:07 Blood Blood Culture - Pending 02/25/24 12:01 Blood Blood Culture - Pending Laboratory Tests 02/25/24 02/25/24 02/25/24 Range/Units 12:01 10:35 03:05 WBC 7.17 (4.50-11.00) K/uL RBC 4.01 L (4.30-5.90) m/uL Hgb 11.1 L (13.5-17.5) gm/dL Hct 35.6 L (37.0-53.0) % MCV 89 (80-100) fL MCH 28 (26-34) pg MCHC 31 L (32-36) gm/dL RDW Coeff of Geovanni 14.7 (11.5-15.5) % Plt Count 264 (140-440) K/uL Neut % (Auto) 88.8 H (42.0-72.0) % Lymph % (Auto) 10.3 L (20-44) % [place] % (Auto) 0.7 (0.0-11.0) % Eos % (Auto) 0.0 (0.0-7.0) % Baso % (Auto) 0.1 (0.0-3.0) % Neut # (Auto) 6.40 (1.7-7.0) K/uL Lymph # (Auto) 0.70 L (0.90-2.90) K/uL [place] # (Auto) 0.10 (0.00-0.90) K/UL Eos # (Auto) 0.00 (0.00-0.50) K/uL Baso # (Auto) 0.01 (0.00-0.30) K/uL Abs Immat Gran (auto) 0.01 (0.00-0.30) K/uL Imm/Tot Granulo (auto) 0.1 % INR (0.91-1.10) VBG pH (7.32-7.43) VBG pCO2 (40-50) mmHG VBG pO2 (25-47) mmHG VBG HCO3 (21-28) mmol/L Sodium 137 136 135 (135-149) mmol/L Potassium 4.3 4.6 5.7 H (3.6-5.1) mmol/L Chloride 102 103 105 (96-114) mmol/L Carbon Dioxide 24 23 21 (20-32) mmol/L Anion Gap 11 10 9 (7-15) mEq/L BUN 39 H 38 H 38 H (7-30) mg/dL Creatinine 1.7 H 1.7 H 1.6 H (0.5-1.5) mg/dL Estimated Creat Clear 34.02 34.02 36.15 Estimated GFR 41 41 44 ml/min Glucose 284 H 330 H 266 H (60-115) mg/dL Hemoglobin A1c (0-5.6) % Lactate (0.5-1.9) mmol/L Calcium 9.1 8.8 8.7 (8.4-10.6) mg/dL Phosphorus (2.5-4.5) mg/dL Total Bilirubin (0.1-1.5) mg/dL Direct Bilirubin (0.0-0.5) mg/dL AST (12-35) U/L ALT (4-50) U/L Alkaline Phosphatase (40-150) U/L Troponin I (0.01-0.04) ng/mL C-Reactive Protein (0.5-1.0) mg/dL NT-Pro-B Natriuret Pep pg/mL Total Protein (6.0-8.3) g/dL Albumin (3.3-5.0) g/dL Procalcitonin (<0.50) ng/mL TSH (0.270-4.20) uIU/mL 02/24/24 Range/Units 22:09 WBC 10.63 (4.50-11.00) K/uL RBC 4.13 L (4.30-5.90) m/uL Hgb 11.4 L (13.5-17.5) gm/dL Hct 36.9 L (37.0-53.0) % MCV 89 (80-100) fL MCH 28 (26-34) pg MCHC 31 L (32-36) gm/dL RDW Coeff of Geovanni 14.8 (11.5-15.5) % Plt Count 271 (140-440) K/uL Neut % (Auto) 92.2 H (42.0-72.0) % Lymph % (Auto) 6.6 L (20-44) % [place] % (Auto) 0.8 (0.0-11.0) % Eos % (Auto) 0.1 (0.0-7.0) % Baso % (Auto) 0.1 (0.0-3.0) % Neut # (Auto) 9.80 H (1.7-7.0) K/uL Lymph # (Auto) 0.70 L (0.90-2.90) K/uL [place] # (Auto) 0.10 (0.00-0.90) K/UL Eos # (Auto) 0.01 (0.00-0.50) K/uL Baso # (Auto) 0.01 (0.00-0.30) K/uL Abs Immat Gran (auto) 0.02 (0.00-0.30) K/uL Imm/Tot Granulo (auto) 0.2 % INR 0.97 (0.91-1.10) VBG pH 7.347 (7.32-7.43) VBG pCO2 47 (40-50) mmHG VBG pO2 31.1 (25-47) mmHG VBG HCO3 26 (21-28) mmol/L Sodium 135 (135-149) mmol/L Potassium 6.0 H (3.6-5.1) mmol/L Chloride 104 (96-114) mmol/L Carbon Dioxide 23 (20-32) mmol/L Anion Gap 8 (7-15) mEq/L BUN 39 H (7-30) mg/dL Creatinine 1.8 H (0.5-1.5) mg/dL Estimated Creat Clear 32.13 Estimated GFR 38 ml/min Glucose 289 H (60-115) mg/dL Hemoglobin A1c 7.0 H (0-5.6) % Lactate 1.2 (0.5-1.9) mmol/L Calcium 9.0 (8.4-10.6) mg/dL Phosphorus 4.0 (2.5-4.5) mg/dL Total Bilirubin 0.4 (0.1-1.5) mg/dL Direct Bilirubin 0.4 (0.0-0.5) mg/dL AST 24 (12-35) U/L ALT 17 (4-50) U/L Alkaline Phosphatase 49 (40-150) U/L Troponin I < 0.01 L (0.01-0.04) ng/mL C-Reactive Protein 1.3 H (0.5-1.0) mg/dL NT-Pro-B Natriuret Pep 450 pg/mL Total Protein 7.0 (6.0-8.3) g/dL Albumin 4.0 (3.3-5.0) g/dL Procalcitonin 0.06 (<0.50) ng/mL TSH 1.420 (0.270-4.20) uIU/mL Impression & Recommendations Recommendations Impression & Recommendations: 78 white male PMH obesity, HTN, diabetes, CKD, mild GERD, dyslipidemia, erectile dysfunction, gout, BL TKA (March 2022), postoperatively was R knee joint was infected (in [place]) s/p poly exchange and completed antibiotics c/b significant red man syndrome, sickness with IV vancomycin (in 2021), further in 02/2023 s/p fall followed by 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 Now last 3 weeks draining superficial abscess this was aspirated (on 02/09/2024) in the Ortho clinic culture positive for MSSA status post p.o. Keflex with no improvement is now directly admitted for PJI. No systemic illness including fevers, chills. On admission WBC 10.6 K, PLT 264, K6 (now 4.3), cr 1.8 (now 1.7), A1c 7, LFT NL, CRP 1.3, BNP 450, Pro-René 0.06, Last imaging (02/03) R XR soft tissue swelling, anteriorly. Was taken to OR (02/23): Cross purulence encountered over the medial tibial metaphysis. Sent for superficial culture. Appeared to sinus tract heading proximally and felt an infection was coming from the knee joint. Deep cultures obtained. Noted some suspicious looking synovium posterior to the patellar tendon which was also sent for cultures. Plan for RT OR next Wednesday or for repeat I&D with reimplantation of the polyethylene. 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 No anaerobes identified 02/23: OR cultures superficial right knee (A): NG 24 hours 02/23: OR cultures Deep right knee (B): NG 24 hours 02/23: OR Cx R knee synovium (C): No organism, culture in progress 02/24 BCx x 2 sets Discussion: Given prior and most recent cultures from the knee growing MSSA okay to continue with monotherapy IV cefepime this will cover MSSA as well as other gram-negative's. If OR cultures is positive for MRSA THEN to we could retry vancomycin if patient is agreeable (very slow infusion) otherwise consider Telavancin (renally dosed) or ceftaroline, okay to hold MRSA coverage for now. Very likely will not need MRSA coverage Reccs: C/w IV cefepime (renally dosed) F/u Bcx and OR cultures Await further OR findings and reimplantation of polyethylene on coming Wednesday tentative plan x 6 weeks of IV antibiotics targeting culture results followed by suppressive antibiotics given retained infected hardware Further Abx plan based on clinical improvement and above results ID will not be able to follow the patient over the weekend. [facility] available only for telephonic calls ([phone]) over the weekend. If patient is still in-house we will follow back on Wednesday
--- NOTE | 2024-02-25 20:07 | PC.NURSE ---
End of Shift: Patient pleasant and cooperative. Patient vitally stable, lungs clear, BS WNL, IV SL and intact. Patient rates right knee pain at most 5/10, 10 of oxy given twice along with scheduled tylenol. Right knee dressing C/D/I. Patient 1 assist/walker. Patient tolerating regular diet and urinating well. Tele=NSR. Blood sugars 234, 273, 206.
[2024-02-25] MEDS: SENNOSIDES 1 TAB TABLET 2 TAB PO (21:07)
[2024-02-25] MEDS: INSULIN GLARGINE,HUM.REC.ANLOG 100 UNIT/ML INSULN.PEN SUBCUT (21:07)
[2024-02-25] MEDS: LACTATED RINGERS 1000 ML 1,000 ML 75 ML IV (21:17)
[2024-02-26] VITALS (11 sets, daily range): BP systolic 123–150; BP diastolic 56–93; PULSE 60–80; RESP 14–20; TEMP 36.5–36.9; O2SAT 94–100
[2024-02-26] MEDS: ACETAMINOPHEN 500 MG TABLET 1000 MG PO ×4 (01:57→18:12)
[2024-02-26] MEDS: CEFEPIME HCL 2 GM in 0.9 % SODIUM CHLORIDE Mini-bag 100 ML IVPB ×3 (01:57→18:12)
--- NOTE | 2024-02-26 06:07 | PC.NURSE ---
Shift note: Pt is doing well with A, walker and GB. Dressing, MIGUELITO wrap and bandage to the right knee appeared clean and dry. No fever reported. Pain level reported at 1. Pt is alert and oriented. Vitally stable.
[2024-02-26 06:43] LABS: Basophils Percent Auto 0.2 % (0.0-3.0); Eosinophils Percent Auto 0.5 % (0.0-7.0); Hematocrit 33.6 % (37.0-53.0); Hemoglobin* 10.3 gm/dL (13.5-17.5); Immature Granulocytes Pct Auto 0.2 %; Lymphocytes Percent Auto 16.2 % (20-44); Mean Corpuscular HGB Conc 31 gm/dL (32-36); Mean Corpuscular Hemoglobin 27 pg (26-34); Mean Corpuscular Volume 89 fL (80-100); Monocytes Percent Auto 7.7 % (0.0-11.0); Neutrophils Percent Auto 75.2 % (42.0-72.0); Platelet Count* 271 K/uL (140-440); RDW Coefficient of Variation % 15.1 % (11.5-15.5); Red Blood Count 3.76 m/uL (4.30-5.90)
[2024-02-26 06:50] LABS: Slide Review Reflex No
[2024-02-26 07:16] LABS: Potassium* 3.8 mmol/L (3.6-5.1); Sodium* 137 mmol/L (135-149)
[2024-02-26 07:19] LABS: Blood Urea Nitrogen* 40 mg/dL (7-30); Creatinine* 1.6 mg/dL (0.5-1.5); Est. Creatinine Clearance* 36.15; Estimated Glomerular Filt Rate 44 ml/min
[2024-02-26] MEDS: LACTOBACILLUS ACIDOPHILUS 1 TABLET 1 TAB PO ×3 (08:18→18:12)
[2024-02-26] MEDS: FERROUS SULFATE 325 MG TABLET PO (09:30)
[2024-02-26] MEDS: RIVAROXABAN 10 MG TABLET PO (09:30)
[2024-02-26] MEDS: SENNOSIDES 1 TAB TABLET 2 TAB PO ×2 (09:30→20:51)
[2024-02-26] MEDS: glipiZIDE 5 MG TABLET 10 MG PO (09:30)
[2024-02-26] MEDS: INSULIN ASPART 100 UNIT/ML SUBCUT (11:57)
--- NOTE | 2024-02-26 13:50 | PM.IMPN1 ---
Progress Note: A&P Assessment and plan (1) Septic joint of right knee joint: Problem details: Hx 1. 05/19 - [place] given IV Vanc and had poly exchange. 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 2. 03/20 - MSSA. IV daptomycin (daptomycin caused eosinophilic pneumonia). staged washout 3. 06/19 TKA 4. 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 - 02/25/24 - no evidence of systemic illness, cultures from washout 02/23 pending. ID consulted [facility]. Recommended BC and continue cefepime until cultures resulted. BCx2 obtained. Planning repeat washout on Wednesday. Will hold off on PICC pending BC. - 02/25 small amt coag neg staph in synovial culture. I called lab and asked them to do further w/u on this. Lab said deep tissue and superficial cultures also have a small amount of something that looks like coag neg staph and we will know more tomorrow. I'll add doxycycline to cover coag neg staph. Continue cefepime and talk with ID on Wednesday. Status: Acute (2) S/P right knee surgery: Problem details: Right total knee arthroplasty irrigation and debridement, poly exchange (02/24/2024, Dr. Tanner) Status: Acute (3) Acute kidney injury superimposed on CKD: Problem details: CKD - 2022 1.4 -1.5 baseline. - 2023 post-op 1.8 with hyperkalemia on an ARB creatinine is 1.8 with a moderate hyperkalemia post op. BEAN - BEAN vs progression from last year and the hyperkalemia is from his ARB; continue to hold ARB; Cr now 1.6, which is likely his new baseline. - 02/25 stop IVF. Start q48h furosemide. Status: Acute (4) Acute hyperkalemia: Problem details: - 02/23 creatinine is 1.8 with a moderate hyperkalemia (6.0) post op. EKG reveals no peaked Ts; hold ARB; will give fluid bolus post -op, one dose of Lokelma - 02/24 Cr 1.6, K down to 5.7 this am. Gave oral furosemide 40mg this am and K is down to 4.3, Cr stable at 1.7. Continue to hold irbesartan. Do not give more furosemide at this time. Recheck BMP in am. - 02/25 Cr 1.6, K 3.8. Monitor. Status: Resolved (5) Type 2 diabetes mellitus: Problem details: A1C 7.0 Bedside glucose checks 200's. Increase - home meds: glipizide and metformin orally; hold metformin due to elevated Cr and hyperkalemia - start lantus, anticipate this will likely be short term - 02/25 glucoses 120s-200, within inpatient goal. Continue current meds Status: Chronic (6) Pulmonary embolus: Problem details: -dx end of February 2023 (after d/c from and home in [place]). completed six months of warfarin -post op course January 2024 - started Xarelto 02/25/24 and will continue for at least 3 months depending on course. Status: Chronic (7) Hypertension: Problem details: propranolol, irbesartan, lasix. irbesartan on hold 2/2 hyperkalemia restart lasix, every other day Status: Chronic Subjective Date Seen: 02/26/24 Interval history: Winston feels fine today. He notes some more swelling in his hands and legs. Pain is well controlled. Exam Narrative: Exam Narrative: General: No acute distress. Awake, alert, oriented. Oropharynx: Clear. Mucous membranes moist. Cardiovascular: Regular rate and rhythm. No murmurs, gallops, or rubs. Respiratory: Clear to auscultation bilaterally. No wheezes or crackles. Abdomen: Bowel sounds present. Soft, nondistended, nontender. Extremities: Right leg is bandaged with an Mich wrap and in a knee immobilizer. Trace bilateral LE edema Const: Vital Signs, click to edit/add: Vital Signs - 24 hr 02/25/24 15:51 02/25/24 16:01 02/25/24 16:01 Temperature 97.7 F Pulse Rate 81 Pulse Rate [Left P ulse Oximeter] 75 75 Respiratory Rate 22 22 Blood Pressure [Le ft Arm] Blood Pressure [Ri ght Arm] 144/69 H Pulse Oximetry 96 Oxygen Delivery Me thod Room Air 02/25/24 16:01 02/25/24 19:00 08/30/24 22:49 Temperature 98.6 F Pulse Rate Pulse Rate [Left P ulse Oximeter] 70 75 Respiratory Rate 22 20 20 Blood Pressure [Le ft Arm] 146/68 H Blood Pressure [Ri ght Arm] Pulse Oximetry 96 96 Oxygen Delivery Me thod Room Air Room Air 02/25/24 22:49 02/25/24 22:49 02/25/24 22:57 Temperature 98.6 F Pulse Rate 76 Pulse Rate [Left P ulse Oximeter] 70 Respiratory Rate 20 20 Blood Pressure [Le ft Arm] 160/82 H Blood Pressure [Ri ght Arm] Pulse Oximetry 96 97 Oxygen Delivery Nd thod Room Air Room Air 02/26/24 02:03 02/26/24 08:24 02/26/24 08:24 Temperature 97.8 F 97.7 F Pulse Rate Pulse Rate [Left P ulse Oximeter] 66 77 77 Respiratory Rate 20 16 16 Blood Pressure [Le ft Arm] 150/82 H Blood Pressure [Ri ght Arm] 147/66 H Pulse Oximetry 94 95 Oxygen Delivery Nd thod Room Air Room Air 02/26/24 08:24 02/26/24 08:29 02/26/24 12:04 Temperature 97.8 F Pulse Rate 80 Pulse Rate [Left P ulse Oximeter] 64 Respiratory Rate 16 16 Blood Pressure [Le ft Arm] 150/93 H Blood Pressure [Ri ght Arm] Pulse Oximetry 95 100 Oxygen Delivery Nd thod Room Air Room Air Labs Labs: Laboratory Results - last 24 hr 02/26/24 05:48 WBC 12.20 H RBC 3.76 L Hgb 10.3 L Hct 33.6 L MCV 89 MCH 27 MCHC 31 L RDW Coeff of Geovanni 15.1 Plt Count 271 Neut % (Auto) 75.2 H Lymph % (Auto) 16.2 L [place] % (Auto) 7.7 Eos % (Auto) 0.5 Baso % (Auto) 0.2 Neut # (Auto) 9.20 H Lymph # (Auto) 2.00 [place] # (Auto) 0.90 Eos # (Auto) 0.10 Baso # (Auto) 0.00 Abs Immat Gran (auto) 0.00 Imm/Tot Granulo (auto) 0.2 Sodium 137 Potassium 3.8 BUN 40 H Creatinine 1.6 H Estimated Creat Clear 36.15 Estimated GFR 44
[2024-02-26] MEDS: DOXYCYCLINE HYCLATE 100 MG in 0.9 % SODIUM CHLORIDE Mini-bag 100 ML IVPB (14:46)
--- NOTE | 2024-02-26 18:52 | PC.NURSE ---
End of Shift: Patient pleasant and cooperative. Patient vitally stable, lungs clear, BS WNL, IV SL and intact. Patient rates pain at most 2/10, only scheduled tylenol given. Patient 1 assist/walker. Patient tolerating regular diet and used urinal. Patient up in chair all day. Left dressing old drainage outlined, C/D/I. Active ice used on right knee wound. Tele= NSR. blood sugars 123, 154, 126.
[2024-02-26] MEDS: OXYCODONE 5 MG TABLET PO (20:51)
[2024-02-26] MEDS: INSULIN GLARGINE,HUM.REC.ANLOG 100 UNIT/ML INSULN.PEN SUBCUT (20:54)
[2024-02-27] VITALS (7 sets, daily range): BP systolic 117–159; BP diastolic 63–84; PULSE 58–67; RESP 12–16; TEMP 36.6–37.2; O2SAT 93–100
[2024-02-27] MEDS: OXYCODONE 5 MG TABLET PO ×3 (01:10→23:30)
[2024-02-27] MEDS: DOXYCYCLINE HYCLATE 100 MG in 0.9 % SODIUM CHLORIDE Mini-bag 100 ML IVPB ×2 (01:11→14:17)
[2024-02-27] MEDS: CEFEPIME HCL 2 GM in 0.9 % SODIUM CHLORIDE Mini-bag 100 ML IVPB ×3 (02:28→18:44)
[2024-02-27] MEDS: ACETAMINOPHEN 500 MG TABLET 1000 MG PO ×4 (05:30→23:30)
[2024-02-27 06:41] LABS: Basophils Absolute Auto 0.06 K/uL (0.00-0.30); Basophils Percent Auto 0.7 % (0.0-3.0); Eosinophils Absolute Auto 0.38 K/uL (0.00-0.50); Eosinophils Percent Auto 4.6 % (0.0-7.0); Hematocrit 37.4 % (37.0-53.0); Hemoglobin* 11.5 gm/dL (13.5-17.5); Immature Granulocytes Abs Auto 0.02 K/uL (0.00-0.30); Immature Granulocytes Pct Auto 0.2 %; Lymphocytes Absolute Auto 2.46 K/uL (0.90-2.90); Lymphocytes Percent Auto 29.5 % (20-44); Mean Corpuscular HGB Conc 31 gm/dL (32-36); Mean Corpuscular Hemoglobin 28 pg (26-34); Mean Corpuscular Volume 90 fL (80-100); Monocytes Percent Auto 9.5 % (0.0-11.0); Neutrophils Absolute Auto 4.63 K/uL (1.7-7.0); Neutrophils Percent Auto 55.5 % (42.0-72.0); Platelet Count* 270 K/uL (140-440); RDW Coefficient of Variation % 15.2 % (11.5-15.5); Red Blood Count 4.17 m/uL (4.30-5.90); White Blood Count* 8.34 K/uL (4.50-11.00)
[2024-02-27 06:47] LABS: Slide Review Reflex No
[2024-02-27 06:56] LABS: Potassium* 3.9 mmol/L (3.6-5.1); Sodium* 138 mmol/L (135-149)
[2024-02-27 06:58] LABS: Creatinine* 1.4 mg/dL (0.5-1.5); Est. Creatinine Clearance* 41.31; Estimated Glomerular Filt Rate 52 ml/min
[2024-02-27 06:59] LABS: Blood Urea Nitrogen* 38 mg/dL (7-30)
[2024-02-27] MEDS: LACTOBACILLUS ACIDOPHILUS 1 TABLET 1 TAB PO ×3 (08:04→18:27)
[2024-02-27] MEDS: FERROUS SULFATE 325 MG TABLET PO (08:51)
[2024-02-27] MEDS: RIVAROXABAN 10 MG TABLET PO (08:52)
[2024-02-27] MEDS: SENNOSIDES 1 TAB TABLET 2 TAB PO ×2 (08:52→20:55)
[2024-02-27] MEDS: glipiZIDE 5 MG TABLET 10 MG PO (08:52)
[2024-02-27] MEDS: METFORMIN 500 MG TABLET PO (08:52)
[2024-02-27] MEDS: 0.9 % SODIUM CHLORIDE 250 ml IV (10:22)
[2024-02-27] MEDS: INSULIN ASPART 100 UNIT/ML SUBCUT (14:11)
--- NOTE | 2024-02-27 14:51 | PM.IMPN1 ---
Progress Note: A&P Assessment and plan (1) Septic joint of right knee joint: Problem details: Hx 1. 05/19 - [place] given IV Vanc and had poly exchange. 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 2. 03/20 - MSSA. IV daptomycin (daptomycin caused eosinophilic pneumonia). staged washout 3. 06/19 TKA 4. 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 - 02/25/24 - no evidence of systemic illness, cultures from washout 02/23 pending. ID consulted [facility]. Recommended BC and continue cefepime until cultures resulted. BCx2 obtained. Planning repeat washout on Wednesday. Will hold off on PICC pending BC. - 02/25 small amt coag neg staph in synovial culture. I called lab and asked them to do further w/u on this. Lab said deep tissue and superficial cultures also have a small amount of something that looks like coag neg staph and we will know more tomorrow. I'll add doxycycline to cover coag neg staph. Continue cefepime and talk with ID on Wednesday. - 02/26 small amount of coag-negative staph isolated from all samples cultured 02/24/2024. Susceptibilities are pending. Blood cultures x2 from 02/25/2024 are negative for 48 hours. Continue IV cefepime and IV doxycycline. Await susceptibilities. Status: Acute (2) S/P right knee surgery: Problem details: Right total knee arthroplasty irrigation and debridement, poly exchange (02/24/2024, Dr. Tanner) Status: Acute (3) Acute kidney injury superimposed on CKD: Problem details: CKD - 2022 1.4 -1.5 baseline. - 2023 post-op 1.8 with hyperkalemia on an ARB creatinine is 1.8 with a moderate hyperkalemia post op. BEAN - BEAN vs progression from last year and the hyperkalemia is from his ARB; continue to hold ARB; Cr now 1.6, which is likely his new baseline. - 02/25 stop IVF. - 02/26 creatinine returned to baseline, now at 1.4, potassium stable at 3.9. Start q48h furosemide. Status: Acute (4) Acute hyperkalemia: Problem details: - 02/23 creatinine is 1.8 with a moderate hyperkalemia (6.0) post op. EKG reveals no peaked Ts; hold ARB; will give fluid bolus post -op, one dose of Lokelma - 02/24 Cr 1.6, K down to 5.7 this am. Gave oral furosemide 40mg this am and K is down to 4.3, Cr stable at 1.7. Continue to hold irbesartan. Do not give more furosemide at this time. Recheck BMP in am. - 02/25 Cr 1.6, K 3.8. Monitor. Status: Resolved (5) Type 2 diabetes mellitus: Problem details: A1C 7.0 Bedside glucose checks 200's. Increase - home meds: glipizide and metformin orally; hold metformin due to elevated Cr and hyperkalemia - start lantus, anticipate this will likely be short term - 02/25 glucoses 99-180, within inpatient goal. Continue current meds Status: Chronic (6) Pulmonary embolus: Problem details: -dx end of February 2023 (after d/c from and home in [place]). completed six months of warfarin -post op course January 2024 - started Xarelto 02/25/24 and will continue for at least 3 months depending on course. Will check with ortho to see if this needs to be held before washout. Status: Chronic (7) Hypertension: Problem details: propranolol, irbesartan, lasix. irbesartan on hold indefinitely 2/2 hyperkalemia restart lasix, every other day Status: Chronic Subjective Time Seen by Provider: 09:27 Date Seen: 02/27/24 Interval history: Winston is feeling well. He does note some twinges of a burning-type pain in his knee that comes and goes. Exam Narrative: Exam Narrative: General: No acute distress. Awake, alert, oriented. Cardiovascular: Regular rate and rhythm. No murmurs, gallops, or rubs. Respiratory: Clear to auscultation bilaterally. No wheezes or crackles. Abdomen: Bowel sounds present. Soft, nondistended, nontender. Extremities: Right leg is bandaged with an Mich wrap and in a knee immobilizer. Trace bilateral LE edema, unchanged. Const: Vital Signs, click to edit/add: Vital Signs - 24 hr 08/31/24 15:01 02/26/24 15:01 02/26/24 15:01 Temperature 97.9 F Pulse Rate [Left P ulse Oximeter] 60 60 Respiratory Rate 14 14 14 Blood Pressure [Le ft Arm] 123/56 L Pulse Oximetry 98 98 Oxygen Delivery Ri thod Room Air 02/26/24 19:06 02/26/24 20:52 02/26/24 21:52 Temperature 98.4 F 98.4 F 98.2 F Pulse Rate [Left P ulse Oximeter] 69 69 Respiratory Rate 16 16 Blood Pressure [Le ft Arm] 131/64 139/73 Pulse Oximetry 96 97 Oxygen Delivery Ri thod Room Air Room Air 02/26/24 22:06 02/26/24 22:07 02/27/24 02:30 Temperature 97.9 F Pulse Rate [Left P ulse Oximeter] 69 63 Respiratory Rate 16 16 16 Blood Pressure [Le ft Arm] 117/67 Pulse Oximetry 97 [facility] 02/27/24 05:30 02/27/24 07:38 02/27/24 07:38 Temperature 97.9 F 98 F Pulse Rate [Left P ulse Oximeter] 58 L 58 L Respiratory Rate 12 12 Blood Pressure [Le ft Arm] 140/77 H Pulse Oximetry 97 [facility] 02/27/24 07:38 02/27/24 11:00 Temperature 98.1 F Pulse Rate [Left P ulse Oximeter] 62 Respiratory Rate 12 14 Blood Pressure [Le ft Arm] 142/67 H Pulse Oximetry 97 96 Oxygen Delivery Ri thod Room Air Room Air Labs Labs: Laboratory Results - last 24 hr 02/27/24 05:40 WBC 8.34 RBC 4.17 L Hgb 11.5 L Hct 37.4 MCV 90 MCH 28 MCHC 31 L RDW Coeff of Geovanni 15.2 Plt Count 270 Neut % (Auto) 55.5 Lymph % (Auto) 29.5 [place] % (Auto) 9.5 Eos % (Auto) 4.6 Baso % (Auto) 0.7 Neut # (Auto) 4.63 Lymph # (Auto) 2.46 [place] # (Auto) 0.80 Eos # (Auto) 0.38 Baso # (Auto) 0.06 Abs Immat Gran (auto) 0.02 Imm/Tot Granulo (auto) 0.2 Sodium 138 Potassium 3.9 BUN 38 H Creatinine 1.4 Estimated Creat Clear 41.31 Estimated GFR 52
--- NOTE | 2024-02-27 18:04 | PC.NURSE ---
End of Shift: Patient pleasant and cooperative. Patient vitally stable, lungs clear, BS WNL, IV SL and intact. Patient rates right knee pain at most 2/10, only scheduled tylenol given. Patient SBA/walker. Right knee dressing C/D/I, with old drainage. Patient up in chair for majority of shift. Tolerating regular diet, urinating, and had 1 BM. Patient did have a period of nausea, no med given. Blood sugars 99, 183, and 82.
[2024-02-27] MEDS: INSULIN GLARGINE,HUM.REC.ANLOG 100 UNIT/ML INSULN.PEN SUBCUT (20:56)
[2024-02-28] MEDS: DOXYCYCLINE HYCLATE 100 MG in 0.9 % SODIUM CHLORIDE Mini-bag 100 ML IVPB (01:31)
[2024-02-28] MEDS: CEFEPIME HCL 2 GM in 0.9 % SODIUM CHLORIDE Mini-bag 100 ML IVPB ×3 (02:38→19:05)
[2024-02-28 03:17] VITALS: BP 146/84; PULSE 65; RESP 16; TEMP 36.5; O2SAT 100
[2024-02-28] MEDS: ACETAMINOPHEN 500 MG TABLET 1000 MG PO ×3 (06:08→23:31)
--- NOTE | 2024-02-28 06:45 | PC.NURSE ---
Pt is alert and oriented x3. Afebrile. Pt reports 1-5/10 pain in right knee ?the pain comes and goes, most of the time its 1-2/10 but it can spike up?randomly?and then goes back down again??pain managed with PRN medications. Right knee immobilizer on throughout night. Pt is up SBA, voiding and tolerating a regular diet. ??
[2024-02-28 06:46] LABS: Chloride* 104 mmol/L (96-114); Sodium* 135 mmol/L (135-149)
[2024-02-28 06:47] LABS: Potassium* 4.1 mmol/L (3.6-5.1)
[2024-02-28 06:49] LABS: Creatinine* 1.3 mg/dL (0.5-1.5); Est. Creatinine Clearance* 44.49; Estimated Glomerular Filt Rate 57 ml/min
[2024-02-28 06:50] LABS: Anion Gap 7 mEq/L (7-15); Blood Urea Nitrogen* 32 mg/dL (7-30); Calcium* 9.2 mg/dL (8.4-10.6); Carbon Dioxide* 24 mmol/L (20-32); Glucose* 172 mg/dL (60-115)
[2024-02-28 08:20] VITALS: BP 159/83; PULSE 69; RESP 18; TEMP 36.6; O2SAT 98
[2024-02-28] MEDS: FUROSEMIDE 20 MG TABLET PO (08:41)
[2024-02-28] MEDS: LACTOBACILLUS ACIDOPHILUS 1 TABLET 1 TAB PO ×3 (08:42→18:58)
[2024-02-28] MEDS: METFORMIN 500 MG TABLET PO (08:42)
[2024-02-28] MEDS: FERROUS SULFATE 325 MG TABLET PO (08:42)
[2024-02-28] MEDS: glipiZIDE 5 MG TABLET 10 MG PO (08:42)
--- NOTE | 2024-02-28 09:53 | PM.IMPN1 ---
Progress Note: A&P Assessment and plan (1) Septic joint of right knee joint: Problem details: Hx 1. 05/19 - [place] given IV Vanc and had poly exchange. 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 2. 03/20 - MSSA. IV daptomycin (daptomycin caused eosinophilic pneumonia). staged washout 3. 06/19 TKA 4. 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 - 02/25/24 - no evidence of systemic illness, cultures from washout 02/23 pending. ID consulted [facility]. Recommended BC and continue cefepime until cultures resulted. BCx2 obtained. Planning repeat washout on Wednesday. Will hold off on PICC pending BC. - 02/25 small amt coag neg staph in synovial culture. I called lab and asked them to do further w/u on this. Lab said deep tissue and superficial cultures also have a small amount of something that looks like coag neg staph and we will know more tomorrow. I'll add doxycycline to cover coag neg staph. Continue cefepime and talk with ID on Wednesday. - 02/27 small amount of Staphylococcus saprophyticus from all samples cultured 02/24/2024, pansensitive. Blood cultures x2 from 02/25/2024 are negative for 48 hours. Continue IV cefepime, stop doxycycline, discuss with ID tomorrow. Planning another washout tomorrow, holding xarelto, NPO after MN. Status: Acute (2) S/P right knee surgery: Problem details: Right total knee arthroplasty irrigation and debridement, poly exchange (02/24/2024, Dr. Tanner) Status: Acute (3) Acute kidney injury superimposed on CKD: Problem details: CKD - 2022 1.4 -1.5 baseline. - 2023 post-op 1.8 with hyperkalemia on an ARB creatinine is 1.8 with a moderate hyperkalemia post op. BEAN - BEAN vs progression from last year and the hyperkalemia is from his ARB; continue to hold ARB; Cr now 1.6, which is likely his new baseline. - 02/25 stop IVF. - 02/26 creatinine returned to baseline, now at 1.4, potassium stable at 3.9. q48h furosemide. - 02/27 Cr improving yet at 1.3 today. Continue q48h furosemide. Status: Acute (4) Type 2 diabetes mellitus: Problem details: A1C 7.0 Bedside glucose checks 200's. Increase - home meds: glipizide and metformin orally; hold metformin due to elevated Cr and hyperkalemia - start lantus, anticipate this will likely be short term - 02/25 glucoses 99-180, within inpatient goal. Continue current meds - 02/26 restarted metformin - 02/27 BG 90s-100, stop lantus, hold metformin, glipizide for surgery tomorrow Status: Chronic (5) Pulmonary embolus: Problem details: -dx end of February 2023 (after d/c from and home in [place]). completed six months of warfarin -post op course January 2024 - started Xarelto 02/25/24 and will continue for at least 3 months depending on course. Holding Xarelto today for washout tomorrow. Status: Chronic (6) Hypertension: Problem details: propranolol, irbesartan, lasix. irbesartan on hold indefinitely 2/2 hyperkalemia lasix, every other day Status: Chronic (7) Acute hyperkalemia: Problem details: - 02/23 creatinine is 1.8 with a moderate hyperkalemia (6.0) post op. EKG reveals no peaked Ts; hold ARB; will give fluid bolus post -op, one dose of Lokelma - 02/24 Cr 1.6, K down to 5.7 this am. Gave oral furosemide 40mg this am and K is down to 4.3, Cr stable at 1.7. Continue to hold irbesartan. Do not give more furosemide at this time. Recheck BMP in am. - 02/25 Cr 1.6, K 3.8. Monitor. RESOLVED Status: Resolved Subjective Time Seen by Provider: 07:29 Date Seen: 02/28/24 Interval history: Winston feels well. He notes the swelling in his hands and legs is much better today. The burning sensations in his leg are also a bit less frequent and less intense today. Exam Narrative: Exam Narrative: General: No acute distress. Awake, alert, oriented. Cardiovascular: Regular rate and rhythm. No murmurs, gallops, or rubs. Respiratory: Clear to auscultation bilaterally. No wheezes or crackles. Abdomen: Bowel sounds present. Soft, nondistended, nontender. Extremities: Right leg is bandaged with an Mich wrap and in a knee immobilizer. Trace bilateral LE edema, unchanged. Const: Vital Signs, click to edit/add: Vital Signs - 24 hr 02/27/24 11:00 02/27/24 15:15 02/27/24 15:15 Temperature 98.1 F 98.9 F Pulse Rate [Left P ulse Oximeter] 62 63 63 Respiratory Rate 14 16 16 Blood Pressure [Le ft Arm] 142/67 H 130/63 Blood Pressure [Ri ght Arm] Pulse Oximetry 96 97 Oxygen Delivery Me thod Room Air Room Air 02/27/24 15:15 02/27/24 20:11 02/27/24 20:11 Temperature 98.2 F Pulse Rate [Left P ulse Oximeter] 67 Respiratory Rate 16 16 16 Blood Pressure [Le ft Arm] Blood Pressure [Ri ght Arm] 137/70 Pulse Oximetry 97 100 100 Oxygen Delivery Me thod Room Air Room Air Room Air 02/27/24 23:36 02/28/24 03:17 02/28/24 08:20 Temperature 98.4 F 97.7 F Pulse Rate [Left P ulse Oximeter] 63 65 69 Respiratory Rate 16 16 18 Blood Pressure [Le ft Arm] Blood Pressure [Ri ght Arm] 159/84 H 146/84 H Pulse Oximetry 93 100 Oxygen Delivery Nm thod Room Air Room Air 02/28/24 08:20 02/28/24 08:20 Temperature 97.8 F Pulse Rate [Left P ulse Oximeter] 69 Respiratory Rate 18 18 Blood Pressure [Le ft Arm] Blood Pressure [Ri ght Arm] 159/83 H Pulse Oximetry 98 98 Oxygen Delivery Me thod Room Air Room Air Labs Labs: Laboratory Results - last 24 hr 02/28/24 06:12 Sodium 135 Potassium 4.1 Chloride 104 Carbon Dioxide 24 Anion Gap 7 BUN 32 H Creatinine 1.3 Estimated Creat Clear 44.49 Estimated GFR 57 Glucose 172 H Calcium 9.2
[2024-02-28] MEDS: 0.9 % SODIUM CHLORIDE 250 ml IV (10:55)
[2024-02-28 11:00] VITALS: BP 163/94; PULSE 62; RESP 18; TEMP 36.6; O2SAT 98
[2024-02-28 15:20] VITALS: BP 134/71; PULSE 68; RESP 18; TEMP 36.5; O2SAT 99
--- NOTE | 2024-02-28 20:03 | PC.NURSE ---
Pt pleasant and cooperative. Up with SBA and crutches within room. Rates pain 0-5/10 spasm in right knee.
[2024-02-28] MEDS: SODIUM CHLORIDE 0.9 % (FLUSH) 10 ML SYRINGE 5 ML IVF (20:16)
[2024-02-28 20:18] VITALS: BP 129/70; PULSE 82; RESP 16; TEMP 36.8; O2SAT 94
[2024-02-28] MEDS: OXYCODONE 5 MG TABLET PO (23:32)
[2024-02-28 23:34] VITALS: BP 127/70; PULSE 73; RESP 16; TEMP 37; O2SAT 96
[2024-02-28] MEDS: LACTATED RINGERS 1000 ML 1,000 ML 125 ML IV (23:39)
[2024-02-29] VITALS (23 sets, daily range): BP systolic 128–152; BP diastolic 69–98; PULSE 58–81; RESP 12–20; TEMP 36.3–37; O2SAT 92–100; BMI 35.4
[2024-02-29] MEDS: CEFEPIME HCL 2 GM in 0.9 % SODIUM CHLORIDE Mini-bag 100 ML IVPB (02:16)
[2024-02-29] MEDS: SODIUM CHLORIDE 0.9 % (FLUSH) 10 ML SYRINGE 5 ML IVF (06:15)
[2024-02-29] MEDS: ONDANSETRON 2 MG/ML inj 4 MG IVP (06:15)
[2024-02-29 06:39] LABS: Basophils Absolute Auto 0.06 K/uL (0.00-0.30); Basophils Percent Auto 0.7 % (0.0-3.0); Eosinophils Absolute Auto 0.49 K/uL (0.00-0.50); Eosinophils Percent Auto 5.6 % (0.0-7.0); Hematocrit 39.2 % (37.0-53.0); Hemoglobin* 12.3 gm/dL (13.5-17.5); Immature Granulocytes Abs Auto 0.04 K/uL (0.00-0.30); Immature Granulocytes Pct Auto 0.5 %; Lymphocytes Absolute Auto 2.27 K/uL (0.90-2.90); Mean Corpuscular HGB Conc 31 gm/dL (32-36); Mean Corpuscular Hemoglobin 28 pg (26-34); Mean Corpuscular Volume 88 fL (80-100); Monocytes Percent Auto 8.6 % (0.0-11.0); Neutrophils Absolute Auto 5.12 K/uL (1.7-7.0); Neutrophils Percent Auto 58.6 % (42.0-72.0); Platelet Count* 275 K/uL (140-440); RDW Coefficient of Variation % 15.2 % (11.5-15.5); Red Blood Count 4.45 m/uL (4.30-5.90); White Blood Count* 8.73 K/uL (4.50-11.00)
[2024-02-29 06:53] LABS: Slide Review Reflex No
[2024-02-29 07:01] LABS: Chloride* 101 mmol/L (96-114); Potassium* 3.9 mmol/L (3.6-5.1); Sodium* 138 mmol/L (135-149)
[2024-02-29 07:04] LABS: Anion Gap 11 mEq/L (7-15); Carbon Dioxide* 26 mmol/L (20-32); Creatinine* 1.5 mg/dL (0.5-1.5); Est. Creatinine Clearance* 38.56; Estimated Glomerular Filt Rate 48 ml/min
[2024-02-29 07:05] LABS: Blood Urea Nitrogen* 32 mg/dL (7-30); Calcium* 9.8 mg/dL (8.4-10.6); Glucose* 157 mg/dL (60-115)
--- NOTE | 2024-02-29 07:31 | W.PM.IDPRG_ITS ---
Visit Information Visit Information Visit Information: Patient was not seen. Subjective Subjective Subjective: This patient recommendation is based on a telemedicine consult request which was completed asynchronously through chart review and information provided by the primary physician. The patient was not seen or examined today. The evaluation is consultative in nature and all patient care and treatment decisions can either be accepted or rejected by the patient's primary hospital-based treating physician using their own independent medical judgment for their patient. 02/29/24 update: Labs reviewed: leukocytosis resolved WBC down to 8.34<12.2K>10.63K, H&H stable, plat 270K, serum Cr overall trending down but trended back up today, latest GFR 48, blood cx 02/24 NGTD, 02/23 Rt knee shallow and deep cx, as well as Rt knee synovium Cx with growth of staph saprophyticus pansensitive: (sensitive to Oxa, rifampin, doxy) Home Medications and Allergies Home Medications and Allergies Inpatient Medications: Active Medications Generic Name Dose Route Start Last Admin Trade Name Freq PRN Reason Stop Dose Admin Acetaminophen 1,000 mg 02/24/24 18:00 02/29/24 06:08 Acetaminophen 500 Mg Tablet PO Not Given Q6H PRUDENCIO Aspirin 81 mg 02/24/24 21:00 02/24/24 20:59 Aspirin 81 Mg Tablet Ec PO 81 mg BID PRUDENCIO Administration Bisacodyl 10 mg 02/24/24 17:32 Bisacodyl 10 Mg Supp.Rect MS DAILY PRN Constipation Diphenhydramine HCl 25 - 50 mg 02/24/24 17:32 Diphenhydramine 50 Mg/Ml Inj IVP Q3H PRN Itching Ferrous Sulfate 325 mg 02/25/24 09:00 02/28/24 08:42 Ferrous Sulfate 325 Mg Tablet PO 325 mg DAILY PRUDENCIO Administration Furosemide 20 mg 02/28/24 08:00 02/28/24 08:41 Furosemide 20 Mg Tablet PO 20 mg Q48H PRUDENCIO Administration Glipizide 10 mg 02/25/24 09:00 02/28/24 08:42 Glipizide 5 Mg Tablet PO 10 mg QAM PRUDENCIO Administration Hydromorphone HCl 0.2 - 0.5 mg 02/24/24 17:32 Hydromorphone 0.5 Mg/0.5 Ml Inj IVP Q1H PRN Pain Cefepime HCl 2 gm/ Sodium 100 mls @ 200 mls/hr 02/24/24 18:30 02/29/24 02:50 Chloride IVPB Infused Q8H PRUDENCIO Infusion Lactated Ringer's 1,000 mls @ 125 mls/hr 02/28/24 23:20 02/28/24 23:39 Lactated Ringers 1000 Ml IV 125 mls/hr .Q8H PRUDENCIO Administration Insulin Aspart 0 unit 02/25/24 07:30 02/28/24 21:31 Insulin Aspart 100 Unit/Ml SUBCUT Not Given ACHS [facility] Protocol Lactobacillus Acidophilus 1 tab 02/25/24 08:00 02/28/24 18:58 Lactobacillus Acidophilus 1 Tablet PO 1 tab TIDWM PRUDENCIO Administration Lidocaine/Aluminum/Magnesium/Simeth 15 - 30 ml 02/24/24 17:32 Mag Hydrox/Aluminum Hyd/Simeth 30 Ml Oral.Susp PO Q2H PRN Indigestion Metformin HCl 500 mg 02/25/24 09:00 02/28/24 08:42 Metformin 500 Mg Tablet PO 500 mg DAILY PRUDENCIO Administration Morphine Sulfate 4 mg 02/24/24 17:39 Morphine 2 Mg/Ml Inj IVP Q2H PRN Ondansetron HCl 4 mg 02/24/24 17:32 02/29/24 06:15 Ondansetron 2 Mg/Ml Inj IVP 4 mg Q4H PRN Administration Nausea And Vomiting Oxycodone HCl 2.5 - 10 mg 02/24/24 17:32 02/28/24 23:32 Oxycodone 5 Mg Tablet PO 10 mg Q2H PRN Administration Pain Propranolol HCl 120 mg 02/25/24 09:00 02/28/24 08:48 Propranolol 60 Mg Er Cap PO 120 mg DAILY PRUDENCIO Administration Rivaroxaban 10 mg 02/25/24 09:00 02/27/24 08:52 Rivaroxaban 10 Mg Tablet PO 10 mg DAILY PRUDENCIO Administration Sennosides 2 tab 02/24/24 21:00 02/28/24 20:32 Sennosides 1 Tab Tablet PO Not Given BID PRUDENCIO Sodium Chloride 500 ml 02/24/24 17:32 0.9 % Sodium Chloride 500 Ml IV Q4H PRN OLIGURIA Sodium Chloride 250 ml 02/27/24 10:15 02/28/24 10:55 0.9 % Sodium Chloride 250 Ml IV 250 ml Q24H PRUDENCIO Administration Sodium Chloride 5 ml 02/28/24 09:37 02/29/24 06:15 Sodium Chloride 0.9 % (Flush) 10 Ml Syringe IVF 5 ml .FLUSH PRN Administration Sodium Chloride 5 ml 02/28/24 21:00 02/28/24 20:16 Sodium Chloride 0.9 % (Flush) 10 Ml Syringe IVF 5 ml BID PRUDENCIO Administration Discontinued Medications Generic Name Dose Route Start Last Admin Trade Name Freq PRN Reason Stop Dose Admin Cefazolin Sodium 2 gm 02/24/24 10:06 02/24/24 14:02 Cefazolin 2 Gm Inj IVP 02/24/24 10:07 2 gm ONCE ONE Administration Cefazolin Sodium Confirm 02/24/24 14:07 Cefazolin 2 Gm Inj Administered 02/24/24 14:08 Dose 2 gm .ROUTE .STK-MED ONE Chloroprocaine HCl Confirm 02/24/24 14:07 Chloroprocaine Pf 2 % 20 Ml Vial Administered 02/24/24 14:08 Dose 20 ml INJECTION .STK-MED ONE Cyclobenzaprine HCl 5 mg 02/24/24 17:46 Cyclobenzaprine Hcl 10 Mg Tablet PO Q12H PRN Ephedrine Sulfate 5 - 10 mg 02/24/24 14:17 Ephedrine Sulfate 5 Mg/Ml Inj IVP Q5M PRN Ephedrine Sulfate Confirm 02/24/24 15:46 Ephedrine Sulfate 5 Mg/Ml Inj Administered 02/24/24 15:47 Dose 25 mg IVP .STK-MED ONE Fentanyl Confirm 02/24/24 13:43 Fentanyl 100 Mcg/2 Ml Inj Administered 02/24/24 13:44 Dose 100 mcg .ROUTE .STK-MED ONE Fentanyl 50 mcg 02/24/24 14:17 Fentanyl 100 Mcg/2 Ml Inj IVP Q5M PRN Fentanyl Confirm 02/24/24 15:32 Fentanyl 100 Mcg/2 Ml Inj Administered 02/24/24 15:33 Dose 100 mcg .ROUTE .STK-MED ONE Furosemide 40 mg 02/25/24 09:20 02/25/24 09:44 Furosemide 40 Mg Tablet PO 40 mg DAILY@0800 PRUDENCIO Administration Hydralazine HCl 10 mg 02/24/24 14:17 Hydralazine Hcl 20 Mg/Ml Inj IVP ONCE PRN Hypertension Hydroxyzine Pamoate 25 mg 02/24/24 14:17 Hydroxyzine Pamoate 25 Mg Capsule PO ONCE PRN Lactated Ringer's 1,000 mls @ 100 mls/hr 02/24/24 10:10 02/25/24 07:20 Lactated Ringers 1000 Ml IV Infused .Q10H PRUDENCIO Infusion Lactated Ringer's 1,000 mls @ 75 mls/hr 02/24/24 17:32 02/26/24 09:34 Lactated Ringers 1000 Ml IV Infused .[id number] PRUDENCIO Infusion Sodium Chloride 1,000 mls @ 500 mls/hr 02/24/24 23:15 02/25/24 07:19 0.9 % Sodium Chloride 1000 Ml IV 02/25/24 01:14 Infused .Q2H PRUDENCIO Infusion Doxycycline Hyclate 100 mg/ 100 mls @ 100 mls/hr 02/26/24 14:00 02/28/24 02:32 Sodium Chloride IVPB Infused Q12H PRUDENCIO Infusion Insulin Glargine 5 unit 02/25/24 21:00 02/27/24 20:56 Insulin Glargine,Hum.Rec.Anlog 100 Unit/Ml Insuln.Pen SUBCUT 5 unit HS PRUDENCIO Administration Irbesartan 75 mg 02/25/24 09:00 Irbesartan 150 Mg Tablet PO DAILY PRUDENCIO Labetalol HCl 5 - 10 mg 02/24/24 14:17 Labetalol Hcl 5 Mg/Ml Inj IVP ONCE PRN Hypertension Metoclopramide HCl 10 mg 02/24/24 14:17 Metoclopramide Hcl 5 Mg/Ml Inj IVP ONCE PRN Nausea Midazolam HCl Confirm 02/24/24 13:43 Midazolam Hcl 1 Mg/Ml Inj Administered 02/24/24 13:44 Dose 2 mg .ROUTE .STK-MED ONE Morphine Sulfate 4 mg 02/24/24 16:09 Morphine 2 Mg/Ml Inj IVP Q10M PRN Non-Formulary Medication 2 mg 02/24/24 18:00 02/24/24 19:28 Aflibercept [Eylea] INTRAVITRE Not Given Q4W PRUDENCIO Non-Formulary Medication 5 mg 02/24/24 17:46 Glipizide PO HS PRN Ondansetron HCl Confirm 02/24/24 14:07 Ondansetron 2 Mg/Ml Inj Administered 02/24/24 14:08 Dose 4 mg .ROUTE .STK-MED ONE Ondansetron HCl 4 mg 02/24/24 14:17 Ondansetron 2 Mg/Ml Inj IVP ONCE PRN Nausea Phenylephrine HCl 100 mcg 02/24/24 14:17 Phenylephrine 100 Mcg/Ml Syringe IVP Q5M PRN Phenylephrine HCl Confirm 02/24/24 15:46 Phenylephrine 100 Mcg/Ml Syringe Administered 02/24/24 15:47 Dose 1,000 mcg IVP .STK-MED ONE Propofol Confirm 02/24/24 14:07 Propofol 10 Mg/Ml Inj Administered 02/24/24 14:08 Dose 200 mg IVP .STK-MED ONE Propofol Confirm 02/24/24 15:15 Propofol 10 Mg/Ml Inj Administered 02/24/24 15:16 Dose 200 mg IVP .STK-MED ONE Sevoflurane Confirm 02/24/24 15:29 Sevoflurane Soln Administered 02/24/24 15:30 Dose 1 each IH .STK-MED ONE Sodium Chloride 10 ml 02/24/24 10:06 02/24/24 12:20 Sodium Chloride 0.9 % (Flush) 10 Ml Syringe IVF 10 ml .FLUSH PRN Administration Sodium Zirconium Cyclosilicate 10 gm 02/24/24 23:07 02/25/24 00:04 Sodium Zirconium Cyclosilicate 10 Gm PO 02/24/24 23:08 10 gm ONCE ONE Administration Sodium Zirconium Cyclosilicate 10 gm 02/25/24 04:10 02/25/24 04:22 Sodium Zirconium Cyclosilicate 10 Gm PO 02/25/24 04:11 10 gm ONCE ONE Administration Vasopressin 20 unit 02/24/24 11:38 Vasopressin 20 Unit/Ml Inj IV 02/24/24 11:39 .STK-MED ONE Allergies Allergy/AdvReac Type Severity Reaction Status Date / Time daptomycin Allergy Severe Drug Verified 02/24/24 12:01 induced leukopenia atorvastatin Allergy Verified 02/24/24 12:01 vancomycin Allergy Verified 02/24/24 12:01 hydromorphone [From Dilaudid] AdvReac Intermediate Nausea Verified 02/24/24 12:01 Objective - Infectious Disease Objective Vital Signs: Vital Signs - 24 hr 02/28/24 08:20 02/28/24 08:20 02/28/24 08:20 Temperature 97.8 F Pulse Rate [Left Pulse Oximeter] 69 69 Respiratory Rate 18 18 18 Blood Pressure [Left Arm] Blood Pressure [Right Arm] 159/83 H Pulse Oximetry 98 98 Oxygen Delivery Method Room Air Room Air 02/28/24 11:00 02/28/24 15:20 02/28/24 15:20 Temperature 97.8 F Pulse Rate [Left Pulse Oximeter] 62 Respiratory Rate 18 18 18 Blood Pressure [Left Arm] 163/94 H Blood Pressure [Right Arm] Pulse Oximetry 98 99 Oxygen Delivery Method Room Air Room Air 02/28/24 15:20 02/28/24 20:18 02/28/24 23:34 Temperature 97.7 F 98.2 F 98.6 F Pulse Rate [Left Pulse Oximeter] 68 82 73 Respiratory Rate 18 16 16 Blood Pressure [Left Arm] 134/71 Blood Pressure [Right Arm] 129/70 127/70 Pulse Oximetry 99 94 96 Oxygen Delivery Method Room Air Room Air Room Air 02/29/24 02:19 Temperature 97.8 F Pulse Rate [Left Pulse Oximeter] 72 Respiratory Rate 18 Blood Pressure [Left Arm] Blood Pressure [Right Arm] 142/79 H Pulse Oximetry 94 Oxygen Delivery Method Room Air Narrative: Patient was not seen or examined. Results - Infectious Disease Results Labs: 02/25/24 12:07 Blood Blood Culture - Preliminary NO GROWTH AFTER 72 HOURS 02/25/24 12:01 Blood Blood Culture - Preliminary NO GROWTH AFTER 72 HOURS 02/24/24 14:45 Knee,Right Gram Stain - Final 02/24/24 14:45 Knee,Right Aerobic Culture - Final 02/24/24 14:45 Knee,Right Anaerobic Culture - Final No growth. 02/24/24 14:27 Knee,Right Gram Stain - Final 02/24/24 14:27 Knee,Right Aerobic Culture - Final 02/24/24 14:27 Knee,Right Anaerobic Culture - Final No growth. 02/24/24 14:17 Knee,Right Gram Stain - Final 02/24/24 14:17 Knee,Right Aerobic Culture - Final Staphylococcus saprophyticus 02/24/24 14:17 Knee,Right Anaerobic Culture - Final No growth. Laboratory Tests 02/29/24 02/28/24 02/27/24 Range/Units 06:20 06:12 05:40 WBC 8.73 8.34 (4.50-11.00) K/uL RBC 4.45 4.17 L (4.30-5.90) m/uL Hgb 12.3 L 11.5 L (13.5-17.5) gm/dL Hct 39.2 37.4 (37.0-53.0) % MCV 88 90 (80-100) fL MCH 28 28 (26-34) pg MCHC 31 L 31 L (32-36) gm/dL RDW Coeff of Geovanni 15.2 15.2 (11.5-15.5) % Plt Count 275 270 (140-440) K/uL Neut % (Auto) 58.6 55.5 (42.0-72.0) % Lymph % (Auto) 26.0 29.5 (20-44) % [place] % (Auto) 8.6 9.5 (0.0-11.0) % Eos % (Auto) 5.6 4.6 (0.0-7.0) % Baso % (Auto) 0.7 0.7 (0.0-3.0) % Neut # (Auto) 5.12 4.63 (1.7-7.0) K/uL Lymph # (Auto) 2.27 2.46 (0.90-2.90) K/uL [place] # (Auto) 0.80 0.80 (0.00-0.90) K/UL Eos # (Auto) 0.49 0.38 (0.00-0.50) K/uL Baso # (Auto) 0.06 0.06 (0.00-0.30) K/uL Abs Immat Gran (auto) 0.04 0.02 (0.00-0.30) K/uL Imm/Tot Granulo (auto) 0.5 0.2 % INR (0.91-1.10) VBG pH (7.32-7.43) VBG pCO2 (40-50) mmHG VBG pO2 (25-47) mmHG VBG HCO3 (21-28) mmol/L Sodium 138 135 138 (135-149) mmol/L Potassium 3.9 4.1 3.9 (3.6-5.1) mmol/L Chloride 101 104 (96-114) mmol/L Carbon Dioxide 26 24 (20-32) mmol/L Anion Gap 11 7 (7-15) mEq/L BUN 32 H 32 H 38 H (7-30) mg/dL Creatinine 1.5 1.3 1.4 (0.5-1.5) mg/dL Estimated Creat Clear 38.56 44.49 41.31 Estimated GFR 48 57 52 ml/min Glucose 157 H 172 H (60-115) mg/dL Hemoglobin A1c (0-5.6) % Lactate (0.5-1.9) mmol/L Calcium 9.8 9.2 (8.4-10.6) mg/dL Phosphorus (2.5-4.5) mg/dL Total Bilirubin (0.1-1.5) mg/dL Direct Bilirubin (0.0-0.5) mg/dL AST (12-35) U/L ALT (4-50) U/L Alkaline Phosphatase (40-150) U/L Troponin I (0.01-0.04) ng/mL C-Reactive Protein (0.5-1.0) mg/dL NT-Pro-B Natriuret Pep pg/mL Total Protein (6.0-8.3) g/dL Albumin (3.3-5.0) g/dL Procalcitonin (<0.50) ng/mL TSH (0.270-4.20) uIU/mL 02/26/24 02/25/24 02/25/24 Range/Units 05:48 12:01 10:35 WBC 12.20 H (4.50-11.00) K/uL RBC 3.76 L (4.30-5.90) m/uL Hgb 10.3 L (13.5-17.5) gm/dL Hct 33.6 L (37.0-53.0) % MCV 89 (80-100) fL MCH 27 (26-34) pg MCHC 31 L (32-36) gm/dL RDW Coeff of Geovanni 15.1 (11.5-15.5) % Plt Count 271 (140-440) K/uL Neut % (Auto) 75.2 H (42.0-72.0) % Lymph % (Auto) 16.2 L (20-44) % [place] % (Auto) 7.7 (0.0-11.0) % Eos % (Auto) 0.5 (0.0-7.0) % Baso % (Auto) 0.2 (0.0-3.0) % Neut # (Auto) 9.20 H (1.7-7.0) K/uL Lymph # (Auto) 2.00 (0.90-2.90) K/uL [place] # (Auto) 0.90 (0.00-0.90) K/UL Eos # (Auto) 0.10 (0.00-0.50) K/uL Baso # (Auto) 0.00 (0.00-0.30) K/uL Abs Immat Gran (auto) 0.00 (0.00-0.30) K/uL Imm/Tot Granulo (auto) 0.2 % INR (0.91-1.10) VBG pH (7.32-7.43) VBG pCO2 (40-50) mmHG VBG pO2 (25-47) mmHG VBG HCO3 (21-28) mmol/L Sodium 137 137 136 (135-149) mmol/L Potassium 3.8 4.3 4.6 (3.6-5.1) mmol/L Chloride 102 103 (96-114) mmol/L Carbon Dioxide 24 23 (20-32) mmol/L Anion Gap 11 10 (7-15) mEq/L BUN 40 H 39 H 38 H (7-30) mg/dL Creatinine 1.6 H 1.7 H 1.7 H (0.5-1.5) mg/dL Estimated Creat Clear 36.15 34.02 34.02 Estimated GFR 44 41 41 ml/min Glucose 284 H 330 H (60-115) mg/dL Hemoglobin A1c (0-5.6) % Lactate (0.5-1.9) mmol/L Calcium 9.1 8.8 (8.4-10.6) mg/dL Phosphorus (2.5-4.5) mg/dL Total Bilirubin (0.1-1.5) mg/dL Direct Bilirubin (0.0-0.5) mg/dL AST (12-35) U/L ALT (4-50) U/L Alkaline Phosphatase (40-150) U/L Troponin I (0.01-0.04) ng/mL C-Reactive Protein (0.5-1.0) mg/dL NT-Pro-B Natriuret Pep pg/mL Total Protein (6.0-8.3) g/dL Albumin (3.3-5.0) g/dL Procalcitonin (<0.50) ng/mL TSH (0.270-4.20) uIU/mL 02/25/24 02/24/24 Range/Units 03:05 22:09 WBC 7.17 10.63 (4.50-11.00) K/uL RBC 4.01 L 4.13 L (4.30-5.90) m/uL Hgb 11.1 L 11.4 L (13.5-17.5) gm/dL Hct 35.6 L 36.9 L (37.0-53.0) % MCV 89 89 (80-100) fL MCH 28 28 (26-34) pg MCHC 31 L 31 L (32-36) gm/dL RDW Coeff of Geovanni 14.7 14.8 (11.5-15.5) % Plt Count 264 271 (140-440) K/uL Neut % (Auto) 88.8 H 92.2 H (42.0-72.0) % Lymph % (Auto) 10.3 L 6.6 L (20-44) % [place] % (Auto) 0.7 0.8 (0.0-11.0) % Eos % (Auto) 0.0 0.1 (0.0-7.0) % Baso % (Auto) 0.1 0.1 (0.0-3.0) % Neut # (Auto) 6.40 9.80 H (1.7-7.0) K/uL Lymph # (Auto) 0.70 L 0.70 L (0.90-2.90) K/uL [place] # (Auto) 0.10 0.10 (0.00-0.90) K/UL Eos # (Auto) 0.00 0.01 (0.00-0.50) K/uL Baso # (Auto) 0.01 0.01 (0.00-0.30) K/uL Abs Immat Gran (auto) 0.01 0.02 (0.00-0.30) K/uL Imm/Tot Granulo (auto) 0.1 0.2 % INR 0.97 (0.91-1.10) VBG pH 7.347 (7.32-7.43) VBG pCO2 47 (40-50) mmHG VBG pO2 31.1 (25-47) mmHG VBG HCO3 26 (21-28) mmol/L Sodium 135 135 (135-149) mmol/L Potassium 5.7 H 6.0 H (3.6-5.1) mmol/L Chloride 105 104 (96-114) mmol/L Carbon Dioxide 21 23 (20-32) mmol/L Anion Gap 9 8 (7-15) mEq/L BUN 38 H 39 H (7-30) mg/dL Creatinine 1.6 H 1.8 H (0.5-1.5) mg/dL Estimated Creat Clear 36.15 32.13 Estimated GFR 44 38 ml/min Glucose 266 H 289 H (60-115) mg/dL Hemoglobin A1c 7.0 H (0-5.6) % Lactate 1.2 (0.5-1.9) mmol/L Calcium 8.7 9.0 (8.4-10.6) mg/dL Phosphorus 4.0 (2.5-4.5) mg/dL Total Bilirubin 0.4 (0.1-1.5) mg/dL Direct Bilirubin 0.4 (0.0-0.5) mg/dL AST 24 (12-35) U/L ALT 17 (4-50) U/L Alkaline Phosphatase 49 (40-150) U/L Troponin I < 0.01 L (0.01-0.04) ng/mL C-Reactive Protein 1.3 H (0.5-1.0) mg/dL NT-Pro-B Natriuret Pep 450 pg/mL Total Protein 7.0 (6.0-8.3) g/dL Albumin 4.0 (3.3-5.0) g/dL Procalcitonin 0.06 (<0.50) ng/mL TSH 1.420 (0.270-4.20) uIU/mL Assessment and Plan Assessment and Plan Assessment and Plan: 78 white male PMH obesity, HTN, diabetes, CKD, mild GERD, dyslipidemia, erectile dysfunction, gout, BL 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 ?Now in the last 3 weeks, pt with draining superficial knee abscess which was aspirated (on 02/09/2024) in the Ortho clinic, culture positive for MSSA, status post p.o. Keflex with no improvement, pt was then directly admitted for management of PJI. ?No systemic illness including fevers, chills. Per Ortho note, pt had a p reviously infected right total knee arthroplasty. This was treated with a two- stage exchange. He has done well up until several weeks ago he developed cellulitis over his tibia. This has come to an area of fluctuance over the pes anserinus. Despite 3 weeks of Keflex the area persists. Therefore, I&D was recommended, and Ortho informed the patient, that this area likely communicates with the knee, so he was directly admitted for I&D of the Rt knee and poly exchange. On admission WBC 10.6 K, PLT 264, K6 (now 4.3), cr 1.8 (now 1.7), A1c 7, LFT NL, CRP 1.3, BNP 450, Pro-René 0.06, Last imaging (02/03) R XR soft tissue swelling, anteriorly. Pt was taken to OR (02/23): Gross purulence encountered over the medial tibial metaphysis. ?Sent for superficial culture. ?Appeared to sinus tract heading p roximally and felt an infection was coming from the knee joint. ?Deep cultures obtained. ?Noted some suspicious looking synovium posterior to the patellar tendon which was also sent for cultures. ?Plan for return to OR this week: Wednesday or for repeat I&D with reimplantation of the polyethylene. 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 # Post op course 01/2024, started on Xarelto 02/24 and will be on it for at least 3 months. Micro: 02/08R knee: MSSA (pansensitive). ?No anaerobes identified 02/23: OR cultures superficial right knee (A): small amount of coag negative staph 02/23: OR cultures Deep right knee (B): small amount of coag negative staph 02/23: OR Cx R knee synovium (C): coag negative staph 02/24 BCx x 2 sets, NGTD 02/29/24 update: Labs reviewed: leukocytosis resolved WBC down to 8.34<12.2K>10.63K, H&H stable, plat 270K, serum Cr overall trending down but trended back up today, latest GFR 48, blood cx 02/24 NGTD, 02/23 Rt knee shallow and deep cx, as well as Rt knee synovium Cx with growth of staph saprophyticus pansensitive: (sensitive to Oxa, rifampin, doxy) Discussion: Given prior and most recent cultures from the knee growing MSSA and now all OR culture with growth of Oxa sensitive coag negative staph/staph saprophyticus, I suggest narrowing cefepime to IV cefazolin 2 gr q8hr with monitoring of labs including cbc/diff and BMP. Would avoid adding rifampin due to risk for drug-drug interaction with Xarelto. Pt will need a 6 week course of IV Abx targeting MSSA and oxacillin sensitive Coag negative staph followed by chronic PO Abx suppression. Recommendations: -To switch IV cefepime to IV cefazolin 2 gr q8hr, this dosing is for Cr clearance>30. -Per Medicine Note, the patient will be on Xarelto for at least 3 months, in this case, I would avoid adding rifampin due to risk for drug-drug interaction between rifampin and Xarelto. -While on IV Abx, please monitor labs with CBC/diff and CMP. -Await further OR findings and reimplantation of polyethylene this week. -Pt is going to OR for another washout, follow up new OR cx if they get sent. -As stated above, tentative plan x 6 weeks of IV antibiotics targeting culture results (MSSA and Oxa S CONS) followed by suppressive antibiotics given retained infected hardware, doxycycline 100 mg PO BID would be an oral option x chronic suppression with less risk for potential adverse events including C diff infection, cefadroxil 500 mg PO BID is another oral Abx option for chronic suppression. -Thanks for the consult, you can call tele ID with questions. Gavino Tamez MD [facility]
--- NOTE | 2024-02-29 07:43 | PC.NURSE ---
Pt is alert and oriented x3. Afebrile. Pt reports 1-5/10 pain in right knee?pain managed with PRN medications. Pt had 1 episode of emesis 400ml output PRN Zofran given with relief. BS at HS 202 updated MD Ann, no insulin given d/t NPO for surgery. Pt is up SBA, voiding and tolerating an NPO diet since 0000.
[2024-02-29] MEDS: FERROUS SULFATE 325 MG TABLET PO (08:52)
[2024-02-29] MEDS: SENNOSIDES 1 TAB TABLET 2 TAB PO (08:53)
[2024-02-29] MEDS: LACTOBACILLUS ACIDOPHILUS 1 TABLET 1 TAB PO ×3 (08:53→18:19)
[2024-02-29] MEDS: LACTATED RINGERS 1000 ML 1,000 ML 125 ML IV (08:58)
[2024-02-29] MEDS: CEFAZOLIN 2 GM in 0.9 % SODIUM CHLORIDE Mini-bag 100 ML IVPB ×3 (09:36→18:19)
--- NOTE | 2024-02-29 10:00 | PC.SOCIAL ---
Addendum entered by DERICK Prince 02/29/24 17:00: Discharge planning: The prescription for the medication was faxed to Daysi at [facility] late this afternoon, fax #[phone]. It sounds like Daysi will come to the hospital tomorrow at some time(will know time tomorrow morning most likely) to teach the pt how to administer the antibiotics once he is home. Social work to follow-up as needed. Addendum entered by DERICK Prince 02/29/24 16:34: Discharge planning: park worker received an email from Daysi at [facility] stating that pt's Medicare will cover the cost of medication at 80% and the pt will be responsible for the other 20%. 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 park worker updated Daysi at [facility] with this information. park worker also let Daysi know that the dosing times are 6pm, 2am and 10am per the charge nurse on duty. Daysi also plans to reach out to the pt via phone this afternoon. Social work to follow-up as needed. Original Note: Discharge planning: Met with pt regarding d/c plan. Pt would like to return to his home in [place] and receive home IV abx there as his first choice. Pt would be able to stay with son in [place], [place] if needed, but would rather be at his own home in [place]. Pt had lived in [place] until three years ago, so still has supportive community of family and friends in [place]. At pt request, called [facility] [phone] and spoke with Daysi. Daysi states they can likely deliver the abx to pt's home in [place] and will check on insurance coverage of this. Daysi states a [place] physician is not able to order home care for pt and that he would need to secure an order for home care from his Primary Care Physician in [place] if this is needed. 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 Pt states he would likley just go into his primary care physician office weekly for labs and have them check the IV at the office at that time. Pt is pleased with the plan for home IV abx in [place]. park worker to follow up and confirm plans with Eveline. Secure emailed requwested information to Daysi at [facility] and awaiting decision on [facility] accepting this referral. park worker to follow up as needed.
--- NOTE | 2024-02-29 10:40 | P.IMPN_ITS ---
Progress Note: A&P Assessment and plan (1) Septic joint of right knee joint: Problem details: Hx 1. 05/19 - [place] given IV Vanc and had poly exchange. 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 2. 03/20 - MSSA. IV daptomycin (daptomycin caused eosinophilic pneumonia). staged washout 3. 06/19 TKA 4. 02/09/24 abscess aspiration in [facility] grew MSSA Current admission: - 02/24/24 Washout (poly exchange and abx seeds) - started cefepime for pseudomonas coverage; 3rd recurrent infection. - 02/25/24 - no evidence of systemic illness, cultures from washout 02/23 pending. [facility]. Recommended BC and continue cefepime until cultures resulted. BCx2 obtained. Planning repeat washout on Wednesday. Will hold off on PICC pending BC. - 02/25 small amt coag neg staph in synovial culture. I called lab and asked them to do further w/u on this. Lab said deep tissue and superficial cultures also have a small amount of something that looks like coag neg staph and we will know more tomorrow. I'll add doxycycline to cover coag neg staph. Continue cefepime and talk with ID on Wednesday. - 02/27 small amount of Staphylococcus saprophyticus from all samples cultured 02/24/2024, pansensitive. Blood cultures x2 from 02/25/2024 are negative for 48 hours. Continue IV cefepime, stop doxycycline, discuss with ID tomorrow. Planning another washout tomorrow, holding xarelto, NPO after MN. - 02/28 ID recommends cefazolin 2g IV q8h. I've started this and stopped cefepime. Washout today at 11am. BC x 2 negative, so I've also ordered PICC. I've spoken with SW about discharge planning for home antibiotics for 6 weeks. Status: Acute (2) S/P right knee surgery: Problem details: Right total knee arthroplasty irrigation and debridement, poly exchange (02/24/2024, Dr. Tanner) Status: Acute (3) Acute kidney injury superimposed on CKD: Problem details: CKD - 2022 1.4 -1.5 baseline. - 2023 post-op 1.8 with hyperkalemia on an ARB creatinine is 1.8 with a moderate hyperkalemia post op. BEAN - BEAN vs progression from last year and the hyperkalemia is from his ARB; continue to hold ARB; Cr now 1.6, which is likely his new baseline. - 02/25 stop IVF. - 02/26 creatinine returned to baseline, now at 1.4, potassium stable at 3.9. q48h furosemide. - 02/27 Cr improving yet at 1.3 today. Continue q48h furosemide. - 02/28 Cr 1.5. May be increasing because of recently restarting furosemide. Monitor Status: Acute (4) Type 2 diabetes mellitus: Problem details: A1C 7.0 Bedside glucose checks 200's. Increase - home meds: glipizide and metformin orally; hold metformin due to elevated Cr and hyperkalemia - start lantus, anticipate this will likely be short term - 02/25 glucoses 99-180, within inpatient goal. Continue current meds - 02/26 restarted metformin - 02/27 BG 90s-100, stop lantus, hold metformin, glipizide for surgery tomorrow - 02/28 restart metforming and glipizide after surgery Status: Chronic (5) Pulmonary embolus: Problem details: -dx end of February 2023 (after d/c from and home in [place]). completed six months of warfarin -post op course January 2024 - started Xarelto 02/25/24 and will continue for at least 3 months depending on course. Holding Xarelto today for washout. Status: Chronic (6) Hypertension: Problem details: propranolol, irbesartan, lasix. irbesartan on hold indefinitely 2/2 hyperkalemia lasix, every other day Status: Chronic (7) Acute hyperkalemia: Problem details: - 02/23 creatinine is 1.8 with a moderate hyperkalemia (6.0) post op. EKG reveals no peaked Ts; hold ARB; will give fluid bolus post -op, one dose of Lokelma - 02/24 Cr 1.6, K down to 5.7 this am. Gave oral furosemide 40mg this am and K is down to 4.3, Cr stable at 1.7. Continue to hold irbesartan. Do not give more furosemide at this time. Recheck BMP in am. - 02/25 Cr 1.6, K 3.8. Monitor. RESOLVED Status: Resolved Time Spent With Patient Total time spent: Today I spent 25 minutes rounding on the patient. Greater than 50% included discussing care with the patient, social work, the team, reviewing data, updating and managing the care plan. Subjective Time Seen by Provider: 08:11 Date Seen: 02/29/24 Interval history: Winston feels well. He is getting a right knee washout mid day today. He is NPO. I have reviewed ID's note from this morning and have talked with Winston about the recommendations. He is willing to self administer home antibiotics. Exam Narrative: Exam Narrative: General: No acute distress. Awake, alert, oriented. Cardiovascular: Regular rate and rhythm. No murmurs, gallops, or rubs. Respiratory: Clear to auscultation bilaterally. No wheezes or crackles. Extremities: Right leg is bandaged with an [place] wrap and in a knee immobilizer. Trace bilateral LE edema, unchanged. Const: Vital Signs, click to edit/add: Vital Signs - 24 hr 02/28/24 11:00 02/28/24 15:20 02/28/24 15:20 Temperature 97.8 F Pulse Rate [Left P ulse Oximeter] 62 Respiratory Rate 18 18 18 Blood Pressure [Le ft Arm] 163/94 H Blood Pressure [Ri ght Arm] Pulse Oximetry 98 99 Oxygen Delivery Me thod Room Air Room Air 02/28/24 15:20 02/28/24 20:18 02/28/24 23:34 Temperature 97.7 F 98.2 F 98.6 F Pulse Rate [Left P ulse Oximeter] 68 82 73 Respiratory Rate 18 16 16 Blood Pressure [Le ft Arm] 134/71 Blood Pressure [Ri ght Arm] 129/70 127/70 Pulse Oximetry 99 94 96 Oxygen Delivery Me thod Room Air Room Air Room Air 02/29/24 02:19 02/29/24 07:00 Temperature 97.8 F 98.4 F Pulse Rate [Left P ulse Oximeter] 72 66 Respiratory Rate 18 16 Blood Pressure [Le ft Arm] Blood Pressure [Ri ght Arm] 142/79 H 134/71 Pulse Oximetry 94 98 Oxygen Delivery Me thod Room Air Room Air Labs Labs: Laboratory Results - last 24 hr 02/29/24 06:20 WBC 8.73 RBC 4.45 Hgb 12.3 L Hct 39.2 MCV 88 MCH 28 MCHC 31 L RDW Coeff of Geovanni 15.2 Plt Count 275 Neut % (Auto) 58.6 Lymph % (Auto) 26.0 [place] % (Auto) 8.6 Eos % (Auto) 5.6 Baso % (Auto) 0.7 Neut # (Auto) 5.12 Lymph # (Auto) 2.27 [place] # (Auto) 0.80 Eos # (Auto) 0.49 Baso # (Auto) 0.06 Abs Immat Gran (auto) 0.04 Imm/Tot Granulo (auto) 0.5 Sodium 138 Potassium 3.9 Chloride 101 Carbon Dioxide 26 Anion Gap 11 BUN 32 H Creatinine 1.5 Estimated Creat Clear 38.56 Estimated GFR 48 Glucose 157 H Calcium 9.8
[2024-02-29] MEDS: LACTATED RINGERS 1000 ML 1,000 ML 100 ML IV (12:20)
[2024-02-29] MEDS: fentaNYL 100 MCG/2 ML inj IVP (12:30)
[2024-02-29] MEDS: MIDAZOLAM HCL 1 MG/ML inj IVP (12:30)
--- NOTE | 2024-02-29 12:47 | P.NB_ITS ---
Nerve Block Nerve Block Time Seen by Provider: 12:33 Date Seen: 02/29/24 Type of block requested by surgeon for post-operative analgesia: geniculars Side: right Time out performed: Yes Verification of patient name: Yes Verification of date of : Yes Site marking: site marked Name of person performing procedure: Cole Continuous monitoring Was continuous monitoring of O2 sat, B/P, monitor technician, recorded every 15 minutes?: Yes Procedure Checklist: sterile prep, needles and gloves Medications given in 5ml increments after negative aspiration: Ropivicaine %: 0.5 mL: 9 Needle gauge: 25 Patient tolerated procedure well: Yes Block Charges Block Charge (with Pro Fee): Genicular Nerve Block Use of Ultrasound Machine for Block: No
--- NOTE | 2024-02-29 12:47 | W.PM.NB ---
Nerve Block Nerve Block Time Seen by Provider: 12:33 Date Seen: 02/29/24 Type of block requested by surgeon for post-operative analgesia: adductor canal Side: right Time out performed: Yes Verification of patient name: Yes Verification of date of : Yes Site marking: site marked Name of person performing procedure: Cole Continuous monitoring Was continuous monitoring of O2 sat, B/P, traffic monitor specialist, recorded every 15 minutes?: Yes Procedure Checklist: sterile prep, needles and gloves Ultrasound guided. Images saved: Yes Medications given in 5ml increments after negative aspiration: Ropivicaine %: 0.5 mL: 20 Needle gauge: 20 Decadron (mg): 10 Precedex (mcg): 25 Patient tolerated procedure well: Yes Additional comments: Needle noted adjacent to nerve Block Charges Block Charge (with Pro Fee): Femoral Nerve Use of Ultrasound Machine for Block: Yes- US Guidance/pain block
--- NOTE | 2024-02-29 12:48 | W.ANESCHARGE ---
Anesthesia Charges Start Date/Time Anesthesia Start Date: 02/29/24 Anesthesia Start Time: 12:37 Stop Date/Time Anesthesia Stop Date: 02/29/24 Anesthesia Stop Time: 14:24 Summary Extremes of Age - Over 70 or under 1: MDA
--- NOTE | 2024-02-29 13:12 | SUR.OPER ---
13 ANTIBIOTIC BEADS ON A STRING REMOVED FROM RIGHT KNEE INCISIONAL AREA
--- NOTE | 2024-02-29 13:19 | SUR.OPER ---
CULTURES: 1) SUPERFICIAL RIGHT KNEE, 2) DEEP RIGHT KNEE
--- NOTE | 2024-02-29 13:51 | P.ORPRC_ITS ---
Procedure Note Date of procedure: 02/29/24 Procedure: PREOPERATIVE DIAGNOSIS: Septic right total knee arthroplasty POSTOPERATIVE DIAGNOSIS: Septic right total knee arthroplasty NAME OF OPERATION: Right total knee arthroplasty irrigation and debridement, poly exchange SURGEON: Miguel Tanner MD EDUCATION PROGRAM COORDINATOR: FABI Holliday ANESTHESIA: Spinal ESTIMATED BLOOD LOSS: 25 mL COMPLICATIONS: None SPECIMENS: Gram stain, Aerobic and anaerobic cultures x2, labeled superficial and deep right knee DRAINS: None PREOPERATIVE ANTIBIOTICS: Ancef 2 grams IMPLANTS: 1. J&J attune #8, 16 mm rotating platform, constrained posterior stabilized polyethylene INDICATIONS: The patient is taken back to the operating room today for repeat irrigation and debridement of his septic right total knee arthroplasty, with poly exchange. The risks, benefits and expected outcomes were discussed in detail. These included but were not limited to: Infection, bleeding, injury to blood vessel or nerve, venous thromboembolism. All questions were answered to their satisfaction. Use of an syrup mixer assistant was necessary throughout the case for patient positioning and safety, soft tissue retraction, and closure. PROCEDURE: Spinal anesthesia was administered. The patient was placed supine on the operating table. The syrup mixer assistant made sure the patient was positioned appropriately. The lower extremity was prepped and draped in the usual sterile fashion. The tourniquet was not utilized. The skin sutures were removed. The superficial culture was obtained from the lateral gutter, superficial to the extensor mechanism. The PDS suture in the extensor mechanism was removed. The joint was entered. The deep culture was taken from the central aspect of the joint. We removed the antibiotic beads. They were all accounted for. The polyethylene was removed. We irrigated the knee with 9 L of normal saline via pulse lavage. The wound appears clean, without ongoing infection. A minimal amount of synovium was debrided with rongeur. We placed a #8, 16 mm constrained, rotating platform posterior stabilized Attune polyethylene. The knee was taken through range of motion was found to be stable. The extensor mechanism was closed with interrupted #1 Vicryl suture. This was reinforced with a 0 Stratafix running suture. The skin and subcu were closed with a 3-0 and 4-0 Stratafix in a running fashion. The dressing was applied. Sponge and needle counts were correct x2. The patient tolerated the procedure well. There were no apparent complications. They were carefully transferred to the hospital bed and taken to the postanesthesia care unit in satisfactory condition. PLAN: The patient may be mobilized with physical therapy weight-bearing as tolerates. Range of motion will be unrestricted. He may be discharged home once medically appropriate.
--- NOTE | 2024-02-29 14:02 | SUR.OPER ---
IMMOBILIZER PLACED ON RIGHT LEG BY PHYSICIAN ENDOSCOPY TECHNICIAN
[2024-02-29] MEDS: fentaNYL 100 MCG/2 ML inj 50 MCG IVP ×2 (14:24→14:40)
--- NOTE | 2024-02-29 14:42 | P.ANES_ITS ---
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
[2024-02-29] MEDS: ACETAMINOPHEN 500 MG TABLET 1000 MG PO ×2 (18:18→23:43)
--- NOTE | 2024-02-29 19:36 | PC.NURSE ---
End of shift [id number]: Pt is alert and oriented x3, pleasant. VSS, Afebrile post op. Pt reports 1-3/10 pain in right knee?pain managed with ice. Relief noted. Pt denies V/D/N/CP/SOB. Pt is tolerating regular diet/fluids well. Pt using urinal in bed. Post op site is CDI in Knee mobilizer. Pedal pulses present. Pt appears resting comfortably at the end of the shift, call light within reach.
[2024-02-29] MEDS: LACTATED RINGERS 1000 ML 1,000 ML 75 ML IV (20:21)
[2024-02-29] MEDS: ASPIRIN 81 MG TABLET EC PO (21:47)
[2024-02-29] MEDS: INSULIN ASPART 100 UNIT/ML SUBCUT (21:53)
[2024-03-01] MEDS: CEFAZOLIN 2 GM in 0.9 % SODIUM CHLORIDE Mini-bag 100 ML IVPB ×2 (01:59→09:56)
[2024-03-01] MEDS: MAG HYDROX/ALUMINUM HYD/SIMETH 30 ML ORAL.SUSP PO (02:12)
[2024-03-01 02:14] VITALS: BP 135/85; PULSE 70; RESP 18; TEMP 36.6; O2SAT 97
[2024-03-01] MEDS: ACETAMINOPHEN 500 MG TABLET 1000 MG PO ×2 (05:45→11:56)
[2024-03-01 06:21] LABS: Hematocrit 33.5 % (37.0-53.0); Hemoglobin* 10.7 gm/dL (13.5-17.5); Immature Granulocytes Abs Auto 0.03 K/uL (0.00-0.30); Immature Granulocytes Pct Auto 0.4 %; Lymphocytes Percent Auto 16.1 % (20-44); Mean Corpuscular HGB Conc 32 gm/dL (32-36); Mean Corpuscular Hemoglobin 28 pg (26-34); Mean Corpuscular Volume 88 fL (80-100); Monocytes Percent Auto 5.7 % (0.0-11.0); Neutrophils Percent Auto 77.8 % (42.0-72.0); Platelet Count* 246 K/uL (140-440); RDW Coefficient of Variation % 15.1 % (11.5-15.5); Red Blood Count 3.82 m/uL (4.30-5.90); White Blood Count* 7.57 K/uL (4.50-11.00)
[2024-03-01 06:23] LABS: Slide Review Reflex No
--- NOTE | 2024-03-01 06:46 | PC.NURSE ---
End of shift note ([id number]): Patient pleasant, alert and oriented. Stood at bedside without any difficulty. Reported that he felt more balanced. Given scheduled Tylenol and ice pack. Reported earlier in shift that he was having intermittent pain rated 5/10 lasting approx 4 sec. Otherwise denies pain. PRN Maalox effective for upset stomach. Picc line placed by Picc Stat this morning.
[2024-03-01 06:54] LABS: Potassium* 4.3 mmol/L (3.6-5.1); Sodium* 134 mmol/L (135-149)
--- NOTE | 2024-03-01 06:54 | CRLHL7_ITS ---
For Patients: As a result of the Cures Act, medical imaging exams and procedure reports are released immediately into your electronic medical record. You may view this report before your referring provider. If you have questions, please contact your health care provider. INDICATION: PICC line placement. COMPARISON: 03/23/2023 TECHNIQUE: 1 view. FINDINGS: Medical Devices: Right PICC line with its tip at or just below the right superior cavoatrial junction. Lung Volumes: Shallow inspiration. No significant atelectasis. Lungs: Clear lungs. Pleura and Pleural spaces: No significant pleural effusion. No pneumothorax. Mediastinum: Normal cardiomediastinal silhouette. Bony Thorax and Soft Tissues: No significant incidental findings. Chronic healed fracture deformity of the left clavicle. IMPRESSION: Right PICC line with its tip at or just below the right superior cavoatrial junction. Dictated by Peter Forrest MD @ 03/01/2024 7:30:03 AM (Electronically Signed)
[2024-03-01 06:56] LABS: INR 0.98 (0.91-1.10); Prothrombin Time 13.6 Seconds
[2024-03-01 06:57] LABS: Creatinine* 1.3 mg/dL (0.5-1.5); Est. Creatinine Clearance* 44.49; Estimated Glomerular Filt Rate 57 ml/min
[2024-03-01 06:58] LABS: Blood Urea Nitrogen* 33 mg/dL (7-30)
[2024-03-01 07:00] VITALS: BP 146/67; PULSE 64; RESP 20; TEMP 37.1; O2SAT 96
--- NOTE | 2024-03-01 07:52 | PC.NURSE ---
This was to be completed by the night nurse. Documented what I saw on the PICC Stat paper document
[2024-03-01] MEDS: glipiZIDE 5 MG TABLET 10 MG PO (08:28)
[2024-03-01] MEDS: RIVAROXABAN 10 MG TABLET PO (08:28)
[2024-03-01] MEDS: METFORMIN 500 MG TABLET PO (08:29)
[2024-03-01] MEDS: ASPIRIN 81 MG TABLET EC PO (08:29)
[2024-03-01] MEDS: LACTOBACILLUS ACIDOPHILUS 1 TABLET 1 TAB PO ×2 (08:29→11:56)
[2024-03-01] MEDS: FERROUS SULFATE 325 MG TABLET PO (08:29)
[2024-03-01] MEDS: SODIUM CHLORIDE 0.9 % (FLUSH) 10 ML SYRINGE 5 ML IVF (08:29)
[2024-03-01] MEDS: FUROSEMIDE 20 MG TABLET PO (08:29)
--- NOTE | 2024-03-01 10:28 | PM.DS1 ---
DS: Providers Provider Date Seen: 03/01/24 Date of admission: 02/24/24 18:03 Primary care physician: Not a Local Provider Admitting Clinician: Lacey Dc MD Consults: 02/24/24 17:32 Consult to Occupational Therapy [CONS] Routine Comment: Reason(s) for OT Consult:: ADLs Prior to Discharge Any Restrictions?:: No Restrictions Comment: Consult to Physical Therapy [CONS] Routine Comment: Ambulate in the fay today Reason(s) for PT Consult:: Evaluate and Treat Any Restrictions?:: No Restrictions Comment: Nursing Activity Consult to Physician [CONS] Routine Comment: Consulting Provider: Hospitalists Has provider been notified: No Consult to Curing Room Worker [CONS] Routine Comment: Reason for Consult:: Discharge Planning Needs 02/24/24 18:07 Consult to Physical Therapy [CONS] Routine Comment: Reason(s) for PT Consult:: Impaired ROM Any Restrictions?:: See Comment Comment: R knee immobilizer.... per patient Dr Tanner does not want the patient to bend it but ok to bear weight 02/25/24 09:16 Consult to Nutrition [CONS] Routine Comment: Reason for consult:: Nutritional Consult Comment: renal diet, hyperkalemia 02/25/24 16:51 Consult to Infectious Diseases [CONS] Routine Comment: Consulting Provider: [facility] Consult priority: Urgent Has provider been notified: Yes Call back required?: No 02/29/24 15:23 Consult to Occupational Therapy [CONS] Routine Comment: Reason(s) for OT Consult:: ADLs Prior to Discharge Any Restrictions?:: See Comment Comment: See nursing activity order for any restrictions. Consult to Physical Therapy [CONS] Routine Comment: Ambulate in the fay today. Reason(s) for PT Consult:: TKA TX Protocol POD#0 Any Restrictions?:: See Comment Comment: See nursing activity order for any restrictions. Consult to Physician [CONS] Routine Comment: Consulting Provider: Nelson Has provider been notified: No Consult to Curing Room Worker [CONS] Routine Comment: Reason for Consult:: Discharge Planning Needs Attending Physician on discharge: Babita Coy MD Date of Discharge: 03/01/24 DS: Diagnosis Discharge Diagnosis (1) Septic joint of right knee joint: Status: Acute Problem details: Hx 1. 05/19 - [place] given IV Vanc and had poly exchange. 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 2. 03/20 - MSSA. IV daptomycin (daptomycin caused eosinophilic pneumonia). staged washout 3. 06/19 TKA 4. 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 - 02/25/24 - no evidence of systemic illness, cultures from washout 02/23 pending. ID consulted judith. Recommended BC and continue cefepime until cultures resulted. BCx2 obtained. Planning repeat washout on Wednesday. Will hold off on PICC pending BC. - 02/25 small amt coag neg staph in synovial culture. I called lab and asked them to do further w/u on this. Lab said deep tissue and superficial cultures also have a small amount of something that looks like coag neg staph and we will know more tomorrow. I'll add doxycycline to cover coag neg staph. Continue cefepime and talk with ID on Wednesday. - 02/27 small amount of Staphylococcus saprophyticus from all samples cultured 02/24/2024, pansensitive. Blood cultures x2 from 02/25/2024 are negative for 48 hours. Continue IV cefepime, stop doxycycline, discuss with ID tomorrow. Planning another washout tomorrow, holding xarelto, NPO after MN. - 02/28 ID recommends cefazolin 2g IV q8h. I've started this and stopped cefepime. Washout today at 11am. BC x 2 negative, so I've also ordered PICC. I've spoken with SW about discharge planning for home antibiotics for 6 weeks. - 02/28 Cefazolin, PICC dressing changes and labs set up for outpatient. Discharging in stable and improved condition today. (2) S/P right knee surgery: Status: Acute Problem details: Right total knee arthroplasty irrigation and debridement, poly exchange (02/24/2024, Dr. Tanner) Right total knee arthroplasty irrigation and debridement, poly exchange (02/29/24 Dr. Tanner) (3) Acute kidney injury superimposed on CKD: Status: Acute Problem details: CKD - 2022 1.4 -1.5 baseline. - 2023 post-op 1.8 with hyperkalemia on an ARB creatinine is 1.8 with a moderate hyperkalemia post op. BEAN - BEAN vs progression from last year and the hyperkalemia is from his ARB; continue to hold ARB; Cr now 1.6, which is likely his new baseline. - 02/25 stop IVF. - 02/26 creatinine returned to baseline, now at 1.4, potassium stable at 3.9. q48h furosemide. - 02/27 Cr improving yet at 1.3 today. Continue q48h furosemide. - 02/28 Cr 1.5. May be increasing because of recently restarting furosemide. Monitor - 03/01 Cr 1.3 (4) Type 2 diabetes mellitus: Status: Chronic Problem details: A1C 7.0 Bedside glucose checks 200's. Increase - home meds: glipizide and metformin orally; hold metformin due to elevated Cr and hyperkalemia - start lantus, anticipate this will likely be short term - 02/25 glucoses 99-180, within inpatient goal. Continue current meds - 02/26 restarted metformin - 02/27 BG 90s-100, stop lantus, hold metformin, glipizide for surgery tomorrow - 02/28 restart metforming and glipizide after surgery (5) Pulmonary embolus: Status: Chronic Problem details: -dx end of February 2023 (after d/c from and home in [place]). completed six months of warfarin -post op course January 2024 - started Xarelto 02/25/24 and will continue for at least 3 months depending on course. Holding Xarelto today for washout. (6) Acute hyperkalemia: Status: Resolved Problem details: - 02/23 creatinine is 1.8 with a moderate hyperkalemia (6.0) post op. EKG reveals no peaked Ts; hold ARB; will give fluid bolus post -op, one dose of Lokelma - 02/24 Cr 1.6, K down to 5.7 this am. Gave oral furosemide 40mg this am and K is down to 4.3, Cr stable at 1.7. Continue to hold irbesartan. Do not give more furosemide at this time. Recheck BMP in am. - 02/25 Cr 1.6, K 3.8. Monitor. RESOLVED (7) Hypertension: Status: Chronic Problem details: propranolol, irbesartan, lasix. irbesartan on hold indefinitely 2/2 hyperkalemia lasix, every other day (8) CKD (chronic kidney disease): Status: Chronic Problem details: 2022 1.4 -1.5 baseline. 2023 post-op 1.8 with hyperkalemia on an ARB DS: Summary Hospital Course Hospital Course: Per H&P: 78 y/o WM with a hx of b/l TKAs in 2021 presents with his 3rd post-op joint infection of the right knee. He saw Dr. Tanner on the day [employer] and two weeks earlier regarding his right knee. He was being treated for a draining superficial abscess on the anterior right knee about 3 weeks ago and had been on keflex from his [place] doc and refilled by Dr. Tanner two weeks ago but yesterday it was felt his oral keflex wasn't working and the concern for a recurrent joint infection was high - thus taken to the OR today for exploration of superficial abscess and explore joint involvement. Ultimately it was felt his right knee joint was involved and a poly exchange and abx seeds were placed after wash out. Surgery was without complication and I meet him on the floor. His original right cap[place] grande knee was replaced in 2021. 3 weeks post-op he was infected. This was in [place]. It sounds like the poly was exchanged and he was in IV vanc. 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 He made it thru this and had a good year until 03/20. He was coming thru [place] on his way to [place] for vacation and came in with bacteremia and septic joint. had a two stage wash out and was ultimately on IV dapto for MSSA. He would go on to finish abx in [place]. However he did develop pneumonia and a PE postoperatively. His also that year. Ultimately he had new hardware placed in 06/19. He did well. He started to experience redness and slight drainage from a bump about 3 weeks ago. He was coming up to [place] for a routine f/u anyway and thats when Dr. Tanner extended his keflex and aspirated this small localized abscess. It grew MSSA. Yesterday, Dr. Tanner saw him and felt he needed to have this explored. Dr. Tanner elected to do an I/D of this abscess but once in surgery (02/23/24) he felt it connected with the joint. he exchanged the poly and placed abx seeds - has multiple cultures pending. Review: Mar 2022 primary right TKA ([place]) Apr 2022 First post op infection (septic joint) --> Vanc gave him RED MAN Feb 2023 - Fell/abrasion - admitted - septic arthritis/bacteremic. MSSA. 2 phase washout (synovectomy; resection arthroplasty, antibiotic spacer) -QUIQUE -complicated by pneumonia (hospitalized in [place]) -complicated by PE (6 months warfarin) -daptomycin (developed neutropenia) May 2023 - Revision right TKA - QUIQUE January 2024 - failed tx for cellulitis --> right total knee TKA irrigation and debridement, poly exchange QUIQUE -Admitted cefepime started Washout done 02/23. Irbesartan was held for BEAN and hyperkalemia. Cr and K improved. Doxycycline added to cefepime due to coag neg staph on cultures. Then resulted as pansensitive Staphylococcus saprophyticus. ID consulted and recommended cefazolin for six weeks: -To switch IV cefepime to IV cefazolin 2 gr q8hr, this dosing is for Cr clearance>30. -Per Medicine Note, the patient will be on Xarelto for at least 3 months, in this case, I would avoid adding rifampin due to risk for drug-drug interaction between rifampin and Xarelto. -While on IV Abx, please monitor labs with CBC/diff and CMP. -Await further OR findings and reimplantation of polyethylene this week. -Pt is going to OR for another washout, follow up new OR cx if they get sent. -As stated above, tentative plan x 6 weeks of IV antibiotics targeting culture results (MSSA and Oxa S CONS) followed by suppressive antibiotics given retained infected hardware, doxycycline 100 mg PO BID would be an oral option x chronic suppression with less risk for potential adverse events including C diff infection, cefadroxil 500 mg PO BID is another oral Abx option for chronic suppression. BC x 2 negative. PICC placed. Discharged on IV cefazolin. F/u with PCP and ortho. Details as above in diagnoses. Time Spent with Patient Time attestation: Total time spent providing and/or coordinating discharge services: 50 minutes to coordinate care with outpatient pharmacy, staff, patient and his son and ortho. Exam Narrative: Exam Narrative: General: No acute distress. Awake, alert, oriented. Cardiovascular: Regular rate and rhythm. No murmurs, gallops, or rubs. Respiratory: Clear to auscultation bilaterally. No wheezes or crackles. Extremities: Right leg immobilizer has been removed. Bandage C/D/I. RLE edema 1+. Trace LLE edema. Const: Vital Signs, click to edit/add: Vital Signs - 24 hr 02/29/24 10:45 02/29/24 12:26 02/29/24 12:31 Temperature 98.2 F 98.2 F Pulse Rate 64 75 Pulse Rate [Left P ulse Oximeter] 69 Respiratory Rate 18 16 16 Blood Pressure 147/70 H 131/69 Blood Pressure [Le ft Arm] Blood Pressure [Ri ght Arm] 129/69 Pulse Oximetry 97 99 100 Oxygen Delivery Me thod Room Air Nasal Cannula Nasal Cannula Oxygen Flow Rate 2 2 02/29/24 14:20 02/29/24 14:25 02/29/24 14:30 Temperature 97.9 F Pulse Rate 68 67 64 Pulse Rate [Left P ulse Oximeter] Respiratory Rate 20 20 15 Blood Pressure 151/78 H 146/81 H 151/78 H Blood Pressure [Le ft Arm] Blood Pressure [Ri ght Arm] Pulse Oximetry 92 94 97 Oxygen Delivery Me thod Room Air Room Air Room Air Oxygen Flow Rate 02/29/24 14:35 02/29/24 14:40 02/29/24 14:45 Temperature 98.5 F Pulse Rate 61 59 L 61 Pulse Rate [Left P ulse Oximeter] Respiratory Rate 15 15 19 Blood Pressure 135/78 132/98 H 132/93 H Blood Pressure [Le ft Arm] Blood Pressure [Ri ght Arm] Pulse Oximetry 98 98 98 Oxygen Delivery Nh thod Room Air Room Air Room Air Oxygen Flow Rate 02/29/24 14:50 02/29/24 14:54 02/29/24 14:56 Temperature 98.6 F 98 F 98.5 F Pulse Rate 61 59 L 59 L Pulse Rate [Left P ulse Oximeter] Respiratory Rate 12 15 15 Blood Pressure 131/77 138/74 132/98 H Blood Pressure [Le ft Arm] Blood Pressure [Ri ght Arm] Pulse Oximetry 97 97 98 Oxygen Delivery Me thod Room Air Room Air Room Air Oxygen Flow Rate 02/29/24 15:15 02/29/24 15:30 02/29/24 15:45 Temperature 97.6 F 97.7 F Pulse Rate 58 L 62 60 Pulse Rate [Left P ulse Oximeter] Respiratory Rate 16 16 14 Blood Pressure 147/80 H 144/78 H 152/83 H Blood Pressure [Le ft Arm] Blood Pressure [Ri ght Arm] Pulse Oximetry 98 97 96 Oxygen Delivery Me thod Room Air Room Air Room Air Oxygen Flow Rate 02/29/24 16:00 02/29/24 16:30 02/29/24 17:00 Temperature 97.4 F L 97.6 F 98 F Pulse Rate 61 63 60 Pulse Rate [Left P ulse Oximeter] Respiratory Rate 14 16 16 Blood Pressure 144/71 H 128/75 135/86 Blood Pressure [Le ft Arm] Blood Pressure [Ri ght Arm] Pulse Oximetry 96 96 98 Oxygen Delivery Me thod Room Air Room Air Room Air Oxygen Flow Rate 02/29/24 18:00 02/29/24 19:00 02/29/24 23:00 Temperature 98.1 F 98.1 F Pulse Rate 81 78 Pulse Rate [Left P ulse Oximeter] Respiratory Rate 16 18 18 Blood Pressure 140/96 H 136/74 Blood Pressure [Le ft Arm] Blood Pressure [Ri ght Arm] Pulse Oximetry 96 95 98 Oxygen Delivery Nh thod Room Air Room Air Room Air Oxygen Flow Rate 02/29/24 23:00 03/01/24 02:14 03/01/24 07:00 Temperature 97.7 F 97.8 F 98.7 F Pulse Rate Pulse Rate [Left P ulse Oximeter] 68 70 64 Respiratory Rate 18 18 20 Blood Pressure Blood Pressure [Le ft Arm] 136/77 135/85 146/67 H Blood Pressure [Ri ght Arm] Pulse Oximetry 96 97 96 Oxygen Delivery Me thod Room Air Room Air Room Air Oxygen Flow Rate 03/01/24 07:00 Temperature Pulse Rate Pulse Rate [Left P ulse Oximeter] Respiratory Rate Blood Pressure Blood Pressure [Le ft Arm] Blood Pressure [Ri ght Arm] Pulse Oximetry Oxygen Delivery Me thod Room Air Oxygen Flow Rate DS: Data Data Completed and Pending Completed studies during hospitalization: Procedures Drainage of Right Knee Joint, Percutaneous Approach, Diagnostic (03/21/23) Excision of Right Knee Joint, Open Approach (03/21/23) Excision of Right Knee Joint, Percutaneous Endoscopic Approach (03/21/23) Insertion of Infusion Device into Superior Vena Cava, Percutaneous Approach (03/21/23) Irrigation of Joints using Irrigating Substance, Percutaneous Endoscopic Approach, Diagnostic (03/21/23) Removal of Spacer from Right Knee Joint, Open Approach (06/15/23) Replacement of Right Knee Joint with Synthetic Substitute, Cemented, Open Approach (06/15/23) Revision of Spacer in Right Knee Joint, Open Approach (03/21/23) Ultrasonography of Superior Vena Cava, Guidance (03/21/23) 02/24/2024 EKG: Note potassium was 6 at the time of this EKG. Normal sinus rhythm, possible anterior infarct, age undetermined. 78 beats per minute. Ordering Physician: Ruby MURILLO Date of Service: 03/01/24 Procedure(s): XR chest 1V portable Accession Number(s): [id number] cc: Ruby MURILLO; Provider,Not a Local~ For Patients: As a result of the Cures Act, medical imaging exams and procedure reports are released immediately into your electronic medical record. You may view this report before your referring provider. If you have questions, please contact your health care provider. INDICATION: PICC line placement. COMPARISON: 03/23/2023 TECHNIQUE: 1 view. FINDINGS: Medical Devices: Right PICC line with its tip at or just below the right superior cavoatrial junction. Lung Volumes: Shallow inspiration. No significant atelectasis. Lungs: Clear lungs. Pleura and Pleural spaces: No significant pleural effusion. No pneumothorax. Mediastinum: Normal cardiomediastinal silhouette. Bony Thorax and Soft Tissues: No significant incidental findings. Chronic healed fracture deformity of the left clavicle. IMPRESSION: Right PICC line with its tip at or just below the right superior cavoatrial junction. Dictated by Peter Forrest MD @ 03/01/2024 7:30:03 AM (Electronically Signed) Labs on day of discharge: Labs from last 24 hours 03/01/24 06:04 WBC 7.57 RBC 3.82 L Hgb 10.7 L Hct 33.5 L MCV 88 MCH 28 MCHC 32 RDW Coeff of Geovanni 15.1 Plt Count 246 Neut % (Auto) 77.8 H Lymph % (Auto) 16.1 L Jack % (Auto) 5.7 Eos % (Auto) 0.0 Baso % (Auto) 0.0 Neut # (Auto) 5.90 Lymph # (Auto) 1.20 Jack # (Auto) 0.40 Eos # (Auto) 0.00 Baso # (Auto) 0.00 Abs Immat Gran (auto) 0.03 Imm/Tot Granulo (auto) 0.4 INR 0.98 Sodium 134 L Potassium 4.3 BUN 33 H Creatinine 1.3 Estimated Creat Clear 44.49 Estimated GFR 57 Preliminary micro results at discharge 02/29/24 Unknown Aerobic Culture - Preliminary Knee,Right Culture in Progress Anaerobic Culture - Preliminary Culture in Progress 02/29/24 Unknown Aerobic Culture - Preliminary Knee,Right Culture in Progress Anaerobic Culture - Preliminary Culture in Progress 02/25/24 12:07 Blood Culture - Preliminary Blood NO GROWTH AFTER 96 HOURS 02/25/24 12:01 Blood Culture - Preliminary Blood NO GROWTH AFTER 96 HOURS Discharge Plan Discharge Disposition: Home, Self-Care Date of Admission: 02/24/24 18:03 Attending Provider on Discharge: Babita Coy Consulting Providers: Sheridan Garcia; Asia Moya; Zachery Ott; Myron Singh; Ruby Andrea; Lacey Dc; Kait Vela; Arely Martinez; Anand Hough; Babita Coy; Myles Jaquez; Alexandru Ann; Jenni Dumas; Nirav Connell; Kofi Melchor; Karlie Bonilla; Fina Burnett; Rd Ferrell; Tone Mantilla; Shaheen Cobb; Sukh Harper; Diego Curiel; Chanell Hoff; Gavino Tamez; Seble Jaime; Pancho Richardson; King Domínguez; Tamiko Mckeon; Erica Sanders; Emely Rivera Primary Care Provider: Provider,Not a Local Condition: Improved Anticipated Discharge Date/Time: 03/01/24 10:29 Discharge Medications: New sennosides [Senna Lax] 8.6 mg Tablet 17.2 mg PO BID PRN (Reason: constipation) Qty: 100 0RF oxycodone 5 mg Tablet 2.5 - 5 mg PO Q4-6H MDD 6 tabs per day PRN (Reason: Pain) Qty: 42 0RF Rx Instructions: Minimize. Discontinue as soon as possible Xarelto 10 mg Tablet 10 mg PO DAILY Qty: 30 0RF Continued propranolol 120 mg capsule,extended release 24 hr 120 mg PO DAILY glipizide 10 mg tablet 10 mg PO DAILY Eylea 2 mg/0.05 mL solution 2 mg intravitreal Q90D Rx Instructions: EVERY 3 MONTHS metformin 500 mg tablet 500 mg PO DAILY aspirin 81 mg capsule 81 mg PO BID ferrous sulfate 325 mg (65 mg iron) tablet 325 mg PO DAILY acetaminophen [Tylenol 8 Hour] 650 mg tablet extended release 650 mg PO Q8H PRN Changed furosemide 20 mg tablet 20 mg PO Q48H Qty: 30 0RF Discontinued irbesartan 75 mg tablet 75 mg PO DAILY cephalexin 500 mg capsule 500 mg PO QID Discharge Orders: Discharge Order (Routine); Ordered 03/01/24 Ordered By: Babita Coy Patient Education: Deep Sedation (DC), Incision and Drainage (DC) Activity Level: Weight Bearing as Tolerated Activity Detail: Keep dressing on for 1 week. Dressing is waterproof. May shower. Surgical glue covers the wound. Attend outpatient physical therapy if scheduled. Ice and elevate operative extremity without restriction. Swelling and bruising will worsen within the first week. When swelling occurs, elevate the extremity above heart level several times a day and gently massage/pull soft tissue swelling toward hip. This allows gravity to assist in eliminating the swelling/edema. Ambulate every hour throughout the day. If you drive, Do not drive while taking narcotic pain medication. Do not drink alcohol while taking narcotic pain medication. May drive when safe to do so and have full function of the extremities, this may take 6 weeks or more. Notify Orthopedics with any questions or concerns. ([phone]). Range of motion is unrestricted. discontinue knee immobilizer. PICC line in place - change dressing through PCP weekly CBC, CMP weekly at PCP's office 6 weeks of Cefazolin 2g IV [id number]: 94: 8pm 9: 4am, 12pm, 9pm 03/03 and ongoinam, 1pm, 9pm Discharge Diet: Diabetic Follow Up Appointments: Miguel Tanner MD [Staff Physician] - 03/01/24 11:00 am Provider,Not a Local [Primary Care Provider] - Forms: MyHealth Info Instructions
[2024-03-01 11:00] VITALS: BP 134/69; PULSE 63; RESP 16; TEMP 37.1; O2SAT 98
--- NOTE | 2024-03-01 11:26 | PC.SOCIAL ---
Discharge planning: [facility]veline home infusion nurse came to the hospital for teaching with pt. Eveline has arranged plan with pt and shared that pt will be discharging home with son today and then go back to his own home in [place] when he decides to do so. Eveline will provide all needed medication and supplies for this in [place] or delivered to his home in [place]. If pt is in [place] next in a week, on 03/08/24, he will need dressing change. to write for pt to have this done as an out-pt at [facility]. If he has gone back to [place] prior to this date, pt will arrange this care as needed with his primary care physician in [place].
--- NOTE | 2024-03-01 11:29 | P.ORPN_ITS ---
Subjective Subjective Time Seen by Provider: 07:45 Date Seen: 03/01/24 Principal diagnosis: One day s/p right total knee arthroplasty I&D and poly exchange Interval history: Winston is comfortable. His son Shaheen accompanies him this morning. He had a PICC line placed this morning. He will stay at his son's house for 1 week and then go back to I walk next week. He will have infusions in his home every 8 hours. Ortho Exam Narrative Exam Narrative: Alert and oriented x3. Patient is in no acute distress. Converses without labored breathing. Hearing is grossly intact. Ambulates with a walker. Examination of right knee shows compression dressing with Mich bandages in place. Minimal soft tissue edema about the lower leg. The knee immobilizer is removed. It is discontinued. CMS intact right lower extremity. He is able to straight leg raise. Calf is soft and nontender. Const Vital Signs, click to edit/add: Vital Signs - 24 hr 02/29/24 12:26 02/29/24 12:31 02/29/24 14:20 Temperature 98.2 F 97.9 F Pulse Rate 64 75 68 Pulse Rate [Left Pulse Oximeter] Respiratory Rate 16 16 20 Blood Pressure 147/70 H 131/69 151/78 H Blood Pressure [Left Arm] Pulse Oximetry 99 100 92 Oxygen Delivery Method Nasal Cannula Nasal Cannula Room Air Oxygen Flow Rate 2 2 02/29/24 14:25 02/29/24 14:30 02/29/24 14:35 Temperature 98.5 F Pulse Rate 67 64 61 Pulse Rate [Left Pulse Oximeter] Respiratory Rate 20 15 15 Blood Pressure 146/81 H 151/78 H 135/78 Blood Pressure [Left Arm] Pulse Oximetry 94 97 98 Oxygen Delivery Method Room Air Room Air Room Air Oxygen Flow Rate 02/29/24 14:40 02/29/24 14:45 02/29/24 14:50 Temperature 98.6 F Pulse Rate 59 L 61 61 Pulse Rate [Left Pulse Oximeter] Respiratory Rate 15 19 12 Blood Pressure 132/98 H 132/93 H 131/77 Blood Pressure [Left Arm] Pulse Oximetry 98 98 97 Oxygen Delivery Method Room Air Room Air Room Air Oxygen Flow Rate 02/29/24 14:54 02/29/24 14:56 02/29/24 15:15 Temperature 98 F 98.5 F 97.6 F Pulse Rate 59 L 59 L 58 L Pulse Rate [Left Pulse Oximeter] Respiratory Rate 15 15 16 Blood Pressure 138/74 132/98 H 147/80 H Blood Pressure [Left Arm] Pulse Oximetry 97 98 98 Oxygen Delivery Method Room Air Room Air Room Air Oxygen Flow Rate 02/29/24 15:30 02/29/24 15:45 02/29/24 16:00 Temperature 97.7 F 97.4 F L Pulse Rate 62 60 61 Pulse Rate [Left Pulse Oximeter] Respiratory Rate 16 14 14 Blood Pressure 144/78 H 152/83 H 144/71 H Blood Pressure [Left Arm] Pulse Oximetry 97 96 96 Oxygen Delivery Method Room Air Room Air Room Air Oxygen Flow Rate 02/29/24 16:30 02/29/24 17:00 02/29/24 18:00 Temperature 97.6 F 98 F 98.1 F Pulse Rate 63 60 81 Pulse Rate [Left Pulse Oximeter] Respiratory Rate 16 16 16 Blood Pressure 128/75 135/86 140/96 H Blood Pressure [Left Arm] Pulse Oximetry 96 98 96 Oxygen Delivery Method Room Air Room Air Room Air Oxygen Flow Rate 02/29/24 19:00 02/29/24 23:00 02/29/24 23:00 Temperature 98.1 F 97.7 F Pulse Rate 78 Pulse Rate [Left Pulse Oximeter] 68 Respiratory Rate 18 18 18 Blood Pressure 136/74 Blood Pressure [Left Arm] 136/77 Pulse Oximetry 95 98 96 Oxygen Delivery Method Room Air Room Air Room Air Oxygen Flow Rate 03/01/24 02:14 03/01/24 07:00 03/01/24 07:00 Temperature 97.8 F 98.7 F Pulse Rate Pulse Rate [Left Pulse Oximeter] 70 64 Respiratory Rate 18 20 Blood Pressure Blood Pressure [Left Arm] 135/85 146/67 H Pulse Oximetry 97 96 Oxygen Delivery Method Room Air Room Air Room Air Oxygen Flow Rate Assessment and Plan Assessment and plan (1) 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 Status: Acute (2) S/P right knee surgery: Problem details: Right total knee arthroplasty irrigation and debridement, poly exchange (02/24/2024, Dr. Tanner) Right total knee arthroplasty irrigation and debridement, poly exchange (02/29/24 Dr. Tanner) Status: Acute Assessment and Plan: Plan for discharge is today to home if they meet discharge criteria. DVT prophylaxis includes Xarelto Compression stockings as needed for swelling. Frequent ambulation, every hour throughout the day. Remove dressing in 1 week. Observe wound and phone Orthopedics with any questions or concerns Return to clinic in 1 week for a wound check Return to clinic in 6 weeks with surgeon Minimize narcotic use. Wean off and discontinue soon as possible. Activities as tolerated. No strenuous activity. He would benefit from in-home PT. Ice and elevate the operative extremity. No restriction on ice. He has to ice machines. Dr. Coy recommends weekly CBC, CMP, picc bandage change weekly. My nurses Nasrin and Lety will assist in coordinating this. Winston states his primary doctor's name is Chanell Mendez. This will be done in [place].
[2024-03-01] MEDS: INSULIN ASPART 100 UNIT/ML SUBCUT (11:56)
--- NOTE | 2024-03-01 13:37 | PC.NURSE ---
Pt discharged to home @ 1319 via wheelchair, accompanied by son. Pt signed belonging and discharge forms.
--- NOTE | 2024-03-01 18:57 | REH.OT ---
OT: Order received after I&D, chart reviewed, OT met with patient and son who decline need for OT evaluation. Patient and son did explain he has stayed in son's home after prior knee surgeries and have DME and modified set up to work for patient. They are familiar with role of OT, DME/AE to aid independence and plan to follow up with PT.
--- OUTSIDE RECORDS SUMMARY | 2024-03-08 08:48 | XMS_ITS | Clinical Summary ---
Author Organization [facility] Address [address] [place] [address] Care Team Providers Care Machine Technician Name Role Phone MendezChanell wilkerson Catherine THACKER Primary Care Provider Antelmo Gonzalez MD Unavailable Source Comments This disclosure is being made pursuant to the [employer] program and maynot contain all information available regarding this patient.[facility] Allergies Active Allergy Reactions Criticality Noted Date Comments Hydromorphone Hallucinations Medium 07/12/2023 Vancomycin Rash Low 07/01/2022 Caused BEAN, Angioedema Vancomycin Hcl Swelling High 07/12/2023 Medications Medication Sig Dispensed Refills Start Date End Date Status Continuous Blood Gluc Sensor (FreeStyle Nadira 2 Sensor Systm) [facility] directed 06/23/2022 A ctive [...] Overview (01/13/2023): Records from Dr. Riley Diane, [facility] Hyperlipidemia 01/13/2023 01/13/2023 Overview (01/13/2023): Records from Dr. Riley Diane, [facility] Hypertension 01/13/2023 01/13/2023 Overview (01/13/2023): Records from Dr. Riley Diane, [facility] Osteoarthritis of right knee 01/13/2023 Obesity 01/13/2023 01/13/2023 Overview (01/13/2023): Records from Dr. Riley Diane, [facility] Shoulder joint pain 01/13/2023 01/13/2023 Type 2 diabetes mellitus 01/13/2023 023 Overview (01/13/2023): Records from Dr. 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 (Primary Dx) 01/03/2024 Refill [facility] [place] [address] [place] [address] Concepcion Serrano MD 01/02/2024 Travel 12/27/2023 Orders Only [facility] Nephrology [address] [facility] [address] [place] [id number] Mable Mon, CLIENT SERVICE REPRESENTATIVE Type 2 diabetes mellitus with stage 3a [...] Wellness (AWV) 04/27/2012 COVID-19 Vaccine ( season) 2024 03/11/2022, 10/24/2021, 04/25/2021, Additional history exists Influenza [...] Serrano MD URINE ORDERABLES Performing Organization Address City/[facility] Co de Phone Number EXTERNAL NON [...] 1:34 PM CDT) Sodium, Blood 138 mmol/L CREMATOR AL NON UPH - NO INTERFACE Potassium, [...] INTERFACE from Last 3 Months Care Teams Machine Technician Relationship Specialty Start Date End Date Chanell Mendez ARNP PCP - General Family Medicine 11/13/21 Antelmo Gonzalez MD [facility] [address] [place] [address] Receiving Worker Cardiology 09/30/23
--- OUTSIDE RECORDS SUMMARY | 2024-03-08 08:48 | XMS_ITS | Encounter Summary ---
[facility] Organization [facility] Address [address] [place] [address] Care Team Providers Care [employer] Name Role Phone Chanell Mendez KEDAR Primary Care Provider [phone] Antelmo Gonzalez MD Unavailable [phone] Reason for Visit * Reason Comments Medication Refill Encounter Details Date Type Department Care Team (Late st Contact Info) Description 01/03/2024 Refill [facility] [place] [address] [place], [place] [id number] Concepcion Serrano MD [address] [address] Social History Tobacco Use Types [...] on filedocumented in this encounter Care Teams [employer] Relationship Specialty Start Date End Date Chanell Mendez ARNP PCP - General Family Medicine 11/13/21 Antelmo Gonzalez MD [address] [place] [address] Personal Loan Specialist Cardiology 09/30/23 documented as of this encounter
--- OUTSIDE RECORDS SUMMARY | 2024-03-08 08:48 | XMS_ITS | Encounter Summary ---
Author Organization [facility] Address [address] [place] [address] Care Team Providers Care Compressor Operator Portable Name Role Phone Chanell Mendez Primary Care [...] on filedocumented in this encounter Care Teams Compressor Operator Portable Relationship Specialty Start Date End Date Chanell Mendez ARNP PCP - General Family Medicine 11/13/21 Antelmo Gonzalez MD [address] [facility] [address] [place] [id number] Director Of Regulatory Affairs Cardiology 09/30/23 documented as of this encounter
--- OUTSIDE RECORDS SUMMARY | 2024-03-08 08:48 | XMS_ITS | Patient Health Record ---
Author Organization [facility] Address [address] [place], [place] [id number] Care Team Providers Care Equipment Installer Name Role Phone JARRETT JOHNSON Primary Care [...] total right knee replacement (Z96.651) Active confirmed [id number] Problem Right shoulder pain, unspecified chronicity (M25.511) Active confirmed [id number] Problem Left shoulder pain, unspecified chronicity (M25.512) Active confirmed [id number] Problem Arthritis of left knee (M17.12) Active confirmed [id number] Problem Osteoarthritis of right knee, unspecified osteoarthritis type (M17.11) Active confirmed [id number] Problem History of knee surgery (Z98.890) Active confirmed History of knee surgery (095401882) Problem Failed total right knee replacement, 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
--- OUTSIDE RECORDS SUMMARY | 2024-03-08 08:48 | XMS_ITS | Encounter Summary ---
Author Organization [facility] [facility] Address [address] [place] [address] Care Team Providers Care Filling Hand Name Role Phone Chanell Mendez Catherine THACKER Primary Care Provider Antelmo Gonzalez MD Unavailable [phone] Reason for Visit * Reason Comments Follow-up 6 months Encounter Details Date Type Department Care Team (Late st Contact Info) Description 01/03/2024 9:00 AM CDT Office Visit [facility] Nephrology [place] [address] [place] [address] Concepcion Serrano MD [address] [phone] Hypertensive nephrosclerosis, stage 1-4 or [...] routine exams, screenings, and immunizations with your [facility] Care Team. As your health point of care technician, we want you to know how important [...] You have not had all of the [facility] recommended pneumonia vaccines (Prevnar-13 [...] Primary documented in this encounter Care Teams Filling Hand Relationship Specialty Start Date End Date Chanell Mendez ARNP PCP - General Family Medicine 11/13/21 Antelmo Gonzalez MD [address] [place] [id number] Dope Weigh Operator Cardiology 09/30/23 documented as of this encounter
--- OUTSIDE RECORDS SUMMARY | 2024-03-08 08:49 | XMS_ITS | Encounter Summary ---
Author Organization [facility] Address [address] [place] [address] Care Team Providers Care Lan Manager Name Role Phone Chanell Menedz Catherine THACKER Primary Care Provider Antelmo Gonzalez MD Unavailable [phone] Encounter Details Date Type Department Care Team (Late st Contact Info) Description 12/27/2023 Orders Only [facility] Nephrology [address] [place] [address] Mable Mon, TEXTILE MACHINE MECHANIC [address] [place] [address] Type 2 diabetes mellitus with [...] Serrano MD URINE ORDERABLES Performing Organization Address [facility] Co de Phone Number EXTERNAL NON UPH - NO INTERFACE * Renal function panel (12/27/2023 1:34 PM CDT) Sodium, Blood 138 mmol/L CONTACT OFFICER AL NON UPH - NO INTERFACE Potassium, [...] MD LAB BLOOD ORDERABLES Performing Organization Address [facility] Co de Phone Number EXTERNAL NON UPH - NO INTERFACE documented in this encounter Visit Diagnoses Diagnosis Type 2 diabetes mellitus with stage 3a chronic kidney disease, without long-term current use of insulin documented in this encounter Care Teams Lan Manager Relationship Specialty Start Date End Date Chanell Mendez ARNP PCP - General Family Medicine 11/13/21 [place] [address] Hub Bander Cardiology 09/30/23 documented as of this encounter
== END 2024-03-01 13:19 | disposition home or self-care (01) | DRG 486 ==
LOC: OR 02-25 08:06 → MEDSURG 02-29 09:32
PROVIDERS: Family Medicine; Student in an Organized Health Care Education/Training Program; Admitting Provider Family Medicine; Visit Provider Orthopaedic Surgery
PROC: 0SPC09Z Removal of Liner from Right Knee Joint, Open Approach (ICD-10-PCS; principal; 2024-02-24 13:45)
DX: T84.53XA Infection and inflammatory reaction due to internal right knee prosthesis, initial encounter (principal); M00.061 Staphylococcal arthritis, right knee; N17.9 Acute kidney failure, unspecified; B95.7 Other staphylococcus as the cause of diseases classified elsewhere; G89.18 Other acute postprocedural pain; I12.9 Hypertensive chronic kidney disease with stage 1 through stage 4 chronic kidney disease, or unspecified chronic kidney disease; N18.32 Chronic kidney disease, stage 3b; E11.22 Type 2 diabetes mellitus with diabetic chronic kidney disease; Z79.84 Long term (current) use of oral hypoglycemic drugs; E87.5 Hyperkalemia; Z86.711 Personal history of pulmonary embolism; Z79.01 Long term (current) use of anticoagulants; E66.9 Obesity, unspecified; Z68.35 Body mass index [BMI] 35.0-35.9, adult; K21.9 Gastro-esophageal reflux disease without esophagitis; M10.9 Gout, unspecified; E78.5 Hyperlipidemia, unspecified; Z96.651 Presence of right artificial knee joint; Z96.652 Presence of left artificial knee joint
CPT/HCPCS: 01402; 36415; 36573; 64447; 64454; 71045; 76942; 80048; 80069; 80076; 82565; 82803; 82962; 83036; 83605; 83880; 84132; 84145; 84295; 84443; 84484; 84520; 85025; 85610; 86140; 87040; 87070; 87075; 87186; 87205; 93005; 97110; 97116; 97161; 97165; 97530; 97535; 99100; A9270; C1751; C1776; J0690; J0692; J1100; J1815; J2250; J2371; J2405; J2704; J2795; J3010; J7030; J7050; J7120